=== PATIENT | female | born 1970 | race Caucasian/White ===

== ENCOUNTER → 2016-12-19 | Outpatient (REF) | payer OTHER ==
[~2016-12-19] MED LIST: /ACETCOD2T PO; /LAMO10TA OR; /LAMO10TA PO; /LOR25TA PO; BUSP10TA2 OR; BUSP30TA OR; CELE40TA OR; CLIN300C OR; EFFE150C OR; FLEXERIL PO; FOLI1TAB OR; FURO20TA2 OR; HYDR7.5T38 PO; HYDROCODONE PO; HYDROCODONE/APAP; HYDROCODONE/APAP PO; IMIT100T OR; IMIT5SPR SQ; L-THPOW PO; LASI20TA OR; LASI20TA PO; LEVA500T OR; LEVO150T OR; LEVO200T OR; LITH300T2 OR; LYRI75CA OR; LYRI75CA PO; MINI2CAP PO; MIRALEX OR; MULTIVIT PO; NABU500T OR; NEUR300C OR; NICORETTE GUM OR; NORCOBULK PO; PRED10TA2 OR; PRED50TA OR; RELP40TA PO; REME15TA PO; SAPH1SUB10 SL; SAPH5SUB3 PO; SAPHRIS SL; SENN8.6T5 OR; SERO200T OR; SERO200T PO; SERO200T2 PO; SERO400T OR; SERO400T PO; SOMA350T OR; SOMA350T PO; Saphris SL; TOPA100T8 PO; TOPA50TA7 PO; TRAZ300T2 PO; TRAZ50TA OR; TRAZ50TA2 PO; VENL100T OR; VENL150C43 PO; VENTAER INH; VITA-113 PO; VITAMIN B1 PO; VOLT1GEL EX; XANA1TAB2 OR; XANA1TAB2 PO; ZOMI5TAB PO; ZONI50CA3 PO; ZONISAMIDE OR; ZONISAMIDE PO; [UNRECOGNIZED DRUG - CODE] PO; [UNRECOGNIZED DRUG - OTHER] SL; liothyronine PO; lortab PO; norco OR; vitamin b12 IM; zonisamide OR
[2016-12-20 13:38] LABS: CALCIUM OXALATE CRYSTALS LARGE
== END ==
LOC: M LAB REF 12:21
PROVIDERS: ATTEND Family Medicine Addiction Medicine
DX: R31.0 Gross hematuria (principal)

== ENCOUNTER → 2017-03-17 | Outpatient (CLI) | payer OTHER ==
[2017-03-17 13:06] LABS: ALBUMIN 3.6 GM/DL (3.2-5.2); ALBUMIN/GLOBULIN RATIO 0.92 (1.00-1.93); ALKALINE PHOSPHATASE 84 U/L (45-117); ALT/SGPT 19 U/L (12-78); ANION GAP 6 MEQ/L (8-16); AST/SGOT 8 U/L (15-37); BILIRUBIN,TOTAL 0.2 MG/DL (0.2-1.0); BLOOD UREA NITROGEN 10 MG/DL (7-18); CALCIUM LEVEL 8.7 MG/DL (8.5-10.1); CARBON DIOXIDE LEVEL 25 MEQ/L (21-32); CHLORIDE LEVEL 109 MEQ/L (98-107); CHOLESTEROL LEVEL 252 MG/DL (<200); CREATININE FOR GFR 0.76 MG/DL (0.55-1.02); GLOMERULAR FILTRATION RATE > 60.0 (>58); GLUCOSE, FASTING 88 MG/DL (70-105); SODIUM LEVEL 140 MEQ/L (136-145); TOTAL PROTEIN 7.5 GM/DL (6.4-8.2); TRIGLYCERIDES LEVEL 74 MG/DL (<150)
== END ==
LOC: M LAB 11:52
PROVIDERS: ATTEND Family Medicine Addiction Medicine
DX: E03.8 Other specified hypothyroidism (principal); E55.9 Vitamin D deficiency, unspecified

== ENCOUNTER → 2017-03-17 | Outpatient (CLI) | payer OTHER ==
[2017-03-17 12:29] LABS: BASO # 0.1 K/mm3 (0.0-0.2); BASO % 0.8 % (0.0-1.0); EOS # 0.1 K/mm3 (0.0-0.50); EOS % 1.8 % (0.0-3.0); LYMPH # 1.7 K/mm3 (1.5-4.5); MEAN CORPUSCULAR HEMOGLOBIN 32.7 pg (27.0-33.0); MEAN CORPUSCULAR HGB CONC 32.9 g/dl (32.0-36.5); MEAN CORPUSCULAR VOLUME 99.4 fl (80.0-96.0); MONO # 0.4 K/mm3 (0.0-0.8); MONO % 4.8 % (0.0-5.0); NEUTROPHILS % 67.9 % (36.0-66.0); RED CELL DISTRIBUTION WIDTH 12.7 % (11.5-14.5); WHITE BLOOD COUNT 7.3 K/mm3 (4.0-10.0)
[2017-03-17 12:59] LABS: ALBUMIN 3.6 GM/DL (3.2-5.2); ALBUMIN/GLOBULIN RATIO 0.95 (1.00-1.93); ALKALINE PHOSPHATASE 80 U/L (45-117); ALT/SGPT 15 U/L (12-78); ANION GAP 6 MEQ/L (8-16); AST/SGOT 7 U/L (15-37); BILIRUBIN,TOTAL 0.2 MG/DL (0.2-1.0); BLOOD UREA NITROGEN 11 MG/DL (7-18); CALCIUM LEVEL 8.6 MG/DL (8.5-10.1); CARBON DIOXIDE LEVEL 25 MEQ/L (21-32); CHLORIDE LEVEL 109 MEQ/L (98-107); CREATININE FOR GFR 0.77 MG/DL (0.55-1.02); GLOMERULAR FILTRATION RATE > 60.0 (>58); GLUCOSE, FASTING 92 MG/DL (70-105); POTASSIUM SERUM 4.1 MEQ/L (3.5-5.1); SODIUM LEVEL 140 MEQ/L (136-145); TOTAL PROTEIN 7.4 GM/DL (6.4-8.2)
[2017-03-21 14:15] LABS: TOPIRAMATE LEVEL 4.8 ug/mL (2.0-25.0)
== END ==
LOC: M LAB 11:57
PROVIDERS: ATTEND Psychiatry & Neurology Neurology
DX: G40.89 Other seizures (principal)

== ENCOUNTER → 2017-03-29 | Outpatient (REF) | payer OTHER | LOC: M LAB REF 17:02 | PROVIDERS: ATTEND Family Medicine Addiction Medicine | DX: E55.9 Vitamin D deficiency, unspecified (principal) ==

== ENCOUNTER 2017-05-30 12:32 | Emergency (ER) | payer OTHER ==
[~2017-05-30] VITALS: Ht 160 cm; Wt 73.0 kg
[~2017-05-30 12:32] MED LIST changes: +TOPA100T12 PO; -TOPA100T8 PO; -TOPA50TA7 PO; +TOPA50TA8 PO
[2017-05-30 12:36] VITALS: BP 109/72
[2017-05-30] MEDS ORDERED: NS 1,000 ML IV SCH (12:51)
[2017-05-30 13:25] LABS: VENOUS BASE EXCESS -5.1 (-2.0-2.0); VENOUS O2 SATURATION 92.9 % (60.0-80.0); VENOUS PARTIAL PRESSURE O2 66.7 mmHg (30.0-50.0); VENOUS STANDARD HCO3 20.2 MEQ/L; VENOUS TOTAL CO2 21.5 MEQ/L (24.0-28.0)
[2017-05-30 13:48] LABS: BASO % 0.4 % (0.0-1.0); EOS # 0.1 K/mm3 (0.0-0.50); EOS % 0.9 % (0.0-3.0); LARGE UNSTAINED CELL # 0.2 K/mm3 (0.0-0.4); LARGE UNSTAINED CELL % 1.6 % (0.0-4.0); LYMPH # 2.4 K/mm3 (1.5-4.5); LYMPH % 23.7 % (24.0-44.0); MEAN CORPUSCULAR HEMOGLOBIN 32.9 pg (27.0-33.0); MEAN CORPUSCULAR HGB CONC 33.9 g/dl (32.0-36.5); MEAN CORPUSCULAR VOLUME 96.9 fl (80.0-96.0); MONO # 0.4 K/mm3 (0.0-0.8); MONO % 3.6 % (0.0-5.0); NEUTROPHILS # 7.2 K/mm3 (1.8-7.7); NEUTROPHILS % 69.8 % (36.0-66.0); PLATELET COUNT, AUTOMATED 246 k/mm3 (150-450); RED CELL DISTRIBUTION WIDTH 12.6 % (11.5-14.5); WHITE BLOOD COUNT 10.3 K/mm3 (4.0-10.0)
[2017-05-30 13:54] LABS: CONTROL LINE HCG INT CTR LINE PRESENT
[2017-05-30] MEDS ORDERED: XANA0.25 PO (14:11)
[2017-05-30 14:29] LABS: ALBUMIN 3.5 GM/DL (3.2-5.2); ALKALINE PHOSPHATASE 78 U/L (45-117); ALT/SGPT 19 U/L (12-78); ANION GAP 10 MEQ/L (8-16); AST/SGOT 10 U/L (15-37); BILIRUBIN,DIRECT < 0.1 MG/DL (0.0-0.2); BILIRUBIN,TOTAL 0.2 MG/DL (0.2-1.0); BLOOD UREA NITROGEN 10 MG/DL (7-18); CALCIUM LEVEL 8.2 MG/DL (8.5-10.1); CARBON DIOXIDE LEVEL 20 MEQ/L (21-32); CHLORIDE LEVEL 110 MEQ/L (98-107); CREATININE FOR GFR 0.71 MG/DL (0.55-1.02); GLOMERULAR FILTRATION RATE > 60.0 (>58); GLUCOSE, FASTING 69 MG/DL (70-105); POTASSIUM SERUM 4.3 MEQ/L (3.5-5.1); SODIUM LEVEL 140 MEQ/L (136-145)
--- NOTE | 2017-06-01 08:25 | ECGEPIP ---
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
== END 2017-05-30 15:53 | disposition left against medical advice (07) ==
LOC: M ED 12:32
DX: R55 Syncope and collapse (principal); J45.909 Unspecified asthma, uncomplicated; Z72.0 Tobacco use; E03.9 Hypothyroidism, unspecified
CPT/HCPCS: 36415; 80048; 80076; 82550; 82803; 83930; 84443; 84703; 85025; 93005; 93041; 94760; 99285; G0480

== ENCOUNTER 2017-06-02 19:11 | Emergency (ER) | payer OTHER ==
[~2017-06-02] VITALS: Ht 160 cm; Wt 80.0 kg
[~2017-06-02 19:11] MED LIST changes: +XANA0.25 PO
[2017-06-02] MEDS ORDERED: NS 1,000 ML IV ONE (19:15)
[2017-06-02 19:42] LABS: VENOUS BASE EXCESS -6.9 (-2.0-2.0); VENOUS O2 SATURATION 99.1 % (60.0-80.0); VENOUS PARTIAL PRESSURE CO2 33.8 mmHg (38.0-50.0); VENOUS PARTIAL PRESSURE O2 158.7 mmHg (30.0-50.0); VENOUS TOTAL CO2 18.9 MEQ/L (24.0-28.0)
[2017-06-02 19:44] LABS: BASO % 0.7 % (0.0-1.0); EOS # 0.1 K/mm3 (0.0-0.50); EOS % 1.5 % (0.0-3.0); LARGE UNSTAINED CELL # 0.2 K/mm3 (0.0-0.4); LARGE UNSTAINED CELL % 2.5 % (0.0-4.0); LYMPH # 2.5 K/mm3 (1.5-4.5); LYMPH % 33.7 % (24.0-44.0); MEAN CORPUSCULAR HEMOGLOBIN 31.6 pg (27.0-33.0); MEAN CORPUSCULAR HGB CONC 33.1 g/dl (32.0-36.5); MEAN CORPUSCULAR VOLUME 95.7 fl (80.0-96.0); MONO # 0.4 K/mm3 (0.0-0.8); MONO % 6.2 % (0.0-5.0); NEUTROPHILS # 3.9 K/mm3 (1.8-7.7); NEUTROPHILS % 55.4 % (36.0-66.0); PLATELET COUNT, AUTOMATED 258 k/mm3 (150-450); RED CELL DISTRIBUTION WIDTH 12.6 % (11.5-14.5)
[2017-06-02 20:26] LABS: ALBUMIN 3.7 GM/DL (3.2-5.2); ALBUMIN/GLOBULIN RATIO 1.03 (1.00-1.93); ALKALINE PHOSPHATASE 81 U/L (45-117); ALT/SGPT 14 U/L (12-78); ANION GAP 13 MEQ/L (8-16); AST/SGOT 7 U/L (15-37); BILIRUBIN,DIRECT < 0.1 MG/DL (0.0-0.2); BILIRUBIN,TOTAL 0.2 MG/DL (0.2-1.0); BLOOD UREA NITROGEN 6 MG/DL (7-18); CALCIUM LEVEL 8.6 MG/DL (8.5-10.1); CARBON DIOXIDE LEVEL 17 MEQ/L (21-32); CHLORIDE LEVEL 111 MEQ/L (98-107); CREATININE FOR GFR 0.84 MG/DL (0.55-1.02); GLOMERULAR FILTRATION RATE > 60.0 (>58); GLUCOSE, FASTING 97 MG/DL (70-105); POTASSIUM SERUM 3.5 MEQ/L (3.5-5.1); SODIUM LEVEL 141 MEQ/L (136-145); TOTAL PROTEIN 7.3 GM/DL (6.4-8.2)
[2017-06-02 22:08] LABS: METHADONE URINE NEGATIVE (NEGATIVE)
[2017-06-03 00:45] VITALS: BP 130/73
[2017-06-03] MEDS ORDERED: LAMI1TAB7 PO (07:57)
[2017-06-03] MEDS ORDERED: ALBU17IN INH (07:57)
[2017-06-03] MEDS ORDERED: SERO400T PO (07:57)
[2017-06-03] MEDS ORDERED: ALPR1TAB3 PO (07:57)
[2017-06-03] MEDS ORDERED: SERO1TAB PO (07:57)
[2017-06-03] MEDS ORDERED: LEVO88TA24 PO (07:57)
[2017-06-03] MEDS ORDERED: PRAZ2CAP PO (07:57)
[2017-06-03] MEDS ORDERED: ASEN5TA SL (07:57)
[2017-06-03] MEDS ORDERED: CARI350T PO (07:57)
[2017-06-03] MEDS ORDERED: TOPA50TA8 PO ×2 (08:01)
[2017-06-03] MEDS ORDERED: ZONI100C2 PO (08:01)
[2017-06-03] MEDS ORDERED: IMIT6INJ SC (08:01)
[2017-06-03] MEDS ORDERED: VITA100066 PO (08:01)
[2017-06-03] MEDS ORDERED: VENL150C43 PO (08:01)
--- NOTE | 2017-06-03 21:32 | ECGEPIP ---
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
== END 2017-06-03 01:40 | disposition home or self-care (01) ==
LOC: M ED 19:11
DX: T42.4X1A Poisoning by benzodiazepines, accidental (unintentional), initial encounter (principal); T42.8X1A Poisoning by antiparkinsonism drugs and other central muscle-tone depressants, accidental (unintentional), initial encounter

== ENCOUNTER 2017-06-03 04:23 | Inpatient (IN) | payer OTHER ==
[~2017-06-03] VITALS: Ht 160 cm; Wt 78.9 kg
[2017-06-03 06:18] LABS: MEAN CORPUSCULAR HEMOGLOBIN 32.3 pg (27.0-33.0); MEAN CORPUSCULAR HGB CONC 33.3 g/dl (32.0-36.5); MEAN CORPUSCULAR VOLUME 96.8 fl (80.0-96.0); RED CELL DISTRIBUTION WIDTH 12.7 % (11.5-14.5); WHITE BLOOD COUNT 9.3 K/mm3 (4.0-10.0)
[2017-06-03 06:36] LABS: METHADONE URINE NEGATIVE (NEGATIVE)
[2017-06-03] MEDS ORDERED: LEVO88TA24 PO (07:57)
[2017-06-03] MEDS ORDERED: SERO1TAB PO (07:57)
[2017-06-03] MEDS ORDERED: CARI350T PO (07:57)
[2017-06-03] MEDS ORDERED: PRAZ2CAP PO (07:57)
[2017-06-03] MEDS ORDERED: SERO400T PO (07:57)
[2017-06-03] MEDS ORDERED: ALBU17IN INH (07:57)
[2017-06-03] MEDS ORDERED: LAMI1TAB7 PO (07:57)
[2017-06-03] MEDS ORDERED: ASEN5TA SL (07:57)
[2017-06-03] MEDS ORDERED: ALPR1TAB3 PO (07:57)
[2017-06-03] MEDS ORDERED: VENL150C43 PO (08:01)
[2017-06-03] MEDS ORDERED: TOPA50TA8 PO ×2 (08:01)
[2017-06-03] MEDS ORDERED: IMIT6INJ SC (08:01)
[2017-06-03] MEDS ORDERED: ZONI100C2 PO (08:01)
[2017-06-03] MEDS ORDERED: VITA100066 PO (08:01)
[2017-06-03 09:10] LABS: ALBUMIN 3.4 GM/DL (3.2-5.2); ALKALINE PHOSPHATASE 79 U/L (45-117); ALT/SGPT 13 U/L (12-78); ANION GAP 10 MEQ/L (8-16); AST/SGOT 8 U/L (15-37); BILIRUBIN,DIRECT < 0.1 MG/DL (0.0-0.2); BILIRUBIN,TOTAL 0.3 MG/DL (0.2-1.0); BLOOD UREA NITROGEN 4 MG/DL (7-18); CALCIUM LEVEL 8.5 MG/DL (8.5-10.1); CARBON DIOXIDE LEVEL 22 MEQ/L (21-32); CHLORIDE LEVEL 114 MEQ/L (98-107); CREATININE FOR GFR 0.64 MG/DL (0.55-1.02); GLOMERULAR FILTRATION RATE > 60.0 (>58); GLUCOSE, FASTING 74 MG/DL (70-105); POTASSIUM SERUM 3.9 MEQ/L (3.5-5.1); SODIUM LEVEL 146 MEQ/L (136-145); TOTAL PROTEIN 6.8 GM/DL (6.4-8.2)
[2017-06-03] MEDS ORDERED: LEVOTHYROXINE 88MCG TABLET (0.088 MG) PO SCH (09:30)
[2017-06-03] MEDS ORDERED: VITAMIN D 1,000 INTERNATIONAL UNITS TABLET PO SCH (09:30)
[2017-06-03] MEDS ORDERED: VENLAFAXINE **XR** 75MG CAPSULE PO ONE ×2 (09:30→21:00)
[2017-06-03] MEDS ORDERED: lamoTRIgine 100MG TAB PO ONE (09:30)
[2017-06-03] MEDS ORDERED: ASENAPINE 5 MG SUBLINGUAL TAB (SAPHRIS) SL SCH (09:30)
[2017-06-03] MEDS ORDERED: TOPIRAMATE (TopAMAX) 25 MG TAB PO ONE (09:30)
[2017-06-03 12:57] VITALS: BP 133/88
[2017-06-03] MEDS ORDERED: MOM 30ML SUSPENSION UDC PO PRN (15:30)
[2017-06-03] MEDS ORDERED: ALBUTEROL 90 MCG/ACT 8GM HFA INHALER INH PRN (15:30)
[2017-06-03] MEDS ORDERED: MAALOX 30 ML SUSP *UDC PO PRN (15:30)
[2017-06-03] MEDS ORDERED: SUMAtriptan SUCCINATE 6 MG/0.5 ML VIAL SC PRN (15:30)
[2017-06-03 18:00] VITALS: BP 132/85
[2017-06-03] MEDS: ASENAPINE 5 MG SUBLINGUAL TAB (SAPHRIS) SL SCH (21:40)
[2017-06-03] MEDS: VITAMIN D 1,000 INTERNATIONAL UNITS TABLET PO SCH (21:40)
[2017-06-03] MEDS: ZONISAMIDE 100 MG CAP (ZONEGRAN) PO SCH (21:41)
[2017-06-03] MEDS: QUEtiapine FUMARATE 200 MG TAB PO SCH (21:41)
[2017-06-03] MEDS: TOPIRAMATE (TopAMAX) 100 MG TAB PO SCH (21:41)
[2017-06-03] MEDS: lamoTRIgine 100MG TAB PO SCH (21:41)
[2017-06-03] MEDS: traZODone 50 MG TAB PO PRN (21:43)
[2017-06-03] MEDS: VENLAFAXINE **XR** 75MG CAPSULE PO SCH (21:43)
[2017-06-03] MEDS: QUEtiapine FUMARATE 100 MG TAB PO SCH (21:43)
[2017-06-03] MEDS: PRAZOSIN 1 MG CAP PO SCH (21:43)
[2017-06-04] MEDS ORDERED: LEVOTHYROXINE 88MCG TABLET (0.088 MG) PO SCH (06:00)
[2017-06-04 06:26] VITALS: BP 139/95
[2017-06-04 07:44] LABS: ALBUMIN 3.1 GM/DL (3.2-5.2); ALBUMIN/GLOBULIN RATIO 0.89 (1.00-1.93); ALKALINE PHOSPHATASE 73 U/L (45-117); ALT/SGPT 13 U/L (12-78); ANION GAP 13 MEQ/L (8-16); AST/SGOT 13 U/L (15-37); BILIRUBIN,TOTAL 0.3 MG/DL (0.2-1.0); BLOOD UREA NITROGEN 8 MG/DL (7-18); CALCIUM LEVEL 8.2 MG/DL (8.5-10.1); CARBON DIOXIDE LEVEL 17 MEQ/L (21-32); CHLORIDE LEVEL 116 MEQ/L (98-107); CREATININE FOR GFR 0.56 MG/DL (0.55-1.02); GLOMERULAR FILTRATION RATE > 60.0 (>58); GLUCOSE, FASTING 82 MG/DL (70-105); POTASSIUM SERUM 3.9 MEQ/L (3.5-5.1); SODIUM LEVEL 146 MEQ/L (136-145); T UPTAKE 36 % (30-39); THYROXINE (T4) 5.9 UG/DL (4.5-12.0); TOTAL PROTEIN 6.6 GM/DL (6.4-8.2)
[2017-06-04] MEDS: TOPIRAMATE (TopAMAX) 25 MG TAB PO SCH (10:00)
[2017-06-04] MEDS: ASENAPINE 5 MG SUBLINGUAL TAB (SAPHRIS) SL SCH ×2 (10:00→20:41)
[2017-06-04] MEDS: VITAMIN D 1,000 INTERNATIONAL UNITS TABLET PO SCH ×2 (10:00→20:40)
[2017-06-04] MEDS: VENLAFAXINE **XR** 75MG CAPSULE PO SCH ×2 (10:01→20:40)
[2017-06-04] MEDS: lamoTRIgine 100MG TAB PO SCH ×2 (10:01→20:40)
--- NOTE | 2017-06-04 11:30 | MHHPE ---
DATE OF ADMISSION: 06/03/2017 CHIEF COMPLAINT: Feels stressed. HISTORY OF PRESENT ILLNESS: She is a 46-year-old female. She lives with her boyfriend. She lost her a couple of years ago. She came in after there were concerns that she had taken an overdose. History is obtained from the chart and from the patient. She had apparently been arrested for shoplifting yesterday, says was going towards the door to call her boyfriend, and she was arrested. She then at some point had talked to her psychiatrist's nurse on the phone, said had questions regarding her medications, and then she fainted. Apparently, the nurse called the ambulance. I am not sure of the details. She was brought to the emergency room, seen, and then discharged as apparently the thought was that she had taken an overdose of some of her medicines accidentally. There was some concern she had taken an extra Xanax and soma. When she went home, apparently the boyfriend was concerned, and she acknowledged that she had wanted to kill herself. It was thought this was an overdose which was intentional. She was brought back to the hospital. She disputes this, says had not taken any extra pills, but that she had been stressed, says she and her boyfriend had an argument, and that she may have indicated she would be better off or words to that effect. Denies that she had any thoughts of hurting herself or that she took an overdose. She is being seen at the mental health clinic, [facility], sees Dr. Beltran there. She is on various psychotropics, has been treated for bipolar disorder apparently, and is on Asenapine 5 mg twice a day, Lamictal 100 mg twice daily and prazosin at bedtime. She is also on 500 mg of quetiapine, 150 mg of Topamax, 400 mg of zonisamide, and Effexor 300 mg a day. PAST PSYCHIATRIC HISTORY: She had admissions here in the past, the last one was apparently two years ago, and is being seen at the [facility]. MEDICAL HISTORY: Says has migraines, aches and pains, and that she takes Carisoprodol for that. MENTAL STATUS EXAMINATION: She is neat. Somewhat superficially cooperative. She is coherent. There is no agitation. No psychomotor retardation. Affect is restricted, but reactive. Denies suicidal thoughts or intents. No homicidal ideas or intents. Currently no evidence of any psychosis. Cognition is grossly intact. Judgment and insight are quite questionable. ASSESSMENT: Bipolar disorder, current episode depressed. Rule out major depressive disorder, recurrent. Status post overdose. Difficulties with relationship with boyfriend. PLAN: She is admitted to the inpatient psychiatry unit and placed on relevant precautions, we will look at obtaining collateral information to help clarify some of the story. She will be resumed on her current medications, but we will make adjustments; for example, no soma or alprazolam for the next couple of days and to streamline other medications as well. She will be involved individual, group and milieu therapy. She will receive a medicine consult if indicated. She will be discharged with followup once she is stable. I would anticipate a 5-7 day stay. She will be seen by the psychiatrist assigned to her, as well as, the treatment team, tomorrow. The assessment took 30 minutes.
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
[2017-06-04 18:00] VITALS: BP 121/73
[2017-06-04] MEDS: PRAZOSIN 1 MG CAP PO SCH (20:40)
[2017-06-04] MEDS: TOPIRAMATE (TopAMAX) 100 MG TAB PO SCH (20:40)
[2017-06-04] MEDS: ZONISAMIDE 100 MG CAP (ZONEGRAN) PO SCH (20:40)
[2017-06-04] MEDS: QUEtiapine FUMARATE 100 MG TAB PO SCH (20:40)
[2017-06-04] MEDS: QUEtiapine FUMARATE 200 MG TAB PO SCH (20:41)
--- NOTE | 2017-06-04 22:12 | HPE ---
DATE OF ADMISSION: 06/03/2017 HISTORY OF PRESENT ILLNESS: Please refer to psychiatric history and evaluation for further details on this admission. This examination and history is intended for medical issues, which may need treatment, followup or consultation on this 46-year-old female. ALLERGIES: ACETAMINOPHEN, ASPIRIN, IBUPROFEN, PENICILLIN, QUINOLONES. SOCIAL HISTORY: She is . She has a boyfriend. She smokes 1/2 pack of cigarettes per day. Does not drink alcohol. Does not use recreational drugs. She has two grown children. PAST MEDICAL HISTORY: She is edentulous. She states that she has dentures at home. Hypothyroidism, on levothyroxine. Depression. History of four suicidal attempts via overdose. Chronic back pain. Seizure disorder. She states that she has not had a seizure for over 6 months. She follows with Dr. Tena in [place]. History of migraines. Chronic obstructive pulmonary disease (COPD). History of pulmonary nodules. Gastroesophageal reflux disease (GERD). Bipolar disorder. PAST SURGICAL HISTORY: Cholecystectomy, Linh fundoplication, section times two, tubal ligation, endometrial ablation in 2004. LABORATORY STUDIES: WBC 9.3, hemoglobin 13.4, hematocrit 40.2, platelets 257. Sodium 146, potassium 3.9, chloride 114, BUN 4, creatinine 0.64. TSH slightly elevated at 4.67. We will get a thyroid profile, may need dose adjustment. Urine was positive for benzodiazepine. Positive for cannabinoids despite patient stating that she did not use recreational drugs. CURRENT MEDICATIONS: - albuterol two puffs by mouth every four hours as needed for shortness of breath or wheeze - alprazolam 1 mg by mouth three times a day as needed for anxiety - Saphris 5 mg sublingually twice a day - Soma 350 mg by mouth three times a day as needed for spasms - vitamin D 1000 units by mouth twice a day - Lamictal 100 mg by mouth twice a day - levothyroxine 88 mcg by mouth daily - Prazosin 6 mg by mouth at night - Seroquel 100 mg by mouth at night - Seroquel 400 mg by mouth at night - Imitrex injections 6 mg subcutaneously as needed for migraines - Topamax 50 mg by mouth daily in the morning and 100 mg by mouth at night - zonisamide 400 mg by mouth at night - Effexor 150 mg by mouth twice a day REVIEW OF SYSTEMS: Ten systems review was done and was unremarkable. PHYSICAL EXAMINATION: GENERAL: 46-year-old cooperative female in no acute distress. Height 62 inches, weight 78.9 kg, Body Mass Index (BMI) 30.8. Blood pressure 132/85, pulse 89, respirations 16, temperature 97.9. The patient is alert and oriented. HEENT: Pupils are equal and reactive to light. Extraocular muscles intact. Sclerae clear. Conjunctivae normal. No facial asymmetry. Pharynx, gums and tongue pink and moist. Tongue is midline. NECK: Supple without lymphadenopathy, thyromegaly or goiter. CHEST: Clear to auscultation without wheeze or retraction. HEART: Regular. ABDOMEN: Benign. Bowel sounds positive. GENITOURINARY/RECTAL: Not done. EXTREMITIES: Equal strength, full range of motion. No clubbing, cyanosis, and edema. Peripheral pulses equal and palpable bilaterally. SKIN: Warm and dry. IMPRESSION/PLAN: 1. Psychiatric plan per psychiatry. 2. Nicotine dependence, patch available. 3. Continue medical followup with Dr. Mcdonough, her primary care provider. 4. Hypothyroidism. TSH slightly elevated. Get thyroid profile, may need dose adjustment. 5. Chronic back pain, stable. Continue Soma. 6. Seizure disorder. Continue followup with Dr. Tena in [place]. 7. History of migraines stable. Continue Topamax and Imitrex as needed. 8. Pulmonary history of chronic obstructive pulmonary disease (COPD) and nodule. She states that she missed her appointment at [facility]. Nodules were stable at that time and she needs her primary care provider to refer her to another pulmonology to follow with, as she states that she can no longer reschedule there. 9. Vitamin D deficiency. Continue replacement.
[2017-06-05] MEDS: LEVOTHYROXINE 100MCG TABLET (0.1MG) PO SCH (06:04)
[2017-06-05 07:36] VITALS: BP 116/69
[2017-06-05] MEDS: lamoTRIgine 100MG TAB PO SCH ×2 (08:12→20:39)
[2017-06-05] MEDS: TOPIRAMATE (TopAMAX) 25 MG TAB PO SCH (08:12)
[2017-06-05] MEDS: VENLAFAXINE **XR** 75MG CAPSULE PO SCH ×2 (08:12→20:38)
[2017-06-05] MEDS: ASENAPINE 5 MG SUBLINGUAL TAB (SAPHRIS) SL SCH ×2 (08:12→20:39)
[2017-06-05] MEDS: VITAMIN D 1,000 INTERNATIONAL UNITS TABLET PO SCH ×2 (08:12→20:39)
[2017-06-05 08:30] LABS: ANION GAP 14 MEQ/L (8-16); BLOOD UREA NITROGEN 9 MG/DL (7-18); CALCIUM LEVEL 8.3 MG/DL (8.5-10.1); CARBON DIOXIDE LEVEL 18 MEQ/L (21-32); CHLORIDE LEVEL 112 MEQ/L (98-107); CREATININE FOR GFR 0.97 MG/DL (0.55-1.02); GLUCOSE, FASTING 180 MG/DL (70-105); POTASSIUM SERUM 3.2 MEQ/L (3.5-5.1); SODIUM LEVEL 144 MEQ/L (136-145)
[2017-06-05 08:53] LABS: GLOMERULAR FILTRATION RATE > 60.0 (>58)
--- NOTE | 2017-06-05 17:33 | MHIPNPDOC ---
[facility] Progress Note Progress Note DATE OF SERVICE: 06/05/17 HISTORY: Patient reported having a good visit from her boyfriend yesterday. She stated that he seemed to be very caring regarding her admission to the hospital and felt he was genuinely concerned. She feels that her medications have been working well for her and helping her maintain stability; the primary stressor she can identify is a lack of purpose in her life. She misses having a dog like she used to. Patient states she plans on becoming involved in volunteering upon discharge as this had been enjoyable to her in the past, she is most interested in working with animals or the homeless population. She also feels that previously she had not taken advantage of group programs during her previous admissions and has found them helpful during this stay. VITAL SIGNS: See below. NEW TEST RESULTS: see below. CURRENT MEDICATIONS: See below. MENTAL STATUS EXAMINATION: Patient is a 46-year old female, who appears older than the stated age; she is dressed in [facility] and has good hygiene; she is calm and cooperative with the interview and makes appropriate eye contact Speech: Is fluent, normal volume and tone Thought processes including: linear, logical, coherent, goal-oriented Thought content: Denies SI or HI, focused on keeping herself busy. Description of associations: intact Description of abnormal or psychotic thoughts: denies auditory/visual hallucinations, does not appear to respond to internal stimuli; no paranoid or delusional thoughts elicited Judgment: fair Insight: fair Orientation: x3 Recent and remote memory: intact Attention span and concentration: intact Mood: "much better". Affect: euthymic, full range, congruent to stated mood and thought content DIAGNOSES: Bipolar Disorder Unspecified Personality Disorder with Cluster B traits ASSESSMENT: Patient appears to have passed her crisis point; she has limited coping skills, which she recognizes in herself. She has been engaging well in group activities while on the unit and indicates she has found much benefit from them. She is formulating plans to maintain her coping abilities while in the outpatient setting. Patient has demonstrated poor coping skills in the past and this appears to have been the primary bulk driver behind her current admission. She feels that she would benefit from discharge at this time with follow-up at her regular outpatient provider. MANAGEMENT PLAN: Will continue current medications and continue encouraging patient to attend and interact with group activities. Will discuss with discharge planners to prepare for discharge process, patient appears stable at this time and there are no current safety concerns. TIME SPENT: 15 minutes. Vital Signs Vital Signs Date Time Temp Pulse Resp B/P (MAP) Pulse Ox O2 Delivery O2 Flow Rate FiO2 06/05/17 07:36 97.6 102 16 116/69 (85) 06/04/17 06:26 Room Air 06/03/17 08:45 96 Laboratory Data 24H Labs Laboratory Tests 2 06/05/17 07:39: Anion Gap 14, Glomerular Filtration Rate > 60.0, Blood Urea Nitrogen 9, Creatinine 0.97#, Sodium Level 144, Potassium Level 3.2L, Chloride Level 112H, Carbon Dioxide Level 18L, Calcium Level 8.3L CBC/BMP Laboratory Tests 06/05/17 07:39 Calcium Level 8.3 L Current Medications Current Medications Al Hydrox/Mg Hydrox/Simethicone (Mylanta) 30 ml Q4HP PRN PO HEARTBURN/ INDIGESTION; Start 06/03/17 at 15:30; Stop 07/03/17 at 15:29 Albuterol Sulfate (Proventil, Ventolin Hfa) 2 puff Q4HP PRN INH SHORTNESS OF BREATH; Start 06/03/17 at 15:30; Stop 07/03/17 at 15:29 Asenapine (Saphris) 5 mg BID SL Last administered on 06/05/17 08:12; Start at 21:00; Stop 07/03/17 at 20:59 Asenapine (Saphris) 5 mg NOW SL Last administered on 06/03/17 10:06; Start at 09:30; Stop 06/03/17 at 15:45; Status DC Home Med (Med Rec Complete!) ASDIRECTED XX ; Start 06/03/17 at 08:15; Stop at 08:15; Status DC Lamotrigine (LaMICtal) 100 mg BID PO Last administered on 06/05/17 08:12; Start 06/03/17 at 21:00; Stop 07/03/17 at 20:59 Levothyroxine Sodium (Synthroid) 88 mcg DAILY@06 PO Last administered on 06:36; Start 06/04/17 at 06:00; Stop 06/04/17 at 21:40; Status DC Levothyroxine Sodium (Synthroid) 88 mcg NOW PO Last administered on 06/03/17 10:05; Start 06/03/17 at 09:30; Stop 06/03/17 at 15:45; Status DC Levothyroxine Sodium (Synthroid) 100 mcg DAILY@06 PO Last administered on 06:04; Start 06/05/17 at 06:00; Stop 07/05/17 at 05:59 Magnesium Hydroxide (Milk Of Magnesia) 30 ml DAILYPRN PRN PO CONSTIPATION; Start 06/03/17 at 15:30; Stop 07/03/17 at 15:29 Prazosin HCl (Minipress) 6 mg QHS PO Last administered on 06/04/17 20:40; Start 06/03/17 at 21:00; Stop 07/03/17 at 20:59 Quetiapine Fumarate (SEROquel) 100 mg QHS PO Last administered on 06/04/17 20: 40; Start 06/03/17 at 21:00; Stop 07/03/17 at 20:59 Quetiapine Fumarate (SEROquel) 400 mg QHS PO Last administered on 06/04/17 20: 41; Start 06/03/17 at 21:00; Stop 07/03/17 at 20:59 Sumatriptan Succinate (IMITREX INJection) 6 mg Q2HP PRN SC MIGRAINE; Start at 15:30; Stop 07/03/17 at 15:29 Topiramate (TopAMAX) 50 mg QAM PO Last administered on 06/05/17 08:12; Start 06/04/17 at 09:00; Stop 07/04/17 at 08:59 Topiramate (TopAMAX) 100 mg QHS PO Last administered on 06/04/17 20:40; Start 06/03/17 at 21:00; Stop 07/03/17 at 20:59 Trazodone HCl (Desyrel) 50 mg QHSP PRN PO INSOMNIA Last administered on 21:43; Start 06/03/17 at 15:30; Stop 07/03/17 at 15:29 Venlafaxine HCl (Effexor Xr) 150 mg BID PO Last administered on 8/22/17at 08:12; Start 06/03/17 at 21:00; Stop 07/03/17 at 20:59 Vitamin D (Vitamin D) 1,000 units BID PO Last administered on 06/05/17 08:12; Start 06/03/17 at 21:00; Stop 07/03/17 at 20:59 Vitamin D (Vitamin D) 1,000 units NOW PO Last administered on 06/03/17 10:06; Start 06/03/17 at 09:30; Stop 06/03/17 at 15:45; Status DC Zonisamide (Zonegran) 400 mg QHS PO Last administered on 06/04/17 20:40; Start 06/03/17 at 21:00; Stop 07/03/17 at 20:59 Allergies Coded Allergies: Penicillins (Verified Allergy, Severe, ANAPHYLACTIC SHOCK, 01/15/13) Acetaminophen (Verified Allergy, Intermediate, RASH, 01/15/13) Aspirin (Verified Allergy, Mild, RASH, 01/15/13) Ibuprofen (Verified Allergy, Mild, RASH, 01/15/13) Quinolones (Verified Allergy, Mild, CIPRO IV SITE REACTION: HIVES, ITCHING , 11/05/13) THEO CUMMINGS MD Jun 05, 2017 17:33
[2017-06-05 18:00] VITALS: BP 136/89
[2017-06-05] MEDS: QUEtiapine FUMARATE 100 MG TAB PO SCH (20:38)
[2017-06-05] MEDS: TOPIRAMATE (TopAMAX) 100 MG TAB PO SCH (20:38)
[2017-06-05] MEDS: ZONISAMIDE 100 MG CAP (ZONEGRAN) PO SCH (20:38)
[2017-06-05] MEDS: traZODone 50 MG TAB PO PRN (20:38)
[2017-06-05 20:39] VITALS: BP 142/83
[2017-06-05] MEDS: PRAZOSIN 1 MG CAP PO SCH (20:39)
[2017-06-05] MEDS: QUEtiapine FUMARATE 200 MG TAB PO SCH (20:39)
[2017-06-06] MEDS: LEVOTHYROXINE 100MCG TABLET (0.1MG) PO SCH (06:02)
[2017-06-06 06:52] VITALS: BP 112/69
[2017-06-06] MEDS: TOPIRAMATE (TopAMAX) 25 MG TAB PO SCH (08:18)
[2017-06-06] MEDS: lamoTRIgine 100MG TAB PO SCH (08:18)
[2017-06-06] MEDS: VENLAFAXINE **XR** 75MG CAPSULE PO SCH (08:18)
[2017-06-06] MEDS: ASENAPINE 5 MG SUBLINGUAL TAB (SAPHRIS) SL SCH (08:19)
[2017-06-06] MEDS: VITAMIN D 1,000 INTERNATIONAL UNITS TABLET PO SCH (08:19)
[2017-06-06] MEDS ORDERED: TRAZO50TA PO (11:23)
[2017-06-06] MEDS ORDERED: LEVO100T5 PO (11:23)
[2017-06-06] MEDS ORDERED: LAMO10TA PO (11:23)
--- NOTE | 2017-06-06 17:01 | MHDSPDOC ---
[facility] Discharge Summary Discharge Summary DATE OF ADMISSION: Jun 03, 2017 at 11:34 DATE OF DISCHARGE: Jun 06, 2017 at 13:20 DISCHARGE DIAGNOSES: 1. Bipolar Disorder 2. Borderline Personality Disorder REASON FOR ADMISSION: Patient threatened to commit suicide after an argument with her boyfriend. CONSULTANTS INVOLVED: None TREATMENT AND PROGRESS ON THE UNIT : Patient was given respite from her home situation; she was continued on her home medications. Patient rapidly recovered after engaging in group therapies on the unit. HOSPITAL COURSE: Patient was admitted for safety monitoring after she endorsed suicidal ideation with plans to overdose following an argument with her boyfriend. Once removed from her regular stressors she rapidly stabilized and cooperated readily with staff on the unit. She was maintained on her regular psychiatric medications without change; instead she was encouraged to engage in milieu activities with a focus on learning coping skills. Patient stated she was working on "taking what I've learned this time with me, I'm too old to be coming back". She acknowledged that she often felt bored/dissatisfied with her home life and stated she was planning on volunteering to keep herself busy upon discharge. A discussion was had with her boyfriend who felt that she was often unstable and did not like him attempting to help her with her medications. The patient was discharged to home with plan to follow-up with her regular outpatient providers. DISCHARGE ASSESSMENT: Patient experienced a temporary crisis related to her poor coping skills and diagnosis of Borderline Personality Disorder. Throughout her stay she did not appear to have active symptoms of an affective process. She was able to engage in milieu activities as well as develop future strategies to assist with similar situations if presented in the future. She did not require and adjustment to her medications as she felt these were helping her well. There were no acute safety concerns therefore patient was discharged to home with plan to follow-up with her regular providers. MENTAL STATUS EXAMINATION ON DISCHARGE: Patient is a 46-year old female, who appears older than stated age; she is dressed in [facility] with fair hygiene; she is calm and cooperative and makes appropriate eye contact Speech is fluent, with normal volume and rate Thought processes including: logical, linear, goal-oriented Thought content: abstraction intact; denies SI/HI Abstract reasoning, and computation: intact Description of associations: intact Description of abnormal or psychotic thoughts: denies AVH, does not appear internally stimulated; no evidence of delusions or paranoia Judgment: fair Insight: fair Orientation to x3 Recent and remote memory: intact Attention span and concentration: intact Mood: "really good" Affect: euthymic; congruent to stated mood and thought content MEDICATIONS ON DISCHARGE: no changes to home medications; see medication list below PLAN/FOLLOWUP ARRANGEMENTS: Will follow-up with her regular outpatient providers , next appointment scheduled for 06/11; patient given referral to [facility] Substance Abuse counseling The amount of time spent in the coordination of care for this patient was approximately 30 minutes. Vital Signs/I&Os Vital Signs Date Time Temp Pulse Resp B/P (MAP) Pulse Ox O2 Delivery O2 Flow Rate FiO2 06/06/17 06:52 97.0 78 16 112/69 (83) 06/05/17 18:00 Room Air 06/03/17 08:45 96 Medications Scheduled Asenapine (Saphris) 5 Mg Subl, 5 MG SL BID, (Reported) Cholecalciferol (Vitamin D) 1,000 Unit Tab, 1,000 UNIT PO BID, (Reported) Lamotrigine (Lamictal) 100 Mg Tab, 100 MG PO BID, (Reported) Lamotrigine (LaMICtal) 100 Mg Tab, 100 MG PO BID for MOOD, #14 Levothyroxine Sodium (Synthroid) 100 Mcg Tab, 100 MCG PO DAILY@06 for hypothyroidism, #7 Prazosin Hcl (Prazosin HCl) 2 Mg Cap, 6 MG PO QHS, (Reported) Quetiapine Fumerate (Seroquel) 100 Mg Tab, 100 MG PO QHS, (Reported) 500MG TOTAL QHS Quetiapine Fumerate (Seroquel) 400 Mg Tab, 400 MG PO QHS, (Reported) 500MG TOTAL QHS Venlafaxine Hydrochloride (Venlafaxine HCl ER) 150 Mg Cap, 150 MG PO BID, ( Reported) Zonisamide (Zonisamide) 100 Mg Cap, 400 MG PO QHS, (Reported) Scheduled PRN Albuterol Sulfate (Ventolin Hfa) 200 Puff/8 Gm Aers, 2 PUFF INH Q4H PRN for SHORTNESS OF BREATH, (Reported) Carisoprodol (Carisoprodol) 350 Mg Tab, 350 MG PO TID PRN for SPASMS, (Reported) Sumatriptan Succinate (Imitrex) 6 Mg/0.5 Ml Inj, 6 MG SC PRN PRN for MIGRAINE, ( Reported) Trazodone HCl (Trazodone HCl) 50 Mg Tab, 50 MG PO QHSP PRN for INSOMNIA, #7 Allergies Coded Allergies: Penicillins (Verified Allergy, Severe, ANAPHYLACTIC SHOCK, 01/15/13) Acetaminophen (Verified Allergy, Intermediate, RASH, 01/15/13) Aspirin (Verified Allergy, Mild, RASH, 01/15/13) Ibuprofen (Verified Allergy, Mild, RASH, 01/15/13) Quinolones (Verified Allergy, Mild, CIPRO IV SITE REACTION: HIVES, ITCHING , 11/05/13) THEO CUMMINGS MD Jun 06, 2017 17:01
== END 2017-06-06 13:20 | disposition home or self-care (01) | DRG 885 ==
LOC: M ED 04:23 → M ED INP 11:34 → M PSY 12:55
PROVIDERS: ADMIT Psychiatry & Neurology Psychiatry; ATTEND Psychiatry & Neurology Psychiatry
DX: F31.9 Bipolar disorder, unspecified (principal); F60.3 Borderline personality disorder; F17.210 Nicotine dependence, cigarettes, uncomplicated; E03.9 Hypothyroidism, unspecified; G40.909 Epilepsy, unspecified, not intractable, without status epilepticus; J44.9 Chronic obstructive pulmonary disease, unspecified; K21.9 Gastro-esophageal reflux disease without esophagitis; E55.9 Vitamin D deficiency, unspecified; M54.9 Dorsalgia, unspecified; R91.8 Other nonspecific abnormal finding of lung field; Z63.0 Problems in relationship with spouse or partner; Z88.0 Allergy status to penicillin; Z88.6 Allergy status to analgesic agent; Z88.1 Allergy status to other antibiotic agents; Z79.899 Other long term (current) drug therapy

== ENCOUNTER → 2017-09-21 | Outpatient (CLI) | payer MEDICARE ==
[~2017-09-21] MED LIST changes: +ALBU17IN INH; +ALPR1TAB3 PO; +ASEN5TA SL; +CARI350T PO; +IMIT6INJ SC; +LAMI1TAB7 PO; +LAMO10TA PO; +LEVO100T5 PO; +LEVO88TA24 PO; +PRAZ2CAP PO; +SERO1TAB PO; +TRAZO50TA PO; +VITA100066 PO; +ZONI100C2 PO
--- NOTE | 2017-09-21 11:25 | REPMRS ---
Patient History No known family history of cancer. Took unspecified hormones for 3 years. Digital Woman Screen Mammo: September 21, 2017 - Exam #: [id number] Bilateral CC and MLO view(s) were taken. Technologist: Opal Marx Technologist Prior study comparison: February 16, 2016, digital woman screen mammo performed at [facility]. November 13, 2014, digital woman screen mammo performed at [facility]. FINDINGS: There are scattered fibroglandular densities. There has been no change in the appearance of the mammogram from the prior studies. There is a mild amount of residual fibroglandular tissue which is fairly symmetric. There is no interval development of dominant mass, architectural distortion, or clustered microcalcification suggestive of malignancy. Scattered lymph nodes are seen in the axillae. No significant changes when compared with prior studies. ASSESSMENT: BI-RADS/ACR category 2 mammogram. Benign finding(s). Recommendation Routine screening mammogram in 1 year (for women over age 40). This mammogram was interpreted with the aid of an FDA-approved computer-aided dectection system. A. Negative x-ray reports should not delay biopsy if a dominant or clinically suspicious mass is present. B. Four to eight percent of cancers are not identified by mammography. C. Adenosis and dense breast may obscure an underlying neoplasm. Electronically Signed By: Asim Leach MD 09/21/17 1129
== END ==
LOC: M WHC 08:59
PROVIDERS: ATTEND Nurse Practitioner Family
DX: Z12.31 Encounter for screening mammogram for malignant neoplasm of breast (principal); Z92.29 Personal history of other drug therapy

== ENCOUNTER → 2017-11-02 | Outpatient (REF) | payer MEDICARE ==
[2017-11-02 17:22] LABS: APPEARANCE, URINE CLOUDY (CLEAR); BACTERIA, URINE AUTO 1+ (NEGATIVE); BILIRUBIN, URINE AUTO NEGATIVE (NEGATIVE); BLOOD, URINE BLOOD NEGATIVE (NEGATIVE); CALCIUM OXALATE CRYSTALS LARGE; COLOR, URINE YELLOW (YELLOW); GLUCOSE, URINE (UA) AUTO NEGATIVE (NEGATIVE); KETONE, URINE AUTO TRACE mg/dL (NEGATIVE); LEUKOCYTE ESTERASE, URINE AUTO NEGATIVE (NEGATIVE); MUCUS, URINE SMALL (NEGATIVE); NITRITE, URINE AUTO NEGATIVE (NEGATIVE); PROTEIN, URINE AUTO NEGATIVE (NEGATIVE); RBC, URINE AUTO 1 /HPF (0-3); SQUAMOUS EPITHELIAL CELL UR AU 2 /HPF (0-6); WBC, URINE AUTO 1 /HPF (0-3)
== END ==
LOC: M LAB REF 16:40
DX: N39.46 Mixed incontinence (principal); N39.42 Incontinence without sensory awareness; R39.11 Hesitancy of micturition
CPT/HCPCS: 81001

== ENCOUNTER → 2017-12-17 | Outpatient (REF) | payer OTHER ==
[2017-12-17 14:44] LABS: ALBUMIN 3.5 GM/DL (3.2-5.2); ALBUMIN/GLOBULIN RATIO 0.97 (1.00-1.93); ALKALINE PHOSPHATASE 82 U/L (45-117); ALT/SGPT 15 U/L (12-78); ANION GAP 8 MEQ/L (8-16); AST/SGOT 7 U/L (7-37); BILIRUBIN,TOTAL < 0.1 MG/DL (0.2-1.0); BLOOD UREA NITROGEN 9 MG/DL (7-18); CALCIUM LEVEL 8.4 MG/DL (8.5-10.1); CARBON DIOXIDE LEVEL 22 MEQ/L (21-32); CHLORIDE LEVEL 110 MEQ/L (98-107); CHOLESTEROL LEVEL 228 MG/DL (<200); CHOLESTEROL RISK RATIO 3.562 (<5); CREATININE FOR GFR 0.74 MG/DL (0.55-1.30); GLOMERULAR FILTRATION RATE > 60.0 (>58); GLUCOSE, FASTING 87 MG/DL (70-100); HDL CHOLESTEROL 64 MG/DL (>40); NON-HDL-C 164 MG/DL; POTASSIUM SERUM 4.1 MEQ/L (3.5-5.1); SODIUM LEVEL 140 MEQ/L (136-145); THYROID STIMULATING HORMONE 0.955 uIU/ML (0.358-3.740); TOTAL PROTEIN 7.1 GM/DL (6.4-8.2); TRIGLYCERIDES LEVEL 95 MG/DL (<150)
== END ==
LOC: M LAB REF 13:19
DX: E03.8 Other specified hypothyroidism (principal)
CPT/HCPCS: 84443

== ENCOUNTER 2018-02-14 19:02 | Emergency (ER) | payer OTHER, MEDICARE ==
[2018-02-14] MEDS: NS 1,000 ML IV (19:33)
[2018-02-14 19:49] LABS: BASO # 0.1 10^3/uL (0.0-0.2); BASO % 0.7 % (0.0-1.0); EOS # 0.1 10^3/uL (0.0-0.50); EOS % 1.8 % (0.0-3.0); HEMOGLOBIN 12.8 g/dl (12.0-15.5); IMMATURE GRANULOCYTE % 0.7 % (0-3.0); LYMPH # 2.6 10^3/uL (1.5-4.5); LYMPH % 34.5 % (24.0-44.0); MEAN CORPUSCULAR HEMOGLOBIN 31.9 pg (27.0-33.0); MEAN CORPUSCULAR HGB CONC 33.7 g/dl (32.0-36.5); MEAN CORPUSCULAR VOLUME 94.8 fl (80.0-96.0); MONO # 0.4 10^3/uL (0.0-0.8); MONO % 4.9 % (0.0-5.0); NEUTROPHILS # 4.4 10^3/uL (1.8-7.7); NEUTROPHILS % 57.4 % (36.0-66.0); PLATELET COUNT, AUTOMATED 253 10^3/uL (150-450); RED BLOOD COUNT 4.01 10^6/uL (4.00-5.40); RED CELL DISTRIBUTION WIDTH 13.2 % (11.5-14.5); WHITE BLOOD COUNT 7.6 10^3/uL (4.0-10.0)
[2018-02-14 20:09] LABS: ALBUMIN 3.6 GM/DL (3.2-5.2); ALKALINE PHOSPHATASE 87 U/L (45-117); ALT/SGPT 30 U/L (12-78); ANION GAP 9 MEQ/L (8-16); AST/SGOT 19 U/L (7-37); BILIRUBIN,DIRECT < 0.1 MG/DL (0.0-0.2); BILIRUBIN,TOTAL 0.2 MG/DL (0.2-1.0); BLOOD UREA NITROGEN 15 MG/DL (7-18); CALCIUM LEVEL 8.6 MG/DL (8.5-10.1); CARBON DIOXIDE LEVEL 23 MEQ/L (21-32); CHLORIDE LEVEL 107 MEQ/L (98-107); CPK CREATINE PHOSPHOKINASE 76 U/L (26-192); CREATININE FOR GFR 0.86 MG/DL (0.55-1.30); ETHYL ALCOHOL (ETHANOL) < 0.003 % (0.000-0.010); GLOMERULAR FILTRATION RATE > 60.0 (>58); GLUCOSE, FASTING 95 MG/DL (70-100); POTASSIUM SERUM 3.9 MEQ/L (3.5-5.1); SODIUM LEVEL 139 MEQ/L (136-145); TOTAL PROTEIN 7.2 GM/DL (6.4-8.2); TROPONIN I < 0.02 NG/ML (< 0.10)
[2018-02-14 20:10] LABS: ACETAMINOPHEN LEVEL < 2.0 UG/ML (10.0-30.0)
[2018-02-14 20:11] LABS: ESTIMATED AVERAGE GLUCOSE 103 MG/DL (60-110); HEMOGLOBIN A1c 5.2 %
[2018-02-14 20:14] LABS: CK-MB VALUE MASS < 1.0 NG/ML (<3.6); MB/CK RELATIVE INDEX 1.31 (< OR =4)
[2018-02-14 22:13] LABS: BEDSIDE GLUCOSE 151 MG/DL (70-105)
[2018-02-18 14:12] LABS: LAMOTRIGINE (LAMICTAL) 3.3 ug/mL (2.0-20.0)
== END 2018-02-14 22:34 | disposition home or self-care (01) ==
LOC: M ED 19:02
DX: R41.0 Disorientation, unspecified (principal); I45.19 Other right bundle-branch block; J44.9 Chronic obstructive pulmonary disease, unspecified; F17.200 Nicotine dependence, unspecified, uncomplicated; Z79.899 Other long term (current) drug therapy; Z88.6 Allergy status to analgesic agent; Z88.0 Allergy status to penicillin; Z88.8 Allergy status to other drugs, medicaments and biological substances
CPT/HCPCS: 70450

== ENCOUNTER 2018-06-11 19:22 | Emergency (ER) | payer MEDICARE ==
[2018-06-11 19:51] LABS: BEDSIDE GLUCOSE 75 MG/DL (70-105)
[2018-06-11] MEDS: NS 1,000 ML IV (19:54)
[2018-06-11 20:29] LABS: BASO # 0.1 10^3/uL (0.0-0.2); BASO % 0.7 % (0.0-1.0); EOS # 0.1 10^3/uL (0.0-0.50); EOS % 0.6 % (0.0-3.0); HEMATOCRIT 40.3 % (36.0-47.0); HEMOGLOBIN 13.3 g/dl (12.0-15.5); IMMATURE GRANULOCYTE % 0.6 % (0-3.0); LYMPH # 3.3 10^3/uL (1.5-4.5); LYMPH % 30.8 % (24.0-44.0); MEAN CORPUSCULAR HEMOGLOBIN 31.2 pg (27.0-33.0); MEAN CORPUSCULAR VOLUME 94.6 fl (80.0-96.0); MONO # 0.6 10^3/uL (0.0-0.8); MONO % 5.2 % (0.0-5.0); NEUTROPHILS # 6.7 10^3/uL (1.8-7.7); NEUTROPHILS % 62.1 % (36.0-66.0); PLATELET COUNT, AUTOMATED 222 10^3/uL (150-450); RED BLOOD COUNT 4.26 10^6/uL (4.00-5.40); RED CELL DISTRIBUTION WIDTH 13.5 % (11.5-14.5); WHITE BLOOD COUNT 10.8 10^3/uL (4.0-10.0)
[2018-06-11 20:36] LABS: ALBUMIN 3.5 GM/DL (3.2-5.2); ALBUMIN/GLOBULIN RATIO 0.83 (1.00-1.93); ALKALINE PHOSPHATASE 88 U/L (45-117); ALT/SGPT 36 U/L (12-78); AMPHETAMINES LEVEL URINE NEGATIVE (NEGATIVE); ANION GAP 11 MEQ/L (8-16); AST/SGOT 38 U/L (7-37); BARBITURATES URINE NEGATIVE (NEGATIVE); BENZODIAZEPINES URINE NEGATIVE (NEGATIVE); BILIRUBIN,DIRECT < 0.1 MG/DL (0.0-0.2); BILIRUBIN,TOTAL 0.2 MG/DL (0.2-1.0); BLOOD UREA NITROGEN 14 MG/DL (7-18); CALCIUM LEVEL 8.2 MG/DL (8.5-10.1); CANNABINOIDS URINE POSITIVE (NEGATIVE); CARBON DIOXIDE LEVEL 18 MEQ/L (21-32); CHLORIDE LEVEL 110 MEQ/L (98-107); COCAINE METABOLITE URINE NEGATIVE (NEGATIVE); CPK CREATINE PHOSPHOKINASE 62 U/L (26-192); CREATININE FOR GFR 1.03 MG/DL (0.55-1.30); ETHYL ALCOHOL (ETHANOL) < 0.003 % (0.000-0.010); GLOMERULAR FILTRATION RATE > 60.0 (>58); GLUCOSE, FASTING 77 MG/DL (70-100); METHADONE URINE NEGATIVE (NEGATIVE); OPIATES URINE NEGATIVE (NEGATIVE); PHENCYCLIDINE URINE NEGATIVE (NEGATIVE); SALICYLATE LEVEL 3.6 MG/DL (5.0-30.0); SODIUM LEVEL 139 MEQ/L (136-145); THYROID STIMULATING HORMONE 0.633 uIU/ML (0.358-3.740); TOTAL PROTEIN 7.7 GM/DL (6.4-8.2)
[2018-06-11 20:38] LABS: ACETAMINOPHEN LEVEL < 2.0 UG/ML (10.0-30.0)
== END 2018-06-11 23:30 | disposition home or self-care (01) ==
LOC: M ED 19:22
DX: F11.10 Opioid abuse, uncomplicated (principal); J45.909 Unspecified asthma, uncomplicated; R56.9 Unspecified convulsions; G43.909 Migraine, unspecified, not intractable, without status migrainosus; Z79.899 Other long term (current) drug therapy; Z79.890 Hormone replacement therapy; Z88.0 Allergy status to penicillin; Z88.1 Allergy status to other antibiotic agents; Z88.8 Allergy status to other drugs, medicaments and biological substances
CPT/HCPCS: 93005

== ENCOUNTER → 2018-08-20 | Outpatient (REF) | payer MEDICARE ==
[2018-08-21 16:48] LABS: ALBUMIN 3.5 GM/DL (3.2-5.2); ALBUMIN/GLOBULIN RATIO 0.95 (1.00-1.93); ALKALINE PHOSPHATASE 82 U/L (45-117); ALT/SGPT 14 U/L (12-78); ANION GAP 7 MEQ/L (8-16); AST/SGOT 11 U/L (7-37); BILIRUBIN,TOTAL 0.1 MG/DL (0.2-1.0); BLOOD UREA NITROGEN 7 MG/DL (7-18); CALCIUM LEVEL 8.9 MG/DL (8.5-10.1); CARBON DIOXIDE LEVEL 24 MEQ/L (21-32); CHLORIDE LEVEL 108 MEQ/L (98-107); CREATININE FOR GFR 0.73 MG/DL (0.55-1.30); GLOMERULAR FILTRATION RATE > 60.0 (>51); GLUCOSE, FASTING 82 MG/DL (70-100); POTASSIUM SERUM 4.1 MEQ/L (3.5-5.1); SODIUM LEVEL 139 MEQ/L (136-145); TOTAL PROTEIN 7.2 GM/DL (6.4-8.2)
== END ==
LOC: M LAB REF 15:48
DX: R39.11 Hesitancy of micturition (principal)
CPT/HCPCS: 80053

== ENCOUNTER → 2018-10-24 | Outpatient (REF) | payer MEDICARE ==
[~2018-10-24] MED LIST changes: +CARI1TAB7 PO; -CARI350T PO
[2018-10-24 17:41] LABS: BASO # 0.1 10^3/uL (0.0-0.2); BASO % 0.8 % (0.0-1.0); EOS % 0.3 % (0.0-3.0); HEMATOCRIT 41.6 % (36.0-47.0); LYMPH # 1.8 10^3/uL (1.5-4.5); LYMPH % 25.6 % (24.0-44.0); MEAN CORPUSCULAR HEMOGLOBIN 31.6 pg (27.0-33.0); MEAN CORPUSCULAR HGB CONC 33.7 g/dl (32.0-36.5); MEAN CORPUSCULAR VOLUME 93.9 fl (80.0-96.0); MONO # 0.5 10^3/uL (0.0-0.8); NEUTROPHILS # 4.7 10^3/uL (1.8-7.7); NEUTROPHILS % 65.9 % (36.0-66.0); PLATELET COUNT, AUTOMATED 220 10^3/uL (150-450); RED BLOOD COUNT 4.43 10^6/uL (4.00-5.40); WHITE BLOOD COUNT 7.2 10^3/uL (4.0-10.0)
== END ==
LOC: M LAB REF 16:41
PROVIDERS: ATTEND Family Medicine Addiction Medicine
DX: R23.3 Spontaneous ecchymoses (principal)

== ENCOUNTER 2018-11-24 21:12 | Emergency (ER) | payer MEDICARE ==
[~2018-11-24] VITALS: Ht 160 cm; Wt 66.8 kg
[2018-11-24] MEDS ORDERED: NS 1,000 ML IV ONE (22:45)
[2018-11-24] MEDS ORDERED: MORPHINE 2 MG/ML 1ML SYRINGE (J2270) IV ONE (22:45)
[2018-11-25] MEDS ORDERED: NORCO 5/325MG TABLET (BULK FOR ED) PO ONE (00:15)
[2018-11-25] MEDS ORDERED: NORC1TAB4 PO (00:18)
[2018-11-25] MEDS ORDERED: NS 1,000 ML IV ONE (00:30)
[2018-11-25 00:33] VITALS: BP 107/71
--- NOTE | 2018-11-25 07:48 | REP ---
Left ankle four views: I suspect there is soft tissue edema laterally. This should be confirmed clinically. I suspect there is a tibiotalar joint effusion. No fracture or dislocation are identified. Mineralization and joint spaces are normal. There are no calcifications or foreign bodies. Impression: Soft tissue edema and joint effusion. No fracture or dislocation. Electronically Signed by Glenn Maddox MD 11/25/2018 07:40 A
--- NOTE | 2018-11-25 07:50 | REP ---
Sacrum and coccyx three views: The coccyx is displaced anteriorly and overlaps with the next most superior sacral segment. Next most superior sacral segment is a angulated posteriorly. These may be post traumatic changes. Correlate with clinical findings. Sacroiliac articulations are unremarkable. There are numerous pelvic calcifications, likely phleboliths. Impression: Probable post-traumatic changes of the coccyx and next superior most sacral segment as described. Correlate with clinical findings. Electronically Signed by Glenn Maddox MD 11/25/2018 07:42 A
== END 2018-11-25 01:26 | disposition home or self-care (01) ==
LOC: M ED 21:12
DX: I95.1 Orthostatic hypotension (principal); S32.2XXA Fracture of coccyx, initial encounter for closed fracture; S93.402A Sprain of unspecified ligament of left ankle, initial encounter; W01.0XXA Fall on same level from slipping, tripping and stumbling without subsequent striking against object, initial encounter; Y92.89 Other specified places as the place of occurrence of the external cause; R91.8 Other nonspecific abnormal finding of lung field; J44.9 Chronic obstructive pulmonary disease, unspecified; F31.9 Bipolar disorder, unspecified; E03.9 Hypothyroidism, unspecified; F17.200 Nicotine dependence, unspecified, uncomplicated; Z88.8 Allergy status to other drugs, medicaments and biological substances; Z88.0 Allergy status to penicillin; Z88.1 Allergy status to other antibiotic agents
CPT/HCPCS: 72220; 73610; 96374; 99284; J2270

== ENCOUNTER 2019-01-03 12:08 | Observation (INO) | payer MEDICARE ==
[~2019-01-03] VITALS: Ht 160 cm; Wt 70.0 kg
[~2019-01-03 12:08] MED LIST changes: -AMIT25TA PO; -CELE1CAP4 PO; -GLUCAGON FOR INJ 1 MG VIAL (J1610) As Ordered ONE; -HYDR50TA70 PO; -ISOVUE-370 76% 125ML VIAL (Q9967 PER ML) As Ordered ONE; -LEVO100T54 PO; -LEVO75TA4 PO; -LINZ145C PO; -MOBI15TA PO; -MYRB25TA PO; -TOPI100T9 PO; -TOPI200T7 PO; -TRAZ1TAB14 PO; -VoLumen 0.1% SUSPENSION 450ML BOTTLE As Ordered ONE
[2019-01-03] MEDS ORDERED: AMIT25TA PO (12:47)
[2019-01-03] MEDS ORDERED: TOPI100T9 PO (12:47)
[2019-01-03] MEDS ORDERED: MYRB25TA PO (12:47)
[2019-01-03 15:23] LABS: BASO # 0.1 10^3/uL (0.0-0.2); BASO % 0.7 % (0.0-1.0); EOS % 0.4 % (0.0-3.0); HEMOGLOBIN 14.3 g/dl (12.0-15.5); LYMPH # 2.8 10^3/uL (1.5-4.5); MEAN CORPUSCULAR HEMOGLOBIN 31.5 pg (27.0-33.0); MEAN CORPUSCULAR HGB CONC 32.5 g/dl (32.0-36.5); MEAN CORPUSCULAR VOLUME 96.9 fl (80.0-96.0); MONO # 0.6 10^3/uL (0.0-0.8); MONO % 5.4 % (0.0-5.0); NEUTROPHILS # 6.7 10^3/uL (1.8-7.7); PLATELET COUNT, AUTOMATED 286 10^3/uL (150-450); RED BLOOD COUNT 4.54 10^6/uL (4.00-5.40); WHITE BLOOD COUNT 10.2 10^3/uL (4.0-10.0)
[2019-01-03] MEDS ORDERED: NS 1,000 ML IV ONE ×2 (15:30→18:00)
[2019-01-03 15:41] LABS: ALBUMIN 3.5 GM/DL (3.2-5.2); ALT/SGPT 15 U/L (12-78); BILIRUBIN,DIRECT < 0.1 MG/DL (0.0-0.2); BILIRUBIN,TOTAL 0.2 MG/DL (0.2-1.0); BLOOD UREA NITROGEN 9 MG/DL (7-18); CALCIUM LEVEL 9.1 MG/DL (8.5-10.1); CARBON DIOXIDE LEVEL 22 MEQ/L (21-32); CHLORIDE LEVEL 106 MEQ/L (98-107); CK-MB VALUE MASS < 1.0 NG/ML (<3.6); CPK CREATINE PHOSPHOKINASE 50 U/L (26-192); CREATININE FOR GFR 0.64 MG/DL (0.55-1.30); GLOMERULAR FILTRATION RATE > 60.0 (>51); GLUCOSE, FASTING 45 MG/DL (70-100); POTASSIUM SERUM 3.7 MEQ/L (3.5-5.1); SODIUM LEVEL 138 MEQ/L (136-145); THYROID STIMULATING HORMONE 0.047 uIU/ML (0.358-3.740); TOTAL PROTEIN 7.1 GM/DL (6.4-8.2); TROPONIN I < 0.02 NG/ML (< 0.10)
--- NOTE | 2019-01-03 15:41 | REP ---
CT Head without contrast HISTORY: Altered mental status COMPARISON: 02/14/2018 There is no intraparenchymal hemorrhage, acute infarct, mass or midline shift. The ventricular system is normal in appearance. There is no extra cerebral collection. There is no fracture. The visualized sinuses are clear. IMPRESSION: There is no intracranial lesion. Electronically Signed by Sanchez Ashraf MD 01/03/2019 03:33 P
[2019-01-03 15:43] LABS: ETHYL ALCOHOL (ETHANOL) < 0.003 % (0.000-0.010)
[2019-01-03] MEDS ORDERED: DEXTROSE 50% 50 ML SYRINGE IV STA (16:08)
[2019-01-03 16:25] LABS: AMPHETAMINES LEVEL URINE NEGATIVE (NEGATIVE); BARBITURATES URINE NEGATIVE (NEGATIVE); BENZODIAZEPINES URINE NEGATIVE (NEGATIVE); CANNABINOIDS URINE POSITIVE (NEGATIVE); COCAINE METABOLITE URINE NEGATIVE (NEGATIVE); METHADONE URINE NEGATIVE (NEGATIVE); OPIATES URINE NEGATIVE (NEGATIVE); PHENCYCLIDINE URINE NEGATIVE (NEGATIVE)
[2019-01-03] MEDS ORDERED: TRAZ300T2 PO (18:22)
[2019-01-03] MEDS ORDERED: XANA1TAB2 PO (18:22)
[2019-01-03] MEDS ORDERED: LEVO100T54 PO (18:22)
[2019-01-03] MEDS ORDERED: HYDR50TA70 PO (18:22)
[2019-01-03] MEDS ORDERED: TOPI200T7 PO (18:22)
[2019-01-03] MEDS ORDERED: MOBI15TA PO (18:22)
[2019-01-03] MEDS ORDERED: CELE1CAP4 PO (18:22)
[2019-01-03] MEDS ORDERED: VENTAER INH (18:22)
[2019-01-03] MEDS ORDERED: LINZ145C PO (18:22)
--- NOTE | 2019-01-03 19:16 | REP ---
CHEST, TWO VIEWS: COMPARISON: 08/25/2015 There is no evidence of acute infiltrate. No pleural effusion is seen. The heart is normal in size. The mediastinal silhouette is unremarkable. The visualized osseous structures are intact. IMPRESSION: No acute pulmonary disease. Electronically Signed by Glenn Nevarez MD 01/03/2019 08:05 P
[2019-01-03] MEDS: QUEtiapine FUMARATE 100 MG TAB PO SCH (21:00)
[2019-01-03] MEDS: QUEtiapine FUMARATE 200 MG TAB PO SCH (21:00)
[2019-01-03] MEDS ORDERED: ALPRAZolam 0.5 MG TAB PO PRN (21:00)
[2019-01-03] MEDS: traZODone 100 MG TAB PO SCH (21:00)
[2019-01-03] MEDS ORDERED: hydrOXYzine 50 MG TAB PO ONE (21:00)
[2019-01-03] MEDS: ASENAPINE 5 MG SUBLINGUAL TAB (SAPHRIS) SL SCH (21:00)
[2019-01-03] MEDS ORDERED: lamoTRIgine 100MG TAB PO ONE (21:00)
[2019-01-03] MEDS ORDERED: ENTER DRUG NAME HERE (PATIENT'S OWN MED) PO SCH ×2 (21:15)
[2019-01-03 21:41] LABS: FREE T4 1.31 NG/DL (0.76-1.46)
[2019-01-03 21:45] LABS: TOTAL T3 72.8 NG/DL (60.0-181.0)
[2019-01-03] MEDS ORDERED: IPRATROPIUM 0.5MG/ALBUTEROL 2.5MG INH SOL UD 3ML (DUONEB)(J7620) NEB PRN (21:45)
--- NOTE | 2019-01-03 22:53 | HPE ---
DATE OF ADMISSION: 01/03/2019 CHIEF COMPLAINT: Dizziness, near fall, possible syncope. HISTORY OF THE PRESENT ILLNESS: This is a 48-year-old female with past medical history of multiple psychiatric diagnoses, including anxiety, depression, bipolar disorder, post-traumatic stress disorder (PTSD), requiring multiple prior mental health hospitalizations with a history of prior overdose, history of seizures, followed by Dr. Hinkle, history of esophageal strictures requiring previous dilatations by esophagogastroduodenoscopy (EGD), history of chronic obstructive pulmonary disease (COPD) with prior smoking, who presents with chief complaint of several day history of dizziness and near falls. She does note that in her last several doctor's visits she has had low blood pressures to the 120s, which she thought was low. She says she has had ongoing issues with dizziness, but in the last several days, she has felt quite dizzy and has had several episodes of near fall. She is unsure if she actually syncopized. She was not a very good historian. She denies any chest pain. She does report that she has chronic diarrhea that is unchanged over the last year. She does not really report any change in her oral intake. She is on quite a bit of psychiatric medications; however, she reports that none of them have really been recently changed. She denies any cough or fevers. She was noted in the emergency room to be hypotensive to the 80s over 50s and given her symptoms of dizziness and near falls, she was admitted for further evaluation of this and evaluation of her low blood pressures. PAST MEDICAL HISTORY: As noted above in history of the present illness. PAST SURGICAL HISTORY: Patient has had a history of section, fundoplication, cholecystectomy, and a dilation and curettage (D and C). HOME MEDICATIONS: - albuterol two puffs four times a day as needed for shortness of breath - amitriptyline 25 mg by mouth nightly - prazosin 4 mg by mouth daily - sumatriptan injection as needed for migraine - Xanax 1 mg by mouth three times a day as needed for anxiety - Saphris 5 mg sublingual twice a day - carisoprodol 350 mg three times a day as needed for spasm - celecoxib 200 mg by mouth daily - vitamin D 1000 units by mouth twice a day - hydroxyzine 50 mg by mouth daily - Lamictal 100 mg by mouth twice a day - Synthroid 100 mcg by mouth daily - Linzess 145 mcg by mouth daily - Mobic 15 mg by mouth daily - Myrbetriq 25 mg by mouth daily - Seroquel 100 mg by mouth nightly - Seroquel 400 mg by mouth nightly - Topamax 200 mg by mouth twice a day - trazodone 300 mg by mouth nightly - venlafaxine 150 mg by mouth twice a day ALLERGIES: She is allergic to ACETAMINOPHEN, ASPIRIN, IBUPROFEN, PENICILLINS, and QUINOLONES. SOCIAL HISTORY: She is , her has . She currently has a boyfriend. She smokes half a pack a day since she has been 12 years old. She is thinking about quitting. No alcohol or drugs. FAMILY HISTORY: She is adopted, and she does not know her family history. PHYSICAL EXAM: On exam, her blood pressure currently is 82/57, pulse of 80, respirations 20, saturating 96% on room air. She is afebrile to 97.8. In general, she is in no acute distress, a pleasant female. HEENT: Oropharynx clear. Cardiovascular: Regular rate and rhythm. No murmurs, rubs, or gallops. Lungs: Clear to auscultation bilaterally. Abdomen: Soft, mildly tender throughout, nondistended. Extremities: No clubbing, cyanosis, edema. Neurologic: She is alert and oriented times three, follows simple commands. No focal neurologic deficits. Psychiatric: Mood is stable. LABS: Reveal CBC with a white count of 10.2, hemoglobin of 14, platelets of 286. Chemistry shows a creatinine of 0.64. TSH is low at 0.047. Troponin is negative. IMAGING: Chest x-ray shows no acute disease. CT head shows no intracranial lesion, and a CT enterography that was done by her GI doctor today shows post-cholecystectomy, benign adrenal adenoma left adrenal gland, air and fluid producing mild distention of the stomach, otherwise negative CT enterography. ASSESSMENT AND PLAN: This is a 48-year-old female with multiple psychiatric diagnoses, including bipolar disorder, depression, anxiety, PTSD with multiple prior psychiatric hospitalizations, seizure disorder, COPD, history of esophageal strictures and irritable bowel syndrome, who presents with chief complaint of dizziness and near falls, found to have hypotension. PROBLEMS: 1. Hypotension, likely causing her symptoms of dizziness and near falls. I believe her hypotension is likely medication induced. Patient is on a number of high dose psychiatric medications that can cause hypotension. I believe the cause of her hypotension is likely polypharmacy. For now, I have held her home prazosin which the patient reports she takes for PTSD and her amitriptyline which patient is not quite sure why she takes, as both of these can be common culprits for hypotension. Tomorrow, her psychiatrist should be called regarding all of her medications and to make modifications, which will hopefully improve her symptoms. Her psychiatrist is Dr. Beltran. I am also going to have orthostatics checked. Also, I think we need to further evaluate her thyroid given that she has got a significantly low TSH and whether she is currently hyperthyroid, which may be exacerbating her symptoms of dizziness. I have ordered a T4 and a T3 for the morning. 2. Possible syncope. Patient is not quite sure if she syncopized or loss of consciousness and neither is her partner who is at bedside. Therefore, I will go ahead and also complete a full syncope workup and place the patient on telemetry and check an echo. She already had a CT head done in the emergency room that was unremarkable. Her troponin was negative. We will place her on telemetry. 3. History of multiple psychiatric disorders. For now, I am continuing all her psychiatric medicines except for the amitriptyline and the prazosin as described above. Dr. Beltran should be called tomorrow. 4. History of seizures. The patient apparently follows with Dr. Hinkle in [place] and is on Topamax and Lamictal, which I am continuing. 5. History of hypothyroidism. I am holding her home Synthroid given her TSH is quite low. We will check a T3 and T4 and if she is hyperthyroid, perhaps this could be worsening her symptoms. 6. Smoking. Patient has a history of tobacco use and is interested in quitting. Smoking cessation counseling was provided and a nicotine patch is being given to the patient. Her home inhalers are being continued for a history of COPD. 7. History of migraines. Stable. 8. Likely irritable bowel syndrome. Patient reports she has chronic diarrhea, and she follows with a manufacturing support engineer name Mallory; she does not know the last name. She had a CT enterography today. She is on Linzess, which we can continue here. 9. Deep vein thrombosis (DVT) prophylaxis. We will put the patient on sequential compression device (SCDs).
[2019-01-03] MEDS: VITAMIN D 1,000 INTERNATIONAL UNITS TABLET PO SCH (23:36)
[2019-01-03] MEDS: VENLAFAXINE **XR** 75MG CAPSULE PO SCH (23:36)
[2019-01-03] MEDS: TOPIRAMATE (TopAMAX) 100 MG TAB PO SCH (23:37)
[2019-01-04 07:09] LABS: HEMATOCRIT 41.1 % (36.0-47.0); HEMOGLOBIN 13.3 g/dl (12.0-15.5); MEAN CORPUSCULAR HEMOGLOBIN 31.4 pg (27.0-33.0); MEAN CORPUSCULAR HGB CONC 32.4 g/dl (32.0-36.5); MEAN CORPUSCULAR VOLUME 97.2 fl (80.0-96.0); PLATELET COUNT, AUTOMATED 215 10^3/uL (150-450); RED BLOOD COUNT 4.23 10^6/uL (4.00-5.40); WHITE BLOOD COUNT 6.8 10^3/uL (4.0-10.0)
--- NOTE | 2019-01-04 07:16 | ECGEPIP ---
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
[2019-01-04 07:35] LABS: BLOOD UREA NITROGEN 7 MG/DL (7-18); CALCIUM LEVEL 8.2 MG/DL (8.5-10.1); CARBON DIOXIDE LEVEL 19 MEQ/L (21-32); CHLORIDE LEVEL 117 MEQ/L (98-107); CREATININE FOR GFR 0.54 MG/DL (0.55-1.30); GLOMERULAR FILTRATION RATE > 60.0 (>51); GLUCOSE, FASTING 76 MG/DL (70-100); SODIUM LEVEL 144 MEQ/L (136-145)
[2019-01-04 08:08] LABS: CK-MB VALUE MASS < 1.0 NG/ML (<3.6); CPK CREATINE PHOSPHOKINASE 67 U/L (26-192); MB/CK RELATIVE INDEX 1.49 (< OR =4); TROPONIN I < 0.02 NG/ML (< 0.10)
[2019-01-04] MEDS ORDERED: CelecoXIB (CeleBREX) 100 MG CAP PO SCH (09:00)
[2019-01-04] MEDS ORDERED: MELOXICAM (MOBIC) 7.5 MG TAB PO SCH (09:00)
[2019-01-04] MEDS ORDERED: LEVOTHYROXINE 100MCG TABLET (0.1MG) PO SCH (09:00)
[2019-01-04] MEDS: NICOTINE 21MG/24HR 1 EA TRANSDERMAL TD SCH (09:22)
[2019-01-04] MEDS: VENLAFAXINE **XR** 75MG CAPSULE PO SCH ×2 (09:22→20:24)
[2019-01-04] MEDS: TOPIRAMATE (TopAMAX) 100 MG TAB PO SCH ×2 (09:22→20:24)
[2019-01-04] MEDS: VITAMIN D 1,000 INTERNATIONAL UNITS TABLET PO SCH ×2 (09:23→20:24)
[2019-01-04] MEDS: HEPARIN SOD (PORCINE) 5000 UNITS/ML VIAL SQ SCH ×2 (09:24→20:24)
[2019-01-04] MEDS: ASENAPINE 5 MG SUBLINGUAL TAB (SAPHRIS) SL SCH ×2 (09:24→20:24)
[2019-01-04 16:05] VITALS: BP 129/82
[2019-01-04 18:00] VITALS: BP 155/98
[2019-01-04] MEDS: CARISOPRODOL 350 MG TAB PO PRN (19:28)
[2019-01-04] MEDS ORDERED: oxyCODONE 5MG TAB PO ONE (20:15)
[2019-01-04] MEDS: traZODone 100 MG TAB PO SCH (20:24)
[2019-01-04] MEDS: QUEtiapine FUMARATE 100 MG TAB PO SCH (20:24)
[2019-01-04] MEDS: QUEtiapine FUMARATE 200 MG TAB PO SCH (20:24)
--- NOTE | 2019-01-04 21:03 | IPN ---
DATE: 01/04/2019 The patient is seen and examined. No acute events overnight. Feeling comfortable. Denies any lightheadedness, chest pain, pressure or discomfort. Tolerating oral. VITAL SIGNS: Temperature 97.6, pulse 76, respirations 17, blood pressure 129/82, pulse oximetry 100% on room air. LABORATORY DATA: WBC 6.8, hemoglobin and hematocrit 13.3/41.1, platelets 215. Chemistry: Sodium 144, potassium 5.0, chloride 117, bicarbonate 19, BUN 7, creatinine 0.54. Cardiac enzymes negative times two. PHYSICAL EXAMINATION: GENERAL: The a is alert, comfortable, and in no acute distress. HEENT: Normocephalic, atraumatic. PULMONARY: Bilaterally clear. CARDIAC: Regular. S1, S2. ABDOMEN: Soft, nontender. Positive bowel sounds. EXTREMITIES: No clubbing, cyanosis or edema. NEUROLOGIC: No focal deficits. ASSESSMENT AND PLAN: This is a 48-year-old female patient with underlying medical history of anxiety, depression, bipolar disorder, posttraumatic stress disorder (PTSD) requiring mental health hospitalizations and prior history of overdose, history of seizure, esophageal stricture requiring dilatation, chronic obstructive pulmonary disease (COPD), smoking, presented with dizziness and near syncopal episode and found to have hypotension in the emergency department. 1. Hypotension, likely resulting in symptoms of near syncope and dizziness. Possible medication induced. IV fluids have been given. Serial cardiac enzymes have been negative. Echocardiogram has been ordered. Holding amitriptyline and Prozac. Psychiatric consulted for optimization of psychiatric medications. The patient sees Dr. Beltran. Psychiatrist, Dr. Onofre, has been consulted. 2. Near syncope. Echocardiogram has been ordered. Telemetry monitoring. Likely secondary to hypotension. Orthostatic vital signs. Adjust medications. 3. History of anxiety, depression, bipolar disorder, posttraumatic stress disorder (PTSD), prior history of overdose. Continue home medications with the exception of amitriptyline and Prozac. Further adjustments as per psychiatry. Denies any suicide attempts, overdose. The patient does not appear to be depressed at this time. 4. History of seizures. Continue current medications. We will monitor closely. 5. History of hypothyroidism. Repeat thyroid profile. Synthroid dose has been reduced. Will need to followup with outpatient provider for repeat thyroid profile. 6. Smoking. Counseling provided. Nicotine patch. 7. History of chronic obstructive pulmonary disease (COPD). Currently does not have any wheeze. We will monitor. Nebulizer treatment as needed. 8. History of migraines. Currently stable. 9. Likely history of irritable bowel syndrome. Has chronic diarrhea. Followup with head tennis coach as an outpatient. 10. Deep vein thrombosis (DVT) prophylaxis. Heparin subcutaneously. DISPOSITION: Telemetry monitoring, echocardiogram, psychiatric consultation. Likely discharge in the next 24 to 48 hours.
[2019-01-04 22:00] VITALS: BP 138/86
[2019-01-05 02:00] VITALS: BP 122/92
[2019-01-05] MEDS: LEVOTHYROXINE 75MCG TABLET (0.075MG) PO SCH (05:15)
[2019-01-05 06:00] VITALS: BP 147/92
[2019-01-05 06:33] LABS: HEMATOCRIT 40.6 % (36.0-47.0); HEMOGLOBIN 13.2 g/dl (12.0-15.5); MEAN CORPUSCULAR HEMOGLOBIN 31.8 pg (27.0-33.0); MEAN CORPUSCULAR HGB CONC 32.5 g/dl (32.0-36.5); MEAN CORPUSCULAR VOLUME 97.8 fl (80.0-96.0); PLATELET COUNT, AUTOMATED 228 10^3/uL (150-450); RED BLOOD COUNT 4.15 10^6/uL (4.00-5.40); WHITE BLOOD COUNT 5.9 10^3/uL (4.0-10.0)
[2019-01-05 07:12] LABS: BLOOD UREA NITROGEN 11 MG/DL (7-18); CALCIUM LEVEL 8.7 MG/DL (8.5-10.1); CARBON DIOXIDE LEVEL 21 MEQ/L (21-32); CHLORIDE LEVEL 114 MEQ/L (98-107); CREATININE FOR GFR 0.63 MG/DL (0.55-1.30); FREE THYROXINE INDEX 1.7 % (1.3-4.8); GLOMERULAR FILTRATION RATE > 60.0 (>51); GLUCOSE, FASTING 78 MG/DL (70-100); POTASSIUM SERUM 4.1 MEQ/L (3.5-5.1); SODIUM LEVEL 142 MEQ/L (136-145); T UPTAKE 30 % (30-39); THYROXINE (T4) 5.5 UG/DL (4.5-12.0)
[2019-01-05] MEDS: HEPARIN SOD (PORCINE) 5000 UNITS/ML VIAL SQ SCH ×2 (09:21→20:17)
[2019-01-05] MEDS: NICOTINE 21MG/24HR 1 EA TRANSDERMAL TD SCH (09:21)
[2019-01-05] MEDS: VENLAFAXINE **XR** 75MG CAPSULE PO SCH ×2 (09:28→20:14)
[2019-01-05] MEDS: VITAMIN D 1,000 INTERNATIONAL UNITS TABLET PO SCH ×2 (09:28→20:13)
[2019-01-05] MEDS: TOPIRAMATE (TopAMAX) 100 MG TAB PO SCH ×2 (09:28→20:13)
[2019-01-05] MEDS: ASENAPINE 5 MG SUBLINGUAL TAB (SAPHRIS) SL SCH ×2 (09:29→20:14)
[2019-01-05] MEDS: CARISOPRODOL 350 MG TAB PO PRN ×2 (09:41→20:13)
[2019-01-05 10:00] VITALS: BP 131/86
[2019-01-05 14:00] VITALS: BP 122/75
[2019-01-05] MEDS: oxyCODONE 5MG TAB PO PRN (14:46)
[2019-01-05] MEDS ORDERED: ONDANSETRON 4MG/2ML VIAL (J2405) IV PRN (15:00)
--- NOTE | 2019-01-05 15:23 | IPNPDOC ---
Text Note Date of Service The patient was seen on 01/05/19. NOTE The patient is seen and examined. No acute events overnight. Feeling comfortable. Denies any lightheadedness, chest pain, pressure or discomfort. Tolerating oral. report tail bone pain worsen that is chronic. PHYSICAL EXAMINATION: GENERAL: The a is alert, comfortable, and in no acute distress. HEENT: Normocephalic, atraumatic. PULMONARY: Bilaterally clear. CARDIAC: Regular. S1, S2. ABDOMEN: Soft, nontender. Positive bowel sounds. EXTREMITIES: No clubbing, cyanosis or edema. NEUROLOGIC: No focal deficits. ASSESSMENT AND PLAN: This is a 48-year-old female patient with underlying medical history of anxiety, depression, bipolar disorder, posttraumatic stress disorder (PTSD) requiring mental health hospitalizations and prior history of overdose, history of seizure, esophageal stricture requiring dilatation, chronic obstructive pulmonary disease (COPD), smoking, presented with dizziness and near syncopal episode and found to have hypotension in the emergency department. 1. Hypotension, likely resulting in symptoms of near syncope and dizziness. Possible medication induced. IV fluids have been given. Serial cardiac enzymes have been negative. Echocardiogram. Hold Prozac, hydroxyzine, decrease seroquel and trazodone per pschy. Psychiatric con sulted for optimization of psychiatric medications. The patient sees Dr. Beltran. Psychiatrist, Dr. Onofre, has been consulted. 2. Near syncope. Echocardiogram has been ordered. Telemetry monitoring. Likely secondary to hypotension. Orthostatic vital signs. medication adjusted. 3. History of anxiety, depression, bipolar disorder, posttraumatic stress disorder (PTSD), prior history of overdose. Continue current medications. Further adjustments as per psychiatry. adjusted as above. trazodone reduced to 150mg QHS, seroquel requced to 400mg QHS. hold prozac and hydroxyzine Denies any suicide attempts, overdose. The patient does not appear to be depressed at this time. 4. History of seizures. Continue current medications. We will monitor closely. 5. History of hypothyroidism. Repeat thyroid profile appreciated. Synthroid dose has been reduced. Will need to followup with outpatient provider for repeat thyroid profile. 6. Smoking. Counseling provided. Nicotine patch. 7. History of chronic obstructive pulmonary disease (COPD). Currently does not have any wheeze. We will monitor. Nebulizer treatment as needed. 8. History of migraines. Currently stable. 9. Likely history of irritable bowel syndrome. Has chronic diarrhea. Followup with [employer] as an outpatient. 10. sacral pain. as per patient chronic from previous fall. xr ordered. pain medication 11. Deep vein thrombosis (DVT) prophylaxis. Heparin subcutaneously. DISPOSITION: Telemetry monitoring, echocardiogram, psychiatric consultation. Likely discharge in the next 24 to 48 hours. VS,Fishbone, I+O VS, Fishbone, I+O Laboratory Tests 01/05/19 06:17 Red Blood Count 4.15, Mean Corpuscular Volume 97.8 H, Mean Corpuscular Hemo globin 31.8, Mean Corpuscular Hemoglobin Concent 32.5, Red Cell Distribution Width 14.5, Calcium Level 8.7 Vital Signs Date Time Temp Pulse Resp B/P (MAP) Pulse Ox O2 Delivery O2 Flow Rate FiO2 01/05/19 14:46 18 01/05/19 06:00 97.7 77 147/92 (110) 97 01/04/19 13:55 Room Air I&O- Last 24 Hours up to 6 AM 01/05/19 06:00 Intake Total 960 ml Output Total 1400 ml Balance -440 ml JONATHAN LAL MD Jan 05, 2019 15:23
[2019-01-05 18:00] VITALS: BP 138/82
[2019-01-05] MEDS: QUEtiapine FUMARATE 200 MG TAB PO SCH (20:14)
[2019-01-05] MEDS ORDERED: AMITRIPTYLINE 25 MG TAB PO SCH (21:00)
[2019-01-05] MEDS ORDERED: traZODone 50 MG TAB PO SCH (21:00)
[2019-01-05 22:00] VITALS: BP 116/71
[2019-01-06] MEDS: oxyCODONE 5MG TAB PO PRN ×2 (01:34→08:38)
[2019-01-06 02:00] VITALS: BP 121/77
[2019-01-06] MEDS: LEVOTHYROXINE 75MCG TABLET (0.075MG) PO SCH (05:33)
[2019-01-06 06:00] VITALS: BP 114/69
[2019-01-06 06:08] LABS: HEMATOCRIT 42.8 % (36.0-47.0); HEMOGLOBIN 14.4 g/dl (12.0-15.5); MEAN CORPUSCULAR HEMOGLOBIN 31.8 pg (27.0-33.0); MEAN CORPUSCULAR HGB CONC 33.6 g/dl (32.0-36.5); MEAN CORPUSCULAR VOLUME 94.5 fl (80.0-96.0); PLATELET COUNT, AUTOMATED 250 10^3/uL (150-450); RED BLOOD COUNT 4.53 10^6/uL (4.00-5.40); WHITE BLOOD COUNT 9.7 10^3/uL (4.0-10.0)
[2019-01-06 06:37] LABS: BLOOD UREA NITROGEN 13 MG/DL (7-18); CALCIUM LEVEL 8.9 MG/DL (8.5-10.1); CARBON DIOXIDE LEVEL 19 MEQ/L (21-32); CHLORIDE LEVEL 112 MEQ/L (98-107); CREATININE FOR GFR 0.58 MG/DL (0.55-1.30); GLOMERULAR FILTRATION RATE > 60.0 (>51); GLUCOSE, FASTING 88 MG/DL (70-100); MAGNESIUM LEVEL 1.9 MG/DL (1.8-2.4); SODIUM LEVEL 139 MEQ/L (136-145)
--- NOTE | 2019-01-06 06:59 | REP ---
SACRUM AND COCCYX: Three views of the sacrum and coccyx are performed. On the lateral view, there is posterior angulation of one of the most inferior coccygeal segments with anterior displacement of the most inferior coccygeal segment. The appearance is unchanged when compared with the prior study of 11/24/2018. No new findings are seen when compared to that prior study. Electronically Signed by Glenn Nevarez MD 01/06/2019 09:17 A
--- NOTE | 2019-01-06 07:03 | ECHO ---
DATE OF STUDY: 01/05/2019 REFERRING PHYSICIAN: Dr. Akanksha Campbell INDICATION: Syncope. HEIGHT: 5 feet 3 inches WEIGHT: 154 pounds 5 ounces 2-D MEASUREMENTS: Aortic root: 3.3 cm Proximal ascending aorta: 3.0 cm Left atrium: 3.3 cm LV diastole: 4.0 cm LV systole: 2.35 cm Ventricular septum: 1.09 cm LV posterior wall: 1.08 cm Inferior vena cava: 1.5 cm DOPPLER MEASUREMENTS: Aortic valve velocity: 125 cm/sec LVOT velocity: 102 cm/sec LVOT VTI: 23.1 cm Mitral E velocity: 66.9 cm/sec Mitral V velocity: 92.6 cm/sec Mitral deceleration time: 275 ms Very mild tricuspid regurgitation Estimated right ventricular systolic pressure 23-28 mmHg assuming a right atrial pressure of 5-10 mmHg Pulmonary artery systolic pressure 28 mmHg MITRAL ANNULAR TISSUE DOPPLER: E prime lateral: 7.4 cm/sec E prime septal: 7.0 cm/sec DESCRIPTION: The rhythm was sinus. Image quality was good. No pericardial effusion. This was a 2-D, M-mode, color flow Doppler and pulse wave Doppler examination and included mitral annular tissue Doppler. CONCLUSIONS: 1. Normal left ventricle internal dimensions and wall thickness. Normal regional LV wall motion and wall thickening. Normal LV systolic function. LVEF 65% by visual estimate. Grade 1 LV diastolic function. 2. Mild aortic valve sclerosis of a 3-cuspid aortic valve. No aortic regurgitation. 3. Otherwise normal echocardiogram-Doppler findings. MTDD
[2019-01-06] MEDS: VENLAFAXINE **XR** 75MG CAPSULE PO SCH (08:37)
[2019-01-06] MEDS: CARISOPRODOL 350 MG TAB PO PRN (08:37)
[2019-01-06] MEDS: VITAMIN D 1,000 INTERNATIONAL UNITS TABLET PO SCH (08:37)
[2019-01-06] MEDS: TOPIRAMATE (TopAMAX) 100 MG TAB PO SCH (08:37)
[2019-01-06] MEDS: ASENAPINE 5 MG SUBLINGUAL TAB (SAPHRIS) SL SCH (08:37)
[2019-01-06] MEDS: HEPARIN SOD (PORCINE) 5000 UNITS/ML VIAL SQ SCH (08:38)
[2019-01-06] MEDS: NICOTINE 21MG/24HR 1 EA TRANSDERMAL TD SCH (08:38)
--- NOTE | 2019-01-06 09:58 | MHCR ---
DATE OF CONSULTATION: 01/05/2019 CHIEF COMPLAINT: She has been dizzy. SUBJECTIVE: She is [id number]. She has several medical difficulties, and has a history of seizures, esophageal strictures, chronic obstructive pulmonary disease (COPD). Also has several psychiatric difficulties, has been diagnosed with bipolar disorder, posttraumatic distress disorder, has required multiple hospitalizations in the past, was last seen at inpatient in May 2017. I had seen her at that time on consultation service. I have been asked to see her by the hospitalist, Dr. Campbell, as patient was admitted as she felt dizzy, nearly feel, there are concerns regarding possible syncope. She is on various medications, and I was asked to make an assessment regarding the medicines she uses for her psychiatric conditions, and to see if any of them could contribute to her symptoms of dizziness, and if changes could be made. Patient says she noticed that she gets dizzy several times a week, including on changes of posture, for example when lying down and she sits up, or standing up from a standing position, and that this does lead to sense of dizziness quite often. She was due for imaging regarding gastrointestinal issues and she come to the hospital, and had felt dizzy just prior to that, and they went ahead with it. It was after that, that she was evaluated for the dizziness, and therefore admitted here for further observation. Medications at the moment include albuterol, amitriptyline 25 mg at night, prazosin 4 mg daily. Says has been on the prazosin for a while, has found it useful, and says has noted that she tends to get dizzy after taking it on occasions. She is also on Xanax at 1 mg three times a day as needed for anxiety, Saphris 5 mg sublingual twice a day, carisoprodol 350 mg three times a day as needed for spasms. She also indicates was prescribed hydroxyzine but has not started it yet, at 50 mg daily. She is also on Lamictal at 100 mg twice a day, Synthroid 100 mcg daily, Linzess 145 mcg daily, Mobic 15 mg daily, Myrbetriq 25 mg daily, Seroquel 500 mg at night, Topamax 200 mg twice a day, trazodone 300 mg at night, venlafaxine 150 mg twice a day, and apparently at some point, was going to be started on Prozac for some reason, but apparently that has been held back. She says she has been doing okay emotionally lately, though had been grieving for her grandfather, who in [place] a couple of weeks ago, says she was unable to go, and was not able to get a hold of her mother for a little while either. Says stayed in bed for a few days after that. Says had vague suicidal thoughts, but no plans at the time. Denies any such thoughts or plans at present. Says has had spoken with her counselor Fernandez, who she sees weekly, and that had tended to help. She denies any suicidal thoughts or intents at present. Says moods are improved. No homicidal ideas or intents. PAST PSYCHIATRIC HISTORY: As indicated above, has had previous inpatient hospitalizations. Is seen as an outpatient by Dr. Beltran, sees him once a month, and her counselor Fernandez every week. MENTAL STATUS EXAMINATION: She is neat, she is cooperative, she is sitting up in bed, she displays no agitation. No psychomotor retardation. She is coherent. Speech normal in amount and rate. No abnormal movements noted. Affect is fairly broad. She denies any suicidal thoughts or intents. No homicidal ideas or intents, does not appear to be internally preoccupied. No evidence of psychosis. No fluctuation of consciousness. She is alert and oriented. Intellect is average. Judgment good. Insight is fair to good. ASSESSMENT: Bipolar disorder by history. Posttraumatic stress disorder. There is no evidence of any hypomania nor natividad, she denies any suicidal or homicidal ideas or intents, no evidence for any psychosis. The dizziness may be secondary to the various medications she is on, including the psychotropics. Among them, trazodone, Saphris, and Seroquel may well be culprits. Reducing some of them, without necessarily compromising her clinical condition, may be beneficial. I would suggest the indications for the other medications are reassessed, and stream lined. RECOMMENDATIONS: Decrease the trazodone to 150 mg at night (she is currently on 300 mg at night). Decrease Seroquel to 400 mg at night (currently on 500 mg at night). Do not start hydroxyzine, was just prescribed it recently by Dr. Beltran, she has not started it yet. I am not sure of the indication for the amitriptyline, that has been discontinued, I am not sure if there is any indication for that on psychiatric standpoint, in this patient. PLAN: Decrease the medicines in a stepwise fashion, rather than abruptly. Further changes can be made when she sees her psychiatrist Dr. Beltran, and I would suggest that she is seen sooner than previously scheduled. She is made aware of my recommendations. Thank you for the consult. If you have any questions, please call. I discussed the above with Dr. Campbell, the hospitalist. The assessment took 35 minutes. Vital signs: Blood pressure 127/92, pulse 77, temperature 97.7.
[2019-01-06 10:00] VITALS: BP 111/72
[2019-01-06] MEDS ORDERED: TRAZ1TAB14 PO (11:33)
[2019-01-06] MEDS ORDERED: LEVO75TA4 PO (11:33)
--- NOTE | 2019-01-06 17:41 | DSES ---
DATE OF ADMISSION: 01/03/2019 DATE OF DISCHARGE: 01/06/2019 PRIMARY CARE PROVIDER: Pa Mcdonough [employer] PRINCIPAL: Dr. Onofre OUTPATIENT PSYCHOLOGIST: Dr. Beltran FINAL DIAGNOSES: Hypotension with near syncope History of anxiety, depression, bipolar disorder, post-traumatic stress disorder. History of overdose. History of seizure. History of hypothyroidism. Smoking. History of chronic obstructive pulmonary disease (COPD). History of migraine. Norovirus. Recent fall with sacral pain. HISTORY OF PRESENT ILLNESS: This is a 48-year-old female patient with underlying medical history of multiple psychiatric disorders including anxiety, depression, bipolar disorder, post-traumatic stress disorder, requiring prior mental health hospitalization for overdose, history of seizure, follows with Dr. Hinkle, history of esophageal stricture requiring dilatation, history of COPD, and prior smoking history, presented with several days of dizziness, near fall, near syncope, noted by her previous doctor that her blood pressure was on the low side, ongoing issue with dizziness for the past several days with several episodes of nearly falling. Unsure if she actually syncopized or not. Patient is a poor historian. Denies any chest pain, pressure, discomfort. Denies any shortness of breath. Denies any fevers or chills. She was hypotensive in the emergency department (ED). HOSPITAL COURSE: Given IV fluids. Patient's amitriptyline and Prozac was initially held. Echocardiogram was done. Serial cardiac enzymes were done. Thyroid profile appreciated. Patient's Synthroid dose has been reduced. Psychiatrist, Dr. Onofre, has been consulted for adjustment of underlying medication. The patient's trazodone was decreased to 150 mg by mouth nightly. Seroquel was decreased to 400 mg by mouth nightly. Hydroxyzine was on hold. Patient was also found to have Norovirus. Patient tolerated oral. Denies any nausea or vomiting. Reported resolved recurring diarrhea. Denies any chest pain, pressure, or discomfort. Denies any suicidality or homicidality. Does not appear to be depressed. She is ready to be discharged for further care as an outpatient. VITAL SIGNS: Temperature 98.7, pulse 92, respirations 20, blood pressure 111/72, pulse oximetry 99% on room air. LABORATORY: WBC 9.7, hemoglobin and hematocrit 14.4 over 42.8, platelets 250. Chemistry: Sodium 139, potassium 4, chloride 112, bicarbonate 19, BUN 13, creatinine 0.58. GENERAL: Patient alert, comfortable, in no acute distress. HEENT: Normocephalic, atraumatic. PULMONARY: Bilaterally clear. CARDIAC: Regular, S1, S2. ABDOMEN: Soft, nontender. Positive bowel sounds. EXTREMITIES: No clubbing, cyanosis, or edema. DISCHARGE MEDICATIONS: - Synthroid decreased to 75 mcg by mouth daily - trazodone decreased to 150 mg by mouth nightly - Ventolin inhalers four times a day as needed - Xanax 1 mg by mouth three times a day as needed - amitriptyline 25 mg by mouth nightly - Saphris 5 mg sublingual twice a day - carisoprodol 350 mg by mouth three times a day as needed - vitamin D 1000 units by mouth twice a day - Lamictal 100 mg by mouth twice a day - Linzess 145 mcg by mouth daily - Mobic 15 mg by mouth daily - Myrbetriq 25 mg by mouth daily - Seroquel 400 mg by mouth nightly - Imitrex 6 mg subcu as needed - topiramate 200 mg by mouth twice a day - Effexor 150 mg by mouth twice a day DISCHARGE INSTRUCTIONS: Please see primary care provider in 7 days. Please see psychiatry in 7-10 days. Please check orthostatic vital signs with primary care provider. Oral hydration. Seroquel dose has been reduced, as mentioned above. Trazodone K[place] has been reduced, as mentioned above. Holding Prozac. Holding hydroxyzine. Decrease Synthroid to 75 mcg by mouth daily. Check thyroid profile with primary care provider. Return if symptoms worsen. Fall precaution. edited: 01/07/2019 1351 tkmadina SOLANO
== END 2019-01-06 12:50 | disposition home or self-care (01) ==
LOC: M ED 12:08 → M ED INP 21:08 → M MSPAV 01-04 16:00
PROVIDERS: ADMIT Internal Medicine; ATTEND Hospitalist
DX: I95.9 Hypotension, unspecified (principal); R55 Syncope and collapse; F43.10 Post-traumatic stress disorder, unspecified; F31.9 Bipolar disorder, unspecified; E03.9 Hypothyroidism, unspecified; F17.210 Nicotine dependence, cigarettes, uncomplicated; A08.11 Acute gastroenteropathy due to Norwalk agent; J44.9 Chronic obstructive pulmonary disease, unspecified; Z91.81 History of falling; Z79.51 Long term (current) use of inhaled steroids; G43.909 Migraine, unspecified, not intractable, without status migrainosus; R14.0 Abdominal distension (gaseous); Z79.899 Other long term (current) drug therapy; R63.4 Abnormal weight loss; R10.84 Generalized abdominal pain; R68.81 Early satiety; Z90.49 Acquired absence of other specified parts of digestive tract
CPT/HCPCS: 36415; 70450; 71046; 72220; 74177; 80048; 80076; 80307; 81001; 82550; 82553; 83735; 84436; 84439; 84443; 84479; 84481; 84484; 85025; 85027; 87040; 87507; 93005; 93041; 93306; 94760; 96361; 96372; 96374; 97161; 99221; 99285; G0378; G0480; J1610; Q9967

== ENCOUNTER → 2019-01-03 | Outpatient (CLI) | payer MEDICAID, MEDICARE ==
[~2019-01-03] MED LIST changes: +AMIT25TA PO; +CELE1CAP4 PO; +GLUCAGON FOR INJ 1 MG VIAL (J1610) As Ordered ONE; +HYDR50TA70 PO; +ISOVUE-370 76% 125ML VIAL (Q9967 PER ML) As Ordered ONE; +LEVO100T54 PO; +LEVO75TA4 PO; +LINZ145C PO; +MOBI15TA PO; +MYRB25TA PO; +NORC1TAB4 PO; +TOPI100T9 PO; +TOPI200T7 PO; +TRAZ1TAB14 PO; +VoLumen 0.1% SUSPENSION 450ML BOTTLE As Ordered ONE
--- NOTE | 2019-01-03 16:29 | REP ---
CT enterography: With IV and oral contrast. History: Abnormal weight loss. Abdomen pain. Comparison study: No comparison CT study. CT enterography Technique: The patient ingested oral Volumen for PO contrast per protocol. 0.6 mg of intravenous glucagon is administered. 100 ml of Isovue 370 is given intravenously for intravenous contrast. Helical scanning is acquired. Arterial phase and delayed phase imaging was acquired. Thick slab coronal and sagittal MIP images are generated. In addition coronal and sagittal multiplanar re-formation images are generated and reviewed along with axial images. CT enterography findings: Preliminary digital application support consultant radiograph shows a normal bowel gas pattern. Moderate left colonic stool. Clips in the right upper quadrant. The patient gives a history of gastric bypass surgery but I do not see evidence of this. There are one or two clips at the gastroesophageal junction. There is air and fluid in the mildly distended stomach. Air and fluid is seen in the first and second portion of the duodenum. There is a small descending duodenal diverticulum. There is an accessory splenule in the left upper quadrant. There is a low-density nodule in the left adrenal gland measuring 3.3 x 2.3 x 3.4 cm. This has mean Hounsfield unit density of 3.3 and minimum Hounsfield unit density of -48. This is visualized on CT study of the chest from December 08, 2014 and is felt to be a benign adrenal adenoma. No pancreatic lesion is seen. Small and large bowel loops show no evidence of mural thickening, hyper enhancement, obstruction, or mass. A normal appendix is seen in the right lower quadrant. There is formed stool in the rectum. Uterus is deviated to the right but appears intact. No ovarian or urinary bladder abnormality is seen. No abdominal wall defect is noted. No bony destructive lesion. Impression: 1. Post cholecystectomy. Clips at the GE junction. 2. Benign adrenal adenoma left adrenal gland. 3. Air and fluid producing mild distension of the stomach. 4. Otherwise negative CT enterography. Electronically Signed by Marty Kramer MD 01/03/2019 04:52 P
== END ==
LOC: M RAD 09:58
PROVIDERS: ATTEND Physician Assistant Medical
DX: R14.0 Abdominal distension (gaseous) (principal); R63.4 Abnormal weight loss; R10.84 Generalized abdominal pain; R68.81 Early satiety; Z90.49 Acquired absence of other specified parts of digestive tract

== ENCOUNTER 2019-01-30 09:54 | Day surgery (SDC) | payer OTHER ==
[~2019-01-30] VITALS: Ht 160 cm; Wt 65.8 kg
[~2019-01-30 09:54] MED LIST changes: -/ACETCOD2T PO; -/LAMO10TA OR; -/LAMO10TA PO; +ACET1TAB15 PO; +AMIT25TA PO; +CELE1CAP4 PO; +HYDR50TA70 PO; +LAMI1TAB7 OR; +LAMO100T80 PO; -LAMO10TA PO; +LEVO100T54 PO; +LEVO75TA4 PO; +LINZ145C PO; +MOBI15TA PO; +MYRB25TA PO; -NORC1TAB4 PO; +NORC1TAB7 PO; +TOPI100T9 PO; +TOPI200T7 PO; +TRAZ1TAB14 PO; +medical marijuana IH
[2019-01-30] MEDS ORDERED: NS 1,000 ML IV ONE (11:00)
[2019-01-30] MEDS ORDERED: LIDOCAINE 2% INJ 100 MG/5 ML SDV (FOR ANES.) As Ordered ONE (12:28)
[2019-01-30] MEDS ORDERED: PROPOFOL 200 MG/20 ML VIAL As Ordered ONE (12:28)
--- NOTE | 2019-01-30 12:45 | ROOR ---
Patient Name: Sara Chavarria Procedure Date: 01/30/2019 12:23 PM Date of : 1970 Age: 48 Room: [facility] Gender: Female Note Status: Finalized Procedure: Upper GI endoscopy Indications: Generalized abdominal pain, Functional Dyspepsia, Dysphagia Providers: Chente ARGUELLO MD Referring MD: Pa TORRES MD Requesting Provider: Medicines: Monitored Anesthesia Care Complications: No immediate complications. Procedure: Pre-Anesthesia Assessment: - The heart rate, respiratory rate, oxygen saturations, blood pressure, adequacy of pulmonary ventilation, and response to care were monitored throughout the procedure. The Endoscope was introduced through the mouth, and advanced to the second part of duodenum. The upper GI endoscopy was accomplished without difficulty. The patient tolerated the procedure well. Findings: The Z-line was variable and was found 40 cm from the incisors. This was biopsied with a cold forceps for histology. The esophagus was normal. The stomach was normal. The examined duodenum was normal. Evidence of a fundoplication was found in the cardia. The wrap appeared intact. Impression: - Z-line variable, 40 cm from the incisors. Biopsied. - Normal esophagus. - Normal stomach. A fundoplication was found. The wrap appears intact. - Normal examined duodenum. Recommendation: - Observe patient's clinical course. - Telephone endoscopist for pathology results in 2 weeks. - Return to referring physician as previously scheduled. Chente Arguello MD Chente ARGUELLO MD 01/30/2019 12:44:38 PM Electronically signed by Chente ARGUELLO MD Number of Addenda: 0 Note Initiated On: 01/30/2019 12:23 PM Estimated Blood Loss: Estimated blood loss: none.
--- NOTE | 2019-01-30 13:05 | ROOR ---
Patient Name: Sara Chavarria Procedure Date: 01/30/2019 12:24 PM Date of : 1970 Age: 48 Room: [facility] Gender: Female Note Status: Finalized Procedure: Colonoscopy Indications: Generalized abdominal pain, Irritable bowel syndrome with constipation, Change in bowel habits Providers: Chente ARGUELLO MD Referring MD: Pa TORRES MD Requesting Provider: Medicines: Monitored Anesthesia Care Complications: No immediate complications. Procedure: Pre-Anesthesia Assessment: - The heart rate, respiratory rate, oxygen saturations, blood pressure, adequacy of pulmonary ventilation, and response to care were monitored throughout the procedure. The Colonoscope was introduced through the anus and advanced to 10 cm into the ileum. The colonoscopy was performed without difficulty. The patient tolerated the procedure well. The quality of the bowel preparation was good. Findings: The perianal and digital rectal examinations were normal. Four flat polyps were found in the sigmoid colon and hepatic flexure. The polyps were 3 to 6 mm in size. These polyps were removed with a cold snare. Resection and retrieval were complete. A few small-mouthed diverticula were found in the sigmoid colon. Small Internal Hemorrhoids. The terminal ileum appeared normal. Impression: - Four 3 to 6 mm polyps in the sigmoid colon and at the hepatic flexure, removed with a cold snare. Resected and retrieved. - Minimal diverticulosis in the sigmoid colon. - Small Internal Hemorrhoids. - The colon is otherwise normal. - The examined portion of the ileum was normal. Recommendation: - Continue present medications. - Await pathology results. - Telephone endoscopist for pathology results in 2 weeks. - If the pathology report reveals adenomatous tissue, then repeat the colonoscopy for surveillance in 3 - 5 years. - Return to referring physician as previously scheduled. Chente Arguello MD Chente ARUGELLO MD 01/30/2019 1:05:38 PM Electronically signed by Chente ARGUELLO MD Number of Addenda: 0 Note Initiated On: 01/30/2019 12:24 PM Estimated Blood Loss: Estimated blood loss: none.
[2019-01-30 13:34] VITALS: BP 137/96
== END 2019-01-30 13:36 | disposition home or self-care (01) ==
LOC: M OPP 09:54
PROVIDERS: ATTEND Internal Medicine Gastroenterology
DX: D12.5 Benign neoplasm of sigmoid colon (principal); D12.3 Benign neoplasm of transverse colon; K57.30 Diverticulosis of large intestine without perforation or abscess without bleeding; K64.8 Other hemorrhoids; R10.84 Generalized abdominal pain; K58.1 Irritable bowel syndrome with constipation; K22.8 Other specified diseases of esophagus; R19.4 Change in bowel habit; R13.10 Dysphagia, unspecified; K30 Functional dyspepsia; Z98.890 Other specified postprocedural states

== ENCOUNTER → 2019-02-12 | Outpatient (CLI) | payer OTHER ==
--- NOTE | 2019-02-12 13:38 | NUR ---
Pt presents without oral or pharyngeal phase dysphagia. Swallow is adequate. Recommend: Regular solids with extra sauces/gravies/condiments and thin liquids. Meds whole with liquid wash. Since Pt does c/o occasional heartburn, it is possible that globus sensation is residual from acid reflux. Recommend: 1-2 therapy sessions to address GERD diet and behavioral considerations. MD consider GERD medication if diet and behavioral changes are not successful. Addendum: 02/12/19 at [address] [facility] Amended: Links added.
--- NOTE | 2019-02-12 16:43 | REP ---
COOKIE SWALLOW The procedure was performed under the direct supervision of Dr. Nevarez. The procedure was performed with Mee Rios from speech pathology present. 5 ml aliquots of thin, pudding, fruit, soft food and solid consistency barium was administered. The barium pill was administered as well. There is no evidence of penetration or aspiration. The detailed report of this examination will be provided by speech pathology. 0.8 minutes of fluoroscopy time was utilized for this procedure. Reviewed by CHUCHO Pickett 02/12/2019 04:30 P Electronically Signed by Glenn Nevarez MD 02/12/2019 04:33 P
== END ==
LOC: M ST 12:32
PROVIDERS: ATTEND Physician Assistant Medical
DX: R13.10 Dysphagia, unspecified (principal)

== ENCOUNTER → 2019-03-14 | Outpatient (CLI) | payer MEDICARE ==
[~2019-03-14] MED LIST changes: +TRAZ1TAB10 PO; -TRAZO50TA PO
--- NOTE | 2019-03-14 15:35 | NUR ---
Pt presents to outpatient speech therapy office w/ c/o difficulty getting food in to her esophagus and decreased appetite. Pt completed MBSS cookie swallow 02/12/19 which showed oropharyngeal phases of swallow function wnl, no evidence of dysphagia. During clinical exam this date, pt tolerated thin liquids, soft solids, and regular solids adequately. Pt educated on behavioral GERD management strategies, use of extra condiments/sauces/gravies for slick esophageal diet, and liquid wash to help relieve globus sensation. Recommend that if these strategies are not successful, that MD consider Rx for GERD management as appropriate. Dysphagia tx f/u x1 for education regarding compensatory strategies. Addendum: 03/14/[address] [facility] SP Amended: Links added.
== END ==
LOC: M ST 14:25
PROVIDERS: ATTEND Physician Assistant Medical
DX: R13.10 Dysphagia, unspecified (principal)

== ENCOUNTER 2019-03-29 13:07 | Observation (INO) | payer MEDICARE ==
[~2019-03-29] VITALS: Ht 160 cm; Wt 68.2 kg
[2019-03-29] MEDS ORDERED: NS 1,000 ML IV ONE (13:30)
[2019-03-29] MEDS ORDERED: CHARCOAL ACTIVATED LIQUID 25 GM/120 ML BTL PO ONE (13:30)
[2019-03-29 13:36] LABS: BASO # 0.1 10^3/uL (0.0-0.2); BASO % 0.5 % (0.0-1.0); EOS % 0.2 % (0.0-3.0); HEMATOCRIT 41.4 % (36.0-47.0); HEMOGLOBIN 14.2 g/dl (12.0-15.5); LYMPH # 2.1 10^3/uL (1.5-4.5); MEAN CORPUSCULAR HEMOGLOBIN 33.1 pg (27.0-33.0); MEAN CORPUSCULAR HGB CONC 34.3 g/dl (32.0-36.5); MEAN CORPUSCULAR VOLUME 96.5 fl (80.0-96.0); MONO # 0.5 10^3/uL (0.0-0.8); NEUTROPHILS # 8.1 10^3/uL (1.8-7.7); NEUTROPHILS % 74.9 % (36.0-66.0); PLATELET COUNT, AUTOMATED 227 10^3/uL (150-450); RED BLOOD COUNT 4.29 10^6/uL (4.00-5.40); WHITE BLOOD COUNT 10.8 10^3/uL (4.0-10.0)
[2019-03-29 14:26] LABS: ACETAMINOPHEN LEVEL < 2.0 UG/ML (10.0-30.0); ALBUMIN 3.6 GM/DL (3.2-5.2); ALT/SGPT 20 U/L (12-78); BILIRUBIN,DIRECT 0.1 MG/DL (0.0-0.2); BILIRUBIN,TOTAL 0.3 MG/DL (0.2-1.0); BLOOD UREA NITROGEN 13 MG/DL (7-18); CALCIUM LEVEL 8.7 MG/DL (8.5-10.1); CARBON DIOXIDE LEVEL 19 MEQ/L (21-32); CHLORIDE LEVEL 111 MEQ/L (98-107); CPK CREATINE PHOSPHOKINASE 61 U/L (26-192); CREATININE FOR GFR 0.64 MG/DL (0.55-1.30); ETHYL ALCOHOL (ETHANOL) < 0.003 % (0.000-0.010); GLOMERULAR FILTRATION RATE > 60.0 (>51); GLUCOSE, FASTING 140 MG/DL (70-100); POTASSIUM SERUM 3.5 MEQ/L (3.5-5.1); SALICYLATE LEVEL 4.8 MG/DL (5.0-30.0); SODIUM LEVEL 141 MEQ/L (136-145); TOTAL PROTEIN 7.1 GM/DL (6.4-8.2)
[2019-03-29 14:54] LABS: AMPHETAMINES LEVEL URINE NEGATIVE (NEGATIVE); BARBITURATES URINE NEGATIVE (NEGATIVE); BENZODIAZEPINES URINE NEGATIVE (NEGATIVE); CANNABINOIDS URINE POSITIVE (NEGATIVE); COCAINE METABOLITE URINE NEGATIVE (NEGATIVE); METHADONE URINE NEGATIVE (NEGATIVE); OPIATES URINE NEGATIVE (NEGATIVE); PHENCYCLIDINE URINE NEGATIVE (NEGATIVE)
[2019-03-29] MEDS ORDERED: D5W/0.45% SODIUM CHLORIDE 1,000 ML IV SCH (15:30)
[2019-03-29] MEDS ORDERED: HYDRO50TAB PO (16:07)
[2019-03-29] MEDS ORDERED: CELE1CAP9 PO (16:07)
[2019-03-29] MEDS ORDERED: LINZ290C PO (16:07)
[2019-03-29] MEDS ORDERED: SOMA350T PO (16:07)
[2019-03-29] MEDS ORDERED: SYNT75TA PO (16:07)
[2019-03-29] MEDS ORDERED: QUET1TAB8 PO (16:07)
[2019-03-29] MEDS ORDERED: TRAZ300T2 PO (16:07)
--- NOTE | 2019-03-29 16:50 | HPE ---
DATE OF ADMISSION: 03/29/2019 CHIEF COMPLAINT: Intentional drug overdose. HISTORY OF PRESENT ILLNESS: This is a 48-year-old female with a past medical history significant for bipolar disorder, anxiety, depression, posttraumatic stress disorder (PTSD) requiring multiple mental health admissions due to drug ingestion, presented to the emergency room after ingestion of quetiapine, amitriptyline and loperamide. The patient lives alone in her apartment and called her boyfriend at 11:00 a.m. this morning asking him to knot picker cloth prescription medications due to bad anxiety. At noontime she called emergency medical services (EMS) and then called her boyfriend stating that she had taken too much medication. She then proceeded to come to the emergency room for further evaluation. According to the boyfriend, who lives at home, the patient had been complaining of severe anxiety and depression for the past week and was concerned about drinking alcohol again. She has been drinking a few times and has spoken to her counselor about it. The patient has had no recent stressors at home, has not had any fights with her boyfriend. In the emergency room, she was found to be lethargic and obtunded, unable to be given oral charcoal. Electrocardiogram (EKG) on admission at 1323 hours showed a QT interval of 386, QTC of 463. Repeat EKG at 1443 hours showed QT 377 and QTC of 432. Per poison control, the patient should be monitored for the next 12 hours. If no significant events, she is medically stable for medical discharge. Psychiatrist has not been consulted, as the patient is still not medically cleared. No information has been obtained from the patient as she is currently obtunded. Vital signs appear to be stable however. PAST MEDICAL HISTORY: 1. History of suicidal ideation and suicidal attempts. 2. Intentional drug overdose in the past. 3. Anxiety, depression, bipolar disorder, and posttraumatic stress disorder (PTSD) requiring multiple mental health hospitalizations for prior overdose. 4. Seizures, followed by Dr. Tena. 5. Esophageal stricture requiring dilation and esophagogastroduodenoscopy (EGD). 6. Chronic obstructive pulmonary disease (COPD) with prior history of smoking. PAST SURGICAL HISTORY: 1. section. 2. Fundoplication. 3. Cholecystectomy. 4. Dilation and curettage. ALLERGIES: ACETAMINOPHEN, ASPIRIN, IBUPROFEN, PENICILLIN, QUINOLONES. SOCIAL HISTORY: She is , . Currently has a boyfriend. She does not live with anyone in her apartment. She smokes a half of a pack a day since she was 12. She has quit alcohol use, but has recently drinking in the past week. HOME MEDICATIONS: - albuterol two puffs four times a day as needed - amitriptyline 25 mg at night - Soma 350 mg three times a day as needed - hydroxyzine 50 mg daily as needed - levothyroxine 75 mcg daily - quetiapine 400 mg at night - topiramate 200 mg twice a day - trazodone 300 mg at night - venlafaxine 150 mg twice a day - lamotrigine 100 mg twice a day - Linzess 290 mcg daily - Myrbetriq 25 mg daily - medical marijuana one inhaled three times a day as needed for pain REVIEW OF SYSTEMS: Could not be obtained as the patient is currently obtunded. FAMILY HISTORY: Could not be obtained as the patient is obtunded and lethargic. PHYSICAL EXAMINATION: VITAL SIGNS: Temperature 97.4, pulse 129, sinus tachycardia, respiratory rate 16, blood pressure 127/79, 97% on room air. GENERAL: The patient is obtunded and lethargic. Pupils are equal, round and reactive. Extraocular muscles could not be assessed. Normocephalic, atraumatic. NECK: Supple. Full range of motion. Anicteric sclerae. No jaundice. No cyanosis. No use of respiratory muscles. The patient is mumbling. She is edentulous. No cervical lymphadenopathy or thyromegaly. LUNGS: Clear to auscultation. No wheezing, rales or rhonchi. HEART: S1, S2. Sinus tachycardia. ABDOMEN: Soft, nontender, nondistended. Positive bowel sounds times four quadrants. No rebound or guarding. EXTREMITIES: No cyanosis, clubbing or pitting edema. NEUROLOGIC: Does not follow commands. She has purposeful movements. Obtunded, unable to assess fully. EKG at 1323 hours showed sinus rhythm, ventricular rate of 131, IA interval 122, inferior myocardial infarction (potentially old), QRS 104, QT 386, QTC 463. EKG at 1443 hours showed ventricular rate of 98, sinus rhythm, left atrial enlargement, IA interval 148, incomplete right bundle branch block, QRS of 100, QT 377, QTC 432. White count 10.8, hemoglobin 14, hematocrit 41, platelet count 227. Sodium 141, potassium 3.5, chloride 111, bicarbonate 19, BUN 13, creatinine 0.64, glucose 140, calcium 8.7, total bilirubin 0.3, direct bilirubin 0.18, AST 16, ALT 20, alkaline phosphatase 76, total CK 61, total protein 7.1, albumin 3.6, TSH is 3.12. ASSESSMENT AND PLAN: 48-year-old female admitted as an inpatient for two midnights for intentional drug overdose, possible suicide attempt, admitted for two midnights as an inpatient under telemetry. 1. Intentional drug overdose, positive suicide attempt with quetiapine, amitriptyline, topiramate. Per poison control, the patient needs to be monitored for the next 12 to 24 hours as the quetiapine may be extended release, monitor for central nervous system (SWITCHBOX ASSEMBLER) depression, QTC prolongation and anticholinergic effects. For amitriptyline, check QRS and wide complex seizure activity. THe patient is currently nothing by mouth due to obtundation, lethargy. 2. Severe depression and anxiety. Psychiatric consultation and inpatient mental health unit admission after the patient is medically cleared. We will continue to hold all medications at this time, as she is an aspiration risk. 3. Hypothyroidism. We will resume the patient's Synthroid orally once she is much more awake and alert. We will change to IV levothyroxine at 37.5 mcg IV daily. Check a TSH level. 4. Deep vein thrombosis (DVT) prophylaxis with subcutaneous heparin. 5. Diet. Nothing by mouth, IV fluids. Hyperglycemic protocol, fingersticks every 6 hours. MTDD
[2019-03-29 20:39] VITALS: BP 148/78
[2019-03-29] MEDS: HEPARIN SOD (PORCINE) 5000 UNITS/ML VIAL SC SCH (21:13)
[2019-03-30 04:00] VITALS: BP 128/68
[2019-03-30 05:40] LABS: HEMATOCRIT 38.1 % (36.0-47.0); HEMOGLOBIN 12.9 g/dl (12.0-15.5); MEAN CORPUSCULAR HEMOGLOBIN 32.1 pg (27.0-33.0); MEAN CORPUSCULAR HGB CONC 33.9 g/dl (32.0-36.5); MEAN CORPUSCULAR VOLUME 94.8 fl (80.0-96.0); PLATELET COUNT, AUTOMATED 231 10^3/uL (150-450); RED BLOOD COUNT 4.02 10^6/uL (4.00-5.40); WHITE BLOOD COUNT 7.3 10^3/uL (4.0-10.0)
[2019-03-30 06:00] LABS: BLOOD UREA NITROGEN 6 MG/DL (7-18); CALCIUM LEVEL 8.9 MG/DL (8.5-10.1); CARBON DIOXIDE LEVEL 23 MEQ/L (21-32); CHLORIDE LEVEL 114 MEQ/L (98-107); CREATININE FOR GFR 0.64 MG/DL (0.55-1.30); GLOMERULAR FILTRATION RATE > 60.0 (>51); GLUCOSE, FASTING 88 MG/DL (70-100); POTASSIUM SERUM 3.3 MEQ/L (3.5-5.1); SODIUM LEVEL 144 MEQ/L (136-145)
[2019-03-30] MEDS: HEPARIN SOD (PORCINE) 5000 UNITS/ML VIAL SC SCH ×3 (06:00→21:31)
[2019-03-30 08:00] VITALS: BP 125/73
--- NOTE | 2019-03-30 09:50 | DS.PDOC ---
Discharge Summary General Date of Admission Mar 29, 2019 at 15:21 Date of Discharge Mar 30, 2019 Discharge Summary Psychiatrist: Dr. Chappell Discharge Diagnoses Intentional Drug Overdose History of Suicidal ideation PTSD Anxiety, depression, bipolar disorder Seizures, followed by Dr. Tena. Esophageal stricture requiring dilation and esophagogastroduodenoscopy (EGD). Chronic obstructive pulmonary disease (COPD) with prior history of smoking. Discharge medications: pls see below History of presenting illness: This is a 48-year-old female with a past medical history significant for bipolar disorder, anxiety, depression, posttraumatic stress disorder (PTSD) requiring multiple mental health admissions due to drug ingestion, presented to the emergency room after ingestion of quetiapine, amitriptyline and loperamide. The patient lives alone in her apartment and called her boyfriend at 11:00 a.m. this morning asking him to fruit or nut picker prescription medications due to bad anxiety. At noontime she called emergency medical services (EMS) and then called her boyfriend stating that she had taken too much medication. She then proceeded to come to the emergency room for further evaluation. According to the boyfriend, who lives at home, the patient had been complaining of severe anxiety and depression for the past week and was concerned about drinking alcohol again. She has been drinking a few times and has spoken to her counselor about it. The patient has had no recent stressors at home, has not had any fights with her boyfriend. In the emergency room, she was found to be lethargic and obtunded, unable to be given oral charcoal. Electrocardiogram (EKG) on admission at 1323 hours showed a QT interval of 386, QTC of 463. Repeat EKG at 1443 hours showed QT 377 and QTC of 432. Per poison control, the patient should be monitored for the next 12 hours. If no significant events, she is medically stable for medical discharge. Psychiatrist has not been consulted, as the patient is still not medically cleared. No information has been obtained from the patient as she is currently obtunded. Vital signs appear to be stable however. Hospital Course: Intentional drug overdose, positive suicide attempt with quetiapine, amitriptyline, topiramate. 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 For amitriptyline, check QRS and wide complex seizure activity. s/p Nothing by mouth, IV fluids. Hypoglycemic protocol, fingersticks every 6 hours while npo. tolerating regular diet this morning. Severe depression and anxiety. Psychiatric consultation Dr. Chappell. Psychiatrist to decide which meds to resume. Hypothyroidism. We will resume the patient's Synthroid orally once she is much more awake and alert. We will change to IV levothyroxine at 37.5 mcg IV daily. Check a TSH level. Deep vein thrombosis (DVT) prophylaxis with subcutaneous heparin. Diet. s/p Nothing by mouth, IV fluids. Hypoglycemic protocol, fingersticks every 6 hours while npo. tolerating regular diet this morning. DISCHARGE PHYSICAL EXAMINATION: VITAL SIGNS: pls see below GENERAL: pressured speech, restless, anxious. AAOx3. Pupils are equal, round and reactive. Normocephalic, atraumatic. NECK: Supple. Anicteric sclerae. No jaundice. No cyanosis. No use of respiratory muscles. The patient is mumbling. No cervical lymphadenopathy or thyromegaly. LUNGS: Clear to auscultation. No wheezing, rales or rhonchi. HEART: S1, S2. Sinus tachycardia. ABDOMEN: Soft, nontender, nondistended. Positive bowel sounds times four quadrants. No rebound or guarding. EXTREMITIES: No cyanosis, clubbing or pitting edema. NEUROLOGIC:AAOx3. Pupils are equal, round and reactive. 5/5 motor strength x 4 extremities. no sensory disturbance. no pronator drifts dtrs intact neg babinski pacing in the room. normal gait. EKG at 1323 hours 03/29/19 showed sinus rhythm, ventricular rate of 131, ND inter cristopher 122, inferior myocardial infarction (potentially old), QRS 104, QT 386, QTC 463. EKG at 1443 hours 03/29/19 showed ventricular rate of 98, sinus rhythm, left atrial enlargement, ND interval 148, incomplete right bundle branch block, QRS of 100, QT 377, QTC 432. White count 10.8, hemoglobin 14, hematocrit 41, platelet count 227. Sodium 141, potassium 3.5, chloride 111, bicarbonate 19, BUN 13, creatinine 0.64, glucose 140, calcium 8.7, total bilirubin 0.3, direct bilirubin 0.18, AST 16, A LT 20, alkaline phosphatase 76, total CK 61, total protein 7.1, albumin 3.6, TSH is 3.12. Discharge laboratory data,imaging studies, microbiology : pls see below Time spent on hospital discharge: 35 minutes. Vital Signs/I&Os Vital Signs Date Time Temp Pulse Resp B/P (MAP) Pulse Ox O2 Delivery O2 Flow Rate FiO2 03/30/19 08:00 97.6 91 18 125/73 (90) 100 03/29/19 19:30 Room Air I&O- Last 24 Hours up to 6 AM 03/30/19 06:00 Intake Total 1000 ml Output Total 350 ml Balance 650 ml Laboratory Data Labs 24H Laboratory Tests 2 03/29/19 13:10: Immature Granulocyte % (Auto) 0.4, White Blood Count 10.8H, Red Blood Count 4.29, Hemoglobin 14.2, Hematocrit 41.4, Mean Corpuscular Volume 96.5H, Mean Corpuscular Hemoglobin 33.1H, Mean Corpuscular Hemoglobin Concent 34.3, Red Cell Distribution Width 13.6, Platelet Count 227, Neutrophils (%) (Auto) 74.9H, Lymphocytes (%) (Auto) 19.0L, Monocytes (%) (Auto) 5.0, Eosinophils (%) (Auto) 0.2, Basophils (%) (Auto) 0.5, Neutrophils # (Auto) 8.1H, Lymphocytes # (Auto) 2.1, Monocytes # (Auto) 0.5, Eosinophils # (Auto) 0.0, Basophils # (Auto) 0.1, Nucleated Red Blood Cells % (auto) 0.0, Anion Gap 11, Glomerular Filtration Rate > 60.0, Calcium Level 8.7, Aspartate Amino Transf (AST/SGOT) 16, Alanine Am inotransferase (ALT/SGPT) 20, Alkaline Phosphatase 76, Total Bilirubin 0.3, Direct Bilirubin 0.1, Total Creatine Kinase 61, Total Protein 7.1, Albumin 3.6, Albumin/Globulin Ratio 1.03, Thyroid Stimulating Hormone (TSH) 3.120, Salicylates Level 4.8L, Acetaminophen Level < 2.0L, Ethyl Alcohol Level < 0.003 03/29/19 13:19: Urine pH 5.0, Urine Amphetamines Screen NEGATIVE, Urine Benzodiazepines Screen NEGATIVE, Urine Opiates Screen NEGATIVE, Urine Methadone Screen NEGATIVE, Urine Barbiturates Screen NEGATIVE, Urine Phencyclidine Screen NEGATIVE, Urine Cocaine Metabolite Screen NEGATIVE, Urine Cannabinoids Screen POSITIVEH 03/29/19 13:51: Bedside Glucose (Misc Panel) 131H 03/30/19 01:27: Bedside Glucose (Misc Panel) 93 03/30/19 05:23: Nucleated Red Blood Cells % (auto) 0.0, Anion Gap 7L, Glomerular Filtration Rate > 60.0, Blood Urea Nitrogen 6#L, Creatinine 0.64, Sodium Level 144, Potassium Level 3.3L, Chloride Level 114H, Carbon Dioxide Level 23, Calcium Level 8.9 CBC/BMP Laboratory Tests 03/29/19 13:10 Red Blood Count 4.29, Mean Corpuscular Volume 96.5 H, Mean Corpuscular Hemoglobin 33.1 H, Mean Corpuscular Hemoglobin Concent 34.3, Red Cell Distribution Width 13.6, Neutrophils (%) (Auto) 74.9 H, Lymphocytes (%) (Auto) 19.0 L, Monocytes (%) (Auto) 5.0, Eosinophils (%) (Auto) 0.2, Basophils (%) (Auto) 0.5, Neutrophils # (Auto) 8.1 H, Lymphocytes # (Auto) 2.1, Monocytes # (Auto) 0.5, Eosinophils # (Auto) 0.0, Basophils # (Auto) 0.1 03/30/19 05:23 Red Blood Count 4.02, Mean Corpuscular Volume 94.8, Mean Corpuscular Hemoglobin 32.1, Mean Corpuscular Hemoglobin Concent 33.9, Red Cell Distribution Width 13.4, Calcium Level 8.9 FSBS Laboratory Tests Test 03/29/19 13:51 03/30/19 01:27 Range/Units Bedside Glucose (Misc Panel) 131 93 70-105 MG/DL Discharge Medications Scheduled Celecoxib (Celecoxib) 200 Mg Capsule, 200 MG PO DAILY, (Reported) Levothyroxine Sodium (Synthroid) 75 Mcg Tablet, 75 MCG PO DAILY, (Reported) Scheduled PRN Albuterol Sulfate (Ventolin Hfa) 108 Mcg/Act Aer, 2 PUFFS INH QID PRN for SHORTNESS OF BREATH, (Reported) Hydroxyzine HCl (Hydroxyzine HCl) 50 Mg Tablet, 50 MG PO DAILY PRN for ANXIETY/AGITATION, (Reported) [medical marijuana] , 1 IN IH TID PRN for pain, (Reported) Allergies Coded Allergies: Penicillins (Verified Allergy, Severe, anaphylactic shock, 01/16/19) Quinolones (Verified Allergy, Intermediate, cipro infusion site-> hives, and itching, 01/16/19) acetaminophen (Verified Allergy, Mild, rash, 01/16/19) aspirin (Verified Allergy, Mild, rash, 01/16/19) ibuprofen (Verified Allergy, Mild, rash, 01/16/19) EILEEN ARORA MD Mar 30, 2019 09:50
[2019-03-30] MEDS ORDERED: SLF 3 ML SYR IV PRN (10:45)
[2019-03-30 12:00] VITALS: BP 147/87
[2019-03-30] MEDS: SLF 3 ML SYR IV SCH ×2 (15:12→22:47)
[2019-03-30 16:00] VITALS: BP 118/65
[2019-03-30] MEDS ORDERED: ALBUTEROL 90 MCG/ACT 8GM HFA INHALER INH PRN (17:00)
--- NOTE | 2019-03-30 18:48 | ECGEPIP ---
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
--- NOTE | 2019-03-30 18:48 | ECGEPIP ---
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
[2019-03-30] MEDS ORDERED: POTASSIUM CHLORIDE 10 MEQ SR TABLET PO ONE (19:00)
[2019-03-30 20:00] VITALS: BP 107/75
[2019-03-31] VITALS: BP 176/90
[2019-03-31] MEDS: hydrOXYzine 50 MG TAB PO PRN ×2 (00:14→08:55)
[2019-03-31 06:00] VITALS: BP 148/76
[2019-03-31] MEDS: HEPARIN SOD (PORCINE) 5000 UNITS/ML VIAL SC SCH (06:06)
[2019-03-31] MEDS: SLF 3 ML SYR IV SCH (06:07)
--- NOTE | 2019-03-31 11:02 | IPNPDOC ---
Date Seen The patient was seen on 03/31/19. Progress Note Subjective: still awaiitng psych clearance and psych to decide on discharge meds. pt has been cooperative, and denies suicide attempt. She is tolerating her diet, and back to baseline mentation. PHYSICAL EXAMINATION: VITAL SIGNS: pls see below GENERAL: AAO x 3 NECK: Supple. Full range of motion. Anicteric sclerae. No jaundice. No cyanosis. No use of respiratory muscles. The patient is mumbling. She is edentulous. No cervical lymphadenopathy or thyromegaly. LUNGS: Clear to auscultation. No wheezing, rales or rhonchi. HEART: S1, S2. Sinus tachycardia. ABDOMEN: Soft, nontender, nondistended. Positive bowel sounds times four quadrants. No rebound or guarding. EXTREMITIES: No cyanosis, clubbing or pitting edema. NEUROLOGIC: AAOx3, 5/5 motor function x 4 extremities, no sensory disturbance no gait ataxia EKG at 1323 hours showed sinus rhythm, ventricular rate of 131, ND interval 122, inferior myocardial infarction (potentially old), QRS 104, QT 386, QTC 463. EKG at 1443 hours showed ventricular rate of 98, sinus rhythm, left atrial enlargement, ND interval 148, incomplete right bundle branch block, QRS of 100, QT 377, QTC 432. ADMISSION LABS: White count 10.8, hemoglobin 14, hematocrit 41, platelet count 227. Sodium 141, potassium 3.5, chloride 111, bicarbonate 19, BUN 13, creatinine 0.64, glucose 140, calcium 8.7, total bilirubin 0.3, direct bilirubin 0.18, AST 16, ALT 20, alkaline phosphatase 76, total CK 61, total protein 7.1, albumin 3.6, TSH is 3.12. LABORATORY DATA, IMAGING STUDIES, MICROBIOLOGY: REVIEWED. ASSESSMENT AND PLAN: This is a 48-year-old female with a past medical history significant for bipolar disorder, anxiety, depression, posttraumatic stress disorder (PTSD) requiring multiple mental health admissions due to drug ingestion, presented to the emergency room after ingestion of quetiapine, amitriptyline and loperamide. The patient lives alone in her apartment and called her boyfriend at 11:00 a.m. this morning asking him to picker operator prescription medications due to bad anxiety. At noontime she called emergency medical services (EMS) and then called her boyfriend stating that she had taken too much medication. She then proceeded to come to the emergency room for further evaluation. According to the boyfriend, who lives at home, the patient had been complaining of severe anxiety and depression for the past week and was concerned about drinking alcohol again. She has been drinking a few times and has spoken to her counselor about it. The patient has had no recent stressors at home, has not had any fights with her boyfriend. In the emergency room, she was found to be lethargic and obtunded, unable to be given oral charcoal. Electrocardiogram (EKG) on admission at 1323 hours showed a QT interval of 386, QTC of 463. Repeat EKG at 1443 hours showed QT 377 and QTC of 432. Per poison control, the patient should be monitored for the next 12 hours. If no significant events, she is medically stable for medical discharge. Psychiatrist has not been consulted, as the patient is still not medically cleared. No information has been obtained from the patient as she is currently obtunded. Vital signs appear to be stable however. Intentional drug overdose, positive suicide attempt with quetiapine, amitriptyline, topiramate. Per poison control, the patient needed to be monitored for the next 12 to 24 hours as the quetiapine may be extended release, monitor for central nervous system (SUPERVISOR LIQUEFACTION) depression, QTC prolongation and anticholinergic effects. For amitriptyline, check QRS and wide complex seizure activity. s/p nothing by mouth due to obtundation, lethargy. Tele was unremarkable. Severe depression and anxiety. Psychiatric consultation to determine which meds need to be resumed, and if pt can be discharged home Hypothyroidism. on po synthroid Deep vein thrombosis (DVT) prophylaxis with subcutaneous heparin. Diet : regular disposition: awaiting psych eval. VS, I&O, 24H, Fishbone Vital Signs/I&O Vital Signs Date Time Temp Pulse Resp B/P (MAP) Pulse Ox O2 Delivery O2 Flow Rate FiO2 03/31/19 06:00 96.8 67 18 148/76 (100) 99 03/29/19 19:30 Room Air I&O- Last 24 Hours up to 6 AM 03/31/19 06:00 Intake Total 2320 ml Output Total 150 ml Balance 2170 ml Laboratory Data 24H LABS Laboratory Tests 2 03/30/19 11:59: Bedside Glucose (Misc Panel) 98 03/30/19 17:15: Bedside Glucose (Misc Panel) 86 03/31/19 05:35: Bedside Glucose (Misc Panel) 98 EILEEN ARORA MD Mar 31, 2019 08:53
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
[2019-03-31] MEDS ORDERED: LAMO100T PO (13:18)
[2019-03-31] MEDS ORDERED: AMIT25TA PO (13:18)
[2019-03-31] MEDS ORDERED: SOMA350T PO (13:18)
[2019-03-31] MEDS ORDERED: TRAZ300T16 PO (13:18)
[2019-03-31] MEDS ORDERED: VENL150C43 PO (13:18)
[2019-03-31] MEDS ORDERED: MYRB25TA PO (13:18)
[2019-03-31] MEDS ORDERED: SERO400T PO (13:18)
[2019-03-31] MEDS ORDERED: TOPA200T7 PO (13:18)
[2019-03-31] MEDS ORDERED: LINZ290C PO (13:18)
== END 2019-03-31 13:45 | disposition home or self-care (01) ==
LOC: M ED 13:07 → EDBD 13:07 → M ED INP 15:21 → M PCU 19:57 → M MSPAV 03-30 22:25
PROVIDERS: ADMIT General Practice; ATTEND General Practice
DX: T43.012A Poisoning by tricyclic antidepressants, intentional self-harm, initial encounter (principal); T47.6X2A Poisoning by antidiarrheal drugs, intentional self-harm, initial encounter; T43.502A Poisoning by unspecified antipsychotics and neuroleptics, intentional self-harm, initial encounter; X58.XXXA Exposure to other specified factors, initial encounter; Y92.098 Other place in other non-institutional residence as the place of occurrence of the external cause; F31.9 Bipolar disorder, unspecified; F60.3 Borderline personality disorder; F41.9 Anxiety disorder, unspecified; F43.10 Post-traumatic stress disorder, unspecified; R56.9 Unspecified convulsions; Z91.5 Personal history of self-harm; J44.9 Chronic obstructive pulmonary disease, unspecified; E03.9 Hypothyroidism, unspecified; F17.210 Nicotine dependence, cigarettes, uncomplicated; Z79.899 Other long term (current) drug therapy; Z88.0 Allergy status to penicillin; Z88.6 Allergy status to analgesic agent; Z88.8 Allergy status to other drugs, medicaments and biological substances
CPT/HCPCS: 36415; 80048; 80076; 80307; 82550; 84443; 85025; 85027; 93005; 93041; 94760; 96360; 96361; 96372; 99223; 99285; G0378; G0480

== ENCOUNTER → 2019-04-03 | Outpatient (CLI) | payer MEDICAID, MEDICARE ==
[~2019-04-03] MED LIST changes: +ALPR0.5T3 PO; +ATOR1TAB19 PO; +CELE1CAP9 PO; +CHOL100029 PO; +CLON1TAB8 PO; +COMMENTS; +EFFE150C2 PO; +HYDR1TAB33 PO; +LAMO100T3 PO; +LINZ290C PO; +PROP10TA56 PO; +QUET1TAB8 PO; +SYNT75TA PO; +SYNT88TA2 PO; +TOPA200T7 PO; +TRAZ300T16 PO; +VIST50CA PO; +VITA50005 PO; +ZONI100C17 PO; -ZONI100C2 PO; +marajuana
--- NOTE | 2019-04-03 15:53 | REPMRS ---
Patient History The patient states she had a clinical breast exam in 03/2019. Took unspecified hormones for 3 years. 3D TOMOSYNTHESIS WAS PERFORMED. [facility] lifetime risk for breast cancer is 7.6%. Digital Woman Screen Mammo: April 03, 2019 - Exam #: [id number] Bilateral CC and MLO view(s) were taken. Technologist: Ioana Johnson, Technologist Prior study comparison: September 21, 2017, digital woman screen mammo performed at [facility]. February 16, 2016, digital woman screen mammo performed at [facility]. FINDINGS: There are scattered fibroglandular densities. There has been no change in the appearance of the mammogram from the prior studies. There is a mild amount of residual fibroglandular tissue which is fairly symmetric. There is no interval development of dominant mass, architectural distortion, or clustered microcalcification suggestive of malignancy. Assessment: BI-RADS/ACR category 1 mammogram. Negative Mammogram. Recommendation Routine screening mammogram in 1 year (for women over age 40). This mammogram was interpreted with the aid of an FDA-approved computer-aided dectection system. Electronically Signed By: Glenn Nevarez MD 04/03/19 [id number]
== END ==
LOC: M WHC 14:02
PROVIDERS: ATTEND Nurse Practitioner Family
DX: Z12.31 Encounter for screening mammogram for malignant neoplasm of breast (principal); Z92.29 Personal history of other drug therapy
CPT/HCPCS: 77063; 77067; G0463

== ENCOUNTER → 2019-06-10 | Outpatient (REF) | payer MEDICARE, OTHER ==
[2019-06-10 13:23] LABS: BASO # 0.1 10^3/uL (0.0-0.2); BASO % 0.6 % (0.0-1.0); EOS % 0.2 % (0.0-3.0); HEMATOCRIT 46.8 % (36.0-47.0); HEMOGLOBIN 15.4 g/dl (12.0-15.5); LYMPH # 1.5 10^3/uL (1.5-4.5); MEAN CORPUSCULAR HEMOGLOBIN 32.5 pg (27.0-33.0); MEAN CORPUSCULAR HGB CONC 32.9 g/dl (32.0-36.5); MEAN CORPUSCULAR VOLUME 98.7 fl (80.0-96.0); MONO # 0.6 10^3/uL (0.0-0.8); MONO % 4.2 % (0.0-5.0); NEUTROPHILS # 11.1 10^3/uL (1.8-7.7); NEUTROPHILS % 83.6 % (36.0-66.0); PLATELET COUNT, AUTOMATED 236 10^3/uL (150-450); RED BLOOD COUNT 4.74 10^6/uL (4.00-5.40); WHITE BLOOD COUNT 13.3 10^3/uL (4.0-10.0)
[2019-06-10 13:54] LABS: ALBUMIN 3.9 GM/DL (3.2-5.2); ALT/SGPT 16 U/L (12-78); BILIRUBIN,TOTAL 0.2 MG/DL (0.2-1.0); BLOOD UREA NITROGEN 7 MG/DL (7-18); CALCIUM LEVEL 9.5 MG/DL (8.5-10.1); CARBON DIOXIDE LEVEL 24 MEQ/L (21-32); CHLORIDE LEVEL 109 MEQ/L (98-107); CHOLESTEROL LEVEL 246 MG/DL (<200); CREATININE FOR GFR 0.76 MG/DL (0.55-1.30); FREE T4 0.98 NG/DL (0.76-1.46); GLOMERULAR FILTRATION RATE > 60.0 (>51); GLUCOSE, FASTING 97 MG/DL (70-100); HDL CHOLESTEROL 86 MG/DL (>40); LDL CHOLESTEROL 133 MG/DL (<100); NON-HDL-C 160 MG/DL; POTASSIUM SERUM 3.5 MEQ/L (3.5-5.1); SODIUM LEVEL 141 MEQ/L (136-145); TOTAL 25(OH) VITAMIN D 54.8 NG/ML (30.0-100.0); TOTAL PROTEIN 7.8 GM/DL (6.4-8.2); TRIGLYCERIDES LEVEL 136 MG/DL (<150)
[2019-06-10 13:57] LABS: HEMOGLOBIN A1c 4.9 %
== END ==
LOC: M LAB REF 12:31
PROVIDERS: ATTEND Nurse Practitioner Family
DX: Z00.00 Encounter for general adult medical examination without abnormal findings (principal); E07.9 Disorder of thyroid, unspecified; E78.00 Pure hypercholesterolemia, unspecified

== ENCOUNTER 2019-09-09 15:42 | Inpatient (IN) | payer OTHER ==
[~2019-09-09] VITALS: Ht 160 cm; Wt 57.0 kg
[~2019-09-09 15:42] MED LIST changes: -ALPR0.5T3 PO; -ATOR1TAB19 PO; -CHOL100029 PO; -CLON1TAB8 PO; -COMMENTS; -EFFE150C2 PO; -PROP10TA56 PO; -SYNT88TA2 PO; -VIST50CA PO; -VITA50005 PO; -ZONI100C17 PO; +ZONI100C2 PO; -marajuana
[2019-09-09] MEDS ORDERED: CLON1TAB8 PO (16:08)
[2019-09-09] MEDS ORDERED: LEVO100T5 PO (16:08)
[2019-09-09] MEDS ORDERED: ATOR1TAB19 PO (16:08)
[2019-09-09] MEDS ORDERED: ALPR0.5T3 PO (16:08)
[2019-09-09] MEDS ORDERED: marajuana (16:16)
[2019-09-09 17:23] LABS: HEMATOCRIT 50.4 % (36.0-47.0); HEMOGLOBIN 16.4 g/dl (12.0-15.5); MEAN CORPUSCULAR HEMOGLOBIN 31.8 pg (27.0-33.0); MEAN CORPUSCULAR HGB CONC 32.5 g/dl (32.0-36.5); MEAN CORPUSCULAR VOLUME 97.9 fl (80.0-96.0); PLATELET COUNT, AUTOMATED 364 10^3/uL (150-450); RED BLOOD COUNT 5.15 10^6/uL (4.00-5.40); WHITE BLOOD COUNT 13.5 10^3/uL (4.0-10.0)
[2019-09-09 17:42] LABS: AMPHETAMINES LEVEL URINE NEGATIVE (NEGATIVE); BARBITURATES URINE NEGATIVE (NEGATIVE); BENZODIAZEPINES URINE NEGATIVE (NEGATIVE); CANNABINOIDS URINE POSITIVE (NEGATIVE); COCAINE METABOLITE URINE NEGATIVE (NEGATIVE); METHADONE URINE NEGATIVE (NEGATIVE); OPIATES URINE NEGATIVE (NEGATIVE); PHENCYCLIDINE URINE NEGATIVE (NEGATIVE)
[2019-09-09 18:06] LABS: ACETAMINOPHEN LEVEL < 2.0 UG/ML (10.0-30.0); ALBUMIN 3.6 GM/DL (3.2-5.2); ALT/SGPT 22 U/L (12-78); BILIRUBIN,DIRECT 0.1 MG/DL (0.0-0.2); BILIRUBIN,TOTAL 0.4 MG/DL (0.2-1.0); BLOOD UREA NITROGEN 22 MG/DL (7-18); CALCIUM LEVEL 9.6 MG/DL (8.5-10.1); CARBON DIOXIDE LEVEL 24 MEQ/L (21-32); CHLORIDE LEVEL 102 MEQ/L (98-107); CREATININE FOR GFR 0.95 MG/DL (0.55-1.30); ETHYL ALCOHOL (ETHANOL) < 0.003 % (0.000-0.010); GLOMERULAR FILTRATION RATE > 60.0 (>51); GLUCOSE, FASTING 101 MG/DL (70-100); POTASSIUM SERUM 3.2 MEQ/L (3.5-5.1); SODIUM LEVEL 136 MEQ/L (136-145); THYROID STIMULATING HORMONE 0.207 uIU/ML (0.358-3.740); TOTAL PROTEIN 8.6 GM/DL (6.4-8.2)
[2019-09-09] MEDS ORDERED: traMADol 50 MG TAB PO ONE (18:45)
[2019-09-09] MEDS ORDERED: METOCLOPRAMIDE 10 MG TAB PO ONE (18:45)
[2019-09-09] MEDS ORDERED: diphenhydrAMINE 50 MG CAP PO ONE (19:00)
[2019-09-09 19:17] LABS: APPEARANCE, URINE CLOUDY (CLEAR); BACTERIA, URINE AUTO NEGATIVE (NEGATIVE); BILIRUBIN, URINE AUTO NEGATIVE (NEGATIVE); BLOOD, URINE BLOOD 1+ (NEGATIVE); COLOR, URINE YELLOW (YELLOW); GLUCOSE, URINE (UA) AUTO NEGATIVE (NEGATIVE); KETONE, URINE AUTO TRACE mg/dL (NEGATIVE); LEUKOCYTE ESTERASE, URINE AUTO TRACE (NEGATIVE); MUCUS, URINE LARGE (NEGATIVE); NITRITE, URINE AUTO NEGATIVE (NEGATIVE); PROTEIN, URINE AUTO 1+ mg/dL (NEGATIVE); RBC, URINE AUTO 3 /HPF (0-3); SPECIFIC GRAVITY URINE AUTO 1.021 (1.002-1.035); SQUAMOUS EPITHELIAL CELL UR AU 2 /HPF (0-6); UROBILINOGEN, URINE AUTO 0.2 mg/dL (0.0-2.0); WBC, URINE AUTO 9 /HPF (0-3)
[2019-09-09] MEDS ORDERED: SOMA350T PO ×2 (19:36)
[2019-09-09] MEDS ORDERED: TRAZ300T2 PO (19:36)
[2019-09-09] MEDS ORDERED: VENL150C43 PO (19:36)
[2019-09-09] MEDS ORDERED: VITA50005 PO (19:36)
[2019-09-09] MEDS ORDERED: SERO400T PO (19:36)
[2019-09-09] MEDS ORDERED: CHOL100029 PO (19:36)
[2019-09-09] MEDS ORDERED: TOPI200T7 PO (19:36)
[2019-09-09] MEDS ORDERED: LAMO100T80 PO (19:36)
[2019-09-09] MEDS ORDERED: LINZ290C PO (19:36)
[2019-09-09] MEDS ORDERED: ALPRAZolam 0.5 MG TAB PO PRN (23:00)
[2019-09-09] MEDS ORDERED: traZODone 50 MG TAB PO PRN (23:00)
[2019-09-09] MEDS ORDERED: MOM 30ML SUSPENSION UDC PO PRN (23:00)
[2019-09-09] MEDS ORDERED: ALBUTEROL 90 MCG/ACT 8GM HFA INHALER INH PRN (23:00)
[2019-09-09] MEDS ORDERED: MAALOX 30 ML SUSP *UDC PO PRN (23:00)
[2019-09-10 00:15] VITALS: BP 142/79
[2019-09-10] MEDS: QUEtiapine FUMARATE 200 MG TAB PO SCH ×2 (01:14→20:44)
[2019-09-10] MEDS: lamoTRIgine 100MG TAB PO SCH ×2 (01:15→09:22)
[2019-09-10] MEDS: AMITRIPTYLINE 25 MG TAB PO SCH ×2 (01:15→20:44)
[2019-09-10] MEDS: VENLAFAXINE **XR** 75MG CAPSULE PO SCH ×2 (01:15→09:22)
[2019-09-10] MEDS: TOPIRAMATE (TopAMAX) 100 MG TAB PO SCH ×3 (01:15→20:44)
[2019-09-10] MEDS: LEVOTHYROXINE 100MCG TABLET (0.1MG) PO SCH (06:39)
[2019-09-10] MEDS ORDERED: VENLAFAXINE 37.5 MG TAB PO SCH (09:00)
[2019-09-10] MEDS: VITAMIN D 1,000 INTERNATIONAL UNITS TABLET PO SCH (09:22)
[2019-09-10] MEDS: ATORVASTATIN 10 MG TAB PO SCH (09:22)
[2019-09-10] MEDS ORDERED: VENLAFAXINE **XR** 75MG CAPSULE PO ONE (11:30)
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
[2019-09-10] MEDS ORDERED: diphenhydrAMINE 25 MG CAP PO PRN (13:45)
[2019-09-10] MEDS: PROPRANOLOL 10 MG TAB PO SCH ×2 (16:00→20:44)
[2019-09-10 17:16] VITALS: BP 101/69
--- NOTE | 2019-09-10 23:21 | HPEPDOC ---
General Date of Admission Sep 09, 2019 at 22:59 Date of Service: Sep 10, 2019 Chief Complaint The patient is a 49-year-old female admitted with a reason for visit of Unspecfied Depressive Disorder. Source: Patient, Old records History of Present Illness 49 year old female admitted to [facility] for depression with suicidal ideas. I am seeing he patient here for medical history and physical. Today she complained of a rash all over her arms and chest and neck with itching which she says sarted after she took 5 days of antibiotics last weeks for an URi prescribed by her PMD. Her rash were hives and now has scratch velazquez and open sores on her arms and neck. She also complained of a pea sized nodule at urvashi back of her left ear which was painful to palpation. She denied any fever or chills, denied any cough or phlegm or chest pain or SOB. Home Medications Scheduled Atorvastatin Calcium (Atorvastatin Calcium) 10 Mg Tablet, 10 MG PO DAILY, (Reported) Carisoprodol (Soma) 350 Mg Tablet, 350 MG PO QHS, (Reported) Clonazepam (Clonazepam) 1 Mg Tablet, 1 MG PO BID, (Reported) Ergocalciferol (Vitamin D2) (Vitamin D2) 50,000 Unit Capsule, 50,000 UNIT PO QWEEK, (Reported) SUNDAYS Lamotrigine (Lamotrigine) 100 Mg Tablet, 100 MG PO BID, (Reported) Levothyroxine Sodium (Levothyroxine Sodium) 100 Mcg Tablet, 100 MG PO DAILY, (Reported) Linaclotide (Linzess) 290 Mcg Capsule, 290 MCG PO DAILY, (Reported) Quetiapine Fumarate (Seroquel) 400 Mg Tablet, 400 MG PO QHS, (Reported) Topiramate (Topiramate) 200 Mg Tablet, 200 MG PO BID, (Reported) Trazodone HCl (Trazodone HCl) 300 Mg Tablet, 300 MG PO QHS, (Reported) Venlafaxine HCl (Venlafaxine HCl ER) 150 Mg Cap.er.24h, 150 MG PO BID, (Reported) Vitamin D (Vitamin D3) 1,000 Unit Tablet, 1,000 UNITS PO DAILY, (Reported) Scheduled PRN Albuterol Sulfate (Ventolin Hfa) 108 Mcg/Act Aer, 2 PUFFS INH QID PRN for SHORTNESS OF BREATH, (Reported) Carisoprodol (Soma) 350 Mg Tablet, 350 MG PO BID PRN for SPASMS, (Reported) Allergies Coded Allergies: Penicillins (Verified Allergy, Severe, anaphylactic shock, 01/16/19) Quinolones (Verified Allergy, Intermediate, cipro infusion site-> hives, and itching, 01/16/19) acetaminophen (Verified Allergy, Mild, rash, 01/16/19) aspirin (Verified Allergy, Mild, rash, 01/16/19) ibuprofen (Verified Allergy, Mild, rash, 01/16/19) doxycycline (Verified Allergy, Unknown, RASH/ITCHING, 09/09/19) Past Medical History Medical History History of suicidal ideation and suicidal attempts by Intentional drug overdose in the past. Anxiety, depression, bipolar disorder, and posttraumatic stress disorder (PTSD) requiring multiple mental health hospitalizations for prior overdose. Seizures, followed by Dr. Tena. Hyperlipidemia hypothyroid hypertension. Migraine Esophageal stricture requiring dilation and esophagogastroduodenoscopy (EGD). Chronic obstructive pulmonary disease (COPD) with history of smoking. Hypothyroid Surgical History section. Fundoplication. Cholecystectomy. Dilation and curettage. Family History Adopted so does not know any family history. Social History * Smoker: current smoker Alcohol: Denies Drugs: marijuana A-FIB/CHADSVASC A-FIB History Current/History of A-Fib/PAF?: No Review of Systems Constitutional: Denies: Chills, Fever, Night Sweats Eyes: Denies: Pain, Vision change ENT: Denies: Head Aches, Ear Pain, Dysphagia Skin: Reports: Rash, Itching Pulmonary: Denies: Dyspnea, Cough Cardiovascular: Denies: Chest Pain, Palpitations, Orthopnea, Paroxysmal Noc. Dyspnea, Lt Headedness Gastrointestinal: Denies: Nausea, Vomiting, Abdominal Pain, Diarrhea Genitourinary: Denies: Dysuria, Frequency, Incontinence, Retention Hematologic: Denies: Bruising, Bleeding Excessively Musculoskeletal: Denies: Neck Pain, Back Pain, Joint Pain, Muscle Pain, Spasms Neurological: Denies: Weakness, Numbness, Change in speech, Confusion Physical Examination General Exam: Positive: Alert, Cooperative, No Acute Distress Eye Exam: Positive: PERRLA, Conjunctiva & lids normal, EOMI; Negative: Sclera icteric ENT Exam: Positive: Atraumatic, Mucous membr. moist/pink, Pharynx Normal Neck Exam: Positive: Supple, Lymphadenopathy (less than 1cm size lymph node in the posterir triangle of th neck on the left) Chest Exam: Positive: Clear to auscultation, Normal air movement Heart Exam: Positive: Rate Normal, Regular Rhythm, Normal S1, Normal S2; Negative: Murmurs, Rubs Abdomen Exam: Positive: Normal bowel sounds, Soft; Negative: Tenderness, Hepatospenomegaly Extremity Exam: Positive: Normal pulses; Negative: Clubbing, Cyanosis, Edema Skin Exam: Positive: Rash Neuro Exam: Positive: Normal Gait, Normal Speech, Cranial Nerves 3-12 NL, Reflexes 2+ Vital Signs Vital Signs Date Time Temp Pulse Resp B/P (MAP) Pulse Ox O2 Delivery O2 Flow Rate FiO2 09/10/19 10:23 Room Air 09/10/19 00:15 97.4 80 16 142/79 (100) 09/09/19 18:44 97 Laboratory Data Labs 24H Laboratory Tests 2 09/09/19 17:05: Urine Color YELLOW, Urine Appearance CLOUDYH, Urine pH 5.0, Urine Specific Graham 1.021, Urine Protein 1+H, Urine Glucose (Auto)(UA) NEGATIVE, Urine Ketones (Auto) TRACEH, Urine Blood 1+H, Urine Nitrite NEGATIVE, Urine Bilirubin NEGATIVE, Urine Urobilinogen 0.2, Urine Leukocyte Esterase (Auto) TRACEH, Urine WBC (Auto) 9H, Urine RBC (Auto) 3, Urine Hyaline Casts (Auto) 9, Urine Bacteria (Auto) NEGATIVE, Urine Squamous Epithelial Cells 2, Urine Mucus (Auto) LARGE, Urine Sperm (Auto) 09/09/19 17:08: Anion Gap 10, Glomerular Filtration Rate > 60.0, Calcium Level 9.6, Total Bilirubin 0.4, Direct Bilirubin 0.1, Aspartate Amino Transf (AST/SGOT) 14, Alanine Aminotransferase (ALT/SGPT) 22, Alkaline Phosphatase 133H, Total Protein 8.6H, Albumin 3.6, Albumin/Globulin Ratio 0.72L, Thyroid Stimulating Hormone (TSH) 0.207L, Salicylates Level 5.0, Urine Opiates Screen NEGATIVE, Urine Meth adone Screen NEGATIVE, Acetaminophen Level < 2.0L, Urine Barbiturates Screen NEGATIVE, Urine Phencyclidine Screen NEGATIVE, Urine Amphetamines Screen NEGATIVE, Urine Benzodiazepines Screen NEGATIVE, Urine Cocaine Metabolite Screen NEGATIVE, Urine Cannabinoids Screen POSITIVEH, Ethyl Alcohol Level < 0.003 09/09/19 17:09: Nucleated Red Blood Cells % (auto) 0.0 CBC/BMP Laboratory Tests 09/09/19 17:08 09/09/19 17:09 Microbiology Microbiology 09/09/19 Urine Culture, Received Pending Assessment/Plan 49 year old female admitted to [facility] for depression with suicidal ideas. I am seeing he patient here for medical history and physical. Rash: maculopapular erythematous and itchy possibly drug reaction. benadryl prn. cervical lymphnode nonspecific will need follow up as outpatient COPD continue albuterol prn. Hypothyrid synthroid hypertendion propranolol Hyperlipidemia continue statin Seizures continue lamotirgine and topamax. migraine continue topamax Psychiatry as per [facility] Plan / VTE VTE Prophylaxis Ordered?: No (freely ambulatory.) NATHAN EVANS MD Sep 10, 2019 12:17
[2019-09-11] MEDS ORDERED: diphenhydrAMINE INJ 50MG/ML VIAL (J1200) IM STA (01:34)
[2019-09-11] MEDS: LEVOTHYROXINE 100MCG TABLET (0.1MG) PO SCH (05:51)
[2019-09-11 05:56] VITALS: BP 100/60
[2019-09-11] MEDS: PROPRANOLOL 10 MG TAB PO SCH ×3 (08:05→20:43)
[2019-09-11] MEDS: TOPIRAMATE (TopAMAX) 100 MG TAB PO SCH ×2 (08:07→20:52)
[2019-09-11] MEDS: ATORVASTATIN 10 MG TAB PO SCH (08:08)
[2019-09-11] MEDS: VENLAFAXINE **XR** 75MG CAPSULE PO SCH (08:08)
[2019-09-11] MEDS: VITAMIN D 1,000 INTERNATIONAL UNITS TABLET PO SCH (08:08)
[2019-09-11] MEDS: diphenhydrAMINE 50 MG CAP PO PRN (08:11)
--- NOTE | 2019-09-11 09:50 | MHIPNPDOC ---
[facility] Progress Note Progress Note Inpatient Progress Note Miguelina Chavarria MRN: N/A Date of : N/A Date of Service: 09/11/2019 History of Present Illness 49-year-old woman who presented with a history of depression and suicide attempt via overdose, reportedly has multiple psychosocial stressors at home. Interval History The patient is met with today, where she is notably irritable. She describes that she is upset that she was not restarted on her home medications. She reports that she still has the rash, but it's resolving. She states that her anxiety has been made worse. She was given a tiny dose of Ativan with no effect. Discussed with patient that only one-time doses may be given as her primary provider would be returning tomorrow. She otherwise reports that she still feels highly anxious and down at times. No major behavioral problems overnight, per nursing. Review Of Systems General: Denies fever or appetite changes Cardiovascular: Denies Chest pain or palpitations GI: Denies Nausea, vomiting, or bowel changes Respiratory: Denies shortness of breath or cough Neuro: Denies dizziness, tremors : Denies any dysuria or urinary problems MSK: Denies any muscle tightness or stiffness HEENT: Denies any vision changes or headaches Heme/Lymph: denies any bruising or bleeding Endo: denies any cold/heat intolerance or water intake changes Psychotherapy None on this visit. Vital Signs Reviewed. Mental Status Examination General: Well dressed with good hygiene Speech: Spontaneous and fluid Thought processes: Linear and logical MSK: Smooth and coordinated gait, no signs of tremors or involuntary orofacial movements Thought content: Preservative, on medications Abstract reasoning, and computation: Intact Description of associations: Intact Description of abnormal or psychotic thoughts: Denies any suicidal or homicidal ideation. Denies any auditory or visual hallucinations. Does not appear to be responding to internal stimuli. Does not appear to be endorsing any bizarre or paranoid ideation. Judgment: poor Insight: poor Orientation: Alert and orientated 3 Cognition: Grossly normal Recent and remote memory: Intact Attention span and concentration: Intact Fund of knowledge: Adequate Mood: "fine" Affect: Mildly irritable Diagnoses Major depressive disorder, recurrent, without psychosis, severe. Situational anxiety. Assessment and Plan MDD: Continue current management. Situational anxiety: 1 dose of oxazepam 10 mg. Discussed with patient the limited nature of this intervention. Disposition Patient will need a further admission in order to stabilize her depression and safety concerns. Time Spent 15 minutes. Vital Signs Vital Signs Date Time Temp Pulse Resp B/P (MAP) Pulse Ox O2 Delivery O2 Flow Rate FiO2 09/11/19 08:05 88 99/64 09/11/19 05:56 98.3 18 09/10/19 17:16 Room Air 09/09/19 18:44 97 Current Medications Current Medications Medications (Trade) Dose Ordered Sig/Cruz Route PRN Reason Start Time Stop Time Status Last Admin Dose Admin Al Hydrox/Mg Hydrox/Simethicone (Mylanta) 30 ml Q4HP PRN PO HEARTBURN/INDIGESTION 09/09/19 23:00 Albuterol Sulfate (Proventil, Ventolin Hfa) 2 puff QID PRN INH shortness of breath 09/09/19 23:00 Alprazolam (Xanax) 0.5 mg DAILY PRN PO anxiety 09/09/19 23:00 Cancel Amitriptyline HCl (Elavil) 25 mg QPM PO 09/09/19 21:00 09/10/19 20:44 Atorvastatin Calcium (Lipitor) 10 mg DAILY PO 09/10/19 09:00 09/11/19 08:08 Diphenhydramine HCl (Benadryl) 25 mg Q4HP PRN PO ITCHING 09/10/19 13:45 09/11/19 01:38 DC 09/10/19 17:02 Diphenhydramine HCl (Benadryl) 50 mg Q4HP PRN PO ITCHING 09/11/19 01:45 09/11/19 08:11 Diphenhydramine HCl (Benadryl) 50 mg STAT STAT IM 09/11/19 01:34 09/11/19 01:45 DC 09/11/19 01:51 Home Med (Med Rec Complete!) ASDIRECTED XX 09/09/19 19:45 09/09/19 19:51 DC Lamotrigine (LaMICtal) 100 mg BID PO 09/09/19 21:00 09/10/19 12:06 DC 09/10/19 09:22 Levothyroxine Sodium (Synthroid) 100 mcg DAILY@06 PO 09/10/19 06:00 09/11/19 05:51 Magnesium Hydroxide (Milk Of Magnesia) 30 ml DAILYPRN PRN PO CONSTIPATION 09/09/19 23:00 Propranolol HCl (Inderal) 10 mg TID PO 09/10/19 16:00 09/10/19 20:44 Quetiapine Fumarate (SEROquel) 400 mg QHS PO 09/09/19 21:00 09/10/19 20:44 Topiramate (TopAMAX) 200 mg BID PO 09/09/19 21:00 09/11/19 08:07 Trazodone HCl (Desyrel) 50 mg QHSP PRN PO INSOMNIA 09/09/19 23:00 Venlafaxine HCl (Effexor Xr) 150 mg BID PO 09/09/19 21:00 09/10/19 12:06 DC 09/10/19 09:22 Venlafaxine HCl (Effexor Xr) 300 mg DAILY PO 09/11/19 09:00 09/11/19 08:08 Venlafaxine HCl (Effexor) 150 mg BID PO 09/10/19 09:00 09/09/19 23:55 DC Vitamin D (Drisdol) 50,000 units Jackson@09 PO 09/14/19 09:00 09/09/19 23:55 DC Vitamin D (Vitamin D) 1,000 units DAILY PO 09/10/19 09:00 09/11/19 08:08 Allergies Coded Allergies: Penicillins (Verified Allergy, Severe, anaphylactic shock, 01/16/19) Quinolones (Verified Allergy, Intermediate, cipro infusion site-> hives, and itching, 01/16/19) acetaminophen (Verified Allergy, Mild, rash, 01/16/19) aspirin (Verified Allergy, Mild, rash, 01/16/19) ibuprofen (Verified Allergy, Mild, rash, 01/16/19) doxycycline (Verified Allergy, Unknown, RASH/ITCHING, 09/09/19) HOWARD SADLER DO Sep 11, 2019 09:50
[2019-09-11] MEDS ORDERED: LORazepam 0.5 MG TAB PO ONE (11:00)
[2019-09-11] MEDS ORDERED: OXAZEPAM 10 MG CAP PO ONE (16:00)
[2019-09-11 16:14] VITALS: BP 102/60
[2019-09-11] MEDS: AMITRIPTYLINE 25 MG TAB PO SCH (20:48)
[2019-09-11] MEDS: QUEtiapine FUMARATE 200 MG TAB PO SCH (20:48)
[2019-09-12] MEDS: diphenhydrAMINE 50 MG CAP PO PRN (03:24)
[2019-09-12 06:27] VITALS: BP 115/69
[2019-09-12] MEDS: LEVOTHYROXINE 100MCG TABLET (0.1MG) PO SCH (06:38)
[2019-09-12 09:00] VITALS: BP 93/58
[2019-09-12] MEDS: PROPRANOLOL 10 MG TAB PO SCH (09:00)
[2019-09-12] MEDS ORDERED: AMIT25TA PO (09:04)
[2019-09-12] MEDS ORDERED: TOPI200T7 PO (09:04)
[2019-09-12] MEDS ORDERED: SERO400T PO (09:04)
[2019-09-12] MEDS ORDERED: TRAZ300T2 PO (09:04)
[2019-09-12] MEDS ORDERED: PROP10TA56 PO (09:04)
[2019-09-12] MEDS ORDERED: EFFE150C2 PO (09:04)
--- NOTE | 2019-09-12 09:05 | MHDSPDOC ---
[facility] Discharge Summary Discharge Summary DATE OF ADMISSION: Sep 09, 2019 at 10:59 pm DATE OF DISCHARGE: Sep 12, 2019 DISCHARGE DIAGNOSES: Major Depressive D/O recurrent severe w/o psychosis Situational anxiety REASON FOR ADMISSION: Patient is a 49 -year-old , female, with a history of depression and SA via OD 04/03/19 who self presented to the ED with her boyfriend states "it's getting harder lately" and her thoughts of harming herself are getting worse and she fears she may act on them. Per ED pt was tearful when seen in ED and reported increasing thoughts of SI for the past few months due to multiple psychosocial stressors including recent eviction (first time ever happened to her), living with a friend that doesn't like her causing her to feel as if she has no purpose. Pt endorsed poor sleep/appetite/concentration, helplessness/hopelessness, anhedonia, and anger in ED. She reported being compliant with her outpatient treatment and medications. Pt seen and states that she has been depressed with increasing suicidal thoughts that she trying not to act on but outpatient therapy isn't enough so came here for safety and help. Believes her symptoms are worse due to recent eviction from apt as she states she's never been evicted from home before and it causes her feelings of worthlessness. Agreeable to med adjustments to aid mood that were discussed regarding changing effexor sr to daily rather bid for improvement of insomnia, d/c klonopin and starting inderal 10mg tid with bp parameters, d/c lamictal as not helpful/on topomax/assoc high risk of SJS if not taken daily as directed. Is attending groups and finding helpful. Denies current HI, hallucinations, delusions. Feels safe here. Very pleasant and cooperative with seen. Appears depressed and constricted in affect. CONSULTANTS INVOLVED: none TREATMENT AND PROGRESS ON THE UNIT : Pt was admitted to [facility], seen for psychiatric assessment and restarted on her outpatient effexor xr changed to 300mg daily, amitriptyline 25mg qhs for seizures, topomax 200mg bid for seizures, and seroquel 400mg qhs. She was started on inderal 10mg tid for anxiety after her xanax was discontinued. She did not experience benzo withdrawal during her stay. She was provided trazodone 50mg qhs prn insomnia. Pt found her medications beneficial and tolerated them well. She attended groups daily during her stay. Her symptoms improved with treatment. On day of discharge she denied depression, anxiety, insomnia, SI/HI, hallucinations, delusions. She was discharged home with follow-up at [facility]. She felt safe for discharge. DISCHARGE ASSESSMENT: Pt seen and states that her mood is good and is looking forward to going home today and spending some time with her boyfriend who is supportive. States she slept well last night. Feels she is tolerating his medications and they're beneficial. She is attending groups and finding them helpful. She denies depression, anxiety, insomnia, SI/HI, hallucinations, delusions. Pt feels safe to be discharged home today. MENTAL STATUS EXAMINATION ON DISCHARGE: General Appearance: unkempt, appears stated age, own clothing Build: average Demeanor: average Eye Contact: average Activity: average Behavior: cooperative, other (pleasant) Speech: clear, spontaneous, normal volume, reg/rate,rhythm,volume Mood: euthymic, full Mood "good" Affect: euthymic, full, congruent Thought Process: logical/linear, intact Thought Content (Delusions): none reported, denies SI, HI, AVH Thought Content (Other): none reported, appropriate Thought Content (Aggressive): none reported Perception (Hallucinations): none reported Perception (Other): none reported Cognition (Impairment of): none reported Cognition(Intelligence Est.): average Oriented: Awake, Alert, Oriented times three Insight: good Judgment: good Psychosis: Denies MEDICATIONS ON DISCHARGE: effexor xr 300mg daily inderal 10mg tid topomax 200mg bid amitriptyline 25mg qhs seroquel 400mg qhs trazodone 50mg qhs prn insomnia PLAN/FOLLOWUP ARRANGEMENTS: D/c home with follow-up at [facility]. The amount of time spent in the coordination of care for this patient was approximately 30 minutes. Vital Signs/I&Os Vital Signs Date Time Temp Pulse Resp B/P (MAP) Pulse Ox O2 Delivery O2 Flow Rate FiO2 09/12/19 06:27 97.9 77 18 115/69 (84) Room Air 09/09/19 18:44 97 Laboratory Data Microbiology Microbiology 09/09/19 Urine Culture - Final, Complete Medications Scheduled Atorvastatin Calcium (Atorvastatin Calcium) 10 Mg Tablet, 10 MG PO DAILY, (Reported) Carisoprodol (Soma) 350 Mg Tablet, 350 MG PO QHS, (Reported) Clonazepam (Clonazepam) 1 Mg Tablet, 1 MG PO BID, (Reported) Ergocalciferol (Vitamin D2) (Vitamin D2) 50,000 Unit Capsule, 50,000 UNIT PO QWEEK, (Reported) SUNDAYS Lamotrigine (Lamotrigine) 100 Mg Tablet, 100 MG PO BID, (Reported) Levothyroxine Sodium (Levothyroxine Sodium) 100 Mcg Tablet, 100 MG PO DAILY, (Reported) Linaclotide (Linzess) 290 Mcg Capsule, 290 MCG PO DAILY, (Reported) Quetiapine Fumarate (Seroquel) 400 Mg Tablet, 400 MG PO QHS, (Reported) Topiramate (Topiramate) 200 Mg Tablet, 200 MG PO BID, (Reported) Trazodone HCl (Trazodone HCl) 300 Mg Tablet, 300 MG PO QHS, (Reported) Venlafaxine HCl (Venlafaxine HCl ER) 150 Mg Cap.er.24h, 150 MG PO BID, (Reported) Vitamin D (Vitamin D3) 1,000 Unit Tablet, 1,000 UNITS PO DAILY, (Reported) Scheduled PRN Albuterol Sulfate (Ventolin Hfa) 108 Mcg/Act Aer, 2 PUFFS INH QID PRN for SHORTNESS OF BREATH, (Reported) Carisoprodol (Soma) 350 Mg Tablet, 350 MG PO BID PRN for SPASMS, (Reported) Allergies Coded Allergies: Penicillins (Verified Allergy, Severe, anaphylactic shock, 01/16/19) Quinolones (Verified Allergy, Intermediate, cipro infusion site-> hives, and itching, 01/16/19) acetaminophen (Verified Allergy, Mild, rash, 01/16/19) aspirin (Verified Allergy, Mild, rash, 01/16/19) ibuprofen (Verified Allergy, Mild, rash, 01/16/19) doxycycline (Verified Allergy, Unknown, RASH/ITCHING, 09/09/19) ELMER MCKEON DO Sep 12, 2019 9:04 am
[2019-09-12] MEDS: TOPIRAMATE (TopAMAX) 100 MG TAB PO SCH (09:06)
[2019-09-12] MEDS: ATORVASTATIN 10 MG TAB PO SCH (09:06)
[2019-09-12] MEDS: VITAMIN D 1,000 INTERNATIONAL UNITS TABLET PO SCH (09:07)
[2019-09-12] MEDS: VENLAFAXINE **XR** 75MG CAPSULE PO SCH (09:07)
[2019-09-12] MEDS ORDERED: VIST50CA PO (09:22)
[2019-09-14] MEDS ORDERED: VITAMIN D 50,000 UNITS CAPSULE (ERGOCALCIFEROL 1.25MG) PO SCH (09:00)
== END 2019-09-12 11:20 | disposition home or self-care (01) | DRG 885 ==
LOC: M ED 15:42 → M ED INP 22:59 → M PSY 09-10 00:07
PROVIDERS: ADMIT Psychiatry & Neurology Psychiatry; ATTEND Psychiatry & Neurology Psychiatry
DX: F33.2 Major depressive disorder, recurrent severe without psychotic features (principal); G40.89 Other seizures; L03.222 Acute lymphangitis of neck; F40.248 Other situational type phobia; Z60.9 Problem related to social environment, unspecified; Z59.1 Inadequate housing; Z59.2 Discord with neighbors, lodgers and landlord; J44.9 Chronic obstructive pulmonary disease, unspecified; Z90.49 Acquired absence of other specified parts of digestive tract; F10.21 Alcohol dependence, in remission; F17.210 Nicotine dependence, cigarettes, uncomplicated; Z62.810 Personal history of physical and sexual abuse in childhood; Z62.811 Personal history of psychological abuse in childhood; Z79.899 Other long term (current) drug therapy; Z88.0 Allergy status to penicillin; Z88.1 Allergy status to other antibiotic agents; Z88.6 Allergy status to analgesic agent; Z88.8 Allergy status to other drugs, medicaments and biological substances; T36.95XA Adverse effect of unspecified systemic antibiotic, initial encounter; L27.0 Generalized skin eruption due to drugs and medicaments taken internally; Z91.5 Personal history of self-harm; F41.9 Anxiety disorder, unspecified; F43.10 Post-traumatic stress disorder, unspecified; E78.5 Hyperlipidemia, unspecified; E03.9 Hypothyroidism, unspecified; I10 Essential (primary) hypertension; G43.909 Migraine, unspecified, not intractable, without status migrainosus; K22.2 Esophageal obstruction; Z79.51 Long term (current) use of inhaled steroids

== ENCOUNTER → 2019-09-19 | Outpatient (CLI) | payer OTHER ==
[~2019-09-19] MED LIST changes: +ALPR0.5T3 PO; +ATOR1TAB19 PO; +CHOL100029 PO; +CLON1TAB8 PO; +EFFE150C2 PO; +PROP10TA56 PO; +VIST50CA PO; +VITA50005 PO; +marajuana
[2019-09-19 09:44] LABS: CHOLESTEROL RISK RATIO 2.032 (<5); FREE T4 1.27 NG/DL (0.76-1.46); THYROID STIMULATING HORMONE 0.093 uIU/ML (0.358-3.740)
== END ==
LOC: M LAB 08:23
PROVIDERS: ATTEND Nurse Practitioner Family
DX: E03.9 Hypothyroidism, unspecified (principal); E78.5 Hyperlipidemia, unspecified; R63.4 Abnormal weight loss; K30 Functional dyspepsia

== ENCOUNTER → 2019-09-19 | Outpatient (CLI) | payer OTHER ==
[2019-09-24 00:06] LABS: CHROMOGRANIN A 4 nmol/L (0-5); GASTRIN 148 pg/mL (0-115)
== END ==
LOC: M LAB 08:20
PROVIDERS: ATTEND Physician Assistant Medical
DX: R63.4 Abnormal weight loss (principal); K30 Functional dyspepsia

== ENCOUNTER → 2019-10-09 | Outpatient (CLI) | payer OTHER ==
[~2019-10-09] MED LIST changes: +COMMENTS; +SYNT88TA2 PO
[2019-10-12 00:06] LABS: ANTI-PARIETAL CELL ANTIBODY 1.5 Units (0.0-20.0)
== END ==
LOC: M LAB 10:32
PROVIDERS: ATTEND Physician Assistant Medical
DX: R63.4 Abnormal weight loss (principal); K30 Functional dyspepsia

== ENCOUNTER 2019-10-12 16:00 | Observation (INO) | payer OTHER ==
[~2019-10-12] VITALS: Ht 160 cm; Wt 57.6 kg
[~2019-10-12 16:00] MED LIST changes: -COMMENTS; -SYNT88TA2 PO
[2019-10-12] MEDS ORDERED: NS 1,000 ML IV ONE ×2 (16:15→23:15)
[2019-10-12 16:26] LABS: HEMATOCRIT 39.8 % (36.0-47.0); MEAN CORPUSCULAR HEMOGLOBIN 31.3 pg (27.0-33.0); MEAN CORPUSCULAR HGB CONC 32.7 g/dl (32.0-36.5); MEAN CORPUSCULAR VOLUME 95.7 fl (80.0-96.0); PLATELET COUNT, AUTOMATED 239 10^3/uL (150-450); RED BLOOD COUNT 4.16 10^6/uL (4.00-5.40); WHITE BLOOD COUNT 7.5 10^3/uL (4.0-10.0)
[2019-10-12 16:50] LABS: HCG, SERUM QUALITATIVE NEGATIVE (NEGATIVE)
[2019-10-12 16:59] LABS: ACETAMINOPHEN LEVEL < 2.0 UG/ML (10.0-30.0); ALBUMIN 2.9 GM/DL (3.2-5.2); ALT/SGPT 48 U/L (12-78); BILIRUBIN,DIRECT 0.1 MG/DL (0.0-0.2); BILIRUBIN,TOTAL 0.4 MG/DL (0.2-1.0); BLOOD UREA NITROGEN 16 MG/DL (7-18); CALCIUM LEVEL 9.4 MG/DL (8.5-10.1); CARBON DIOXIDE LEVEL 24 MEQ/L (21-32); CHLORIDE LEVEL 102 MEQ/L (98-107); ETHYL ALCOHOL (ETHANOL) < 0.003 % (0.000-0.010); GLOMERULAR FILTRATION RATE > 60.0 (>51); GLUCOSE, FASTING 111 MG/DL (70-100); SALICYLATE LEVEL 4.2 MG/DL (5.0-30.0); SODIUM LEVEL 137 MEQ/L (136-145); THYROID STIMULATING HORMONE 0.955 uIU/ML (0.358-3.740); TOTAL PROTEIN 7.3 GM/DL (6.4-8.2)
[2019-10-12] MEDS ORDERED: POTASSIUM CHLORIDE 10 MEQ SR TABLET PO ONE (17:30)
[2019-10-12] MEDS ORDERED: LIDOCAINE 2% 5ML JELLY UROJET TOP ONE (17:30)
[2019-10-12] MEDS ORDERED: VENL150C43 PO (18:42)
[2019-10-12] MEDS ORDERED: SYNT88TA2 PO (18:42)
[2019-10-12] MEDS ORDERED: VITA100066 PO (18:42)
[2019-10-12] MEDS ORDERED: TOPI200T7 PO (18:42)
[2019-10-12] MEDS ORDERED: SERO400T PO (18:42)
[2019-10-12] MEDS ORDERED: TRAZ300T2 PO (18:42)
[2019-10-12] MEDS ORDERED: AMIT25TA PO (18:43)
[2019-10-12] MEDS ORDERED: COMMENTS (18:45)
[2019-10-12] MEDS ORDERED: CLON1TAB8 PO (18:45)
[2019-10-12] MEDS ORDERED: LAMO100T80 PO (18:45)
[2019-10-12 21:53] LABS: AMPHETAMINES LEVEL URINE NEGATIVE (NEGATIVE); BARBITURATES URINE NEGATIVE (NEGATIVE); BENZODIAZEPINES URINE POSITIVE (NEGATIVE); CANNABINOIDS URINE POSITIVE (NEGATIVE); COCAINE METABOLITE URINE NEGATIVE (NEGATIVE); METHADONE URINE NEGATIVE (NEGATIVE); OPIATES URINE NEGATIVE (NEGATIVE); PHENCYCLIDINE URINE NEGATIVE (NEGATIVE)
[2019-10-13] MEDS ORDERED: POTASSIUM CHLORIDE 10 MEQ SR TABLET PO ONE (01:15)
--- NOTE | 2019-10-13 02:40 | HPEPDOC ---
[facility] Medical History & Physical Date of Admission Oct 13, 2019 Date of Service: Oct 13, 2019 Attending Physician: VALE GREEN MD History and Physical CHIEF COMPLAINT: Drug overdose HISTORY OF PRESENT ILLNESS: 49-year-old female with past medical history of bipolar depression, seizure disorder, hypothyroidism and hyperlipidemia presents after overdosing on benzodiazepines. Patient seen in bed, sleepy but easily arousable, denies overdosing on any medication. She reports taking her normal d aily medication. She does report worsening social situation, she was evicted and lives with 5 other people at this time and reports that she's had enough. She has no other complaints at this time, denies any shortness of breath, chest pain, nausea, vomiting, abdominal pain or diarrhea. 10 point review of system is negative except for above PAST MEDICAL HISTORY: 1. Bipolar depression. 2. Hypothyroidism. 3. Hyperlipidemia. 4. Seizure disorder PAST SURGICAL HISTORY: 1. 2. 2. Cholecystectomy.. SOCIAL HISTORY: Smokes half pack per day, has been smoking for over 30 years Denies alcohol use. Denies drug use FAMILY HISTORY: Unknown, patient adopted ALLERGIES: Please see below. HOME MEDICATIONS: Please see below. PHYSICAL EXAMINATION: VITAL SIGNS: Please see below. GENERAL: No distress HEENT: Normocephalic, atraumatic, moist mucous membranes NECK: Supple CARDIOVASCULAR EXAMINATION: S1, S2, no murmurs RESPIRATORY EXAMINATION: Clear to auscultation, no wheezing ABDOMINAL EXAMINATION: Soft, nontender, nondistended, positive bowel sounds EXTREMITIES: Range of motion intact SKIN: No rash NEUROLOGICAL EXAMINATION: Alert and oriented 3, no focal deficits PSYCHIATRIC EXAMINATION: Calm and cooperative LABORATORY DATA: See below. MICROBIOLOGY: Please see below. ASSESSMENT: 49-year-old female with past medical history of bipolar depression, hyperlipidemia and hypothyroidism is being admitted for overdosing on benzodiazepines. PLAN: 1. Medication overdose. Overdose on benzodiazepines, patient denying, clinically, patient does not appear to have overdosed on a significant amount as she does not have any respiratory depression and is easily arousable, will monitor, consult psychiatry in the morning for possible transfer to inpatient mental health unit. One-to-one monitoring 2. Bipolar depression. Continue home meds 3. Hyperlipidemia. Continue statin 4. Hypothyroidism. Continue levothyroxine 5. Seizure disorder. Continue Lamictal DVT prophylaxis: TEDs GI prophylaxis: Not needed Vital Signs Vital Signs Date Time Temp Pulse Resp B/P (MAP) Pulse Ox O2 Delivery O2 Flow Rate FiO2 10/13/19 01:10 97.5 10/13/19 01:01 60 115/80 (92) 96 10/12/19 23:46 18 Room Air Laboratory Data Labs 24H Laboratory Tests 2 10/12/19 16:16: Nucleated Red Blood Cells % (auto) 0.0, Anion Gap 11, Glomerular Filtration Rate > 60.0, Calcium Level 9.4, Total Bilirubin 0.4, Direct Bilirubin 0.1, Aspartate Amino Transf (AST/SGOT) 54H, Alanine Aminotransferase (ALT/SGPT) 48, Alkaline Phosphatase 130H, Total Protein 7.3, Albumin 2.9L, Albumin/Globulin Ratio 0.66L, Thyroid Stimulating Hormone (TSH) 0.955, Human Chorionic Gonadotropin, Qual N EGATIVE, Salicylates Level 4.2L, Acetaminophen Level < 2.0L, Ethyl Alcohol Level < 0.003 10/12/19 20:59: Urine Opiates Screen NEGATIVE, Urine Methadone Screen NEGATIVE, Urine Bar biturates Screen NEGATIVE, Urine Phencyclidine Screen NEGATIVE, Urine Amphetamines Screen NEGATIVE, Urine Benzodiazepines Screen POSITIVEH, Urine Cocaine Metabolite Screen NEGATIVE, Urine Cannabinoids Screen POSITIVEH CBC/BMP Laboratory Tests 10/12/19 16:16 Home Medications Scheduled Amitriptyline HCl (Amitriptyline HCl) 25 Mg Tablet, 25 MG PO QHS Atorvastatin Calcium (Atorvastatin Calcium) 10 Mg Tablet, 10 MG PO DAILY Cholecalciferol (Vitamin D3) (Vitamin D3) 1,000 Unit Tablet, 1,000 UNIT PO DAILY Lamotrigine (Lamotrigine) 100 Mg Tablet, 100 MG PO BID Levothyroxine Sodium (Synthroid) 88 Mcg Tablet, 88 MCG PO DAILY Linaclotide (Linzess) 290 Mcg Capsule, 290 MCG PO DAILY Quetiapine Fumarate (Seroquel) 400 Mg Tablet, 400 MG PO QHS Topiramate (Topiramate) 200 Mg Tablet, 200 MG PO BID Trazodone HCl (Trazodone HCl) 300 Mg Tablet, 300 MG PO QHS Venlafaxine HCl (Venlafaxine HCl ER) 150 Mg Cap.er.24h, 150 MG PO BID Scheduled PRN Albuterol Sulfate (Ventolin Hfa) 108 Mcg/Act Aer, 2 PUFFS INH QID PRN for SHORTNESS OF BREATH Carisoprodol (Soma) 350 Mg Tablet, 350 MG PO TID PRN for SPASMS Clonazepam (Clonazepam) 1 Mg Tablet, 1 MG PO TID PRN for ANXIETY Miscellaneous Medications [Comments] MED REC COMPILED WITH EXTERNAL MED HISTORY AND PREPACKED [facility] MEDICATIONS Allergies Coded Allergies: Penicillins (Verified Allergy, Severe, anaphylactic shock, 01/16/19) Quinolones (Verified Allergy, Intermediate, cipro infusion site-> hives, and itching, 01/16/19) acetaminophen (Verified Allergy, Mild, rash, 01/16/19) aspirin (Verified Allergy, Mild, rash, 01/16/19) ibuprofen (Verified Allergy, Mild, rash, 01/16/19) doxycycline (Verified Allergy, Unknown, RASH/ITCHING, 09/09/19) A-FIB/CHADSVASC A-FIB History Current/History of A-Fib/PAF?: No VALE GREEN MD Oct 13, 2019 02:40
[2019-10-13] MEDS ORDERED: LEVOTHYROXINE 88MCG TABLET (0.088 MG) PO SCH (06:00)
[2019-10-13 08:15] LABS: HEMATOCRIT 36.3 % (36.0-47.0); HEMOGLOBIN 11.8 g/dl (12.0-15.5); MEAN CORPUSCULAR HEMOGLOBIN 31.2 pg (27.0-33.0); MEAN CORPUSCULAR HGB CONC 32.5 g/dl (32.0-36.5); PLATELET COUNT, AUTOMATED 232 10^3/uL (150-450); RED BLOOD COUNT 3.78 10^6/uL (4.00-5.40); WHITE BLOOD COUNT 6.6 10^3/uL (4.0-10.0)
[2019-10-13 08:47] LABS: BLOOD UREA NITROGEN 11 MG/DL (7-18); CALCIUM LEVEL 8.5 MG/DL (8.5-10.1); CARBON DIOXIDE LEVEL 22 MEQ/L (21-32); CHLORIDE LEVEL 112 MEQ/L (98-107); CREATININE FOR GFR 0.61 MG/DL (0.55-1.30); GLOMERULAR FILTRATION RATE > 60.0 (>51); GLUCOSE, FASTING 65 MG/DL (70-100); POTASSIUM SERUM 3.1 MEQ/L (3.5-5.1); SODIUM LEVEL 144 MEQ/L (136-145)
[2019-10-13 08:48] LABS: ALBUMIN 2.3 GM/DL (3.2-5.2); ALT/SGPT 35 U/L (12-78); BILIRUBIN,TOTAL 0.3 MG/DL (0.2-1.0); MAGNESIUM LEVEL 2.1 MG/DL (1.8-2.4); PHOSPHORUS LEVEL 2.6 MG/DL (2.5-4.9); TOTAL PROTEIN 6.9 GM/DL (6.4-8.2)
[2019-10-13] MEDS ORDERED: VITAMIN D 1,000 INTERNATIONAL UNITS TABLET PO SCH (09:00)
[2019-10-13] MEDS ORDERED: ATORVASTATIN 10 MG TAB PO SCH (09:00)
[2019-10-13] MEDS ORDERED: lamoTRIgine 100MG TAB PO SCH (09:00)
[2019-10-13] MEDS ORDERED: VENLAFAXINE **XR** 75MG CAPSULE PO SCH (09:00)
[2019-10-13] MEDS ORDERED: TOPIRAMATE (TopAMAX) 100 MG TAB PO SCH (09:00)
[2019-10-13 09:15] VITALS: BP 117/58
--- NOTE | 2019-10-13 10:06 | IPN ---
DATE OF SERVICE: 10/13/2019 Sara was seen with what sounds like an intentional overdose of benzodiazepine. She says she accidentally took more than she expected to and was sedated. She has not been seen by psychiatry yet. She has some hyponatremia which has been addressed already today. She has history of hypothyroidism, hyperlipidemia and psychiatric illness. PHYSICAL EXAMINATION: Afebrile. Vital signs stable. General Appearance: Alert, conversant, in no distress. Answers appropriate and goal directed. HEENT: Unremarkable. Lungs: Clear. Heart: Regular without murmur. Abdomen: Soft. No masses. No peripheral edema. IMPRESSION: 1. Overdose of benzodiazepine, sounds unintentional. Plan was for psychiatry to see her and then depending on their determination of intent, either discharge home or IM. Will defer to their expertise on this. Dr. Izaguirre is tensioning machine operator today and consultation has been placed.
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
--- NOTE | 2019-10-13 11:33 | DSES ---
DATE OF ADMISSION: 10/12/2019 DATE OF DISCHARGE: 10/13/2019 PRINCIPAL DIAGNOSIS: Unintentional overdose of Klonopin. HISTORY: Sara Chavarria was admitted after she had taken an excess number of her Klonopin. She said she did this by mistake and was not suicidal gesture or attempt at self harm. She said she "mixed up her medicine dose." HOSPITAL COURSE: She was admitted to a floor bed. By the time I saw her on morning rounds she was alert, conversant and had no lethargy or sedation whatsoever. She was seen by psychiatry in consultation who did not feel that she did this intentionally or was at increased risk of self harm. He provided her with information on outpatient followup at [facility] for benzodiazepine overuse disorder. The patient is discharged in stable condition. No changes in her outpatient medicines. She will continue at her previous doses. She was cautioned about excessive dosing of her Klonopin. She will followup with her primary care provider and is given information and followup with Behavioral Health. Diet and activity as tolerated.
[2019-10-13] MEDS ORDERED: AMITRIPTYLINE 25 MG TAB PO SCH (21:00)
[2019-10-13] MEDS ORDERED: QUEtiapine FUMARATE 200 MG TAB PO SCH (21:00)
[2019-10-13] MEDS ORDERED: traZODone 100 MG TAB PO SCH (21:00)
== END 2019-10-13 13:41 | disposition home or self-care (01) ==
LOC: EDBD 16:00 → M ED 23:21 → M ED INP 23:22 → M MSPAV 10-13 09:16
PROVIDERS: ADMIT Internal Medicine; ATTEND Internal Medicine
DX: T42.4X1A Poisoning by benzodiazepines, accidental (unintentional), initial encounter (principal); R53.83 Other fatigue; E87.1 Hypo-osmolality and hyponatremia; F13.10 Sedative, hypnotic or anxiolytic abuse, uncomplicated; Z62.810 Personal history of physical and sexual abuse in childhood; F31.9 Bipolar disorder, unspecified; E03.9 Hypothyroidism, unspecified; E78.5 Hyperlipidemia, unspecified; G40.909 Epilepsy, unspecified, not intractable, without status epilepticus; F10.11 Alcohol abuse, in remission; F17.201 Nicotine dependence, unspecified, in remission; F12.90 Cannabis use, unspecified, uncomplicated; Z79.899 Other long term (current) drug therapy; Z88.6 Allergy status to analgesic agent; Z88.0 Allergy status to penicillin; Z88.1 Allergy status to other antibiotic agents
CPT/HCPCS: 36415; 80048; 80053; 80076; 80307; 83735; 84100; 84443; 84703; 85027; 96360; 96361; 99285; G0378; G0480; P9612

== ENCOUNTER → 2019-12-03 | Outpatient (CLI) | payer MEDICARE ==
[~2019-12-03] MED LIST changes: +COMMENTS; +QUET100T2 PO; -QUET1TAB8 PO; +SYNT88TA2 PO; +ZONI100C17 PO; -ZONI100C2 PO
[2019-12-03 13:41] LABS: CHOLESTEROL RISK RATIO 2.404 (<5); FREE T4 1.43 NG/DL (0.76-1.46); THYROID STIMULATING HORMONE 0.395 uIU/ML (0.358-3.740)
== END ==
LOC: M LAB 11:42
PROVIDERS: ATTEND Nurse Practitioner Family
DX: E03.9 Hypothyroidism, unspecified (principal); E78.5 Hyperlipidemia, unspecified

== ENCOUNTER 2020-01-08 10:33 | Inpatient (IN) | payer MEDICARE ==
[~2020-01-08] VITALS: Ht 160 cm; Wt 58.5 kg
[2020-01-08] MEDS ORDERED: PRAZ1CAP PO (10:55)
[2020-01-08] MEDS ORDERED: SUMA6KIT SC (10:55)
[2020-01-08] MEDS ORDERED: TRAZ150T90 PO (10:55)
[2020-01-08] MEDS ORDERED: QUET100T2 PO (10:55)
[2020-01-08] MEDS ORDERED: QUET400T PO (10:55)
[2020-01-08 11:07] LABS: VENOUS BASE EXCESS -5.7 (-2.0-2.0); VENOUS HCO3 21.6 MEQ/L (23.0-27.0); VENOUS O2 SATURATION 53.4 % (60.0-80.0); VENOUS PARTIAL PRESSURE CO2 48.8 mmHg (38.0-50.0); VENOUS PARTIAL PRESSURE O2 29.9 mmHg (30.0-50.0); VENOUS PH 7.264 UNITS (7.330-7.430); VENOUS STANDARD HCO3 18.8 MEQ/L; VENOUS TOTAL CO2 23.1 MEQ/L (24.0-28.0)
[2020-01-08 11:09] LABS: BASO # 0.1 10^3/uL (0.0-0.2); BASO % 1.3 % (0.0-1.0); EOS # 0.1 10^3/uL (0.0-0.5); EOS % 0.8 % (0.0-3.0); HEMATOCRIT 46.7 % (36.0-47.0); LYMPH # 3.3 10^3/uL (1.5-5.0); LYMPH % 35.6 % (24.0-44.0); MEAN CORPUSCULAR HEMOGLOBIN 31.1 pg (27.0-33.0); MEAN CORPUSCULAR HGB CONC 32.1 g/dl (32.0-36.5); MEAN CORPUSCULAR VOLUME 96.9 fl (80.0-96.0); MONO # 0.5 10^3/uL (0.0-0.8); MONO % 5.6 % (0.0-5.0); NEUTROPHILS # 5.2 10^3/uL (1.5-8.5); NEUTROPHILS % 56.5 % (36.0-66.0); PLATELET COUNT, AUTOMATED 264 10^3/uL (150-450); RED BLOOD COUNT 4.82 10^6/uL (4.00-5.40); WHITE BLOOD COUNT 9.2 10^3/uL (4.0-10.0)
[2020-01-08] MEDS ORDERED: NS 1,000 ML IV ONE (11:15)
[2020-01-08 11:42] LABS: AMPHETAMINES LEVEL URINE NEGATIVE (NEGATIVE); BARBITURATES URINE NEGATIVE (NEGATIVE); BENZODIAZEPINES URINE POSITIVE (NEGATIVE); CANNABINOIDS URINE POSITIVE (NEGATIVE); COCAINE METABOLITE URINE POSITIVE (NEGATIVE); METHADONE URINE NEGATIVE (NEGATIVE); OPIATES URINE NEGATIVE (NEGATIVE); PHENCYCLIDINE URINE NEGATIVE (NEGATIVE)
[2020-01-08 11:42] LABS: OSMOLALITY SERUM 294 MOSM/KG (275-295)
[2020-01-08 11:50] LABS: HCG, SERUM QUALITATIVE NEGATIVE (NEGATIVE)
[2020-01-08 12:02] LABS: ACETAMINOPHEN LEVEL < 2.0 UG/ML (10.0-30.0); ALT/SGPT 19 U/L (12-78); BILIRUBIN,DIRECT < 0.1 MG/DL (0.0-0.2); BILIRUBIN,TOTAL 0.4 MG/DL (0.2-1.0); BLOOD UREA NITROGEN 13 MG/DL (7-18); CALCIUM LEVEL 9.8 MG/DL (8.5-10.1); CARBON DIOXIDE LEVEL 25 MEQ/L (21-32); CHLORIDE LEVEL 106 MEQ/L (98-107); CK-MB VALUE MASS < 1.0 NG/ML (<3.6); CPK CREATINE PHOSPHOKINASE 165 U/L (26-192); CREATININE FOR GFR 0.82 MG/DL (0.55-1.30); ETHYL ALCOHOL (ETHANOL) < 0.003 % (0.000-0.010); GLOMERULAR FILTRATION RATE > 60.0 (>51); GLUCOSE, FASTING 66 MG/DL (70-100); MB/CK RELATIVE INDEX 0.61 (< OR =4); POTASSIUM SERUM 5.1 MEQ/L (3.5-5.1); SALICYLATE LEVEL 3.7 MG/DL (5.0-30.0); SODIUM LEVEL 139 MEQ/L (136-145); TOTAL PROTEIN 8.3 GM/DL (6.4-8.2); TROPONIN I < 0.02 NG/ML (< 0.10)
--- NOTE | 2020-01-08 12:43 | REP ---
CT STUDY OF THE BRAIN WITHOUT CONTRAST: HISTORY: Altered mental status. Comparison head CT study January 03, 2019. CT FINDINGS: Preliminary digital inventory specialist manager radiograph is unremarkable. On bone window settings, the bony calvarium is intact. There is moderate vascular calcification in the distal internal carotid arteries bilaterally. The visualized paranasal sinuses are clear. No intraorbital abnormality is seen. On soft tissue window settings, lateral, third, fourth ventricles are normal in size and position. Nevarez/white differentiation pattern is normal above below the tentorium. There is no evidence of intracranial hemorrhage or infarction. No mass or extra-axial fluid collection is seen. IMPRESSION: No acute intracranial abnormality. Vascular calcification is again noted. Otherwise negative. Electronically Signed by Marty Kramer MD 01/08/2020 12:56 P
[2020-01-08] MEDS ORDERED: VITA50005 PO (15:03)
[2020-01-08] MEDS ORDERED: medical marijuana INH (15:10)
[2020-01-08] MEDS ORDERED: VITAD1000T PO (15:18)
[2020-01-08] MEDS ORDERED: TOPI200T7 PO (15:18)
[2020-01-08 16:00] VITALS: BP 99/67
[2020-01-08] MEDS ORDERED: clonazePAM 1 MG TAB PO PRN (16:00)
--- NOTE | 2020-01-08 16:03 | HPEPDOC ---
General Date of Admission Jan 08, 2020 at 14:24 Date of Service: Jan 08, 2020 Chief Complaint The patient is a 49-year-old female Who presented to the emergency room after reporting thoughts of self-harm to her counselor History of Present Illness Patient is a 49-year-old female with a PMHx of Hypothyroidism, DLP, Seizure disorder, Migraine headaches, Bipolar disorder, GERD who was brought into the emergency room by EMS after she had made a statement of self-harm during her healthcare psychiatric appointment. While at the appointment patient was dozing off and almost falling out of chair. It was reported the patient was very confused and groggy. Upper arrival to ER, patient was sleeping. . There is a suspicion that patient have consumed 4 additional tablets of her Carisoprodol. Poison control was contacted and recommended observation for the next 24 hours. . Hospitalist se jerome was contacted for further evaluation and management. Currently, patient is awake and alert. She adamantly denies any suicidal or homicidal ideation at this time. Is unsure why she is missing tablets. When asking the patient about how she had arrived to the hospital she is unclear of her recent history. Patient has denied any active headache, nausea, vomiting, chest pain, and shortness of breath, palpitations, vomiting, constipation, diarrhea, urinary discomfort or any recent fever/chills. Patient has reported low appetite and has reported weight loss that is reportedly being worked up by her primary care provider. Home Medications Scheduled Amitriptyline HCl (Amitriptyline HCl) 25 Mg Tablet, 25 MG PO QHS, (Reported) Atorvastatin Calcium (Atorvastatin Calcium) 10 Mg Tablet, 10 MG PO DAILY, (Rep orted) Cholecalciferol (Vitamin D3) (Vitamin D3) 1,000 Unit Tablet, 1,000 UNITS PO DAILY, (Reported) Ergocalciferol (Vitamin D2) (Vitamin D2) 50,000 Units Cap, 50,000 UNITS PO QWEEK, (Reported) sunday Lamotrigine (Lamotrigine) 100 Mg Tablet, 100 MG PO BID, (Reported) Levothyroxine Sodium (Synthroid) 88 Mcg Tablet, 88 MCG PO DAILY, (Reported) Linaclotide (Linzess) 290 Mcg Capsule, 290 MCG PO DAILY, (Reported) Quetiapine Fumarate (Quetiapine Fumarate) 100 Mg Tablet, 100 MG PO QHS, (Reported) total 500mgs Quetiapine Fumarate (Quetiapine Fumarate) 400 Mg Tablet, 400 MG PO QHS, (Reported) total 500mgs Topiramate (Topiramate) 200 Mg Tablet, 200 MG PO BID, (Reported) Venlafaxine HCl (Venlafaxine HCl ER) 150 Mg Cap.er.24h, 300 MG PO QAM, (Reported) Scheduled PRN Albuterol Sulfate (Ventolin Hfa) 108 Mcg/Act Aer, 2 PUFFS INH QID PRN for SHORTNESS OF BREATH, (Reported) Carisoprodol (Soma) 350 Mg Tablet, 350 MG PO TID PRN for SPASMS, (Reported) Clonazepam (Clonazepam) 1 Mg Tablet, 1 MG PO TID PRN for ANXIETY, (Reported) Sumatriptan Succinate (Sumatriptan Succinate) 6 Mg/0.5 Ml Cartridge, 0.5 ML SC ASDIRECTED PRN for MIGRAINE, (Reported) [medical marijuana] , 1 DOSE INH for MIGRAINE, (Reported) Allergies Coded Allergies: Penicillins (Verified Allergy, Severe, anaphylactic shock, 01/16/19) Quinolones (Verified Allergy, Intermediate, cipro infusion site-> hives, and itching, 01/16/19) acetaminophen (Verified Allergy, Intermediate, rash, 01/08/20) aspirin (Verified Allergy, Intermediate, rash, 01/08/20) doxycycline (Verified Allergy, Intermediate, RASH/ITCHING, 01/08/20) ibuprofen (Verified Allergy, Intermediate, rash, 01/08/20) prazosin (Verified Adverse Reaction, Mild, lowers bp, 01/08/20) Past Medical History Medical History Hypothyroidism, DLP, Seizure disorder, Migraine headaches, Bipolar disorder, GERD Surgical History x2 Cholecystectomy Dilation and Curettage Family History - Patient is adopted and is on sure of her family history Social History - Patient reports she is an active smoker for greater than 30 years at 0.5 PPD. She denies any alcohol use. She only attest to using marijuana. However, her urine drug screen has been positive for benzos, cocaine, cannabinoids - Denies recent travel or sick contacts Review of Systems Other systems 10 point review of systems complete, all negative otherwise stated in HPI Vital Signs - Vitals: BP 110/67, HR 68, RR 16, Sat 100%RA, Temp 97.8F - General: Lying in bed, Speaking in full sentences, AAOx3 - HEENT: NC, AT, PERRLA, EOMI - CVS: RRR, +S1S2 - Lungs: Fair air entry bilaterally, No appreciable wheezing / rales / rhonchi - Abdomen: Soft, Non-distended, Non-tender - Extremities: No lower extremity edema, No calf tenderness - Neuro: No focal motor or sensory deficit - Skin: No visible rashes Laboratory Data Labs 24H Laboratory Tests 2 01/08/20 10:56: Immature Granulocyte % (Auto) 0.2, Neutrophils (%) (Auto) 56.5, Lymphocytes (%) (Auto) 35.6, Monocytes (%) (Auto) 5.6H, Eosinophils (%) (Auto) 0.8, Basophils (%) (Auto) 1.3H, Neutrophils # (Auto) 5.2, Lymphocytes # (Auto) 3.3, Monocytes # (Auto) 0.5, Eosinophils # (Auto) 0.1, Basophils # (Auto) 0.1, Nucleated Red Blood Cells % (auto) 0.0, Blood Gas Bicarbonate Standard 18.8, Venous Blood pH 7.264L, Venous Blood Partial Pressure CO2 48.8, Venous Blood Partial Pressure O2 29.9L, Venous Blood Total Carbon Dioxide 23.1L, Venous Blood HCO3 21.6L, Venous Blood Oxygen Saturation 53.4L, Venous Blood Base Excess -5.7L, Anion Gap 8, Glomerular Filtration Rate > 60.0, Osmolality 294, Calcium Level 9.8, Total Bilirubin 0.4, Direct Bilirubin < 0.1, Aspartate Amino Transf (AST/SGOT) 23, Alanine Aminotransferase (ALT/SGPT) 19, Alkaline Phosphatase 87, Ammonia 26, Total Creatine Kinase 165, Creatine Kinase MB < 1.0, Creatine Kinase MB Relative Index 0.61, Troponin I < 0.02, Total Protein 8.3H, Albumin 4.0, Albumin/Globulin Ratio 0.93L, Thyroid Stimulating Hormone (TSH) 4.920H, Human Chorionic Go nadotropin, Qual NEGATIVE, Salicylates Level 3.7L, Acetaminophen Level < 2.0L, Ethyl Alcohol Level < 0.003 01/08/20 11:10: Urine Opiates Screen NEGATIVE, Urine Methadone Screen NEGATIVE, Urine Barbiturates Screen NEGATIVE, Urine Phencyclidine Screen NEGATIVE, Urine Amphetamines Screen NEGATIVE, Urine Benzodiazepines Screen POSITIVEH, Urine Cocaine Metabolite Screen POSITIVEH, Urine Cannabinoids Screen POSITIVEH CBC/BMP Laboratory Tests 01/08/20 10:56 Plan / VTE VTE Prophylaxis Ordered?: Yes Plan Plan Suicidal ideation / Accidental overdose - s/p Acute toxic encephalopathy - Currently is oriented to person / place / time - No focal motor deficits - CT head 01/05: No acute intracranial abnormality. Vascular calcification is again noted. Otherwise negative. - Poison control contacted - Will continue with observation / telemetry monitoring / continuous pulse oximetry - Will contact psychiatry once medially cleared; possibly transition [facility] Hypothyroidism - c/w Levothyroxine DLP - c/w Atorvastatin Migraine headaches / Seizure disorder - c/w Topiramate - c/w Tylenol PRN Bipolar disorder / Depression / Anxiety - c/w Venlafaxine, Quetiapine, Amitriptyline and Alprazolam PRN GERD - Currently not on any medications DVT prophylaxis - Will start Heparin AZAM COOK MD Jan 08, 2020 16:03
[2020-01-08] MEDS ORDERED: SLF 3 ML SYR IV PRN (17:00)
[2020-01-08] MEDS: HEPARIN SOD (PORCINE) 5000 UNITS/ML VIAL (J1644 PER 1000UNITS) SC SCH ×2 (18:02→20:37)
[2020-01-08 20:00] VITALS: BP 116/72
[2020-01-08] MEDS: lamoTRIgine 100MG TAB PO SCH (20:41)
[2020-01-08] MEDS: TOPIRAMATE (TopAMAX) 100 MG TAB PO SCH (20:41)
[2020-01-08] MEDS: SLF 3 ML SYR IV SCH (20:42)
[2020-01-08] MEDS ORDERED: AMITRIPTYLINE 25 MG TAB PO SCH (21:00)
[2020-01-08] MEDS ORDERED: QUEtiapine FUMARATE 200 MG TAB PO SCH (21:00)
[2020-01-08] MEDS ORDERED: QUEtiapine FUMARATE 100 MG TAB PO SCH (21:00)
[2020-01-09] VITALS: BP 96/72
[2020-01-09 04:00] VITALS: BP 105/61
[2020-01-09] MEDS: HEPARIN SOD (PORCINE) 5000 UNITS/ML VIAL (J1644 PER 1000UNITS) SC SCH (05:57)
[2020-01-09] MEDS: SLF 3 ML SYR IV SCH (05:58)
[2020-01-09] MEDS ORDERED: LEVOTHYROXINE 88MCG TABLET (0.088 MG) PO SCH (06:00)
[2020-01-09 06:07] LABS: BASO # 0.1 10^3/uL (0.0-0.2); BASO % 0.8 % (0.0-1.0); EOS % 0.3 % (0.0-3.0); HEMATOCRIT 39.5 % (36.0-47.0); LYMPH # 1.8 10^3/uL (1.5-5.0); LYMPH % 23.6 % (24.0-44.0); MEAN CORPUSCULAR HGB CONC 32.7 g/dl (32.0-36.5); MONO # 0.4 10^3/uL (0.0-0.8); MONO % 4.8 % (0.0-5.0); NEUTROPHILS # 5.3 10^3/uL (1.5-8.5); NEUTROPHILS % 70.2 % (36.0-66.0); PLATELET COUNT, AUTOMATED 208 10^3/uL (150-450); RED BLOOD COUNT 4.16 10^6/uL (4.00-5.40); WHITE BLOOD COUNT 7.5 10^3/uL (4.0-10.0)
[2020-01-09 06:10] LABS: HEMOGLOBIN 12.9 g/dl (12.0-15.5)
[2020-01-09 06:33] LABS: BLOOD UREA NITROGEN 12 MG/DL (7-18); CALCIUM LEVEL 8.8 MG/DL (8.5-10.1); CARBON DIOXIDE LEVEL 23 MEQ/L (21-32); CHLORIDE LEVEL 114 MEQ/L (98-107); CREATININE FOR GFR 0.78 MG/DL (0.55-1.30); GLOMERULAR FILTRATION RATE > 60.0 (>51); GLUCOSE, FASTING 73 MG/DL (70-100); MAGNESIUM LEVEL 2.2 MG/DL (1.8-2.4); SODIUM LEVEL 144 MEQ/L (136-145)
[2020-01-09 08:00] VITALS: BP 82/60
[2020-01-09] MEDS ORDERED: ATORVASTATIN 10 MG TAB PO SCH (09:00)
[2020-01-09] MEDS ORDERED: VITAMIN D 1,000 INTERNATIONAL UNITS TABLET PO SCH (09:00)
[2020-01-09] MEDS ORDERED: VENLAFAXINE **XR** 75MG CAPSULE PO SCH (09:00)
[2020-01-09] MEDS: TOPIRAMATE (TopAMAX) 100 MG TAB PO SCH (09:03)
[2020-01-09] MEDS: lamoTRIgine 100MG TAB PO SCH (09:03)
[2020-01-09 09:09] VITALS: BP 92/62
--- NOTE | 2020-01-09 09:48 | MHCRPDOC ---
[facility] Consultation Consultation DATE OF CONSULTATION: 01/09/20 CONSULTATION REQUESTED BY: Dr. Cota REASON FOR CONSULTATION: R/O suicidality RELEVANT HISTORY: The patient is a 49 year old female with h/o bipolar disorder ( per history) and she reports a h/o anxiety and depression. She says she was very scared about coronavirys, got really anxious and then depressed, she is very vague as of why she came to the Hospital. She says that she needed to have her blood drawn and then she got depressed. According to Dr. Cota's note: "Patient is a 49-year-old female with a PMHx of Hypothyroidism, DLP, Seizure disorder, Migraine headaches, Bipolar disorder, GERD who was brought into the emergency room by EMS after she had made a statement of self-harm during her healthcare psychiatric appointment. While at the appointment patient was dozing off and almost falling out of chair. It was reported the patient was very confused and groggy. Upper arrival to ER, patient was sleeping. . There is a suspicion that patient have consumed 4 additional tablets of her Carisoprodol. Poison control was contacted and recommended observation for the next 24 hours. . Hospitalist service was contacted for further evaluation and management. Currently, patient is awake and alert. She adamantly denies any suicidal or homicidal ideation at this time. Is unsure why she is missing tablets. When asking the patient about how she had arrived to the hospital she is unclear of her recent history. Patient has denied any active headache, nausea, vomiting, chest pain, and shortness of breath, palpitations, vomiting, constipation, diarrhea, urinary discomfort or any recent fever/chills. Patient has reported low appetite and has reported weight loss that is reportedly being worked up by her primary care provider." PAST PSYCHIATRIC HISTORY: According to history, she has bipolar disorder but she didn't mention that today during the interview. She said she had anxiety and depression. She said she had been taking Klonopin for several years, she says she has taken Seroquel for several years, she was not specific about the dose, she mentioned she had a list of medications in her purse, but she didn't bring it out. She says she was hospitalized several years a go at [facility], she says it was back in 2014 shortly after her . According to previous documents, she takes Amitryptiline 25 mgs PO QHS, Lamictal 100 ms PO BID, Seroquel a total of 500 mgs Po daily, Topamax 200 mgs PO BID and Venlafafaxine 300 mgs PO daily. The last time she was hospitalized was in August 2019 when she was diagnosed with MDD and anxiety but she had been adm itted to [facility] in may 2017 and at that time she received the diagnosis of bipolar disorder and borderline personality disorder. PAST MEDICAL HISTORY: Medical History Hypothyroidism, DLP, Seizure disorder, Migraine headaches, Bipolar disorder, GERD Surgical History x2 Cholecystectomy Dilation and Curettage FAMILY HISTORY: Mother: Patient is adopted, she doesn't know her biological family Father: As above Siblings: Adopted Children: No children, she was but her in 2014 PERSONAL AND SOCIAL HISTORY: The patient was born and raised in [place]. Resides in: [place] Marital Status: W / Children: None Employment: Unemployed SUBSTANCE ABUSE HISTORY: Smoking: She has smoked for 30 years ETOH: Denies Illicit Drugs: benzos, cocaine and mariuana on recent urine toxicology MENTAL STATUS EXAMINATION: Patient is a 49-year old female, who is alert, cooperative, dressed in hospital gown, laying on her bed at U. Disheveled, edentulous. Speech : normal rhythm, tone and volume. Spontaneous and fluent Language skills intact Thought processes including: linear and coherent. Thought content: negative for suicidal ideation, negative for homicidal ideation, negative for thought delusions. She is future orientated, she wants to go home and play with her roommate children ( 3 children), she would like to have fun, all the fun she has not had for ages. She would like to go hiking, camping, river [place]. Description of associations: Fair Description of abnormal or psychotic thoughts: Denies tav hallucinations, denies thought delusions, denies SI/HI at this time Judgment: fair Insight: fair. Orientation to : x 3 Recent and remote memory: Fair Attention span and concentration: good. Language: adequate. Fund of knowledge: adequate. Mood: anxious Affect: Congruent with mood DIAGNOSIS: 1. Bipolar Disorder, most recent episode depressed 2, Borderline Personality disorder PLAN: 1. The patient can go home. She says her roommate Louisa is willing to provide support and monitor her. She says Louisa is the mother of the children she enjoys playing with. Louisa's phone number is [phone] and this fiction and nonfiction writer prose asked Dr. Cota to contact Louisa to verify this information. Dr. Cota called Louisa and she said she would be supportive and would be monitoring the patient. 2. The patient doesn't meet criteria for [facility]. She has borderline personality disorder and most likely decompensated because she has been very anxious due to coronavirus pandemic. She probably ingested more pills that she should have in an attempt to lower her anxiety. [facility] get an appointment with her therapist and psychiatrist. Thanks for the consult Vital Signs Vital Signs Date Time Temp Pulse Resp B/P (MAP) Pulse Ox O2 Delivery O2 Flow Rate FiO2 01/09/20 08:00 98.0 78 18 82/60 (67) 98 Room Air Laboratory Data 24H Labs Laboratory Tests 2 01/08/20 10:56: Immature Granulocyte % (Auto) 0.2, Neutrophils (%) (Auto) 56.5, Lymphocytes (%) (Auto) 35.6, Monocytes (%) (Auto) 5.6H, Eosinophils (%) (Auto) 0.8, Basophils (%) (Auto) 1.3H, Neutrophils # (Auto) 5.2, Lymphocytes # (Auto) 3.3, Monocytes # (Auto) 0.5, Eosinophils # (Auto) 0.1, Basophils # (Auto) 0.1, Nucleated Red Blood Cells % (auto) 0.0, Blood Gas Bicarbonate Standard 18.8, Venous Blood pH 7.264L, Venous Blood Partial Pressure CO2 48.8, Venous Blood Partial Pressure O2 29.9L, Venous Blood Total Carbon Dioxide 23.1L, Venous Blood HCO3 21.6L, Venous Blood Oxygen Saturation 53.4L, Venous Blood Base Excess -5.7L, Anion Gap 8, Glomerular Filtration Rate > 60.0, Osmolality 294, Calcium Level 9.8, Total Bilirubin 0.4, Direct Bilirubin < 0.1, Aspartate Amino Transf (AST/SGOT) 23, Alanine Aminotransferase (ALT/SGPT) 19, Alkaline Phosphatase 87, Ammonia 26, Total Creatine Kinase 165, Creatine Kinase MB < 1.0, Creatine Kinase MB Relative Index 0.61, Troponin I < 0.02, Total Protein 8.3H, Albumin 4.0, Albumin/Globulin Ratio 0.93L, Thyroid Stimulating Hormone (TSH) 4.920H, Human Chorionic Gonadotropin, Qual NEGATIVE, Salicylates Level 3.7L, Acetaminophen Level < 2.0L, Ethyl Alcohol Level < 0.003 01/08/20 11:10: Urine Opiates Screen NEGATIVE, Urine Methadone Screen NEGATIVE, Urine Barbiturates Screen NEGATIVE, Urine Phencyclidine Screen NEGATIVE, Urine Amph etamines Screen NEGATIVE, Urine Benzodiazepines Screen POSITIVEH, Urine Cocaine Metabolite Screen POSITIVEH, Urine Cannabinoids Screen POSITIVEH 01/09/20 00:08: Bedside Glucose (Misc Panel) 82 01/09/20 05:28: Immature Granulocyte % (Auto) 0.3, Neutrophils (%) (Auto) 70.2H, Lymphocytes (%) (Auto) 23.6L, Monocytes (%) (Auto) 4.8, Eosinophils (%) (Auto) 0.3, Basophils (%) (Auto) 0.8, Neutrophils # (Auto) 5.3, Lymphocytes # (Auto) 1.8, Monocytes # (Auto) 0.4, Eosinophils # (Auto) 0.0, Basophils # (Auto) 0.1, Nucleated Red Blood Cells % (auto) 0.0, Anion Gap 7L, Glomerular Filtration Rate > 60.0, Calcium Level 8.8, Magnesium Level 2.2 Home Medications Current Medications Current Medications Medications (Trade) Dose Ordered Sig/Cruz Route PRN Reason Start Time Stop Time Status Last Admin Dose Admin Amitriptyline HCl (Elavil) 25 mg QHS PO 01/08/20 21:00 01/08/20 20:41 Atorvastatin Calcium (Lipitor) 10 mg DAILY PO 01/09/20 09:00 Clonazepam (KlonoPIN) 1 mg TID PRN PO ANXIETY 01/08/20 16:00 Heparin Sodium (Porcine) (Heparin) 5,000 units Q8H SC 01/08/20 14:30 01/09/20 05:57 Home Med (Med Rec Complete!) ASDIRECTED XX 01/08/20 15:30 01/08/20 15:23 DC Lamotrigine (LaMICtal) 100 mg BID PO 01/08/20 21:00 01/08/20 20:41 Levothyroxine Sodium (Synthroid) 88 mcg DAILY@0600 PO 01/09/20 06:00 01/09/20 05:56 Quetiapine Fumarate (SEROquel) 100 mg QHS PO 01/08/20 21:00 01/08/20 20:40 Quetiapine Fumarate (SEROquel) 400 mg QHS PO 01/08/20 21:00 01/08/20 20:40 Sodium Chloride (Saline Lock Flush) 2 ml ASDIRECTED PRN IV SEE LABEL COMMENTS 01/08/20 17:00 Sodium Chloride (Saline Lock Flush) 2 ml SLF IV 01/08/20 22:00 01/09/20 05:58 Topiramate (TopAMAX) 200 mg BID PO 01/08/20 21:00 01/08/20 20:41 Venlafaxine HCl (Effexor Xr) 300 mg QAM PO 01/09/20 09:00 Vitamin D (Vitamin D) 1,000 units DAILY PO 01/09/20 09:00 Scheduled Amitriptyline HCl (Amitriptyline HCl) 25 Mg Tablet, 25 MG PO QHS, (Reported) Atorvastatin Calcium (Atorvastatin Calcium) 10 Mg Tablet, 10 MG PO DAILY, (Reported) Cholecalciferol (Vitamin D3) (Vitamin D3) 1,000 Unit Tablet, 1,000 UNITS PO DAILY, (Reported) Ergocalciferol (Vitamin D2) (Vitamin D2) 50,000 Units Cap, 50,000 UNITS PO QWEEK, (Reported) sunday Lamotrigine (Lamotrigine) 100 Mg Tablet, 100 MG PO BID, (Reported) Levothyroxine Sodium (Synthroid) 88 Mcg Tablet, 88 MCG PO DAILY, (Reported) Linaclotide (Linzess) 290 Mcg Capsule, 290 MCG PO DAILY, (Reported) Quetiapine Fumarate (Quetiapine Fumarate) 100 Mg Tablet, 100 MG PO QHS, (Reported) total 500mgs Quetiapine Fumarate (Quetiapine Fumarate) 400 Mg Tablet, 400 MG PO QHS, (Repor reema) total 500mgs Topiramate (Topiramate) 200 Mg Tablet, 200 MG PO BID, (Reported) Venlafaxine HCl (Venlafaxine HCl ER) 150 Mg Cap.er.24h, 300 MG PO QAM, (Reported) Scheduled PRN Albuterol Sulfate (Ventolin Hfa) 108 Mcg/Act Aer, 2 PUFFS INH QID PRN for SHORTNESS OF BREATH, (Reported) Carisoprodol (Soma) 350 Mg Tablet, 350 MG PO TID PRN for SPASMS, (Reported) Clonazepam (Clonazepam) 1 Mg Tablet, 1 MG PO TID PRN for ANXIETY, (Reported) Sumatriptan Succinate (Sumatriptan Succinate) 6 Mg/0.5 Ml Cartridge, 0.5 ML SC ASDIRECTED PRN for MIGRAINE, (Reported) [medical marijuana] , 1 DOSE INH for MIGRAINE, (Reported) Allergies Coded Allergies: Penicillins (Verified Allergy, Severe, anaphylactic shock, 01/16/19) Quinolones (Verified Allergy, Intermediate, cipro infusion site-> hives, and itching, 01/16/19) acetaminophen (Verified Allergy, Intermediate, rash, 01/08/20) aspirin (Verified Allergy, Intermediate, rash, 01/08/20) doxycycline (Verified Allergy, Intermediate, RASH/ITCHING, 01/08/20) ibuprofen (Verified Allergy, Intermediate, rash, 01/08/20) prazosin (Verified Adverse Reaction, Mild, lowers bp, 01/08/20) JODY PATIÑO MD Jan 09, 2020 09:09
--- NOTE | 2020-01-09 11:27 | DS.PDOC ---
Discharge Summary General Date of Admission Jan 08, 2020 at 14:24 Date of Discharge 01/09/2020 Discharge Summary PROCEDURES PERFORMED DURING STAY: [None]. ADMITTING DIAGNOSES / DISCHARGE DIAGNOSES: s/p Suicidal ideation s/p Accidental overdose s/p Acute toxic encephalopathy Hypothyroidism DLP Migraine headaches / Seizure disorder Bipolar disorder / Depression / Anxiety GERD DVT prophylaxis COMPLICATIONS/CHIEF COMPLAINT: Altered mental status HISTORY OF PRESENT ILLNESS / HOSPITAL COURSE: Patient is a 49-year-old female with a PMHx of Hypothyroidism, DLP, Seizure disorder, Migraine headaches, Bipolar disorder, GERD who was brought into the emergency room by EMS after she had made a statement of self-harm during her healthcare psychiatric appointment. While at the appointment patient was dozing off and almost falling out of chair. It was reported the patient was very confused and groggy. Upper arrival to ER, patient was sleeping. . There is a suspicion that patient have consumed 4 additional tablets of her Carisoprodol. Poison control was contacted and recommended observation for the next 24 hours. . Hospitalist service was contacted for further evaluation and management. Currently, patient is awake and alert. She adamantly denies any suicidal or homicidal ideation at this time. Is unsure why she is missing tablets. When asking the patient about how she had arrived to the hospital she is unclear of her recent history. Upon evaluation of patient his morning she was awake and alert, was very cooperative. Patient was evaluated by psychiatry who has cleared the patient for discharge home. Have indicated that she is not candidate for inpatient mental health unit and will be continued and a follow-up with her outpatient providers. Patient does have outpatient support via her roommate Stephy. I have called Stephy and discussed with her, and she has reported that she will continue to provide Ms. palma with support. DISCHARGE MEDICATIONS: Please see below. ALLERGIES: Please see below. PHYSICAL EXAMINATION ON DISCHARGE: Vitals (See below) General: Lying in bed, appears comfortable, AAOx3, cooperative HEENT: NC, AT CVS: +S1S2 Lungs: Fair air entry b/l, -w/r/r Abdomen: Soft, ND, NT Extremities: - Edema, - Calf tenderness LABORATORY DATA: Please see below. ACTIVITY: [As tolerated]. DISCHARGE PLAN: Follow up with Angella Gutierrez and Psychiatry within 7 days Remain compliant with treatment plan and medications Return to the ER if you experience any problems DISPOSITION: Home DISCHARGE CONDITION: [Stable]. TIME SPENT ON DISCHARGE: 35 minutes Vital Signs/I&Os Vital Signs Date Time Temp Pulse Resp B/P (MAP) Pulse Ox O2 Delivery O2 Flow Rate FiO2 01/09/20 09:09 92/62 (72) 01/09/20 08:00 98.0 78 18 98 Room Air I&O- Last 24 Hours up to 6 AM 01/09/20 06:00 Intake Total 1360 ml Output Total 0 ml Balance 1360 ml Laboratory Data Labs 24H Laboratory Tests 2 01/09/20 00:08: Bedside Glucose (Misc Panel) 82 01/09/20 05:28: Immature Granulocyte % (Auto) 0.3, Neutrophils (%) (Auto) 70.2H, Lymphocytes (%) (Auto) 23.6L, Monocytes (%) (Auto) 4.8, Eosinophils (%) (Auto) 0.3, Basophils (%) (Auto) 0.8, Neutrophils # (Auto) 5.3, Lymphocytes # (Auto) 1.8, Monocytes # (Auto) 0.4, Eosinophils # (Auto) 0.0, Basophils # (Auto) 0.1, Nucleated Red Blood Cells % (auto) 0.0, Anion Gap 7L, Glomerular Filtration Rate > 60.0, Calcium Level 8.8, Magnesium Level 2.2 CBC/BMP Laboratory Tests 01/09/20 05:28 FSBS Laboratory Tests Test 01/09/20 00:08 Range/Units Bedside Glucose (Misc Panel) 82 70-105 MG/DL Discharge Medications Scheduled Amitriptyline HCl (Amitriptyline HCl) 25 Mg Tablet, 25 MG PO QHS, (Reported) Atorvastatin Calcium (Atorvastatin Calcium) 10 Mg Tablet, 10 MG PO DAILY, (Reported) Cholecalciferol (Vitamin D3) (Vitamin D3) 1,000 Unit Tablet, 1,000 UNITS PO DAILY, (Reported) Ergocalciferol (Vitamin D2) (Vitamin D2) 50,000 Units Cap, 50,000 UNITS PO QWEEK, (Reported) sunday Lamotrigine (Lamotrigine) 100 Mg Tablet, 100 MG PO BID, (Reported) Levothyroxine Sodium (Synthroid) 88 Mcg Tablet, 88 MCG PO DAILY, (Reported) Linaclotide (Linzess) 290 Mcg Capsule, 290 MCG PO DAILY, (Reported) Quetiapine Fumarate (Quetiapine Fumarate) 100 Mg Tablet, 100 MG PO QHS, (Reported) total 500mgs Quetiapine Fumarate (Quetiapine Fumarate) 400 Mg Tablet, 400 MG PO QHS, (Reported) total 500mgs Topiramate (Topiramate) 200 Mg Tablet, 200 MG PO BID, (Reported) Venlafaxine HCl (Venlafaxine HCl ER) 150 Mg Cap.er.24h, 300 MG PO QAM, (Reported) Scheduled PRN Albuterol Sulfate (Ventolin Hfa) 108 Mcg/Act Aer, 2 PUFFS INH QID PRN for SHORTNESS OF BREATH, (Reported) Carisoprodol (Soma) 350 Mg Tablet, 350 MG PO TID PRN for SPASMS, (Reported) Clonazepam (Clonazepam) 1 Mg Tablet, 1 MG PO TID PRN for ANXIETY, (Reported) Sumatriptan Succinate (Sumatriptan Succinate) 6 Mg/0.5 Ml Cartridge, 0.5 ML SC ASDIRECTED PRN for MIGRAINE, (Reported) [medical marijuana] , 1 DOSE INH for MIGRAINE, (Reported) Allergies Coded Allergies: Penicillins (Verified Allergy, Severe, anaphylactic shock, 01/16/19) Quinolones (Verified Allergy, Intermediate, cipro infusion site-> hives, and itching, 01/16/19) acetaminophen (Verified Allergy, Intermediate, rash, 01/08/20) aspirin (Verified Allergy, Intermediate, rash, 01/08/20) doxycycline (Verified Allergy, Intermediate, RASH/ITCHING, 01/08/20) ibuprofen (Verified Allergy, Intermediate, rash, 01/08/20) prazosin (Verified Adverse Reaction, Mild, lowers bp, 01/08/20) AZAM COOK MD Jan 09, 2020 11:27
--- NOTE | 2020-01-10 08:28 | ECGEPIP ---
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
== END 2020-01-09 12:25 | disposition home or self-care (01) | DRG 917 ==
LOC: M ED 10:33 → EDBD 10:33 → M ED INP 14:24 → ENRESERVDT 14:46 → ENRESERVTM 14:46 → M PCU 15:31
PROVIDERS: ADMIT Internal Medicine; ATTEND Internal Medicine
DX: T42.8X1A Poisoning by antiparkinsonism drugs and other central muscle-tone depressants, accidental (unintentional), initial encounter (principal); G92 Toxic encephalopathy; E03.9 Hypothyroidism, unspecified; E78.5 Hyperlipidemia, unspecified; G43.909 Migraine, unspecified, not intractable, without status migrainosus; F31.9 Bipolar disorder, unspecified; K21.9 Gastro-esophageal reflux disease without esophagitis; G40.909 Epilepsy, unspecified, not intractable, without status epilepticus; F17.200 Nicotine dependence, unspecified, uncomplicated; F41.9 Anxiety disorder, unspecified; F60.3 Borderline personality disorder; Z90.49 Acquired absence of other specified parts of digestive tract; Z79.899 Other long term (current) drug therapy; Z88.0 Allergy status to penicillin; Z88.6 Allergy status to analgesic agent; Z88.8 Allergy status to other drugs, medicaments and biological substances; Z88.1 Allergy status to other antibiotic agents

== ENCOUNTER → 2020-01-14 | Outpatient (CLI) | payer MEDICARE ==
[~2020-01-14] MED LIST changes: +GLUCAGON FOR INJ 1 MG VIAL (J1610) As Ordered ONE; +ISOVUE-370 76% 100ML VIAL (Q9967) As Ordered ONE; +PRAZ1CAP PO; +QUET400T PO; +SUMA6KIT SC; +TRAZ150T90 PO; +VITAD1000T PO; +VoLumen 0.1% SUSPENSION 450ML BOTTLE As Ordered ONE; +medical marijuana INH
--- NOTE | 2020-01-14 11:42 | REP ---
CT ENTEROGRAPHY WITH IV AND ORAL CONTRAST: TECHNIQUE: CT abdomen and pelvis is performed. Oral contrast was ingested as per hospital protocol utilizing VoLumen. 100 mL of Isovue 370 was administered intravenously. Sagittal and coronal reconstruction images are performed. Comparison is made with a prior study of 01/03/2019. In the visualized lung bases a small peripheral ill-defined parenchymal opacity is seen in the right lower lobe on the most superior axial images. At that same level there is a subpleural subcentimeter nodular density in the lateral segment of the right middle lobe. In the left lower lobe centrally there is focal ill-defined consolidative opacity. Findings are nonspecific and could represent acute infiltrates or chronic fibroatelectatic change. Liver demonstrates no mass. The patient has had a prior cholecystectomy. There is not significant biliary dilatation. The spleen is normal in size with no intrinsic abnormality. There are metallic clips in the gastroesophageal region. Left adrenal adenoma is stable. Right adrenal gland demonstrates no mass. Pancreas demonstrates no mass. Kidneys are unremarkable. There is no hydronephrosis. There is no abdominal aortic aneurysm. There is no adenopathy. There is no free air or free fluid. No bowel wall thickening is seen. There is again distension of the stomach with air and fluid as on the prior study, and there is moderate fluid throughout the small and large bowel, due to the large amount of ingested contrast material. The appendix is normal. No pelvic mass is seen. Urinary bladder is mildly distended and grossly unremarkable. IMPRESSION: Metallic clips in the upper abdomen. The patient has had a prior cholecystectomy. Stable benign left adrenal adenoma. No bowel abnormalities are seen, with no change since prior study of 01/03/2019. However, new small ill-defined parenchymal opacities are seen in both lung bases as discussed above. Findings could represent acute infiltrate or fibroatelectatic change. Recommend followup CT of the chest. Electronically Signed by Glenn Nevarez MD 01/14/2020 12:14 P
== END ==
LOC: M RAD 09:00
PROVIDERS: ATTEND Physician Assistant Medical
DX: R91.8 Other nonspecific abnormal finding of lung field (principal); D35.02 Benign neoplasm of left adrenal gland; R63.4 Abnormal weight loss; R10.33 Periumbilical pain
CPT/HCPCS: 74177; J1610; Q9967

== ENCOUNTER → 2020-01-28 | Outpatient (CLI) | payer MEDICARE ==
[~2020-01-28] MED LIST changes: -GLUCAGON FOR INJ 1 MG VIAL (J1610) As Ordered ONE; -ISOVUE-370 76% 100ML VIAL (Q9967) As Ordered ONE; -VoLumen 0.1% SUSPENSION 450ML BOTTLE As Ordered ONE
--- NOTE | 2020-01-28 15:35 | REP ---
CT CHEST WITHOUT IV CONTRAST: CT chest performed without IV contrast. Sagittal and coronal reconstruction images are performed. Correlation made with recent CT enterography 01/14/2020 and comparison made with CT of the chest 12/08/2014. In the right lower lobe posterolaterally there is a 1 cm ill-defined parenchymal opacity. This has a somewhat ground glass ill-defined appearance. Maximum diameter is 1 cm. This appears to most likely represent focal infiltrate or fibroatelectasis. In the left lower lobe medially, there is a band of parenchymal opacity which appears improved since the recent CT enterography. There were air bronchograms in the opacity on the enterography exam. This appears to represent improved infiltrate or atelectasis. There is mild residual. No other significant parenchymal opacities are seen bilaterally. There is mild scattered interstitial fibrotic scarring bilaterally. Heart is not enlarged. There is no pleural or pericardial effusion. Thoracic aorta is normal in caliber. I see no axillary or mediastinal adenopathy. There are mild degenerative changes of the spine. The visualized portion of the upper abdomen demonstrates evidence of prior cholecystectomy and a stable left adrenal adenoma. IMPRESSION: Ill-defined 1 cm parenchymal opacity in the right lower lobe has an appearance most consistent with focal infiltrate or fibroatelectasis. It appears somewhat similar to the prior CT enterography 01/14/2020 and is new since 12/08/2014. There is improved small consolidative opacity in the medial left lower lobe with a small band of residual atelectasis or infiltrate at that location. Recommend followup CT in three months to ensure resolution or stability. Electronically Signed by Glenn Nevarez MD 01/28/2020 07:27 P
== END ==
LOC: M RAD 14:00
PROVIDERS: ATTEND Physician Assistant Medical
DX: R91.8 Other nonspecific abnormal finding of lung field (principal)

== ENCOUNTER → 2020-02-12 | Outpatient (REF) | payer MEDICARE ==
[2020-02-12 12:06] LABS: BASO # 0.1 10^3/uL (0.0-0.2); BASO % 0.6 % (0.0-1.0); EOS # 0.1 10^3/uL (0.0-0.5); EOS % 0.9 % (0.0-3.0); HEMATOCRIT 45.8 % (36.0-47.0); HEMOGLOBIN 14.4 g/dl (12.0-15.5); LYMPH # 2.5 10^3/uL (1.5-5.0); LYMPH % 25.7 % (24.0-44.0); MEAN CORPUSCULAR HEMOGLOBIN 31.1 pg (27.0-33.0); MEAN CORPUSCULAR HGB CONC 31.4 g/dl (32.0-36.5); MEAN CORPUSCULAR VOLUME 98.9 fl (80.0-96.0); MONO # 0.5 10^3/uL (0.0-0.8); MONO % 4.6 % (0.0-5.0); NEUTROPHILS # 6.7 10^3/uL (1.5-8.5); NEUTROPHILS % 67.7 % (36.0-66.0); PLATELET COUNT, AUTOMATED 331 10^3/uL (150-450); RED BLOOD COUNT 4.63 10^6/uL (4.00-5.40); WHITE BLOOD COUNT 9.9 10^3/uL (4.0-10.0)
[2020-02-12 12:47] LABS: ALBUMIN 3.9 GM/DL (3.2-5.2); ALT/SGPT 24 U/L (12-78); BILIRUBIN,TOTAL 0.2 MG/DL (0.2-1.0); BLOOD UREA NITROGEN 12 MG/DL (7-18); CARBON DIOXIDE LEVEL 22 MEQ/L (21-32); CHLORIDE LEVEL 111 MEQ/L (98-107); CREATININE FOR GFR 0.77 MG/DL (0.55-1.30); GLOMERULAR FILTRATION RATE > 60.0 (>51); GLUCOSE, FASTING 82 MG/DL (70-100); POTASSIUM SERUM 4.2 MEQ/L (3.5-5.1); SODIUM LEVEL 139 MEQ/L (136-145); TOTAL PROTEIN 7.9 GM/DL (6.4-8.2)
== END ==
LOC: M LAB REF 11:52
PROVIDERS: ATTEND Physician Assistant
DX: G44.229 Chronic tension-type headache, not intractable (principal); R20.0 Anesthesia of skin; R07.9 Chest pain, unspecified; F31.81 Bipolar II disorder; R91.8 Other nonspecific abnormal finding of lung field; F41.9 Anxiety disorder, unspecified

== ENCOUNTER → 2020-03-23 | Outpatient (CLI) | payer MEDICARE ==
[~2020-03-23] MED LIST changes: +BACT800T5 PO; +KETO10TAB PO; +MAGN400T2 PO; +RISP0.253 PO
[2020-03-23 14:33] LABS: FREE T4 1.1 NG/DL (0.76-1.46); THYROID STIMULATING HORMONE 1.91 uIU/ML (0.358-3.740)
== END ==
LOC: M LAB 12:40
PROVIDERS: ATTEND Physician Assistant Medical
DX: K59.04 Chronic idiopathic constipation (principal)

== ENCOUNTER 2020-03-26 10:18 | Emergency (ER) | payer MEDICARE ==
[~2020-03-26] VITALS: Ht 160 cm; Wt 55.3 kg
[~2020-03-26 10:18] MED LIST changes: -BACT800T5 PO; -KETO10TAB PO; -MAGN400T2 PO; -RISP0.253 PO
[2020-03-26] MEDS ORDERED: NS 1,000 ML IV ONE (11:00)
[2020-03-26 11:18] LABS: BASO # 0.1 10^3/uL (0.0-0.2); BASO % 0.7 % (0.0-1.0); EOS % 0.1 % (0.0-3.0); HEMATOCRIT 49.3 % (36.0-47.0); HEMOGLOBIN 16.2 g/dl (12.0-15.5); LYMPH # 1.6 10^3/uL (1.5-5.0); LYMPH % 17.6 % (24.0-44.0); MEAN CORPUSCULAR HEMOGLOBIN 31.9 pg (27.0-33.0); MEAN CORPUSCULAR HGB CONC 32.9 g/dl (32.0-36.5); MONO # 0.8 10^3/uL (0.0-0.8); MONO % 8.5 % (0.0-5.0); NEUTROPHILS # 6.5 10^3/uL (1.5-8.5); NEUTROPHILS % 72.8 % (36.0-66.0); PLATELET COUNT, AUTOMATED 241 10^3/uL (150-450); RED BLOOD COUNT 5.08 10^6/uL (4.00-5.40); WHITE BLOOD COUNT 8.9 10^3/uL (4.0-10.0)
[2020-03-26] MEDS ORDERED: RISP0.253 PO (11:29)
[2020-03-26] MEDS ORDERED: MAGN400T2 PO (11:29)
[2020-03-26] MEDS ORDERED: KETOROLAC 30 MG/ML 1ML VIAL IV ONE (11:30)
[2020-03-26 11:52] LABS: ALBUMIN 4.1 GM/DL (3.2-5.2); ALT/SGPT 47 U/L (12-78); BILIRUBIN,DIRECT < 0.1 MG/DL (0.0-0.2); BILIRUBIN,TOTAL 0.1 MG/DL (0.2-1.0); LIPASE 141 U/L (73-393); TOTAL PROTEIN 8.5 GM/DL (6.4-8.2)
[2020-03-26] MEDS ORDERED: MORPHINE 4 MG/ML 1ML VIAL/SYRINGE (J2270) IV ONE (12:00)
[2020-03-26] MEDS ORDERED: ONDANSETRON 4MG/2ML VIAL IV ONE (12:00)
[2020-03-26] MEDS ORDERED: ISOVUE-370 76% 100ML VIAL As Ordered ONE (12:39)
[2020-03-26] MEDS ORDERED: MORPHINE 2 MG/ML 1ML VIAL (J2270) IV ONE (13:45)
[2020-03-26] MEDS ORDERED: KETO10TAB PO (13:47)
[2020-03-26 14:03] VITALS: BP 112/84
--- NOTE | 2020-03-26 14:17 | REP ---
REASON FOR EXAM: Abdominal pain. COMPARISON: 01/14/2020 CONTRAST: 100 mL Isovue 370. There is no change in the lung bases. There are no pleural or pericardial effusions. Mild intrahepatic ductal dilatation has developed since the last exam, however, the patient is status post cholecystectomy. There are no enhancing hepatic masses. The spleen, pancreas, adrenal glands, and kidneys are unchanged. There is no free fluid or free air in the abdomen or pelvis. Seen in the abdomen and pelvis fluid and gas-filled nondilated small bowel loops are present. There is fluid and gas in the colon. There is no intestinal obstruction. The abdominal aorta and para-aortic regions are within normal limits. There is no evidence of an intra-abdominal or intrapelvic mass or adenopathy. Bone window technique throughout the examination shows no significant changes in the appearance of the osseous structures. IMPRESSION: 1. There is mild intrahepatic ductal dilatation which has developed since the last exam, however, the patient is status post cholecystectomy. 2. Mild small bowel ileus is suspected. There is no evidence of intestinal obstruction. 3. Unchanged bilateral adrenal gland thickening with an unchanged left adrenal gland nodule. 4. Other findings as described above. Electronically Signed by Eyal Flores DO 03/26/2020 03:06 P
--- NOTE | 2020-03-27 07:01 | ED PDOC ---
Post-Departure Follow-Up estephanie lawrence faxed formal report of ct abd/p for Marcos Pope MD Mar 27, 2020 07:00
[2020-03-28] MEDS ORDERED: BACT800T5 PO (08:39)
[2020-04-09] MEDS ORDERED: LEVO100T5 PO (10:20)
== END 2020-03-26 14:05 | disposition home or self-care (01) ==
LOC: M ED 10:18
DX: A08.4 Viral intestinal infection, unspecified (principal); I10 Essential (primary) hypertension; J44.9 Chronic obstructive pulmonary disease, unspecified; J45.909 Unspecified asthma, uncomplicated; F33.9 Major depressive disorder, recurrent, unspecified; F41.9 Anxiety disorder, unspecified; E78.5 Hyperlipidemia, unspecified; K21.9 Gastro-esophageal reflux disease without esophagitis; Z79.899 Other long term (current) drug therapy; Z79.890 Hormone replacement therapy; Z88.0 Allergy status to penicillin; Z88.1 Allergy status to other antibiotic agents; Z88.8 Allergy status to other drugs, medicaments and biological substances; F17.210 Nicotine dependence, cigarettes, uncomplicated
CPT/HCPCS: 74177; 80047; 80076; 81001; 83605; 83690; 85025; 87088; 87186; 87507; 96361; 96374; 96375; 96376; 99284; J1885; J2270; J2405; Q9967

== ENCOUNTER → 2020-04-02 | Outpatient (REF) | payer MEDICARE ==
[~2020-04-02] MED LIST changes: +BACT800T5 PO; +CARI1TAB7; +COLA100C5 PO; +D31000TA2 PO; +ESTR1CRE PV; +KETO10TAB PO; +MAGN400T2 PO; +PEPC1TAB5 PO; +RISP0.253 PO; +SUCR1SS PO; -VITAD1000T PO
[2020-04-02 13:16] LABS: ALBUMIN 3.9 GM/DL (3.2-5.2); ALT/SGPT 27 U/L (12-78); BILIRUBIN,TOTAL 0.3 MG/DL (0.2-1.0); BLOOD UREA NITROGEN 14 MG/DL (7-18); CALCIUM LEVEL 9.7 MG/DL (8.5-10.1); CARBON DIOXIDE LEVEL 24 MEQ/L (21-32); CHLORIDE LEVEL 106 MEQ/L (98-107); CHOLESTEROL LEVEL 213 MG/DL (<200); CHOLESTEROL RISK RATIO 2.505 (<5); CREATININE FOR GFR 0.78 MG/DL (0.55-1.30); GLOMERULAR FILTRATION RATE > 60.0 (>51); GLUCOSE, FASTING 86 MG/DL (70-100); HDL CHOLESTEROL 85 MG/DL (>40); LDL CHOLESTEROL 111 MG/DL (<100); NON-HDL-C 128 MG/DL; POTASSIUM SERUM 4.6 MEQ/L (3.5-5.1); SODIUM LEVEL 136 MEQ/L (136-145); TRIGLYCERIDES LEVEL 85 MG/DL (<150)
== END ==
LOC: M LAB REF 12:17
PROVIDERS: ATTEND Family Medicine Addiction Medicine
DX: E78.5 Hyperlipidemia, unspecified (principal); E03.9 Hypothyroidism, unspecified; R91.1 Solitary pulmonary nodule

== ENCOUNTER 2020-04-06 15:31 | Emergency (ER) | payer MEDICARE ==
[~2020-04-06] VITALS: Ht 160 cm; Wt 54.8 kg
[~2020-04-06 15:31] MED LIST changes: -CARI1TAB7; -COLA100C5 PO; -D31000TA2 PO; -ESTR1CRE PV; -PEPC1TAB5 PO; -SUCR1SS PO; +VITAD1000T PO
[2020-04-06] MEDS ORDERED: CARI1TAB7 (15:39)
[2020-04-06 16:39] LABS: BASO # 0.1 10^3/uL (0.0-0.2); EOS % 0.3 % (0.0-3.0); HEMATOCRIT 38.9 % (36.0-47.0); HEMOGLOBIN 12.8 g/dl (12.0-15.5); LYMPH # 2.7 10^3/uL (1.5-5.0); MEAN CORPUSCULAR HEMOGLOBIN 31.4 pg (27.0-33.0); MEAN CORPUSCULAR HGB CONC 32.9 g/dl (32.0-36.5); MEAN CORPUSCULAR VOLUME 95.6 fl (80.0-96.0); MONO # 0.7 10^3/uL (0.0-0.8); MONO % 9.5 % (0.0-5.0); NEUTROPHILS # 3.4 10^3/uL (1.5-8.5); NEUTROPHILS % 49.8 % (36.0-66.0); PLATELET COUNT, AUTOMATED 269 10^3/uL (150-450); RED BLOOD COUNT 4.07 10^6/uL (4.00-5.40); WHITE BLOOD COUNT 6.8 10^3/uL (4.0-10.0)
[2020-04-06 17:07] LABS: ALBUMIN 3.6 GM/DL (3.2-5.2); ALT/SGPT 19 U/L (12-78); BILIRUBIN,DIRECT 0.1 MG/DL (0.0-0.2); BILIRUBIN,TOTAL 0.2 MG/DL (0.2-1.0); BLOOD UREA NITROGEN 15 MG/DL (7-18); CALCIUM LEVEL 9.2 MG/DL (8.5-10.1); CARBON DIOXIDE LEVEL 23 MEQ/L (21-32); CHLORIDE LEVEL 108 MEQ/L (98-107); CREATININE FOR GFR 0.83 MG/DL (0.55-1.30); GLOMERULAR FILTRATION RATE > 60.0 (>51); GLUCOSE, FASTING 70 MG/DL (70-100); LIPASE 103 U/L (73-393); POTASSIUM SERUM 3.9 MEQ/L (3.5-5.1); SODIUM LEVEL 137 MEQ/L (136-145); TOTAL PROTEIN 7.1 GM/DL (6.4-8.2)
[2020-04-06] MEDS ORDERED: PEPC1TAB5 PO (17:40)
[2020-04-06] MEDS ORDERED: SUCR1SS PO (17:40)
[2020-04-06] MEDS ORDERED: GI COCKTAIL 50ML BTL(HYOSCYAMINE/MAALOX/LIDOCAINE VISCOUS)(1:3:1) PO ONE (17:45)
[2020-04-06 17:58] VITALS: BP 131/75
--- NOTE | 2020-04-07 03:06 | REP ---
ABDOMINAL SERIES: Supine and erect views of the abdomen demonstrate no free intraperitoneal air. Air is scattered throughout the GI tract in a nonspecific pattern. No air-fluid levels are seen on the upright view, with no compelling evidence for small bowel obstruction. Metallic clips are seen in the right upper quadrant. Phleboliths are seen in the pelvis. An accompanying view of the chest demonstrates no acute infiltrate. Heart and mediastinum are unremarkable. IMPRESSION: No free air. No definite evidence for small bowel obstruction, with nonspecific bowel gas pattern. Electronically Signed by Glenn Nevarez MD 04/07/2020 05:01 P
[2020-04-09] MEDS ORDERED: LEVO100T5 PO (10:20)
== END 2020-04-06 18:04 | disposition home or self-care (01) ==
LOC: M ED 15:31
DX: R13.10 Dysphagia, unspecified (principal)

== ENCOUNTER → 2020-04-09 | Outpatient (CLI) | payer MEDICARE ==
[~2020-04-09] MED LIST changes: +CARI1TAB7; +PEPC1TAB5 PO; +SUCR1SS PO
== END ==
LOC: M LABSMTC 11:14
PROVIDERS: ATTEND Anesthesiology
DX: Z01.818 Encounter for other preprocedural examination (principal); Z11.59 Encounter for screening for other viral diseases
CPT/HCPCS: C9803; U0003

== ENCOUNTER 2020-04-12 14:24 | Day surgery (SDC) | payer MEDICARE ==
[~2020-04-12] VITALS: Ht 160 cm; Wt 54.6 kg
[~2020-04-12 14:24] MED LIST changes: +D31000TA2 PO; +NS 1,000 ML IV ONE; -VITAD1000T PO
[2020-04-12 15:06] VITALS: BP 137/69
[2020-04-12] MEDS ORDERED: propofoL 200 MG/20 ML VIAL As Ordered ONE (15:42)
[2020-04-12] MEDS ORDERED: LIDOCAINE 2% 100MG/5ML SDV (FOR ANES.) As Ordered ONE (15:42)
--- NOTE | 2020-04-12 15:54 | ROOR ---
Patient Name: Sara Chavarria Procedure Date: 04/12/2020 3:29 PM Date of : 1970 Age: 49 Room: [facility] Gender: Female Note Status: Finalized Procedure: Upper GI endoscopy Indications: Epigastric abdominal pain, Dysphagia Providers: Chente ARGUELLO MD Referring MD: Family Practice/Adult section [facility] Requesting Provider: Medicines: Monitored Anesthesia Care Complications: No immediate complications. Procedure: Pre-Anesthesia Assessment: - The heart rate, respiratory rate, oxygen saturations, blood pressure, adequacy of pulmonary ventilation, and response to care were monitored throughout the procedure. The Endoscope was introduced through the mouth, and advanced to the second part of duodenum. The upper GI endoscopy was accomplished without difficulty. The patient tolerated the procedure well. Findings: The Z-line was variable and was found 40 cm from the incisors. This was biopsied with a cold forceps for histology. Evidence of a fundoplication was found in the cardia. The wrap appeared intact. The entire examined stomach was normal. The examined duodenum was normal. No endoscopic abnormality was evident in the esophagus to explain the patient's complaint of dysphagia. It was decided, however, to proceed with dilation of the entire esophagus. The scope was withdrawn. Dilation was performed with a Mackey dilator with no resistance at 54 Fr. The scope was withdrawn. Dilation was performed with a Mackey dilator with mild resistance at 56 Fr. The dilation site was examined following endoscope reinsertion and showed no change. Impression: - Normal esophagus. Z-line variable, 40 cm from the incisors. Biopsied. - No endoscopic esophageal abnormality to explain patient's dysphagia. Esophagus dilated with 54/56 F mackey dialtors. - Normal stomach with a fundoplication was found. The wrap appears intact. - Normal examined duodenum. Recommendation: - Observe patient's clinical course. - Telephone endoscopist for pathology results in 2 weeks. - Continue present medications. Chente Arguello MD Chente ARGUELLO MD 04/12/2020 3:53:36 PM Electronically signed by Chente ARGUELLO MD Number of Addenda: 0 Note Initiated On: 04/12/2020 3:29 PM Estimated Blood Loss: Estimated blood loss: none. Estimated blood loss: none.
[2020-08-02] MEDS ORDERED: ESTR1CRE PV (08:28)
[2020-08-02] MEDS ORDERED: COLA100C5 PO (08:28)
[2020-08-02] MEDS ORDERED: LEVO88TA24 PO (08:28)
== END 2020-04-12 16:22 | disposition home or self-care (01) ==
LOC: M OPP 14:24
PROVIDERS: ATTEND Internal Medicine Gastroenterology
DX: R13.10 Dysphagia, unspecified (principal); R10.13 Epigastric pain; K22.8 Other specified diseases of esophagus

== ENCOUNTER → 2020-05-26 | Outpatient (REF) | payer MEDICARE ==
[~2020-05-26] MED LIST changes: +COLA100C5 PO; +ESTR1CRE PV; -NS 1,000 ML IV ONE
[2020-07-10 10:28] LABS: ALBUMIN 3.9 GM/DL (3.2-5.2); ALT/SGPT 28 U/L (12-78); BILIRUBIN,TOTAL 0.3 MG/DL (0.2-1.0); BLOOD UREA NITROGEN 16 MG/DL (7-18); CALCIUM LEVEL 8.7 MG/DL (8.5-10.1); CARBON DIOXIDE LEVEL 21 MEQ/L (21-32); CHLORIDE LEVEL 110 MEQ/L (98-107); CHOLESTEROL LEVEL 210 MG/DL (<200); CHOLESTEROL RISK RATIO 1.926 (<5); CREATININE FOR GFR 0.86 MG/DL (0.55-1.30); GLOMERULAR FILTRATION RATE > 60.0 (>51); GLUCOSE, FASTING 84 MG/DL (70-100); HDL CHOLESTEROL 109 MG/DL (>40); HEMOGLOBIN A1c 5.2 %; LDL CHOLESTEROL 87 MG/DL (<100); NON-HDL-C 101 MG/DL; SODIUM LEVEL 138 MEQ/L (136-145); TOTAL PROTEIN 7.5 GM/DL (6.4-8.2); TRIGLYCERIDES LEVEL 69 MG/DL (<150)
== END ==
LOC: M LAB REF 06:31
PROVIDERS: ATTEND Family Medicine Addiction Medicine
DX: E78.5 Hyperlipidemia, unspecified (principal); E55.9 Vitamin D deficiency, unspecified; E03.8 Other specified hypothyroidism

== ENCOUNTER → 2020-06-09 | Outpatient (CLI) | payer MEDICARE ==
--- NOTE | 2020-06-09 14:41 | REPVR ---
PROCEDURE INFORMATION: Exam: MR Abdomen Without Contrast; Liver Exam date and time: 06/09/2020 12:09 PM Age: 49 years old Clinical indication: Abnormal findings; Abnormal radiologic finding of the abdomen; Radiologic exam and body structure: CT scan; Patient HX: Ductal dilatation; Additional info: Abnormal finding on dx imaging TECHNIQUE: Imaging protocol: MR Abdomen without contrast. Exam focused on the liver. 3D rendering (Not supervised by radiologist): MIP and/or 3D reconstructed images were created by the technologist. COMPARISON: 1. CT ABD/PEL W/IV CONTRAST ONLY 03/26/2020 12:40 PM 2. PT - CT Chest without contrast 12/08/2014 4:17:15 PM FINDINGS: Limitations: Lack of intravenous contrast material limits evaluation of the vascular and visceral structures. Liver: Unremarkable liver. No lesions. Gallbladder and bile ducts: Status post cholecystectomy. The common bile duct measures up to 6 mm in diameter, within normal limits. No intrahepatic ductal dilatation. No evidence of choledocholithiasis. Pancreas: Normal. No abnormal pancreatic ductal dilatation. Adrenals: 3.0 cm left adrenal nodule, unchanged. This has been present since 2014, and is compatible with a benign adenoma. Kidneys and ureters: 5 mm hyperintense T2 upper pole left renal cortical lesion, most likely representing a tiny cyst. There appears to be a small parapelvic right renal cyst. No follow-up imaging is recommended. No hydronephrosis. Stomach and bowel: Duodenal diverticulum. No adjacent inflammation. No bowel obstruction. Intraperitoneal space: No free fluid. IMPRESSION: No abnormal biliary ductal dilatation. Electronically signed by: Iraida Nolan On 06/09/2020 14:41:18 PM
== END ==
LOC: M RAD 10:53
PROVIDERS: ATTEND Physician Assistant Medical
DX: R93.3 Abnormal findings on diagnostic imaging of other parts of digestive tract (principal)

== ENCOUNTER → 2020-06-17 | Outpatient (CLI) | payer MEDICARE ==
--- NOTE | 2020-07-14 11:19 | REP ---
NONCONTRAST CHEST CT CLINICAL: Follow-up solitary nodule. TECHNIQUE: Axial noncontrast images from the thoracic inlet to the upper abdomen with coronal and sagittal reformations. COMPARISON: 01/28/2020. FINDINGS: The previously identified 1 cm nonsolid opacity in the posterior right lower lobe now includes a 7.5 mm solid nodular component (Image 57), and is concerning for active disease including malignancy. The remainder of the bilateral lung palma are relatively well aerated and clear. The previously noted subtle infiltrate/atelectasis in the medial left lower lobe has completely resolved. No new consolidation or effusion. The tracheobronchial tree is patent. Evaluation of the mediastinum is limited by the lack of contrast, but no obvious significant adenopathy is identifiable. Thoracic aorta and pulmonary vasculature appear normal. Atherosclerotic changes to the coronary arteries noted without aortic aneurysm or cardiomegaly. No pericardial effusion. Surrounding musculoskeletal structures are intact and without acute osseous abnormality. Limited upper abdomen demonstrates stable left adrenal adenoma, measuring roughly 2.9 cm. IMPRESSION: * Right lower lobe opacity now includes a 7.5 mm solid component and findings are concerning for active disease including neoplasm. Consider PET CT and/or biopsy. * The remainder of the examination appears normal. * Stable left adrenal adenoma. MTDD
== END ==
LOC: M RAD 10:51
PROVIDERS: ATTEND Family Medicine Addiction Medicine
DX: R91.1 Solitary pulmonary nodule (principal); D35.02 Benign neoplasm of left adrenal gland

== ENCOUNTER → 2020-07-09 | Outpatient (REF) | payer MEDICARE ==
[2020-07-14 16:58] LABS: CHLAMYDIA DNA AMPLIFICATION NEGATIVE (NEGATIVE); GC DNA AMPLIFICATION NEGATIVE (NEGATIVE)
== END ==
LOC: M SFHCPLAZ 13:18
PROVIDERS: ATTEND Nurse Practitioner Family
DX: R10.2 Pelvic and perineal pain (principal); N91.4 Secondary oligomenorrhea; N89.3 Dysplasia of vagina, unspecified; Z11.3 Encounter for screening for infections with a predominantly sexual mode of transmission

== ENCOUNTER → 2020-07-12 | Outpatient (CLI) | payer MEDICARE ==
--- NOTE | 2020-07-16 11:01 | REP ---
PELVIC ULTRASOUND DATE: 07/12/2020 HISTORY: Pelvic pain for a few months; history of endometrial ablation. PROCEDURE/FINDINGS: Real-time sonographic evaluation of the pelvis was performed in transabdominal and endovaginal technique. Urinary bladder measures 2.9 x 0.5 x 6.3 cm. Uterus measures 5.7 x 2.4 x 3.5 cm. Myometrium is diffusely heterogeneous with no focal abnormality. Endometrium is not well defined, approximate thickness is 2 mm in AP dimension. There is no endometrial fluid collection. The ovaries appear normal in size and echotexture, right ovary measuring 1.9 x 1.5 x 1.4 cm and the left ovary 1.9 x 0.9 x 17 cm. There is no evidence of ovarian torsion with duplex Doppler evaluation. There is no adnexal mass. There is no free fluid. IMPRESSION: Heterogeneous myometrium with normal size uterus. Endometrium not well defined status post ablation, with approximate AP thickness 2 mm. No evidence of adnexal mass or torsion. No free fluid. MTDD
== END ==
LOC: M WHC 10:06
PROVIDERS: ATTEND Nurse Practitioner Family
DX: R10.2 Pelvic and perineal pain (principal)

== ENCOUNTER → 2020-07-20 | Outpatient (CLI) | payer MEDICARE ==
--- NOTE | 2020-07-26 11:45 | REP ---
PET CT HISTORY: Lung nodule. COMPARISON: CT study chest 06/17/2020. This shows two adjacent somewhat spiculated nodules in the right lower lobe. TECHNIQUE: 48 minutes following the intravenous injection of an 8.61 mCi dose of F18 fluorodeoxyglucose (FDG), three-dimensional PET CT imaging is acquired in the usual fashion. PET CT FINDINGS: The parotid glands are bilaterally enlarged and show mildly hypermetabolic uptake, this is diffuse and symmetric consistent with sialadenitis. Maximum standard uptake value in the right gland is 3.92 and that in the left 4.11. Head and neck soft tissues are otherwise unremarkable. No abnormal hypermetabolic uptake is seen in the hilar or mediastinal lymph nodes. No evidence of adenopathy. In the lung parenchyma, the bilobed or two adjacent pulmonary nodules in the posterior aspect of the right lower lobe show visible, but non- hypermetabolic uptake. Maximum standard uptake value 2.23. Malignancy is not excluded. There is a new small subcentimeter nodular opacity more superiorly in the right lower lobe with no discernable FDG accumulation. No other abnormal pulmonary parenchymal hypermetabolic uptake or radiographic opacity is seen. In the abdomen and pelvis, there is normal hepatic, splenic, gastrointestinal, and genitourinary FDG distribution. No abnormal abdominal or pelvic hypermetabolic uptake is appreciated. No abnormal skeletal uptake. Normal adrenal glands. IMPRESSION: There is discernable, although not hypermetabolic, uptake in the spiculated nodular opacities adjacent to one another in the right lower lobe. Malignancy is not excluded. No other abnormal hypermetabolic uptake in the chest. There is mildly hypermetabolic uptake in symmetrically enlarged parotid glands in the neck bilaterally. Question chronic sialadenitis. MTDD
== END ==
LOC: M PLARAD 09:32
PROVIDERS: ATTEND Family Medicine Addiction Medicine
DX: R91.1 Solitary pulmonary nodule (principal)
CPT/HCPCS: 78815; A9552

== ENCOUNTER → 2020-07-23 | Outpatient (REF) | payer MEDICARE ==
[2020-07-23 17:25] LABS: PLATELET COUNT, AUTOMATED 258 10^3/uL (150-450)
[2020-07-23 17:28] LABS: INR 0.89; PROTHROMBIN TIME 12.2 SECONDS (12.5-14.3)
== END ==
LOC: M LAB REF 16:58
PROVIDERS: ATTEND Internal Medicine Pulmonary Disease
DX: R91.1 Solitary pulmonary nodule (principal); Z79.01 Long term (current) use of anticoagulants

== ENCOUNTER → 2020-08-02 | Outpatient (CLI) | payer MEDICARE ==
[~2020-08-02] MED LIST changes: +LIDOCAINE 1% MDV 20ML VIAL As Ordered ONE; +SODIUM BICARBONATE 8.4% INJ 50MEQ 50 ML VIAL As Ordered ONE
--- NOTE | 2020-08-02 11:50 | REP ---
INDICATION: POST RIGHT LUNG BIOPSY, 1 VIEW, PA EXPIRATION. COMPARISON: AUGUST 02, 2020 9:56 A.M.. TECHNIQUE: A SINGLE PA EXPIRATORY VIEW OF THE CHEST IS PERFORMED. FINDINGS: THERE IS AGAIN NOTED A SMALL RIGHT APICAL PNEUMOTHORAX, UNCHANGED. THERE ARE AGAIN MILD BIBASILAR ATELECTATIC CHANGES. HEART MEDIASTINUM ARE UNCHANGED. IMPRESSION: STABLE SMALL RIGHT APICAL PNEUMOTHORAX. <Electronically signed by Glenn Nevarez > 08/02/20 [id number]
[2020-08-02 12:25] VITALS: BP 117/79
--- NOTE | 2020-08-02 16:24 | REP ---
INDICATION: RLL NODULE COMPARISON: CT chest without contrast dated 06/17/2020 as well as a PET-CT dated 04/03/2020.. TECHNIQUE: The procedure is performed by Radha Lee [facility], under the direct supervision of Dr. Nevarez. The risks and benefits of the procedure were explained to the patient and informed consent was obtained both orally and written. Directly prior to the start of the procedure, a formal timeout was done in the exam room. The right lower lobe lung mass was localized using CT guidance. Skin was prepped and draped in the usual sterile fashion. Three ml of buffered lidocaine was used as a local anesthetic. FINDINGS: Using CT guidance a 19/20 gauge coaxial needle biopsy system was inserted and advanced into the nodule. Unfortunately the initial insertion was not on target. The coaxial needle was removed. Before being able to get to the mass a pneumothorax had started to develop. The procedure was halted, and the patient was taken for a chest x-ray. The patient was followed with serial chest x-rays. After 2 hours the patient was resting quietly, felt no pain, and the pneumothorax had not gotten any worse. The patient was discharged from the department with the instructions that if anything should change she should report to the ER immediately. Dr. Choe's office was also made aware of the situation and the patient will be following up with him on Sunday. IMPRESSION: Unsuccessful right lung mass biopsy <Electronically signed by Glenn Nevarez > 08/02/20 [id number]
--- NOTE | 2020-08-05 16:35 | REP ---
INDICATION: RIGHT LUNG BIOPSY (PNEUMO), 1 VIEW, PA EXPIRATION Status post biopsy COMPARISON: None. TECHNIQUE: PA expiratory view chest, right lung biopsy. FINDINGS: A PA expiratory view of the chest is performed following attempted right lung biopsy. There is a small right apical pneumothorax. Bibasilar atelectatic change is present. The heart and mediastinum are unremarkable and there is no mediastinal shift. IMPRESSION: Followup chest radiograph will be performed in 2 hours. <Electronically signed by Glenn Nevarez > 08/05/20 [id number]
== END ==
LOC: M IRPRO 07:57
PROVIDERS: ATTEND Internal Medicine Pulmonary Disease
DX: J93.9 Pneumothorax, unspecified (principal); R91.1 Solitary pulmonary nodule

== ENCOUNTER → 2020-08-03 | Outpatient (CLI) | payer MEDICARE ==
[~2020-08-03] MED LIST changes: -LIDOCAINE 1% MDV 20ML VIAL As Ordered ONE; -SODIUM BICARBONATE 8.4% INJ 50MEQ 50 ML VIAL As Ordered ONE
--- NOTE | 2020-08-03 11:34 | REP ---
INDICATION: POSTPROCEDURAL PNEUMOTHORAX COMPARISON: 08/02/2020 TECHNIQUE: PA/Lateral FINDINGS: There is a small right apical pneumothorax. This has decreased in size compared to the prior study. The lungs are otherwise well aerated with no acute infiltrate. Heart and mediastinum are unremarkable. There are mild degenerative changes of the spine. IMPRESSION: The previously noted small right apical pneumothorax is decreased in size compared to the prior exam. <Electronically signed by Glenn Nevarez > 08/03/20 [id number]
== END ==
LOC: M RAD 11:10
PROVIDERS: ATTEND Internal Medicine Pulmonary Disease
DX: J95.811 Postprocedural pneumothorax (principal)

== ENCOUNTER → 2020-08-18 | Outpatient (REF) | payer MEDICARE ==
[2020-08-18 18:51] LABS: APPEARANCE, URINE CLEAR (CLEAR); BACTERIA, URINE AUTO NEGATIVE (NEGATIVE); BILIRUBIN, URINE AUTO NEGATIVE (NEGATIVE); BLOOD, URINE BLOOD 1+ (NEGATIVE); COLOR, URINE YELLOW (YELLOW); GLUCOSE, URINE (UA) AUTO NEGATIVE (NEGATIVE); KETONE, URINE AUTO NEGATIVE (NEGATIVE); LEUKOCYTE ESTERASE, URINE AUTO 1+ (NEGATIVE); MUCUS, URINE SMALL (NEGATIVE); NITRITE, URINE AUTO NEGATIVE (NEGATIVE); PROTEIN, URINE AUTO NEGATIVE (NEGATIVE); RBC, URINE AUTO 2 /HPF (0-3); SPECIFIC GRAVITY URINE AUTO 1.015 (1.002-1.035); SQUAMOUS EPITHELIAL CELL UR AU 0 /HPF (0-6); UROBILINOGEN, URINE AUTO 0.2 mg/dL (0.0-2.0); WBC, URINE AUTO 10 /HPF (0-3)
== END ==
LOC: M LAB REF 18:11
PROVIDERS: ATTEND Family Medicine Addiction Medicine
DX: R35.0 Frequency of micturition (principal)

== ENCOUNTER → 2020-08-24 | Outpatient (CLI) | payer MEDICARE ==
[~2020-08-24] MED LIST changes: +ISOVUE-370 76% 100ML VIAL As Ordered ONE
--- NOTE | 2020-08-25 05:21 | REP ---
INDICATION: SOLITARY PULMONARY NODULE; COMPARE TO PRIORS COMPARISON: 06/17/2020, 01/28/2020 TECHNIQUE: Axial contrast enhanced images from the thoracic inlet to the upper abdomen with coronal and sagittal reformations using 75 ml Isovue 370 intravenous contrast material. [address] CT examination was performed using the following dose reduction techniques: Automated exposure control, adjustment of mA and/or kv according to the patient's size, and use of iterative reconstruction technique. FINDINGS: The bilobed opacity within the posterior right lower lobe measures approximately 12 mm maximal diameter and appears essentially unchanged as compared to 06/17/2020, but obviously increased compared with 01/28/2020. Correlation with suspected recent biopsy results is recommended. No further suspicious nodule or mass lesion identified. The remainder of the lung palma are relatively well aerated with very subtle small patchy bilateral ground-glass opacities raising the possibility of mild multifocal atelectasis without consolidation. No effusion or pneumothorax. No obvious significant axillary, hilar, or mediastinal adenopathy noted. Tracheobronchial tree is patent. Mediastinum demonstrates normal thoracic aorta and pulmonary vasculature. Atherosclerotic changes to the coronary arteries noted without cardiomegaly or pericardial effusion. Surrounding musculoskeletal structures without acute osseous abnormality. Limited upper abdomen includes 3.2 cm left adrenal mass which has been previously classified as adrenal adenoma, but increased in size when compared through oldest available examinations dating 2009 when measuring approximately 1.7 cm. IMPRESSION: 1. The right lower lobe bilobed opacity/nodule is obviously enlarged as compared through 01/28/2020. Correlation with biopsy results recommended. No further suspicious pulmonary parenchymal process noted. 2. Suspected mild scattered atelectasis. 3. The left adrenal lesion which has previously been classified as adenoma shows enlargement when compared through 2010. <Electronically signed by Paramjit Barrios > 08/25/20 0517
== END ==
LOC: M RAD 16:34
PROVIDERS: ATTEND Thoracic Surgery (Cardiothoracic Vascular Surgery)
DX: R91.1 Solitary pulmonary nodule (principal)
CPT/HCPCS: 71260; Q9967

== ENCOUNTER → 2020-09-11 | Outpatient (CLI) | payer MEDICARE ==
[~2020-09-11] MED LIST changes: +AMIT10TA PO; -ISOVUE-370 76% 100ML VIAL As Ordered ONE
== END ==
LOC: M LABSMTC 10:10
PROVIDERS: ATTEND Anesthesiology
DX: Z01.812 Encounter for preprocedural laboratory examination (principal); Z20.828 Contact with and (suspected) exposure to other viral communicable diseases

== ENCOUNTER → 2020-09-13 | Outpatient (CLI) | payer MEDICARE ==
[2020-09-13 13:38] LABS: HEMATOCRIT 38.9 % (36.0-47.0); HEMOGLOBIN 12.5 g/dl (12.0-15.5); MEAN CORPUSCULAR HEMOGLOBIN 31.8 pg (27.0-33.0); MEAN CORPUSCULAR HGB CONC 32.1 g/dl (32.0-36.5); PLATELET COUNT, AUTOMATED 258 10^3/uL (150-450); RED BLOOD COUNT 3.93 10^6/uL (4.00-5.40); WHITE BLOOD COUNT 6.2 10^3/uL (4.0-10.0)
[2020-09-13 13:50] LABS: PARTIAL THROMBOPLASTIN TIME 27.5 SECONDS (24.2-38.5)
[2020-09-13 13:59] LABS: BLOOD UREA NITROGEN 23 MG/DL (7-18); CALCIUM LEVEL 8.7 MG/DL (8.5-10.1); CARBON DIOXIDE LEVEL 25 MEQ/L (21-32); CHLORIDE LEVEL 112 MEQ/L (98-107); CREATININE FOR GFR 0.78 MG/DL (0.55-1.30); GLOMERULAR FILTRATION RATE > 60.0 (>51); GLUCOSE, FASTING 86 MG/DL (70-100); POTASSIUM SERUM 4.7 MEQ/L (3.5-5.1); SODIUM LEVEL 141 MEQ/L (136-145)
[2020-09-13 14:52] LABS: APPEARANCE, URINE CLEAR (CLEAR); BACTERIA, URINE AUTO NEGATIVE (NEGATIVE); BILIRUBIN, URINE AUTO NEGATIVE (NEGATIVE); BLOOD, URINE BLOOD NEGATIVE (NEGATIVE); COLOR, URINE YELLOW (YELLOW); GLUCOSE, URINE (UA) AUTO NEGATIVE (NEGATIVE); KETONE, URINE AUTO NEGATIVE (NEGATIVE); LEUKOCYTE ESTERASE, URINE AUTO NEGATIVE (NEGATIVE); MUCUS, URINE SMALL (NEGATIVE); NITRITE, URINE AUTO NEGATIVE (NEGATIVE); PROTEIN, URINE AUTO NEGATIVE (NEGATIVE); RBC, URINE AUTO 5 /HPF (0-3); SPECIFIC GRAVITY URINE AUTO 1.019 (1.002-1.035); SQUAMOUS EPITHELIAL CELL UR AU 1 /HPF (0-6); UROBILINOGEN, URINE AUTO 0.2 mg/dL (0.0-2.0); WBC, URINE AUTO 1 /HPF (0-3)
--- NOTE | 2020-09-13 14:58 | ECGEPIP ---
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
--- NOTE | 2020-09-13 15:00 | REP ---
INDICATION: PREOP TESTING. COMPARISON: Comparison chest x-ray August 03, 2020. TECHNIQUE: Two views.. FINDINGS: The lungs are well inflated and free of infiltrate. The pleural angles are sharp. The heart size is normal. Pulmonary vasculature is not increased. No significant bony abnormality is seen. There are surgical clips in the upper abdomen unchanged. IMPRESSION: No active disease.. <Electronically signed by Ignacio Kramer > 09/13/20 [id number]
[2020-09-13 15:22] LABS: ABG BASE EXCESS -5.9 (-2.0-2.0); ABG HCO3 18.3 MEQ/L (22.0-26.0); ABG O2 SATURATION 97.2 % (95.0-99.0); ABG PARTIAL PRESSURE O2 88.2 mmHg (75.0-100.0); ABG STANDARD HCO3 19.6 MEQ/L (22.0-26.0); ABG TOTAL CO2 19.3 MEQ/L (22.0-29.0); ABG pH (ARTERIAL) 7.375 UNITS (7.350-7.450)
[2020-09-14 10:01] LABS: INR 0.96
== END ==
LOC: M ADMPAT 12:57
PROVIDERS: ATTEND Thoracic Surgery (Cardiothoracic Vascular Surgery)
DX: R91.1 Solitary pulmonary nodule (principal); R91.8 Other nonspecific abnormal finding of lung field

== ENCOUNTER 2020-09-15 06:14 | Inpatient (IN) | payer MEDICARE ==
[~2020-09-15] VITALS: Ht 160 cm; Wt 76.1 kg
[2020-09-15] VITALS (12 sets, daily range): BP systolic 87–130; BP diastolic 61–107
[~2020-09-15 06:14] MED LIST changes: +LIDOCAINE 1% MDV 20ML VIAL SQ PRN
[2020-09-15] MEDS ORDERED: fentaNYL 100 MCG/2 ML INJECTION (J3010) As Ordered ONE ×2 (06:45→12:18)
[2020-09-15] MEDS ORDERED: MIDAZOLAM INJ 2MG/2ML VIAL (J2250 PER 1MG) As Ordered ONE ×2 (06:45→08:22)
[2020-09-15] MEDS ORDERED: VANCOMYCIN HCL 1,000 MG, VIAL MATE ADAPTER 1 EACH in D5W 250 ML IV ONE (07:00)
[2020-09-15] MEDS ORDERED: MUPIROCIN 2% OINT 22 GM TUBE TOP ONE (07:00)
[2020-09-15] MEDS ORDERED: LR 1,000 ML IV ONE (07:00)
[2020-09-15] MEDS ORDERED: CETACAINE SPRAY 5GM As Ordered ONE (07:14)
[2020-09-15] MEDS ORDERED: BUPIVACAINE HCL 0.5% 10ML VIAL As Ordered ONE (07:14)
[2020-09-15] MEDS ORDERED: BUPIVACAINE LIPOSOME/PF 1.3% 20ML VIAL (13.3MG/ML)(EXPAREL)(C9290 PER1MG) As Ordered ONE (07:15)
[2020-09-15] MEDS ORDERED: fentaNYL 100 MCG/2 ML INJECTION (J3010) IV ONE (08:00)
[2020-09-15] MEDS ORDERED: MIDAZOLAM INJ 2MG/2ML VIAL (J2250 PER 1MG) IV ONE (08:00)
[2020-09-15] MEDS ORDERED: NALOXONE INJ 0.4MG/1ML VIAL (J2310 PER 1MG) IV PRN (08:15)
[2020-09-15] MEDS ORDERED: ONDANSETRON 4MG/2ML VIAL IV PRN ×3 (08:15→12:30)
[2020-09-15] MEDS ORDERED: EPIDURAL/PCA KEYS XX PRN (08:15)
[2020-09-15] MEDS ORDERED: WALLBOXKEY XX PRN (08:15)
[2020-09-15] MEDS ORDERED: METOCLOPRAMIDE INJ 10MG/2ML VIAL (J2765 PER 1) IV PRN ×2 (08:15→12:30)
[2020-09-15] MEDS ORDERED: dexameTHASONE 4 MG/ML 1ML VIAL (J1100 PER 1MG) As Ordered ONE (08:22)
[2020-09-15] MEDS ORDERED: fentaNYL 250 MCG/5 ML INJECTION (J3010) As Ordered ONE (08:22)
[2020-09-15] MEDS ORDERED: propofoL 200 MG/20 ML VIAL As Ordered ONE (08:22)
[2020-09-15] MEDS ORDERED: ONDANSETRON 4MG/2ML VIAL As Ordered ONE ×2 (08:22→11:20)
[2020-09-15] MEDS ORDERED: ROCURONIUM BROMIDE 50 MG/5 ML VIAL As Ordered ONE ×4 (08:22→10:48)
[2020-09-15] MEDS ORDERED: LIDOCAINE 2% 100MG/5ML SDV (FOR ANES.) As Ordered ONE (08:22)
[2020-09-15] MEDS ORDERED: PHENYLephrine HCL 500 MCG/5 ML (100MCG/ML) SYRINGE (J2370) As Ordered ONE ×3 (08:38→11:37)
[2020-09-15] MEDS ORDERED: ePHEDrine SULFATE 25 MG/5 ML(5MG/ML) SYRINGE As Ordered ONE ×2 (08:44→11:44)
[2020-09-15] MEDS ORDERED: BUPIVACAINE HCL 0.25% 30ML VIAL As Ordered ONE (09:03)
[2020-09-15] MEDS ORDERED: SUGAMMADEX SODIUM 500 MG/5 ML VIAL (BRIDION) As Ordered ONE (09:36)
[2020-09-15] MEDS ORDERED: HYDROmorphone HCL 2 MG/ML 1ML VIAL (J1170) As Ordered ONE (10:38)
[2020-09-15] MEDS ORDERED: KCL 20MEQ IN D5/NS 1000ML 1,000 ML IV SCH (11:50)
[2020-09-15] MEDS ORDERED: carisoprodoL 350 MG TAB PO PRN (12:00)
[2020-09-15] MEDS ORDERED: oxyCODONE 5MG TAB PO PRN (12:00)
[2020-09-15] MEDS ORDERED: BISACODYL 10 MG SUPP PR PRN (12:00)
[2020-09-15] MEDS ORDERED: LEVALBUTEROL 1.25 MG/0.5 ML CONCENTRATE NEB NEB PRN (12:00)
[2020-09-15] MEDS ORDERED: KETOROLAC 60MG 2ML VIAL As Ordered ONE (12:02)
[2020-09-15] MEDS: fentaNYL 100 MCG/2 ML INJECTION (J3010) IV PRN ×4 (12:20→12:39)
[2020-09-15] MEDS: FENTANYL/BUPIVACAINE/NACL BAG 250 ML EPIDURAL SCH (12:20)
[2020-09-15] MEDS ORDERED: LR 1,000 ML IV SCH (12:30)
[2020-09-15] MEDS ORDERED: HYDROMORPHONE HCL 0.5 MG/ 0.5 ML SYRINGE (J1170 PER 1) IV PRN (12:30)
--- NOTE | 2020-09-15 12:58 | REP ---
INDICATION: s/p RLL lobecomty COMPARISON: 09/13/2020 TECHNIQUE: Portable AP view of the chest FINDINGS: Two right-sided chest tubes are identified along with mild postsurgical changes involving the right hemithorax including subcutaneous emphysema, elevation to the right hemidiaphragm, and trace pleural fluid. Mediastinum and cardiac silhouette are normal. Left hemithorax is clear. IMPRESSION: Relatively normal postsurgical changes involving the right hemithorax. <Electronically signed by Paramjit Barrios > 09/15/20 [id number]
[2020-09-15 13:08] LABS: ABG HCO3 20.9 MEQ/L (22.0-26.0); ABG O2 SATURATION 93.8 % (95.0-99.0); ABG PARTIAL PRESSURE CO2 47.1 mmHg (35.0-45.0); ABG PARTIAL PRESSURE O2 76.3 mmHg (75.0-100.0); ABG STANDARD HCO3 19.5 MEQ/L (22.0-26.0); ABG TOTAL CO2 22.4 MEQ/L (22.0-29.0); ABG pH (ARTERIAL) 7.266 UNITS (7.350-7.450); BASO # 0.1 10^3/uL (0.0-0.2); BASO % 0.5 % (0.0-1.0); EOS % 0.1 % (0.0-3.0); HEMATOCRIT 36.9 % (36.0-47.0); HEMOGLOBIN 12.2 g/dl (12.0-15.5); LYMPH # 0.6 10^3/uL (1.5-5.0); LYMPH % 4.2 % (24.0-44.0); MEAN CORPUSCULAR HEMOGLOBIN 32.2 pg (27.0-33.0); MEAN CORPUSCULAR HGB CONC 33.1 g/dl (32.0-36.5); MEAN CORPUSCULAR VOLUME 97.4 fl (80.0-96.0); MONO # 0.2 10^3/uL (0.0-0.8); MONO % 1.6 % (0.0-5.0); NEUTROPHILS # 13.7 10^3/uL (1.5-8.5); NEUTROPHILS % 93.1 % (36.0-66.0); PLATELET COUNT, AUTOMATED 239 10^3/uL (150-450); RED BLOOD COUNT 3.79 10^6/uL (4.00-5.40); WHITE BLOOD COUNT 14.6 10^3/uL (4.0-10.0)
[2020-09-15 13:34] LABS: BLOOD UREA NITROGEN 15 MG/DL (7-18); CALCIUM LEVEL 8.3 MG/DL (8.5-10.1); CARBON DIOXIDE LEVEL 23 MEQ/L (21-32); CHLORIDE LEVEL 110 MEQ/L (98-107); GLOMERULAR FILTRATION RATE > 60.0 (>51); GLUCOSE, FASTING 146 MG/DL (70-100); POTASSIUM SERUM 4.1 MEQ/L (3.5-5.1); SODIUM LEVEL 137 MEQ/L (136-145)
[2020-09-15] MEDS: LEVALBUTEROL 1.25 MG/0.5 ML CONCENTRATE NEB NEB SCH ×2 (15:27→19:38)
[2020-09-15] MEDS: VANCOMYCIN HCL 1,000 MG, VIAL MATE ADAPTER 1 EACH in D5W 250 ML IV SCH ×2 (15:30→22:31)
[2020-09-15] MEDS: KETOROLAC 30 MG/ML 1ML VIAL IV SCH (17:40)
--- NOTE | 2020-09-15 18:33 | RO ---
OPERATIVE NOTE DATE OF PROCEDURE: 09/15/2020 PREOPERATIVE DIAGNOSIS: Right lower lobe lung lesion. POSTOPERATIVE DIAGNOSIS: Adenocarcinoma, right lower lobe. PROCEDURE: Wedge resection followed by right lower lobectomy, mediastinal lymphadenectomy, bronchoscopy and five-level rib block. SURGEON: Kaushik Cobb M.D. FINDINGS: Bronchoscopy revealed a normal branching tracheobronchial tree. There were only very scant secretions. There were no endobronchial lesions. Her lungs appeared almost uniformly black particularly in the lower lobe. I could not see dimpling on the pleural surface. I therefore undertook a thoracotomy for a diagnostic wedge resection which showed adenocarcinoma. We then proceeded to a right lower lobectomy and mediastinal lymphadenectomy. The fissure was complete. However, she had very fragile tissue which had a lot of parenchymal bleeding which was a nuisance. There was one large lower lobe pulmonary artery which was divided. PROCEDURE: Under satisfactory general anesthesia and a single-tube endotracheal intubation, the bronchoscope was passed under direct vision to the tracheobronchial tree and the above results. Each segment and subsegment were thoroughly inspected and there were no endobronchial lesions. There were only scant secretions. The patient was then turned into the left lateral decubitus position and sterilely prepped and draped in the usual fashion. A thoracoscopy incision was made for a 5 mm port in line with a possible thoracotomy incision. Inspection of the chest revealed almost completely blackened lungs. I could not see any dimpling as to tell me where the lesion was. Therefore, an open thoracotomy was undertaken with division of the latissimus dorsi muscle but sparing the serratus anterior muscle. The lesion was found by palpation and a wedge resection was undertaken. Frozen section was sent and came back as adenocarcinoma. She had a complete fissure and in fact a pulmonary artery could be seen in the depths of the fissure. This was dissected. Once the adventitial layer was entered, the dissection could proceed up proximally until the major trunk could be identified. There was one small vessel which tore which needed clipping. The major fissure anteriorly was extended by use of the harmonic scalpel was the fissure posteriorly. This could allow a ski-tip vascular stapler to be positioned and the lower lobe artery divided. The inferior pulmonary ligament was then taken down and the lateral portion of the inferior vein was identified. The inferior vein was dissected free by incising the posterior mediastinal pleura. The vein was then taken with avascular stapler up. This then left the bronchus and the posterior portion of the fissure. Again, the mediastinal pleura was dissected and the takeoff of the right lower lobe bronchus could be ascertained. This was a rather difficult dissection secondary to a lot of bridging veins and most were of the fissure was taken with a harmonic scalpel. When the dissection proceeded in a satisfactory manner, the remainder of the fissure was then divided base of Buford stapler. This then left the bronchus which was then divided with an Buford 4.8 stapler. Prior to dividing the bronchus, the lung was reinflated and the middle lobe was able to inflate without difficulty. The middle lobe bronchus had been priorly identified and avoided. The esophageal musculature was minimally disrupted and NG tube was placed and air insufflated and under water, there was no leak. The lung was then insufflated and there was no air leak of the bronchus. Attention was then turned to the mediastinal nodes where the mediastinal pleura was again incised posterior to the superior vena cava. The azygous vein was taken so that the entire anita packet could be removed under direct vision. This was accomplished using electrocautery. After achieving adequate hemostasis and sealing the mediastinal space with Tisseel glue along with staple lines and suture lines, a five-level rib block consisting of Marcaine and Exparel was then instilled up. Two chest tubes were placed, both #24 tubes, curved and straight, posteriorly and anteriorly. The ribs were reapproximated the use of pericostal sutures of oesope-on-brors. The extrathoracic muscles were reapproximated by use of running 0 Vicryl suture, the subcutaneous tissue by use of 3-0 Vicryl suture and the skin by use of 4-0 Monocryl subcuticular suture. The chest incisions that were made for placement of thelma were used for chest tubes. The patient tolerated the procedure well and left the operating room in satisfactory condition to the recovery room.
[2020-09-15] MEDS: AMITRIPTYLINE 10 MG TAB PO SCH (22:31)
[2020-09-15] MEDS: DOCUSATE SODIUM 100MG CAPSULE PO SCH (22:31)
[2020-09-15] MEDS: TOPIRAMATE (TopAMAX) 100 MG TAB PO SCH (22:32)
[2020-09-15] MEDS: HEPARIN SOD (PORCINE) 5000UNITS/ML 1ML VIAL/SYRINGE SC SCH (22:32)
[2020-09-15] MEDS ORDERED: FLUBLOK(EGG FREE)(QUAD)INFLUENZA VACC 0.5ML SYRINGE 18YRS & OLDER IM PRN (23:15)
[2020-09-16] VITALS (18 sets, daily range): BP systolic 70–118; BP diastolic 52–83
[2020-09-16] MEDS: KETOROLAC 30 MG/ML 1ML VIAL IV SCH ×5 (00:15→23:46)
[2020-09-16] MEDS: LEVALBUTEROL 1.25 MG/0.5 ML CONCENTRATE NEB NEB SCH ×4 (01:38→19:37)
[2020-09-16] MEDS: LEVOTHYROXINE 88MCG TABLET (0.088 MG) PO SCH (05:11)
[2020-09-16 05:26] LABS: ABG BASE EXCESS -2.6 (-2.0-2.0); ABG HCO3 22.3 MEQ/L (22.0-26.0); ABG O2 SATURATION 99.1 % (95.0-99.0); ABG PARTIAL PRESSURE O2 149.4 mmHg (75.0-100.0); ABG STANDARD HCO3 22.3 MEQ/L (22.0-26.0); ABG TOTAL CO2 23.5 MEQ/L (22.0-29.0); ABG pH (ARTERIAL) 7.375 UNITS (7.350-7.450)
[2020-09-16 05:34] LABS: BASO % 0.3 % (0.0-1.0); HEMATOCRIT 31.2 % (36.0-47.0); LYMPH # 1.6 10^3/uL (1.5-5.0); LYMPH % 16.2 % (24.0-44.0); MEAN CORPUSCULAR HEMOGLOBIN 30.9 pg (27.0-33.0); MEAN CORPUSCULAR HGB CONC 31.7 g/dl (32.0-36.5); MEAN CORPUSCULAR VOLUME 97.5 fl (80.0-96.0); MONO # 0.9 10^3/uL (0.0-0.8); MONO % 9.1 % (0.0-5.0); NEUTROPHILS # 7.3 10^3/uL (1.5-8.5); PLATELET COUNT, AUTOMATED 238 10^3/uL (150-450); WHITE BLOOD COUNT 9.9 10^3/uL (4.0-10.0)
[2020-09-16 05:37] LABS: HEMOGLOBIN 9.9 g/dl (12.0-15.5)
[2020-09-16 05:47] LABS: BLOOD UREA NITROGEN 11 MG/DL (7-18); CARBON DIOXIDE LEVEL 23 MEQ/L (21-32); CHLORIDE LEVEL 111 MEQ/L (98-107); CREATININE FOR GFR 0.58 MG/DL (0.55-1.30); GLOMERULAR FILTRATION RATE > 60.0 (>51); GLUCOSE, FASTING 101 MG/DL (70-100); POTASSIUM SERUM 4.1 MEQ/L (3.5-5.1); SODIUM LEVEL 141 MEQ/L (136-145)
[2020-09-16 05:48] LABS: CALCIUM LEVEL 7.9 MG/DL (8.5-10.1)
[2020-09-16] MEDS: VANCOMYCIN HCL 1,000 MG, VIAL MATE ADAPTER 1 EACH in D5W 250 ML IV SCH ×3 (06:07→23:46)
--- NOTE | 2020-09-16 09:20 | REP ---
INDICATION: s/p RLL lobecomty COMPARISON: 09/15/2020 TECHNIQUE: PA and lateral. FINDINGS: Postsurgical changes involving the right hemithorax include elevation to the right hemidiaphragm and possible underlying pleural fluid. Small amount of residual subcutaneous emphysema identified. Two right-sided chest tubes are again noted. The left hemithorax is clear. Cardiac silhouette is normal. Skeletal structures are intact. IMPRESSION: Postsurgical changes involving the right hemithorax. <Electronically signed by Paramjit Barrios > 09/16/20 0917
[2020-09-16] MEDS: MOM 30ML SUSPENSION UDC PO SCH (10:07)
[2020-09-16] MEDS: HEPARIN SOD (PORCINE) 5000UNITS/ML 1ML VIAL/SYRINGE SC SCH ×2 (10:07→19:28)
[2020-09-16] MEDS: DOCUSATE SODIUM 100MG CAPSULE PO SCH ×2 (10:08→19:28)
[2020-09-16] MEDS: TOPIRAMATE (TopAMAX) 100 MG TAB PO SCH ×2 (10:08→19:28)
[2020-09-16] MEDS: MAGNESIUM OXIDE 400 MG TAB (MAG-OX) PO SCH (10:08)
[2020-09-16] MEDS: VITAMIN D 1,000 INTERNATIONAL UNITS TABLET PO SCH (10:08)
[2020-09-16] MEDS: PANTOPRAZOLE 40MG TAB (PROTONIX) PO SCH (10:08)
[2020-09-16] MEDS: ATORVASTATIN 10 MG TAB PO SCH (10:10)
[2020-09-16] MEDS: diphenhydrAMINE 50MG/ML VIAL (J1200) IV PRN ×2 (10:11→19:26)
[2020-09-16] MEDS: FENTANYL/BUPIVACAINE/NACL BAG 250 ML EPIDURAL SCH (10:14)
--- NOTE | 2020-09-16 15:43 | IPN ---
PROGRESS NOTE DATE: 09/16/2020 SUBJECTIVE: This is another first postoperative day for Mrs. Chavarria after her right lower lobectomy. Her pain is being well controlled with the epidural, although we did bolus her earlier this morning. She has some shoulder pain, which is also abating. PHYSICAL EXAMINATION: VITAL SIGNS: T-max 99.6 with heart rate ranging between 79 and 88 and in sinus rhythm, respiratory rate ranges between 16 and 18 without the use of accessory muscles, and she is 98% saturated now on room air. Blood pressure recorded now at 115/70 to 102/57; it has been recorded as low in the low 70's to high 70's range off a damp and dark line with a mean arterial pressure of 63 to 67. INTAKE AND OUTPUT: For the past 24 hours has been recorded as 2270 in and 1066 out for a positivity of 1200 cc. She has put 260 cc out the chest tube and there is no air leak. Her weight today is 76.4 kilos compared to 70.7 kilos on admission. LUNGS: She has some scattered rales and rhonchi in both lungs more on the right than left, which clear with coughing. Percussion notes are full to the diaphragm. CARDIAC: Without murmurs, clicks, gallops, or rubs. I cannot feel her PMI. S1, S2 are normal. ABDOMEN: Soft, nontender. Bowel sounds are positive, but quite hypoactive. She has not passed flatus yet. There is no hepatomegaly. No CVA tenderness. EXTREMITIES: Show no pretibial edema. No calf tenderness. No differential swelling of the upper extremities. SKIN: Warm, dry, and perfused without cyanosis or mottling including that of the nail beds and knees. NECK: Supple. There is no jugular venous distention. No subcutaneous emphysema. Trachea is midline. Mouth shows her mucous membranes to be pink and moist. Lips and gums without lesions or thrush. EYES: Show her pupils to be equal and reactive. Extraocular movements are intact. Sclerae nonicteric. NEUROLOGIC: Shows II-XII intact. Normal gross motor, gross sensation intact. Gait is not tested. PSYCHIATRIC: Shows her to be awake, alert, and oriented x3 with appropriate mood and affect and conversational. LABORATORY DATA: White count today 9.9 with hemoglobin and hematocrit 9.9 and 31.2 down from 12.2 and 36.9 yesterday in the Recovery Room. Platelet count 238,000. Differential shows 74% neutrophils, 16% lymphocytes, 9% monocytes. Her hemoglobin and hematocrit drop is secondary to hemodilution. Her electrolytes are essentially normal with BUN and creatinine 11 and 0.58, glucose 101and calcium 7.9. Blood gas this morning showed pH 7.37 with pCO2 39 and pO2 149 on 2 liters nasal cannula. Base access -2.6. She has corrected her base access in surgery yesterday of -6. IMAGING STUDIES: Her chest x-ray today shows her lungs fully expanded to the chest wall. There is obligate volume loss from her lobectomy. Costophrenic angles are sharp. No infiltrates. FINAL PATHOLOGY: Now reported as adenocarcinoma moderately differentiated with clear margins. Lymph nodes are negative for malignancy. Therefore, she stages out as a T1B, N0, M0 or stage 1A. IMPRESSION: 1. Stage 1A adenocarcinoma. 2. Postoperative day #1 status post right lower lobectomy. 3. Bipolar disorder. 4. COPD. 5. Hypothyroidism. PLAN/DISCUSSION: I will continue her chest tubes on suction today. I will not diurese her today. I will transfer her to the PCU.
[2020-09-16] MEDS: AMITRIPTYLINE 10 MG TAB PO SCH (19:28)
[2020-09-17] VITALS: BP 140/74
[2020-09-17] MEDS: LEVALBUTEROL 1.25 MG/0.5 ML CONCENTRATE NEB NEB SCH ×4 (02:33→20:15)
[2020-09-17] MEDS: FENTANYL/BUPIVACAINE/NACL BAG 250 ML EPIDURAL SCH (03:28)
[2020-09-17 04:00] VITALS: BP 110/55
[2020-09-17] MEDS: LEVOTHYROXINE 88MCG TABLET (0.088 MG) PO SCH (06:00)
[2020-09-17] MEDS: VANCOMYCIN HCL 1,000 MG, VIAL MATE ADAPTER 1 EACH in D5W 250 ML IV SCH (06:00)
[2020-09-17] MEDS: KETOROLAC 30 MG/ML 1ML VIAL IV SCH ×3 (06:01→17:08)
[2020-09-17] MEDS ORDERED: FUROSEMIDE 40MG/4ML VIAL (J1940) IV ONE (07:00)
[2020-09-17 07:45] VITALS: BP 93/58
[2020-09-17] MEDS: HEPARIN SOD (PORCINE) 5000UNITS/ML 1ML VIAL/SYRINGE SC SCH ×2 (08:51→21:55)
[2020-09-17] MEDS: MAGNESIUM OXIDE 400 MG TAB (MAG-OX) PO SCH (08:51)
[2020-09-17] MEDS: MOM 30ML SUSPENSION UDC PO SCH (08:51)
[2020-09-17] MEDS: VITAMIN D 1,000 INTERNATIONAL UNITS TABLET PO SCH (08:51)
[2020-09-17] MEDS: PANTOPRAZOLE 40MG TAB (PROTONIX) PO SCH (08:51)
[2020-09-17] MEDS: ATORVASTATIN 10 MG TAB PO SCH (08:51)
[2020-09-17] MEDS: diphenhydrAMINE 50MG/ML VIAL (J1200) IV PRN ×2 (08:51→20:11)
[2020-09-17] MEDS: TOPIRAMATE (TopAMAX) 100 MG TAB PO SCH ×2 (08:51→21:55)
[2020-09-17] MEDS: DOCUSATE SODIUM 100MG CAPSULE PO SCH ×2 (08:51→21:55)
--- NOTE | 2020-09-17 09:16 | REP ---
INDICATION: s/p RLL lobecomty. COMPARISON: Comparison chest x-ray September 16, 2020. TECHNIQUE: Two views.. FINDINGS: The patient is status post right thoracotomy and partial pneumonectomy. There are 2 right-sided chest tubes. There is post thoracotomy volume loss in the right hemithorax with elevation of the right hemidiaphragm as before. There is minimal platelike atelectasis in the right base. The lungs are otherwise well inflated. Some subcutaneous emphysema persists in the supraclavicular soft tissues on the right. Monitoring electrodes and epidural catheter are seen. There are clips in right upper quadrant of the abdomen. IMPRESSION: Expected postoperative changes. Two right chest tubes in place anteriorly.. <Electronically signed by Ignacio Kramer > 09/17/20 [id number]
[2020-09-17 09:36] LABS: BASO % 0.5 % (0.0-1.0); EOS # 0.2 10^3/uL (0.0-0.5); HEMATOCRIT 32.2 % (36.0-47.0); HEMOGLOBIN 9.9 g/dl (12.0-15.5); LYMPH % 11.2 % (24.0-44.0); MEAN CORPUSCULAR HGB CONC 30.7 g/dl (32.0-36.5); MEAN CORPUSCULAR VOLUME 100.9 fl (80.0-96.0); MONO # 0.6 10^3/uL (0.0-0.8); MONO % 7.1 % (0.0-5.0); NEUTROPHILS # 6.8 10^3/uL (1.5-8.5); NEUTROPHILS % 78.5 % (36.0-66.0); PLATELET COUNT, AUTOMATED 201 10^3/uL (150-450); RED BLOOD COUNT 3.19 10^6/uL (4.00-5.40); WHITE BLOOD COUNT 8.7 10^3/uL (4.0-10.0)
[2020-09-17 09:55] LABS: BLOOD UREA NITROGEN 12 MG/DL (7-18); CARBON DIOXIDE LEVEL 23 MEQ/L (21-32); CHLORIDE LEVEL 108 MEQ/L (98-107); CREATININE FOR GFR 0.86 MG/DL (0.55-1.30); GLOMERULAR FILTRATION RATE > 60.0 (>51); GLUCOSE, FASTING 84 MG/DL (70-100); POTASSIUM SERUM 3.6 MEQ/L (3.5-5.1); SODIUM LEVEL 137 MEQ/L (136-145)
[2020-09-17 11:39] VITALS: BP 101/60
[2020-09-17 16:00] VITALS: BP 125/70
[2020-09-17 20:00] VITALS: BP 98/63
[2020-09-17] MEDS: AMITRIPTYLINE 10 MG TAB PO SCH (21:55)
[2020-09-18] VITALS (8 sets, daily range): BP systolic 110–126; BP diastolic 62–84
[2020-09-18] MEDS: KETOROLAC 30 MG/ML 1ML VIAL IV SCH ×5 (00:15→23:57)
[2020-09-18] MEDS: diphenhydrAMINE 50MG/ML VIAL (J1200) IV PRN ×2 (00:15→21:02)
[2020-09-18] MEDS: FENTANYL/BUPIVACAINE/NACL BAG 250 ML EPIDURAL SCH ×2 (00:34→22:34)
[2020-09-18] MEDS: LEVALBUTEROL 1.25 MG/0.5 ML CONCENTRATE NEB NEB SCH ×4 (01:35→19:45)
[2020-09-18 05:24] LABS: BASO % 0.4 % (0.0-1.0); EOS # 0.5 10^3/uL (0.0-0.5); EOS % 5.5 % (0.0-3.0); HEMATOCRIT 30.2 % (36.0-47.0); HEMOGLOBIN 9.7 g/dl (12.0-15.5); LYMPH # 1.4 10^3/uL (1.5-5.0); LYMPH % 16.5 % (24.0-44.0); MEAN CORPUSCULAR HEMOGLOBIN 31.6 pg (27.0-33.0); MEAN CORPUSCULAR HGB CONC 32.1 g/dl (32.0-36.5); MEAN CORPUSCULAR VOLUME 98.4 fl (80.0-96.0); MONO # 0.9 10^3/uL (0.0-0.8); MONO % 11.3 % (0.0-5.0); NEUTROPHILS # 5.5 10^3/uL (1.5-8.5); NEUTROPHILS % 65.9 % (36.0-66.0); PLATELET COUNT, AUTOMATED 208 10^3/uL (150-450); RED BLOOD COUNT 3.07 10^6/uL (4.00-5.40); WHITE BLOOD COUNT 8.3 10^3/uL (4.0-10.0)
[2020-09-18 05:45] LABS: BLOOD UREA NITROGEN 17 MG/DL (7-18); CALCIUM LEVEL 8.3 MG/DL (8.5-10.1); CARBON DIOXIDE LEVEL 28 MEQ/L (21-32); CHLORIDE LEVEL 109 MEQ/L (98-107); CREATININE FOR GFR 0.76 MG/DL (0.55-1.30); GLOMERULAR FILTRATION RATE > 60.0 (>51); GLUCOSE, FASTING 89 MG/DL (70-100); POTASSIUM SERUM 4.7 MEQ/L (3.5-5.1); SODIUM LEVEL 140 MEQ/L (136-145)
[2020-09-18] MEDS: LEVOTHYROXINE 88MCG TABLET (0.088 MG) PO SCH (07:01)
--- NOTE | 2020-09-18 08:06 | REP ---
INDICATION: s/p RLL lobecomty. COMPARISON: 09/17/2020. TECHNIQUE: Two views.. FINDINGS: Two right-sided chest tubes are again seen anteriorly. There is an increased amount of extra thoracic soft tissue air along the right chest wall and in the right supraclavicular fossa. Epidural catheter is again seen. There is a small air-fluid level in the right base consistent with a small loculated pleural air collection. Right hemidiaphragm remains somewhat elevated. No acute infiltrate is seen. IMPRESSION: Small loculated pleural air and fluid collection right base subpulmonic region. Two right chest tubes in place. Extra thoracic soft tissue emphysema.. <Electronically signed by Ignacio Kramer > 09/18/20 0803
[2020-09-18] MEDS: PANTOPRAZOLE 40MG TAB (PROTONIX) PO SCH (08:19)
[2020-09-18] MEDS: DOCUSATE SODIUM 100MG CAPSULE PO SCH ×2 (08:19→21:02)
[2020-09-18] MEDS: ATORVASTATIN 10 MG TAB PO SCH (08:19)
[2020-09-18] MEDS: HEPARIN SOD (PORCINE) 5000UNITS/ML 1ML VIAL/SYRINGE SC SCH ×2 (08:22→21:02)
[2020-09-18] MEDS: TOPIRAMATE (TopAMAX) 100 MG TAB PO SCH ×2 (08:22→21:02)
[2020-09-18] MEDS: VITAMIN D 1,000 INTERNATIONAL UNITS TABLET PO SCH (08:22)
[2020-09-18] MEDS: MOM 30ML SUSPENSION UDC PO SCH (08:22)
[2020-09-18] MEDS: MAGNESIUM OXIDE 400 MG TAB (MAG-OX) PO SCH (08:22)
[2020-09-18] MEDS: LINACLOTIDE 290 MCG PO SCH (08:23)
[2020-09-18] MEDS ORDERED: FUROSEMIDE 40MG/4ML VIAL (J1940) IV ONE (09:30)
[2020-09-18] MEDS: AMITRIPTYLINE 10 MG TAB PO SCH (21:02)
[2020-09-19] VITALS: BP 105/68
[2020-09-19] MEDS: LEVALBUTEROL 1.25 MG/0.5 ML CONCENTRATE NEB NEB SCH ×4 (01:41→20:11)
[2020-09-19 04:00] VITALS: BP 119/61
[2020-09-19 05:29] LABS: BASO % 0.4 % (0.0-1.0); EOS # 0.5 10^3/uL (0.0-0.5); EOS % 6.5 % (0.0-3.0); HEMATOCRIT 30.2 % (36.0-47.0); HEMOGLOBIN 9.5 g/dl (12.0-15.5); LYMPH # 1.3 10^3/uL (1.5-5.0); LYMPH % 17.8 % (24.0-44.0); MEAN CORPUSCULAR HEMOGLOBIN 31.5 pg (27.0-33.0); MEAN CORPUSCULAR HGB CONC 31.5 g/dl (32.0-36.5); MONO # 0.8 10^3/uL (0.0-0.8); MONO % 11.7 % (0.0-5.0); NEUTROPHILS # 4.5 10^3/uL (1.5-8.5); NEUTROPHILS % 62.8 % (36.0-66.0); PLATELET COUNT, AUTOMATED 220 10^3/uL (150-450); RED BLOOD COUNT 3.02 10^6/uL (4.00-5.40); WHITE BLOOD COUNT 7.1 10^3/uL (4.0-10.0)
[2020-09-19 05:56] LABS: BLOOD UREA NITROGEN 16 MG/DL (7-18); CALCIUM LEVEL 8.3 MG/DL (8.5-10.1); CARBON DIOXIDE LEVEL 24 MEQ/L (21-32); CHLORIDE LEVEL 109 MEQ/L (98-107); CREATININE FOR GFR 0.75 MG/DL (0.55-1.30); GLOMERULAR FILTRATION RATE > 60.0 (>51); GLUCOSE, FASTING 87 MG/DL (70-100); POTASSIUM SERUM 4.5 MEQ/L (3.5-5.1); SODIUM LEVEL 139 MEQ/L (136-145)
[2020-09-19] MEDS: LEVOTHYROXINE 88MCG TABLET (0.088 MG) PO SCH (06:09)
[2020-09-19] MEDS: KETOROLAC 30 MG/ML 1ML VIAL IV SCH ×4 (06:10→23:32)
[2020-09-19 07:32] VITALS: BP 124/73
[2020-09-19] MEDS: ATORVASTATIN 10 MG TAB PO SCH (08:19)
[2020-09-19] MEDS: MOM 30ML SUSPENSION UDC PO SCH (08:19)
[2020-09-19] MEDS: MAGNESIUM OXIDE 400 MG TAB (MAG-OX) PO SCH (08:19)
[2020-09-19] MEDS: VITAMIN D 1,000 INTERNATIONAL UNITS TABLET PO SCH (08:19)
[2020-09-19] MEDS: TOPIRAMATE (TopAMAX) 100 MG TAB PO SCH ×2 (08:19→20:55)
[2020-09-19] MEDS: PANTOPRAZOLE 40MG TAB (PROTONIX) PO SCH (08:19)
[2020-09-19] MEDS: HEPARIN SOD (PORCINE) 5000UNITS/ML 1ML VIAL/SYRINGE SC SCH ×2 (08:19→20:55)
[2020-09-19] MEDS: DOCUSATE SODIUM 100MG CAPSULE PO SCH ×2 (08:19→20:54)
[2020-09-19] MEDS: LINACLOTIDE 290 MCG PO SCH (08:20)
--- NOTE | 2020-09-19 08:32 | REP ---
INDICATION: s/p RLL lobecomty. COMPARISON: Comparison chest x-ray September 18, 2020 and September 17, 2020. TECHNIQUE: Two views.. FINDINGS: Two right-sided chest tubes and an epidural catheter again noted unchanged. Monitoring electrodes are seen. Post thoracotomy changes on the right include a small subpulmonic loculated air and fluid collection unchanged. There is extra thoracic gas in the soft tissues along the right chest wall and in the right supraclavicular soft tissues. The left lung is clear with slight blunting of the posterior pleural angles visible on lateral radiograph bilaterally. No new infiltrate. IMPRESSION: No new infiltrates seen. Findings unchanged from the previous day's radiograph.. <Electronically signed by Ignacio Kramer > 09/19/20 0849
[2020-09-19 12:27] VITALS: BP 135/74
[2020-09-19] MEDS: oxyCODONE 5MG TAB PO PRN ×3 (15:09→23:31)
[2020-09-19 15:31] VITALS: BP 124/75
[2020-09-19 20:00] VITALS: BP 110/58
[2020-09-19] MEDS: AMITRIPTYLINE 10 MG TAB PO SCH (20:54)
[2020-09-20] VITALS: BP 131/81
[2020-09-20] MEDS: oxyCODONE 5MG TAB PO PRN ×2 (03:37→07:54)
[2020-09-20 04:00] VITALS: BP 152/92
[2020-09-20] MEDS: LEVALBUTEROL 1.25 MG/0.5 ML CONCENTRATE NEB NEB SCH ×2 (04:33→07:27)
[2020-09-20 05:02] LABS: BASO # 0.1 10^3/uL (0.0-0.2); BASO % 0.6 % (0.0-1.0); EOS # 0.5 10^3/uL (0.0-0.5); EOS % 5.6 % (0.0-3.0); HEMATOCRIT 31.7 % (36.0-47.0); HEMOGLOBIN 10.2 g/dl (12.0-15.5); LYMPH # 0.7 10^3/uL (1.5-5.0); LYMPH % 8.7 % (24.0-44.0); MEAN CORPUSCULAR HEMOGLOBIN 31.7 pg (27.0-33.0); MEAN CORPUSCULAR HGB CONC 32.2 g/dl (32.0-36.5); MEAN CORPUSCULAR VOLUME 98.4 fl (80.0-96.0); MONO # 0.9 10^3/uL (0.0-0.8); MONO % 10.8 % (0.0-5.0); NEUTROPHILS % 73.6 % (36.0-66.0); PLATELET COUNT, AUTOMATED 253 10^3/uL (150-450); RED BLOOD COUNT 3.22 10^6/uL (4.00-5.40); WHITE BLOOD COUNT 8.2 10^3/uL (4.0-10.0)
[2020-09-20 05:18] LABS: BLOOD UREA NITROGEN 11 MG/DL (7-18); CALCIUM LEVEL 8.6 MG/DL (8.5-10.1); CARBON DIOXIDE LEVEL 24 MEQ/L (21-32); CHLORIDE LEVEL 109 MEQ/L (98-107); CREATININE FOR GFR 0.69 MG/DL (0.55-1.30); GLOMERULAR FILTRATION RATE > 60.0 (>51); GLUCOSE, FASTING 103 MG/DL (70-100); POTASSIUM SERUM 4.4 MEQ/L (3.5-5.1); SODIUM LEVEL 138 MEQ/L (136-145)
[2020-09-20] MEDS: LEVOTHYROXINE 88MCG TABLET (0.088 MG) PO SCH (05:33)
[2020-09-20] MEDS: KETOROLAC 30 MG/ML 1ML VIAL IV SCH ×2 (05:33→11:26)
--- NOTE | 2020-09-20 07:42 | IPN ---
PROGRESS NOTE DATE: 09/17/2020 SUBJECTIVE: This is now the second postoperative day for Mrs. Chavarria. Her pain is being well-controlled with the epidural; however, it is at 14 mL/hour. Her shoulder pain is much better. OBJECTIVE: VITAL SIGNS: Her vital signs show a T-max of 99.5 with a heart rate that ranges between 88 and 96 in a sinus rhythm. Respiratory rate of a constant 18 who is 95% to 100% saturated on room air and has blood pressures ranging between 140/74 to 93/58. INTAKE/OUTPUT: Over the past 24 hours recorded as 3421 in and 2385 out for a positivity of 1036 mL. She has put out 225 mL in the chest tube. There is no air leak. She has put out 1960 mL in urine. Her weight today is 79 kg compared to 76.4 kg yesterday. LUNGS: She has some scattered rhonchi and rales particularly on the right side. Most of which clear with coughing. Percussion note is full to the diaphragm. CARDIAC: Without murmurs, clicks, gallops, or rubs. I cannot feel her PMI. S1, S2 are normal. ABDOMEN: Soft and nontender. Bowel sounds are positive. There is no hepatomegaly and no CVA tenderness. EXTREMITIES: Show no pretibial edema. No calf tenderness. No differential swelling of the upper extremities. SKIN: Warm, dry, and perfuse without cyanosis or mottling including that of the nail beds and knees. NECK: Supple. There is no jugular venous distention. No subcutaneous emphysema. Trachea is midline. HEENT: Mouth shows mucous membranes to pink and moist. Lips and gums are without lesions. There is no thrush. Eyes show her pupils to be equal and reactive. Extraocular movements intact. Sclerae nonicteric. NEUROLOGIC: II-XII intact. Gross motor intact. Gross sensation intact. Gait is not tested. PSYCHIATRIC: Shows her to be awake, alert, and oriented x3 with appropriate mood and affect and conversational. INVESTIGATIONS: Her chemistries today show essentially normal electrolytes with a BUN and creatinine of 12 and 0.86, a glucose of 84, and a calcium of 8.0. CBC today shows a white count of 8.7 with a hemoglobin and hematocrit of 9.9 and 32.2 unchanged from yesterday with a platelet count of 201,000 and stable. Differential shows 78% neutrophils, 11% lymphocytes, and 7% monocytes. There are no immature forms and no toxic granulations. Her chest x-ray today shows her lungs fully expand to the chest wall. Costophrenic angles are sharp. Chest tubes are in good place. I see no infiltrates. There is obligate volume loss on the right side from the lobectomy. Final pathology has been reported back. ACRA has been reported back as moderately differentiated adenocarcinoma with a maximum tumor size of 1.2 cm with all nodes negative making her a T1b N0 M0 or stage IA2. IMPRESSION: 1. Stage IA2 adenocarcinoma right lower lobe. 2. Postoperative day #2 status post right lower lobectomy. 3. Bipolar disorder. 4. Chronic obstructive pulmonary disease (COPD). 5. Hypothyroidism. PLAN AND DISCUSSION: I will take her chest tubes off suction today. There is no air leak. I will again diurese her. I will also decrease her epidural to 10 mL/hour to see how she does. If necessary, we will go back to the epidural. She does have a lot of pruritus from the epidural and hopefully, the decreasing rate will help her pruritus. She is being given Benadryl for the pruritus.
[2020-09-20 08:00] VITALS: BP 178/97
--- NOTE | 2020-09-20 08:10 | REP ---
INDICATION: s/p RLL lobecomty. COMPARISON: Comparison radiograph is from September 19, 2020. TECHNIQUE: Two views.. FINDINGS: Monitoring electrodes and epidural catheter are again seen. The 2 right chest tubes have been removed. There is some blunting of the right lateral pleural angle and a tiny air-fluid level is seen here decreased from the prior study. There is less extra thoracic soft tissue emphysema. The left lung remains clear. There is very slight blunting of the posterior pleural angles again noted. IMPRESSION: The 2 right chest tubes have been withdrawn.. <Electronically signed by Ignacio Kramer > 09/20/20 0839
--- NOTE | 2020-09-20 08:15 | IPN ---
PROGRESS NOTE DATE: 09/18/2020 SUBJECTIVE: It is now the third postoperative day for Mrs. Chavarria. She is still putting a little too much out of the chest tube to remove it. Her pain is being well controlled with the epidural. She is up and about and walked into x-ray today. PHYSICAL EXAMINATION: Her vital signs show a maximum temperature (T-max) of 98.9 with a heart rate that ranges between 80-93 in a sinus rhythm, respiratory rate of 18-20 without the use of accessory muscles. She is 94-99% saturated on room air, and has blood pressures ranging between 126/70 to 110/62. Her intake and output the past 24 hours has been recorded as 1520 in and 2090 out for a negativity of 538 mL. She has put 265 mL out of the chest tube and there is no air leak. Her weight today is 77.8 kg compared to 79 kg yesterday. On physical examination she has some coarse rhonchi on the right side which clear with coughing. Percussion notes are full through the diaphragm. Cardiac exam is without murmurs, clicks, gallops, or rubs. I cannot feel her PMI. S1, S2 are normal. Abdomen is soft, nontender. Bowel sounds are positive. There is no hepatomegaly. No CVA tenderness. Extremities show no pretibial edema, no calf tenderness, no differential swelling of the upper extremities. Skin is warm and dry and perfused without cyanosis or mottling including that of nailbeds and knees. Neck is supple. There is no jugular venous distention, no subcutaneous emphysema. Trachea is midline. Mouth shows the mucous membranes to be pink and moist. Lips and gums show no lesions, no thrush. Eyes show her pupils to be equal, round, and reactive. Extraocular movements are intact. Sclerae are nonicteric. Neuro shows II-XII intact with normal gross motor, gross sensation intact. Gait is not tested. Psychiatric shows her to be awake and alert and oriented times three with appropriate mood and affect and conversational. Her white count today is 8.3 with a hemoglobin and hematocrit of 9.7 and 30.2, slightly down from 9.9 and 32 yesterday. Platelet count is 208 and stable and differential shows 65% neutrophils, 16% lymphocytes, 11% monocytes. There were no immature forms or toxic granulations. Her chemistries today show essentially normal electrolytes with a BUN and creatinine of 17 and 0.76, glucose 89 with a calcium of 8.3. Her chest x-ray today shows her lungs fully expanded to the chest wall. Costophrenic angles are sharp. I see no infiltrates. IMPRESSION: 1. Postoperative day number three status post right lower lobectomy. 2. Stage IA2 adenocarcinoma. 3. Bipolar disorder. 4. Chronic obstructive pulmonary disease. 5. Hypothyroidism. PLAN AND DISCUSSION: I will continue her chest tube but keep them off suction. Hopefully tomorrow I will be able to remove them and plan for discharge no Sunday.
--- NOTE | 2020-09-20 08:15 | IPN ---
PROGRESS NOTE DATE: 09/19/2020 SUBJECTIVE: This is now the fourth postoperative day for Mrs. Chavarria. She is doing well although we had to increase her epidural yesterday. She has put out minimally from the chest tube, that will be removed today. PHYSICAL EXAMINATION: VITAL SIGNS: Her vital signs show a T-max of 98.9 with a heart range that ranges between 93 and 80, sinus rhythm, respiratory rate of 18 to 20 without using accessory muscles. She is 96 to 100% saturated on room air and blood pressure ranges between 124/73 to 105/68. INTAKE AND OUTPUT: Her intake and output over the past 24 hours was recorded as: 2035 in and 3215 out for a negativity of 1180 mL. She is putting out 165 mL out the chest tube. She weighs 77.6 kilos today. She has put out 3050 mL of urine. LUNGS: Normal vesicular sounds with equal breath sounds on either side. Percussion notes are full to the diaphragm. CARDIAC: Without murmurs, clicks, gallops, or rubs. I cannot feel her PMI. S1, S2 are normal. ABDOMEN: Soft, nontender. Bowel sounds are positive. There is no hepatomegaly. No CVA tenderness. EXTREMITIES: Show no pretibial edema. No calf tenderness. No differential swelling of the upper extremities. SKIN: Warm, dry, and perfused without cyanosis or mottling including that of the nail beds and knees. NECK: Supple. There is no jugular venous distention. No subcutaneous emphysema. Trachea is midline. Mouth shows her mucous membranes to be pink and moist. Lips and gums without lesions or thrush. EYES: Show her pupils to be equal and reactive. Extraocular movements are intact. Sclerae nonicteric. NEUROLOGIC: Shows II-XII intact. Normal gross motor, gross sensation intact. Gait is not tested. PSYCHIATRIC: Shows her to be awake, alert, and oriented x3 with appropriate mood and affect and conversational. LABORATORY DATA: Her white count today is 7.1 with a hemoglobin and hematocrit of 9.5 and 30.2, essentially unchanged from yesterday with a platelet count of 220,000, unchanged from yesterday. Differential shows 62% neutrophils, 17% lymphocytes and 11% monocytes. There are no immature forms and no toxic granulations. Electrolytes were essentially normal with a BUN and creatinine of 16 and 0.75, glucose of 87 and a calcium of 8.3. Her chest x-ray today shows her lung fully expanded to chest wall. Costophrenic angles are sharp. There is minimal subcutaneous emphysema. There is obligate volume loss of the right lung from the lobectomy. IMPRESSION: 1. Postoperative day #4, status post right lower lobectomy. 2. Stage IA2 adenocarcinoma right lower lobe. 3. Bipolar disorder. 4. COPD. 5. Hypothyroidism. PLAN/DISCUSSION: I will remove her chest tube today, wean her epidural and discontinue the [place]. Will plan for discharge in the morning.
[2020-09-20] MEDS: HEPARIN SOD (PORCINE) 5000UNITS/ML 1ML VIAL/SYRINGE SC SCH (08:18)
[2020-09-20] MEDS: MOM 30ML SUSPENSION UDC PO SCH (08:28)
[2020-09-20] MEDS: TOPIRAMATE (TopAMAX) 100 MG TAB PO SCH (08:28)
[2020-09-20] MEDS: ATORVASTATIN 10 MG TAB PO SCH (08:28)
[2020-09-20] MEDS: VITAMIN D 1,000 INTERNATIONAL UNITS TABLET PO SCH (08:29)
[2020-09-20] MEDS: PANTOPRAZOLE 40MG TAB (PROTONIX) PO SCH (08:29)
[2020-09-20] MEDS: LINACLOTIDE 290 MCG PO SCH (08:29)
[2020-09-20] MEDS: MAGNESIUM OXIDE 400 MG TAB (MAG-OX) PO SCH (08:29)
[2020-09-20] MEDS: DOCUSATE SODIUM 100MG CAPSULE PO SCH (08:29)
[2020-09-20 09:14] VITALS: BP 142/80
[2020-09-20] MEDS ORDERED: DURA25DI3 TD (11:53)
[2020-09-20] MEDS ORDERED: OXYC1TAB23 PO (11:53)
[2020-09-20 12:00] VITALS: BP 170/92
[2020-09-20] MEDS ORDERED: fentaNYL 25 MCG/HR PATCH TOP SCH (12:30)
[2020-09-20 13:06] VITALS: BP 166/88
--- NOTE | 2020-09-20 17:40 | DSES ---
DISCHARGE SUMMARY DATE OF ADMISSION: 09/15/2020 DATE OF DISCHARGE: 09/20/2020 DISCHARGE DIAGNOSES: 1. Stage 1A2 adenocarcinoma T1B, N0, M0 postoperative day #5; status post right lower lobectomy. 2. Bipolar disorder. 3. COPD. 4. Hypothyroidism. HOSPITAL COURSE: Patient is a 50-year-old white female who was noticed to have a ground-glass appearing lesion on the abdominal scan done in January, which was occasioned by a nearly 40 pound weight loss for unknown reasons. The lower portion of the abdominal CT showed the solitary pulmonary nodule and this was followed up by proper CT scan of her chest and has been followed since then with two other CT scans, which show a change in the ground-glass lesion to a more solid lesion. She was essentially asymptomatic. She had no pain or chest discomfort. There have been no fevers, chills or sweats. No cough. No sputum production. She states that she does get short of breath with moderate exertion. She stopped smoking two months ago, but before that had green sputum with cough, which markedly improved after smoking cessation. She was taken to the Operating Room where she underwent initial wedge resection, which showed adenocarcinoma, followed by right lower lobectomy with a mediastinal lymphadenectomy. All lymph nodes were negative. She had a benign postoperative course with her air leak stopping on postoperative day #2. The epidural infusion controlled her pain fairly well, but on weaning the epidural, she had increased amounts of pain which was not completely handled with Oxycodone. DISCHARGE MEDICATIONS: She is being discharged today on her home medications, which include: 1. Ventolin two puffs q.i.d. p.r.n. shortness of breath. 2. Amitriptyline 10 mg every day. 3. Atorvastatin 10 mg every day. 4. Soma 350 mg t.i.d. p.r.n. spasms. 5. Vitamin D3 1,000 units every day. 6. Colace 100 mg every day. 7. Lamotrigine 100 mg b.i.d. 8. Synthroid 88 mcg every day. 9. Linzess 290 mg every day. 10.Magnesium Oxide 400 mg every day. 11.Risperidone 0.25 mg b.i.d. 12.Topiramate 200 mg p.o. b.i.d. Additionally, she is being placed on Percocet 5/325 every 4-6 hours p.r.n. pain along with a Duragesic 25 mcg patch every 72 hours. FOLLOW-UP: She will return to see me in one week with a chest x-ray. LABORATORY DATA: Discharge white count 8.2 with hemoglobin and hematocrit 10.2 and 31.7, platelet count 253,000. Electrolytes are essentially normal with BUN and creatinine 11 and 0.69. IMAGING STUDIES: Her chest x-ray shows her lung fully expanded to the chest wall. There is volume loss from the right lobectomy. There are no infiltrates.
[2020-09-23] MEDS ORDERED: FENTANYL REMOVAL DOCUMENTATION MISC XX SCH (12:30)
== END 2020-09-20 13:05 | disposition home or self-care (01) | DRG 165 ==
LOC: M OR 06:14 → M ICU 14:35 → M PCU 09-16 20:19
PROVIDERS: ADMIT Thoracic Surgery (Cardiothoracic Vascular Surgery); ATTEND Thoracic Surgery (Cardiothoracic Vascular Surgery)
PROC: 07T70ZZ Resection of Thorax Lymphatic, Open Approach (ICD-10-PCS; 2020-09-15)
PROC: 0BTF0ZZ Resection of Right Lower Lung Lobe, Open Approach (ICD-10-PCS; principal; 2020-09-15 07:30)
DX: C34.31 Malignant neoplasm of lower lobe, right bronchus or lung (principal); F31.9 Bipolar disorder, unspecified; J44.9 Chronic obstructive pulmonary disease, unspecified; E03.9 Hypothyroidism, unspecified; G40.909 Epilepsy, unspecified, not intractable, without status epilepticus; Z87.891 Personal history of nicotine dependence; Z79.899 Other long term (current) drug therapy; Z88.8 Allergy status to other drugs, medicaments and biological substances; Z88.0 Allergy status to penicillin; Z88.1 Allergy status to other antibiotic agents; Z88.6 Allergy status to analgesic agent

== ENCOUNTER → 2020-10-11 | Outpatient (CLI) | payer MEDICARE ==
[~2020-10-11] MED LIST changes: +DURA25DI3 TD; -LIDOCAINE 1% MDV 20ML VIAL SQ PRN; +OXYC1TAB23 PO
--- NOTE | 2020-10-11 08:38 | REPPI ---
INDICATION: POST OP COMPARISON: 09/27/2020 TECHNIQUE: PA and lateral. FINDINGS: Stable postoperative pleuroparenchymal changes at the right base. Aerated lung palma are clear. No acute consolidation, effusion, or pneumothorax. Mediastinum and cardiac silhouette normal. Skeletal structures intact. IMPRESSION: Stable chronic postoperative changes at the right lung base. No new acute process appreciated. <Electronically signed by Paramjit Barrios > 10/11/20 0812
== END ==
LOC: M PLALAB 08:17
PROVIDERS: ATTEND Thoracic Surgery (Cardiothoracic Vascular Surgery)
DX: Z48.89 Encounter for other specified surgical aftercare (principal)

== ENCOUNTER → 2020-10-25 | Outpatient (CLI) | payer MEDICARE ==
[~2020-10-25] MED LIST changes: -AMIT25TA PO; +AMIT25TA17 PO
--- NOTE | 2020-10-25 08:54 | REPPI ---
INDICATION: C34.31 J45.40 MALIGNANT NEOPLASM OF LOWER LOBE, RIGHT BRONCH COMPARISON: 10/11/2020 TECHNIQUE: PA and lateral. FINDINGS: The mediastinum and cardiac silhouette are stable. No cardiomegaly. Chronic stable pleuroparenchymal changes at the right base again noted. No new acute consolidation, effusion, or pneumothorax. Subtle rib fractures along the lateral aspect of the right 5th and 6th ribs are new as compared to prior examinations and warrant correlation. No associated pulmonary contusion or pneumothorax identified. IMPRESSION: 1. Relatively new rib fractures along the lateral aspect of the right 5th and 6th ribs without associated pulmonary contusion, pleural thickening or pneumothorax. 2. Stable pleuroparenchymal changes at the right base. No new acute process. <Electronically signed by Paramjit Barrios > 10/25/20 0816
== END ==
LOC: M PLAIMG 08:27
PROVIDERS: ATTEND Thoracic Surgery (Cardiothoracic Vascular Surgery)
DX: S22.41XA Multiple fractures of ribs, right side, initial encounter for closed fracture (principal); C34.31 Malignant neoplasm of lower lobe, right bronchus or lung; J45.40 Moderate persistent asthma, uncomplicated

== ENCOUNTER 2020-11-12 18:52 | Emergency (ER) | payer MEDICARE ==
[~2020-11-12] VITALS: Ht 160 cm; Wt 68.6 kg
--- OUTSIDE RECORDS SUMMARY | 2020-11-12 18:58 | CCD ---
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 Name Role Phone DRE BRUCE 129 [phone] DEVI BOWIE 114 [phone] [facility] 107 [phone] Allergies Code Code System Name Reaction Severity Status Onset 20240522 RxNorm Motrin Active 05/18/2016 Penicillin Active 05/18/2016 3640 RxNorm Doxycycline Active 09/16/2019 Notes: ASPRIN - Reaction: addictive Medications Name Status Start Date Stop Date albuterol sulfate 2.5 mg/3 mL (0.083 %) solution for nebulizatio n Active Not available amitriptyline 10 mg tablet one daily Active Not available atorvastatin 10 mg tablet TAKE ONE TABLET BY MOUTH @8AM Active Not avail able carisoprodol 350 mg tablet Active Not a vailable celecoxib 200 mg capsule Completed 020 Chantix Continuing Month Box 1 mg tablet Completed 09/21/2020 Chantix Starting Month Box 0.5 mg (11)-1 mg (42) tablets in dose pack Completed 09/21/2020 cholecalciferol (vitamin D3) 25 mcg (1,0 00 unit) capsule One po qd. Active Not available clonazepam 1 mg tablet Completed 0 Colace 100 mg capsule Take 1 capsule every day by oral route. Active Not available Comp-Air Nebulizer Compressor Active No t available estradiol 0.01% (0.1 mg/gram) vaginal cream Active Not available fentanyl 25 mcg/hr transdermal patch Active Not available furosemide 40 mg tablet Active Not avai lable ketorolac 10 mg tablet Completed 0 lamotrigine 100 mg tablet Active Not av ailable levothyroxine 88 mcg tablet One tablet daily Active Not available Linzess 290 mcg capsule one tablet daily Active Not available nebulizer accessories misc Active Not a vailable oxycodone-acetaminophen 5 mg-325 mg tablet Active Not available prazosin 1 mg capsule Completed 08/19/2020 quetiapine 100 mg tablet Completed quetiapine 400 mg tablet Completed risperidone 0.25 mg tablet Take 1 tablet(s) twice a day by oral route. Active Not available sucralfate 100 mg/mL oral suspension Completed 08/19/2020 sulfamethoxazole 800 mg-trimethoprim 160 mg tablet Completed 08/19/2020 Symbicort 160 mcg-4.5 mcg/actuation HFA aerosol inhaler Active Not available topiramate 200 mg tablet Active Not sherin ilable Trulance 3 mg tablet Completed 08/19/2020 Problems Name Status Onset Date Source Depressive Disorder Active 10/29/2015 History Migraine Active 10/29/2015 History Asthma Active 10/29/2015 History Fitting Procedure Active 10/29/2015 History Influenza Vaccine Needed Active 10/29/2015 History Tobacco Use and Exposure - Finding Active 10/29/[address] Concept Active 10/29/2015 History Clinical Finding Active 10/29/2015 History Finding of Upper Limb Active 10/29/2015 History Muscle Finding Active 10/29/[address] Concept Active 10/29/2015 History Procedure by Method Active 10/29/2015 History Breast Neoplasm Screening Status Active 11/04/2015 History Vitamin D Deficiency Active 12/09/2015 History Screening for Malignant Neoplasm of Cervix Active 12/09 History Backache Active 01/20/2016 History Onychomycosis Active 03/10/2016 History Screening Procedure Active 04/07/2016 History Disorder of Skin Active 05/18/2016 History Hypothyroidism Active 12/19/2016 History [place] Hematuria Active 12/19/2016 History Liver Enzyme Levels - Finding Active 03/07/2017 Hi story Syncope and Collapse Active 06/13/2017 History Exposure to Second Hand Tobacco Smoke Active 06/13/2017 History Diarrhea Active 08/29/2017 History Right Upper Quadrant Pain Active 11/29/2017 Histor y Influenza Vaccination Status Active 11/29/2017 His tory Finding of Head Region Active 05/16/2018 History Micturition Finding Active 08/20/2018 History Spontaneous Ecchymosis Active 10/24/2018 History Pain in the Coccyx Active 11/27/2018 History Finding of Ankle or Foot Active 11/27/2018 History Dizziness and Giddiness Active 01/07/2019 History Tooth Presence - Finding Active 03/27/2019 History Disorder of Skin And/or Subcutaneous Tissue Active 12/2018 History 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 Histo ry Hyperlipidemia Active 07/01/2019 History Posttraumatic Stress Disorder Active 08/18/2019 Hi story Bipolar II Disorder Active 12/08/2019 History Anesthesia of Skin Active 01/13/2020 History Chest Pain Active 01/13/2020 History Chronic Tension-type Headache Active 02/06/2020 Hi story [place] of Lung Active 03/15/2020 History Acute Cystitis Active 04/02/2020 History 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 Procedures Date Name Performed by Gallbladder Surgery Information not avai lable Delivery Notes: x2 Information not available Notes: section x2, Gallbladder, GERD, D&C, Colonoscopy , Endoscopy , "cancer removed from uterus" Results Lab Results Date Name Specimen Result Interpretation Description Value Range Status Address 09/20/2020 CBC W/ Auto Diff Normal White Blood Count 8.2 10 4.0-10.0 10 [facility]: [address] [place] [address] Low Red Blood Count 3.22 10 4.00-5.40 10 [facility]: [address] [place] [address] Low Hemoglobin 10.2 g/dL 12.0-15.5 g/dL [facility]: [address] [place] [address] Low Hematocrit 31.7 % 36.0-47.0 % [facility]: [address] [place] [address] High Mean Corpuscular Volume 98.4 fL 80.0 -96.0 fL [facility]: [address] [place] [address] Normal Mean Corpuscular Hemoglobin 31.7 pg 27.0-33.0 pg [facility]: [address] [place] [address] Normal Mean Corpuscular HGB Conc 32.2 g/dL 32.0-36.5 g/dL [facility]: [address] [place] [address] Normal Red Cell Distribution Width 12.8 % 1 1.5-14.5 % [facility]: [address] [place] [address] Normal Platelet Count, Automated 253 10 150 -450 10 [facility]: [address] [place] [address] High Neutrophils % 73.6 % 36.0-66.0 % [facility]: [address] [facility] Low Lymph % 8.7 % 24.0-44.0 % Final [facility]: [address] [facility] High [place] % 10.8 % 0.0-5.0 % [facility]: [address] [facility] High Eos % 5.6 % 0.0-3.0 % [facility]: [address] [facility] Normal Baso % 0.6 % 0.0-1.0 % [facility]: [address] [facility] Normal Immature Granulocyte % 0.7 % 0-3.0 % [facility]: [address] [place] [address] Normal Nucleated Red Blood Cell % 0.0 % 0- 0 % [facility]: [address] [facility] Normal Neutrophils # 6.0 10 1.5-8.5 10 [facility]: [address] [facility] Low Lymph # 0.7 10 1.5-5.0 10 [facility]: 0 [facility] High Swain # 0.9 10 0.0-0.8 10 [facility]: 0 [facility] Normal Eos # 0.5 10 0.0-0.5 10 [facility]: 0 [facility] Normal Baso # 0.1 10 0.0-0.2 10 [facility]: 0 [facility] 09/20/2020 BMP, Serum or Plasma High Glucose, Fastin g 103 mg/dL 70-100 mg/dL [facility]: [address] 0 [facility] Normal Blood Urea Nitrogen 11 mg/dL 7-18 mg /dL [facility]: 0 [facility] Normal Creatinine for GFR 0.69 mg/dL 0.55-1 .30 mg/dL [facility]: 0 [facility] Normal Glomerular Filtration Rate > 60.0 >5 1 [facility]: [address] [place] [address] Normal Sodium Level 138 mEq/L 136-145 mEq/L [facility]: [address] [place] [address] Normal Potassium Serum 4.4 mEq/L 3.5-5.1 mE q/L [facility]: [address] [place] [address] High Chloride Level 109 mEq/L 98-107 mEq/ L [facility]: [address] [place] [address] Normal Carbon Dioxide Level 24 mEq/L 21-32 mEq/L [facility]: [address] [place] [address] Low Anion Gap 5 mEq/L 8-16 mEq/L [facility]: [address] [place] [address] Normal Calcium Level 8.6 mg/dL 8.5-10.1 mg/ dL [facility]: [address] [place] [address] 09/19/2020 CBC W/ Auto Diff Normal White Blood Count 7.1 10 4.0-10.0 10 [facility]: [address] [place] [address] Low Red Blood Count 3.02 10 4.00-5.40 10 [facility]: [address] [place] [address] Low Hemoglobin 9.5 g/dL 12.0-15.5 g/dL F inal [facility]: [address] [place] [address] Low Hematocrit 30.2 % 36.0-47.0 % [facility]: [address] [place] [address] High Mean Corpuscular Volume 100.0 fL 80. 0-96.0 fL [facility]: [address] [place] [address] Normal Mean Corpuscular Hemoglobin 31.5 pg 27.0-33.0 pg [facility]: [address] [place] [address] Low Mean Corpuscular HGB Conc 31.5 g/dL 32.0-36.5 g/dL [facility]: [address] [place] [address] Normal Red Cell Distribution Width 13.2 % 1 1.5-14.5 % [facility]: [address] [place] [address] Normal Platelet Count, Automated 220 10 150 -450 10 [facility]: [address] [facility] Normal Neutrophils % 62.8 % 36.0-66.0 % [facility]: [address] [facility] Low Lymph % 17.8 % 24.0-44.0 % [facility]: [address] [facility] High [place] % 11.7 % 0.0-5.0 % Final [facility]: [address] [facility] High Eos % 6.5 % 0.0-3.0 % [facility]: [address] [facility] Normal Baso % 0.4 % 0.0-1.0 % [facility]: [address] [facility] Normal Immature Granulocyte % 0.8 % 0-3.0 % [facility]: [address] [facility] Normal Nucleated Red Blood Cell % 0.0 % 0- 0 % [facility]: [address] [facility] Normal Neutrophils # 4.5 10 1.5-8.5 10 [facility]: [address] [facility] Low Lymph # 1.3 10 1.5-5.0 10 [facility]: 0 [facility] Normal Swain # 0.8 10 0.0-0.8 10 [facility]: 0 [facility] Normal Eos # 0.5 10 0.0-0.5 10 [facility]: [address] [facility] Normal Baso # 0.0 10 0.0-0.2 10 [facility]: [address] [facility] 09/19/2020 BMP, Serum or Plasma Normal Glucose, Fastin g 87 mg/dL 70-100 mg/dL [facility]: [address] 0 [facility] Normal Blood Urea Nitrogen 16 mg/dL 7-18 mg /dL [facility]: 0 [facility] Normal Creatinine for GFR 0.75 mg/dL 0.55-1 .30 mg/dL [facility]: 0 [facility] Normal Glomerular Filtration Rate > 60.0 >5 1 [facility]: [address] [place] [address] Normal Sodium Level 139 mEq/L 136-145 mEq/L [facility]: [address] [place] [address] Normal Potassium Serum 4.5 mEq/L 3.5-5.1 mE q/L [facility]: [address] [place] [address] High Chloride Level 109 mEq/L 98-107 mEq/ L [facility]: [address] [place] [address] Normal Carbon Dioxide Level 24 mEq/L 21-32 mEq/L [facility]: [address] [place] [address] Low Anion Gap 6 mEq/L 8-16 mEq/L [facility]: [address] [place] [address] Low Calcium Level 8.3 mg/dL 8.5-10.1 mg/ dL [facility]: [address] [place] [address] 09/18/2020 CBC W/ Auto Diff Normal White Blood Count 8.3 10 4.0-10.0 10 [facility]: [address] [place] [address] Low Red Blood Count 3.07 10 4.00-5.40 10 [facility]: [address] [place] [address] Low Hemoglobin 9.7 g/dL 12.0-15.5 g/dL F inal [facility]: [address] [place] [address] Low Hematocrit 30.2 % 36.0-47.0 % [facility]: [address] [place] [address] High Mean Corpuscular Volume 98.4 fL 80.0 -96.0 fL [facility]: [address] [place] [address] Normal Mean Corpuscular Hemoglobin 31.6 pg 27.0-33.0 pg [facility]: [address] [place] [address] Normal Mean Corpuscular HGB Conc 32.1 g/dL 32.0-36.5 g/dL [facility]: [address] [place] [address] Normal Red Cell Distribution Width 13.2 % 1 1.5-14.5 % [facility]: [address] [place] [address] Normal Platelet Count, Automated 208 10 150 -450 10 [facility]: [address] [facility] Normal Neutrophils % 65.9 % 36.0-66.0 % [facility]: [address] [facility] Low Lymph % 16.5 % 24.0-44.0 % [facility]: [address] [facility] Swain % 11.3 % 0.0-5.0 % Final [facility]: [address] [facility] High Eos % 5.5 % 0.0-3.0 % [facility]: [address] [facility] Normal Baso % 0.4 % 0.0-1.0 % [facility]: [address] [facility] Normal Immature Granulocyte % 0.4 % 0-3.0 % [facility]: [address] [facility] Normal Nucleated Red Blood Cell % 0.0 % 0- 0 % [facility]: [address] [facility] Normal Neutrophils # 5.5 10 1.5-8.5 10 [facility]: [address] [facility] Low Lymph # 1.4 10 1.5-5.0 10 [facility]: [address] [facility] High Swain # 0.9 10 0.0-0.8 10 [facility]: [address] [facility] Normal Eos # 0.5 10 0.0-0.5 10 [facility]: [address] [facility] Normal Baso # 0.0 10 0.0-0.2 10 [facility]: [address] [facility] 09/18/2020 BMP, Serum or Plasma Normal Glucose, Fastin g 89 mg/dL 70-100 mg/dL [facility]: 83 0 [facility] Normal Blood Urea Nitrogen 17 mg/dL 7-18 mg /dL [facility]: [address] [facility] Normal Creatinine for GFR 0.76 mg/dL 0.55-1 .30 mg/dL [facility]: [address] [place] [address] Normal Glomerular Filtration Rate > 60.0 >5 1 [facility]: [address] [place] [address] Normal Sodium Level 140 mEq/L 136-145 mEq/L [facility]: 0 [facility] D Potassium Serum 4.7 mEq/L 3.5-5.1 mE q/L [facility]: [address] [place] [address] High Chloride Level 109 mEq/L 98-107 mEq/ L [facility]: [address] [place] [address] Normal Carbon Dioxide Level 28 mEq/L 21-32 mEq/L [facility]: [address] [place] [address] Low Anion Gap 3 mEq/L 8-16 mEq/L [facility]: [address] [place] [address] Low Calcium Level 8.3 mg/dL 8.5-10.1 mg/ dL [facility]: [address] [place] [address] 09/17/2020 CBC W/ Auto Diff Normal White Blood Count 8.7 10 4.0-10.0 10 [facility]: [address] [place] [address] Low Red Blood Count 3.19 10 4.00-5.40 10 [facility]: [address] [place] [address] Low Hemoglobin 9.9 g/dL 12.0-15.5 g/dL F inal [facility]: [address] [place] [address] Low Hematocrit 32.2 % 36.0-47.0 % [facility]: [address] [place] [address] High Mean Corpuscular Volume 100.9 fL 80. 0-96.0 fL [facility]: [address] [place] [address] Normal Mean Corpuscular Hemoglobin 31.0 pg 27.0-33.0 pg [facility]: [address] [place] [address] Low Mean Corpuscular HGB Conc 30.7 g/dL 32.0-36.5 g/dL [facility]: [address] [place] [address] Normal Red Cell Distribution Width 13.7 % 1 1.5-14.5 % [facility]: [address] [facility] Normal Platelet Count, Automated 201 10 150 -450 10 [facility]: [address] [facility] High Neutrophils % 78.5 % 36.0-66.0 % [facility]: [address] [facility] Low Lymph % 11.2 % 24.0-44.0 % [facility]: [address] [facility] High [place] % 7.1 % 0.0-5.0 % Final [facility]: [address] [facility] Normal Eos % 2.0 % 0.0-3.0 % [facility]: [address] [facility] Normal Baso % 0.5 % 0.0-1.0 % [facility]: [address] [facility] Normal Immature Granulocyte % 0.7 % 0-3.0 % [facility]: [address] [facility] Normal Nucleated Red Blood Cell % 0.0 % 0- 0 % [facility]: [address] [facility] Normal Neutrophils # 6.8 10 1.5-8.5 10 [facility]: [address] [facility] Low Lymph # 1.0 10 1.5-5.0 10 [facility]: [address] [facility] Normal Swain # 0.6 10 0.0-0.8 10 [facility]: [address] [facility] Normal Eos # 0.2 10 0.0-0.5 10 [facility]: [address] [facility] Normal Baso # 0.0 10 0.0-0.2 10 [facility]: 0 [facility] 09/17/2020 BMP, Serum or Plasma Normal Glucose, Fastin g 84 mg/dL 70-100 mg/dL [facility]: 83 0 [facility] Normal Blood Urea Nitrogen 12 mg/dL 7-18 mg /dL [facility]: 0 [facility] Normal Creatinine for GFR 0.86 mg/dL 0.55-1 .30 mg/dL [facility]: [address] [facility] Normal Glomerular Filtration Rate > 60.0 >5 1 [facility]: [address] [facility] Normal Sodium Level 137 mEq/L 136-145 mEq/L [facility]: [address] [facility] Normal Potassium Serum 3.6 mEq/L 3.5-5.1 mE q/L [facility]: [address] [facility] High Chloride Level 108 mEq/L 98-107 mEq/ L [facility]: [address] [facility] Normal Carbon Dioxide Level 23 mEq/L 21-32 mEq/L [facility]: 0 [facility] Low Anion Gap 6 mEq/L 8-16 mEq/L [facility]: 0 [facility] Low Calcium Level 8.0 mg/dL 8.5-10.1 mg/ dL [facility]: 0 [facility] 09/16/2020 Gas Panel, Arterial Blood Normal ABG pH (Ar terial) 7.375 units 7.350-7.450 units [facility]: 83 0 [facility] Normal ABG Partial Pressure CO2 39.0 mmHg 3 5.0-45.0 mmHg [facility]: [address] [place] [address] High ABG Partial Pressure O2 149.4 mmHg 7 5.0-100.0 mmHg [facility]: [address] [facility] Normal ABG Total CO2 23.5 mEq/L 22.0-29.0 m Eq/L [facility]: [address] [facility] Normal Abg Hco3 22.3 mEq/L 22.0-26.0 mEq/L [facility]: 0 [facility] Low ABG Base Excess -2.6 -2.0-2.0 [facility]: 0 [facility] Normal ABG Standard HCO3 22.3 mEq/L 22.0-26 .0 mEq/L [facility]: [address] [facility] High ABG O2 Saturation 99.1 % 95.0-99.0 % [facility]: [address] [place] [address] 09/16/2020 CBC W/ Auto Diff Normal White Blood Count 9.9 10 4.0-10.0 10 [facility]: [address] [place] [address] Low Red Blood Count 3.20 10 4.00-5.40 10 [facility]: [address] [facility] Panic Low Hemoglobin 9.9 g/dL 12.0-15.5 g/d L [facility]: [address] [place] [address] Low Hematocrit 31.2 % 36.0-47.0 % [facility]: [address] [place] [address] High Mean Corpuscular Volume 97.5 fL 80.0 -96.0 fL [facility]: [address] [place] [address] Normal Mean Corpuscular Hemoglobin 30.9 pg 27.0-33.0 pg [facility]: [address] [place] [address] Low Mean Corpuscular HGB Conc 31.7 g/dL 32.0-36.5 g/dL [facility]: 0 [facility] Normal Red Cell Distribution Width 13.2 % 1 1.5-14.5 % [facility]: [address] [place] [address] Normal Platelet Count, Automated 238 10 150 -450 10 [facility]: 0 [facility] High Neutrophils % 74.0 % 36.0-66.0 % [facility]: [address] [facility] Low Lymph % 16.2 % 24.0-44.0 % [facility]: [address] [facility] High Sw[place] % 9.1 % 0.0-5.0 % [facility]: 0 [facility] Normal Eos % 0.0 % 0.0-3.0 % [facility]: [address] [facility] Normal Baso % 0.3 % 0.0-1.0 % [facility]: [address] [facility] Normal Immature Granulocyte % 0.4 % 0-3.0 % [facility]: [address] [facility] Normal Nucleated Red Blood Cell % 0.0 % 0- 0 % [facility]: [address] [facility] Normal Neutrophils # 7.3 10 1.5-8.5 10 [facility]: [address] [facility] Normal Lymph # 1.6 10 1.5-5.0 10 [facility]: [address] [facility] High Swain # 0.9 10 0.0-0.8 10 [facility]: [address] [facility] Normal Eos # 0.0 10 0.0-0.5 10 [facility]: [address] [facility] Normal Baso # 0.0 10 0.0-0.2 10 [facility]: [address] [facility] 09/16/2020 BMP, Serum or Plasma High Glucose, Fastin g 101 mg/dL 70-100 mg/dL [facility]: 83 0 [facility] Normal Blood Urea Nitrogen 11 mg/dL 7-18 mg /dL [facility]: 0 [facility] Normal Creatinine for GFR 0.58 mg/dL 0.55-1 .30 mg/dL [facility]: 0 [facility] Normal Glomerular Filtration Rate > 60.0 >5 1 [facility]: [address] [facility] Normal Sodium Level 141 mEq/L 136-145 mEq/L [facility]: [address] [facility] Normal Potassium Serum 4.1 mEq/L 3.5-5.1 mE q/L [facility]: 0 [facility] High Chloride Level 111 mEq/L 98-107 mEq/ L [facility]: [address] [facility] Normal Carbon Dioxide Level 23 mEq/L 21-32 mEq/L [facility]: 0 [facility] Low Anion Gap 7 mEq/L 8-16 mEq/L [facility]: [address] [place] [address] Low Calcium Level 7.9 mg/dL 8.5-10.1 mg/ dL [facility]: [address] [place] [address] 09/16/2020 Vancomycin, Trough, Serum Normal Va ncomycin Level Trough 17.2 ug/mL 10.0-20.0 ug/mL [facility] nter: [address] [place] [address] 09/15/2020 CBC W/ Auto Diff High White Blood Count 14.6 10 4.0-10.0 10 [facility]: [address] [place] [address] Low Red Blood Count 3.79 10 4.00-5.40 10 [facility]: [address] [place] [address] Normal Hemoglobin 12.2 g/dL 12.0-15.5 g/dL [facility]: [address] [place] [address] Normal Hematocrit 36.9 % 36.0-47.0 % [facility]: [address] [place] [address] High Mean Corpuscular Volume 97.4 fL 80.0 -96.0 fL [facility]: [address] [place] [address] Normal Mean Corpuscular Hemoglobin 32.2 pg 27.0-33.0 pg [facility]: [address] [place] [address] Normal Mean Corpuscular HGB Conc 33.1 g/dL 32.0-36.5 g/dL [facility]: [address] [place] [address] Normal Red Cell Distribution Width 13.2 % 1 1.5-14.5 % [facility]: [address] [place] [address] Normal Platelet Count, Automated 239 10 150 -450 10 [facility]: 0 [facility] High Neutrophils % 93.1 % 36.0-66.0 % [facility]: 0 [facility] Low Lymph % 4.2 % 24.0-44.0 % [facility]: 0 [facility] Normal Swain % 1.6 % 0.0-5.0 % [facility]: [address] [facility] Normal Eos % 0.1 % 0.0-3.0 % [facility]: [address] [facility] Normal Baso % 0.5 % 0.0-1.0 % [facility]: [address] [facility] Normal Immature Granulocyte % 0.5 % 0-3.0 % [facility]: [address] [facility] Normal Nucleated Red Blood Cell % 0.0 % 0- 0 % [facility]: [address] [facility] [facility] High Neutrophils # 13.7 10 1.5-8.5 10 [facility]: 830 [facility] Low Lymph # 0.6 10 1.5-5.0 10 [facility]: 830 [facility] Normal Swain # 0.2 10 0.0-0.8 10 [facility]: 830 [facility] Normal Eos # 0.0 10 0.0-0.5 10 [facility]: 830 [facility] Normal Baso # 0.1 10 0.0-0.2 10 [facility]: 830 [facility] 09/15/2020 Gas Panel, Arterial Blood Low ABG pH (Ar terial) 7.266 units 7.350-7.450 units [facility]: 83 0 [facility] High ABG Partial Pressure CO2 47.1 mmHg 3 5.0-45.0 mmHg [facility]: 830 [facility] Normal ABG Partial Pressure O2 76.3 mmHg 75 .0-100.0 mmHg [facility]: 830 [facility] Normal ABG Total CO2 22.4 mEq/L 22.0-29.0 m Eq/L [facility]: 830 [facility] Low Abg Hco3 20.9 mEq/L 22.0-26.0 mEq/L [facility]: 830 [facility] Low ABG Base Excess -6.0 -2.0-2.0 [facility] l [facility]: 830 [facility] Low ABG Standard HCO3 19.5 mEq/L 22.0-26 .0 mEq/L [facility]: 830 [facility] Low ABG O2 Saturation 93.8 % 95.0-99.0 % [facility]: 830 [facility] 09/15/2020 BMP, Serum or Plasma High Glucose, Fastin g 146 mg/dL 70-100 mg/dL [facility]: 83 0 [facility] Normal Blood Urea Nitrogen 15 mg/dL 7-18 mg /dL [facility]: [address] [place] [address] Normal Creatinine for GFR 0.60 mg/dL 0.55-1 .30 mg/dL [facility]: [address] [place] [address] Normal Glomerular Filtration Rate > 60.0 >5 1 [facility]: 830 [facility] Normal Sodium Level 137 mEq/L 136-145 mEq/L [facility]: 0 [facility] Normal Potassium Serum 4.1 mEq/L 3.5-5.1 mE q/L [facility]: 0 [facility] High Chloride Level 110 mEq/L 98-107 mEq/ L [facility]: 0 [facility] Normal Carbon Dioxide Level 23 mEq/L 21-32 mEq/L [facility]: 0 [facility] Low Anion Gap 4 mEq/L 8-16 mEq/L [facility]: 0 [facility] Low Calcium Level 8.3 mg/dL 8.5-10.1 mg/ dL [facility]: 830 [facility] 09/15/2020 Type + Screen, Serum Normal Blood Type A posit fatuma [facility]: 0 [facility] Normal Ab Screen (Indirect Ronal)vis negat fatuma [facility]: 830 [facility] 09/13/2020 Carboxyhemoglobin High Carboxyhemoglobin 1.8 % 0.0-1.5 % [facility]: 830 [facility] 09/13/2020 Cbc Normal White Blood Count 6.2 10 4.0-10. 0 10 [facility]: 0 [facility] Low Red Blood Count 3.93 10 4.00-5.40 10 [facility]: 830 [facility] Normal Hemoglobin 12.5 g/dL 12.0-15.5 g/dL [facility]: 830 [facility] Normal Hematocrit 38.9 % 36.0-47.0 % [facility]: [address] [place] [address] High Mean Corpuscular Volume 99.0 fL 80.0 -96.0 fL [facility]: [address] [place] [address] Normal Mean Corpuscular Hemoglobin 31.8 pg 27.0-33.0 pg [facility]: [address] [place] [address] Normal Mean Corpuscular HGB Conc 32.1 g/dL 32.0-36.5 g/dL [facility]: [address] [place] [address] Normal Red Cell Distribution Width 13.3 % 1 1.5-14.5 % [facility]: [address] [place] [address] Normal Platelet Count, Automated 258 10 150 -450 10 [facility]: [address] [place] [address] Normal Nucleated Red Blood Cell % 0.0 % 0- 0 % [facility]: 0 [facility] 09/13/2020 Partial Thromboplastin Time Normal Partial Thromboplastin Time 27.5 seconds 24.2-38.5 seconds [facility] nter: 830 [facility] 09/13/2020 BMP, Serum or Plasma Normal Glucose, Fastin g 86 mg/dL 70-100 mg/dL [facility]: 83 0 [facility] High Blood Urea Nitrogen 23 mg/dL 7-18 mg /dL [facility]: [address] [place] [address] Normal Creatinine for GFR 0.78 mg/dL 0.55-1 .30 mg/dL [facility]: [address] [place] [address] Normal Glomerular Filtration Rate > 60.0 >5 1 [facility]: 830 [facility] Normal Sodium Level 141 mEq/L 136-145 mEq/L [facility]: 0 [facility] Normal Potassium Serum 4.7 mEq/L 3.5-5.1 mE q/L [facility]: [address] [place] [address] High Chloride Level 112 mEq/L 98-107 mEq/ L [facility]: 0 [facility] Normal Carbon Dioxide Level 25 mEq/L 21-32 mEq/L [facility]: [address] [place] [address] Low Anion Gap 4 mEq/L 8-16 mEq/L [facility]: [address] [place] [address] Normal Calcium Level 8.7 mg/dL 8.5-10.1 mg/ dL [facility]: 0 [facility] 09/13/2020 Urinalysis, Dipstick Normal Appearance, Uri ne clear clear [facility]: 830 [facility] Normal Color, Urine yellow yellow [facility]: 830 [facility] Normal pH,urine 6.0 units 5.0-9.0 units [facility]: 0 [facility] Normal Specific [place] Urine Auto 1.019 1 .002-1.035 [facility]: 0 [facility] Normal Protein, Urine Auto negative mg/dL n egative mg/dL [facility]: 0 [facility] Normal Glucose, Urine (UA) Auto negative mg /dL negative mg/dL [facility]: 0 [facility] Normal Ketone, Urine Auto negative mg/dL ne gative mg/dL [facility]: 0 [facility] Normal Urobilinogen, Urine Auto 0.2 mg/dL 0 .0-2.0 mg/dL [facility]: 0 [facility] Normal Bilirubin, Urine Auto negative negat fatuma [facility]: 0 [facility] Normal Nitrite, Urine Auto negative negativ e [facility]: 830 [facility] Normal Leukocyte Esterase, Urine Auto negat fatuma negative [facility]: 830 [facility] Normal Blood, Urine Blood negative negative [facility]: 830 [facility] Normal WBC, Urine Auto 1 /hpf 0-3 /hpf [facility]: 830 [facility] High RBC, Urine Auto 5 /hpf 0-3 /hpf [facility]: 830 [facility] Normal Bacteria, Urine Auto negative negati ve [facility]: 830 [facility] Normal Squamous Epithelial Cell Ur AU 1 /hp f 0-6 /hpf [facility]: 830 [facility] Normal Mucus, Urine small negative [facility]: 830 [facility] Normal Hyaline Cast, Urine Auto 0 /lpf 0-1 /lpf [facility]: 830 [facility] 09/13/2020 Gas Panel, Arterial Blood Normal ABG pH (Ar terial) 7.375 units 7.350-7.450 units [facility]: 83 0 [facility] Low ABG Partial Pressure CO2 32.0 mmHg 3 5.0-45.0 mmHg [facility]: 830 [facility] Normal ABG Partial Pressure O2 88.2 mmHg 75 .0-100.0 mmHg [facility]: 830 [facility] Low ABG Total CO2 19.3 mEq/L 22.0-29.0 m Eq/L [facility]: 830 [facility] Low Abg Hco3 18.3 mEq/L 22.0-26.0 mEq/L [facility]: 830 [facility] Low ABG Base Excess -5.9 -2.0-2.0 [facility]: 830 [facility] Low ABG Standard HCO3 19.6 mEq/L 22.0-26 .0 mEq/L [facility]: 830 [facility] Normal ABG O2 Saturation 97.2 % 95.0-99.0 % [facility]: 830 [facility] 09/13/2020 PT/INR Normal Prothrombin Time 13.0 secon ds 12.5-14.3 seconds [facility]: 830 [facility] Normal Inr 0.96 [facility]: 830 [facility] 08/18/2020 Urinalysis, Dipstick Normal Appearance, Uri ne clear clear [facility]: 830 [facility] Normal Color, Urine yellow yellow [facility]: 830 [facility] Normal pH,urine 5.0 units 5.0-9.0 units [facility]: 830 [facility] Normal Specific [place] Urine Auto 1.015 1 .002-1.035 [facility]: 830 [facility] Normal Protein, Urine Auto negative mg/dL n egative mg/dL [facility]: 830 [facility] Normal Glucose, Urine (UA) Auto negative mg /dL negative mg/dL [facility]: 830 [facility] Normal Ketone, Urine Auto negative mg/dL ne gative mg/dL [facility]: 830 [facility] Normal Urobilinogen, Urine Auto 0.2 mg/dL 0 .0-2.0 mg/dL [facility]: 830 [facility] Normal Bilirubin, Urine Auto negative negat fatuma [facility]: 830 [facility] Normal Nitrite, Urine Auto negative negativ e [facility]: 830 [facility] High Leukocyte Esterase, Urine Auto 1+ negative [facility]: 830 [facility] High Blood, Urine Blood 1+ negative F inal [facility]: 830 [facility] High WBC, Urine Auto 10 /hpf 0-3 /hpf [facility]: 830 [facility] Normal RBC, Urine Auto 2 /hpf 0-3 /hpf Ava l [facility]: 830 [facility] Normal Bacteria, Urine Auto negative negati ve [facility]: 830 [facility] Normal Squamous Epithelial Cell Ur AU 0 /hp f 0-6 /hpf [facility]: 830 [facility] Normal Mucus, Urine small negative [facility]: 830 [facility] Normal Hyaline Cast, Urine Auto 0 /lpf 0-1 /lpf [facility]: 830 [facility] Past Encounters 10/26/2020 Posttraumatic Stress Disorder; Bipolar II Disorder [facility] [address] [place] [phone], Ph. 09/30/2020 Posttraumatic Stress Disorder; Bipolar II Disorder [facility]: [address] [place] [phone], Ph. 09/23/2020 Adenocarcinoma of Lung; Administration of Influenza Vaccine Pa Mcdonough MD: [address] [place] [phone], Ph. 09/14/2020 Posttraumatic Stress Disorder; Bipolar II Disorder [facility] [address] [place] [phone], Ph. 09/01/2020 Posttraumatic Stress Disorder; Bipolar II Disorder Abbi [facility]: [address] [place] [phone], Ph. 08/26/2020 Posttraumatic Stress Disorder; Bipolar II Disorder Abbi [facility]: [address] [place] [phone], Ph. 08/18/2020 Bipolar II [facility] [address] [place] [phone], Ph. 08/18/2020 Increased Frequency of Urination Pa Mcdonough MD: [address] [place] [phone], Ph. 08/06/2020 Bipolar II Disorder Abbi Snyder, [facility] [place]: [address] [place] [phone], Ph. 08/04/2020 Bipolar II Disorder Abbi Snyder [facility] [place]: [address] [place] [phone], Ph. Social History Tobacco Smoking Status Former Smoker Vaccine List Vaccine Type influenza, injectable, quadrivalent, pre servative free 09/23/20200.5 mL influenza, seasonal, injectable 10/29/20150.5 mL 11/29/20170.5 mL Plan of Care Reminders Provider Appointments None recorded. Lab None recorded. Referral None recorded. Procedures None recorded. Surgeries None recorded. Imaging None recorded. Vitals 09/23/2020 01:40PM TCM Height Weight BMI Blood Pressure 63 in 148 lbs 2 oz 26.2 kg/m2 117/74 mm[Hg] 08/18/2020 11:20AM ESTABLISHED [id number] Height Weight BMI Blood Pressure 63 in 141 lbs 1 oz 25 kg/m2 114/80 mm[Hg] 05/31/2020 Height Weight 63 in 131 lbs 8 oz 04/19/2020 Height Weight 63 in 122 lbs 8 oz 04/02/2020 Height Weight Blood Pressure 63 in 120 lbs 99/68 mm[Hg] 04/01/2020 Height Weight 63 in 120 lbs 6.08 oz 03/15/2020 Height Weight Blood Pressure 63 in 123 lbs 134/83 mm[Hg] 03/04/2020 Height Weight 63 in 124 lbs 2.08 oz 02/19/2020 Height Weight 63 in 124 lbs 2.08 oz 02/12/2020 Height Weight 63 in 125 lbs 2.08 oz 02/06/2020 Height Weight Blood Pressure 63 in 119 lbs 6.08 oz 120/79 mm[Hg] 01/29/2020 Height Weight 63 in 118 lbs 8.96 oz 01/22/2020 Height Weight 63 in 121 lbs 01/15/2020 Height Weight 63 in 118 lbs 6.08 oz 01/13/2020 Height Weight Blood Pressure 63 in 118 lbs 9.6 oz 131/88 mm[Hg] 12/09/2019 Height Weight Blood Pressure 66 in 122 lbs 100/71 mm[Hg] 12/08/2019 Height Weight 66 in 119 lbs 10/30/2019 Height Weight 66 in 128 lbs 10/16/2019 Height Weight Blood Pressure 66 in 126 lbs 4 oz 98/72 mm[Hg] 09/25/2019 Height Weight 66 in 128 lbs 8 oz 09/18/2019 Height Weight Blood Pressure 66 in 131 lbs 2.08 oz 112/85 mm[Hg] 09/16/2019 Height Weight Blood Pressure 66 in 132 lbs 105/83 mm[Hg] 09/09/2019 Height Weight Blood Pressure 66 in 125 lbs 4 oz 127/96 mm[Hg] 09/02/2019 Height Weight Blood Pressure 66 in 124 lbs 8 oz 136/85 mm[Hg] 08/18/2019 Height Weight 66 in 138 lbs 8 oz 07/01/2019 Height Weight Blood Pressure 66 in 136 lbs 118/92 mm[Hg] 05/07/2019 Height Weight Blood Pressure 66 in 143 lbs 121/89 mm[Hg] 04/16/2019 Height Weight Blood Pressure 66 in 143 lbs 109/82 mm[Hg] 04/04/2019 Height Weight Blood Pressure 66 in 144 lbs 127/88 mm[Hg] 02/11/2019 Height Weight Blood Pressure 66 in 147 lbs 2.08 oz 106/80 mm[Hg] 01/07/2019 Height Weight Blood Pressure 66 in 148 lbs 2.08 oz 113/ 12/25/2018 Height Weight Blood Pressure 66 in 148 lbs 120/92 mm[Hg] 11/27/2018 Height Weight Blood Pressure 66 in 131 lbs 2.08 oz 131/94 mm[Hg] 10/24/2018 Height Weight Blood Pressure 66 in 157 lbs 6.08 oz 97/75 mm[Hg]
--- OUTSIDE RECORDS SUMMARY | 2020-11-12 18:58 | CCD ---
Author Organization Unknown Address [address] [place] [address] Phone [phone] Care Team Providers Care Bag Patcher Name Role Phone DRE BRUCE 129 [phone] DEVI BOWIE 114 [phone] [facility] 107 [phone] Allergies Code Code System Name Reaction Severity Status Onset 20240522 RxNorm Motrin Active 05/18/2016 Penicillin Active 05/18/2016 3640 RxNorm Doxycycline Active 09/16/2019 Notes: ASPRIN - Reaction: addictive Medications Name Status Start Date Stop Date albuterol sulfate 2.5 mg/3 mL (0.083 %) solution for nebulizatio n Active Not available amitriptyline 10 mg tablet Active Not a vailable atorvastatin 10 mg tablet Active Not av ailable carisoprodol 350 mg tablet Active Not a [...] Active Not available furosemide 40 mg tablet Completed 11/08/19 21 hydrocodone 5 mg-acetaminophen 325 mg tablet Active Not available ketorolac 10 mg tablet Completed 0 lamotrigine 100 mg tablet Active Not av ailable levothyroxine 88 mcg tablet Active Not available Linzess 290 mcg capsule one tablet daily Active Not available nebulizer accessories misc Active Not a vailable oxycodone-acetaminophen 5 mg-325 mg tablet Active Not available prazosin 1 mg capsule Completed 08/19/2020 quetiapine 100 mg tablet Completed quetiapine 400 mg tablet Completed risperidone 0.25 mg tablet Active Not a vailable sucralfate 100 mg/mL oral suspension Completed 08/19/2020 [...] Chronic Tension-type Headache Active 02/06/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 History Acute [...] White Blood Count 8.2 10 4.0-10.0 10 [facility]: [address] [place] [address] Low Red Blood Count 3.22 10 4.00-5.40 10 [facility]: [address] [place] [address] Low Hemoglobin 10.2 g/dL 12.0-15.5 g/dL [facility]: [address] [place] [address] Low Hematocrit 31.7 % 36.0-47.0 % [facility]: [address] [place] [address] High Mean Corpuscular Volume 98.4 fL 80.0 -96.0 fL [facility]: [address] [place] [address] Normal Mean Corpuscular Hemoglobin 31.7 pg 27.0-33.0 pg [facility]: [address] [place] [address] Normal Mean Corpuscular HGB Conc 32.2 g/dL 32.0-36.5 g/dL [facility]: [address] [place] [address] Normal Red Cell Distribution Width 12.8 % 1 1.5-14.5 % [facility]: [address] [place] [address] Normal Platelet Count, Automated 253 10 150 -450 10 [facility]: [address] [place] [address] High Neutrophils % 73.6 % 36.0-66.0 % [facility]: [address] [facility] Low Lymph % 8.7 % 24.0-44.0 % Final [facility]: [address] [facility] High [place] % 10.8 % 0.0-5.0 % Final [facility]: [address] [facility] High Eos % 5.6 % 0.0-3.0 % [facility]: [address] [facility] Normal Baso % 0.6 % 0.0-1.0 % [facility]: [address] [facility] Normal Immature Granulocyte % 0.7 % 0-3.0 % [facility]: 0 [facility] Normal Nucleated Red Blood Cell % 0.0 % 0- 0 % [facility]: [address] [facility] Normal Neutrophils # 6.0 10 1.5-8.5 10 [facility]: [address] [facility] Low Lymph # 0.7 10 1.5-5.0 10 [facility]: [address] [facility] High [place] # 0.9 10 0.0-0.8 10 [facility]: 0 [facility] Normal Eos # 0.5 10 0.0-0.5 10 [facility]: [address] [facility] Normal Baso # 0.1 10 0.0-0.2 10 [facility]: [address] [facility] 09/20/2020 BMP, Serum or Plasma High Glucose, Fastin g 103 mg/dL 70-100 mg/dL [facility]: 83 0 [facility] Normal Blood Urea Nitrogen 11 mg/dL 7-18 mg /dL [facility]: 0 [facility] Normal Creatinine for GFR 0.69 mg/dL 0.55-1 .30 mg/dL [facility]: 0 [facility] Normal Glomerular Filtration Rate > 60.0 >5 1 [facility]: [address] [place] [address] Normal Sodium Level 138 mEq/L 136-145 mEq/L [facility]: [address] [place] [address] Normal Potassium Serum 4.4 mEq/L 3.5-5.1 mE q/L [facility]: [address] [place] [address] High Chloride Level 109 mEq/L 98-107 mEq/ L [facility]: [address] [place] [address] Normal Carbon Dioxide Level 24 mEq/L 21-32 mEq/L [facility]: [address] [place] [address] Low Anion Gap 5 mEq/L 8-16 mEq/L [facility]: [address] [place] [address] Normal Calcium Level 8.6 mg/dL 8.5-10.1 mg/ dL [facility]: [address] [place] [address] 09/19/2020 CBC W/ Auto Diff Normal White Blood Count 7.1 10 4.0-10.0 10 [facility]: [address] [place] [address] Low Red Blood Count 3.02 10 4.00-5.40 10 [facility]: [address] [place] [address] Low Hemoglobin 9.5 g/dL 12.0-15.5 g/dL F [facility]al [facility]: [address] [place] [address] Low Hematocrit 30.2 % 36.0-47.0 % [facility]: [address] [place] [address] High Mean Corpuscular Volume 100.0 fL 80. 0-96.0 fL [facility]: [address] [place] [address] Normal Mean Corpuscular Hemoglobin 31.5 pg 27.0-33.0 pg [facility]: [address] [place] [address] Low Mean Corpuscular HGB Conc 31.5 g/dL 32.0-36.5 g/dL [facility]: [address] [place] [address] Normal Red Cell Distribution Width 13.2 % 1 1.5-14.5 % [facility]: [address] [place] [address] Normal Platelet Count, Automated 220 10 150 -450 10 [facility]: [address] [place], [place] [address] Normal Neutrophils % 62.8 % 36.0-66.0 % [facility]: [address] [facility] Low Lymph % 17.8 % 24.0-44.0 % [facility]: [address] [facility] High [place] % 11.7 % 0.0-5.0 % [facility]: [address] [facility] High Eos % 6.5 % 0.0-3.0 % [facility]: [address] [facility] Normal Baso % 0.4 % 0.0-1.0 % [facility]: [address] [place] [address] Normal Immature Granulocyte % 0.8 % 0-3.0 % [facility]: [address] [place] [address] Normal Nucleated Red Blood Cell % 0.0 % 0- 0 % [facility]: 0 [facility] Normal Neutrophils # 4.5 10 1.5-8.5 10 [facility]: 0 [facility] Low Lymph # 1.3 10 1.5-5.0 10 [facility]: 0 [facility] Normal [place] # 0.8 10 0.0-0.8 10 [facility]: 0 [facility] Normal Eos # 0.5 10 0.0-0.5 10 [facility]: 0 [facility] Normal Baso # 0.0 10 0.0-0.2 10 [facility]: [address] [place] [address] 09/19/2020 BMP, Serum or Plasma Normal Glucose, Fastin g 87 mg/dL 70-100 mg/dL [facility]: 83 0 [facility] Normal Blood Urea Nitrogen 16 mg/dL 7-18 mg /dL [facility]: 0 [facility] Normal Creatinine for GFR 0.75 mg/dL 0.55-1 .30 mg/dL [facility]: 0 [facility] Normal Glomerular Filtration Rate > 60.0 >5 1 [facility]: [address] [place] [address] Normal Sodium Level 139 mEq/L 136-145 mEq/L [facility]: [address] [place] [address] Normal Potassium Serum 4.5 mEq/L 3.5-5.1 mE q/L [facility]: [address] [place] [address] High Chloride Level 109 mEq/L 98-107 mEq/ L [facility]: [address] [place] [address] Normal Carbon Dioxide Level 24 mEq/L 21-32 mEq/L [facility]: [address] [place] [address] Low Anion Gap 6 mEq/L 8-16 mEq/L [facility]: [address] [place] [address] Low Calcium Level 8.3 mg/dL 8.5-10.1 mg/ dL [facility]: [address] [place] [address] 09/18/2020 CBC W/ Auto Diff Normal White Blood Count 8.3 10 4.0-10.0 10 [facility]: [address] [place] [address] Low Red Blood Count 3.07 10 4.00-5.40 10 [facility]: [address] [place] [address] Low Hemoglobin 9.7 g/dL 12.0-15.5 g/dL F inal [facility]: [address] [place] [address] Low Hematocrit 30.2 % 36.0-47.0 % [facility]: [address] [place] [address] High Mean Corpuscular Volume 98.4 fL 80.0 -96.0 fL [facility]: [address] [place] [address] Normal Mean Corpuscular Hemoglobin 31.6 pg 27.0-33.0 pg [facility]: [address] [place] [address] Normal Mean Corpuscular HGB Conc 32.1 g/dL 32.0-36.5 g/dL [facility]: [address] [place] [address] Normal Red Cell Distribution Width 13.2 % 1 1.5-14.5 % [facility]: [address] [place] [address] Normal Platelet Count, Automated 208 10 150 -450 10 [facility]: [address] [facility] Normal Neutrophils % 65.9 % 36.0-66.0 % [facility]: [address] [facility] Low Lymph % 16.5 % 24.0-44.0 % [facility]: 8[address] [facility] [place] % 11.3 % 0.0-5.0 % [facility]: [address] [facility] High Eos % 5.5 % 0.0-3.0 % [facility]: [address] [facility] Normal Baso % 0.4 % 0.0-1.0 % [facility]: [address] [facility] Normal Immature Granulocyte % 0.4 % 0-3.0 % [facility]: [address] [facility] Normal Nucleated Red Blood Cell % 0.0 % 0- 0 % [facility]: [address] [facility] Normal Neutrophils # 5.5 10 1.5-8.5 10 [facility]: [address] [facility] Low Lymph # 1.4 10 1.5-5.0 10 [facility]: 8[address] [facility] [place] # 0.9 10 0.0-0.8 10 [facility]: [address] [facility] Normal Eos # 0.5 10 0.0-0.5 10 [facility]: [address] [facility] Normal Baso # 0.0 10 0.0-0.2 10 [facility]: [address] [facility] 09/18/2020 BMP, Serum or Plasma Normal Glucose, Fastin g 89 mg/dL 70-100 mg/dL [facility]: 83 0 [facility] Normal Blood Urea Nitrogen 17 mg/dL 7-18 mg /dL [facility]: 0 [facility] Normal Creatinine for GFR 0.76 mg/dL 0.55-1 .30 mg/dL [facility]: [address] [place] [address] Normal Glomerular Filtration Rate > 60.0 >5 1 [facility]: [address] [place] [address] Normal Sodium Level 140 mEq/L 136-145 mEq/L [facility]: [address] [place] [address] D Potassium Serum 4.7 mEq/L 3.5-5.1 mE q/L [facility]: [address] [place] [address] High Chloride Level 109 mEq/L 98-107 mEq/ L [facility]: [address] [place] [address] Normal Carbon Dioxide Level 28 mEq/L 21-32 mEq/L [facility]: [address] [place] [address] Low Anion Gap 3 mEq/L 8-16 mEq/L [facility]: [address] [place] [address] Low Calcium Level 8.3 mg/dL 8.5-10.1 mg/ dL [facility]: [address] [place] [address] 09/17/2020 CBC W/ Auto Diff Normal White Blood Count 8.7 10 4.0-10.0 10 [facility]: [address] [place] [address] Low Red Blood Count 3.19 10 4.00-5.40 10 [facility]: [address] [place] [address] Low Hemoglobin 9.9 g/dL 12.0-15.5 g/dL [facility]: [address] [place] [address] Low Hematocrit 32.2 % 36.0-47.0 % [facility]: [address] [place] [address] High Mean Corpuscular Volume 100.9 fL 80. 0-96.0 fL [facility]: [address] [place] [address] Normal Mean Corpuscular Hemoglobin 31.0 pg 27.0-33.0 pg [facility]: [address] [place] [address] Low Mean Corpuscular HGB Conc 30.7 g/dL 32.0-36.5 g/dL [facility]: [address] [place] [address] Normal Red Cell Distribution Width 13.7 % 1 1.5-14.5 % [facility]: [address] [facility] Normal Platelet Count, Automated 201 10 150 -450 10 [facility]: [address] [facility] High Neutrophils % 78.5 % 36.0-66.0 % [facility]: [address] [facility] Low Lymph % 11.2 % 24.0-44.0 % [facility]: [address] [facility] High [place] % 7.1 % 0.0-5.0 % Final [facility]: [address] [facility] Normal Eos % 2.0 % 0.0-3.0 % [facility]: [address] [facility] Normal Baso % 0.5 % 0.0-1.0 % [facility]: [address] [facility] Normal Immature Granulocyte % 0.7 % 0-3.0 % [facility]: [address] [facility] Normal Nucleated Red Blood Cell % 0.0 % 0- 0 % [facility]: [address] [facility] Normal Neutrophils # 6.8 10 1.5-8.5 10 [facility]: [address] [facility] Low Lymph # 1.0 10 1.5-5.0 10 [facility]: [address] [facility] Normal [place] # 0.6 10 0.0-0.8 10 [facility]: [address] [facility] Normal Eos # 0.2 10 0.0-0.5 10 [facility]: [address] [facility] Normal Baso # 0.0 10 0.0-0.2 10 [facility]: [address] [facility] 09/17/2020 BMP, Serum or Plasma Normal Glucose, Fastin g 84 mg/dL 70-100 mg/dL [facility]: 83 0 [facility] Normal Blood Urea Nitrogen 12 mg/dL 7-18 mg /dL [facility]: [address] [facility] Normal Creatinine for GFR 0.86 mg/dL 0.55-1 .30 mg/dL [facility]: [address] [facility] Normal Glomerular Filtration Rate > 60.0 >5 1 [facility]: [address] [facility] Normal Sodium Level 137 mEq/L 136-145 mEq/L [facility]: [address] [facility] Normal Potassium Serum 3.6 mEq/L 3.5-5.1 mE q/L [facility]: [address] [facility] High Chloride Level 108 mEq/L 98-107 mEq/ L [facility]: [address] [facility] Normal Carbon Dioxide Level 23 mEq/L 21-32 mEq/L [facility]: [address] [facility] Low Anion Gap 6 mEq/L 8-16 mEq/L [facility]: 0 [facility] Low Calcium Level 8.0 mg/dL 8.5-10.1 mg/ dL [facility]: [address] [facility] 09/16/2020 Gas Panel, Arterial Blood Normal ABG pH (Ar terial) 7.375 units 7.350-7.450 units [facility]: 83 0 [facility] Normal ABG Partial Pressure CO2 39.0 mmHg 3 5.0-45.0 mmHg [facility]: 0 [facility] High ABG Partial Pressure O2 149.4 mmHg 7 5.0-100.0 mmHg [facility]: [address] [facility] Normal ABG Total CO2 23.5 mEq/L 22.0-29.0 m Eq/L [facility]: [address] [facility] Normal Abg Hco3 22.3 mEq/L 22.0-26.0 mEq/L [facility]: [address] [facility] Low ABG Base Excess -2.6 -2.0-2.0 [facility]: [address] [facility] Normal ABG Standard HCO3 22.3 mEq/L 22.0-26 .0 mEq/L [facility]: [address] [facility] High ABG O2 Saturation 99.1 % 95.0-99.0 % [facility]: [address] [place] [address] 09/16/2020 CBC W/ Auto Diff Normal White Blood Count 9.9 10 4.0-10.0 10 [facility]: [address] [place] [address] Low Red Blood Count 3.20 10 4.00-5.40 10 [facility]: [address] [place] [address] Panic Low Hemoglobin 9.9 g/dL 12.0-15.5 g/d L [facility]: [address] [place] [address] Low Hematocrit 31.2 % 36.0-47.0 % [facility]: [address] [place] [address] High Mean Corpuscular Volume 97.5 fL 80.0 -96.0 fL [facility]: [address] [place] [address] Normal Mean Corpuscular Hemoglobin 30.9 pg 27.0-33.0 pg [facility]: [address] [place] [address] Low Mean Corpuscular HGB Conc 31.7 g/dL 32.0-36.5 g/dL [facility]: [address] [place] [address] Normal Red Cell Distribution Width 13.2 % 1 1.5-14.5 % [facility]: [address] [place] [address] Normal Platelet Count, Automated 238 10 150 -450 10 [facility]: 0 [facility] High Neutrophils % 74.0 % 36.0-66.0 % [facility]: 0 [facility] Low Lymph % 16.2 % 24.0-44.0 % [facility]: [address] [place] [address] High [place] % 9.1 % 0.0-5.0 % [facility]: 0 [facility] Normal Eos % 0.0 % 0.0-3.0 % [facility]: [address] [place] [address] Normal Baso % 0.3 % 0.0-1.0 % [facility]: [address] [place], [place] [address] Normal Immature Granulocyte % 0.4 % 0-3.0 % [facility]: [address] [facility] Normal Nucleated Red Blood Cell % 0.0 % 0- 0 % [facility]: [address] [facility] Normal Neutrophils # 7.3 10 1.5-8.5 10 [facility]: [address] [facility] Normal Lymph # 1.6 10 1.5-5.0 10 [facility]: [address] [facility] High [place] # 0.9 10 0.0-0.8 10 [facility]: [address] [facility] Normal Eos # 0.0 10 0.0-0.5 10 [facility]: [address] [facility] Normal Baso # 0.0 10 0.0-0.2 10 [facility]: 0 [facility] 09/16/2020 BMP, Serum or Plasma High Glucose, Fastin g 101 mg/dL 70-100 mg/dL [facility]: 83 0 [facility] Normal Blood Urea Nitrogen 11 mg/dL 7-18 mg /dL [facility]: [address] [place] [address] Normal Creatinine for GFR 0.58 mg/dL 0.55-1 .30 mg/dL [facility]: [address] [place] [address] Normal Glomerular Filtration Rate > 60.0 >5 1 [facility]: [address] [facility] Normal Sodium Level 141 mEq/L 136-145 mEq/L [facility]: 0 [facility] Normal Potassium Serum 4.1 mEq/L 3.5-5.1 mE q/L [facility]: 0 [facility] High Chloride Level 111 mEq/L 98-107 mEq/ L [facility]: 0 [facility] Normal Carbon Dioxide Level 23 mEq/L 21-32 mEq/L [facility]: 0 [facility] Low Anion Gap 7 mEq/L 8-16 mEq/L [facility]: [address] [place] [address] Low Calcium Level 7.9 mg/dL 8.5-10.1 mg/ dL [facility]: [address] [place] [address] 09/16/2020 Vancomycin, Trough, Serum Normal Va ncomycin Level Trough 17.2 ug/mL 10.0-20.0 ug/mL [facility] nter: [address] [place] [address] 09/15/2020 CBC W/ Auto Diff High White Blood Count 14.6 10 4.0-10.0 10 [facility]: [address] [place] [address] Low Red Blood Count 3.79 10 4.00-5.40 10 [facility]: [address] [place] [address] Normal Hemoglobin 12.2 g/dL 12.0-15.5 g/dL [facility]: [address] [place] [address] Normal Hematocrit 36.9 % 36.0-47.0 % [facility]: [address] [place] [address] High Mean Corpuscular Volume 97.4 fL 80.0 -96.0 fL [facility]: [address] [place] [address] Normal Mean Corpuscular Hemoglobin 32.2 pg 27.0-33.0 pg [facility]: [address] [place] [address] Normal Mean Corpuscular HGB Conc 33.1 g/dL 32.0-36.5 g/dL [facility]: [address] [place] [address] Normal Red Cell Distribution Width 13.2 % 1 1.5-14.5 % [facility]: [address] [place] [address] Normal Platelet Count, Automated 239 10 150 -450 10 [facility]: 0 [facility] High Neutrophils % 93.1 % 36.0-66.0 % [facility]: [address] [place] [address] Low Lymph % 4.2 % 24.0-44.0 % [facility]: 0 [facility] Normal [place] % 1.6 % 0.0-5.0 % [facility]: [address] [place], [place] [address] Normal Eos % 0.1 % 0.0-3.0 % [facility]: [address] [facility] Normal Baso % 0.5 % 0.0-1.0 % [facility]: [address] [facility] Normal Immature Granulocyte % 0.5 % 0-3.0 % [facility]: [address] [facility] Normal Nucleated Red Blood Cell % 0.0 % 0- 0 % [facility]: [address] [facility] High Neutrophils # 13.7 10 1.5-8.5 10 [facility]: [address] [facility] Low Lymph # 0.6 10 1.5-5.0 10 [facility]: [address] [facility] Normal [place] # 0.2 10 0.0-0.8 10 [facility]: [address] [facility] Normal Eos # 0.0 10 0.0-0.5 10 [facility]: [address] [facility] Normal Baso # 0.1 10 0.0-0.2 10 [facility]: [address] [facility] 09/15/2020 Gas Panel, Arterial Blood Low ABG pH (Ar terial) 7.266 units 7.350-7.450 units [facility]: 83 0 [facility] High ABG Partial Pressure CO2 47.1 mmHg 3 5.0-45.0 mmHg [facility]: [address] [facility] Normal ABG Partial Pressure O2 76.3 mmHg 75 .0-100.0 mmHg [facility]: [address] [facility] Normal ABG Total CO2 22.4 mEq/L 22.0-29.0 m Eq/L [facility]: [address] [facility] Low Abg Hco3 20.9 mEq/L 22.0-26.0 mEq/L [facility]: [address] [facility] Low ABG Base Excess -6.0 -2.0-2.0 [facility]: [address] [facility] Low ABG Standard HCO3 19.5 mEq/L 22.0-26 .0 mEq/L [facility]: 0 [facility] Low ABG O2 Saturation 93.8 % 95.0-99.0 % [facility]: 0 [facility] 09/15/2020 BMP, Serum or Plasma High Glucose, Fastin g 146 mg/dL 70-100 mg/dL [facility]: 83 0 [facility] Normal Blood Urea Nitrogen 15 mg/dL 7-18 mg /dL [facility]: [address] [place] [address] Normal Creatinine for GFR 0.60 mg/dL 0.55-1 .30 mg/dL [facility]: [address] [place] [address] Normal Glomerular Filtration Rate > 60.0 >5 1 [facility]: [address] [place] [address] Normal Sodium Level 137 mEq/L 136-145 mEq/L [facility]: 0 [facility] Normal Potassium Serum 4.1 mEq/L 3.5-5.1 mE q/L [facility]: 0 [facility] High Chloride Level 110 mEq/L 98-107 mEq/ L [facility]: 0 [facility] Normal Carbon Dioxide Level 23 mEq/L 21-32 mEq/L [facility]: [address] [place] [address] Low Anion Gap 4 mEq/L 8-16 mEq/L [facility]: 0 [facility] Low Calcium Level 8.3 mg/dL 8.5-10.1 mg/ dL [facility]: 0 [facility] 09/15/2020 Type + Screen, Serum Normal Blood Type A posit fatuma [facility]: 0 [facility] Normal Ab Screen (Indirect Ronal)vis negat fatuma [facility]: 0 [facility] 09/13/2020 Carboxyhemoglobin High Carboxyhemoglobin 1.8 % 0.0-1.5 % [facility]: [address] [facility] 09/13/2020 Cbc Normal White Blood Count 6.2 10 4.0-10. 0 10 [facility]: 0 [facility] Low Red Blood Count 3.93 10 4.00-5.40 10 [facility]: 0 [facility] Normal Hemoglobin 12.5 g/dL 12.0-15.5 g/dL [facility]: 0 [facility] Normal Hematocrit 38.9 % 36.0-47.0 % [facility]: [address] [place] [address] High Mean Corpuscular Volume 99.0 fL 80.0 -96.0 fL [facility]: [address] [place] [address] Normal Mean Corpuscular Hemoglobin 31.8 pg 27.0-33.0 pg [facility]: [address] [place] [address] Normal Mean Corpuscular HGB Conc 32.1 g/dL 32.0-36.5 g/dL [facility]: 0 [facility] Normal Red Cell Distribution Width 13.3 % 1 1.5-14.5 % [facility]: [address] [place] [address] Normal Platelet Count, Automated 258 10 150 -450 10 [facility]: [address] [place] [address] Normal Nucleated Red Blood Cell % 0.0 % 0- 0 % [facility]: 0 [facility] 09/13/2020 Partial Thromboplastin Time Normal Partial Thromboplastin Time 27.5 seconds 24.2-38.5 seconds [facility] nter: 0 [facility] 09/13/2020 BMP, Serum or Plasma Normal Glucose, Fastin g 86 mg/dL 70-100 mg/dL [facility]: 83 0 [facility] High Blood Urea Nitrogen 23 mg/dL 7-18 mg /dL [facility]: [address] [place] [address] Normal Creatinine for GFR 0.78 mg/dL 0.55-1 .30 mg/dL [facility]: [address] [place] [address] Normal Glomerular Filtration Rate > 60.0 >5 1 [facility]: 830 [facility] Normal Sodium Level 141 mEq/L 136-145 mEq/L [facility]: 830 [facility] Normal Potassium Serum 4.7 mEq/L 3.5-5.1 mE q/L [facility]: 830 [facility] High Chloride Level 112 mEq/L 98-107 mEq/ L [facility]: 830 [facility] Normal Carbon Dioxide Level 25 mEq/L 21-32 mEq/L [facility]: 830 [facility] Low Anion Gap 4 mEq/L 8-16 mEq/L [facility]: 0 [facility] Normal Calcium Level 8.7 mg/dL 8.5-10.1 mg/ dL [facility]: 830 [facility] 09/13/2020 Urinalysis, Dipstick Normal Appearance, Uri ne clear clear [facility]: 830 [facility] Normal Color, Urine yellow yellow [facility]: 830 [facility] Normal pH,urine 6.0 units 5.0-9.0 units Fin [facility]: 830 [facility] Normal Specific Oneco Urine Auto 1.019 1 .002-1.035 [facility]: 830 [facility] Normal Protein, Urine Auto negative mg/dL n egative mg/dL [facility]: 830 [facility] Normal Glucose, Urine (UA) Auto negative mg /dL negative mg/dL [facility]: 830 [facility] Normal Ketone, Urine Auto negative mg/dL ne gative mg/dL [facility]: 0 [facility] Normal Urobilinogen, Urine Auto 0.2 mg/dL 0 .0-2.0 mg/dL [facility]: 830 [facility] Normal Bilirubin, Urine Auto negative negat fatuma [facility]: 830 [facility] Normal Nitrite, Urine Auto negative negativ e [facility]: 830 [facility] Normal Leukocyte Esterase, Urine Auto negat fatuma negative [facility]: 830 [facility] Normal Blood, Urine Blood negative negative [facility]: 830 [facility] Normal WBC, Urine Auto 1 /hpf 0-3 /hpf [facility]: 830 [facility] High RBC, Urine Auto 5 /hpf 0-3 /hpf [facility]: 830 [facility] Normal Bacteria, Urine Auto negative negati ve [facility]: 830 [facility] Normal Squamous Epithelial Cell Ur AU 1 /hp f 0-6 /hpf [facility]: 830 [facility] Normal Mucus, Urine small negative [facility]: 830 [facility] Normal Hyaline Cast, Urine Auto 0 /lpf 0-1 /lpf [facility]: 830 [facility] 09/13/2020 Gas Panel, Arterial Blood Normal ABG pH (Ar terial) 7.375 units 7.350-7.450 units [facility]: 83 0 [facility] Low ABG Partial Pressure CO2 32.0 mmHg 3 5.0-45.0 mmHg [facility]: 830 [facility] Normal ABG Partial Pressure O2 88.2 mmHg 75 .0-100.0 mmHg [facility]: 830 [facility] Low ABG Total CO2 19.3 mEq/L 22.0-29.0 m Eq/L [facility]: 830 [facility] Low Abg Hco3 18.3 mEq/L 22.0-26.0 mEq/L [facility]: 830 [facility] Low ABG Base Excess -5.9 -2.0-2.0 [facility]: 830 [facility] Low ABG Standard HCO3 19.6 mEq/L 22.0-26 .0 mEq/L [facility]: 830 [facility] Normal ABG O2 Saturation 97.2 % 95.0-99.0 % [facility]: 830 [facility] 09/13/2020 PT/INR Normal Prothrombin Time 13.0 secon ds 12.5-14.3 seconds [facility]: 830 [facility] Normal Inr 0.96 [facility]: 830 [facility] 08/18/2020 Urinalysis, Dipstick Normal Appearance, Uri ne clear clear [facility]: 830 [facility] Normal Color, Urine yellow yellow [facility]: 830 [facility] Normal pH,urine 5.0 units 5.0-9.0 units Fin [facility]: 830 [facility] Normal Specific Oneco Urine Auto 1.015 1 .002-1.035 [facility]: 830 [facility] Normal Protein, Urine Auto negative mg/dL n egative mg/dL [facility]: 830 [facility] Normal Glucose, Urine (UA) Auto negative mg /dL negative mg/dL [facility]: 830 [facility] Normal Ketone, Urine Auto negative mg/dL ne gative mg/dL [facility]: 830 [facility] Normal Urobilinogen, Urine Auto 0.2 mg/dL 0 .0-2.0 mg/dL [facility]: 830 [facility] Normal Bilirubin, Urine Auto negative negat fatuma [facility]: 830 [facility] Normal Nitrite, Urine Auto negative negativ e [facility]: 830 [facility] High Leukocyte Esterase, Urine Auto 1+ negative [facility]: 830 [facility] High Blood, Urine Blood 1+ negative F inal [facility]: 830 [facility] High WBC, Urine Auto 10 /hpf 0-3 /hpf Fin [facility]: 830 [facility] Normal RBC, Urine Auto 2 /hpf 0-3 /hpf Ava l [facility]: 830 [facility] Normal Bacteria, Urine Auto negative negati ve Final [facility]: 830 [facility] Normal Squamous Epithelial Cell Ur AU 0 /hp f 0-6 /hpf [facility]: 830 [facility] Normal Mucus, Urine small negative Final [facility]: 830 [facility] Normal Hyaline Cast, Urine Auto 0 /lpf 0-1 /lpf Final [facility]: 830 [facility] Past Encounters 11/08/2020 Bipolar II Disorder; Mixed Anxiety and Depressive Disorder Constantin Izaguirre MD: [address] [place] [phone], Ph. 10/26/2020 Posttraumatic Stress Disorder; Bipolar II Disorder [facility]: [address] [place] [phone], Ph. 09/30/2020 Posttraumatic Stress Disorder; Bipolar II Disorder [facility]: [address] [place] [phone], Ph. 09/23/2020 Adenocarcinoma of Lung; Administration of Influenza Vaccine Pa Mcdonough MD: [address] [place] [phone], Ph. 09/14/2020 Posttraumatic Stress Disorder; Bipolar II Disorder [facility]: [address] [place] [phone], Ph. 09/01/2020 Posttraumatic Stress Disorder; Bipolar II Disorder [facility]: [address] [place] [phone], Ph. 08/26/2020 Posttraumatic Stress Disorder; Bipolar II Disorder [facility]: [address] [place] [phone], Ph. 08/18/2020 Bipolar II Disorder [facility]: [address] [place] [phone], Ph. 08/18/2020 Increased Frequency of Urination Pa Mcdonough MD: [address] [place] [phone], Ph. 08/06/2020 Bipolar II Disorder Abbi Snyder, [facility] [place]: [address] [place] [phone], Ph. 08/04/2020 Bipolar II Disorder Abbi Snyder [facility] [place]: [address] [place] [phone], Ph. Social History Tobacco Smoking Status Former Smoker Vaccine List Vaccine Type influenza, injectable, quadrivalent, pre servative free 09/23/20200.5 mL influenza, seasonal, injectable 10/29/20150.5 mL 11/29/20170.5 mL Plan of Care Reminders Provider Appointments None recorded. Lab None recorded. Referral None recorded. Procedures None recorded. Surgeries None recorded. Imaging None recorded. Vitals 11/08/2020 01:30PM TELEPSYCH 30 Height Weight BMI 63 in 152 lbs 3.2 oz 27 kg/m2 09/23/2020 01:40PM TCM Height Weight BMI Blood Pressure 63 in 148 lbs 2 oz 26.2 kg/m2 117/74 mm[Hg] 08/18/2020 11:20AM ESTABLISHED [id number] Height Weight BMI Blood Pressure 63 in [...]
--- OUTSIDE RECORDS SUMMARY | 2020-11-12 18:59 | CCD ---
Author Organization Unknown Address [address] [place] [address] Phone [phone] Care Team Providers Care Direct Service Provider Name Role Phone DRE BRUCE 129 [phone] DEVI BOWIE 114 [phone] [facility] 107 [phone] Allergies Code Code System Name Reaction Severity Status Onset [id number] RxNorm Motrin Active 05/18/2016 Penicillin Active 05/18/2016 3640 RxNorm Doxycycline Active 09/16/2019 Notes: ASPRIN - Reaction: addictive Medications Name Status Start Date Stop Date albuterol sulfate 2.5 mg/3 mL (0.083 %) solution for nebulizatio n Active Not available amitriptyline 10 mg tablet one daily Active Not available atorvastatin 10 mg tablet Active Not av ailable carisoprodol 350 mg tablet Active Not a vailable celecoxib 200 mg capsule Completed 020 Chantix Continuing Month Box 1 mg tablet Completed 09/21/2020 Chantix Starting Month Box 0.5 mg (11)-1 mg (42) tablets in dose pack Completed 09/21/2020 cholecalciferol (vitamin D3) 25 mcg (1,0 00 unit) capsule Take 1 capsule twice a day by oral route. Active Not available clonazepam 1 mg tablet [...] Chronic Tension-type Headache Active 02/06/2020 Hi story [place] [facility] Lung Active 03/15/2020 History Acute [...] White Blood Count 8.2 10 4.0-10.0 10 [facility]: [address] [place] [address] Low Red Blood Count 3.22 10 4.00-5.40 10 [facility]: [address] [place] [address] Low Hemoglobin 10.2 g/dL 12.0-15.5 g/dL [facility]: [address] [place] [address] Low Hematocrit 31.7 % 36.0-47.0 % [facility]: [address] [place] [address] High Mean Corpuscular Volume 98.4 fL 80.0 -96.0 fL [facility]: [address] [place] [address] Normal Mean Corpuscular Hemoglobin 31.7 pg 27.0-33.0 pg [facility]: [address] [place] [address] Normal Mean Corpuscular HGB Conc 32.2 g/dL 32.0-36.5 g/dL [facility]: [address] [place] [address] Normal Red Cell Distribution Width 12.8 % 1 1.5-14.5 % [facility]: [address] [place] [address] Normal Platelet Count, Automated 253 10 150 -450 10 [facility]: [address] [place] [address] High Neutrophils % 73.6 % 36.0-66.0 % [facility]: 830 [facility] Low Lymph % 8.7 % 24.0-44.0 % Final [facility]: 830 [facility] High [place] % 10.8 % 0.0-5.0 % Final [facility]: 830 [facility] High Eos % 5.6 % 0.0-3.0 % [facility]: 830 [facility] Normal Baso % 0.6 % 0.0-1.0 % [facility]: 830 [facility] Normal Immature Granulocyte % 0.7 % 0-3.0 % [facility]: [address] [place] [address] Normal Nucleated Red Blood Cell % 0.0 % 0- 0 % [facility]: 0 [facility] Normal Neutrophils # 6.0 10 1.5-8.5 10 [facility]: 830 [facility] Low Lymph # 0.7 10 1.5-5.0 10 [facility]: 0 [facility] High [place] # 0.9 10 0.0-0.8 10 [facility]: 0 [facility] Normal Eos # 0.5 10 0.0-0.5 10 [facility]: 0 [facility] Normal Baso # 0.1 10 0.0-0.2 10 [facility]: 0 [facility] 09/20/2020 BMP, Serum or Plasma High Glucose, Fastin g 103 mg/dL 70-100 mg/dL [facility]: 83 0 [facility] Normal Blood Urea Nitrogen 11 mg/dL 7-18 mg /dL [facility]: 0 [facility] Normal Creatinine for GFR 0.69 mg/dL 0.55-1 .30 mg/dL [facility]: 0 [facility] Normal Glomerular Filtration Rate > 60.0 >5 1 [facility]: [address] [place] [address] Normal Sodium Level 138 mEq/L 136-145 mEq/L [facility]: [address] [place] [address] Normal Potassium Serum 4.4 mEq/L 3.5-5.1 mE q/L [facility]: [address] [place] [address] High Chloride Level 109 mEq/L 98-107 mEq/ L [facility]: [address] [place] [address] Normal Carbon Dioxide Level 24 mEq/L 21-32 mEq/L [facility]: [address] [place] [address] Low Anion Gap 5 mEq/L 8-16 mEq/L [facility]: [address] [place] [address] Normal Calcium Level 8.6 mg/dL 8.5-10.1 mg/ dL [facility]: [address] [place] [address] 09/19/2020 CBC W/ Auto Diff Normal White Blood Count 7.1 10 4.0-10.0 10 [facility]: [address] [place] [address] Low Red Blood Count 3.02 10 4.00-5.40 10 [facility]: [address] [place] [address] Low Hemoglobin 9.5 g/dL 12.0-15.5 g/dL F inal [facility]: [address] [place] [address] Low Hematocrit 30.2 % 36.0-47.0 % [facility]: [address] [place] [address] High Mean Corpuscular Volume 100.0 fL 80. 0-96.0 fL [facility]: [address] [place] [address] Normal Mean Corpuscular Hemoglobin 31.5 pg 27.0-33.0 pg [facility]: [address] [place] [address] Low Mean Corpuscular HGB Conc 31.5 g/dL 32.0-36.5 g/dL [facility]: [address] [place] [address] Normal Red Cell Distribution Width 13.2 % 1 1.5-14.5 % [facility]: [address] [place] [address] Normal Platelet Count, Automated 220 10 150 -450 10 [facility]: 8[address] [facility] Normal Neutrophils % 62.8 % 36.0-66.0 % [facility]: 8[address] [facility] Low Lymph % 17.8 % 24.0-44.0 % Final [facility]: 830 [facility] High [place] % 11.7 % 0.0-5.0 % Final [facility]: 830 [facility] High Eos % 6.5 % 0.0-3.0 % [facility]: 8[address] [facility] Normal Baso % 0.4 % 0.0-1.0 % Final [facility]: 0 [facility] Normal Immature Granulocyte % 0.8 % 0-3.0 % [facility]: [address] [place] [address] Normal Nucleated Red Blood Cell % 0.0 % 0- 0 % [facility]: 0 [facility] Normal Neutrophils # 4.5 10 1.5-8.5 10 [facility]: 830 [facility] Low Lymph # 1.3 10 1.5-5.0 10 [facility]: 0 [facility] Normal [place] # 0.8 10 0.0-0.8 10 [facility]: 0 [facility] Normal Eos # 0.5 10 0.0-0.5 10 [facility]: 830 [facility] Normal Baso # 0.0 10 0.0-0.2 10 [facility]: 0 [facility] 09/19/2020 BMP, Serum or Plasma Normal Glucose, Fastin g 87 mg/dL 70-100 mg/dL [facility]: 83 0 [facility] Normal Blood Urea Nitrogen 16 mg/dL 7-18 mg /dL [facility]: 0 [facility] Normal Creatinine for GFR 0.75 mg/dL 0.55-1 .30 mg/dL [facility]: 0 [facility] Normal Glomerular Filtration Rate > 60.0 >5 1 [facility]: [address] [place] [address] Normal Sodium Level 139 mEq/L 136-145 mEq/L [facility]: [address] [place] [address] Normal Potassium Serum 4.5 mEq/L 3.5-5.1 mE q/L [facility]: [address] [place] [address] High Chloride Level 109 mEq/L 98-107 mEq/ L [facility]: [address] [place] [address] Normal Carbon Dioxide Level 24 mEq/L 21-32 mEq/L [facility]: [address] [place] [address] Low Anion Gap 6 mEq/L 8-16 mEq/L [facility]: [address] [place] [address] Low Calcium Level 8.3 mg/dL 8.5-10.1 mg/ dL [facility]: [address] [place] [address] 09/18/2020 CBC W/ Auto Diff Normal White Blood Count 8.3 10 4.0-10.0 10 [facility]: [address] [place] [address] Low Red Blood Count 3.07 10 4.00-5.40 10 [facility]: [address] [place] [address] Low Hemoglobin 9.7 g/dL 12.0-15.5 g/dL F inal [facility]: [address] [place] [address] Low Hematocrit 30.2 % 36.0-47.0 % [facility]: [address] [place] [address] High Mean Corpuscular Volume 98.4 fL 80.0 -96.0 fL [facility]: [address] [place] [address] Normal Mean Corpuscular Hemoglobin 31.6 pg 27.0-33.0 pg [facility]: [address] [place] [address] Normal Mean Corpuscular HGB Conc 32.1 g/dL 32.0-36.5 g/dL [facility]: [address] [place] [address] Normal Red Cell Distribution Width 13.2 % 1 1.5-14.5 % [facility]: [address] [place] [address] Normal Platelet Count, Automated 208 10 150 -450 10 [facility]: 8[address] [facility] Normal Neutrophils % 65.9 % 36.0-66.0 % [facility]: 830 [facility] Low Lymph % 16.5 % 24.0-44.0 % [facility]: 830 [facility] [place] % 11.3 % 0.0-5.0 % Final [facility]: 830 [facility] High Eos % 5.5 % 0.0-3.0 % [facility]: 8[address] [facility] Normal Baso % 0.4 % 0.0-1.0 % [facility]: 830 [facility] Normal Immature Granulocyte % 0.4 % 0-3.0 % [facility]: 8[address] [facility] Normal Nucleated Red Blood Cell % 0.0 % 0- 0 % [facility]: 830 [facility] Normal Neutrophils # 5.5 10 1.5-8.5 10 [facility]: 830 [facility] Low Lymph # 1.4 10 1.5-5.0 10 [facility]: 830 [facility] High [place] # 0.9 10 0.0-0.8 10 [facility]: 830 [facility] Normal Eos # 0.5 10 0.0-0.5 10 [facility]: 830 [facility] Normal Baso # 0.0 10 0.0-0.2 10 [facility]: 830 [facility] 09/18/2020 BMP, Serum or Plasma Normal Glucose, Fastin g 89 mg/dL 70-100 mg/dL [facility]: 83 0 [facility] Normal Blood Urea Nitrogen 17 mg/dL 7-18 mg /dL [facility]: 830 [facility] Normal Creatinine for GFR 0.76 mg/dL 0.55-1 .30 mg/dL [facility]: [address] [place] [address] Normal Glomerular Filtration Rate > 60.0 >5 1 [facility]: [address] [place] [address] Normal Sodium Level 140 mEq/L 136-145 mEq/L [facility]: 0 [facility] D Potassium Serum 4.7 mEq/L 3.5-5.1 mE q/L [facility]: [address] [place] [address] High Chloride Level 109 mEq/L 98-107 mEq/ L [facility]: [address] [place] [address] Normal Carbon Dioxide Level 28 mEq/L 21-32 mEq/L [facility]: [address] [place] [address] Low Anion Gap 3 mEq/L 8-16 mEq/L [facility]: [address] [place] [address] Low Calcium Level 8.3 mg/dL 8.5-10.1 mg/ dL [facility]: [address] [place] [address] 09/17/2020 CBC W/ Auto Diff Normal White Blood Count 8.7 10 4.0-10.0 10 [facility]: [address] [place] [address] Low Red Blood Count 3.19 10 4.00-5.40 10 [facility]: [address] [place] [address] Low Hemoglobin 9.9 g/dL 12.0-15.5 g/dL F inal [facility]: [address] [place] [address] Low Hematocrit 32.2 % 36.0-47.0 % [facility]: [address] [place] [address] High Mean Corpuscular Volume 100.9 fL 80. 0-96.0 fL [facility]: [address] [place] [address] Normal Mean Corpuscular Hemoglobin 31.0 pg 27.0-33.0 pg [facility]: [address] [place] [address] Low Mean Corpuscular HGB Conc 30.7 g/dL 32.0-36.5 g/dL [facility]: [address] [place] [address] Normal Red Cell Distribution Width 13.7 % 1 1.5-14.5 % [facility]: 8[address] [facility] Normal Platelet Count, Automated 201 10 150 -450 10 [facility]: 8[address] [facility] High Neutrophils % 78.5 % 36.0-66.0 % [facility]: 830 [facility] Low Lymph % 11.2 % 24.0-44.0 % [facility]: 830 [facility] High [place] % 7.1 % 0.0-5.0 % Final [facility]: 8[address] [facility] Normal Eos % 2.0 % 0.0-3.0 % [facility]: 8[address] [facility] Normal Baso % 0.5 % 0.0-1.0 % [facility]: 830 [facility] Normal Immature Granulocyte % 0.7 % 0-3.0 % [facility]: 8[address] [facility] Normal Nucleated Red Blood Cell % 0.0 % 0- 0 % [facility]: 8[address] [facility] Normal Neutrophils # 6.8 10 1.5-8.5 10 [facility]: 830 [facility] Low Lymph # 1.0 10 1.5-5.0 10 [facility]: 8[address] [facility] Normal [place] # 0.6 10 0.0-0.8 10 [facility]: 830 [facility] Normal Eos # 0.2 10 0.0-0.5 10 [facility]: 8[address] [facility] Normal Baso # 0.0 10 0.0-0.2 10 [facility]: 8[address] [facility] 09/17/2020 BMP, Serum or Plasma Normal Glucose, Fastin g 84 mg/dL 70-100 mg/dL [facility]: 83 0 [facility] Normal Blood Urea Nitrogen 12 mg/dL 7-18 mg /dL [facility]: 8[address] [facility] Normal Creatinine for GFR 0.86 mg/dL 0.55-1 .30 mg/dL [facility]: 8[address] [facility] Normal Glomerular Filtration Rate > 60.0 >5 1 [facility]: 8[address] [facility] Normal Sodium Level 137 mEq/L 136-145 mEq/L [facility]: 8[address] [facility] Normal Potassium Serum 3.6 mEq/L 3.5-5.1 mE q/L [facility]: 8[address] [facility] High Chloride Level 108 mEq/L 98-107 mEq/ L [facility]: 8[address] [facility] Normal Carbon Dioxide Level 23 mEq/L 21-32 mEq/L [facility]: 0 [facility] Low Anion Gap 6 mEq/L 8-16 mEq/L [facility]: 0 [facility] Low Calcium Level 8.0 mg/dL 8.5-10.1 mg/ dL [facility]: 0 [facility] 09/16/2020 Gas Panel, Arterial Blood Normal ABG pH (Ar terial) 7.375 units 7.350-7.450 units [facility]: 83 0 [facility] Normal ABG Partial Pressure CO2 39.0 mmHg 3 5.0-45.0 mmHg [facility]: 0 [facility] High ABG Partial Pressure O2 149.4 mmHg 7 5.0-100.0 mmHg [facility]: 830 [facility] Normal ABG Total CO2 23.5 mEq/L 22.0-29.0 m Eq/L [facility]: 830 [facility] Normal Abg Hco3 22.3 mEq/L 22.0-26.0 mEq/L [facility]: 0 [facility] Low ABG Base Excess -2.6 -2.0-2.0 Ava l [facility]: 830 [facility] Normal ABG Standard HCO3 22.3 mEq/L 22.0-26 .0 mEq/L [facility]: [address] [place] [address] High ABG O2 Saturation 99.1 % 95.0-99.0 % [facility]: [address] [place] [address] 09/16/2020 CBC W/ Auto Diff Normal White Blood Count 9.9 10 4.0-10.0 10 [facility]: [address] [place] [address] Low Red Blood Count 3.20 10 4.00-5.40 10 [facility]: [address] [place] [address] Panic Low Hemoglobin 9.9 g/dL 12.0-15.5 g/d L [facility]: [address] [place] [address] Low Hematocrit 31.2 % 36.0-47.0 % [facility]: [address] [place] [address] Mean Corpuscular Volume 97.5 fL 80.0 -96.0 fL [facility]: [address] [place] [address] Normal Mean Corpuscular Hemoglobin 30.9 pg 27.0-33.0 pg [facility]: [address] [place] [address] Low Mean Corpuscular HGB Conc 31.7 g/dL 32.0-36.5 g/dL [facility]: [address] [place] [address] Normal Red Cell Distribution Width 13.2 % 1 1.5-14.5 % [facility]: [address] [place] [address] Normal Platelet Count, Automated 238 10 150 -450 10 [facility]: [address] [place] [address] High Neutrophils % 74.0 % 36.0-66.0 % Fin [facility]: 0 [facility] Low Lymph % 16.2 % 24.0-44.0 % [facility]: 0 [facility] High [place] % 9.1 % 0.0-5.0 % [facility]: 0 [facility] Normal Eos % 0.0 % 0.0-3.0 % [facility]: 0 [facility] Normal Baso % 0.3 % 0.0-1.0 % [facility]: 830 [facility] Normal Immature Granulocyte % 0.4 % 0-3.0 % [facility]: 830 [facility] Normal Nucleated Red Blood Cell % 0.0 % 0- 0 % [facility]: 830 [facility] Normal Neutrophils # 7.3 10 1.5-8.5 10 [facility]: 830 [facility] Normal Lymph # 1.6 10 1.5-5.0 10 [facility]: 830 [facility] High [place] # 0.9 10 0.0-0.8 10 [facility]: 830 [facility] Normal Eos # 0.0 10 0.0-0.5 10 [facility]: 830 [facility] Normal Baso # 0.0 10 0.0-0.2 10 [facility]: 830 [facility] 09/16/2020 BMP, Serum or Plasma High Glucose, Fastin g 101 mg/dL 70-100 mg/dL [facility]: 83 0 [facility] Normal Blood Urea Nitrogen 11 mg/dL 7-18 mg /dL [facility]: 0 [facility] Normal Creatinine for GFR 0.58 mg/dL 0.55-1 .30 mg/dL [facility]: 0 [facility] Normal Glomerular Filtration Rate > 60.0 >5 1 [facility]: 830 [facility] Normal Sodium Level 141 mEq/L 136-145 mEq/L [facility]: 0 [facility] Normal Potassium Serum 4.1 mEq/L 3.5-5.1 mE q/L [facility]: 0 [facility] High Chloride Level 111 mEq/L 98-107 mEq/ L [facility]: 830 [facility] Normal Carbon Dioxide Level 23 mEq/L 21-32 mEq/L [facility]: 0 [facility] Low Anion Gap 7 mEq/L 8-16 mEq/L [facility]: [address] [place] [address] Low Calcium Level 7.9 mg/dL 8.5-10.1 mg/ dL [facility]: [address] [place] [address] 09/16/2020 Vancomycin, Trough, Serum Normal Va ncomycin Level Trough 17.2 ug/mL 10.0-20.0 ug/mL [facility] nter: [address] [place] [address] 09/15/2020 CBC W/ Auto Diff High White Blood Count 14.6 10 4.0-10.0 10 [facility]: [address] [place] [address] Low Red Blood Count 3.79 10 4.00-5.40 10 [facility]: [address] [place] [address] Normal Hemoglobin 12.2 g/dL 12.0-15.5 g/dL [facility]: [address] [place] [address] Normal Hematocrit 36.9 % 36.0-47.0 % [facility]: [address] [place] [address] High Mean Corpuscular Volume 97.4 fL 80.0 -96.0 fL [facility]: [address] [place] [address] Normal Mean Corpuscular Hemoglobin 32.2 pg 27.0-33.0 pg [facility]: [address] [place] [address] Normal Mean Corpuscular HGB Conc 33.1 g/dL 32.0-36.5 g/dL [facility]: [address] [place] [address] Normal Red Cell Distribution Width 13.2 % 1 1.5-14.5 % [facility]: [address] [place] [address] Normal Platelet Count, Automated 239 10 150 -450 10 [facility]: 0 [facility] High Neutrophils % 93.1 % 36.0-66.0 % [facility]: 0 [facility] Low Lymph % 4.2 % 24.0-44.0 % [facility]: 0 [facility] Normal [place] % 1.6 % 0.0-5.0 % [facility]: 830 [facility] Normal Eos % 0.1 % 0.0-3.0 % [facility]: 830 [facility] Normal Baso % 0.5 % 0.0-1.0 % [facility]: 830 [facility] Normal Immature Granulocyte % 0.5 % 0-3.0 % [facility]: 830 [facility] Normal Nucleated Red Blood Cell % 0.0 % 0- 0 % [facility]: 830 [facility] High Neutrophils # 13.7 10 1.5-8.[address] [facility]: 830 [facility] Low Lymph # 0.6 10 1.5-5.0 10 [facility]: 830 [facility] Normal [place] # 0.2 10 0.0-0.8 10 [facility]: 830 [facility] Normal Eos # 0.0 10 0.0-0.5 10 [facility]: 830 [facility] Normal Baso # 0.1 10 0.0-0.2 10 [facility]: 830 [facility] 09/15/2020 Gas Panel, Arterial Blood Low ABG pH (Ar terial) 7.266 units 7.350-7.450 units [facility]: 83 0 [facility] High ABG Partial Pressure CO2 47.1 mmHg 3 5.0-45.0 mmHg [facility]: 830 [facility] Normal ABG Partial Pressure O2 76.3 mmHg 75 .0-100.0 mmHg [facility]: 830 [facility] Normal ABG Total CO2 22.4 mEq/L 22.0-29.0 m Eq/L [facility]: 830 [facility] Low Abg Hco3 20.9 mEq/L 22.0-26.0 mEq/L [facility]: 8[address] [facility] Low ABG Base Excess -6.0 -2.0-2.0 Ava l [facility]: [address] [facility] Low ABG Standard HCO3 19.5 mEq/L 22.0-26 .0 mEq/L [facility]: 0 [facility] Low ABG O2 Saturation 93.8 % 95.0-99.0 % [facility]: 0 [facility] 09/15/2020 BMP, Serum or Plasma High Glucose, Fastin g 146 mg/dL 70-100 mg/dL [facility]: 83 0 [facility] Normal Blood Urea Nitrogen 15 mg/dL 7-18 mg /dL [facility]: [address] [place] [address] Normal Creatinine for GFR 0.60 mg/dL 0.55-1 .30 mg/dL [facility]: [address] [place] [address] Normal Glomerular Filtration Rate > 60.0 >5 1 [facility]: [address] [facility] Normal Sodium Level 137 mEq/L 136-145 mEq/L [facility]: 0 [facility] Normal Potassium Serum 4.1 mEq/L 3.5-5.1 mE q/L [facility]: 0 [facility] High Chloride Level 110 mEq/L 98-107 mEq/ L [facility]: 0 [facility] Normal Carbon Dioxide Level 23 mEq/L 21-32 mEq/L [facility]: 0 [facility] Low Anion Gap 4 mEq/L 8-16 mEq/L [facility]: [address] [place] [address] Low Calcium Level 8.3 mg/dL 8.5-10.1 mg/ dL [facility]: 0 [facility] 09/15/2020 Type + Screen, Serum Normal Blood Type A posit fatuma [facility]: 0 [facility] Normal Ab Screen (Indirect Ronal)vis negat fatuma [facility]: 0 [facility] 09/13/2020 Carboxyhemoglobin High Carboxyhemoglobin 1.8 % 0.0-1.5 % [facility]: [address] [facility] 09/13/2020 Cbc Normal White Blood Count 6.2 10 4.0-10. 0 10 [facility]: 0 [facility] Low Red Blood Count 3.93 10 4.00-5.40 10 [facility]: [address] [facility] Normal Hemoglobin 12.5 g/dL 12.0-15.5 g/dL [facility]: 0 [facility] Normal Hematocrit 38.9 % 36.0-47.0 % [facility]: [address] [place] [address] High Mean Corpuscular Volume 99.0 fL 80.0 -96.0 fL [facility]: [address] [place] [address] Normal Mean Corpuscular Hemoglobin 31.8 pg 27.0-33.0 pg [facility]: [address] [place] [address] Normal Mean Corpuscular HGB Conc 32.1 g/dL 32.0-36.5 g/dL [facility]: 0 [facility] Normal Red Cell Distribution Width 13.3 % 1 1.5-14.5 % [facility]: 0 [facility] Normal Platelet Count, Automated 258 10 150 -450 10 [facility]: [address] [place] [address] Normal Nucleated Red Blood Cell % 0.0 % 0- 0 % [facility]: [address] [facility] 09/13/2020 Partial Thromboplastin Time Normal Partial Thromboplastin Time 27.5 seconds 24.2-38.5 seconds [facility] nter: 0 [facility] 09/13/2020 BMP, Serum or Plasma Normal Glucose, Fastin g 86 mg/dL 70-100 mg/dL [facility]: 83 0 [facility] High Blood Urea Nitrogen 23 mg/dL 7-18 mg /dL [facility]: [address] [place] [address] Normal Creatinine for GFR 0.78 mg/dL 0.55-1 .30 mg/dL [facility]: [address] [facility] Normal Glomerular Filtration Rate > 60.0 >5 1 [facility]: [address] [facility] Normal Sodium Level 141 mEq/L 136-145 mEq/L [facility]: [address] [facility] Normal Potassium Serum 4.7 mEq/L 3.5-5.1 mE q/L [facility]: [address] [facility] High Chloride Level 112 mEq/L 98-107 mEq/ L [facility]: [address] [facility] Normal Carbon Dioxide Level 25 mEq/L 21-32 mEq/L [facility]: [address] [facility] Low Anion Gap 4 mEq/L 8-16 mEq/L [facility]: 0 [facility] Normal Calcium Level 8.7 mg/dL 8.5-10.1 mg/ dL [facility]: [address] [facility] 09/13/2020 Urinalysis, Dipstick Normal Appearance, Uri ne clear clear [facility]: [address] [facility] Normal Color, Urine yellow yellow [facility]: [address] [facility] Normal pH,urine 6.0 units 5.0-9.[address] [facility]: [address] [facility] Normal Specific [place] Urine Auto 1.019 1 .002-1.035 [facility]: [address] [facility] Normal Protein, Urine Auto negative mg/dL n egative mg/dL [facility]: [address] [facility] Normal Glucose, Urine (UA) Auto negative mg /dL negative mg/dL [facility]: [address] [facility] Normal Ketone, Urine Auto negative mg/dL ne gative mg/dL [facility]: [address] [facility] Normal Urobilinogen, Urine Auto 0.2 mg/dL 0 .0-2.0 mg/dL [facility]: [address] [facility] Normal Bilirubin, Urine Auto negative negat fatuma [facility]: [address] [facility] Normal Nitrite, Urine Auto negative negativ e [facility]: [address] [facility] Normal Leukocyte Esterase, Urine Auto negat fatuma negative [facility]: [address] [facility] Normal Blood, Urine Blood negative negative [facility]: [address] [facility] Normal WBC, Urine Auto 1 /hpf 0-3 /hpf [facility]: [address] [facility] High RBC, Urine Auto 5 /hpf 0-3 /hpf [facility]: [address] [facility] Normal Bacteria, Urine Auto negative negati ve [facility]: [address] [facility] Normal Squamous Epithelial Cell Ur AU 1 /hp f 0-6 /hpf [facility]: [address] [facility] Normal Mucus, Urine small negative [facility]: [address] [facility] Normal Hyaline Cast, Urine Auto 0 /lpf 0-1 /lpf [facility]: [address] [facility] 09/13/2020 Gas Panel, Arterial Blood Normal ABG pH (Ar terial) 7.375 units 7.350-7.450 units [facility]: 83 0 [facility] Low ABG Partial Pressure CO2 32.0 mmHg 3 5.0-45.0 mmHg [facility]: [address] [facility] Normal ABG Partial Pressure O2 88.2 mmHg 75 .0-100.0 mmHg [facility]: [address] [facility] Low ABG Total CO2 19.3 mEq/L 22.0-29.0 m Eq/L [facility]: [address] [facility] Low Abg Hco3 18.3 mEq/L 22.0-26.0 mEq/L [facility]: [address] [facility] Low ABG Base Excess -5.9 -2.0-2.0 [facility]: [address] [facility] Low ABG Standard HCO3 19.6 mEq/L 22.0-26 .0 mEq/L [facility]: [address] [facility] Normal ABG O2 Saturation 97.2 % 95.0-99.0 % [facility]: [address] [facility] 09/13/2020 PT/INR Normal Prothrombin Time 13.0 secon ds 12.5-14.3 seconds [facility]: [address] [facility] Normal Inr 0.96 [facility]: [address] [facility] 08/18/2020 Urinalysis, Dipstick Normal Appearance, Uri ne clear clear [facility]: [address] [facility] Normal Color, Urine yellow yellow [facility]: [address] [facility] Normal pH,urine 5.0 units 5.0-9.0 units [facility]: [address] [facility] Normal Specific [place] Urine Auto 1.015 1 .002-1.035 [facility]: [address] [facility] Normal Protein, Urine Auto negative mg/dL n egative mg/dL [facility]: [address] [facility] Normal Glucose, Urine (UA) Auto negative mg /dL negative mg/dL [facility]: [address] [facility] Normal Ketone, Urine Auto negative mg/dL ne gative mg/dL [facility]: [address] [facility] Normal Urobilinogen, Urine Auto 0.2 mg/dL 0 .0-2.0 mg/dL [facility]: [address] [facility] Normal Bilirubin, Urine Auto negative negat fatuma [facility]: [address] [facility] Normal Nitrite, Urine Auto negative negativ e [facility]: [address] [facility] High Leukocyte Esterase, Urine Auto 1+ negative [facility]: [address] [facility] High Blood, Urine Blood 1+ negative F inal [facility]: [address] [facility] High WBC, Urine Auto 10 /hpf 0-3 /hpf Fin [facility]: [address] [facility] Normal RBC, Urine Auto 2 /hpf 0-3 /hpf Ava l [facility]: [address] [facility] Normal Bacteria, Urine Auto negative negati ve Final [facility]: [address] [facility] Normal Squamous Epithelial Cell Ur AU 0 /hp f 0-6 /hpf Final [facility]: [address] [facility] Normal Mucus, Urine small negative Final [facility]: [address] [facility] Normal Hyaline Cast, Urine Auto 0 /lpf 0-1 /lpf Final [facility]: [address] [facility] Past Encounters 09/30/2020 Posttraumatic Stress Disorder; Bipolar II Disorder [facility] [address] [place] [phone], Ph. 09/23/2020 Adenocarcinoma of Lung; Administration of Influenza Vaccine Pa Mcdonough MD: [address] [place] [phone], Ph. 09/14/2020 Posttraumatic Stress Disorder; Bipolar II Disorder [facility] [address] [place] [phone], Ph. 09/01/2020 Posttraumatic Stress Disorder; Bipolar II Disorder [facility] [address] [place] [phone], Ph. 08/26/2020 Posttraumatic Stress Disorder; Bipolar II Disorder [facility] [address] [place] [phone], Ph. 08/18/2020 Bipolar II Disorder [facility]: [address] [place] [phone], Ph. 08/18/2020 Increased Frequency of Urination Pa Mcdonough MD: [address] [place] [phone], Ph. 08/06/2020 Bipolar II Disorder [facility]: [address] [place] [phone], Ph. 08/04/2020 Bipolar II Disorder Abbi Snyder, [facility] [address] [place] [phone], Ph. Social History Tobacco Smoking Status Former [...] 26.2 kg/m2 117/74 mm[Hg] 08/18/2020 11:20AM ESTABLISHED [id number] Height Weight BMI Blood Pressure 63 in [...]
--- OUTSIDE RECORDS SUMMARY | 2020-11-12 18:59 | CCD | Continuity of Care Document ---
Author Author Sara DIALLO M.D. Organization Unknown Address [address] [place] [address] Phone [phone] Care Team Providers Care [employer] Name Role Phone rTaci Wheeler M.D. AUTM [phone] Pa Mcdonough M.D. AUTM [phone] Kaushik Diallo M.D. AUTM [phone] Problems Active Problems Provider Date Emphysematous bronchitis Joseph Choe MD Onset: 12/10/19 15 Noncompliance with treatment Joseph Choe MD Onset: 07/15 Extrinsic asthma with asthma attack Myrna Alcala, A.N. P. Onset: 03/06/2013 Obesity Joseph Choe MD Onset: 01/02/2013 Asthma without status asthmaticus Joseph Choe MD Onset: 10/01/2012 Cough Myrna Alcala, A.N.P. Onset: 2011 Dyspnea Myrna Alcala, A.N.P. Onset: 2011 Tachycardia Myrna Alcala, A.N.P. Onset: 2011 Sleep apnea Myrna Alcala, A.N.P. Onset: 2010 Disturbance of consciousness Myrna Alcala A.N.P. Onse t: 07/18/2011 Tobacco user Myrna Alcala, A.N.P. Onset: 2010 Social History Type Date Description Comments Sex Unknown ETOH Use Rarely Wine Recreational Drug Use Smokes marijuana daily Tobacco Use Start: 10/15/80 End: 10/15/19 Patient is a forme r smoker 1ppd x38 years Smoking Status Reviewed: 10/11/20 Patient is a former smoker 1p pd x38 years Allergies, Adverse Reactions, Alerts Active Allergies Reaction Severity Comments Date Penicillin 05/02/2016 Aspirin 05/02/2016 Ibuprofen Nausea and Vomiting, Urticaria 05/14/2012 Ibuprofen Urticaria 07/18/2011 Doxycycline 08/26/2020 Medications Active Medications SIG Qnty Indications Ordering Provide r Date Nebulizer Kit/Tubing/Mouthpiece K it use with nebulizer as directed 2units J45.40 Joseph Choe MD 1 11/23/2019 Nebulizer Misc compressor, use as directed 1unrj J45.40 Joseph Choe MD 09/22/2020 Albuterol Sulfate (2 .5mg/3ML) 0.083% Nebulizer 1 vial by nebulizer every four hours as needed 225ml J 45.40 Joseph Choe MD 09/22/2020 Duragesic-25 25mcg/HR Patches 72HR 1 patch apply to skin every 3 days for post op pain from recent surgery Reference #: [id number] 5units Kaushik Diallo M.D. 09/20/2020 Percocet 5-325mg Tablets 1 tab by mouth every 4-6 hours as needed for post op pain from recent surgery Reference #: [id number] 45tabs Kaushik Diallo M.D. 09/20/2020 Linzess 290mcg Capsules take 1 capsule by mouth daily every am. 30mamta Arguello MD 0 Colace 100mg Capsules take one capsule by mouth daily. 30mamta Arguello MD 03/17/2020 Advair Diskus 250-50mcg/Dose Aeros ol inhale one puff by mouth twice a day 60units Joseph duncan MD 12/14/2014 Symbicort 2 puffs twice daily Unknown Carisoprodol 350mg Tablets Take up to 1 tablet three times daily. K59.04 Unknown Synthroid 88mcg Tablets Take 1 tablet by mouth daily. Unknown Risperidone 0.25mg Tablets Take 1 tablet twice daily. Unknown Atorvastatin Calcium 10mg Tablets 1 by mouth every day Unknown Vitamin D 25mcg (1000 Ut) Tablets 1 tab by mouth twice a day Unknown Venlafaxine HCL 100mg Tablets 2 tabs by mouth twice a day Unknown Imitrex 20mg/Act Solution injection as needed Unknown Lamictal 100mg Tablets 1 tablet by mouth twice a day Unknown Prazosin HCL 2mg Capsules 2 tabs in the Am Unknown Ventolin HFA 108(90Base) mcg/Act A erosol 2 puffs qid/prn Unknown History Medications Lasix 40mg Tablets 1 tab by mouth every day 14tabs Kaushik Diallo M.D. 09/27/2020 - 10/15/2020 Immunizations CPT Code Status Date Vaccine Lot # [id number] Given 07/29/2013 Influenza Vaccine 3 Years Of Age Or Older (Flulaval) [id number] Given 08/21/2012 Influenza Vaccine 3 Years Of Age Or Older (Flulaval) [id number] Given 07/18/2010 Influenza Virus Split 3 Yrs And Above For Intramuscular Use Vital Signs Date Vital Result Comment 10/25/2020 9:13am BP Systolic 130 mmHg BP Diastolic 76 mmHg Heart Rate 82 /min O2 % BldC Oximetry 98 % Room Air Height 63 inches 5'3" Weight 148.00 lb BMI (Body Mass Index) 26.2 kg/m2 [place] Body Weight 115 lb Weight 67.133 kg BSA (Body Surface Area) 1.70 m2 10/11/2020 8:42am BP Systolic 120 mmHg BP Diastolic 70 mmHg Heart Rate 109 /min O2 % BldC Oximetry 98 % Room Air Height 63 inches 5'3" Weight 144.00 lb BMI (Body Mass Index) 25.5 kg/m2 [place] Body Weight 115 lb Weight 65.318 kg BSA (Body Surface Area) 1.68 m2 Results Test Acquired Date Facility Test Result H/L Range Note Arterial Blood Gas 09/13/2020 [facility] nter Main Lab [address] [place] [address] [phone] ABG pH (Arterial) 7.375 units Normal 7.350-7.450 ABG Partial Pressure Co2 32.0 mmHg Low 35.0-45.0 ABG Partial Pressure O2 88.2 mmHg Normal 75.0-100.0 ABG Total Co2 19.3 mEq/L Low 22.0-29.0 ABG Hco3 18.3 mEq/L Low 22.0-26.0 ABG Base Excess -5.9 Low -2.0-2.0 ABG Standard Hco3 19.6 mEq/L Low 22.0-26.0 ABG O2 Saturation 97.2 % Normal 95.0-99.0 Ua Routine 09/13/2020 [facility] nter Main Lab [address] [place], [place] [address] [phone] Appearance, Urine CLEAR Normal Clear Color, Urine YELLOW Normal Yellow PH,Urine 6.0 units Normal 5.0-9.0 Specific [place] Urine Auto 1.019 Normal 1.002-1.035 Protein, Urine Auto NEGATIVE mg/dL Normal Negative Glucose, Urine (Ua) Auto NEGATIVE mg/dL Normal Negative Ketone, Urine Auto NEGATIVE mg/dL Normal Negative Urobilinogen, Urine Auto 0.2 mg/dL Normal 0.0-2.0 Bilirubin, Urine Auto NEGATIVE Normal Negative Nitrite, Urine Auto NEGATIVE Normal Negative Leukocyte Esterase, Urine Auto NEGATIVE Normal Negative Blood, Urine Blood NEGATIVE Normal Negative WBC, Urine Auto 1 /HPF Normal 0-3 RBC, Urine Auto 5 /HPF High 0-3 Bacteria, Urine Auto NEGATIVE Normal Negative Squamous Epithelial Cell Ur AU 1 /HPF Normal 0-6 Mucus, Urine SMALL Normal Negative Hyaline Cast, Urine Auto 0 /LPF Normal 0-1 Laboratory test finding 09/13/2020 [facility] Main Lab [address] [place] [address] [phone] Carboxyhemoglobin 1.8 % High 0.0-1.5 1 Complete Blood Count 09/13/2020 [facility] enter Main Lab [address] [place] [address] [phone] White Blood Count 6.2 10 Normal 4.0-10.0 Red Blood Count 3.93 10 Low 4.00-5.40 Hemoglobin 12.5 g/dL Normal 12.0-15.5 Hematocrit 38.9 % Normal 36.0-47.0 Mean Corpuscular Volume 99.0 fl High 80.0-96.0 Mean Corpuscular Hemoglobin 31.8 pg Normal 27.0-33.0 Mean Corpuscular HGB Conc 32.1 g/dL Normal 32.0-36.5 Red Cell Distribution Width 13.3 % Normal 11.5-14.5 Platelet Count, Automated 258 10 Normal 150-450 Nucleated Red Blood Cell % 0.0 % Normal 0-0 Laboratory test finding 09/13/2020 [facility] Main Lab [address] [place] [address] [phone] Partial Thromboplastin Time 27.5 seconds Normal 24 .2-38.5 2 Basic Metabolic Profile 09/13/2020 [facility] Main Lab [address] [place] [address] [phone] Glucose, Fasting 86 mg/dL Normal 70-100 Blood Urea Nitrogen 23 mg/dL High 7-18 Creatinine For GFR 0.78 mg/dL Normal 0.55-1.30 Glomerular Filtration Rate > 60.0 Normal >51 3 Sodium Level 141 mEq/L Normal 136-145 Potassium Serum 4.7 mEq/L Normal 3.5-5.1 Chloride Level 112 mEq/L High 98-107 Carbon Dioxide Level 25 mEq/L Normal 21-32 Anion Gap 4 mEq/L Low 8-16 Calcium Level 8.7 mg/dL Normal 8.5-10.1 Prothrombin Time/Inr 09/13/2020 [facility] enter Main Lab [address] [place] [address] [phone] Prothrombin Time 13.0 seconds Normal 12.5-14.3 Inr 0.96 Normal 4 Coag Panel For Procedures 07/23/2020 [facility] Main Lab [address] [place] [address] [phone] Platelet Count, Automated 258 10 Normal 150-45 0 Partial Thromboplastin Time <pending> Prothrombin Time/Inr 07/23/2020 [facility] enter Main Lab [address] [place] [address] [phone] Prothrombin Time 12.2 seconds Normal 12.5-14.3 Inr 0.89 Normal 5 Partial Thromboplastin Time 29.0 seconds Normal 24.2-38.5 1 CARBOXYHEMOGLOBIN EXPECTED V [place] NON-SMOKERS LESS THAN 1.5% SMOKERS 1.5-5.0% HEAVY SMOKERS 5.0-9.0% 2 *Is patient on Anticoagulant s? N Comments: PREOP TESTING By: JOHROB Time: 1301 3 Units are mL/min/1.73 m2 Chronic Kidney Disease Staging per NKF: Stage I & II GFR >=60 Normal to Mildly Decreased Stage III GFR 30-59 Moderately Decreased Stage IV GFR 15-29 Severely Decreased Stage V GFR <15 Very Little GFR Left ESRD GFR <15 on TUBULAR SPLITTING MACHINE TENDER 4 THERAPUTIC HUMAN INR VALUES INDICATIONS NORMAL RANGES PROPHYLAXIS/TREATMENT OF: VENOUS THROMBOSIS 2.0-3.0 PULMONARY EMBOLISM 2.0-3.0 PREVENTION OF SYSTEMIC EMBOLISM FROM: TISSUE HEART VALVES 2.0-3.0 ACUTE MYOCARDIAL INFARCTION 2.0-3.0 VALVULAR HEART DISEASE 2.0-3.0 ATRIAL FIBRILLATION 2.0-3.0 MECHANICAL VALVES(HIGH RISK) 2.5-3.5 RECURRENT MYOCARDIAL INFARCTION 2.5-3.5 5 THERAPUTIC HUMAN INR VALUES INDICATIONS NORMAL RANGES PROPHYLAXIS/TREATMENT OF: VENOUS THROMBOSIS 2.0-3.0 PULMONARY EMBOLISM 2.0-3.0 PREVENTION OF SYSTEMIC EMBOLISM FROM: TISSUE HEART VALVES 2.0-3.0 ACUTE MYOCARDIAL INFARCTION 2.0-3.0 VALVULAR HEART DISEASE 2.0-3.0 ATRIAL FIBRILLATION 2.0-3.0 MECHANICAL VALVES(HIGH RISK) 2.5-3.5 RECURRENT MYOCARDIAL INFARCTION 2.5-3.5 Procedures Date Code Description Status 09/15/2020 65338 Lymphadenectomy Thoracic Regiona l Completed 09/15/2020 37034 Lobectomy Completed 07/23/2020 24996 Diffusing Capacity Completed 07/23/2020 37776 Plethysmography Determination Zohreh ng Volumes & Per Airway Resist Completed 07/23/2020 86793 Maximum Breathing Capacity, Maxi mal Voluntary Ventilation Completed 07/23/2020 05295 Bronchospasm Evaluation Complete d 07/23/2020 28593 Spirometry Completed Medical Devices Description No Information Available Encounters Type Date Location Provider Dx Diagnosis Office Visit 10/11/2020 8:45a [facility] Eamon Diallo M.D. C34.31 Malignant neoplasm of lower lobe, right bronchus or lung J45.40 Moderate persistent asthma, uncomplicated Z87.891 Personal history of nicotine dependence Office Visit 09/27/2020 9:15a [facility] Eamon Diallo M.D. C34.31 Malignant neoplasm of lower lobe, right bronchus or lung J45.40 Moderate persistent asthma, uncomplicated Z87.891 Personal history of nicotine dependence Office Visit 08/26/2020 9:30a [facility] Viviane Stroud, KRZYSZTOF-C K59.04 Chronic idiopathic constipat ion R10.84 Generalized abdominal pain R13.10 Dysphagia, unspecified Office Visit 08/19/2020 10:45a [facility] Eamon Diallo M.D. R91.1 Solitary pulmonary nodule J45.40 Moderate persistent asthma, uncomplicated Z87.891 Personal history of nicotine dependence R13.10 Dysphagia, unspecified K59.04 Chronic idiopathic constipat ion R63.4 Abnormal weight loss R68.81 Early satiety F31.9 Bipolar disorder, unspecifie d R91.8 Other nonspecific abnormal f inding of lung field Office Visit 08/06/2020 10:00a [facility] Joanna Choe MD R91.1 Solitary pulmonary nodule J45.40 Moderate persistent asthma, uncomplicated Z87.891 Personal history of nicotine dependence Office Visit 07/23/2020 10:00a [facility] Joanna Choe MD R91.1 Solitary pulmonary nodule J45.40 Moderate persistent asthma, uncomplicated Z87.891 Personal history of nicotine dependence Office Visit 05/26/2020 9:00a [facility] Vivianerod Stroud RPA-C R13.10 Dysphagia, unspecified K59.04 Chronic idiopathic constipat ion R63.4 Abnormal weight loss R10.84 Generalized abdominal pain R93.3 Abnormal findings on dx imag ing of prt digestive tract Assessments Date Code Description Provider 10/25/2020 C34.31 Malignant neoplasm of lower lobe , right bronchus or lung Kaushik Diallo M.D. 10/25/2020 J45.40 Moderate persistent asthma, unco mplicated Kaushik Diallo M.D. 10/25/2020 Z87.891 Personal history of nicotine dep elana Diallo M.D. 10/25/2020 F31.9 Bipolar disorder, unspecified Ro dottie Diallo M.D. 10/11/2020 C34.31 Malignant neoplasm of lower lobe , right bronchus or lung Kaushik Diallo M.D. 10/11/2020 J45.40 Moderate persistent asthma, unco mplicated Kaushik Diallo M.D. 10/11/2020 Z87.891 Personal history of nicotine dep elana Diallo M.D. 09/27/2020 C34.31 Malignant neoplasm of lower lobe , right bronchus or lung Kaushik Diallo M.D. 09/27/2020 J45.40 Moderate persistent asthma, unco mplicated Kaushik Diallo M.D. 09/27/2020 Z87.891 Personal history of nicotine dep elana Diallo M.D. 09/15/2020 C34.31 Malignant neoplasm of lower lobe , right bronchus or lung Kaushik Diallo M.D. 08/26/2020 K59.04 Chronic idiopathic constipation Mallory A Carolineluis manuelarsh, [facility] 08/26/2020 R10.84 Generalized abdominal pain Meg sa A Luanne, [facility] 08/26/2020 R13.10 Dysphagia, unspecified Mallory A Luanne, [facility] 08/19/2020 R91.1 Solitary pulmonary nodule Kaushik Diallo M.D. 08/19/2020 J45.40 Moderate persistent asthma, unco mplicated Kaushik Diallo M.D. 08/19/2020 Z87.891 Personal history of nicotine dep elana Diallo M.D. 08/19/2020 R13.10 Dysphagia, unspecified Kaushik leon M.D. 08/19/2020 K59.04 Chronic idiopathic constipation Kaushik Diallo M.D. 08/19/2020 R63.4 Abnormal weight loss Kaushik lantigua M.D. 08/19/2020 R68.81 Early satiety Kaushik Diallo M.D. 08/19/2020 F31.9 Bipolar disorder, unspecified Yenny Diallo M.D. 08/19/2020 R91.8 Other nonspecific abnormal findi ng of lung field Kaushik Diallo M.D. 08/06/2020 R91.1 Solitary pulmonary nodule Shannon Choe MD 08/06/2020 J45.40 Moderate persistent asthma, unco mplicated Joseph Choe MD 08/06/2020 Z87.891 Personal history of nicotine dep endence Joseph Choe MD 07/23/2020 J45.40 Moderate persistent asthma, unco mplicated Pulmonary Lab 07/23/2020 R91.1 Solitary pulmonary nodule Shannon Choe MD 07/23/2020 J45.40 Moderate persistent asthma, unco mplicated Joseph Choe MD 07/23/2020 Z87.891 Personal history of nicotine dep endence Joseph Choe MD 05/26/2020 R13.10 Dysphagia, unspecified Mallory A Carolinelebois, [facility] 05/26/2020 K59.04 Chronic idiopathic constipation Mallory Stroud, [facility] 05/26/2020 R63.4 Abnormal weight loss Mallory david, [facility] 05/26/2020 R10.84 Generalized abdominal pain Meg Stroud, [facility] 05/26/2020 R93.3 Abnormal findings on diagnostic imaging of other parts of digestive tract Mallory Stroud, [facility] Plan of Treatment Future Appointment(s):* 11/25/2020 8:45 am - Kaushik Diallo M.D. at [facility] 10/25/2020 - Kaushik Diallo M.D.* C34.31 Malignant neoplasm of lower lobe, right bronchus or lung* Follow up:* return one month with CXR * J45.40 Moderate persistent asthma, uncomplicated * Z87.891 Personal history of nicotine dependence * F31.9 Bipolar disorder, unspecified Functional Status Description No Information Available Mental Status Description No Information Available Referrals Refer to Reason for Referral Status Appt Date Radiology/Procedure [id number] no auth requir ed Created Radiology/Procedure [facility] auth [id number] Closed Kaushik Diallo M.D. RLL nodule...see my note...??? lobectomy Closed [facility] [address] [place] [address] [phone] Radiology/[place] [id number] Closed 0
--- OUTSIDE RECORDS SUMMARY | 2020-11-12 18:59 | CCD | Continuity of Care Document ---
Author Author Sara COBB M.D. Organization Unknown Address [address] [place] [address] Phone [phone] Care Team Providers Care Desulphurizer Operator Name Role Phone Traci Wheeler M.D. AUTM [phone] Pa Mcdonough M.D. AUTM [phone] Kaushik Cobb M.D. AUTM [phone] Problems Active Problems Provider Date Emphysematous bronchitis [...] SIG Qnty Indications Ordering Provide r Date Lasix 40mg Tablets 1 tab by mouth every day 14tatata Cobb M.D. 09/27/2020 Nebulizer Kit/Tubing/Mouthpiece K it use with nebulizer [...] for post op pain from recent surgery reference #:[id number] 5jackie Cobb M.D. 09/20/2020 Percocet 5-325mg Tablets 1 tab by mouth every 4-6 hours as needed for post op pain from recent surgery Reference #: [id number] 35laverne Cobb M.D. 09/20/2020 Linzess 290mcg Capsules take 1 [...] mcg/Act A erosol 2 puffs qid/prn Unknown Immunizations CPT Code Status Date Vaccine Lot # [id number] Given 07/29/2013 Influenza Vaccine 3 Years Of Age Or Older (Flulaval) Q2036 Given 08/21/2012 Influenza Vaccine 3 Years Of Age Or Older (Flulaval) 12843 Given 07/18/2010 Influenza Virus Split 3 Yrs And Above For Intramuscular Use Vital Signs Date Vital Result Comment 10/11/2020 8:42am BP Systolic 120 mmHg BP Diastolic 70 mmHg Heart Rate 109 /min O2 % BldC Oximetry 98 % Room Air Height 63 inches 5'3" Weight 144.00 lb BMI (Body Mass Index) 25.5 kg/m2 [place] Body Weight 115 lb Weight 65.318 kg BSA (Body Surface Area) 1.68 m2 09/27/2020 9:44am BP Systolic 140 mmHg BP Diastolic 80 mmHg Heart Rate 100 /min O2 % BldC Oximetry 98 % Room Air Height 63 inches 5'3" Weight 146.00 lb BMI (Body Mass Index) 25.9 kg/m2 [place] Body Weight 115 lb Weight 66.226 kg BSA (Body Surface Area) 1.69 m2 Results Test Acquired Date Facility Test Result H/L Range Note Arterial Blood Gas 09/13/2020 [facility] Main Lab [address] [place], [place] [id number] [phone] ABG pH (Arterial) 7.375 units Normal 7.350-7.450 ABG Partial Pressure Co2 32.0 mmHg Low 35.0-45.0 ABG Partial Pressure O2 88.2 mmHg Normal 75.0-100.0 ABG Total Co2 19.3 mEq/L Low 22.0-29.0 ABG Hco3 18.3 mEq/L Low 22.0-26.0 ABG Base Excess -5.9 Low -2.0-2.0 ABG Standard Hco3 19.6 mEq/L Low 22.0-26.0 ABG O2 Saturation 97.2 % Normal 95.0-99.0 Ua Routine 09/13/2020 [facility] nter Main Lab [address] [place], [place] [id number] [phone] Appearance, Urine CLEAR Normal Clear Color, Urine YELLOW Normal Yellow PH,Urine 6.0 units Normal 5.0-9.0 Specific [place] Urine Auto 1.019 Normal 1.002-1.035 Protein, Urine [...] /LPF Normal 0-1 Laboratory test finding 09/13/2020 [facility] Main Lab [address] [place] [address] [phone] Carboxyhemoglobin 1.8 % High 0.0-1.5 1 Complete Blood Count 09/13/2020 [facility] enter Main Lab [address] [place], [place] [id number] [phone] White Blood Count 6.2 10 Normal 4.0-10.0 [...] % Normal 0-0 Laboratory test finding 09/13/2020 [facility] Main Lab [address] [place] [address] [phone] Partial Thromboplastin Time 27.5 seconds Normal 24 .2-38.5 2 Basic Metabolic Profile 09/13/2020 [facility] Main Lab [address] [place] [address] [phone] Glucose, Fasting 86 mg/dL Normal 70-100 Blood [...] 8.7 mg/dL Normal 8.5-10.1 Prothrombin Time/Inr 09/13/2020 [facility] Main Lab [address] [place] [address] [phone] Prothrombin Time 13.0 seconds Normal 12.5-14.3 Inr 0.96 Normal 4 Coag Panel For Procedures 07/23/2020 [facility] Main Lab [address] [place] [address] [phone] Platelet Count, Automated 258 10 Normal 150-45 0 Partial Thromboplastin Time <pending> Prothrombin Time/Inr 07/23/2020 [facility] Lab [address] [place] [address] [phone] Prothrombin Time 12.2 seconds Normal 12.5-14.3 Inr 0.89 Normal 5 Partial Thromboplastin Time 29.0 seconds Normal 24.2-38.5 Laboratory test finding 04/12/2020 [facility] Main Lab [address] [place] [address] [phone] Pathology Request For Service (SEE NOTE) 6 1 CARBOXYHEMOGLOBIN EXPECTED V ALUES SUBURBAN NON-SMOKERS LESS THAN 1.5% SMOKERS 1.5-5.0% HEAVY SMOKERS 5.0-9.0% 2 *Is patient on Anticoagulant s? N Comments: PREOP TESTING By: RAHAT Time: 1301 3 Units are mL/min/1.73 m2 Chronic Kidney Disease Staging per NKF: Stage I & II GFR >=60 Normal to Mildly Decreased Stage III GFR 30-59 Moderately Decreased Stage IV GFR 15-29 Severely Decreased Stage V GFR <15 Very Little GFR Left ESRD GFR <15 on AS400 PROGRAMMER 4 THERAPUTIC HUMAN INR VALUES INDICATIONS NORMAL [...] VALVES(HIGH RISK) 2.5-3.5 RECURRENT MYOCARDIAL INFARCTION 2.5-3.5 6 FINAL DIAGNOSIS Esophagus, below Z line, biopsies: Fragments of gastroesophageal junctional mucosa with scattered chronic inflammation and regenerative change, no intestinal metaplasia or dysplasia is identified. 04/14/2020 - 1314 CLINICAL DIAGNOSIS Dysphagia, upper abdominal pain 04/13/2020 - 1404 GROSS DIAGNOSIS Received in formalin labeled "biopsy Z line" are five fragments of thacker soft tissue ranging from 0.2 to 0.4 cm in largest dimension. All in one. -YZ 04/13/2020 - 1404 Signed Tania Holland M.D. 04/14/2020 1322 Procedures Date Code Description Status 09/15/2020 87205 Lymphadenectomy Thoracic Regiona l Completed 09/15/2020 74469 Lobectomy Completed 07/23/2020 08628 Diffusing Capacity Completed 07/23/2020 93417 Plethysmography Determination Zohreh ng Volumes & Per Airway Resist Completed 07/23/2020 46968 Maximum Breathing Capacity, Maxi mal Voluntary Ventilation Completed 07/23/2020 46493 Bronchospasm Evaluation Complete d 07/23/2020 11054 Spirometry Completed 04/12/2020 42582 Dilate Esophagus Unguided Sound Or Bougie Completed 04/12/2020 51047 Endoscopy Upper GI Biopsy Comple [employer] Devices Description No Information Available Encounters Type Date Location Provider Dx Diagnosis Office Visit 09/27/2020 9:15a [facility] Eamon Cobb M.D. C34.31 Malignant neoplasm of lower lobe, right bronchus or lung J45.40 Moderate persistent asthma, uncomplicated Z87.891 Personal history of nicotine dependence Office Visit 08/26/2020 9:30a [facility] ORQUIDEA Schwartz K59.04 Chronic idiopathic constipat ion R10.84 Generalized abdominal pain R13.10 Dysphagia, unspecified Office Visit 08/19/2020 10:45a [facility] Eamon Cobb M.D. R91.1 Solitary pulmonary nodule J45.40 Moderate persistent asthma, uncomplicated Z87.891 Personal history of nicotine dependence R13.10 Dysphagia, unspecified K59.04 Chronic idiopathic constipat ion R63.4 Abnormal weight loss R68.81 Early satiety F31.9 Bipolar disorder, unspecifie d R91.8 Other nonspecific abnormal f inding of lung field Office Visit 08/06/2020 10:00a [facility] Joanna Choe MD R91.1 Solitary pulmonary nodule J45.40 Moderate persistent asthma, uncomplicated Z87.891 Personal history of nicotine dependence Office Visit 07/23/2020 10:00a [facility] Joanna Choe MD R91.1 Solitary pulmonary nodule J45.40 Moderate persistent asthma, uncomplicated Z87.891 Personal history of nicotine dependence Office Visit 05/26/2020 9:00a [facility] ORQUIDEA Grier R13.10 Dysphagia, unspecified K59.04 Chronic idiopathic constipat ion R63.4 Abnormal weight loss R10.84 Generalized abdominal pain R93.3 Abnormal findings on dx imag ing of prt digestive tract Assessments Date Code Description Provider 09/27/2020 C34.31 Malignant neoplasm of lower lobe , right bronchus or lung Kaushik Cobb M.D. 09/27/2020 J45.40 Moderate persistent asthma, unco mplicated Kaushik Cobb M.D. 09/27/2020 Z87.891 Personal history of nicotine dep endence Kaushik Cobb M.D. 09/15/2020 C34.31 Malignant neoplasm of lower lobe , right bronchus or lung Kaushik Cobb M.D. 08/26/2020 K59.04 Chronic idiopathic constipation Mallory A Bharatbopatricio, RPA-C 08/26/2020 R10.84 Generalized abdominal pain Meg sa Salvador Nicholsonbois, [facility] 08/26/2020 R13.10 Dysphagia, unspecified Mallory A Charlebois, [facility] 08/19/2020 R91.1 Solitary pulmonary nodule Kaushik Cobb M.D. 08/19/2020 J45.40 Moderate persistent asthma, unco mplicated Kaushik Cobb M.D. 08/19/2020 Z87.891 Personal history of nicotine dep endence Kaushik Cobb M.D. 08/19/2020 R13.10 Dysphagia, unspecified Kaushik leon M.D. 08/19/2020 K59.04 Chronic idiopathic constipation Kaushik Cobb M.D. 08/19/2020 R63.4 Abnormal weight loss Kaushik lantigua M.D. 08/19/2020 R68.81 Early satiety Kaushik Cobb M.D. 08/19/2020 F31.9 Bipolar disorder, unspecified Ro dottie Cobb M.D. 08/19/2020 R91.8 Other nonspecific abnormal findi ng of lung field Kaushik Cobb M.D. 08/06/2020 R91.1 Solitary pulmonary nodule Shannon [...] MD 05/26/2020 R13.10 Dysphagia, unspecified Mallory A Charlebois, [facility] 05/26/2020 K59.04 Chronic idiopathic constipation Mallory A Charluis manuelbois, [facility] 05/26/2020 R63.4 Abnormal weight loss Mallory Winston ishbritta, [facility] 05/26/2020 R10.84 Generalized abdominal pain Meg Stroud, [facility] 05/26/2020 R93.3 Abnormal findings on diagnostic imaging of other parts of digestive tract Mallory Stroud, [facility] 04/12/2020 K20.8 Other esophagitis Chente Arguello MD 04/12/2020 R13.10 Dysphagia, unspecified Chente dunbar MD Plan of Treatment No Information Available Functional Status Description No Information Available Mental Status Description No Information Available Referrals Refer to Reason for Referral Status Appt Date Radiology/Procedure [id number] no auth requir ed Created Radiology/Procedure [facility] auth [id number] Closed Kaushik Cobb M.D. RLL nodule...see my note...??? lobectomy Closed [facility] Thoracic Surg [address] [place] [address] [phone] Radiology/Procedure no auth req [id number] Closed 0
--- OUTSIDE RECORDS SUMMARY | 2020-11-12 19:00 | CCD | Continuity of Care Document ---
Author Author Sara DIALLO M.D. Organization Unknown Address [address] [place] [address] Phone [phone] Care Team Providers Care Marking Clerk Name Role Phone Traci Wheeler M.D. AUTM [phone] Pa Mcdonough M.D. AUTM [phone] Kaushik Diallo M.D. AUTM [phone] Problems Active Problems Provider Date Emphysematous bronchitis [...] smoker 1ppd x38 years Smoking Status Reviewed: 08/19/20 Patient is a former smoker 1p pd x38 years Allergies, Adverse Reactions, Alerts Active Allergies Reaction Severity Comments Date Penicillin 05/02/2016 Aspirin 05/02/2016 Ibuprofen Nausea and Vomiting, Urticaria 05/14/2012 Ibuprofen Urticaria 07/18/2011 Doxycycline 08/26/2020 Medications Active Medications SIG Qnty Indications Ordering Provide r Date Lasix 40mg Tablets 1 tab by mouth every day 14tatata Dilalo M.D. 09/27/2020 Nebulizer Kit/Tubing/Mouthpiece K it use [...] post op pain from recent surgery reference #:[id number] 5jackie Diallo M.D. 09/20/2020 Percocet 5-325mg Tablets 1 tab by mouth every 4-6 hours as needed for post op pain from recent surgery reference #:[id number] 60laverne Diallo M.D. 09/20/2020 Linzess 290mcg Capsules take 1 capsule by mouth daily every am. 30mamta Arguello MD 0 Colace 100mg Capsules take one capsule by mouth daily. 30mamta Arguello MD 03/17/2020 Advair Diskus 250-50mcg/Dose Aeros ol inhale one puff by mouth twice a day 60unrj duncan MD 12/14/2014 Symbicort 2 puffs twice [...] 3 Years Of Age Or Older (Flulaval) 36767 Given 07/18/2010 Influenza Virus Split 3 Yrs And Above For Intramuscular Use Vital Signs Date Vital Result Comment 09/27/2020 9:44am BP Systolic 140 mmHg BP Diastolic 80 mmHg Heart Rate 100 /min O2 % BldC Oximetry 98 % Room Air Height 63 inches 5'3" Weight 146.00 lb BMI (Body Mass Index) 25.9 kg/m2 [place] Body Weight 115 lb Weight 66.226 kg BSA (Body Surface Area) 1.69 m2 08/26/2020 9:44am BP Systolic 110 mmHg BP Diastolic 78 mmHg Height 63 inches 5'3" Weight 148.00 lb BMI (Body Mass Index) 26.2 kg/m2 [place] Body Weight 115 lb Weight 67.133 kg BSA (Body Surface Area) 1.70 m2 Results Test Acquired Date Facility Test Result H/L Range Note Arterial Blood Gas 09/13/2020 [facility] nter Main Lab [address] [place], [place] [address] [phone] ABG pH (Arterial) 7.375 units Normal 7.350-7.450 ABG Partial Pressure Co2 32.0 mmHg Low 35.0-45.0 ABG Partial Pressure O2 88.2 mmHg Normal 75.0-100.0 ABG Total Co2 19.3 mEq/L Low 22.0-29.0 ABG Hco3 18.3 mEq/L Low 22.0-26.0 ABG Base Excess -5.9 Low -2.0-2.0 ABG Standard Hco3 19.6 mEq/L Low 22.0-26.0 ABG O2 Saturation 97.2 % Normal 95.0-99.0 Ua Routine 09/13/2020 [facility] nter Main Lab [address] [place], [place] [address] [phone] Appearance, Urine CLEAR Normal Clear Color, Urine YELLOW Normal Yellow PH,Urine 6.0 units Normal 5.0-9.0 Specific [place] Urine Auto 1.019 Normal 1.002-1.035 Protein, Urine [...] /LPF Normal 0-1 Laboratory test finding 09/13/2020 [facility] Main Lab [address] [place] [address] [phone] Carboxyhemoglobin 1.8 % High 0.0-1.5 1 Complete Blood Count 09/13/2020 [facility] enter Main Lab [address] [place] [address] [phone] White Blood Count 6.2 10 Normal 4.0-10.0 [...] % Normal 0-0 Laboratory test finding 09/13/2020 [facility] Main Lab [address] [place] [address] [phone] Partial Thromboplastin Time 27.5 seconds Normal 24 .2-38.5 2 Basic Metabolic Profile 09/13/2020 [facility] Main Lab [address] [place] [address] [phone] Glucose, Fasting 86 mg/dL Normal 70-100 Blood [...] 8.7 mg/dL Normal 8.5-10.1 Prothrombin Time/Inr 09/13/2020 [facility] enter Main Lab [address] [place] [address] [phone] Prothrombin Time 13.0 seconds Normal 12.5-14.3 Inr 0.96 Normal 4 Coag Panel For Procedures 07/23/2020 [facility] Main Lab [address] [place] [address] [phone] Platelet Count, Automated 258 10 Normal 150-45 0 Partial Thromboplastin Time <pending> Prothrombin Time/Inr 07/23/2020 [facility] enter Main Lab [address] [place] [address] [phone] Prothrombin Time 12.2 seconds Normal 12.5-14.3 Inr 0.89 Normal 5 Partial Thromboplastin Time 29.0 seconds Normal 24.2-38.5 Laboratory test finding 04/12/2020 [facility] Main Lab [address] [place] [address] [phone] Pathology Request For Service (SEE NOTE) 6 [...] Little GFR Left ESRD GFR <15 on PUBLICATION MANAGER 4 THERAPUTIC HUMAN INR VALUES INDICATIONS NORMAL [...] 04/14/2020 1322 Procedures Date Code Description Status 07/23/2020 26533 Diffusing Capacity Completed 07/23/2020 79202 Plethysmography Determination Zohreh ng Volumes & Per Airway Resist Completed 07/23/2020 60365 Maximum Breathing Capacity, Maxi mal Voluntary Ventilation Completed 07/23/2020 14473 Bronchospasm Evaluation Complete d 07/23/2020 74537 Spirometry Completed 04/12/2020 92972 Dilate Esophagus Unguided Sound Or Bougie Completed 04/12/2020 23173 Endoscopy Upper GI Biopsy Comple [employer] Devices Description No Information Available Encounters Type Date Location Provider Dx Diagnosis Office Visit 08/26/2020 9:30a [facility] ORQUIDEA Hurd K59.04 Chronic idiopathic constipat ion R10.84 Generalized abdominal pain R13.10 Dysphagia, unspecified Office Visit 08/19/2020 10:45a [facility] R murray Diallo M.D. R91.1 Solitary pulmonary nodule J45.40 Moderate persistent asthma, uncomplicated Z87.891 Personal history of nicotine dependence R13.10 Dysphagia, unspecified K59.04 Chronic idiopathic constipat ion R63.4 Abnormal weight loss R68.81 Early satiety F31.9 Bipolar disorder, unspecifie d R91.8 Other nonspecific abnormal f inding of lung field Office Visit 08/06/2020 10:00a [facility] Joanna Choe MD R91.1 Solitary pulmonary nodule J45.40 Moderate persistent asthma, uncomplicated Z87.891 Personal history of nicotine dependence Office Visit 07/23/2020 10:00a [facility] Joanna Choe MD R91.1 Solitary pulmonary nodule J45.40 Moderate persistent asthma, uncomplicated Z87.891 Personal history of nicotine dependence Office Visit 05/26/2020 9:00a [facility] ORQUIDEA Hurd R13.10 Dysphagia, unspecified K59.04 Chronic idiopathic constipat ion R63.4 Abnormal weight loss R10.84 Generalized abdominal pain R93.3 Abnormal findings on dx imag ing of prt digestive tract Office Visit 04/08/2020 1:00p [facility] ORQUIDEA Hurd R13.10 Dysphagia, unspecified R10.10 Upper abdominal pain, unspec ified K59.04 Chronic idiopathic constipat ion Assessments Date Code Description Provider 09/27/2020 C34.31 Malignant neoplasm of lower lobe , right bronchus or lung Kaushik Diallo M.D. 09/27/2020 J45.40 Moderate persistent asthma, unco mplicated Kaushik Diallo M.D. 09/27/2020 Z87.891 Personal history of nicotine dep endence Kaushik Diallo M.D. 08/26/2020 K59.04 Chronic idiopathic constipation ORQUIDEA Thomas 08/26/2020 R10.84 Generalized abdominal pain Meg sa A Charlebois, RPA-C 08/26/2020 R13.10 Dysphagia, unspecified Mallory A Charlebois, RPA-C 08/19/2020 R91.1 Solitary pulmonary nodule Kaushik Diallo M.D. 08/19/2020 J45.40 Moderate persistent asthma, unco mplicated Kaushik Diallo M.D. 08/19/2020 Z87.891 Personal history of nicotine dep endence Kaushik Diallo M.D. 08/19/2020 R13.10 Dysphagia, unspecified Kaushik [...] 05/26/2020 R13.10 Dysphagia, unspecified Mallory A Charlebois, RPA-C 05/26/2020 K59.04 Chronic idiopathic constipation Mallory A Charlebois, RPA-C 05/26/2020 R63.4 Abnormal weight loss Mallory A C harlebois, RPA-C 05/26/2020 R10.84 Generalized abdominal pain Meg sa A Charlebois, RPA-C 05/26/2020 R93.3 Abnormal findings on diagnostic imaging of other parts of digestive tract Mallory A Charlebois, RPA-C 04/12/2020 K20.8 Other esophagitis Chente Arguello MD 04/12/2020 R13.10 Dysphagia, unspecified Chente dunbar MD 04/08/2020 R13.10 Dysphagia, unspecified Mallory A KRZYSZTOF Stroud 04/08/2020 R10.10 Upper abdominal pain, unspecifie d Mallory Salvador Luanne [facility] 04/08/2020 K59.04 Chronic idiopathic constipation Mallory Stroud [facility] Plan of Treatment 09/27/2020 - Kaushik Diallo M.D.* C34.31 Malignant neoplasm of lower lobe, right bronchus or lung* Follow up:* return 2 wks with CXR Lasix 40 mg qd #14 * J45.40 Moderate persistent asthma, uncomplicated * Z87.891 Personal history of nicotine dependence Functional Status Description No Information Available Mental Status Description No Information Available Referrals Refer to Dr Reason for Referral Status Appt Date Radiology/Procedure [id number] no auth requir ed Created Radiology/Procedure [facility] auth [id number] Closed Kaushik Diallo M.D. RLL nodule...see my note...??? lobectomy Closed [facility] Thoracic Surg [address] [place] [id number] [phone] Radiology/[place] [id number] Closed 0
--- OUTSIDE RECORDS SUMMARY | 2020-11-12 19:00 | CCD | Continuity of Care Document ---
Author Author Sara DIALLO M.D. Organization Unknown Address [address] [place] [address] Phone [phone] Care Team Providers Care Roads And Parking Lots Sweeper Operator Name Role Phone Traci Wheeler M.D. AUTM [phone] Pa Mcdonough M.D. AUTM [phone] Kaushik Diallo M.D. AUTM [phone] Problems Active Problems Provider Date Emphysematous bronchitis [...] 1 tab by mouth every day 14tatata Diallo M.D. 09/27/2020 Nebulizer Kit/Tubing/Mouthpiece K it use [...] post op pain from recent surgery reference #:[id number] 5jackie Diallo M.D. 09/20/2020 Percocet 5-325mg Tablets 1 tab by mouth every 4-6 hours as needed for post op pain from recent surgery reference #:[id number] 60laverne Diallo M.D. 09/20/2020 Linzess 290mcg Capsules [...] 3 Years Of Age Or Older (Flulaval) 15861 Given 07/18/2010 Influenza Virus Split 3 Yrs And Above For Intramuscular Use Vital Signs Date Vital Result Comment 09/27/2020 9:44am BP Systolic 140 mmHg BP Diastolic 80 mmHg Heart Rate 100 /min O2 % BldC Oximetry 98 % Room Air Height 63 inches 5'3" Weight 146.00 lb BMI (Body Mass Index) 25.9 kg/m2 [place] Body Weight 115 lb Weight 66.226 kg BSA (Body Surface Area) 1.69 m2 08/26/2020 9:44am BP Systolic 110 mmHg BP Diastolic 78 mmHg Height 63 inches 5'3" Weight 148.00 lb BMI (Body Mass Index) 26.2 kg/m2 [place] Body Weight 115 lb Weight 67.133 kg BSA (Body Surface Area) 1.70 m2 Results Test Acquired Date Facility Test Result H/L Range Note Arterial Blood Gas 09/13/2020 [facility] nter Main Lab 0 [place], [place] [id number] [phone] ABG pH (Arterial) 7.375 units Normal 7.350-7.450 ABG Partial Pressure Co2 32.0 mmHg Low 35.0-45.0 ABG Partial Pressure O2 88.2 mmHg Normal 75.0-100.0 ABG Total Co2 19.3 mEq/L Low 22.0-29.0 ABG Hco3 18.3 mEq/L Low 22.0-26.0 ABG Base Excess -5.9 Low -2.0-2.0 ABG Standard Hco3 19.6 mEq/L Low 22.0-26.0 ABG O2 Saturation 97.2 % Normal 95.0-99.0 Ua Routine 09/13/2020 [facility] nter Main Lab 0 [place], [place] [address] [phone] Appearance, Urine CLEAR Normal Clear Color, Urine YELLOW Normal Yellow PH,Urine 6.0 units Normal 5.0-9.0 Specific [place] Urine Auto 1.019 Normal 1.002-1.035 Protein, Urine [...] /LPF Normal 0-1 Laboratory test finding 09/13/2020 [facility] Main Lab 0 [place] [address] [phone] Carboxyhemoglobin 1.8 % High 0.0-1.5 1 Complete Blood Count 09/13/2020 [facility] enter Main Lab 0 [place] [address] [phone] White Blood Count 6.2 10 Normal 4.0-10.0 [...] % Normal 0-0 Laboratory test finding 09/13/2020 [facility] Main Lab [address] [place] [address] [phone] Partial Thromboplastin Time 27.5 seconds Normal 24 .2-38.5 2 Basic Metabolic Profile 09/13/2020 [facility] Main Lab 0 [place] [address] [phone] Glucose, Fasting 86 mg/dL Normal 70-100 Blood [...] 8.7 mg/dL Normal 8.5-10.1 Prothrombin Time/Inr 09/13/2020 [facility] enter Main Lab [address] [place] [address] [phone] Prothrombin Time 13.0 seconds Normal 12.5-14.3 Inr 0.96 Normal 4 Coag Panel For Procedures 07/23/2020 [facility] Main Lab [address] [place] [address] [phone] Platelet Count, Automated 258 10 Normal 150-45 0 Partial Thromboplastin Time <pending> Prothrombin Time/Inr 07/23/2020 [facility] enter Main Lab [address] [place] [address] [phone] Prothrombin Time 12.2 seconds Normal 12.5-14.3 Inr 0.89 Normal 5 Partial Thromboplastin Time 29.0 seconds Normal 24.2-38.5 Laboratory test finding 04/12/2020 [facility] Main Lab [address] [place] [address] [phone] Pathology Request For Service (SEE NOTE) 6 [...] Little GFR Left ESRD GFR <15 on WALL TAPER HELPER 4 THERAPUTIC HUMAN INR VALUES INDICATIONS NORMAL [...] 1322 Procedures Date Code Description Status 07/23/2020 83178 Diffusing Capacity Completed 07/23/2020 59165 Plethysmography Determination Zohreh ng Volumes & Per Airway Resist Completed 07/23/2020 60857 Maximum Breathing Capacity, Maxi mal Voluntary Ventilation Completed 07/23/2020 89468 Bronchospasm Evaluation Complete d 07/23/2020 67449 Spirometry Completed 04/12/2020 92952 Dilate Esophagus Unguided Sound Or Bougie Completed 04/12/2020 11611 Endoscopy Upper GI Biopsy Comple reema Medical Devices Description No Information Available Encounters Type Date Location Provider Dx Diagnosis Office Visit 08/26/2020 9:30a [facility] ENT[facility]GI Practice ORQUIDEA Hurd K59.04 Chronic idiopathic constipat ion R10.84 Generalized abdominal pain R13.10 Dysphagia, unspecified Office Visit 08/19/2020 10:45a [facility] Pulmonary/Thoracic R murray Diallo M.D. R91.1 Solitary pulmonary nodule J45.40 Moderate persistent asthma, uncomplicated Z87.891 Personal history of nicotine dependence R13.10 Dysphagia, unspecified K59.04 Chronic idiopathic constipat ion R63.4 Abnormal weight loss R68.81 Early satiety F31.9 Bipolar disorder, unspecifie d R91.8 Other nonspecific abnormal f inding of lung field Office Visit 08/06/2020 10:00a [facility] Pulmonary/Thoracic Joanna Choe MD R91.1 Solitary pulmonary nodule J45.40 Moderate persistent asthma, uncomplicated Z87.891 Personal history of nicotine dependence Office Visit 07/23/2020 10:00a [facility] Pulmonary/Thoracic Joanna Choe MD R91.1 Solitary pulmonary nodule J45.40 Moderate persistent asthma, uncomplicated Z87.891 Personal history of nicotine dependence Office Visit 05/26/2020 9:00a [facility] ENT/GI Practice ORQUIDEA Hurd R13.10 Dysphagia, unspecified K59.04 Chronic idiopathic constipat ion R63.4 Abnormal weight loss R10.84 Generalized abdominal pain R93.3 Abnormal findings on dx imag ing of prt digestive tract Office Visit 04/08/2020 1:00p [facility] ENT/GI Practice ORQUIDEA Hurd R13.10 Dysphagia, unspecified [...] abdominal pain, unspecifie d Mallory Salvador Luanne [facility] 04/08/2020 K59.04 Chronic idiopathic constipation Mallory Stroud [facility] Plan of Treatment 09/27/2020 - Kaushik [...] Reason for Referral Status Appt Date Radiology/Procedure [id number] no auth requir ed Created Radiology/Procedure [facility] auth [id number] Closed Kaushik Diallo M.D. RLL nodule...see my note...??? lobectomy Closed [facility] Thoracic Surg [address] [place] [id number] [phone] Radiology/[place] [id number] Closed 0
--- OUTSIDE RECORDS SUMMARY | 2020-11-12 19:00 | CCD | Continuity of Care Document ---
Author Author Sara COBB M.D. Organization Unknown Address [address] [place] [address] Phone [phone] Care Team Providers Care Mirror Painter Name Role Phone Traci Wheeler M.D. AUTM [phone] Pa Mcdonough M.D. AUTM [phone] Kaushik Cobb M.D. AUTM [phone] Problems Active Problems Provider Date Emphysematous bronchitis [...] post op pain from recent surgery reference #:[id number] 5jackie Cobb M.D. 09/20/2020 Percocet 5-325mg Tablets 1 tab by mouth every 4-6 hours as needed for post op pain from recent surgery reference #:[id number] 60laverne Cobb M.D. 09/20/2020 Linzess 290mcg Capsules take [...] 3 Years Of Age Or Older (Flulaval) 24517 Given 07/18/2010 Influenza Virus Split 3 Yrs And Above For Intramuscular Use Vital Signs Date Vital Result Comment 09/27/2020 9:44am BP Systolic 140 mmHg BP Diastolic 80 mmHg Heart Rate 100 /min O2 % BldC Oximetry 98 % Room Air Height 63 inches 5'3" Weight 146.00 lb BMI (Body Mass Index) 25.9 kg/m2 [place] Body Weight 115 lb Weight 66.226 kg BSA (Body Surface Area) 1.69 m2 08/26/2020 9:44am BP Systolic 110 mmHg BP Diastolic 78 mmHg Height 63 inches 5'3" Weight 148.00 lb BMI (Body Mass Index) 26.2 kg/m2 [place] Body Weight 115 lb Weight 67.133 kg BSA (Body Surface Area) 1.70 m2 Results Test Acquired Date Facility Test Result H/L Range Note Arterial Blood Gas 09/13/2020 [facility] nter Main Lab 0 [place], [place] [address] [phone] ABG pH (Arterial) 7.375 units Normal 7.350-7.450 ABG Partial Pressure Co2 32.0 mmHg Low 35.0-45.0 ABG Partial Pressure O2 88.2 mmHg Normal 75.0-100.0 ABG Total Co2 19.3 mEq/L Low 22.0-29.0 ABG Hco3 18.3 mEq/L Low 22.0-26.0 ABG Base Excess -5.9 Low -2.0-2.0 ABG Standard Hco3 19.6 mEq/L Low 22.0-26.0 ABG O2 Saturation 97.2 % Normal 95.0-99.0 Ua Routine 09/13/2020 [facility] nter Main Lab 0 [place], [place] [id number] [phone] Appearance, Urine CLEAR Normal Clear Color, Urine YELLOW Normal Yellow PH,Urine 6.0 units Normal 5.0-9.0 Specific [place] Urine Auto 1.019 Normal 1.002-1.035 Protein, Urine [...] /LPF Normal 0-1 Laboratory test finding 09/13/2020 [facility] Main Lab [address] [place] [address] [phone] Carboxyhemoglobin 1.8 % High 0.0-1.5 1 Complete Blood Count 09/13/2020 [facility] enter Main Lab 0 [place] [address] [phone] White Blood Count 6.2 10 Normal 4.0-10.0 [...] % Normal 0-0 Laboratory test finding 09/13/2020 [facility] Main Lab [address] [place] [address] [phone] Partial Thromboplastin Time 27.5 seconds Normal 24 .2-38.5 2 Basic Metabolic Profile 09/13/2020 [facility] Main Lab [address] [place] [address] [phone] Glucose, Fasting 86 mg/dL Normal 70-100 Blood [...] 8.7 mg/dL Normal 8.5-10.1 Prothrombin Time/Inr 09/13/2020 [facility] enter Main Lab [address] [place] [address] [phone] Prothrombin Time 13.0 seconds Normal 12.5-14.3 Inr 0.96 Normal 4 Coag Panel For Procedures 07/23/2020 [facility] Main Lab [address] [place] [address] [phone] Platelet Count, Automated 258 10 Normal 150-45 0 Partial Thromboplastin Time <pending> Prothrombin Time/Inr 07/23/2020 [facility] enter Main Lab [address] [place] [address] [phone] Prothrombin Time 12.2 seconds Normal 12.5-14.3 Inr 0.89 Normal 5 Partial Thromboplastin Time 29.0 seconds Normal 24.2-38.5 Laboratory test finding 04/12/2020 [facility] Main Lab [address] [place] [address] [phone] Pathology Request For Service (SEE NOTE) 6 [...] Little GFR Left ESRD GFR <15 on VALVE SETTER 4 THERAPUTIC HUMAN INR VALUES INDICATIONS NORMAL [...] 1322 Procedures Date Code Description Status 07/23/2020 59475 Diffusing Capacity Completed 07/23/2020 81124 Plethysmography Determination Zohreh ng Volumes & Per Airway Resist Completed 07/23/2020 29231 Maximum Breathing Capacity, Maxi mal Voluntary Ventilation Completed 07/23/2020 31310 Bronchospasm Evaluation Complete d 07/23/2020 99193 Spirometry Completed 04/12/2020 09143 Dilate Esophagus Unguided Sound Or Bougie Completed 04/12/2020 85447 Endoscopy Upper GI Biopsy Comple reema Medical Devices Description No Information Available Encounters Type Date Location Provider Dx Diagnosis Office Visit 08/26/2020 9:30a [facility] ENT/GI Practice Viviane sharmila Salvador ORQUIDEA Stroud K59.04 Chronic idiopathic constipat ion R10.84 Generalized abdominal pain R13.10 Dysphagia, unspecified Office Visit 08/19/2020 10:45a [facility] Pulmonary/Thoracic R murray Cobb M.D. R91.1 Solitary pulmonary nodule J45.40 Moderate persistent asthma, uncomplicated Z87.891 Personal history of nicotine dependence R13.10 Dysphagia, unspecified K59.04 Chronic idiopathic constipat ion R63.4 Abnormal weight loss R68.81 Early satiety F31.9 Bipolar disorder, unspecifie d R91.8 Other nonspecific abnormal f inding of lung field Office Visit 08/06/2020 10:00a [facility] Pulmonary/Thoracic Joanna Choe MD R91.1 Solitary pulmonary nodule J45.40 Moderate persistent asthma, uncomplicated Z87.891 Personal history of nicotine dependence Office Visit 07/23/2020 10:00a [facility] Pulmonary/Thoracic Joanna Choe MD R91.1 Solitary pulmonary nodule J45.40 Moderate persistent asthma, uncomplicated Z87.891 Personal history of nicotine dependence Office Visit 05/26/2020 9:00a [facility] ENT/GI Practice Viviane doll Salvador ORQUIDEA Stroud R13.10 Dysphagia, unspecified K59.04 Chronic idiopathic constipat ion R63.4 Abnormal weight loss R10.84 Generalized abdominal pain R93.3 Abnormal findings on dx imag ing of prt digestive tract Office Visit 04/08/2020 1:00p [facility] ENT/GI Practice ORQUIDEA Hurd R13.10 Dysphagia, unspecified R10.10 Upper abdominal pain, unspec ified K59.04 Chronic idiopathic constipat ion Assessments Date Code Description Provider 08/26/2020 K59.04 Chronic idiopathic constipation Mallory ORQUIDEA Schwartz 08/26/2020 R10.84 Generalized abdominal pain Meg sa ORQUIDEA Schwartz 08/26/2020 R13.10 Dysphagia, unspecified ORQUIDEA Thomas 08/19/2020 R91.1 Solitary pulmonary nodule Kaushik Cobb [...] 07/23/2020 Z87.891 Personal history of nicotine dep elana Choe MD 05/26/2020 R13.10 Dysphagia, unspecified Mallory A Charlebois, RPA-C 05/26/2020 K59.04 Chronic idiopathic constipation Mallory A Charlebois, RPA-C 05/26/2020 R63.4 Abnormal weight loss Mallory A C harlebois, RPA-C 05/26/2020 R10.84 Generalized abdominal pain Meg sa A Charlebois, RPA-C 05/26/2020 R93.3 Abnormal findings on diagnostic imaging of other parts of digestive tract Mallory A Bharatbopatricio, RPA-C 04/12/2020 K20.8 Other esophagitis Chente Arguello MD 04/12/2020 R13.10 Dysphagia, unspecified Chente dunbar MD 04/08/2020 R13.10 Dysphagia, unspecified Mallory A Charlebois, RPA-C 04/08/2020 R10.10 Upper abdominal pain, unspecifie d ORQUIDEA Thomas 04/08/2020 K59.04 Chronic idiopathic constipation ORQUIDEA Thomas Plan of Treatment No Information Available Functional Status Description No Information Available Mental Status Description No Information Available Referrals Refer to Dr Reason for Referral Status Appt Date Radiology/Procedure [id number] no auth requir ed Created Radiology/Procedure [facility] auth [id number] Closed Kaushik Cobb M.D. RLL nodule...see my note...??? lobectomy Closed [facility] Thoracic Surg [address] [place] [address] [phone] Radiology/[place] [id number] Closed 0
--- OUTSIDE RECORDS SUMMARY | 2020-11-12 19:00 | CCD | Continuity of Care Document ---
Author Author Sara DIALLO M.D. Organization Unknown Address [address] [place] [address] Phone [phone] Care Team Providers Care Tanbark Laborer Name Role Phone Traci Wheeler M.D. AUTM [phone] Pa Mcdonough M.D. AUTM [phone] Kaushik Diallo M.D. AUTM [phone] Problems Active Problems Provider Date Emphysematous bronchitis [...] post op pain from recent surgery reference #:[id number] 5jackie Diallo M.D. 09/20/2020 Percocet 5-325mg Tablets 1 tab by mouth every 4-6 hours as needed for post op pain from recent surgery reference #:[id number] 60laverne Diallo M.D. 09/20/2020 Linzess 290mcg Capsules [...] 3 Years Of Age Or Older (Flulaval) 03584 Given 07/18/2010 Influenza Virus Split 3 Yrs And Above For Intramuscular Use Vital Signs Date Vital Result Comment 09/27/2020 9:44am BP Systolic 140 mmHg BP Diastolic 80 mmHg Heart Rate 100 /min O2 % BldC Oximetry 98 % Room Air Height 63 inches 5'3" Weight 146.00 lb BMI (Body Mass Index) 25.9 kg/m2 [place] Body Weight 115 lb Weight 66.226 kg BSA (Body Surface Area) 1.69 m2 08/26/2020 9:44am BP Systolic 110 mmHg BP Diastolic 78 mmHg Height 63 inches 5'3" Weight 148.00 lb BMI (Body Mass Index) 26.2 kg/m2 [place] Body Weight 115 lb Weight 67.133 kg BSA (Body Surface Area) 1.70 m2 Results Test Acquired Date Facility Test Result H/L Range Note Arterial Blood Gas 09/13/2020 [facility] nter Main Lab 0 [place], [place] [address] [phone] ABG pH (Arterial) 7.375 units Normal 7.350-7.450 ABG Partial Pressure Co2 32.0 mmHg Low 35.0-45.0 ABG Partial Pressure O2 88.2 mmHg Normal 75.0-100.0 ABG Total Co2 19.3 mEq/L Low 22.0-29.0 ABG Hco3 18.3 mEq/L Low 22.0-26.0 ABG Base Excess -5.9 Low -2.0-2.0 ABG Standard Hco3 19.6 mEq/L Low 22.0-26.0 ABG O2 Saturation 97.2 % Normal 95.0-99.0 Ua Routine 09/13/2020 [facility] nter Main Lab 0 [place], [place] [address] [phone] Appearance, Urine CLEAR Normal Clear Color, Urine YELLOW Normal Yellow PH,Urine 6.0 units Normal 5.0-9.0 Specific [place] Urine Auto 1.019 Normal 1.002-1.035 Protein, Urine [...] /LPF Normal 0-1 Laboratory test finding 09/13/2020 [facility] Main Lab [address] [place] [address] [phone] Carboxyhemoglobin 1.8 % High 0.0-1.5 1 Complete Blood Count 09/13/2020 [facility] enter Main Lab 0 [place] [address] [phone] White Blood Count 6.2 10 Normal 4.0-10.0 [...] % Normal 0-0 Laboratory test finding 09/13/2020 [facility] Main Lab [address] [place] [address] [phone] Partial Thromboplastin Time 27.5 seconds Normal 24 .2-38.5 2 Basic Metabolic Profile 09/13/2020 [facility] Main Lab [address] [place] [address] [phone] Glucose, Fasting 86 mg/dL Normal 70-100 Blood [...] 8.7 mg/dL Normal 8.5-10.1 Prothrombin Time/Inr 09/13/2020 [facility] enter Main Lab [address] [place] [address] [phone] Prothrombin Time 13.0 seconds Normal 12.5-14.3 Inr 0.96 Normal 4 Coag Panel For Procedures 07/23/2020 [facility] Main Lab [address] [place] [address] [phone] Platelet Count, Automated 258 10 Normal 150-45 0 Partial Thromboplastin Time <pending> Prothrombin Time/Inr 07/23/2020 [facility] enter Main Lab [address] [place] [address] [phone] Prothrombin Time 12.2 seconds Normal 12.5-14.3 Inr 0.89 Normal 5 Partial Thromboplastin Time 29.0 seconds Normal 24.2-38.5 Laboratory test finding 04/12/2020 [facility] Main Lab [address] [place] [address] [phone] Pathology Request For Service (SEE NOTE) 6 [...] Little GFR Left ESRD GFR <15 on FLOUR DISTRIBUTOR 4 THERAPUTIC HUMAN INR VALUES INDICATIONS NORMAL [...] 1322 Procedures Date Code Description Status 07/23/2020 00494 Diffusing Capacity Completed 07/23/2020 27306 Plethysmography Determination Zohreh ng Volumes & Per Airway Resist Completed 07/23/2020 07899 Maximum Breathing Capacity, Maxi mal Voluntary Ventilation Completed 07/23/2020 69171 Bronchospasm Evaluation Complete d 07/23/2020 82603 Spirometry Completed 04/12/2020 40802 Dilate Esophagus Unguided Sound Or Bougie Completed 04/12/2020 38545 Endoscopy Upper GI Biopsy Comple reema Medical Devices Description No Information Available Encounters Type Date Location Provider Dx Diagnosis Office Visit 08/26/2020 9:30a [facility] ENT/GI Practice ORQUIDEA Hurd K59.04 Chronic idiopathic constipat ion R10.84 Generalized abdominal pain R13.10 Dysphagia, unspecified Office Visit 08/19/2020 10:45a [facility] Pulmonary/Thoracic R murray Diallo M.D. R91.1 Solitary pulmonary nodule J45.40 Moderate persistent asthma, uncomplicated Z87.891 Personal history of nicotine dependence R13.10 Dysphagia, unspecified K59.04 Chronic idiopathic constipat ion R63.4 Abnormal weight loss R68.81 Early satiety F31.9 Bipolar disorder, unspecifie d R91.8 Other nonspecific abnormal f inding of lung field Office Visit 08/06/2020 10:00a [facility] Pulmonary/Thoracic Joanna Choe MD R91.1 Solitary pulmonary nodule J45.40 Moderate persistent asthma, uncomplicated Z87.891 Personal history of nicotine dependence Office Visit 07/23/2020 10:00a [facility] Pulmonary/Thoracic Joanna Choe MD R91.1 Solitary pulmonary nodule J45.40 Moderate persistent asthma, uncomplicated Z87.891 Personal history of nicotine dependence Office Visit 05/26/2020 9:00a [facility] ENT/GI Practice ORQUIDEA Hurd R13.10 Dysphagia, unspecified K59.04 Chronic idiopathic constipat ion R63.4 Abnormal weight loss R10.84 Generalized abdominal pain R93.3 Abnormal findings on dx imag ing of prt digestive tract Office Visit 04/08/2020 1:00p [facility] ENT/GI Practice ORQUIDEA Hurd R13.10 Dysphagia, [...] abdominal pain, unspecifie d Mallory Salvador Luanne [facility] 04/08/2020 K59.04 Chronic idiopathic constipation Mallory Stroud [facility] Plan of Treatment 09/27/2020 - Kaushik [...] Reason for Referral Status Appt Date Radiology/Procedure [id number] no auth requir ed Created Radiology/Procedure [facility] auth [id number] Closed Kaushik Diallo M.D. RLL nodule...see my note...??? lobectomy Closed [facility] Thoracic Surg [address] [place] [id number] [phone] Radiology/[place] [id number] Closed 0
--- OUTSIDE RECORDS SUMMARY | 2020-11-12 19:01 | CCD ---
Author Organization Unknown Address [address] [place] [address] Phone [phone] Care Team Providers Care Diamond Driller Helper Name Role Phone DRE BRUCE 129 [phone] DEVI BOWIE 114 [phone] [facility] 107 [phone] Allergies Code Code System Name Reaction Severity Status Onset 20240522 RxNorm Motrin Active 05/18/2016 Penicillin Active 3640 RxNorm Doxycycline Active 09/16/20 Notes: ASPRIN - Reaction: addictive Medications Name Status Start Date Stop Date amitriptyline 10 mg tablet Active Not a vailable atorvastatin 10 mg tablet Active Not av ailable carisoprodol 350 mg tablet Active Not a vailable celecoxib 200 mg capsule Completed Chantix Continuing Month Box 1 mg tablet Active Not available Chantix Starting Month Box 0.5 mg (11)-1 mg (42) tablets in dose pack Active Not available clonazepam 1 mg tablet Completed 0 estradiol 0.01% (0.1 mg/gram) vaginal cream Active Not available ketorolac 10 mg tablet Completed 0 lamotrigine 100 mg tablet Active Not av ailable levothyroxine 88 mcg tablet Active Not available Linzess 290 mcg capsule Active Not avai lable prazosin 1 mg capsule Completed 08/19/2020 quetiapine [...] Chronic Tension-type Headache Active 02/06/2020 Hi story [place] Lesion of Lung Active 03/15/2020 History Acute Cystitis Active 04/02/2020 History Procedures Notes: section x2, Gallbladder, GERD, D&C, Colonoscopy , Endoscopy , "cancer removed from uterus" Results Lab Results Date Name Specimen Result Interpretation Description Value Range Status Address 08/18/2020 Urinalysis, Dipstick Normal Appearance, Uri ne clear clear [facility]: [address] [facility] Normal Color, Urine yellow yellow [facility]: [address] [facility] Normal pH,urine 5.0 units 5.0-9.0 units [facility]: [address] [facility] Normal Specific [place] Urine Auto 1.015 1 .002-1.035 [facility]: [address] [facility] Normal Protein, Urine Auto negative mg/dL n egative mg/dL [facility]: [address] [facility] Normal Glucose, Urine (UA) Auto negative mg /dL negative mg/dL [facility]: [address] [facility] Normal Ketone, Urine Auto negative mg/dL ne gative mg/dL [facility]: [address] [facility] Normal Urobilinogen, Urine Auto 0.2 mg/dL 0 .0-2.0 mg/dL [facility]: [address] [facility] Normal Bilirubin, Urine Auto negative negat fatuma [facility]: [address] [facility] Normal Nitrite, Urine Auto negative negativ e [facility]: [address] [facility] High Leukocyte Esterase, Urine Auto 1+ negative [facility]: [address] [facility] High Blood, Urine Blood 1+ negative F inal [facility]: [address] [facility] High WBC, Urine Auto 10 /hpf 0-3 /hpf [facility]: [address] [facility] Normal RBC, Urine Auto 2 /hpf 0-3 /hpf [facility]: [address] [facility] Normal Bacteria, Urine Auto negative negati ve [facility]: [address] [facility] Normal Squamous Epithelial Cell Ur AU 0 /hp f 0-6 /hpf [facility]: [address] [facility] Normal Mucus, Urine small negative [facility]: [address] [facility] Normal Hyaline Cast, Urine Auto 0 /lpf 0-1 /lpf Final [facility]: [address] [facility] Past Encounters 08/26/2020 Posttraumatic Stress Disorder; Bipolar II Disorder Abbi Snyder [facility]: [address] [place] [address], Ph. 08/18/2020 Bipolar II Disorder Abbi Snyder [facility]: [address] [place] [phone], Ph. 08/18/2020 Increased Frequency of Urination Pa Mcdonough MD: [address] [place] [phone], Ph. 08/06/2020 Bipolar II Disorder Abbi Snyder [facility]: [address] [place] [phone], Ph. 08/04/2020 Bipolar II Disorder Abbi Snyder [facility]: [address] [place] [phone], Ph. Social History Tobacco Smoking Status Former Smoker Vaccine List Vaccine Type influenza, seasonal, injectable 10/29/20150.5 mL 11/29/20170.5 mL Plan of Care Reminders Provider Appointments None recorded. Lab None recorded. Referral None recorded. Procedures None recorded. Surgeries None recorded. Imaging None recorded. Vitals 08/18/2020 11:20AM ESTABLISHED [id number] Height Weight BMI Blood Pressure 63 in [...]
--- OUTSIDE RECORDS SUMMARY | 2020-11-12 19:01 | CCD ---
Author Organization Unknown Address [address] [place] [address] Phone [phone] Care Team Providers Care Loan Assistant Name Role Phone DRE BRUCE 129 [phone] DEVI BOWIE 114 [phone] [facility] 107 [phone] Allergies Code Code System Name Reaction Severity Status Onset 20240522 RxNorm Motrin Active 05/18/2016 Penicillin Active 05/18/2016 364 RxNorm Doxycycline Active 09/16/2019 Notes: ASPRIN - Reaction: addictive Medications Name Status Start Date Stop Date amitriptyline 10 mg tablet Active Not a vailable atorvastatin 10 mg tablet Active Not av ailable carisoprodol 350 mg tablet Active Not a vailable celecoxib 200 mg capsule Active Not sherin ilable Chantix Continuing Month Box 1 mg tablet Active Not available Chantix Starting Month Box 0.5 mg (11)-1 mg (42) tablets in dose pack Active Not available clonazepam 1 mg tablet Active Not avail able estradiol 0.01% (0.1 mg/gram) vaginal cream Active Not available ketorolac 10 mg tablet Active Not avail able lamotrigine 100 mg tablet Active Not av ailable levothyroxine 88 mcg tablet Active Not available Linzess 290 mcg capsule Active Not avai lable prazosin 1 mg capsule Active Not availa ble quetiapine 100 mg tablet Active Not sherin ilable quetiapine 400 mg tablet Active Not sherin ilable risperidone 0.25 mg tablet Active Not a vailable sucralfate 100 mg/mL oral suspension Active Not available sulfamethoxazole 800 mg-trimethoprim 160 mg tablet Active Not available Symbicort 160 mcg-4.5 mcg/actuation HFA aerosol inhaler Active Not available topiramate 200 mg tablet Active Not sherin ilable Trulance 3 mg tablet Active Not availab le Problems Name Status Onset Date Source Depressive [...] Chronic Tension-type Headache Active 02/06/2020 Hi story [place] Lesion of Lung Active 03/15/2020 History Acute Cystitis Active 04/02/2020 History Procedures Notes: section x2, Gallbladder, GERD, D&C, Colonoscopy , Endoscopy , "cancer removed from uterus" Results Lab Results None recorded. Past Encounters 08/18/2020 Bipolar II Disorder Abbi Snyder, [employer]: [address] [place] [address], Ph. 08/18/2020 Increased Frequency of Urination Pa Mcdonough MD: [address] [place] [address], Ph. 08/06/2020 Bipolar II Disorder Abbi Snyder, [facility]: [address] [place] [address], Ph. 08/04/2020 Bipolar II Disorder Abbi Snyder, [facility]: [address] [place] [address], Ph. Social History Tobacco Smoking Status Former Smoker Vaccine List Vaccine Type influenza, seasonal, injectable 10/29/20150.5 mL 11/29/20170.5 mL Plan of Care Reminders Provider Appointments None recorded. Lab None recorded. Referral None recorded. Procedures None recorded. Surgeries None recorded. Imaging None recorded. Vitals 08/18/2020 11:20AM ESTABLISHED [id number] Height Weight BMI Blood Pressure 63 in [...]
--- OUTSIDE RECORDS SUMMARY | 2020-11-12 19:01 | CCD ---
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 Histo ry Hyperlipidemia Active 07/01/2019 History Posttraumatic Stress Disorder Active 08/18/2019 Hi story Bipolar II Disorder Active 12/08/2019 History Anesthesia of Skin Active 01/13/2020 History Chest Pain Active 01/13/2020 History Chronic Tension-type Headache Active 02/06/2020 Hi story [place] Lesion of Lung Active 03/15/2020 History Acute Cystitis Active 04/02/2020 History Procedures Notes: section x2, Gallbladder, GERD, D&C, Colonoscopy , Endoscopy , "cancer removed from uterus" Results Lab Results Date Name Specimen Result Interpretation Description Value Range Status Address 08/18/2020 Urinalysis, Dipstick Normal Appearance, Uri ne clear clear [facility]: [address] [facility] Normal Color, Urine yellow yellow [facility]: [address] [facility] Normal pH,urine 5.0 units 5.0-9.0 units [facility]: [address] [facility] Normal Specific [place] Urine Auto 1.015 1 .002-1.035 [facility]: [address] [facility] Normal Protein, Urine Auto negative mg/dL n egative mg/dL [facility]: [address] [facility] Normal Glucose, Urine (UA) Auto negative mg /dL negative mg/dL [facility]: [address] [facility] Normal Ketone, Urine Auto negative mg/dL ne gative mg/dL [facility]: [address] [facility] Normal Urobilinogen, Urine Auto 0.2 mg/dL 0 .0-2.0 mg/dL [facility]: [address] [facility] Normal Bilirubin, Urine Auto negative negat fatuma [facility]: [address] [facility] Normal Nitrite, Urine Auto negative negativ e [facility]: [address] [facility] High Leukocyte Esterase, Urine Auto 1+ negative [facility]: [address] [facility] High Blood, Urine Blood 1+ negative F inal [facility]: [address] [facility] High WBC, Urine Auto 10 /hpf 0-3 /hpf [facility]: [address] [facility] Normal RBC, Urine Auto 2 /hpf 0-3 /hpf [facility]: [address] [facility] Normal Bacteria, Urine Auto negative negati ve [facility]: [address] [facility] Normal Squamous Epithelial Cell Ur AU 0 /hp f 0-6 /hpf [facility]: [address] [facility] Normal Mucus, Urine small negative [facility]: [address] [facility] Normal Hyaline Cast, Urine Auto 0 /lpf 0-1 /lpf Final [facility]: [address] [facility] Past Encounters 09/01/2020 Posttraumatic Stress Disorder; Bipolar II Disorder Abbi Snyder [facility]: [address] [place] [address], Ph. 08/26/2020 Posttraumatic Stress Disorder; Bipolar II Disorder Abbi Snyder [facility]: [address] [place] [address], Ph. 08/18/2020 [facility] [address] [place] [address], Ph. 08/18/2020 Increased Frequency of Urination Pa Mcdonough MD: [address] [place] [phone], Ph. 08/06/2020 Bipolar II Disorder Abbi Snyder [facility]: [address] [place] [address], Ph. 08/04/2020 Bipolar II Disorder Abbi Snyder [facility]: [address] [place] [phone], Ph. Social History Tobacco Smoking Status Former Smoker Vaccine List Vaccine Type influenza, seasonal, injectable 10/29/20150.5 mL 11/29/20170.5 mL Plan of Care Reminders Provider Appointments None recorded. Lab None recorded. Referral None recorded. Procedures None recorded. Surgeries None recorded. Imaging None recorded. Vitals 08/18/2020 11:20AM ESTABLISHED [id number] Height Weight BMI Blood Pressure 63 in [...]
--- OUTSIDE RECORDS SUMMARY | 2020-11-12 19:01 | CCD ---
Author Organization Unknown Address [address] [place] [address] Phone [phone] Care Team Providers Care Neuropsychology Director Name Role Phone DRE BRUCE 129 [phone] DEVI BOWIE 114 [phone] [facility] 107 [phone] Allergies Code Code System Name Reaction Severity [...] Not av ailable carisoprodol 350 mg tablet TID prn Spasms Active Not available celecoxib 200 mg capsule Completed 020 Chantix [...] 25 mcg/hr transdermal patch Active Not available ketorolac 10 mg tablet Completed 0 lamotrigine 100 mg tablet Active Not av ailable levothyroxine 88 mcg tablet One tablet daily Active Not available Linzess 290 mcg capsule one tablet daily Active Not available nebulizer accessories misc Active Not a vailable oxycodone-acetaminophen 5 mg-325 mg tablet Active Not available prazosin 1 mg capsule Completed 08/19/2020 quetiapine 100 mg tablet Completed 020 quetiapine 400 mg tablet Completed risperidone 0.25 [...] Chronic Tension-type Headache Active 02/06/2020 Hi story [place] [facility] Active 03/15/2020 History Acute [...] White Blood Count 8.2 10 4.0-10.0 10 [facility]: [address] [place] [address] Low Red Blood Count 3.22 10 4.00-5.40 10 [facility]: [address] [place] [address] Low Hemoglobin 10.2 g/dL 12.0-15.5 g/dL [facility]: [address] [place] [address] Low Hematocrit 31.7 % 36.0-47.0 % [facility]: [address] [place] [address] High Mean Corpuscular Volume 98.4 fL 80.0 -96.0 fL [facility]: [address] [place] [address] Normal Mean Corpuscular Hemoglobin 31.7 pg 27.0-33.0 pg [facility]: [address] [place] [address] Normal Mean Corpuscular HGB Conc 32.2 g/dL 32.0-36.5 g/dL [facility]: [address] [place] [address] Normal Red Cell Distribution Width 12.8 % 1 1.5-14.5 % [facility]: [address] [place] [address] Normal Platelet Count, Automated 253 10 150 -450 10 [facility]: [address] [place] [address] High Neutrophils % 73.6 % 36.0-66.0 % [facility]: [address] [facility] Low Lymph % 8.7 % 24.0-44.0 % Final [facility]: [address] [facility] High Pine % 10.8 % 0.0-5.0 % Final [facility]: [address] [facility] High Eos % 5.6 % 0.0-3.0 % [facility]: [address] [facility] Normal Baso % 0.6 % 0.0-1.0 % [facility]: [address] [facility] Normal Immature Granulocyte % 0.7 % 0-3.0 % [facility]: [address] [facility] Normal Nucleated Red Blood Cell % 0.0 % 0- 0 % [facility]: [address] [facility] Normal Neutrophils # 6.0 10 1.5-8.5 10 [facility]: [address] [facility] Low Lymph # 0.7 10 1.5-5.0 10 [facility]: [address] [facility] High Pine # 0.9 10 0.0-0.8 10 [facility]: 0 [facility] Normal Eos # 0.5 10 0.0-0.5 10 [facility]: [address] [facility] Normal Baso # 0.1 10 0.0-0.2 10 [facility]: [address] [facility] 09/20/2020 BMP, Serum or Plasma High Glucose, Fastin g 103 mg/dL 70-100 mg/dL [facility]: 83 0 [facility] Normal Blood Urea Nitrogen 11 mg/dL 7-18 mg /dL [facility]: 0 [facility] Normal Creatinine for GFR 0.69 mg/dL 0.55-1 .30 mg/dL [facility]: [address] [facility] Normal Glomerular Filtration Rate > 60.0 >5 1 [facility]: [address] [facility] Normal Sodium Level 138 mEq/L 136-145 mEq/L [facility]: [address] [place] [address] Normal Potassium Serum 4.4 mEq/L 3.5-5.1 mE q/L [facility]: [address] [place] [address] High Chloride Level 109 mEq/L 98-107 mEq/ L [facility]: [address] [place] [address] Normal Carbon Dioxide Level 24 mEq/L 21-32 mEq/L [facility]: [address] [place] [address] Low Anion Gap 5 mEq/L 8-16 mEq/L [facility]: [address] [place] [address] Normal Calcium Level 8.6 mg/dL 8.5-10.1 mg/ dL [facility]: [address] [place] [address] 09/19/2020 CBC W/ Auto Diff Normal White Blood Count 7.1 10 4.0-10.0 10 [facility]: [address] [place] [address] Low Red Blood Count 3.02 10 4.00-5.40 10 [facility]: [address] [place] [address] Low Hemoglobin 9.5 g/dL 12.0-15.5 g/dL [facility]: [address] [place] [address] Low Hematocrit 30.2 % 36.0-47.0 % [facility]: [address] [place] [address] High Mean Corpuscular Volume 100.0 fL 80. 0-96.0 fL [facility]: [address] [place] [address] Normal Mean Corpuscular Hemoglobin 31.5 pg 27.0-33.0 pg [facility]: [address] [place] [address] Low Mean Corpuscular HGB Conc 31.5 g/dL 32.0-36.5 g/dL [facility]: [address] [place] [address] Normal Red Cell Distribution Width 13.2 % 1 1.5-14.5 % [facility]: [address] [place] [address] Normal Platelet Count, Automated 220 10 150 -450 10 [facility]: [address] [place] [address] Normal Neutrophils % 62.8 % 36.0-66.0 % [facility]: [address] [facility] Low Lymph % 17.8 % 24.0-44.0 % Final [facility]: [address] [facility] High Pine % 11.7 % 0.0-5.0 % Final [facility]: [address] [facility] High Eos % 6.5 % 0.0-3.0 % [facility]: [address] [facility] Normal Baso % 0.4 % 0.0-1.0 % [facility]: [address] [facility] Normal Immature Granulocyte % 0.8 % 0-3.0 % [facility]: [address] [place] [address] Normal Nucleated Red Blood Cell % 0.0 % 0- 0 % [facility]: 0 [facility] Normal Neutrophils # 4.5 10 1.5-8.5 10 [facility]: [address] [facility] Low Lymph # 1.3 10 1.5-5.0 10 [facility]: [address] [facility] Normal Pine # 0.8 10 0.0-0.8 10 [facility]: 0 [facility] Normal Eos # 0.5 10 0.0-0.5 10 [facility]: 0 [facility] Normal Baso # 0.0 10 0.0-0.2 10 [facility]: 0 [facility] 09/19/2020 BMP, Serum or Plasma Normal Glucose, Fastin g 87 mg/dL 70-100 mg/dL [facility]: 83 0 [facility] Normal Blood Urea Nitrogen 16 mg/dL 7-18 mg /dL [facility]: 0 [facility] Normal Creatinine for GFR 0.75 mg/dL 0.55-1 .30 mg/dL [facility]: 0 [facility] Normal Glomerular Filtration Rate > 60.0 >5 1 [facility]: [address] [place] [address] Normal Sodium Level 139 mEq/L 136-145 mEq/L [facility]: [address] [place] [address] Normal Potassium Serum 4.5 mEq/L 3.5-5.1 mE q/L [facility]: [address] [place] [address] High Chloride Level 109 mEq/L 98-107 mEq/ L [facility]: [address] [place] [address] Normal Carbon Dioxide Level 24 mEq/L 21-32 mEq/L [facility]: [address] [place] [address] Low Anion Gap 6 mEq/L 8-16 mEq/L [facility]: [address] [place] [address] Low Calcium Level 8.3 mg/dL 8.5-10.1 mg/ dL [facility]: [address] [place] [address] 09/18/2020 CBC W/ Auto Diff Normal White Blood Count 8.3 10 4.0-10.0 10 [facility]: [address] [place] [address] Low Red Blood Count 3.07 10 4.00-5.40 10 [facility]: [address] [place] [address] Low Hemoglobin 9.7 g/dL 12.0-15.5 g/dL [facility]: [address] [place] [address] Low Hematocrit 30.2 % 36.0-47.0 % [facility]: [address] [place] [address] High Mean Corpuscular Volume 98.4 fL 80.0 -96.0 fL [facility]: [address] [place] [address] Normal Mean Corpuscular Hemoglobin 31.6 pg 27.0-33.0 pg [facility]: [address] [place] [address] Normal Mean Corpuscular HGB Conc 32.1 g/dL 32.0-36.5 g/dL [facility]: [address] [place] [address] Normal Red Cell Distribution Width 13.2 % 1 1.5-14.5 % [facility]: [address] [place] [address] Normal Platelet Count, Automated 208 10 150 -450 10 [facility]: [address] [facility] Normal Neutrophils % 65.9 % 36.0-66.0 % [facility]: [address] [facility] Low Lymph % 16.5 % 24.0-44.0 % Final [facility]: [address] [facility] Pine % 11.3 % 0.0-5.0 % Final [facility]: [address] [facility] High Eos % 5.5 % 0.0-3.0 % [facility]: [address] [facility] Normal Baso % 0.4 % 0.0-1.0 % Final [facility]: [address] [facility] Normal Immature Granulocyte % 0.4 % 0-3.0 % [facility]: 0 [facility] Normal Nucleated Red Blood Cell % 0.0 % 0- 0 % [facility]: [address] [facility] Normal Neutrophils # 5.5 10 1.5-8.5 10 [facility]: [address] [facility] Low Lymph # 1.4 10 1.5-5.0 10 [facility]: 0 [facility] High Pine # 0.9 10 0.0-0.8 10 [facility]: 0 [facility] Normal Eos # 0.5 10 0.0-0.5 10 [facility]: [address] [facility] Normal Baso # 0.0 10 0.0-0.2 10 [facility]: 0 [facility] 09/18/2020 BMP, Serum or Plasma Normal Glucose, Fastin g 89 mg/dL 70-100 mg/dL [facility]: 83 0 [facility] Normal Blood Urea Nitrogen 17 mg/dL 7-18 mg /dL [facility]: 0 [facility] Normal Creatinine for GFR 0.76 mg/dL 0.55-1 .30 mg/dL [facility]: 0 [facility] Normal Glomerular Filtration Rate > 60.0 >5 1 [facility]: [address] [place] [address] Normal Sodium Level 140 mEq/L 136-145 mEq/L [facility]: [address] [place] [address] D Potassium Serum 4.7 mEq/L 3.5-5.1 mE q/L [facility]: [address] [place] [address] High Chloride Level 109 mEq/L 98-107 mEq/ L [facility]: [address] [place] [address] Normal Carbon Dioxide Level 28 mEq/L 21-32 mEq/L [facility]: [address] [place] [address] Low Anion Gap 3 mEq/L 8-16 mEq/L [facility]: [address] [place] [address] Low Calcium Level 8.3 mg/dL 8.5-10.1 mg/ dL [facility]: [address] [place] [address] 09/17/2020 CBC W/ Auto Diff Normal White Blood Count 8.7 10 4.0-10.0 10 [facility]: [address] [place] [address] Low Red Blood Count 3.19 10 4.00-5.40 10 [facility]: [address] [place] [address] Low Hemoglobin 9.9 g/dL 12.0-15.5 g/dL [facility]: [address] [place] [address] Low Hematocrit 32.2 % 36.0-47.0 % [facility]: [address] [place] [address] High Mean Corpuscular Volume 100.9 fL 80. 0-96.0 fL [facility]: [address] [place] [address] Normal Mean Corpuscular Hemoglobin 31.0 pg 27.0-33.0 pg [facility]: [address] [place] [address] Low Mean Corpuscular HGB Conc 30.7 g/dL 32.0-36.5 g/dL [facility]: [address] [place] [address] Normal Red Cell Distribution Width 13.7 % 1 1.5-14.5 % [facility]: [address] [place] [address] Normal Platelet Count, Automated 201 10 150 -450 10 [facility]: [address] [facility] High Neutrophils % 78.5 % 36.0-66.0 % [facility]: [address] [facility] Low Lymph % 11.2 % 24.0-44.0 % [facility]: [address] [facility] High Pine % 7.1 % 0.0-5.0 % Final [facility]: [address] [facility] Normal Eos % 2.0 % 0.0-3.0 % [facility]: [address] [facility] Normal Baso % 0.5 % 0.0-1.0 % [facility]: [address] [facility] Normal Immature Granulocyte % 0.7 % 0-3.0 % [facility]: [address] [facility] Normal Nucleated Red Blood Cell % 0.0 % 0- 0 % [facility]: [address] [facility] Normal Neutrophils # 6.8 10 1.5-8.5 10 [facility]: [address] [facility] Low Lymph # 1.0 10 1.5-5.0 10 [facility]: [address] [facility] Normal Pine # 0.6 10 0.0-0.8 10 [facility]: [address] [facility] Normal Eos # 0.2 10 0.0-0.5 10 [facility]: [address] [facility] Normal Baso # 0.0 10 0.0-0.2 10 [facility]: [address] [facility] 09/17/2020 BMP, Serum or Plasma Normal Glucose, Fastin g 84 mg/dL 70-100 mg/dL [facility]: 83 0 [facility] Normal Blood Urea Nitrogen 12 mg/dL 7-18 mg /dL [facility]: [address] [facility] Normal Creatinine for GFR 0.86 mg/dL 0.55-1 .30 mg/dL [facility]: [address] [facility] Normal Glomerular Filtration Rate > 60.0 >5 1 [facility]: [address] [facility] Normal Sodium Level 137 mEq/L 136-145 mEq/L [facility]: [address] [facility] Normal Potassium Serum 3.6 mEq/L 3.5-5.1 mE q/L [facility]: [address] [facility] High Chloride Level 108 mEq/L 98-107 mEq/ L [facility]: [address] [facility] Normal Carbon Dioxide Level 23 mEq/L 21-32 mEq/L [facility]: [address] [facility] Low Anion Gap 6 mEq/L 8-16 mEq/L [facility]: 0 [facility] Low Calcium Level 8.0 mg/dL 8.5-10.1 mg/ dL [facility]: 0 [facility] 09/16/2020 Gas Panel, Arterial Blood Normal ABG pH (Ar terial) 7.375 units 7.350-7.450 units [facility]: 83 0 [facility] Normal ABG Partial Pressure CO2 39.0 mmHg 3 5.0-45.0 mmHg [facility]: 0 [facility] High ABG Partial Pressure O2 149.4 mmHg 7 5.0-100.0 mmHg [facility]: [address] [facility] Normal ABG Total CO2 23.5 mEq/L 22.0-29.0 m Eq/L [facility]: [address] [facility] Normal Abg Hco3 22.3 mEq/L 22.0-26.0 mEq/L [facility]: [address] [facility] Low ABG Base Excess -2.6 -2.0-2.0 [facility]: [address] [facility] Normal ABG Standard HCO3 22.3 mEq/L 22.0-26 .0 mEq/L [facility]: 0 [facility] High ABG O2 Saturation 99.1 % 95.0-99.0 % [facility]: [address] [place] [address] 09/16/2020 CBC W/ Auto Diff Normal White Blood Count 9.9 10 4.0-10.0 10 [facility]: [address] [place] [address] Low Red Blood Count 3.20 10 4.00-5.40 10 [facility]: [address] [place] [address] Panic Low Hemoglobin 9.9 g/dL 12.0-15.5 g/d L [facility]: [address] [place] [address] Low Hematocrit 31.2 % 36.0-47.0 % [facility]: [address] [place] [address] High Mean Corpuscular Volume 97.5 fL 80.0 -96.0 fL [facility]: [address] [place] [address] Normal Mean Corpuscular Hemoglobin 30.9 pg 27.0-33.0 pg [facility]: [address] [place] [address] Low Mean Corpuscular HGB Conc 31.7 g/dL 32.0-36.5 g/dL [facility]: [address] [place] [address] Normal Red Cell Distribution Width 13.2 % 1 1.5-14.5 % [facility]: [address] [place] [address] Normal Platelet Count, Automated 238 10 150 -450 10 [facility]: [address] [place] [address] High Neutrophils % 74.0 % 36.0-66.0 % [facility]: [address] [place] [address] Low Lymph % 16.2 % 24.0-44.0 % Final [facility]: [address] [place] [address] High Pine % 9.1 % 0.0-5.0 % [facility]: [address] [place] [address] Normal Eos % 0.0 % 0.0-3.0 % [facility]: [address] [place] [address] Normal Baso % 0.3 % 0.0-1.0 % [facility]: [address] [place] [address] Normal Immature Granulocyte % 0.4 % 0-3.0 % [facility]: [address] [facility] Normal Nucleated Red Blood Cell % 0.0 % 0- 0 % [facility]: [address] [facility] Normal Neutrophils # 7.3 10 1.5-8.5 10 [facility]: [address] [facility] Normal Lymph # 1.6 10 1.5-5.0 10 [facility]: [address] [facility] High Pine # 0.9 10 0.0-0.8 10 [facility]: [address] [facility] Normal Eos # 0.0 10 0.0-0.5 10 [facility]: [address] [facility] Normal Baso # 0.0 10 0.0-0.2 10 [facility]: [address] [facility] 09/16/2020 BMP, Serum or Plasma High Glucose, Fastin g 101 mg/dL 70-100 mg/dL [facility]: 83 0 [facility] Normal Blood Urea Nitrogen 11 mg/dL 7-18 mg /dL [facility]: 0 [facility] Normal Creatinine for GFR 0.58 mg/dL 0.55-1 .30 mg/dL [facility]: 0 [facility] Normal Glomerular Filtration Rate > 60.0 >5 1 [facility]: [address] [facility] Normal Sodium Level 141 mEq/L 136-145 mEq/L [facility]: 0 [facility] Normal Potassium Serum 4.1 mEq/L 3.5-5.1 mE q/L [facility]: [address] [facility] High Chloride Level 111 mEq/L 98-107 mEq/ L [facility]: 0 [facility] Normal Carbon Dioxide Level 23 mEq/L 21-32 mEq/L [facility]: 0 [facility] Low Anion Gap 7 mEq/L 8-16 mEq/L [facility]: 0 [facility] Low Calcium Level 7.9 mg/dL 8.5-10.1 mg/ dL [facility]: [address] [place] [address] 09/16/2020 Vancomycin, Trough, Serum Normal Va ncomycin Level Trough 17.2 ug/mL 10.0-20.0 ug/mL [facility] nter: [address] [place] [address] 09/15/2020 CBC W/ Auto Diff High White Blood Count 14.6 10 4.0-10.0 10 [facility]: [address] [place] [address] Low Red Blood Count 3.79 10 4.00-5.40 10 [facility]: [address] [place] [address] Normal Hemoglobin 12.2 g/dL 12.0-15.5 g/dL [facility]: [address] [place] [address] Normal Hematocrit 36.9 % 36.0-47.0 % [facility]: [address] [place] [address] High Mean Corpuscular Volume 97.4 fL 80.0 -96.0 fL [facility]: [address] [place] [address] Normal Mean Corpuscular Hemoglobin 32.2 pg 27.0-33.0 pg [facility]: [address] [place] [address] Normal Mean Corpuscular HGB Conc 33.1 g/dL 32.0-36.5 g/dL [facility]: [address] [place] [address] Normal Red Cell Distribution Width 13.2 % 1 1.5-14.5 % [facility]: [address] [place] [address] Normal Platelet Count, Automated 239 10 150 -450 10 [facility]: 0 [facility] High Neutrophils % 93.1 % 36.0-66.0 % [facility]: 0 [facility] Low Lymph % 4.2 % 24.0-44.0 % [facility]: [address] [facility] Normal Pine % 1.6 % 0.0-5.0 % [facility]: 0 [facility] Normal Eos % 0.1 % 0.0-3.0 % [facility]: [address] [facility] Normal Baso % 0.5 % 0.0-1.0 % [facility]: [address] [facility] Normal Immature Granulocyte % 0.5 % 0-3.0 % [facility]: [address] [facility] Normal Nucleated Red Blood Cell % 0.0 % 0- 0 % [facility]: [address] [facility] High Neutrophils # 13.7 10 1.5-8.[address] [facility]: [address] [facility] Low Lymph # 0.6 10 1.5-5.0 10 [facility]: [address] [facility] Normal Pine # 0.2 10 0.0-0.8 10 [facility]: [address] [facility] Normal Eos # 0.0 10 0.0-0.5 10 [facility]: [address] [facility] Normal Baso # 0.1 10 0.0-0.2 10 [facility]: [address] [facility] 09/15/2020 Gas Panel, Arterial Blood Low ABG pH (Ar terial) 7.266 units 7.350-7.450 units [facility]: 83 0 [facility] High ABG Partial Pressure CO2 47.1 mmHg 3 5.0-45.0 mmHg [facility]: [address] [facility] Normal ABG Partial Pressure O2 76.3 mmHg 75 .0-100.0 mmHg [facility]: [address] [facility] Normal ABG Total CO2 22.4 mEq/L 22.0-29.0 m Eq/L [facility]: [address] [facility] Low Abg Hco3 20.9 mEq/L 22.0-26.0 mEq/L [facility]: [address] [facility] Low ABG Base Excess -6.0 -2.0-2.0 [facility]: [address] [facility] Low ABG Standard HCO3 19.5 mEq/L 22.0-26 .0 mEq/L [facility]: [address] [facility] Low ABG O2 Saturation 93.8 % 95.0-99.0 % [facility]: [address] [facility] 09/15/2020 BMP, Serum or Plasma High Glucose, Fastin g 146 mg/dL 70-100 mg/dL [facility]: 83 0 [facility] Normal Blood Urea Nitrogen 15 mg/dL 7-18 mg /dL [facility] Hospital: 8[address] [facility] Normal Creatinine for GFR 0.60 mg/dL 0.55-1 .30 mg/dL [facility]: 0 [facility] Normal Glomerular Filtration Rate > 60.0 >5 1 [facility]: [address] [facility] Normal Sodium Level 137 mEq/L 136-145 mEq/L [facility]: [address] [facility] Normal Potassium Serum 4.1 mEq/L 3.5-5.1 mE q/L [facility]: [address] [facility] High Chloride Level 110 mEq/L 98-107 mEq/ L [facility]: [address] [facility] Normal Carbon Dioxide Level 23 mEq/L 21-32 mEq/L [facility]: [address] [facility] Low Anion Gap 4 mEq/L 8-16 mEq/L [facility]: [address] [facility] Low Calcium Level 8.3 mg/dL 8.5-10.1 mg/ dL [facility]: [address] [facility] 09/15/2020 Type + Screen, Serum Normal Blood Type A posit fatuma [facility]: [address] [facility] Normal Ab Screen (Indirect Ronal)vis negat fatuma [facility]: [address] [facility] 09/13/2020 Carboxyhemoglobin High Carboxyhemoglobin 1.8 % 0.0-1.5 % [facility]: [address] [facility] 09/13/2020 Cbc Normal White Blood Count 6.2 10 4.0-10. 0 10 [facility]: [address] [place] [address] Low Red Blood Count 3.93 10 4.00-5.40 10 [facility]: 0 [facility] Normal Hemoglobin 12.5 g/dL 12.0-15.5 g/dL [facility]: 0 [facility] Normal Hematocrit 38.9 % 36.0-47.0 % [facility]: [address] [place] [address] High Mean Corpuscular Volume 99.0 fL 80.0 -96.0 fL [facility]: [address] [place] [address] Normal Mean Corpuscular Hemoglobin 31.8 pg 27.0-33.0 pg [facility]: [address] [place] [address] Normal Mean Corpuscular HGB Conc 32.1 g/dL 32.0-36.5 g/dL [facility]: [address] [place] [address] Normal Red Cell Distribution Width 13.3 % 1 1.5-14.5 % [facility]: [address] [place] [address] Normal Platelet Count, Automated 258 10 150 -450 10 [facility]: [address] [place] [address] Normal Nucleated Red Blood Cell % 0.0 % 0- 0 % [facility]: 0 [facility] 09/13/2020 Partial Thromboplastin Time Normal Partial Thromboplastin Time 27.5 seconds 24.2-38.5 seconds [facility] nter: 0 [facility] 09/13/2020 BMP, Serum or Plasma Normal Glucose, Fastin g 86 mg/dL 70-100 mg/dL [facility]: 83 0 [facility] High Blood Urea Nitrogen 23 mg/dL 7-18 mg /dL [facility]: [address] [place] [address] Normal Creatinine for GFR 0.78 mg/dL 0.55-1 .30 mg/dL [facility]: [address] [place] [address] Normal Glomerular Filtration Rate > 60.0 >5 1 [facility]: [address] [facility] Normal Sodium Level 141 mEq/L 136-145 mEq/L [facility]: [address] [facility] Normal Potassium Serum 4.7 mEq/L 3.5-5.1 mE q/L [facility]: [address] [facility] High Chloride Level 112 mEq/L 98-107 mEq/ L [facility]: [address] [facility] Normal Carbon Dioxide Level 25 mEq/L 21-32 mEq/L [facility]: [address] [facility] Low Anion Gap 4 mEq/L 8-16 mEq/L [facility]: [address] [facility] Normal Calcium Level 8.7 mg/dL 8.5-10.1 mg/ dL [facility]: [address] [facility] 09/13/2020 Urinalysis, Dipstick Normal Appearance, Uri ne clear clear [facility]: [address] [facility] Normal Color, Urine yellow yellow [facility]: [address] [facility] Normal pH,urine 6.0 units 5.0-9.0 units [facility]: [address] [facility] Normal Specific [place] Urine Auto 1.019 1 .002-1.035 [facility]: [address] [facility] Normal Protein, Urine Auto negative mg/dL n egative mg/dL [facility]: [address] [facility] Normal Glucose, Urine (UA) Auto negative mg /dL negative mg/dL [facility]: [address] [facility] Normal Ketone, Urine Auto negative mg/dL ne gative mg/dL [facility]: [address] [facility] Normal Urobilinogen, Urine Auto 0.2 mg/dL 0 .0-2.0 mg/dL [facility]: [address] [facility] Normal Bilirubin, Urine Auto negative negat fatuma [facility]: [address] [facility] Normal Nitrite, Urine Auto negative negativ e [facility]: [address] [facility] Normal Leukocyte Esterase, Urine Auto negat fatuma negative [facility]: [address] [facility] Normal Blood, Urine Blood negative negative [facility]: [address] [facility] Normal WBC, Urine Auto 1 /hpf 0-3 /hpf [facility]: [address] [facility] High RBC, Urine Auto 5 /hpf 0-3 /hpf [facility]: [address] [facility] Normal Bacteria, Urine Auto negative negati ve [facility]: [address] [facility] Normal Squamous Epithelial Cell Ur AU 1 /hp f 0-6 /hpf [facility]: [address] [facility] Normal Mucus, Urine small negative [facility]: [address] [facility] Normal Hyaline Cast, Urine Auto 0 /lpf 0-1 /lpf [facility]: [address] [facility] 09/13/2020 Gas Panel, Arterial Blood Normal ABG pH (Ar terial) 7.375 units 7.350-7.450 units [facility]: 83 0 [facility] Low ABG Partial Pressure CO2 32.0 mmHg 3 5.0-45.0 mmHg [facility]: [address] [facility] Normal ABG Partial Pressure O2 88.2 mmHg 75 .0-100.0 mmHg [facility]: [address] [facility] Low ABG Total CO2 19.3 mEq/L 22.0-29.0 m Eq/L [facility]: [address] [facility] Low Abg Hco3 18.3 mEq/L 22.0-26.0 mEq/L [facility]: [address] [facility] Low ABG Base Excess -5.9 -2.0-2.0 [facility]: [address] [facility] Low ABG Standard HCO3 19.6 mEq/L 22.0-26 .0 mEq/L [facility]: [address] [facility] Normal ABG O2 Saturation 97.2 % 95.0-99.0 % [facility]: [address] [facility] 09/13/2020 PT/INR Normal Prothrombin Time 13.0 secon ds 12.5-14.3 seconds [facility]: [address] [facility] Normal Inr 0.96 [facility]: [address] [facility] 08/18/2020 Urinalysis, Dipstick Normal Appearance, Uri ne clear clear [facility]: [address] [facility] Normal Color, Urine yellow yellow [facility]: [address] [facility] Normal pH,urine 5.0 units 5.0-9.[address] [facility]: [address] [facility] Normal Specific [place] Urine Auto 1.015 1 .002-1.035 [facility]: [address] [facility] Normal Protein, Urine Auto negative mg/dL n egative mg/dL [facility]: [address] [facility] Normal Glucose, Urine (UA) Auto negative mg /dL negative mg/dL [facility]: [address] [facility] Normal Ketone, Urine Auto negative mg/dL ne gative mg/dL [facility]: [address] [facility] Normal Urobilinogen, Urine Auto 0.2 mg/dL 0 .0-2.0 mg/dL [facility]: [address] [facility] Normal Bilirubin, Urine Auto negative negat fatuma [facility]: [address] [facility] Normal Nitrite, Urine Auto negative negativ e [facility]: [address] [facility] High Leukocyte Esterase, Urine Auto 1+ negative [facility]: [address] [facility] High Blood, Urine Blood 1+ negative F inal [facility]: [address] [facility] High WBC, Urine Auto 10 /hpf 0-3 /hpf [facility]: [address] [facility] Normal RBC, Urine Auto 2 /hpf 0-3 /hpf Ava chamberlain [facility]: [address] [facility] Normal Bacteria, Urine Auto negative negati ve Final [facility]: [address] [facility] Normal Squamous Epithelial Cell Ur AU 0 /hp f 0-6 /hpf Final [facility]: [address] [facility] Normal Mucus, Urine small negative Final [facility]: [address] [facility] Normal Hyaline Cast, Urine Auto 0 /lpf 0-1 /lpf Final [facility]: [address] [facility] Past Encounters 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 09/14/2020 Posttraumatic Stress Disorder; [facility]ipolar II [facility] [address] [place] [phone], Ph. 09/01/2020 Posttraumatic Stress Disorder; Bipolar II Disorder [facility]: [address] [place] [phone], Ph. 08/26/2020 Posttraumatic Stress Disorder; Bipolar II Disorder [facility]: [address] [place] [phone], Ph. 08/18/2020 Bipolar II Disorder [facility]: [address] [place] [phone], Ph. 08/18/2020 Increased Frequency of Urination Pa Mcdonough MD: [address] [place] [phone], Ph. 08/06/2020 Bipolar II Disorder [facility]: [address] [place] [phone], Ph. 08/04/2020 Bipolar II Disorder [facility]: [address] [place] [phone], Ph. Social History Tobacco Smoking Status Former [...] 26.2 kg/m2 117/74 mm[Hg] 08/18/2020 11:20AM ESTABLISHED [id number] Height Weight BMI Blood Pressure 63 in [...]
--- OUTSIDE RECORDS SUMMARY | 2020-11-12 19:01 | CCD ---
Author Organization Unknown Address [address] [place] [address] Phone [phone] Care Team Providers Care Jigmaker Name Role Phone DRE BRUCE 129 [phone] DEVI BOWIE 114 [phone] [facility] 107 [phone] Allergies Code Code System Name Reaction Severity [...] Chronic Tension-type Headache Active 02/06/2020 Hi story [place] Lesion of Lung Active 03/15/2020 History Acute Cystitis Active 04/02/2020 History Procedures Notes: section x2, Gallbladder, GERD, D&C, Colonoscopy , Endoscopy , "cancer removed from uterus" Results Lab Results None recorded. Past Encounters 08/18/2020 Bipolar II Disorder Abbi Snyder, [employer]: [address] [place] [address], Ph. 08/18/2020 Increased Frequency of Urination Pa Mcdonough MD: [address] [place] [address], Ph. 08/06/2020 Bipolar II Disorder Abbi Snyder, [facility]: [address] [place] [address], Ph. 08/04/2020 Bipolar II Disorder Abbi Snyder, [facility]: [address] [place] [address], Ph. Social History Tobacco Smoking Status Former Smoker Vaccine List Vaccine Type influenza, seasonal, injectable 10/29/20150.5 mL 11/29/20170.5 mL Plan of Care Reminders Provider Appointments None recorded. Lab None recorded. Referral None recorded. Procedures None recorded. Surgeries None recorded. Imaging None recorded. Vitals 08/18/2020 11:20AM ESTABLISHED [id number] Height Weight BMI Blood Pressure 63 in [...]
--- OUTSIDE RECORDS SUMMARY | 2020-11-12 19:01 | CCD ---
Author Organization Unknown Address [address] [place] [address] Phone [phone] Care Team Providers Care Chief Risk Officer Name Role Phone DRE BRUCE 129 [phone] DEVI BOWIE 114 [phone] [facility] 107 [phone] Allergies Code Code System Name Reaction Severity [...] tablets in dose pack Active Not available cholecalciferol (vitamin D3) 25 mcg (1,0 00 [...] Chronic Tension-type Headache Active 02/06/2020 Hi story [place] Lesion of Lung Active 03/15/2020 History Acute Cystitis Active 04/02/2020 History Procedures Notes: section x2, Gallbladder, GERD, D&C, Colonoscopy , Endoscopy , "cancer removed from uterus" Results Lab Results Date Name Specimen Result Interpretation Description Value Range Status Address 09/13/2020 Carboxyhemoglobin High Carboxyhemoglobin 1.8 % 0.0-1.5 % [facility]: [address] [place] [address] 09/13/2020 Cbc Normal White Blood Count 6.2 10 4.0-10. 0 10 [facility]: [address] [place] [address] Low Red Blood Count 3.93 10 4.00-5.40 10 [facility]: [address] [place] [address] Normal Hemoglobin 12.5 g/dL 12.0-15.5 g/dL [facility]: [address] [place] [address] Normal Hematocrit 38.9 % 36.0-47.0 % [facility]: [address] [place] [address] High Mean Corpuscular Volume 99.0 fL 80.0 -96.0 fL [facility]: [address] [place] [address] Normal Mean Corpuscular Hemoglobin 31.8 pg 27.0-33.0 pg [facility]: [address] [place] [address] Normal Mean Corpuscular HGB Conc 32.1 g/dL 32.0-36.5 g/dL [facility]: [address] [place] [address] Normal Red Cell Distribution Width 13.3 % 1 1.5-14.5 % [facility]: [address] [place] [address] Normal Platelet Count, Automated 258 10 150 -450 10 [facility]: [address] [place] [address] Normal Nucleated Red Blood Cell % 0.0 % 0- 0 % [facility]: [address] [place] [address] 09/13/2020 Partial Thromboplastin Time Normal Partial Thromboplastin Time 27.5 seconds 24.2-38.5 seconds [facility] nter: [address] [place] [address] 09/13/2020 BMP, Serum or Plasma Normal Glucose, Fastin g 86 mg/dL 70-100 mg/dL [facility]: 83 0 [facility] High Blood Urea Nitrogen 23 mg/dL 7-18 mg /dL [facility]: 0 [facility] Normal Creatinine for GFR 0.78 mg/dL 0.55-1 .30 mg/dL [facility]: [address] [place] [address] Normal Glomerular Filtration Rate > 60.0 >5 1 [facility]: 830 [facility] Normal Sodium Level 141 mEq/L 136-145 mEq/L [facility]: 0 [facility] Normal Potassium Serum 4.7 mEq/L 3.5-5.1 mE q/L [facility]: 0 [facility] High Chloride Level 112 mEq/L 98-107 mEq/ L [facility]: [address] [place] [address] Normal Carbon Dioxide Level 25 mEq/L 21-32 mEq/L [facility]: [address] [place] [address] Low Anion Gap 4 mEq/L 8-16 mEq/L [facility]: 0 [facility] Normal Calcium Level 8.7 mg/dL 8.5-10.1 mg/ dL [facility]: 0 [facility] 09/13/2020 Urinalysis, Dipstick Normal Appearance, Uri ne clear clear [facility]: 0 [facility] Normal Color, Urine yellow yellow [facility]: [address]30 [facility] Normal pH,urine 6.0 units 5.0-9.0 units Fin [facility]: 830 [facility] Normal Specific [place] Urine Auto 1.019 1 .002-1.035 [facility]: 0 [facility] Normal Protein, Urine Auto negative mg/dL n egative mg/dL [facility]: 0 [facility] Normal Glucose, Urine (UA) Auto negative mg /dL negative mg/dL [facility]: 0 [facility] Normal Ketone, Urine Auto negative mg/dL ne gative mg/dL [facility]: 0 [facility] Normal Urobilinogen, Urine Auto 0.2 mg/dL 0 .0-2.0 mg/dL [facility]: 830 [facility] Normal Bilirubin, Urine Auto negative negat fatuma [facility]: 830 [facility] Normal Nitrite, Urine Auto negative negativ e [facility]: 830 [facility] Normal Leukocyte Esterase, Urine Auto negat fatuma negative [facility]: 830 [facility] Normal Blood, Urine Blood negative negative [facility]: 830 [facility] Normal WBC, Urine Auto 1 /hpf 0-3 /hpf [facility]: [address]30 [facility] High RBC, Urine Auto 5 /hpf 0-3 /hpf [facility]: 830 [facility] Normal Bacteria, Urine Auto negative negati ve [facility]: 830 [facility] Normal Squamous Epithelial Cell Ur AU 1 /hp f 0-6 /hpf [facility]: 830 [facility] Normal Mucus, Urine small negative [facility]: [address]30 [facility] Normal Hyaline Cast, Urine Auto 0 /lpf 0-1 /lpf [facility]: 830 [facility] 09/13/2020 Gas Panel, Arterial Blood Normal ABG pH (Ar terial) 7.375 units 7.350-7.450 units [facility]: 83 0 [facility] Low ABG Partial Pressure CO2 32.0 mmHg 3 5.0-45.0 mmHg [facility]: 830 [facility] Normal ABG Partial Pressure O2 88.2 mmHg 75 .0-100.0 mmHg [facility]: 830 [facility] Low ABG Total CO2 19.3 mEq/L 22.0-29.0 m Eq/L [facility]: 830 [facility] Low Abg Hco3 18.3 mEq/L 22.0-26.0 mEq/L [facility]: 830 [facility] Low ABG Base Excess -5.9 -2.0-2.0 Ava l [facility]: [address] [facility] Low ABG Standard HCO3 19.6 mEq/L 22.0-26 .0 mEq/L [facility]: 830 [facility] Normal ABG O2 Saturation 97.2 % 95.0-99.0 % [facility]: 830 [facility] 09/13/2020 PT/INR Normal Prothrombin Time 13.0 secon ds 12.5-14.3 seconds [facility]: [address]30 [facility] Normal Inr 0.96 [facility]: 830 [facility] 08/18/2020 Urinalysis, Dipstick Normal Appearance, Uri ne clear clear [facility]: [address] [facility] Normal Color, Urine yellow yellow [facility]: [address] [facility] Normal pH,urine 5.0 units 5.0-9.0 units [facility]: [address] [facility] Normal Specific [place] Urine Auto 1.015 1 .002-1.035 [facility]: 8[address] [facility] Normal Protein, Urine Auto negative mg/dL n egative mg/dL [facility]: [address]30 [facility] Normal Glucose, Urine (UA) Auto negative mg /dL negative mg/dL [facility]: [address]30 [facility] Normal Ketone, Urine Auto negative mg/dL ne gative mg/dL [facility]: [address] [facility] Normal Urobilinogen, Urine Auto 0.2 mg/dL 0 .0-2.0 mg/dL [facility]: [address] [facility] Normal Bilirubin, Urine Auto negative negat fatuma [facility]: [address] [facility] Normal Nitrite, Urine Auto negative negativ e [facility]: [address] [facility] High Leukocyte Esterase, Urine Auto 1+ negative [facility]: [address] [facility] High Blood, Urine Blood 1+ negative F inal [facility]: [address] [facility] High WBC, Urine Auto 10 /hpf 0-3 /hpf [facility]: [address] [facility] Normal RBC, Urine Auto 2 /hpf 0-3 /hpf Ava l [facility]: [address] [facility] Normal Bacteria, Urine Auto negative negati ve Final [facility]: [address] [facility] Normal Squamous Epithelial Cell Ur AU 0 /hp f 0-6 /hpf [facility]: [address] [facility] Normal Mucus, Urine small negative [facility]: [address] [facility] Normal Hyaline Cast, Urine Auto 0 /lpf 0-1 /lpf [facility]: [address] [facility] Past Encounters 09/14/2020 Posttraumatic Stress Disorder; Bipolar II Disorder [facility]: [address] [place] [phone], Ph. 09/01/2020 Posttraumatic Stress Disorder; Bipolar II Disorder [facility]: [address] [place] [phone], Ph. 08/26/2020 Posttraumatic Stress Disorder; Bipolar II Disorder [facility]: [address] [place] [phone], Ph. 08/18/2020 Bipolar II Disorder [facility]: [address] [place] [phone], Ph. 08/18/2020 Increased Frequency of Urination Pa Mcdonough MD: [address] [place] [phone], Ph. 08/06/2020 Bipolar II Disorder [facility]: [address] [place] [phone], Ph. 08/04/2020 Bipolar II Disorder [facility]: [address] [place] [phone], Ph. Social History Tobacco Smoking Status Former Smoker Vaccine List Vaccine Type influenza, seasonal, injectable 10/29/20150.5 mL 11/29/20170.5 mL Plan of Care Reminders Provider Appointments None recorded. Lab None recorded. Referral None recorded. Procedures None recorded. Surgeries None recorded. Imaging None recorded. Vitals 08/18/2020 11:20AM ESTABLISHED [id number] Height Weight BMI Blood Pressure 63 in [...]
--- OUTSIDE RECORDS SUMMARY | 2020-11-12 19:05 | CCD ---
Author Author [facility] Address Unknown Phone Unavailable Support Name Relationship Address Phone Jaqueline Galaviz Next Of Kin [address] [place] [address] Lencho Turk MD Next Of Kin [address] [place] [address] Bob SCHULZ, Juanita Next Of Kin [address] [place] [address] AYO HURST Next Of Kin [address] [facility] [address] [place] [address] Ceasar ORTIZ, Pa Next Of Kin [address] [place] [address] Anna Marie Stephenson Next Of Kin [address] [place] [address] AYO ORTEGA Next Of Kin [address] [facility] [address], [place] [address] PAYTON RAE Next Of Kin [address] [facility] [address] [facility], [address] MORRIS LÓPEZ Next Of Kin [address] [place] [address] DISABLED Next Of Kin Unknown Unavailable DEVI RAE Next Of Kin [address] [facility] [place] [address] JAZMIN ZEE Next Of Kin JOHNSON [address] [facility], [place] [id number] MORRIS CASTILLO Next Of Kin [address] [place] [address] UE Next Of Kin Unknown Unavailable JEFFREYBERNY Next Of Kin [address] [address] morris lópez ECON Unknown [phone] ortega, Musa [address], [place] [address] [phone] Care Team Providers Care Telecommunications Analyst Name Role Phone Urbano Cobb MD Unavailable Unavailable Reza, Urbano Kaushik Unavailable Unavailable Reza, Urbano Kaushik MD Unavailable Unavailable Reza, Urbano Kaushik MD Unavailable Unavailable Reza, Urbano Kaushik MD Unavailable Unavailable Reza, Urbano Kaushik MD Unavailable Unavailable Reza, Urbano Kaushik MD Unavailable Unavailable Reza, Urbano Kaushik MD Unavailable Unavailable Reza, Urbano Kaushik MD Unavailable Unavailable Reza, Urbano Kaushik MD Unavailable Unavailable Reza, Urbano Kaushik MD Unavailable Unavailable Reza, Urbano Kaushik MD Unavailable Unavailable Reza, Urbano Kaushik MD Unavailable Unavailable Reza, Urbano Kaushik MD Unavailable Unavailable Reza, Urbano Kaushik MD Unavailable Unavailable Reza, Urbano Kaushik MD Unavailable Unavailable Reza, Urbano Kaushik MD Unavailable Unavailable Reza, Urbano Kaushik MD Unavailable Unavailable Reza, Urbano Kaushik MD Unavailable Unavailable Reza, Urbano Kaushik MD Unavailable Unavailable Reza, Urbano Kaushik MD Unavailable Unavailable Reza, Urbano Kaushik MD Unavailable Unavailable Reza, Urbano Kaushik MD Unavailable Unavailable Reza, Urbano Kaushik MD Unavailable Unavailable Reza, Urbano Kaushik MD Unavailable Unavailable Reza, Urbano Kaushik MD Unavailable Unavailable Reza, Urbano Kaushik MD Unavailable Unavailable Reza, Urbano Kaushik MD Unavailable Unavailable Reza, Urbano Kaushik MD Unavailable Unavailable Reza, Urbano Kaushik MD Unavailable Unavailable Reza, Urbano Kaushik MD Unavailable Unavailable Reza, Urbano Kaushik MD Unavailable Unavailable Reza, Urbano Kaushik MD Unavailable Unavailable Reza, Urbano Kaushik MD Unavailable Unavailable Reza, Urbano Kaushik MD Unavailable Unavailable Reza, Urbano Kaushik MD Unavailable Unavailable Reza, Urbano Kaushik ORTIZ Unavailable Unavailable Reza, Urbano Kaushik ORTIZ Unavailable Unavailable Abbi Snyder Unavailable [phone] Chance Mcdonough MD Unavailable Unavailable Chance Mcdonough MD Unavailable Unavailable Chance Mcdonough MD Unavailable Unavailable Chance Mcdonough MD Unavailable Unavailable Chance Mcdonough MD Unavailable Unavailable Chance Mcdonough MD Unavailable Unavailable Chance Mcdonough MD Unavailable Unavailable Chance Mcdonough MD Unavailable Unavailable Chance Mcdonough MD Unavailable Unavailable Chance Mcdonough MD Unavailable Unavailable Chance Mcdonough MD Unavailable Unavailable Chance Mcdonough MD Unavailable Unavailable Chance Mcdonough MD Unavailable Unavailable Chance Mcdonough MD Unavailable Unavailable Chance Mcdonough MD Unavailable Unavailable Chance Mcdonough MD Unavailable Unavailable Chance Mcdonough MD Unavailable Unavailable Chance Mcdonough MD Unavailable Unavailable Chance Mcdonough MD Unavailable Unavailable Chance Mcdonough MD Unavailable Unavailable Chance Mcdonough MD Unavailable Unavailable Chance Mcdonough MD Unavailable Unavailable Chance Mcdonough MD Unavailable Unavailable Chance Mcdonough MD Unavailable Unavailable Chance Mcdonough MD Unavailable Unavailable Chance Mcdonough MD Unavailable Unavailable Chance Mcdonough MD Unavailable Unavailable Chance Mcdonough MD Unavailable Unavailable Chance Mcdonough MD Unavailable Unavailable Chance Mcdonough MD Unavailable Unavailable Chance Mcdonough MD Unavailable Unavailable Chance Mcdonough MD Unavailable Unavailable Chance Mcdonough MD Unavailable Unavailable Chance Mcdonough MD Unavailable Unavailable Chance Mcdonough MD Unavailable Unavailable Chance Mcdonough MD Unavailable Unavailable Chance Mcdonough MD Unavailable Unavailable Chance Mcdonough MD Unavailable Unavailable Chance Mcdonough MD Unavailable Unavailable Chance Mcdonough MD Unavailable Unavailable Chance Mcdonough MD Unavailable Unavailable Chance Mcdonough MD Unavailable Unavailable Chance Mcdonough MD Unavailable Unavailable Chance Mcdonough MD Unavailable Unavailable Chance Mcdonough MD Unavailable Unavailable Chance Mcdonouhg MD Unavailable Unavailable Chance Mcdonough MD Unavailable Unavailable Chance Mcdonough MD Unavailable Unavailable Chance Mcdonough MD Unavailable Unavailable Chance Mcdonough MD Unavailable Unavailable Chance Mcdonough MD Unavailable Unavailable Chance Mcdonough MD Unavailable Unavailable Chance Mcdonough MD Unavailable Unavailable Chance Mcdonough MD Unavailable Unavailable Chance Mcdonough MD Unavailable Unavailable Chance Mcdonough MD Unavailable Unavailable Chance Mcdonough MD Unavailable Unavailable Chance Mcdonough MD Unavailable Unavailable Chance Mcdonough MD Unavailable Unavailable Chance Mcdonough MD Unavailable Unavailable Chance Mcdonough MD Unavailable Unavailable Chance Mcdonough MD Unavailable Unavailable Chance Mcdonough MD Unavailable Unavailable Chance Mcdonough MD Unavailable Unavailable Chance Mcdonough MD Unavailable Unavailable Chance Mcdonough MD Unavailable Unavailable Chance Mcdonough MD Unavailable Unavailable Chance Mcdonough MD Unavailable Unavailable Chance Mcdonough MD Unavailable Unavailable Chance Mcdonough MD Unavailable Unavailable Chance Mcdonough MD Unavailable Unavailable Chance Mcdonough MD Unavailable Unavailable Chance Mcdonough MD Unavailable Unavailable Chance Mcdonough MD Unavailable Unavailable Chance Mcdonough MD Unavailable Unavailable Chance Mcdonough MD Unavailable Unavailable Chance Mcdonough MD Unavailable Unavailable Chance Mcdonough MD Unavailable Unavailable Chance Mcdonough MD Unavailable Unavailable Chance Mcdonough MD Unavailable Unavailable Chance Mcdonough MD Unavailable Unavailable Chance Mcdonough MD Unavailable Unavailable Chance Mcdonough MD Unavailable Unavailable Chance Mcdonough MD Unavailable Unavailable Chance Mcdonough MD Unavailable Unavailable Chance Mcdonough MD Unavailable Unavailable Chance Mcdonough MD Unavailable Unavailable Chance Mcdonough MD Unavailable Unavailable Chance Mcdonough MD Unavailable Unavailable Juanita Rojas SUPERVISORY FORESTER SUPERVISORY FORESTER Unavailable Unavailable KelfordRenard lainez Jr, MD Unavailable Unavailable Renard Joiner Jr, MD Unavailable Unavailable Kelford Demond Valadezlas Evens ORTIZ Unavailable Unavailable Kelford JrRenard MD Unavailable Unavailable Kelford JrDemondRenard Evens ORTIZ Unavailable Unavailable Kelford Renard Valadez MD Unavailable Unavailable Kelford JrRenard MD Unavailable Unavailable Kelford JrRenard MD Unavailable Unavailable Kelford JrRenard MD Unavailable Unavailable Marisel JrRenard MD Unavailable Unavailable Marisel JrRenard MD Unavailable Unavailable Marisel JrRenard MD Unavailable Unavailable Kelford JrRenard MD Unavailable Unavailable Kelford JrRenard MD Unavailable Unavailable Kelford JrRenard MD Unavailable Unavailable Marisel JrRenard MD Unavailable Unavailable Kelford JrRenard MD Unavailable Unavailable Marisel JrRenard MD Unavailable Unavailable Kelford JrRenard MD Unavailable Unavailable Marisel JrRenard MD Unavailable Unavailable Kelford JrRenard MD Unavailable Unavailable Marisel JrRenard MD Unavailable Unavailable Marisel JrRenard MD Unavailable Unavailable Kelford JrRenard MD Unavailable Unavailable Marisel JrRenard MD Unavailable Unavailable Marisel JrRenard MD Unavailable Unavailable Marisel JrRenard MD Unavailable Unavailable Kelford JrRenard MD Unavailable Unavailable Kelford JrRenard MD Unavailable Unavailable Kelford JrRenard MD Unavailable Unavailable Kelford JrRenard MD Unavailable Unavailable Kelford Renard Valadez MD Unavailable Unavailable Marisel Renard Valadez MD Unavailable Unavailable Marisel Renard Valadez MD Unavailable Unavailable Kelford JrRenard MD Unavailable Unavailable Marisel JrRenard MD Unavailable Unavailable Kelford JrRenard MD Unavailable Unavailable Kelford Renard Valadez MD Unavailable Unavailable Marisel Renard Valadez MD Unavailable Unavailable Marisel JrRenard MD Unavailable Unavailable Marisel JrRenard MD Unavailable Unavailable Marisel JrRenard MD Unavailable Unavailable Kelford JrRenard MD Unavailable Unavailable Marisel JrRenard MD Unavailable Unavailable Kelford Renard Valadez MD Unavailable Unavailable Kelford JrRenard MD Unavailable Unavailable Kelford JrRenard MD Unavailable Unavailable Kelford JrRenard MD Unavailable Unavailable Kelford JrRenard MD Unavailable Unavailable Kelford JrRenard MD Unavailable Unavailable Kelford JrRenard MD Unavailable Unavailable Kelford JrRenard MD Unavailable Unavailable Marisel JrRenard MD Unavailable Unavailable Kelford JrRenard MD Unavailable Unavailable Kelford JrRenard MD Unavailable Unavailable Marisel Jr, Renard Horner MD Unavailable Unavailable Kelford Jr, Renard Horner MD Unavailable Unavailable Kelford Jr, Renard Horner MD Unavailable Unavailable Marisel Jr, Renard Horner MD Unavailable Unavailable Marisel Jr, Renard Horner MD Unavailable Unavailable Kelford Jr, Renard Horner MD Unavailable Unavailable Marisel Jr, Renard Horner MD Unavailable Unavailable Kelford Jr, Renard Horner MD Unavailable Unavailable Marisel Jr, Renard Horner MD Unavailable Unavailable Marisel Jr, Renard Horner MD Unavailable Unavailable Marisel Jr, Renard Horner MD Unavailable Unavailable Kelford Jr, Renard Horner MD Unavailable Unavailable Kelford Jr, Renard Horner MD Unavailable Unavailable Kelford Jr, Renard Horner MD Unavailable Unavailable Marisel Jr, Renard Horner MD Unavailable Unavailable Marisel Jr, Renard Horner MD Unavailable Unavailable Kelford Jr, Renard Horner MD Unavailable Unavailable Marisel Jr, Renard Horner MD Unavailable Unavailable Marisel Jr, Renard Horner MD Unavailable Unavailable Kelford Jr, Renard Horner MD Unavailable Unavailable Kelford Jr, Renard Horner MD Unavailable Unavailable Kelford Jr, Renard Horner MD Unavailable Unavailable Kelford Jr, Renard Horner MD Unavailable Unavailable Kelford Jr, Renard Horner MD Unavailable Unavailable Marisel Jr, Renard Horner MD Unavailable Unavailable Kelford Jr, Renard Horner MD Unavailable Unavailable Rojas, F Juanita SUPERVISORY FORESTER-BC Unavailable Unavailable Rojas, F Juanita SUPERVISORY FORESTER-BC Unavailable Unavailable Rojas, F Juanita SUPERVISORY FORESTER-BC Unavailable Unavailable Rojas, F Juanita SUPERVISORY FORESTER-BC Unavailable Unavailable Rojas, F Juanita SUPERVISORY FORESTER-BC Unavailable Unavailable Rojas, F Juanita SUPERVISORY FORESTER-BC Unavailable Unavailable Rojas, F Juanita SUPERVISORY FORESTER-BC Unavailable Unavailable Rojas, F Juanita SUPERVISORY FORESTER-BC Unavailable Unavailable Rojas, F Juanita SUPERVISORY FORESTER-BC Unavailable Unavailable Rojas, F Juanita SUPERVISORY FORESTER-BC Unavailable Unavailable Rojas, F Juanita SUPERVISORY FORESTER-BC Unavailable Unavailable Rojas, F Juanita SUPERVISORY FORESTER-BC Unavailable Unavailable Rojas, F Juanita SUPERVISORY FORESTER-BC Unavailable Unavailable Rojas, F Juanita SUPERVISORY FORESTER-BC Unavailable Unavailable Rojas, F Juanita SUPERVISORY FORESTER-BC Unavailable Unavailable Rojas, F Juanita SUPERVISORY FORESTER-BC Unavailable Unavailable Rojas, F Juanita SUPERVISORY FORESTER-BC Unavailable Unavailable Rojas, F Juanita SUPERVISORY FORESTER-BC Unavailable Unavailable Rojas, F Juanita SUPERVISORY FORESTER-BC Unavailable Unavailable Rojas, F Juanita SUPERVISORY FORESTER-BC Unavailable Unavailable Rojas, F Juanita SUPERVISORY FORESTER-BC Unavailable Unavailable Rojas, F Juanita SUPERVISORY FORESTER-BC Unavailable Unavailable Sevilla, Sumendra MD Unavailable Unavailable Sevilla, Sumendra MD Unavailable Unavailable Sevilla, Sumendra MD Unavailable Unavailable Sevilla, Sumendra MD Unavailable Unavailable Sevilla, Sumendra MD Unavailable Unavailable Sevilla, Sumendra MD Unavailable Unavailable Sevilla, Sumendra MD Unavailable Unavailable Sevilla, Sumendra MD Unavailable Unavailable Sevilla, Sumendra MD Unavailable Unavailable Sevilla, Sumendra MD Unavailable Unavailable Sevilla, Sumendra MD Unavailable Unavailable Sevilla, Sumendra MD Unavailable Unavailable Sevilla, Sumendra MD Unavailable Unavailable Sevilla, Sumendra MD Unavailable Unavailable Sevilla, Sumendra MD Unavailable Unavailable Sevilla, Sumendra MD Unavailable Unavailable Sevilla, Sumendra MD Unavailable Unavailable Sevilla, Sumendra MD Unavailable Unavailable Sevilla, Sumendra MD Unavailable Unavailable Sevilla, Sumendra MD Unavailable Unavailable Sevilla, Sumendra MD Unavailable Unavailable Sevilla, Sumendra MD Unavailable Unavailable Sevilla, Sumendra MD Unavailable Unavailable Sevilla, Sumendra MD Unavailable Unavailable Sevilla, Sumendra MD Unavailable Unavailable Sevilla, Sumendra MD Unavailable Unavailable Sevilla, Sumendra MD Unavailable Unavailable Sevilla, Sumendra MD Unavailable Unavailable Sevilla, Sumendra MD Unavailable Unavailable Sevilla, Sumendra MD Unavailable Unavailable Sevilla, Sumendra MD Unavailable Unavailable Sevilla, Sumendra MD Unavailable Unavailable Sevilla, Sumendra MD Unavailable Unavailable Sevilla, Sumendra MD Unavailable Unavailable GIORDANO, DAISY JAQUELINE RPA-C Unavailable Unavailable GIORDANO, DAISY JAQUELINE RPA-C Unavailable Unavailable GIORDANO, DAISY JAQUELINE RPA-C Unavailable Unavailable GIORDANO, DAISY JAQUELINE RPA-C Unavailable Unavailable GIORDANO, DAISY JAQUELINE RPA-C Unavailable Unavailable GIORDANO, DAISY JAQUELINE RPA-C Unavailable Unavailable GIORDANO, DAISY JAQUELINE RPA-C Unavailable Unavailable GIORDANO, DAISY JAQUELINE RPA-C Unavailable Unavailable GIORDANO, DAISY JAQUELINE RPA-C Unavailable Unavailable GIORDANO, DAISY JAQUELINE RPA-C Unavailable Unavailable GIORDANO, DAISY JAQUELINE RPA-C Unavailable Unavailable GIORDANO, DAISY JAQUELINE RPA-C Unavailable Unavailable GIORDANO, DAISY JAQUELINE RPA-C Unavailable Unavailable GIORDANO, DAISY JAQUELINE RPA-C Unavailable Unavailable GIORDANO, DAISY JAQUELINE RPA-C Unavailable Unavailable GIORDANO, DAISY JAQUELINE RPA-C Unavailable Unavailable GIORDANO, DAISY JAQUELINE RPA-C Unavailable Unavailable GIORDANO, DAISY JAQUELINE RPA-C Unavailable Unavailable GIORDANO, DAISY JAQUELINE RPA-C Unavailable Unavailable GIORDANO, DAISY JAQUELINE RPA-C Unavailable Unavailable GIORDANO, DAISY JAQUELINE RPA-C Unavailable Unavailable GIORDANO, DAISY JAQUELINE RPA-C Unavailable Unavailable GIORDANO, DAISY JAQUELINE RPA-C Unavailable Unavailable GIORDANO, DAISY JAQUELINE RPA-C Unavailable Unavailable GIORDANO, DAISY JAQUELINE RPA-C Unavailable Unavailable GIORDANO, DAISY JAQUELINE RPA-C Unavailable Unavailable GIORDANO, DAISY JAQUELINE RPA-C Unavailable Unavailable GIORDANO, DAISY JAQUELINE RPA-C Unavailable Unavailable GIORDANO, DAISY JAQUELINE RPA-C Unavailable Unavailable GIORDANO, DAISY JAQUELINE RPA-C Unavailable Unavailable GIORDANO, DAISY JAQUELINE RPA-C Unavailable Unavailable GIORDANO, DAISY JAQUELINE RPA-C Unavailable Unavailable GIORDANO, DAISY JAQUELINE RPA-C Unavailable Unavailable GIORDANO, DAISY JAQUELINE RPA-C Unavailable Unavailable GIORDANO, DAISY JAQUELINE RPA-C Unavailable Unavailable GIORDANO, DAISY JAQUELINE RPA-C Unavailable Unavailable GIORDANO, DAISY JAQUELINE RPA-C Unavailable Unavailable GIORDANO, DAISY JAQUELINE RPA-C Unavailable Unavailable GIORDANO, DAISY JAQUELINE RPA-C Unavailable Unavailable Rah Izaguirre MD Unavailable Unavailable Rah Izaguirre MD Unavailable Unavailable Rah Izaguirre MD Unavailable Unavailable Rah Izaguirre MD Unavailable Unavailable Rah Izaguirre MD Unavailable Unavailable Rah Izaguirre MD Unavailable Unavailable Rah Izaguirre MD Unavailable Unavailable Rah Izaguirre MD Unavailable Unavailable Bean Adkins CATEGORY SPECIALIST Unavailable Unavailable Bean Adkins CATEGORY SPECIALIST Unavailable Unavailable Bean Adkins CATEGORY SPECIALIST Unavailable Unavailable Bean Adkins CATEGORY SPECIALIST Unavailable Unavailable Bean Adkins CATEGORY SPECIALIST Unavailable Unavailable Bean Adkins CATEGORY SPECIALIST Unavailable Unavailable Bean Adkins CATEGORY SPECIALIST Unavailable Unavailable Bean Adkins CATEGORY SPECIALIST Unavailable Unavailable VolBean martinez CATEGORY SPECIALIST Unavailable Unavailable Volcko, M Lila CATEGORY SPECIALIST Unavailable Unavailable Volcko, M Lila CATEGORY SPECIALIST Unavailable Unavailable Volcko, M Lila CATEGORY SPECIALIST Unavailable Unavailable Volcko, M Lila CATEGORY SPECIALIST Unavailable Unavailable Volcko, M Lila CATEGORY SPECIALIST Unavailable Unavailable Volcko, M Lila CATEGORY SPECIALIST Unavailable Unavailable Volcko, M Lila CATEGORY SPECIALIST Unavailable Unavailable Volcko, M Illa CATEGORY SPECIALIST Unavailable Unavailable Volcko, M Lila CATEGORY SPECIALIST Unavailable Unavailable Volcko, M Lila CATEGORY SPECIALIST Unavailable Unavailable Volcko, M Lila CATEGORY SPECIALIST Unavailable Unavailable Volcko, M Lila CATEGORY SPECIALIST Unavailable Unavailable Volcko, M Lila CATEGORY SPECIALIST Unavailable Unavailable Volcko, M Lila CATEGORY SPECIALIST Unavailable Unavailable Volcko, M Lila CATEGORY SPECIALIST Unavailable Unavailable Volcko, M Lila CATEGORY SPECIALIST Unavailable Unavailable Volcko, M Lila CATEGORY SPECIALIST Unavailable Unavailable Volcko, M Lila CATEGORY SPECIALIST Unavailable Unavailable Volcko, M Lila CATEGORY SPECIALIST Unavailable Unavailable Volcko, M Lila CATEGORY SPECIALIST Unavailable Unavailable Volcko, M Lila CATEGORY SPECIALIST Unavailable Unavailable Volcko, M Lila CATEGORY SPECIALIST Unavailable Unavailable Volcko, M Lila CATEGORY SPECIALIST Unavailable Unavailable Volcko, M Lila CATEGORY SPECIALIST Unavailable Unavailable Volcko, M Lila CATEGORY SPECIALIST Unavailable Unavailable Volcko, M Lila CATEGORY SPECIALIST Unavailable Unavailable Volcko, M Lila CATEGORY SPECIALIST Unavailable Unavailable Volcko, M Lila CATEGORY SPECIALIST Unavailable Unavailable Chance Mcdonough MD Unavailable Unavailable Chance Mcdonough MD Unavailable Unavailable Chance Mcdonough MD Unavailable Unavailable Chance Mcdonough MD Unavailable Unavailable Chance Mcdonough MD Unavailable Unavailable Chance Mcdonough MD Unavailable Unavailable Chance Mcdonough MD Unavailable Unavailable Chance Mcdonough MD Unavailable Unavailable Chance Mcdonough MD Unavailable Unavailable Chance Mcdonough MD Unavailable Unavailable Chance Mcdonough MD Unavailable Unavailable Chance Mcdonough MD Unavailable Unavailable Chance Mcdonough MD Unavailable Unavailable Chance Mcdonough MD Unavailable Unavailable Chance Mcdonough MD Unavailable Unavailable Chance Mcdonough MD Unavailable Unavailable Chance Mcdonough MD Unavailable Unavailable Chance Mcdonough MD Unavailable Unavailable Chance Mcdonough MD Unavailable Unavailable Chance Mcdonough MD Unavailable Unavailable Chance Mcdonough MD Unavailable Unavailable Chance Mcdonough MD Unavailable Unavailable Chance Mcdonough MD Unavailable Unavailable Chance Mcdonough MD Unavailable Unavailable Chance Mcdonough MD Unavailable Unavailable Chance Mcdonough MD Unavailable Unavailable Chance Mcdonough MD Unavailable Unavailable Chance Mcdonough MD Unavailable Unavailable Chance Mcdonough MD Unavailable Unavailable Chance Mcdonough MD Unavailable Unavailable Chance Mcdonough MD Unavailable Unavailable Chance Mcdonough MD Unavailable Unavailable Chance Mcdonough MD Unavailable Unavailable Chance Mcdonough MD Unavailable Unavailable Chance Mcdonough MD Unavailable Unavailable Chance Mcdonough MD Unavailable Unavailable Chance Mcdonough MD Unavailable Unavailable Chance Mcdonough MD Unavailable Unavailable Chance Mcdonough MD Unavailable Unavailable Chance Mcdonough MD Unavailable Unavailable Chance Mcdonough MD Unavailable Unavailable Chance Mcdonough MD Unavailable Unavailable McdonoughChance MD Unavailable Unavailable Chance Mcdonough MD Unavailable Unavailable McdonoughChance MD Unavailable Unavailable Chance Mcdonough MD Unavailable Unavailable Chance Mcdonough MD Unavailable Unavailable Chance Mcdonough MD Unavailable Unavailable Chance Mcdonough MD Unavailable Unavailable Chance Mcdonough MD Unavailable Unavailable Chance Mcdonough MD Unavailable Unavailable Chance Mcdonough MD Unavailable Unavailable Chance Mcdonough MD Unavailable Unavailable Chance Mcdonough MD Unavailable Unavailable Chance Mcdonough MD Unavailable Unavailable Chance Mcdonough MD Unavailable Unavailable Chance Mcdonough MD Unavailable Unavailable Chance Mcdonough MD Unavailable Unavailable Chance Mcdonough MD Unavailable Unavailable Chance Mcdonough MD Unavailable Unavailable Chance Mcdonough MD Unavailable Unavailable Chance Mcdonough MD Unavailable Unavailable Chance Mcdonough MD Unavailable Unavailable Chance Mcdonough MD Unavailable Unavailable Chance Mcdonough MD Unavailable Unavailable Chance Mcdonough MD Unavailable Unavailable Chance Mcdonough MD Unavailable Unavailable Chance Mcdonough MD Unavailable Unavailable Chance Mcdonough MD Unavailable Unavailable Chance Mcdonough MD Unavailable Unavailable Chance Mcdonough MD Unavailable Unavailable Chance Mcdonough MD Unavailable Unavailable Chance Mcdonough MD Unavailable Unavailable Chance Mcdonough MD Unavailable Unavailable Chance Mcdnoough MD Unavailable Unavailable Chance Mcdonough MD Unavailable Unavailable Chance Mcdonough MD Unavailable Unavailable Chance Mcdonough MD Unavailable Unavailable Chance Mcdonough MD Unavailable Unavailable Chance Mcdonough MD Unavailable Unavailable Chance Mcdonough MD Unavailable Unavailable Chance Mcdonough MD Unavailable Unavailable Chance Mcdonough MD Unavailable Unavailable Chance Mcdonough MD Unavailable Unavailable Chance Mcdonough MD Unavailable Unavailable Chance Mcdonough MD Unavailable Unavailable Chance Mcdonough MD Unavailable Unavailable Chance Mcdonough MD Unavailable Unavailable Chance Mcdonough MD Unavailable Unavailable Aureliano, K Lillian PMH-CATEGORY SPECIALIST Unavailable Unavailable Perkins, K Lillian PMH-CATEGORY SPECIALIST Unavailable Unavailable Aureliano, K Lillian PMH-CATEGORY SPECIALIST Unavailable Unavailable Aureliano, K Lillian PMH-CATEGORY SPECIALIST Unavailable Unavailable Perkins, K Lillian PMH-CATEGORY SPECIALIST Unavailable Unavailable Perkins, K Lillian PMH-CATEGORY SPECIALIST Unavailable Unavailable Franco TURK MD Unavailable Unavailable Franco TURK MD Unavailable Unavailable Franco TURK MD Unavailable Unavailable Franco TURK MD Unavailable Unavailable Franco TURK MD Unavailable Unavailable Franco TURK MD Unavailable Unavailable Franco TURK MD Unavailable Unavailable Franco TURK MD Unavailable Unavailable Franco TURK MD Unavailable Unavailable Franco TURK MD Unavailable Unavailable Franco TURK MD Unavailable Unavailable Franco TURK MD Unavailable Unavailable Franco TURK MD Unavailable Unavailable Franco TURK MD Unavailable Unavailable Franco TURK MD Unavailable Unavailable Franco TURK MD Unavailable Unavailable Franco TURK MD Unavailable Unavailable Franco TURK MD Unavailable Unavailable Franco TURK MD Unavailable Unavailable Franco TURK MD Unavailable Unavailable Franco TURK MD Unavailable Unavailable Franco TURK MD Unavailable Unavailable Franco TURK MD Unavailable Unavailable Franco TURK MD Unavailable Unavailable Franco TURK MD Unavailable Unavailable Franco TURK MD Unavailable Unavailable Franco TURK MD Unavailable Unavailable Franco TURK MD Unavailable Unavailable Franco TURK MD Unavailable Unavailable Franco TURK MD Unavailable Unavailable Franco TURK MD Unavailable Unavailable Franco TURK MD Unavailable Unavailable Franco TURK MD Unavailable Unavailable Franco TURK MD Unavailable Unavailable Franco TURK MD Unavailable Unavailable Franco TURK MD Unavailable Unavailable Franco TURK MD Unavailable Unavailable Franco TURK MD Unavailable Unavailable Franco TURK MD Unavailable Unavailable Franco TURK MD Unavailable Unavailable Franco TURK MD Unavailable Unavailable Franco TURK MD Unavailable Unavailable Franco TURK MD Unavailable Unavailable Franco TURK MD Unavailable Unavailable Franco TURK MD Unavailable Unavailable Franco TURK MD Unavailable Unavailable Franco TURK MD Unavailable Unavailable Franco TURK MD Unavailable Unavailable Franco TURK MD Unavailable Unavailable Franco TURK MD Unavailable Unavailable Franco TURK MD Unavailable Unavailable Franco TURK MD Unavailable Unavailable Franco TURK MD Unavailable Unavailable Franco TURK MD Unavailable Unavailable Franco TURK MD Unavailable Unavailable ENID, Franco MUSA MD Unavailable Unavailable ENID, Franco MUSA MD Unavailable Unavailable ENID, Franco MUSA MD Unavailable Unavailable ENID, Franco MUSA MD Unavailable Unavailable ENID, Franco MUSA MD Unavailable Unavailable ENID, Franco MUSA MD Unavailable Unavailable ENID, Franco MUSA MD Unavailable Unavailable ENID, Franco MUSA MD Unavailable Unavailable ENID, Franco MUSA MD Unavailable Unavailable ENID, Franco MUSA MD Unavailable Unavailable ENID, Franco MUSA MD Unavailable Unavailable ENID, Franco MUSA MD Unavailable Unavailable ENID, Franco MUSA MD Unavailable Unavailable ENID, Franco MUSA MD Unavailable Unavailable ENID, Franco MUSA MD Unavailable Unavailable ENID, Franco MUSA MD Unavailable Unavailable ENID, Franco MUSA MD Unavailable Unavailable ENID, Franco MUSA MD Unavailable Unavailable ENID, Franco MUSA MD Unavailable Unavailable ENID, Franco MUSA MD Unavailable Unavailable ENID, Franco MUSA MD Unavailable Unavailable ENID, Franco MUSA MD Unavailable Unavailable ENID, Franco MUSA MD Unavailable Unavailable ENID, Franco MUSA MD Unavailable Unavailable ENID, Franco MUSA MD Unavailable Unavailable ENID, Franco MUSA MD Unavailable Unavailable ENID, Franco MUSA MD Unavailable Unavailable ENID, Franco MUSA MD Unavailable Unavailable Charlebois, A Mallory RPA C Unavailable Unavailable Charlebois, A Mallory RPA C Unavailable Unavailable Charlebois, A Mallory RPA C Unavailable Unavailable Charlebois, A Mallory RPA C Unavailable Unavailable Charlebois, A Mallory RPA C Unavailable Unavailable Charlebois, A Mallory RPA C Unavailable Unavailable Charlebois, A Mallory RPA C Unavailable Unavailable Charlebois, A Mallory RPA C Unavailable Unavailable Charlebois, A Mallory RPA C Unavailable Unavailable Charlebois, A Mallory RPA C Unavailable Unavailable Charlebois, A Mallory RPA C Unavailable Unavailable Charlebois, A Mallory RPA C Unavailable Unavailable Charlebois, A Mallory RPA C Unavailable Unavailable Charlebois, A Mallory RPA C Unavailable Unavailable Charlebois, A Mallory RPA C Unavailable Unavailable Charlebois, A Mallory RPA C Unavailable Unavailable Charlebois, A Mallory RPA C Unavailable Unavailable Charlebois, A Mallory RPA C Unavailable Unavailable Charlebois, A Mallory RPA C Unavailable Unavailable Charlebois, A Mallory RPA C Unavailable Unavailable Charlebois, A Mallory RPA C Unavailable Unavailable Charlebois, A Mallory RPA C Unavailable Unavailable Charlebois, A Mallory RPA C Unavailable Unavailable Charlebois, A Mallory RPA C Unavailable Unavailable Charlebois, A Mallory RPA C Unavailable Unavailable Charlebois, A Mallory RPA C Unavailable Unavailable Charlebois, A Mallory RPA C Unavailable Unavailable Charlebois, A Mallory RPA C Unavailable Unavailable Charlebois, A Mallory RPA C Unavailable Unavailable Charlebois, A Mallory RPA C Unavailable Unavailable Charlebois, A Mallory RPA C Unavailable Unavailable Moses Choe MD Unavailable Unavailable Дмитрий, Moses Ruiz MD Unavailable Unavailable Choe, Moses Ruiz MD Unavailable Unavailable Choe, Moses Ruiz MD Unavailable Unavailable Choe, Moses Ruiz MD Unavailable Unavailable Choe, Moses Ruiz MD Unavailable Unavailable Choe, Moses Ruiz MD Unavailable Unavailable Choe, Moses Ruiz MD Unavailable Unavailable Moses Choe MD Unavailable Unavailable Moses Choe MD Unavailable Unavailable Moses Choe MD Unavailable Unavailable Moses Choe MD Unavailable Unavailable Moses Choe MD Unavailable Unavailable Moses Choe MD Unavailable Unavailable Moses Choe MD Unavailable Unavailable Moses Choe MD Unavailable Unavailable Choe, Moses Ruiz MD Unavailable Unavailable ChoeMoses MD Unavailable Unavailable Moses Choe MD Unavailable Unavailable Moses Choe MD Unavailable Unavailable Moses Choe MD Unavailable Unavailable Moses Choe MD Unavailable Unavailable Choe, Moses Ruiz MD Unavailable Unavailable ChoeMoses MD Unavailable Unavailable Moses Choe MD Unavailable Unavailable Moses Choe MD Unavailable Unavailable Moses Choe MD Unavailable Unavailable Moses Choe MD Unavailable Unavailable Moses Choe MD Unavailable Unavailable Moses Choe MD Unavailable Unavailable Moses Choe MD Unavailable Unavailable Moses Choe MD Unavailable Unavailable Moses Choe MD Unavailable Unavailable Moses Choe MD Unavailable Unavailable Moses Choe MD Unavailable Unavailable Moses Choe MD Unavailable Unavailable Moses Choe MD Unavailable Unavailable Moses Choe MD Unavailable Unavailable Moses Choe MD Unavailable Unavailable Moses Choe MD Unavailable Unavailable Moses Choe MD Unavailable Unavailable Moses Choe MD Unavailable Unavailable Moses Choe MD Unavailable Unavailable Moses Choe MD Unavailable Unavailable Moses Choe MD Unavailable Unavailable Moses Choe MD Unavailable Unavailable Moses Choe MD Unavailable Unavailable Moses Choe MD Unavailable Unavailable Moses Choe MD Unavailable Unavailable Moses Choe MD Unavailable Unavailable Moses Choe MD Unavailable Unavailable [facility], RFROST GIORDANO JAMIR PARSONS Unavailable Unavailable Urbano Larios Unavailable Re-disclosure Warning The records that you are about to access may contain information from federally-assisted alcohol or drug abuse programs. If such information is present, then the following federally mandated warning applies: This information has been disclosed to you from records protected by federal confidentiality rules (42 CFR part 2). The federal rules prohibit you from making any further disclosure of this information unless further disclosure is expressly permitted by the written consent of the person to whom it pertains or as otherwise permitted by 42 CFR part 2. A general authorization for the release of medical or other information is NOT sufficient for this purpose. The Federal rules restrict any use of the information to criminally investigate or prosecute any alcohol or drug abuse patient.The records that you are about to access may contain highly sensitive health information, the redisclosure of which is protected by Article 27-F of the [facility] Public Health law. If you continue you may have access to information: Regarding HIV / AIDS; Provided by facilities licensed or operated by the [facility] Office of Mental Health; or Provided by the [facility] Office for People With Developmental Disabilities. If such information is present, then the following [facility] mandated warning applies: This information has been disclosed to you from confidential records which are protected by state law. State law prohibits you from making any further disclosure of this information without the specific written consent of the person to whom it pertains, or as otherwise permitted by law. Any unauthorized further disclosure in violation of state law may result in a fine or mcc sentence or both. A general authorization for the release of medical or other information is NOT sufficient authorization for further disc losure. Allergies and Adverse Reactions Type Description Substance Reaction Status Data Source(s ) Propensity to adverse reactions to substance penicillin v po tassium Penicillin V Potassium 250 MG Oral Tablet anaphylaxis Active [facility] ( [facility]) Allergy to substance Allergy to substance Doxycycline [place] ([facility]) Allergy to substance Allergy to substance Doxycycline [place] ([facility]) Allergy to substance Allergy to substance Doxycycline [place] ([facility]) Allergy to substance Allergy to substance Doxycycline [place] ([facility]) Allergy to substance Allergy to substance Doxycycline [place] ([facility]) Allergy to substance Allergy to substance Doxycycline [place] ([facility]) Allergy to substance Allergy to substance Doxycycline [place] ([facility]) Allergy to substance Allergy to substance Doxycycline [place] ([facility]) Allergy to substance Allergy to substance Doxycycline [place] ([facility]) Allergy to substance Allergy to substance Doxycycline [place] ([facility]) Allergy to substance Allergy to substance Doxycycline [place] ([facility]) Drug allergy DOXYCYCLINE DOXYCYCLINE generalized rash [facility] Family History Family Member Name Family Member Gender Family Member Status Date o f Status Description Data Source(s) Unknown Unknown Problem [facility] ([facility]) Encounters Encounter Providers Location Date Indications Data Source(s ) Constantin Izaguirre MD: [address] [place] [address], Ph. Attender: Constantin Izaguirre MD [facility] Medical 11/08/2020 12:00:00 AM EST [place] ([facility]) Abbi Snyder LMSW: [address] [place] [address], Ph. Attender: Abbi Snyder [facility] Medical 10/26/2020 12:00:00 AM EST [place] ([facility]) Abbi Snyder LMSW: [address] [place] [address], Ph. Attender: Abbi Snyder [facility] Medical 10/26/2020 12:00:00 AM EST [place] ([facility]) Office Visit Attender: Kaushik Powell/Serena/Zohaib/Gris lew 10/11/2020 07:45:00 AM EST [place] ([facility]) Abbi Snyder LMSW: [address] [place] [address], Ph. Attender: Abbi Snyder [facility] Medical 09/30/2020 12:00:00 AM EST [place] ([facility]) Abbi Snyder LMSW: [address], [place] [address], Ph. Attender: Abbi Snyder [facility] Medical 09/30/2020 12:00:00 AM EST [place] ([facility]) Abbi Snyder, [facility]: [address], [place] [address], Ph. Attender: Abbi Snyder [facility] Medical 09/30/2020 12:00:00 AM EST [place] ([facility]) Office Visit Attender: Kaushik Powell/Serena/Zohaib/Gris indl 09/27/2020 08:15:00 AM EST [facility] ([facility]) Pa Mcdonough MD: [address] [place] [address], Ph. Attender: Pa Mcdonough MD [facility] Medical 09/23/2020 12:00:00 AM EST [place] ([facility]) Pa Mcdonough MD: [address] [place] [address], Ph. Attender: Pa Mcdonough MD [facility] Medical 09/23/2020 12:00:00 AM EST [place] ([facility]) Pa Mcdonough MD: [address] [place] [address], Ph. Attender: Pa Mcdonough MD [facility] Medical 09/23/2020 12:00:00 AM EST [place] ([facility]) Pa Mcdonough MD: [address] [place] [address], Ph. Attender: Pa Mcdonough MD [facility] Medical 09/23/2020 12:00:00 AM EST [place] ([facility]) Abbi Fariagerardo, [facility]: [address], [place] [address], Ph. Attender: Abbi Snyder [facility] Medical 09/14/2020 12:00:00 AM EST [place] ([facility]) Abbi Snyder, [facility]: [address], [place] [address], Ph. Attender: Abbi Snyder [facility] Medical 09/14/2020 12:00:00 AM EST [place] ([facility]) Abbi Snyder, [employer]: [address], [place] [address], Ph. Attender: Abbi Snyder [facility] Medical 09/14/2020 12:00:00 AM EST [place] ([facility]) Abbi Snyder, [employer]: [address], [place] [address], Ph. Attender: Abbi Snyder [facility] Medical 09/14/2020 12:00:00 AM EST [place] ([facility]) Abbi Snyder, [facility]: [address], [place] [address], Ph. Attender: Abbi Snyder [facility] Medical 09/14/2020 12:00:00 AM EST [place] ([facility]) Abbi Snyder, [facility]: [address], [place] [address], Ph. Attender: Abbi Snyder [facility] Medical 09/01/2020 12:00:00 AM EST [place] ([facility]) Abbi Snyder, [facility]: [address], [place] [address], Ph. Attender: Abbi Snyder [facility] Medical 09/01/2020 12:00:00 AM EST [place] ([facility]) Abbi Fariagerardo, [facility]: [address] [place] [address], Ph. Attender: Abbi Snyder [facility] Medical 09/01/2020 12:00:00 AM EST [place] ([facility]) Abbi Snyder, [facility]: [address] [place] [address], Ph. Attender: Abbi Snyder [facility] Medical 09/01/2020 12:00:00 AM EST [place] ([facility]) [facility] [address] [place] [address], Ph. Attender: Abbi Snyder [facility] Medical 09/01/2020 12:00:00 AM EST [place] ([facility]) [facility] [address] [place] [address], Ph. Attender: Abbi Snyder [facility] Medical 09/01/2020 12:00:00 AM EST [place] ([facility]) Outpatient Attender: Mallory Powell/Serena/Salvador wu/Saundra 08/26/2020 08:30:00 AM EST [facility] ([facility], ) [facility]: [address] [place] [address], Ph. Attender: Abbi Snyder [facility] Medical 08/26/2020 12:00:00 AM EST [place] ([facility]) Abbi Fariagerardo [facility]: [address] [place] [address], Ph. Attender: Abbi Snyder [facility] Medical 08/26/2020 12:00:00 AM EST [place] ([facility]) Abbi Gianagerardo [facility]: [address] [place] [address], Ph. Attender: Abbi Snyder [facility] Medical 08/26/2020 12:00:00 AM EST [place] ([facility]) Abbi Snyder, [facility]: [address] [place] [address], Ph. Attender: Abbi Snyder [facility] Medical 08/26/2020 12:00:00 AM EST [place] ([facility]) Abbi Snyder, [facility]: [address] [place] [address], Ph. Attender: Abbi Snyder [facility] Medical 08/26/2020 12:00:00 AM EST [place] ([facility]) [facility] [address] [place] [address], Ph. Attender: Abbi Snyder [facility] Medical 08/26/2020 12:00:00 AM EST [place] ([facility]) [facility] [address] [place] [address], Ph. Attender: Abbi Snyder [facility] Medical 08/26/2020 12:00:00 AM EST [place] ([facility]) Outpatient Attender: Kaushik Powell/Serena/Zohaib/Gris indl 08/19/2020 09:45:00 AM EST [facility] ([facility]) Pa Mcdonough MD: [address] [place] [address], Ph. Attender: Pa Mcdonough MD [facility] Medical 08/18/2020 12:00:00 AM EST [place] ([facility]) Abbi Snyder, [facility]: [address] [place] [address], Ph. Attender: Abbi Snyder [facility] Medical 08/18/2020 12:00:00 AM EST [place] ([facility]) Pa Mcdonough MD: [address] [place] [address], Ph. Attender: Pa Mcdonough MD [facility] Medical 08/18/2020 12:00:00 AM EST [place] ([facility]) Abbi Snyder [facility]: [address] [place] [address], Ph. Attender: Abbi Snyder [facility] Medical 08/18/2020 12:00:00 AM EST [place] ([facility]) Pa Mcdonough MD: [address] [place] [address], Ph. Attender: Pa Mcdonough MD [facility] Medical 08/18/2020 12:00:00 AM EST [place] ([facility]) Abbi Snyder [facility]: [address] [place] [address], Ph. Attender: Abbi Snyder [facility] Medical 08/18/2020 12:00:00 AM EST [place] ([facility]) Pa Mcdonough MD: [address] [place] [address], Ph. Attender: Pa Mcdonough MD [facility] Medical 08/18/2020 12:00:00 AM EST [place] ([facility]) Abbi Snyder [facility]: [address] [place] [address], Ph. Attender: Abbi Snyder [facility] Medical 08/18/2020 12:00:00 AM EST [place] ([facility]) Pa Mcdonough MD: [address] [place] [address], Ph. Attender: Pa Mcdonough MD [facility] Medical 08/18/2020 12:00:00 AM EST [place] ([facility]) Abbiиван Fariagerardo [facility]: [address] [place] [address], Ph. Attender: Abbi Snyder [facility] Medical 08/18/2020 12:00:00 AM EST [place] ([facility]) Pa Mcdonough MD: [address] [place] [address], Ph. Attender: Pa Mcdonough MD [facility] Medical 08/18/2020 12:00:00 AM EST [place] ([facility]) Abbi Snyder [facility]: [address] [place] [address], Ph. Attender: Abbi Snyder [facility] Medical 08/18/2020 12:00:00 AM EST [place] ([facility]) Pa Mcdonough MD: [address] [place] [address], Ph. Attender: Pa Mcdonough MD [facility] Medical 08/18/2020 12:00:00 AM EST [place] ([facility]) Abbi Snyder [facility]: [address] [place] [address], Ph. Attender: Abbi Snyder [facility] Medical 08/18/2020 12:00:00 AM EST [place] ([facility]) Pa Mcdonough MD: [address] [place] [address], Ph. Attender: Pa Mcdonough MD [facility] Medical 08/18/2020 12:00:00 AM EST [place] ([facility]) Abbi Snyder LMSW: [address] [place] [address], Ph. Attender: Abbi Synder [facility] Medical 08/18/2020 12:00:00 AM EST [place] ([facility]) Pa Mcdonough MD: [address] [place] [address], Ph. Attender: Pa Mcdonough MD [facility] Medical 08/18/2020 12:00:00 AM EST [place] ([facility]) Abbi Gianagerardo, [facility]: [address] [place] [address], Ph. Attender: Abbi Gianagerardo [facility] Medical 08/18/2020 12:00:00 AM EST [place] ([facility]) Outpatient Attender: Pa Mcdonough MD 08/06/2020 12:30:00 PM EDT [facility] Outpatient Attender: Joseph Powell/Serena/Zohaib/Eamon velasco 08/06/2020 10:00:00 AM EDT [facility] ([facility]) Abbi Gianagerardo [facility]: [address] [place] [address], Ph. Attender: Abbiиван Fariagerardo [facility] Medical 08/06/2020 12:00:00 AM EDT [place] ([facility]) Abbi GianaDEMETRA carrilloSW: [address] [place] [address], Ph. Attender: Abbi Gianagerardo [facility] Medical 08/06/2020 12:00:00 AM EDT [place] ([facility]) Abbi Snyder LMSW: [address] [place] [address], Ph. Attender: Abbi Gianagerardo [facility] Medical 08/06/2020 12:00:00 AM EDT [place] ([facility]) Abbi Snyder LMSW: [address], [place] [address], Ph. Attender: Abbi Snyder [facility] Medical 08/06/2020 12:00:00 AM EDT [place] ([facility]) Abbi Snyder, [employer]: [address], [place] [address], Ph. Attender: Abbi Snyder [facility] Medical 08/06/2020 12:00:00 AM EDT [place] ([facility]) Abbi Snyder, [facility]: [address], [place] [address], Ph. Attender: Abbi Snyder [facility] Medical 08/06/2020 12:00:00 AM EDT [facility]) Abbi Snyder, [facility]: [address] [place] [address], Ph. Attender: bAbi Snyder [facility] Medical 08/06/2020 12:00:00 AM EDT [facility]) Abbi Snyder, [facility]: [address], [place] [address], Ph. Attender: Abbi Snyder [facility] Medical 08/06/2020 12:00:00 AM EDT [place] ([facility]) Abbi Snyder, [facility]: [address], [place] [address], Ph. Attender: Abbi Snyder [facility] Medical 08/06/2020 12:00:00 AM EDT [place] ([facility]) Abbi Snyder, [facility]: [address], [place] [address], Ph. Attender: Abbi Snyder [facility] Medical 08/06/2020 12:00:00 AM EDT [place] ([facility]) Abbi Snyder, [facility]: [address], [place] [address], Ph. Attender: Abbi Snyder [facility] Medical 08/06/2020 12:00:00 AM EDT [facility]) Abbi Snyder, [facility]: [address], [place] [address], Ph. Attender: Abbi Snyder [facility] Medical 08/04/2020 12:00:00 AM EDT [facility]) Abbi Snyder, [facility]: [address], [place] [address], Ph. Attender: Abbi Snyder [facility] Medical 08/04/2020 12:00:00 AM EDT [facility]) Abbi Snyder, [facility]: [address], [place] [address], Ph. Attender: Abbi Snyder [facility] Medical 08/04/2020 12:00:00 AM EDT [place] ([facility]) Abbi Snyder, [facility]: [address], [place] [address], Ph. Attender: Abbi Snyder [facility] Medical 08/04/2020 12:00:00 AM EDT [place] ([facility]) Abbi Snyder, [facility]: [address], [place] [address], Ph. Attender: Abbi Snyder [facility] [facility] Medical 08/04/2020 12:00:00 AM EDT [facility]) Abbi Fariagerardo, [facility]: [address], [place] [address], Ph. Attender: Abbi Snyder [facility] Medical 08/04/2020 12:00:00 AM EDT [place] ([facility]) Abbi Snyder, [facility]: [address] [place] [address], Ph. Attender: Abbi Snyder [facility] Medical 08/04/2020 12:00:00 AM EDT [place] ([facility]) Abbi Snyder, [facility]: [address] [place] [address], Ph. Attender: Abbi Snyder [facility] Medical 08/04/2020 12:00:00 AM EDT [place] ([facility]) Abbi Snyder, [facility]: [address] [place] [address], Ph. Attender: Abbi Snyder [facility] Medical 08/04/2020 12:00:00 AM EDT [place] ([facility]) Abbi Snyder, [facility]: [address] [place] [address], Ph. Attender: Abbi Snyder [facility] Medical 08/04/2020 12:00:00 AM EDT [place] ([facility]) [facility] [address] [place] [address], Ph. Attender: Abbi Snyder [facility] Medical 08/04/2020 12:00:00 AM EDT [place] ([facility]) Outpatient Attender: Pa Mcdonough MD FP 07/26/2020 01:08:01 PM EDT [facility] Outpatient Attender: Pa Mcdonough MD FP 07/26/2020 08:47:01 AM EDT [facility] Outpatient Attender: Joseph Powell/Serena/Zohaib/Eamon velasco 07/23/2020 10:00:00 AM EDT [place] ([facility], ) Outpatient Attender: Pa Mcdonough MD FP 07/22/2020 03:40:03 PM EDT [facility] Outpatient Attender: Pa Mcdonough MD FP 07/22/2020 03:39:02 PM EDT [facility] Outpatient Attender: Pa Mcdonough MD FP 07/20/2020 12:05:08 PM EDT [facility] Outpatient Attender: Pa Mcdonough MD FP 07/12/2020 09:05:07 AM EDT [facility] Outpatient Attender: Pa Mcdonough MD FP 07/12/2020 09:05:05 AM EDT [facility] Outpatient Attender: Pa Mcdonough MD FP 07/12/2020 08:18:04 AM EDT [facility] Outpatient Attender: Pa Mcdonough MD FP 07/12/2020 08:18:02 AM EDT [facility] Outpatient Attender: Pa Mcdonough MD FP 07/07/2020 10:23:01 AM EDT [facility] Outpatient Attender: Pa Mcdonough MD FP 06/29/2020 09:48:02 AM EDT [facility] Outpatient Attender: Pa Mcdonough MD FP 06/25/2020 11:11:02 AM EDT [facility] Outpatient Attender: Pa Mcdonough MD FP 06/25/2020 08:21:01 AM EDT [facility] Outpatient Attender: Pa Mcdonough MD FP 06/23/2020 09:54:00 AM EDT [facility] Outpatient Attender: Pa Mcdonough MD FP 06/16/2020 08:01:00 AM EDT [facility] Outpatient Attender: Pa Mcdonough MD FP 06/11/2020 07:33:01 AM EDT [facility] Outpatient Attender: Pa Mcdonough MD FP 06/07/2020 10:03:00 AM EDT [facility] Outpatient Attender: Pa Mcdonough MD FP 06/03/2020 05:39:00 PM EDT [facility] Outpatient Attender: Pa Mcdonough MD FP 06/03/2020 12:03:01 PM EDT [facility] Outpatient Attender: Pa Mcdonough MD FP 06/03/2020 09:02:00 AM EDT [facility] Outpatient Attender: Pa Mcdonough MD FP 05/28/2020 12:23:00 PM EDT [facility] Outpatient Attender: Pa Mcdonough MD FP 05/27/2020 08:58:01 AM EDT [facility] Outpatient Attender: Pa Mcdonough MD FP 05/26/2020 11:15:01 AM EDT [facility] Outpatient Attender: Pa Mcdonough MD FP 05/26/2020 10:48:00 AM EDT [facility] Outpatient Attender: Mallory Nicholsonxocihtlpatricio KRZYSZTOF Powell/Serena/Salvador wu/Saundra 05/26/2020 09:00:00 AM EDT [facility] ([facility] ) Outpatient Attender: Pa Mcdonough MD FP 05/25/2020 10:05:01 AM EDT [facility] Outpatient Attender: Pa Mcdonough MD FP 05/19/2020 12:02:23 AM EDT [facility] Outpatient Attender: Pa Mcdonough MD FP 05/18/2020 10:33:01 AM EDT [facility] Outpatient Attender: Pa Mcdonough MD FP 05/14/2020 08:01:14 PM EDT [facility] Outpatient Attender: Pa Mcdonough MD FP 05/14/2020 12:02:19 AM EDT [facility] Outpatient Attender: Pa Mcdonough MD FP 05/13/2020 09:13:01 AM EDT [facility] Outpatient Attender: Pa Mcdonough MD FP 05/06/2020 10:28:01 AM EDT [facility] Outpatient Attender: Pa Mcdonough MD FP 05/04/2020 09:17:00 AM EDT [facility] Outpatient Attender: Pa Mcdonough MD FP 05/04/2020 09:08:01 AM EDT [facility] Outpatient Attender: Pa Mcdonough MD FP 04/27/2020 12:07:00 PM EDT [facility] Outpatient Attender: Pa Mcdonough MD FP 04/27/2020 12:06:03 PM EDT [facility] Outpatient Attender: Pa Mcdonough MD FP 04/22/2020 02:16:01 PM EDT [facility] Outpatient Attender: Pa Mcdonough MD FP 04/22/2020 12:02:15 AM EDT [facility] Outpatient Attender: Pa Mcdonough MD FP 04/21/2020 01:23:00 PM EDT [facility] Outpatient Attender: Pa Mcdonough MD FP 04/19/2020 02:00:02 PM EDT [facility] Outpatient Attender: Pa Mcdonough MD FP 04/15/2020 10:54:00 AM EDT [facility] Outpatient Attender: Pa Mcdonough MD FP 04/13/2020 01:30:08 PM EDT [facility] Outpatient 04/13/2020 05:47:00 AM EDT [facility] Outpatient Attender: Mallory Nicholsonxochitlpatricio KRZYSZTOF Powell/Serena/Salvador wu/Reindl 04/08/2020 01:00:00 PM EDT [facility] ([facility] ) Outpatient Attender: Pa Mcdonough MD FP 04/08/2020 09:56:01 AM EDT [facility] Outpatient Attender: Pa Mcdonough MD FP 04/07/2020 08:01:03 PM EDT [facility] Outpatient Attender: Pa Mcdonough MD FP 04/07/2020 02:30:13 PM EDT [facility] Outpatient Attender: Pa Mcdonough MD FP 04/07/2020 02:30:01 PM EDT [facility] Outpatient Attender: Pa Mcdonough MD FP 04/07/2020 10:01:01 AM EDT [facility] Outpatient Attender: Pa Mcdonough MD FP 04/05/2020 05:22:02 PM EDT [facility] Outpatient Attender: Pa Mcdonough MD FP 04/05/2020 05:22:01 PM EDT [facility] Outpatient Attender: Pa Mcdonough MD FP 04/05/2020 02:23:00 PM EDT [facility] [address] [place] [address] 04/05/2020 12:00:00 AM EDT [facility] ([facility]) Outpatient Attender: Pa Mcdonough MD FP 04/02/2020 10:03:01 AM EDT [facility] Outpatient Attender: Pa Mcdonough MD FP 04/02/2020 09:52:03 AM EDT [facility] Outpatient Attender: Pa Mcdonough MD FP 04/02/2020 09:52:01 AM EDT [facility] Outpatient Attender: Pa Mcdonough MD FP 04/01/2020 03:25:00 PM EDT [facility] Outpatient Attender: Pa Mcdonough MD FP 03/31/2020 12:29:01 PM EDT [facility] Outpatient Attender: Pa Mcdonough MD FP 03/30/2020 08:01:01 PM EDT [facility] Outpatient Attender: Pa Mcdonough MD FP 03/30/2020 10:00:00 AM EDT [facility] Outpatient Attender: Pa Mcdonough MD FP 03/29/2020 02:47:01 PM EDT [facility] Outpatient Attender: Pa Mcdonough MD FP 03/24/2020 11:32:01 AM EDT [facility] Outpatient Attender: Pa Mcdonough MD FP 03/23/2020 07:45:17 PM EDT [facility] Outpatient Attender: Pa Mcdonough MD FP 03/17/2020 02:24:01 PM EDT [facility] Outpatient Attender: Pa Mcdonough MD FP 03/15/2020 02:30:06 PM EDT [facility] Outpatient Attender: Pa Mcdonough MD FP 03/15/2020 02:30:04 PM EDT [facility] Outpatient Attender: Pa Mcdonough MD FP 03/13/2020 11:13:01 AM EDT [facility] Outpatient Attender: Pa Mcdonough MD FP 03/11/2020 04:14:00 PM EDT [facility] Outpatient Attender: Pa Mcdonough MD FP 03/10/2020 09:52:00 AM EDT [facility] Outpatient Attender: Pa Mcdonough MD FP 03/09/2020 12:07:01 PM EDT [facility] Outpatient Attender: Pa Mcdonough MD FP 03/05/2020 03:22:01 PM EDT [facility] Outpatient Attender: Pa Mcdonough MD FP 03/04/2020 08:01:01 PM EDT [facility] Outpatient Attender: Pa Mcdonough MD FP 03/04/2020 12:27:00 PM EDT [facility] Outpatient Attender: Pa Mcdonough MD FP 03/03/2020 04:19:00 PM EDT [facility] Outpatient Attender: Pa Mcdonough MD FP 03/02/2020 09:32:01 AM EDT [facility] Outpatient Attender: Mallory Powell/Serena/Salvador wu/Saundra 03/01/2020 01:00:00 PM [facility]T [facility] Outpatient Attender: Pa Mcdonough MD FP 02/26/2020 08:01:04 PM EDT [facility] Outpatient Attender: Pa Mcdonough MD FP 02/24/2020 09:01:00 AM EDT [facility] Outpatient Attender: Pa Mcdonough MD 02/19/2020 08:01:02 PM EDT [facility] Outpatient Attender: Pa Mcdonough MD 02/19/2020 03:43:00 PM EDT [facility] Outpatient Attender: BUSHRA GIORDANO JAMIR MALDONADO [facility] 02/2020 07:43:02 AM EDT [facility] Outpatient Attender: JAQUELINE GIORDANO RPA-C [facility] 02/17/2020 07:43:01 AM EDT [facility] Outpatient Attender: BUSHRA GIORDANO J[facility]IR [facility] 01/15 10:11:02 AM EDT [facility] Outpatient Attender: BUSHRA GIORDANO J[facility]IR [facility] 01/15 10:10:01 AM EDT [facility] Outpatient Attender: JAQUELINE GIORDANO RPA-C [facility] 02/06/2020 02:32:00 PM EDT [facility] Outpatient 02/05/2020 05:31:00 AM EDT [facility] Outpatient 01/28/2020 05:19:00 AM EDT [facility] Outpatient Attender: BUSHRA ZENGIN [facility] 03/2020 09:48:00 AM EDT [facility] Outpatient 01/19/2020 04:58:00 AM EDT [facility] Outpatient Attender: BUSHRA GIORDANO JAMIR JAQUELNIE [facility] 10/2019 08:45:00 AM EDT [facility] Outpatient Attender: JAQUELINE GIORDANO RPA-C [facility] 01/13/2020 01:44:01 PM EDT [facility] Outpatient Attender: BUSHRA GIORDANO JAMIR PARSONS [facility] 12/15 09:25:01 AM EDT [facility] Outpatient Attender: BUSHRA GIORDANO JAMIR [facility] 12/15 09:15:02 AM EDT [facility] Outpatient Attender: aP Mcdonough MD 01/08/2020 01:37:20 PM EDT [facility] Outpatient Attender: Pa Mcdonough MD 01/06/2020 12:25:00 PM EDT [facility] Outpatient Attender: LENCHO TURK MD 01/05/2020 02:43:01 P M EDT [facility] Outpatient Attender: LENCHO TURK MD 01/05/2020 11:27:01 A [facility] Outpatient Attender: Gabriela Sevilla MD 12/17/2019 12:00:00 AM [facility] Outpatient Attender: LENCHO TURK MD 12/12/2019 01:36:02 P [facility] Outpatient Attender: LENCHO TURK MD 12/12/2019 01:36:00 P [facility] Outpatient Attender: LENCHO TURK MD 12/10/2019 10:46:01 A [facility] Outpatient Attender: LENCHO TURK MD 12/10/2019 09:58:01 A [facility] Outpatient Attender: LENCHO TURK MD 12/09/2019 10:56:01 A [facility] Outpatient Attender: LENCHO TRUK MD 12/09/2019 10:56:01 A [facility] Outpatient Attender: LENCHO TURK MD 12/08/2019 04:31:00 P [facility] Outpatient Attender: LENCHO TURK MD 12/06/2019 10:10:00 A [facility] Outpatient Attender: LENCHO TURK MD 12/04/2019 10:09:00 A [facility] Outpatient Attender: LENCHO TURK MD 11/28/2019 09:17:17 A [facility] Outpatient Attender: Evens Joiner Jr 11/26/2019 12:00:00 AM [facility] Outpatient Attender: LENCHO TURK MD 11/19/2019 03:09:00 P [facility] Outpatient Attender: LENCHO TURK MD 11/18/2019 12:16:01 P [facility] Outpatient Attender: LENCHO TURK MD 11/13/2019 11:21:39 A [facility] Extended Individual Psychotherapy - 45 min Attender: Chao Larios [facility] 11/10/2019 03:00:00 AM EST - 11/10/2019 03:00:00 AM EST [facility] Attender: Urbano Larios 11/10/2019 12:00:0 0 AM EST [facility] ([facility]) Attender: Urbano Larios 10/29/2019 12:00:0 0 AM EST [facility] ([facility]) Outpatient Attender: LENCHO BATES 10/28/2019 12:53:00 P M [facility] Extended Individual Psychotherapy - 45 min Attender: Chao Larios [facility] 10/28/2019 01:00:00 AM EST - 10/28/2019 01:00:00 AM EST [facility] Out[facility] Attender: ZEUS BATES 10/24/2019 10:05:00 AM [facility] Outpatient Attender: Mallory Powell/Serena/Salvador wu/Saundra 10/23/2019 10:00:00 AM EST [facility] ([facility] SHERON Nolasco) Outpatient Attender: Juanita BATES 10/17/2019 11: 11:59 AM [facility] Outpatient Attender: Lillian Bedoya [facility] 10/17/2019 02:30:00 AM EST - 10/17/2019 02:30:00 AM EST [facility] ([facility]) Attender: Lillian Bedoya [facility] 10/17/2019 12: 00:00 AM EST [facility] ([facility]) Outpatient Attender: ZEUS BATES 10/16/2019 04:41:01 PM [facility] Outpatient Attender: ZEUS BATES 10/16/2019 04:40:00 PM [facility] Outpatient Attender: ZEUS BATES 10/16/2019 04:39:00 PM [facility] Outpatient Attender: ZEUS BATES 10/16/2019 03:50:01 PM [facility] Outpatient Attender: Juanita BATES 10/16/2019 09: 18:02 AM [facility] Outpatient Attender: ZEUS BATES 10/16/2019 08:21:39 AM [facility] Attender: Urbano Larios 10/16/2019 12:00:0 0 AM EST [facility] ([facility]) Extended Individual Psychotherapy - 45 min Attender: Chao joshua Ric [facility] 10/14/2019 04:00:00 AM EST - 10/14/2019 04:00:00 AM EST [facility] ([facility]) Outpatient Attender: ZEUS BATES 10/13/2019 11:56:01 AM [facility] Outpatient Attender: Juanita COOLEY FP 10/09/2019 03: 05:01 PM [facility] Outpatient Attender: ZEUS SCHULZ FP 10/09/2019 09:10:00 AM [facility] Outpatient Attender: ZEUS BATES 10/06/2019 02:16:01 PM [facility] Outpatient Attender: Gabriela Sevilla MD 10/02/2019 12:00:00 AM [facility] Outpatient Attender: Gabriela Sevilla MD 10/01/2019 12:00:00 AM [facility] Outpatient Attender: Juanita COOLEY 09/29/2019 04: 00:02 PM [facility] Outpatient Attender: ZEUS BATES 09/26/2019 12:48:01 PM [facility] Outpatient Attender: Juanita COOLEY FP 09/26/2019 07: 50:59 AM [facility] Outpatient Attender: ZEUS BATES 09/26/2019 07:49:01 AM [facility] Outpatient Attender: Juanita BATES 09/25/2019 02: 57:01 PM [facility] Outpatient Attender: ZEUS BATES 09/24/2019 04:14:01 PM [facility] Outpatient Attender: ZEUS BATES 09/23/2019 11:41:00 AM [facility] Extended Individual Psychotherapy - 45 min Attender: Chao joshua [facility] 09/23/2019 09:00:00 AM EST - 09/23/2019 09:00:00 AM EST [facility] ([facility]) Attender: Urbano Larios 09/23/2019 12:00:0 0 AM EST [facility] ([facility] Outpatient Attender: ZEUS SCHULZ FP 09/20/2019 12:00:12 AM EST [facility] Outpatient Attender: Juanita COOLEY FP 09/19/2019 08: 01:12 PM EST [facility] Outpatient Attender: ZESU SCHULZ FP 09/19/2019 08:01:10 PM EST [facility] Outpatient Attender: ZEUS SCHULZ FP 09/19/2019 11:52:01 AM EST [facility] Outpatient Attender: Juanita COOLEY FP 09/19/2019 11: 52:01 AM EST [facility] Outpatient Attender: Juanita COOLEY FP 09/19/2019 11: 45:01 AM EST [facility] Outpatient Attender: Juanita OCOLEY FP 09/19/2019 11: 41:01 AM [facility] Outpatient Attender: ZEUS SCHULZ FP 09/18/2019 09:02:00 AM [facility] Outpatient Attender: ZEUS SCHULZ FP 09/18/2019 09:01:01 AM [facility] Outpatient Attender: ZEUS SCHULZ FP 09/18/2019 09:00:00 AM [facility] Outpatient Attender: ZEUS SCHULZ FP 09/15/2019 03:24:01 PM [facility] Outpatient Attender: Lila Adkins NP [facility] 09/15/2019 11:00:00 AM EST [facility] ([facility]) Functional Status Immunizations Vaccine Date Status Description Data Source(s) New in 2011. IIV4 09/23/2020 02:08:00 PM EST completed 0.5 mL [facility] ([facility]) New in 2011. IIV4 09/23/2020 02:08:00 PM EST completed 0.5 mL [place] ([facility]) New in 2011. IIV4 09/23/2020 02:08:00 PM EST completed 0.5 mL [facility] ([facility]) Medications Medication Brand Name Start Date Product Form Dose Route Admi nistrative Instructions Pharmacy Instructions Status Indications Reaction Description Data Source(s) Furosemide 40 MG Oral Tablet [Lasix] Lasix 09/27/2020 12:00:00 AM EST ORAL completed [facility] ([facility], ) Nebulizer Kit/Tubing/Mouthpiece 09/22/2020 12:00:00 AM EST active [facility] ([facility], ) Albuterol 0.83 MG/ML Inhalant Solution Albuterol Sulfate 1 11/23/2019 12:00:00 AM EST active [facility] ([facility], ) Nebulizer 09/22/2020 12:00:00 AM EST active [facility] ([facility]) Acetaminophen 325 MG / Oxycodone Hydrochloride 5 MG Or al Tablet [Percocet] Percocet 09/20/2020 12:00:00 AM EST ORAL active [facility] ([facility]) 72 HR Fentanyl 0.025 MG/HR Transdermal Patch [Duragesic] Dur agesic-25 09/20/2020 12:00:00 AM EST TOPICAL active [facility] ([facility], ) linaclotide 0.29 MG Oral Capsule [Linzess] Linzess 03/17/2020 12:00:00 AM EDT ORAL active [facility] ([facility]) Docusate Sodium 100 MG Oral Capsule [Colace] Colace 12/2019 12:00:00 AM EDT ORAL active [facility] ( [facility]) Trulance Trulance 03/01/2020 12:00:00 AM EDT ORAL compl eted [facility] ([facility]) Magnesium Hydroxide 80 MG/ML Oral Suspension Milk Of Magnesi a 03/01/2020 12:00:00 AM EDT completed [facility] ([facility]) quetiapine 400 MG Oral Tablet [Seroquel] Seroquel 10/17/2019 12 :00:00 AM EST 400 mg by mouth completed [id number] Seroquel by mouth [id number] at bedtime 30 400 mg tablet 33806 [id number] Lillian [facility] [id number] [facility] ([facility]) 24 HR venlafaxine 150 MG Extended Release Oral Capsule [Effe xor] Effexor XR 10/17/2019 12:00:00 AM EST 150 mg completed [id number] Effexor XR 10/17/2019 01/15/2020 every morning 30 150 mg capsule,extended release 24h r 33787 [id number] Lillian Bedoya [id number] [facility] ([facility]) Prazosin 1 MG Oral Capsule prazosin 10/17/2019 12:00:00 AM EST 1 mg by mouth completed [id number] prazosin by mouth [id number] 10/17/201912/2019 at bedtime 30 1 mg capsule 68203 [id number] Lillian Bedoya [id number] [facility] ([facility]) quetiapine 400 MG Oral Tablet [Seroquel] Seroquel 10/17/2019 12 :00:00 AM EST 400 mg by mouth completed [id number] Seroquel by mouth F79025 at bedtime 30 400 mg tablet 85313 233161 [id number] Lillian gibson [id number] [facility] ([facility]) quetiapine 100 MG Oral Tablet [Seroquel] Seroquel 10/17/2019 12 :00:00 AM EST 100 mg by mouth completed [id number] Seroquel by mouth [id number] 8 10/17/2019 12/16/2019 at bedtime 30 100 mg tablet 49233 077031 [id number] Francis Bedoya [id number] [facility] ([facility]) quetiapine 100 MG Oral Tablet [Seroquel] Seroquel 10/17/2019 12 :00:00 AM EST 100 mg by mouth completed [id number] Seroquel by mouth [id number] 8 10/17/2019 12/16/2019 at bedtime 30 100 mg tablet 44315 449056 [id number] Francis Bedoya [id number] [facility] ([facility]) 24 HR venlafaxine 150 MG Extended Release Oral Capsule [Effe xor] Effexor XR 10/17/2019 12:00:00 AM EST 150 mg completed [id number] Effexor XR 10/17/2019 01/15/2020 every morning 30 150 mg capsule,extended release 24h r 22933 [id number] Lillian Bedoya [id number] [facility] ([facility]) Prazosin 1 MG Oral Capsule prazosin 10/17/2019 12:00:00 AM EST 1 mg by mouth completed [id number] prazosin by mouth [id number] 10/17/201912/2019 at bedtime 30 1 mg capsule 97920 [id number] Lillian Bedoya [id number] [facility] ([facility]) 24 HR venlafaxine 150 MG Extended Release Oral Capsule [Effe xor] Effexor XR 10/17/2019 12:00:00 AM EST 150 mg completed [id number] Effexor XR 10/17/2019 01/15/2020 every morning 30 150 mg capsule,extended release 24h r 61905 [id number] [id number] Lillian Bedoya [id number] [facility] ([facility]) lamotrigine 100 MG Oral Tablet lamotrigine 10/13/2019 12:00:00 AM EST 100 mg by mouth completed [id number] lamotrigine by mouth [id number] 04/10/2020 twice a day 30 100 mg tablet 29492 [id number] Rah Gaona [id number] Psychiatry [facility] ([facility]) lamotrigine 100 MG Oral Tablet lamotrigine 10/13/2019 12:00:00 AM EST 100 mg by mouth completed [id number] lamotrigine by mouth [id number] 04/10/2020 twice a day 30 100 mg tablet 23273 161030 [id number] Rah Gaona [id number] Psychiat[facility] ([facility]) lamotrigine 100 MG Oral Tablet lamotrigine 10/13/2019 12:00:00 AM EST 100 mg by mouth completed [id number] lamotrigine by mouth [id number] 04/10/2020 twice a day 30 100 mg tablet 30667 427835 [id number] Rah Gaona [id number] Psychiatry [facility] ([facility]) lamotrigine 100 MG Oral Tablet lamotrigine 10/13/2019 12:00:00 AM EST 100 mg by mouth completed [id number] lamotrigine by mouth [id number] 04/10/2020 twice a day 30 100 mg tablet 98894 060855 [id number] Rah Gaona [id number] Psychiatry [facility] ([facility]) Clonidine Hydrochloride 0.1 MG Oral Tablet clonidine HCl 08/07/2019 12:00:00 AM EDT 0.1 mg by mouth completed [id number] clonidine HCl by mouth [id number] 08/07/2019 10/17/2019 twice a day 30 0.1 mg tablet 15181 [id number] Lillian Bedoya [id number] [facility] ([facility]) Clonidine Hydrochloride 0.1 MG Oral Tablet clonidine HCl 08/07/2019 12:00:00 AM EDT 0.1 mg by mouth completed [id number] clonidine HCl by mouth [id number] 08/07/2019 11/05/2019 twice a day 30 0.1 mg tablet [id number] Lillian Bedoya [id number] [facility]) Clonidine Hydrochloride 0.1 MG Oral Tablet clonidine HCl 08/07/2019 12:00:00 AM EDT 0.1 mg by mouth completed [id number] clonidine HCl by mouth [id number] 08/07/2019 11/05/2019 twice a day 30 0.1 mg tablet [id number] Lillian Bedoya [id number] [facility] ([facility]) Trazodone Hydrochloride 300 MG Oral Tablet trazodone 03/27 12:00:00 AM EDT 300 mg by mouth completed [id number] trazodone by mout h [id number] 03/27/2019 09/30/2019 at bedtime 30 300 mg tablet [id number] Edward Beltran [id number] [facility] ([facility]) Trazodone Hydrochloride 300 MG Oral Tablet trazodone 03/27 12:00:00 AM EDT 300 mg by mouth completed [id number] trazodone by mout h [id number] 03/27/2019 09/30/2019 at bedtime 30 300 mg tablet [id number] Edward Ruby [id number] [facility] ([facility]) lamotrigine 100 MG Oral Tablet lamotrigine 02/27/2019 12:00:00 AM EDT 100 mg by mouth completed [id number] lamotrigine by mouth [id number] 09/30/2019 twice a day 30 100 mg tablet [id number] S rocío Ruby [id number] [facility] ([facility]) quetiapine 400 MG Oral Tablet [Seroquel] Seroquel 01/02/2019 12 :00:00 AM EDT 400 mg completed [id number] Seroquel 01/02/2019 0 10/17/2019 at bedtime 400 mg tablet [id number] Lillian Bedoya [id number] [facility] ([facility]) celecoxib 200 MG Oral Capsule celecoxib 200 mg capsule celec oxib 200 mg capsule completed celecoxib 200 MG Oral Capsule [place] ([facility]) quetiapine 400 MG Oral Tablet quetiapine 400 mg tablet queti apine 400 mg tablet completed quetiapine 400 MG Oral Tablet [place] ([facility]) Sucralfate 100 MG/ML Oral Suspension sucralfate 100 mg /mL oral suspension sucralfate 100 mg/mL oral suspension c ompleted sucralfate 100 MG/ML Oral Suspension [place] ([facility]) varenicline 1 MG Oral Tablet Chantix Continuing Month Box 1 mg tablet Chantix Continuing Month Box 1 mg tablet compl eted varenicline 1 MG Oral Tablet [place] ([facility]) Prazosin 1 MG Oral Capsule prazosin 1 mg capsule prazosin 1 mg capsule completed prazosin 1 MG Oral Capsul e [place] ([facility]) Sulfamethoxazole 800 MG / Trimethoprim 1 60 MG Oral Tablet sulfamethoxazole 800 mg-trimethoprim 160 mg tablet sulfamethoxazole 800 mg-trimethoprim 160 mg tablet completed sulfame thoxazole 800 MG / trimethoprim 160 MG Oral Tablet [place] ([facility]) Sulfamethoxazole 800 MG / Trimethoprim 1 60 MG Oral Tablet sulfamethoxazole 800 mg-trimethoprim 160 mg tablet sulfamethoxazole 800 mg-trimethoprim 160 mg tablet completed sulfame thoxazole 800 MG / trimethoprim 160 MG Oral Tablet [place] ([facility]) varenicline 1 MG Oral Tablet Chantix Continuing Month Box 1 mg tablet Chantix Continuing Month Box 1 mg tablet compl eted varenicline 1 MG Oral Tablet [place] ([facility]) Furosemide 40 MG Oral Tablet furosemide 40 mg tablet furosemide 40 mg tablet completed furosemide 40 MG Oral Tablet [place] ([facility]) Clonazepam 1 MG Oral Tablet clonazepam 1 mg tablet clonazepam 1 mg ta blet completed clonazepam 1 MG Oral Tablet [place] ([facility]) Sulfamethoxazole 800 MG / Trimethoprim 1 60 MG Oral Tablet sulfamethoxazole 800 mg-trimethoprim 160 mg tablet sulfamethoxazole 800 mg-trimethoprim 160 mg tablet completed sulfame thoxazole 800 MG / trimethoprim 160 MG Oral Tablet [place] ([facility]) quetiapine 100 MG Oral Tablet quetiapine 100 mg tablet queti apine 100 mg tablet completed quetiapine 100 MG Oral Tablet [place] ([facility]) Sulfamethoxazole 800 MG / Trimethoprim 1 60 MG Oral Tablet sulfamethoxazole 800 mg-trimethoprim 160 mg tablet sulfamethoxazole 800 mg-trimethoprim 160 mg tablet completed sulfame thoxazole 800 MG / trimethoprim 160 MG Oral Tablet [place] ([facility]) Sucralfate 100 MG/ML Oral Suspension sucralfate 100 mg /mL oral suspension sucralfate 100 mg/mL oral suspension c ompleted sucralfate 100 MG/ML Oral Suspension [place] ([facility]) Sucralfate 100 MG/ML Oral Suspension sucralfate 100 mg /mL oral suspension sucralfate 100 mg/mL oral suspension c ompleted sucralfate 100 MG/ML Oral Suspension [place] [facility]) Sucralfate 100 MG/ML Oral Suspension sucralfate 100 mg /mL oral suspension sucralfate 100 mg/mL oral suspension c ompleted sucralfate 100 MG/ML Oral Suspension [place] ([facility]) Sucralfate 100 MG/ML Oral Suspension sucralfate 100 mg /mL oral suspension sucralfate 100 mg/mL oral suspension c ompleted sucralfate 100 MG/ML Oral Suspension [place] ([facility]) celecoxib 200 MG Oral Capsule celecoxib 200 mg capsule celec oxib 200 mg capsule completed celecoxib 200 MG Oral Capsule [place] ([facility]) Prazosin 1 MG Oral Capsule prazosin 1 mg capsule prazosin 1 mg capsule completed prazosin 1 MG Oral Capsul e [place] ([facility]) Prazosin 1 MG Oral Capsule prazosin 1 mg capsule prazosin 1 mg capsule completed prazosin 1 MG Oral Capsul e [place] ([facility]) quetiapine 100 MG Oral Tablet quetiapine 100 mg tablet queti apine 100 mg tablet completed quetiapine 100 MG Oral Tablet [place] ([facility]) varenicline 1 MG Oral Tablet Chantix Continuing Month Box 1 mg tablet Chantix Continuing Month Box 1 mg tablet compl eted varenicline 1 MG Oral Tablet [place] ([facility]) Ketorolac Tromethamine 10 MG Oral Tablet ketorolac 10 mg tablet ketorolac 10 mg tablet completed ketorolac trome thamine 10 MG Oral Tablet [place] ([facility]) Trulance 3 mg tablet [id number] completed plecanatide 3 MG Oral Tablet [Trulance] [place] ([facility]) Trulance 3 mg tablet [id number] completed plecanatide 3 MG Oral Tablet [Trulance] [place] ([facility]) Ketorolac Tromethamine 10 MG Oral Tablet ketorolac 10 mg tablet ketorolac 10 mg tablet completed ketorolac trome thamine 10 MG Oral Tablet [place] ([facility]) Sulfamethoxazole 800 MG / Trimethoprim 1 60 MG Oral Tablet sulfamethoxazole 800 mg-trimethoprim 160 mg tablet sulfamethoxazole 800 mg-trimethoprim 160 mg tablet completed sulfame thoxazole 800 MG / trimethoprim 160 MG Oral Tablet [place] ([facility]) Clonazepam 1 MG Oral Tablet clonazepam 1 mg tablet clonazepam 1 mg ta blet completed clonazepam 1 MG Oral Tablet [place] ([facility]) Sucralfate 100 MG/ML Oral Suspension sucralfate 100 mg /mL oral suspension sucralfate 100 mg/mL oral suspension c ompleted sucralfate 100 MG/ML Oral Suspension [place] ([facility]) Ketorolac Tromethamine 10 MG Oral Tablet ketorolac 10 mg tablet ketorolac 10 mg tablet completed ketorolac trome thamine 10 MG Oral Tablet [place] ([facility]) quetiapine 400 MG Oral Tablet quetiapine 400 mg tablet queti apine 400 mg tablet completed quetiapine 400 MG Oral Tablet [place] ([facility]) Chantix Starting Month Box 0.5 mg (11)-1 mg (42) tablets in dose pack [id number] completed Chantix Starti ng Month Box 0.5 mg (11)-1 mg (42) tablets in dose pack [place] ([facility]) Clonazepam 1 MG Oral Tablet clonazepam 1 mg tablet clonazepam 1 mg ta blet completed clonazepam 1 MG Oral Tablet [place]) Trulance 3 mg tablet [id number] completed plecanatide 3 MG Oral Tablet [Trulance] [place] ([facility]) quetiapine 400 MG Oral Tablet quetiapine 400 mg tablet queti apine 400 mg tablet completed quetiapine 400 MG Oral Tablet [place] ([facility]) Prazosin 1 MG Oral Capsule prazosin 1 mg capsule prazosin 1 mg capsule completed prazosin 1 MG Oral Capsul e [place] ([facility]) quetiapine 100 MG Oral Tablet quetiapine 100 mg tablet queti apine 100 mg tablet completed quetiapine 100 MG Oral Tablet [place] ([facility]) Sucralfate 100 MG/ML Oral Suspension sucralfate 100 mg /mL oral suspension sucralfate 100 mg/mL oral suspension c ompleted sucralfate 100 MG/ML Oral Suspension [place] ([facility]) quetiapine 400 MG Oral Tablet quetiapine 400 mg tablet queti apine 400 mg tablet completed quetiapine 400 MG Oral Tablet [place] ([facility]) quetiapine 100 MG Oral Tablet quetiapine 100 mg tablet queti apine 100 mg tablet completed quetiapine 100 MG Oral Tablet [place] ([facility]) Trulance 3 mg tablet [id number] completed plecanatide 3 MG Oral Tablet [Trulance] [place] ([facility]) quetiapine 400 MG Oral Tablet quetiapine 400 mg tablet queti apine 400 mg tablet completed quetiapine 400 MG Oral Tablet [place] ([facility]) Ketorolac Tromethamine 10 MG Oral Tablet ketorolac 10 mg tablet ketorolac 10 mg tablet completed ketorolac trome thamine 10 MG Oral Tablet [place] ([facility]) Clonazepam 1 MG Oral Tablet clonazepam 1 mg tablet clonazepam 1 mg ta blet completed clonazepam 1 MG Oral Tablet [place] ([facility]) Prazosin 1 MG Oral Capsule prazosin 1 mg capsule prazosin 1 mg capsule completed prazosin 1 MG Oral Capsul e [facility]) Trulance 3 mg tablet [id number] completed plecanatide 3 MG Oral Tablet [Trulance] [place] ([facility]) Trulance 3 mg tablet [id number] completed plecanatide 3 MG Oral Tablet [Trulance] [place] ([facility]) Chantix Starting Month Box 0.5 mg (11)-1 mg (42) tablets in dose pack [id number] completed Chantix Starti ng Month Box 0.5 mg (11)-1 mg (42) tablets in dose pack [place] ([facility]) Trulance 3 mg tablet [id number] completed plecanatide 3 MG Oral Tablet [Trulance] [place] ([facility]) Chantix Starting Month Box 0.5 mg (11)-1 mg (42) tablets in dose pack [id number] completed Chantix Starti ng Month Box 0.5 mg (11)-1 mg (42) tablets in dose pack [place] ([facility]) celecoxib 200 MG Oral Capsule celecoxib 200 mg capsule celec oxib 200 mg capsule completed celecoxib 200 MG Oral Capsule [place] ([facility]) quetiapine 100 MG Oral Tablet quetiapine 100 mg tablet queti apine 100 mg tablet completed quetiapine 100 MG Oral Tablet [place] ([facility]) Clonazepam 1 MG Oral Tablet clonazepam 1 mg tablet clonazepam 1 mg ta blet completed clonazepam 1 MG Oral Tablet [place] ([facility]) Ketorolac Tromethamine 10 MG Oral Tablet ketorolac 10 mg tablet ketorolac 10 mg tablet completed ketorolac trome thamine 10 MG Oral Tablet [place] ([facility]) quetiapine 100 MG Oral Tablet quetiapine 100 mg tablet queti apine 100 mg tablet completed quetiapine 100 MG Oral Tablet [place] ([facility]) celecoxib 200 MG Oral Capsule celecoxib 200 mg capsule celec oxib 200 mg capsule completed celecoxib 200 MG Oral Capsule [place] ([facility]) quetiapine 100 MG Oral Tablet quetiapine 100 mg tablet queti apine 100 mg tablet completed quetiapine 100 MG Oral Tablet [place] ([facility]) Prazosin 1 MG Oral Capsule prazosin 1 mg capsule prazosin 1 mg capsule completed prazosin 1 MG Oral Capsul e [place] ([facility]) quetiapine 400 MG Oral Tablet quetiapine 400 mg tablet queti apine 400 mg tablet completed quetiapine 400 MG Oral Tablet [place] ([facility]) celecoxib 200 MG Oral Capsule celecoxib 200 mg capsule celec oxib 200 mg capsule completed celecoxib 200 MG Oral Capsule [place] ([facility]) celecoxib 200 MG Oral Capsule celecoxib 200 mg capsule celec oxib 200 mg capsule completed celecoxib 200 MG Oral Capsule [place] ([facility]) Sulfamethoxazole 800 MG / Trimethoprim 1 60 MG Oral Tablet sulfamethoxazole 800 mg-trimethoprim 160 mg tablet sulfamethoxazole 800 mg-trimethoprim 160 mg tablet completed sulfame thoxazole 800 MG / trimethoprim 160 MG Oral Tablet [facility]) Clonazepam 1 MG Oral Tablet clonazepam 1 mg tablet clonazepam 1 mg ta blet completed clonazepam 1 MG Oral Tablet [place] ([facility]) Clonazepam 1 MG Oral Tablet clonazepam 1 mg tablet clonazepam 1 mg ta blet [facility] MG Oral Capsule celecoxib 200 mg capsule celec oxib 200 mg capsule completed celecoxib 200 MG Oral Capsule [place] ([facility]) quetiapine 400 MG Oral Tablet quetiapine 400 mg tablet queti apine 400 mg tablet completed quetiapine 400 MG Oral Tablet [facility]) Prazosin 1 MG Oral Capsule prazosin 1 mg capsule prazosin 1 mg capsule completed prazosin 1 MG Oral Capsul e [place] ([facility]) Chantix Starting Month Box 0.5 mg (11)-1 mg (42) tablets in dose pack [id number] completed Chantix Starti ng Month Box 0.5 mg (11)-1 mg (42) tablets in dose pack [place] ([facility]) Sulfamethoxazole 800 MG / Trimethoprim 1 60 MG Oral Tablet sulfamethoxazole 800 mg-trimethoprim 160 mg tablet sulfamethoxazole 800 mg-trimethoprim 160 mg tablet completed sulfame thoxazole 800 MG / trimethoprim 160 MG Oral Tablet [place] ([facility]) Ketorolac Tromethamine 10 MG Oral Tablet ketorolac 10 mg tablet ketorolac 10 mg tablet completed ketorolac trome thamine 10 MG Oral Tablet [place] ([facility]) Ketorolac Tromethamine 10 MG Oral Tablet ketorolac 10 mg tablet ketorolac 10 mg tablet completed ketorolac trome thamine 10 MG Oral Tablet [place] ([facility]) varenicline 1 MG Oral Tablet Chantix Continuing Month Box 1 mg tablet Chantix Continuing Month Box 1 mg tablet compl eted varenicline 1 MG Oral Tablet [place] ([facility]) Insurance Providers Payer name Policy type / Coverage type Policy ID Covered democrat ID Covered democrat's relationship to gilbert Policy [place] Plan Information AETNA MEDICARE [id number] SP MEBTX [id number] AETNA MEDICARE O [id number] S MEBTX [id number] AETNA MEDICARE COMPLETE G [id number] Self [id number] MEDICARE [id number] SP [id number] HUMANA GOLD [id number] SP [id number] MEDICARE [id number] SP [id number] A Aetna P [id number] S [id number] MEDICARE C [id number] S [id number] MEDICARE [id number] SP [id number] Sliding Fee Scale S [id number] S [id number] Sliding Fee Scale S [id number] S [id number] MEDICAID [id number] HUMANA GOLD [id number] SP [id number] AETNA MEDICARE [id number] SP [id number] Humana Health Plans P [id number] S [id number] MEDICARE [id number] SP [id number] MEDICARE [id number] SP [id number] HUMANA GOLD [id number] SP [id number] HUMANA MEDICARE ADVANTAGE G [id number] Self [id number] Medicare S [id number] S [id number] HUMANA GOLD [id number] SP [id number] Sliding Fee Scale S [id number] S [id number] Medicare P [id number] S [id number] Medicare Part B Medicare Primary [id number] Self [id number] MEDICARE MCA [id number] S [id number] MEDICARE MCA [id number] S [id number] MEDICAID [id number] SP [id number] Medicare P [id number] S [id number] [place] [id number] S [id number] [place]ICARE - [place] [id number] S [id number] BCBS [facility] [id number] S [id number] Sliding Fee Scale O [id number] S [id number] Medicare Part B Medicare Primary [id number] Self [id number] ANSI-Medicare Part B [id number] ANSI-Medicare Part B [id number] MEDICARE A [id number] Self [id number] [place] Medicare Primary [id number] Self [id number] ANSI-Medicare Part B [id number] HUMANA GOLD [id number] SP [id number] MEDICARE [id number] SP [id number] A [place] Medicare Primary [id number] Self [id number] [place] Medicare Primary [id number] Self [id number] Medicare P [id number] S [id number] A ANSI-Medicare Part B [id number] Medicaid S UNAVAILABLE S UNA[place]IL[place] BLE Medicaid [place] Medicaid [id number] S elf [id number] Medicare [facility] Medicare Primary [id number] Self [id number] MEDICARE A [id number] Self [id number] MEDICARE A [id number] Self [id number] A HUMANA PPO O [id number] O [id number] MEDICARE C [id number] S [id number] A HUMANA PPO [id number] SP [id number] HUMANA GOLD [id number] SP [id number] HUMANA GOLD [id number] SP [id number] HUMANA GOLD [id number] SP [id number] HUMANA GOLD [id number] SP [id number] HUMANA GOLD [id number] SP [id number] [facility] [id number] SP [id number] BCBS [place] HMO [id number] SP [id number] HMO BLUE [id number] SP [id number] [place] INS NO FAULT [id number] SP [id number] MEDICAID [id number] SP [id number] MEDICAID [id number] SP [id number] MEDICARE [id number] SP [id number] A [employer] Plans P [id number] S [id number] [employer] Plans P [id number] S [id number] [employer] ([employer]) [id number] 18 [id number] [employer] Plans P [id number] S [id number] Medicare P [id number] S [id number] A Medicare S [id number] S [id number] A HUMANA GOLD O [id number] O [id number] Medicare Part B Medicare Primary Self Humana Gold Choice Commercial Self Humana Medicare F [id number] SELF [id number] HUMANA PPO [id number] SP [id number] MEDICARE [id number] SP [id number] A Medicare C [id number] SELF [id number] A Medicaid [place] Medigap Part B Self Humana Gold/Medicare Commercial Self [facility] O [id number] S [id number] Humana Medicare F [id number] SELF [id number] HUMANA PPO [id number] SP [id number] Medicare Medicare Primary Self MEDICAID [place] [id number] S [id number] MEDICARE [id number] SP [id number] MEDICARE [id number] SP [id number] Medicare [place] Gov't Servi Medicare Primary Self SELF PAY UNAVAILABLE SP UNAVAILA BLE MEDICARE OUTPATIENT M [id number] S [id number] MEDICARE - [place] MCR [id number] S [id number] BLUE CROSS STALEY PLAN [id number] SP [id number] BLUE CHOICE OPTN FHP O [id number] S [id number] [place] INS NO FAULT [id number] SP [id number] Problems, Conditions, and Diagnoses Code Display Name Description Problem Type Effective Dates Data Source(s) 028061048 Adenocarcinoma of lung Adenocarcinoma of Lung Problem 09/23/2020 12:00:00 AM EST [place] ([facility]) 994828649 Adenocarcinoma of lung Adenocarcinoma of Lung Problem 09/23/2020 12:00:00 AM EST [place] ([facility]) 830429667 Adenocarcinoma of lung Adenocarcinoma of Lung Problem 09/23/2020 12:00:00 AM EST [place] ([facility]) 487731051 Adenocarcinoma of lung Adenocarcinoma of Lung Problem 09/23/2020 12:00:00 AM EST [place] ([facility]) C44.82 Squamous cell carcinoma of overlapping s ites of skin Squamous cell carcinoma of other specified sites of skin 07/22/2020 03:38: 40 PM EDT [facility] 163795063 Acute cystitis without hematuria Acute cystitis withou t hematuria 04/02/2020 09:51:46 AM EDT [facility] 31447295 Acute cystitis Acute Cystitis Problem 04/02/2020 12:00: 00 AM EDT [place] ([facility]) 77816460 Acute cystitis Acute Cystitis Problem 04/02/2020 12:00: 00 AM EDT [place] ([facility]) 69375712 Acute cystitis Acute Cystitis Problem 04/02/2020 12:00: 00 AM EDT [place] ([facility]) 42866350 Acute cystitis Acute Cystitis Problem 04/02/2020 12:00: 00 AM EDT [place] ([facility]) 76117319 Acute cystitis Acute Cystitis Problem 04/02/2020 12:00: 00 AM EDT [place] ([facility]) 46573399 Acute cystitis Acute Cystitis Problem 04/02/2020 12:00: 00 AM EDT [place] ([facility]) 14127637 Acute cystitis Acute Cystitis Problem 04/02/2020 12:00: 00 AM EDT [place] ([facility]) 30029963 Acute cystitis Acute Cystitis Problem 04/02/2020 12:00: 00 AM EDT [place] ([facility]) 06523475 Acute cystitis Acute Cystitis Problem 04/02/2020 12:00: 00 AM EDT [place] ([facility]) 33006589 Acute cystitis Acute Cystitis Problem 04/02/2020 12:00: 00 AM EDT [place] ([facility]) 43860884 Acute cystitis Acute Cystitis Problem 04/02/2020 12:00: 00 AM EDT [place] ([facility]) 793.11 Solitary nodule of lung Solitary nodule of lung 03/15/2020 02:29:54 PM EDT [facility] [id number] [place] lesion of lung [place] Lesion of Lung Problem 0 03/15/2020 12:00:00 AM EDT [place] ([facility]) 800202172 [place] lesion of lung [place] Lesion of Lung Problem 0 03/15/2020 12:00:00 AM EDT [place] ([facility]) 449926877 [place] lesion of lung [place] Lesion of Lung Problem 0 03/15/2020 12:00:00 AM EDT [place] ([facility]) 659592794 [place] lesion of lung [place] Lesion of Lung Problem 0 03/15/2020 12:00:00 AM EDT [place] ([facility]) 784720680 [place] lesion of lung [place] Lesion of Lung Problem 0 03/15/2020 12:00:00 AM EDT [place] ([facility]) 738813993 [place] lesion of lung [place] Lesion of Lung Problem 0 03/15/2020 12:00:00 AM EDT [place] ([facility]) 519108562 [place] lesion of lung [place] Lesion of Lung Problem 0 03/15/2020 12:00:00 AM EDT [place] ([facility]) 805473165 [place] lesion of lung [place] Lesion of Lung Problem 0 03/15/2020 12:00:00 AM EDT [place] ([facility]) [id number] [place] lesion of lung [place] Lesion of Lung Problem 0 03/15/2020 12:00:00 AM EDT [place] ([facility]) 519603056 [place] lesion of lung [place] Lesion of Lung Problem 0 03/15/2020 12:00:00 AM EDT [place] ([facility]) 627411853 [place] lesion of lung [place] Lesion of Lung Problem 0 03/15/2020 12:00:00 AM EDT [place] ([facility]) G44.229 Chronic tension-type headache, not intra ctable Chronic tension-type headache 02/06/2020 02:30:13 PM EDT [facility] [id number] Chronic tension-type headache Chronic Tension-type Hea dache Problem 02/06/2020 12:00:00 AM EDT [place] ([facility]) 635901225 Chronic tension-type headache Chronic Tension-type Hea dache Problem 02/06/2020 12:00:00 AM EDT [place] ([facility]) 894977412 Chronic tension-type headache Chronic Tension-type Hea dache Problem 02/06/2020 12:00:00 AM EDT [place] ([facility]) 566183601 Chronic tension-type headache Chronic Tension-type Hea dache Problem 02/06/2020 12:00:00 AM EDT [place] ([facility]) 405429178 Chronic tension-type headache Chronic Tension-type Hea dache Problem 02/06/2020 12:00:00 AM EDT [place] ([facility]) 084274691 Chronic tension-type headache Chronic Tension-type Hea dache Problem 02/06/2020 12:00:00 AM EDT [place] ([facility]) 932163216 Chronic tension-type headache Chronic Tension-type Hea dache Problem 02/06/2020 12:00:00 AM EDT [place] ([facility]) 924354157 Chronic tension-type headache Chronic Tension-type Hea dache Problem 02/06/2020 12:00:00 AM EDT [place] ([facility]) 063277969 Chronic tension-type headache Chronic Tension-type Hea dache Problem 02/06/2020 12:00:00 AM EDT [place] ([facility]) [id number] Chronic tension-type headache Chronic Tension-type Hea dache Problem 02/06/2020 12:00:00 AM EDT [place] ([facility]) [id number] Chronic tension-type headache Chronic Tension-type Hea dache Problem 02/06/2020 12:00:00 AM EDT [place] ([facility]) 782.0 Numbness of lower limb Numbness of lower limb 01/13/2020 01:42:40 PM EDT [facility] [id number] Chest pain, unspecified Chest pain, unspecified 01/13/2020 01:42:40 PM EDT [facility] [id number] Chest pain Chest Pain Problem 01/13/2020 12:00:00 AM ED T [place] ([facility]) [id number] Anesthesia of skin Anesthesia of Skin Problem 12:00:00 AM EDT [place] ([facility]) 49958737 Chest pain Chest Pain Problem 01/13/2020 12:00:00 AM ED T [place] ([facility]) [id number] Anesthesia of skin Anesthesia of Skin Problem 12:00:00 AM EDT [place] ([facility]) 87045779 Chest pain Chest Pain Problem 01/13/2020 12:00:00 AM ED T [place] ([facility]) [id number] Anesthesia of skin Anesthesia of Skin Problem 12:00:00 AM EDT [place] ([facility]) 26920755 Chest pain Chest Pain Problem 01/13/2020 12:00:00 AM ED T [place] ([facility]) [id number] Anesthesia of skin Anesthesia of Skin Problem 12:00:00 AM EDT [place] ([facility]) 17402622 Chest pain Chest Pain Problem 01/13/2020 12:00:00 AM ED T [place] ([facility]) [id number] Anesthesia of skin Anesthesia of Skin Problem 12:00:00 AM EDT [place] ([facility]) [id number] Chest pain Chest Pain Problem 01/13/2020 12:00:00 AM ED T [place] ([facility]) [id number] Anesthesia of skin Anesthesia of Skin Problem 12:00:00 AM EDT [place] ([facility]) 08653363 Chest pain Chest Pain Problem 01/13/2020 12:00:00 AM ED T [place] ([facility]) 100534774 Anesthesia of skin Anesthesia of Skin Problem 12:00:00 AM EDT [place] ([facility]) 85212781 Chest pain Chest Pain Problem 01/13/2020 12:00:00 AM ED T [place] ([facility]) 991830162 Anesthesia of skin Anesthesia of Skin Problem 12:00:00 AM EDT [place] ([facility]) 32477642 Chest pain Chest Pain Problem 01/13/2020 12:00:00 AM ED T [place] ([facility]) [id number] Anesthesia of skin Anesthesia of Skin Problem 12:00:00 AM EDT [place] ([facility]) 67878333 Chest pain Chest Pain Problem 01/13/2020 12:00:00 AM ED T [place] ([facility]) 019368004 Anesthesia of skin Anesthesia of Skin Problem 12:00:00 AM EDT [place] ([facility]) 77524522 Chest pain Chest Pain Problem 01/13/2020 12:00:00 AM ED T [place] ([facility]) [id number] Anesthesia of skin Anesthesia of Skin Problem 12:00:00 AM EDT [place] ([facility]) F31.9 Bipolar disorder, unspecified Bipolar Disorder 12/12/2019 01:35:58 PM EST [facility] [id number] Bipolar II disorder Bipolar II Disorder Problem 0 12/08/2019 12:00:00 AM EST [place] ([facility]) 19240585 Bipolar II disorder Bipolar II Disorder Problem 0 12/08/2019 12:00:00 AM EST [place] ([facility]) 92598881 Bipolar II disorder Bipolar II Disorder Problem 0 12/08/2019 12:00:00 AM EST [place] ([facility]) 67207606 Bipolar II disorder Bipolar II Disorder Problem 0 12/08/2019 12:00:00 AM EST [place] ([facility]) 38767859 Bipolar II disorder Bipolar II Disorder Problem 0 12/08/2019 12:00:00 AM EST [place] ([facility]) 35771095 Bipolar II disorder Bipolar II Disorder Problem 0 12/08/2019 12:00:00 AM EST [place] ([facility]) 46240154 Bipolar II disorder Bipolar II Disorder Problem 0 12/08/2019 12:00:00 AM EST [place] ([facility]) 83817416 Bipolar II disorder Bipolar II Disorder Problem 0 12/08/2019 12:00:00 AM EST [place] ([facility]) 73853730 Bipolar II disorder Bipolar II Disorder Problem 0 12/08/2019 12:00:00 AM EST [place] ([facility]) 04795298 Bipolar II disorder Bipolar II Disorder Problem 0 12/08/2019 12:00:00 AM EST [place] ([facility]) 49783182 Bipolar II disorder Bipolar II Disorder Problem 0 12/08/2019 12:00:00 AM EST [place] ([facility]) F17.200 Nicotine dependence, unspecified, uncomp licated Tobacco Use Disorder, Moderate Condition 11/10/2019 12:00:00 AM EST [facility] ( [facility]) F43.12 Post-traumatic stress disorder, chronic Post-traumatic stress disorder, chronic Condition 11/10/2019 12:00:00 AM EST [facility] ([facility]) F60.3 Borderline personality disorder Borderline Personality Disorder Condition 11/10/2019 12:00:00 AM EST [facility] ([facility]) F31.9 Bipolar disorder, unspecified Unspecified [place] r and Related Disorder Condition 11/10/2019 12:00:00 AM EST [facility] ([facility]) 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 [place], ) Lymphadenectomy Thoracic [facility] 09/15/2020 12:00:00 AM EST [facility] ([facility]) Spirometry 07/23/2020 12:00:00 AM EDT [facility] ([facility]) Bronchospasm Evaluation 07/23/2020 12:00:00 AM EDT [facility] ([facility] [place], ) Maximum Breathing Capacity, Maximal Voluntary Ventilation 07/23/2020 12:00:00 AM EDT [facility] ([facility]) Plethysmography Determination Lung Volumes & Per Airway Resi st 07/23/2020 12:00:00 AM EDT [facility] ([facility]) DIFFUSING CAPACITY 07/23/2020 12:00:00 AM EDT [facility] ([facility]) Endoscopy Upper GI Biopsy 04/12/2020 12:00:00 AM EDT [facility] ([facility] [place], ) Dilate Esophagus Unguided Sound Or Bougie 04/12/2020 1 2:00:00 AM EDT [facility] ([facility] [place], ) Extended Individual Psychotherapy - 45 min 11/10/2019 12:00:00 AM EST - 11/10/2019 12:00:00 AM EST [facility] ([facility]) Extended Individual Psychotherapy - 45 min 0 12:00:00 AM EST [facility] ([facility]) Extended Individual Psychotherapy - 45 min 10/29/2019 12:00:00 AM EST - 10/29/2019 12:00:00 AM EST [facility] ([facility]) Extended Individual Psychotherapy - 45 min 0 12:00:00 AM EST [facility] ([facility]) OFFICE OUTPATIENT VISIT 15 MINUTES 10/17 12:00:00 AM EST - 10/17/2019 12:00:00 AM EST [facility] ([facility]) Psychotherapy ADD ON - 30 Minutes 10/17/2019 12:00:00 AM EST [facility] ([facility]) OFFICE OUTPATIENT VISIT 15 MINUTES 10/17/2019 12:00:00 AM EST [facility] ([facility]) Extended Individual Psychotherapy - 45 min 10/16/2019 12:00:00 AM EST - 10/16/2019 12:00:00 AM EST [facility] ([facility]) Extended Individual Psychotherapy - 45 min 9 12:00:00 AM EST [facility] ([facility]) Extended Individual Psychotherapy - 45 min 09/23/2019 12:00:00 AM EST - 09/23/2019 12:00:00 AM EST [facility] ([facility]) Extended Individual Psychotherapy - 45 min 9 12:00:00 AM EST [facility] ([facility]) Results ID Date Data Source [id number] 09/20/2020 04:38:00 AM EST [place] ([facility]) Name Value Range Interpretation Code Description Data Ariane rce(s) Supporting Document(s) glucose, fasting 103 mg/dL 70-100 Above high normal Glucose, Fas ting [place] ([facility]) blood urea nitrogen 11 mg/dL 7-18 normal Blood Urea Nitro gen [place] ([facility]) creatinine for GFR 0.69 mg/dL 0.55-1.30 normal Creatinine for GF R [place] ([facility]) glomerular filtration rate > 60.0 >51 normal Glomerula r Filtration Rate [place] ([facility]) sodium level 138 mEq/L 136-145 normal Sodium Level [facility] potassium serum 4.4 mEq/L 3.5-5.1 normal Potassium Serum [facility] ([facility]) chloride level 109 mEq/L 98-107 Above high normal Chloride Level [place] ([facility]) carbon dioxide level 24 mEq/L 21-32 normal Carbon Dioxide Level [place] ([facility]) anion gap 5 mEq/L 8-16 Below low normal Anion Gap [place] ( [facility]) calcium level 8.6 mg/dL 8.5-10.1 normal Calcium Level [place] ( [facility]) ID Date Data Source [id number] 09/20/2020 04:38:00 AM EST [place] ([facility]) Name Value Range Interpretation Code Description Data Ariane rce(s) Supporting Document(s) white blood count 8.2 10 4.0-10.0 normal White Blood Count [place] ([facility]) red blood count 3.22 10 4.00-5.40 Below low normal Red Blood Coun t [place] ([facility]) hematocrit 31.7 % 36.0-47.0 Below low normal Hematocrit [place] ( [facility]) hemoglobin 10.2 g/dL 12.0-15.5 Below low normal Hemoglobin [place] ( [facility]) mean corpuscular volume 98.4 fL 80.0-96.0 Above high normal Mean Corpuscular Volume [place] ([facility]) mean corpuscular hemoglobin 31.7 pg 27.0-33.0 normal Mean Corpuscular Hemoglobin [place] ([facility]) mean corpuscular HGB conc 32.2 g/dL 32.0-36.5 normal Mean Corpu scular HGB Conc [place] ([facility]) red cell distribution width 12.8 % 11.5-14.5 normal Red Cell Distribution Width [place] ([facility]) platelet count, automated 253 10 150-450 normal Platelet C ount, Automated [place] ([facility]) neutrophils % 73.6 % 36.0-66.0 Above high normal Neutrophils % A [place] ([facility]) lymph % 8.7 % 24.0-44.0 Below low normal Lymph % [place] ( [facility]) eos % 5.6 % 0.0-3.0 Above high normal Eos % [place] ([facility]) mono % 10.8 % 0.0-5.0 Above high normal [place] % [place] ([facility]) baso % 0.6 % 0.0-1.0 normal Baso % [place] ([facility]) immature granulocyte % 0.7 % 0-3.0 normal Immature Gran ulocyte % [place] ([facility]) nucleated red blood cell % 0.0 % 0-0 normal Nucleated Red Blood Cell % [place] ([facility]) neutrophils # 6.0 10 1.5-8.5 normal Neutrophils # [place] ( [facility]) lymph # 0.7 10 1.5-5.0 Below low normal Lymph # [place] ( [facility]) mono # 0.9 10 0.0-0.8 Above high normal [place] # [place] ([facility]) eos # 0.5 10 0.0-0.5 normal Eos # [place] ([facility]) baso # 0.1 10 0.0-0.2 normal Baso # [place] ([facility]) ID Date Data Source [id number] 09/20/2020 04:38:00 AM EST [place] ([facility]) Name Value Range Interpretation Code Description Data Ariane rce(s) Supporting Document(s) glucose, fasting 103 mg/dL 70-100 Above high normal Glucose, Fas ting [place] ([facility]) blood urea nitrogen 11 mg/dL 7-18 normal Blood Urea Nitro gen [place] ([facility]) creatinine for GFR 0.69 mg/dL 0.55-1.30 normal Creatinine for GF R [place] ([facility]) glomerular filtration rate > 60.0 >51 normal Glomerula r Filtration Rate [place] ([facility]) sodium level 138 mEq/L 136-145 normal Sodium Level [place] ([facility]) potassium serum 4.4 mEq/L 3.5-5.1 normal Potassium Serum [facility] ([facility]) chloride level 109 mEq/L 98-107 Above high normal Chloride Level [place] ([facility]) carbon dioxide level 24 mEq/L 21-32 normal Carbon Dioxide Level [place] ([facility]) anion gap 5 mEq/L 8-16 Below low normal Anion Gap [place] ( [facility]) calcium level 8.6 mg/dL 8.5-10.1 normal Calcium Level [place] ( [facility]) ID Date Data Source [id number] 09/20/2020 04:38:00 AM EST [place] ([facility]) Name Value Range Interpretation Code Description Data Ariane rce(s) Supporting Document(s) white blood count 8.2 10 4.0-10.0 normal White Blood Count [place] ([facility]) red blood count 3.22 10 4.00-5.40 Below low normal Red Blood Coun t [place] ([facility]) hemoglobin 10.2 g/dL 12.0-15.5 Below low normal Hemoglobin [place] ( [facility]) hematocrit 31.7 % 36.0-47.0 Below low normal Hematocrit [place] ( [facility]) mean corpuscular volume 98.4 fL 80.0-96.0 Above high normal Mean Corpuscular Volume [place] ([facility]) mean corpuscular hemoglobin 31.7 pg 27.0-33.0 normal Mean Corpuscular Hemoglobin [place] ([facility]) mean corpuscular HGB conc 32.2 g/dL 32.0-36.5 normal Mean Corpu scular HGB Conc [place] ([facility]) red cell distribution width 12.8 % 11.5-14.5 normal Red Cell Distribution Width [place] ([facility]) platelet count, automated 253 10 150-450 normal Platelet C ount, Automated [place] ([facility]) neutrophils % 73.6 % 36.0-66.0 Above high normal Neutrophils % A [place] ([facility]) lymph % 8.7 % 24.0-44.0 Below low normal Lymph % [place] ( [facility]) eos % 5.6 % 0.0-3.0 Above high normal Eos % [place] ([facility]) mono % 10.8 % 0.0-5.0 Above high normal [place] % [place] ([facility]) baso % 0.6 % 0.0-1.0 normal Baso % [place] ([facility]) immature granulocyte % 0.7 % 0-3.0 normal Immature Gran ulocyte % [place] ([facility]) nucleated red blood cell % 0.0 % 0-0 normal Nucleated Red Blood Cell % [place] ([facility]) lymph # 0.7 10 1.5-5.0 Below low normal Lymph # [place] ( [facility]) neutrophils # 6.0 10 1.5-8.5 normal Neutrophils # [place] ( [facility]) mono # 0.9 10 0.0-0.8 Above high normal [place] # [place] ([facility]) baso # 0.1 10 0.0-0.2 normal Baso # [place] ([facility]) eos # 0.5 10 0.0-0.5 normal Eos # [place] ([facility]) ID Date Data Source [id number] 09/20/2020 04:38:00 AM EST [place] ([facility]) Name Value Range Interpretation Code Description Data Ariane rce(s) Supporting Document(s) glucose, fasting 103 mg/dL 70-100 Above high normal Glucose, Fas ting [place] ([facility]) blood urea nitrogen 11 mg/dL 7-18 normal Blood Urea Nitro gen [place] ([facility]) creatinine for GFR 0.69 mg/dL 0.55-1.30 normal Creatinine for GF R [place] ([facility]) glomerular filtration rate > 60.0 >51 normal Glomerula r Filtration Rate [place] ([facility]) sodium level 138 mEq/L 136-145 normal Sodium Level [place] ([facility]) potassium serum 4.4 mEq/L 3.5-5.1 normal Potassium Serum [facility] ([facility]) chloride level 109 mEq/L 98-107 Above high normal Chloride Level [place] ([facility]) carbon dioxide level 24 mEq/L 21-32 normal Carbon Dioxide Level [place] ([facility]) anion gap 5 mEq/L 8-16 Below low normal Anion Gap [place] ( [facility]) calcium level 8.6 mg/dL 8.5-10.1 normal Calcium Level [place] ( [facility]) ID Date Data Source [id number] 09/20/2020 04:38:00 AM EST [place] ([facility]) Name Value Range Interpretation Code Description Data Ariane rce(s) Supporting Document(s) white blood count 8.2 10 4.0-10.0 normal White Blood Count [place] ([facility]) red blood count 3.22 10 4.00-5.40 Below low normal Red Blood Coun t [place] ([facility]) hemoglobin 10.2 g/dL 12.0-15.5 Below low normal Hemoglobin [place] ( [facility]) hematocrit 31.7 % 36.0-47.0 Below low normal Hematocrit [place] ( [facility]) mean corpuscular volume 98.4 fL 80.0-96.0 Above high normal Mean Corpuscular Volume [place] ([facility]) mean corpuscular hemoglobin 31.7 pg 27.0-33.0 normal Mean Corpuscular Hemoglobin [place] ([facility]) mean corpuscular HGB conc 32.2 g/dL 32.0-36.5 normal Mean Corpu scular HGB Conc [place] ([facility]) red cell distribution width 12.8 % 11.5-14.5 normal Red Cell Distribution Width [place] ([facility]) platelet count, automated 253 10 150-450 normal Platelet C ount, Automated [place] ([facility]) neutrophils % 73.6 % 36.0-66.0 Above high normal Neutrophils % [facility] [place] ([facility]) lymph % 8.7 % 24.0-44.0 Below low normal Lymph % [place] ( [facility]) mono % 10.8 % 0.0-5.0 Above high normal [place] % [place] ([facility]) eos % 5.6 % 0.0-3.0 Above high normal Eos % [place] ([facility]) baso % 0.6 % 0.0-1.0 normal Baso % [place] ([facility]) immature granulocyte % 0.7 % 0-3.0 normal Immature Gran ulocyte % [place] ([facility]) nucleated red blood cell % 0.0 % 0-0 normal Nucleated Red Blood Cell % [place] ([facility]) neutrophils # 6.0 10 1.5-8.5 normal Neutrophils # [place] ( [facility]) lymph # 0.7 10 1.5-5.0 Below low normal Lymph # [place] ( [facility]) mono # 0.9 10 0.0-0.8 Above high normal [place] # [place] ([facility]) eos # 0.5 10 0.0-0.5 normal Eos # [place] ([facility]) baso # 0.1 10 0.0-0.2 normal Baso # [place] ([facility]) ID Date Data Source [id number] 09/20/2020 04:38:00 AM EST [place] ([facility]) Name Value Range Interpretation Code Description Data Ariane rce(s) Supporting Document(s) glucose, fasting 103 mg/dL 70-100 Above high normal Glucose, Fas ting [place] ([facility]) blood urea nitrogen 11 mg/dL 7-18 normal Blood Urea Nitro gen [place] ([facility]) creatinine for GFR 0.69 mg/dL 0.55-1.30 normal Creatinine for GF R [place] ([facility]) glomerular filtration rate > 60.0 >51 normal Glomerula r Filtration Rate [place] ([facility]) sodium level 138 mEq/L 136-145 normal Sodium Level [place] ([facility]) potassium serum 4.4 mEq/L 3.5-5.1 normal Potassium Serum [facility] ([facility]) chloride level 109 mEq/L 98-107 Above high normal Chloride Level [place] ([facility]) carbon dioxide level 24 mEq/L 21-32 normal Carbon Dioxide Level [place] ([facility]) anion gap 5 mEq/L 8-16 Below low normal Anion Gap [place] ( [facility]) calcium level 8.6 mg/dL 8.5-10.1 normal Calcium Level [place] ( [facility]) ID Date Data Source [id number] 09/20/2020 04:38:00 AM EST [facility]) Name Value Range Interpretation Code Description Data Ariane rce(s) Supporting Document(s) white blood count 8.2 10 4.0-10.0 normal White Blood Count [place] ([facility]) red blood count 3.22 10 4.00-5.40 Below low normal Red Blood Coun t [place] ([facility]) hemoglobin 10.2 g/dL 12.0-15.5 Below low normal Hemoglobin [place] ( [facility]) hematocrit 31.7 % 36.0-47.0 Below low normal Hematocrit [place] ( [facility]) mean corpuscular volume 98.4 fL 80.0-96.0 Above high normal Mean Corpuscular Volume [place] ([facility]) mean corpuscular hemoglobin 31.7 pg 27.0-33.0 normal Mean Corpuscular Hemoglobin [place] ([facility]) mean corpuscular HGB conc 32.2 g/dL 32.0-36.5 normal Mean Corpu scular HGB Conc [place] ([facility]) red cell distribution width 12.8 % 11.5-14.5 normal Red Cell Distribution Width [place] ([facility]) platelet count, automated 253 10 150-450 normal [facility], [facility] neutrophils % 73.6 % 36.0-66.0 Above high normal Neutrophils % [facility] [place] ([facility]) lymph % 8.7 % 24.0-44.0 Below low normal Lymph % [place] ( [facility]) mono % 10.8 % 0.0-5.0 Above high normal [place] % [place] ([facility]) eos % 5.6 % 0.0-3.0 Above high normal Eos % [place] ([facility]) baso % 0.6 % 0.0-1.0 normal Baso % [place] ([facility]) immature granulocyte % 0.7 % 0-3.0 normal Immature Gran ulocyte % [place] ([facility]) nucleated red blood cell % 0.0 % 0-0 normal Nucleated Red Blood Cell % [place] ([facility]) neutrophils # 6.0 10 1.5-8.5 normal Neutrophils # [place] ( [facility]) lymph # 0.7 10 1.5-5.0 Below low normal Lymph # [place] ( [facility]) mono # 0.9 10 0.0-0.8 Above high normal [place] # [place] ([facility]) eos # 0.5 10 0.0-0.5 normal Eos # [place] ([facility]) baso # 0.1 10 0.0-0.2 normal Baso # [place] ([facility]) ID Date Data Source [id number] 09/19/2020 05:07:00 AM EST [place] ([facility]) Name Value Range Interpretation Code Description Data Ariane rce(s) Supporting Document(s) glucose, fasting 87 mg/dL 70-100 normal Glucose, Fasting AT [facility] ([facility]) blood urea nitrogen 16 mg/dL 7-18 normal Blood Urea Nitro gen [place] ([facility]) creatinine for GFR 0.75 mg/dL 0.55-1.30 normal Creatinine for GF R [place] ([facility]) glomerular filtration rate > 60.0 >51 normal Glomerula r Filtration Rate [place] ([facility]) sodium level 139 mEq/L 136-145 normal Sodium Level [place] ([facility]) potassium serum 4.5 mEq/L 3.5-5.1 normal Potassium Serum [facility] ([facility]) chloride level 109 mEq/L 98-107 Above high normal Chloride Level [place] ([facility]) carbon dioxide level 24 mEq/L 21-32 normal Carbon Dioxide Level [place] ([facility]) anion gap 6 mEq/L 8-16 Below low normal Anion Gap [place] ( [facility]) calcium level 8.3 mg/dL 8.5-10.1 Below low normal Calcium Level AT [facility] ([facility]) ID Date Data Source [id number] 09/19/2020 05:07:00 AM EST [facility]) Name Value Range Interpretation Code Description Data Ariane rce(s) Supporting Document(s) white blood count 7.1 10 4.0-10.0 normal White Blood Count [place] ([facility]) red blood count 3.02 10 4.00-5.40 Below low normal Red Blood Coun t [place] ([facility]) hemoglobin 9.5 g/dL 12.0-15.5 Below low normal Hemoglobin [place] ( [facility]) hematocrit 30.2 % 36.0-47.0 Below low normal Hematocrit [facility] [facility] mean corpuscular volume 100.0 fL 80.0-96.0 Above high normal Mean Corpuscular Volume [place] ([facility]) mean corpuscular hemoglobin 31.5 pg 27.0-33.0 normal Mean Corpuscular Hemoglobin [place] ([facility]) mean corpuscular HGB conc 31.5 g/dL 32.0-36.5 Below low ryann l Mean Corpuscular HGB Conc [place] ([facility]) red cell distribution width 13.2 % 11.5-14.5 normal Red Cell Distribution Width [place] ([facility]) neutrophils % 62.8 % 36.0-66.0 normal Neutrophils % [place] ( [facility]) platelet count, automated 220 10 150-450 normal [facility], [facility] lymph % 17.8 % 24.0-44.0 Below low normal Lymph % [place] ( [facility]) eos % 6.5 % 0.0-3.0 Above high normal Eos % [place] ([facility]) mono % 11.7 % 0.0-5.0 Above high normal [place] % [place] ([facility]) baso % 0.4 % 0.0-1.0 normal Baso % [place] ([facility]) nucleated red blood cell % 0.0 % 0-0 normal Nucleated Red Blood Cell % [place] ([facility]) immature granulocyte % 0.8 % 0-3.0 normal Immature Gran ulocyte % [place] ([facility]) neutrophils # 4.5 10 1.5-8.5 normal Neutrophils # [place] ( [facility]) mono # 0.8 10 0.0-0.8 normal [place] # [place] ([facility]) lymph # 1.3 10 1.5-5.0 Below low normal Lymph # [place] ( [facility]) baso # 0.0 10 0.0-0.2 normal Baso # [place] ([facility]) eos # 0.5 10 0.0-0.5 normal Eos # [place] ([facility]) ID Date Data Source [id number] 09/19/2020 05:07:00 AM EST [place] ([facility]) Name Value Range Interpretation Code Description Data Ariane rce(s) Supporting Document(s) glucose, fasting 87 mg/dL 70-100 normal Glucose, Fasting AT [place] ([facility]) creatinine for GFR 0.75 mg/dL 0.55-1.30 normal Creatinine for GF R [place] ([facility]) blood urea nitrogen 16 mg/dL 7-18 normal Blood Urea Nitro gen [place] ([facility]) glomerular filtration rate > 60.0 >51 normal Glomerula r Filtration Rate [place] ([facility]) potassium serum 4.5 mEq/L 3.5-5.1 normal Potassium Serum ATH NA ([facility]) sodium level 139 mEq/L 136-145 normal Sodium Level [place] ([facility]) carbon dioxide level 24 mEq/L 21-32 normal Carbon Dioxide Level [place] ([facility]) chloride level 109 mEq/L 98-107 Above high normal Chloride Level [place] ([facility]) anion gap 6 mEq/L 8-16 Below low normal Anion Gap [place] ( [facility]) calcium level 8.3 mg/dL 8.5-10.1 Below low normal Calcium Level AT [facility]) ID Date Data Source [id number] 09/19/2020 05:07:00 AM EST [facility]) Name Value Range Interpretation Code Description Data Ariane rce(s) Supporting Document(s) white blood count 7.1 10 4.0-10.0 normal White Blood Count [place] ([facility]) hemoglobin 9.5 g/dL 12.0-15.5 Below low normal Hemoglobin [place] ( [facility]) red blood count 3.02 10 4.00-5.40 Below low normal Red Blood Coun t [place] ([facility]) hematocrit 30.2 % 36.0-47.0 Below low normal Hematocrit [place] ( [facility]) mean corpuscular volume 100.0 fL 80.0-96.0 Above high normal Mean Corpuscular Volume [place] ([facility]) mean corpuscular hemoglobin 31.5 pg 27.0-33.0 normal Mean Corpuscular Hemoglobin [place] ([facility]) mean corpuscular HGB conc 31.5 g/dL 32.0-36.5 Below low ryann l Mean Corpuscular HGB Conc [place] ([facility]) red cell distribution width 13.2 % 11.5-14.5 normal Red Cell Distribution Width [place] ([facility]) platelet count, automated 220 10 150-450 normal Platelet C ount, Automated [facility]) lymph % 17.8 % 24.0-44.0 Below low normal Lymph % [facility]) neutrophils % 62.8 % 36.0-66.0 normal Neutrophils % [facility]) mono % 11.7 % 0.0-5.0 Above high normal [place] % [place] ([facility]) eos % 6.5 % 0.0-3.0 Above high normal Eos % [place] ([facility]) baso % 0.4 % 0.0-1.0 normal Baso % [place] ([facility]) immature granulocyte % 0.8 % 0-3.0 normal Immature Gran ulocyte % [place] ([facility]) nucleated red blood cell % 0.0 % 0-0 normal Nucleated Red Blood Cell % [place] ([facility]) neutrophils # 4.5 10 1.5-8.5 normal Neutrophils # [place] ( [facility]) lymph # 1.3 10 1.5-5.0 Below low normal Lymph # [place] ( [facility]) mono # 0.8 10 0.0-0.8 normal [place] # [place] ([facility]) eos # 0.5 10 0.0-0.5 normal Eos # [place] ([facility]) baso # 0.0 10 0.0-0.2 normal Baso # [place] ([facility]) ID Date Data Source [id number] 09/19/2020 05:07:00 AM EST [place] ([facility]) Name Value Range Interpretation Code Description Data Ariane rce(s) Supporting Document(s) glucose, fasting 87 mg/dL 70-100 normal Glucose, Fasting AT [facility]) blood urea nitrogen 16 mg/dL 7-18 normal Blood Urea Nitro gen [place] ([facility]) creatinine for GFR 0.75 mg/dL 0.55-1.30 normal Creatinine for GF R [place] ([facility]) glomerular filtration rate > 60.0 >51 normal Glomerula r Filtration Rate [place] ([facility]) sodium level 139 mEq/L 136-145 normal Sodium Level [place] (No [facility]) potassium serum 4.5 mEq/L 3.5-5.1 normal Potassium Serum ATH NA ([facility]) chloride level 109 mEq/L 98-107 Above high normal Chloride Level [place] ([facility]) carbon dioxide level 24 mEq/L 21-32 normal Carbon Dioxide Level [place] ([facility]) anion gap 6 mEq/L 8-16 Below low normal Anion Gap [place] ( [facility]) calcium level 8.3 mg/dL 8.5-10.1 Below low normal Calcium Level AT [facility] ([facility]) ID Date Data Source [id number] 09/19/2020 05:07:00 AM EST [place] ([facility]) Name Value Range Interpretation Code Description Data Ariane rce(s) Supporting Document(s) white blood count 7.1 10 4.0-10.0 normal White Blood Count [place] ([facility]) red blood count 3.02 10 4.00-5.40 Below low normal Red Blood Coun t [place] ([facility]) hemoglobin 9.5 g/dL 12.0-15.5 Below low normal Hemoglobin [place] ( [facility]) hematocrit 30.2 % 36.0-47.0 Below low normal Hematocrit [place] ( [facility]) mean corpuscular volume 100.0 fL 80.0-96.0 Above high normal Mean Corpuscular Volume [place] ([facility]) mean corpuscular hemoglobin 31.5 pg 27.0-33.0 normal Mean Corpuscular Hemoglobin [place] ([facility]) mean corpuscular HGB conc 31.5 g/dL 32.0-36.5 Below low ryann l Mean Corpuscular HGB Conc [place] ([facility]) red cell distribution width 13.2 % 11.5-14.5 normal Red Cell Distribution Width [place] ([facility]) platelet count, automated 220 10 150-450 normal Platelet C ount, Automated [facility]) neutrophils % 62.8 % 36.0-66.0 normal Neutrophils % [place] ( [facility]) lymph % 17.8 % 24.0-44.0 Below low normal Lymph % [facility]) mono % 11.7 % 0.0-5.0 Above high normal [place] % [place] ([facility]) eos % 6.5 % 0.0-3.0 Above high normal Eos % [place] ([facility]) baso % 0.4 % 0.0-1.0 normal Baso % [place] ([facility]) immature granulocyte % 0.8 % 0-3.0 normal Immature Gran ulocyte % [place] ([facility]) nucleated red blood cell % 0.0 % 0-0 normal Nucleated Red Blood Cell % [place] ([facility]) neutrophils # 4.5 10 1.5-8.5 normal Neutrophils # [place] ( [facility]) lymph # 1.3 10 1.5-5.0 Below low normal Lymph # [place] ( [facility]) mono # 0.8 10 0.0-0.8 normal [place] # [place] ([facility]) eos # 0.5 10 0.0-0.5 normal Eos # [place] ([facility]) baso # 0.0 10 0.0-0.2 normal Baso # [place] ([facility]) ID Date Data Source [id number] 09/19/2020 05:07:00 AM EST [place] ([facility]) Name Value Range Interpretation Code Description Data Ariane rce(s) Supporting Document(s) glucose, fasting 87 mg/dL 70-100 normal Glucose, Fasting AT [facility]) blood urea nitrogen 16 mg/dL 7-18 normal Blood Urea Nitro gen [place] ([facility]) glomerular filtration rate > 60.0 >51 normal Glomerula r Filtration Rate [place] ([facility]) creatinine for GFR 0.75 mg/dL 0.55-1.30 normal Creatinine for GF R [place] ([facility]) sodium level 139 mEq/L 136-145 normal Sodium Level [place] (No [facility]) potassium serum 4.5 mEq/L 3.5-5.1 normal Potassium Serum ATH NA ([facility]) chloride level 109 mEq/L 98-107 Above high normal Chloride Level [place] ([facility]) anion gap 6 mEq/L 8-16 Below low normal Anion Gap [place] ( [facility]) carbon dioxide level 24 mEq/L 21-32 normal Carbon Dioxide Level [place] ([facility]) calcium level 8.3 mg/dL 8.5-10.1 Below low normal Calcium Level AT [facility] ([facility]) ID Date Data Source [id number] 09/19/2020 05:07:00 AM EST [place] ([facility]) Name Value Range Interpretation Code Description Data Ariane rce(s) Supporting Document(s) white blood count 7.1 10 4.0-10.0 normal White Blood Count [place] ([facility]) red blood count 3.02 10 4.00-5.40 Below low normal Red Blood Coun t [place] ([facility]) hemoglobin 9.5 g/dL 12.0-15.5 Below low normal Hemoglobin [place] ( [facility]) mean corpuscular volume 100.0 fL 80.0-96.0 Above high normal Mean Corpuscular Volume [place] ([facility]) hematocrit 30.2 % 36.0-47.0 Below low normal Hematocrit [place] ( [facility]) mean corpuscular hemoglobin 31.5 pg 27.0-33.0 normal Mean Corpuscular Hemoglobin [place] ([facility]) mean corpuscular HGB conc 31.5 g/dL 32.0-36.5 Below low ryann l Mean Corpuscular HGB Conc [place] ([facility]) red cell distribution width 13.2 % 11.5-14.5 normal Red Cell Distribution Width [place] ([facility]) neutrophils % 62.8 % 36.0-66.0 normal Neutrophils % [place] ( [facility]) platelet count, automated 220 10 150-450 normal Platelet C ount, Automated [facility]) lymph % 17.8 % 24.0-44.0 Below low normal Lymph % [facility]) eos % 6.5 % 0.0-3.0 Above high normal Eos % [facility]) mono % 11.7 % 0.0-5.0 Above high normal [place] % [place] ([facility]) baso % 0.4 % 0.0-1.0 normal Baso % [place] ([facility]) immature granulocyte % 0.8 % 0-3.0 normal Immature Gran ulocyte % [place] ([facility]) nucleated red blood cell % 0.0 % 0-0 normal Nucleated Red Blood Cell % [place] ([facility]) neutrophils # 4.5 10 1.5-8.5 normal Neutrophils # [place] ( [facility]) lymph # 1.3 10 1.5-5.0 Below low normal Lymph # [place] ( [facility]) mono # 0.8 10 0.0-0.8 normal [place] # [place] ([facility]) eos # 0.5 10 0.0-0.5 normal Eos # [place] ([facility]) baso # 0.0 10 0.0-0.2 normal Baso # [place] ([facility]) ID Date Data Source [id number] 09/18/2020 05:08:00 AM EST [place] ([facility]) Name Value Range Interpretation Code Description Data Ariane rce(s) Supporting Document(s) glucose, fasting 89 mg/dL 70-100 normal Glucose, Fasting AT [facility]) blood urea nitrogen 17 mg/dL 7-18 normal Blood Urea Nitro gen [place] ([facility]) glomerular filtration rate > 60.0 >51 normal Glomerula r Filtration Rate [place] ([facility]) creatinine for GFR 0.76 mg/dL 0.55-1.30 normal Creatinine for GF R [place] ([facility]) potassium serum 4.7 mEq/L 3.5-5.1 D Potassium Serum [place] ([facility]) sodium level 140 mEq/L 136-145 normal Sodium Level [place] ([facility]) chloride level 109 mEq/L 98-107 Above high normal Chloride Level [place] ([facility]) anion gap 3 mEq/L 8-16 Below low normal Anion Gap [place] ( [facility]) carbon dioxide level 28 mEq/L 21-32 normal Carbon Dioxide Level [place] ([facility]) calcium level 8.3 mg/dL 8.5-10.1 Below low normal Calcium Level AT [facility] ([facility]) ID Date Data Source [id number] 09/18/2020 05:08:00 AM EST [place] ([facility]) Name Value Range Interpretation Code Description Data Ariane rce(s) Supporting Document(s) white blood count 8.3 10 4.0-10.0 normal White Blood Count [place] ([facility]) red blood count 3.07 10 4.00-5.40 Below low normal Red Blood Coun t [place] ([facility]) hemoglobin 9.7 g/dL 12.0-15.5 Below low normal Hemoglobin [place] ( [facility]) hematocrit 30.2 % 36.0-47.0 Below low normal Hematocrit [place] ( [facility]) mean corpuscular volume 98.4 fL 80.0-96.0 Above high normal Mean Corpuscular Volume [place] ([facility]) mean corpuscular hemoglobin 31.6 pg 27.0-33.0 normal Mean Corpuscular Hemoglobin [place] ([facility]) mean corpuscular HGB conc 32.1 g/dL 32.0-36.5 normal Mean Corpu scular HGB Conc [place] ([facility]) red cell distribution width 13.2 % 11.5-14.5 normal Red Cell Distribution Width [place] ([facility]) platelet count, automated 208 10 150-450 normal Platelet C ount, Automated [place] ([facility]) lymph % 16.5 % 24.0-44.0 Below low normal Lymph % [place] ( [facility]) neutrophils % 65.9 % 36.0-66.0 normal Neutrophils % [place] ( [facility]) mono % 11.3 % 0.0-5.0 Above high normal [place] % [place] ([facility]) eos % 5.5 % 0.0-3.0 Above high normal Eos % [place] ([facility]) baso % 0.4 % 0.0-1.0 normal Baso % [place] ([facility]) nucleated red blood cell % 0.0 % 0-0 normal Nucleated Red Blood Cell % [place] ([facility]) immature granulocyte % 0.4 % 0-3.0 normal Immature Gran ulocyte % [place] ([facility]) neutrophils # 5.5 10 1.5-8.5 normal Neutrophils # [place] ( [facility]) lymph # 1.4 10 1.5-5.0 Below low normal Lymph # [place] ( [facility]) eos # 0.5 10 0.0-0.5 normal Eos # [place] ([facility]) mono # 0.9 10 0.0-0.8 Above high normal [place] # [place] ([facility]) baso # 0.0 10 0.0-0.2 normal Baso # [place] ([facility]) ID Date Data Source [id number] 09/18/2020 05:08:00 AM EST [place] ([facility]) Name Value Range Interpretation Code Description Data Ariane rce(s) Supporting Document(s) glucose, fasting 89 mg/dL 70-100 normal Glucose, Fasting AT [facility]) blood urea nitrogen 17 mg/dL 7-18 normal Blood Urea Nitro gen [place] ([facility]) creatinine for GFR 0.76 mg/dL 0.55-1.30 normal Creatinine for GF R [place] ([facility]) glomerular filtration rate > 60.0 >51 normal Glomerula r Filtration Rate [place] ([facility]) potassium serum 4.7 mEq/L 3.5-5.1 D Potassium Serum [place] ([facility]) sodium level 140 mEq/L 136-145 normal Sodium Level [place] (No [facility]) chloride level 109 mEq/L 98-107 Above high normal Chloride Level [place] ([facility]) carbon dioxide level 28 mEq/L 21-32 normal Carbon Dioxide Level [place] ([facility]) anion gap 3 mEq/L 8-16 Below low normal Anion Gap [place] ( [facility]) calcium level 8.3 mg/dL 8.5-10.1 Below low normal Calcium Level AT [facility] ([facility]) ID Date Data Source [id number] 09/18/2020 05:08:00 AM EST [place] ([facility]) Name Value Range Interpretation Code Description Data Ariane rce(s) Supporting Document(s) white blood count 8.3 10 4.0-10.0 normal White Blood Count [place] ([facility]) red blood count 3.07 10 4.00-5.40 Below low normal Red Blood Coun t [place] ([facility]) hemoglobin 9.7 g/dL 12.0-15.5 Below low normal Hemoglobin [place] ( [facility]) hematocrit 30.2 % 36.0-47.0 Below low normal Hematocrit [place] ( [facility]) mean corpuscular volume 98.4 fL 80.0-96.0 Above high normal Mean Corpuscular Volume [place] ([facility]) mean corpuscular hemoglobin 31.6 pg 27.0-33.0 normal Mean Corpuscular Hemoglobin [place] ([facility]) mean corpuscular HGB conc 32.1 g/dL 32.0-36.5 normal Mean Corpu scular HGB Conc [place] ([facility]) red cell distribution width 13.2 % 11.5-14.5 normal Red Cell Distribution Width [place] ([facility]) platelet count, automated 208 10 150-450 normal Platelet C ount, Automated [place] ([facility]) lymph % 16.5 % 24.0-44.0 Below low normal Lymph % [place] ( [facility]) neutrophils % 65.9 % 36.0-66.0 normal Neutrophils % [place] ( [facility]) eos % 5.5 % 0.0-3.0 Above high normal Eos % [place] ([facility]) mono % 11.3 % 0.0-5.0 Above high normal [place] % [place] ([facility]) baso % 0.4 % 0.0-1.0 normal Baso % [place] ([facility]) immature granulocyte % 0.4 % 0-3.0 normal Immature Gran ulocyte % [place] ([facility]) nucleated red blood cell % 0.0 % 0-0 normal Nucleated Red Blood Cell % [place] ([facility]) lymph # 1.4 10 1.5-5.0 Below low normal Lymph # [place] ( [facility]) neutrophils # 5.5 10 1.5-8.5 normal Neutrophils # [place] ( [facility]) mono # 0.9 10 0.0-0.8 Above high normal [place] # [place] ([facility]) eos # 0.5 10 0.0-0.5 normal Eos # [place] ([facility]) baso # 0.0 10 0.0-0.2 normal Baso # [place] ([facility]) ID Date Data Source [id number] 09/18/2020 05:08:00 AM EST [facility]) Name Value Range Interpretation Code Description Data Ariane rce(s) Supporting Document(s) glucose, fasting 89 mg/dL 70-100 normal Glucose, Fasting AT [facility]) blood urea nitrogen 17 mg/dL 7-18 normal Blood Urea Nitro gen [place] ([facility]) creatinine for GFR 0.76 mg/dL 0.55-1.30 normal Creatinine for GF R [place] ([facility]) glomerular filtration rate > 60.0 >51 normal Glomerula r Filtration Rate [place] ([facility]) sodium level 140 mEq/L 136-145 normal Sodium Level [place] ([facility]) potassium serum 4.7 mEq/L 3.5-5.1 D Potassium Serum ATH NA ([facility]) chloride level 109 mEq/L 98-107 Above high normal Chloride Level [place] ([facility]) carbon dioxide level 28 mEq/L 21-32 normal Carbon Dioxide Level [place] ([facility]) anion gap 3 mEq/L 8-16 Below low normal Anion Gap [place] ( [facility]) calcium level 8.3 mg/dL 8.5-10.1 Below low normal Calcium Level AT [facility]) ID Date Data Source [id number] 09/18/2020 05:08:00 AM EST [place] ([facility]) Name Value Range Interpretation Code Description Data Ariane e(s) Supporting Document(s) white blood count 8.3 10 4.0-10.0 normal White Blood Count [place] ([facility]) red blood count 3.07 10 4.00-5.40 Below low normal Red Blood Coun t [place] ([facility]) hemoglobin 9.7 g/dL 12.0-15.5 Below low normal Hemoglobin [place] ( [facility]) hematocrit 30.2 % 36.0-47.0 Below low normal Hematocrit [place] ( [facility]) mean corpuscular volume 98.4 fL 80.0-96.0 Above high normal Mean Corpuscular Volume [place] ([facility]) mean corpuscular hemoglobin 31.6 pg 27.0-33.0 normal Mean Corpuscular Hemoglobin [place] ([facility]) mean corpuscular HGB conc 32.1 g/dL 32.0-36.5 normal Mean Corpu scular HGB Conc [place] ([facility]) red cell distribution width 13.2 % 11.5-14.5 normal Red Cell Distribution Width [place] ([facility]) platelet count, automated 208 10 150-450 normal Platelet C ount, Automated [place] ([facility]) neutrophils % 65.9 % 36.0-66.0 normal Neutrophils % [place] ( [facility]) lymph % 16.5 % 24.0-44.0 Below low normal Lymph % [place] ( [facility]) mono % 11.3 % 0.0-5.0 Above high normal [place] % [place] ([facility]) eos % 5.5 % 0.0-3.0 Above high normal Eos % [place] ([facility]) baso % 0.4 % 0.0-1.0 normal Baso % [place] ([facility]) immature granulocyte % 0.4 % 0-3.0 normal Immature Gran ulocyte % [place] ([facility]) nucleated red blood cell % 0.0 % 0-0 normal Nucleated Red Blood Cell % [place] ([facility]) neutrophils # 5.5 10 1.5-8.5 normal Neutrophils # [place] ( [facility]) lymph # 1.4 10 1.5-5.0 Below low normal Lymph # [place] ( [facility]) mono # 0.9 10 0.0-0.8 Above high normal [place] # [place] ([facility]) eos # 0.5 10 0.0-0.5 normal Eos # [place] ([facility]) baso # 0.0 10 0.0-0.2 normal Baso # [place] ([facility]) ID Date Data Source [id number] 09/18/2020 05:08:00 AM EST [facility]) Name Value Range Interpretation Code Description Data Ariane rce(s) Supporting Document(s) glucose, fasting 89 mg/dL 70-100 normal Glucose, Fasting AT [facility]) blood urea nitrogen 17 mg/dL 7-18 normal Blood Urea Nitro gen [place] ([facility]) glomerular filtration rate > 60.0 >51 normal Glomerula r Filtration Rate [place] ([facility]) creatinine for GFR 0.76 mg/dL 0.55-1.30 normal Creatinine for GF R [place] ([facility]) sodium level 140 mEq/L 136-145 normal Sodium Level [place] [facility] [facility]) potassium serum 4.7 mEq/L 3.5-5.1 D Potassium Serum ATH NA ([facility]) chloride level 109 mEq/L 98-107 Above high normal Chloride Level [place] ([facility]) anion gap 3 mEq/L 8-16 Below low normal Anion Gap [place] ( [facility]) carbon dioxide level 28 mEq/L 21-32 normal Carbon Dioxide Level [place] ([facility]) calcium level 8.3 mg/dL 8.5-10.1 Below low normal Calcium Level AT [facility]) ID Date Data Source [id number] 09/18/2020 05:08:00 AM EST [place] ([facility]) Name Value Range Interpretation Code Description Data Ariane rce(s) Supporting Document(s) white blood count 8.3 10 4.0-10.0 normal White Blood Count [place] ([facility]) red blood count 3.07 10 4.00-5.40 Below low normal Red Blood Coun t [place] ([facility]) hematocrit 30.2 % 36.0-47.0 Below low normal Hematocrit [place] ( [facility]) hemoglobin 9.7 g/dL 12.0-15.5 Below low normal Hemoglobin [place] ( [facility]) mean corpuscular hemoglobin 31.6 pg 27.0-33.0 normal Mean Corpuscular Hemoglobin [place] ([facility]) mean corpuscular volume 98.4 fL 80.0-96.0 Above high normal Mean Corpuscular Volume [place] ([facility]) mean corpuscular HGB conc 32.1 g/dL 32.0-36.5 normal Mean Corpu scular HGB Conc [place] ([facility]) red cell distribution width 13.2 % 11.5-14.5 normal Red Cell Distribution Width [place] ([facility]) platelet count, automated 208 10 150-450 normal Platelet C ount, Automated [facility]) neutrophils % 65.9 % 36.0-66.0 normal Neutrophils % [facility]) lymph % 16.5 % 24.0-44.0 Below low normal Lymph % [facility]) eos % 5.5 % 0.0-3.0 Above high normal Eos % [place] ([facility]) mono % 11.3 % 0.0-5.0 Above high normal [place] % [facility]) immature granulocyte % 0.4 % 0-3.0 normal Immature Gran ulocyte % [facility]) baso % 0.4 % 0.0-1.0 normal Baso % [place] ([facility]) nucleated red blood cell % 0.0 % 0-0 normal Nucleated Red Blood Cell % [place] ([facility]) lymph # 1.4 10 1.5-5.0 Below low normal Lymph # [place] ( [facility]) neutrophils # 5.5 10 1.5-8.5 normal Neutrophils # [place] ( [facility]) eos # 0.5 10 0.0-0.5 normal Eos # [place] ([facility]) mono # 0.9 10 0.0-0.8 Above high normal [place] # [place] ([facility]) baso # 0.0 10 0.0-0.2 normal Baso # [place] ([facility]) ID Date Data Source [id number] 09/17/2020 09:25:00 AM EST [place] ([facility]) Name Value Range Interpretation Code Description Data Ariane rce(s) Supporting Document(s) blood urea nitrogen 12 mg/dL 7-18 normal Blood Urea Nitro gen [place] ([facility]) glucose, fasting 84 mg/dL 70-100 normal Glucose, Fasting AT [facility]) glomerular filtration rate > 60.0 >51 normal Glomerula r Filtration Rate [place] ([facility]) creatinine for GFR 0.86 mg/dL 0.55-1.30 normal Creatinine for GF R [place] ([facility]) potassium serum 3.6 mEq/L 3.5-5.1 normal Potassium Serum ATH NA ([facility]) sodium level 137 mEq/L 136-145 normal Sodium Level [place] ([facility]) chloride level 108 mEq/L 98-107 Above high normal Chloride Level [place] ([facility]) carbon dioxide level 23 mEq/L 21-32 normal Carbon Dioxide Level [place] ([facility]) calcium level 8.0 mg/dL 8.5-10.1 Below low normal Calcium Level AT [facility]) anion gap 6 mEq/L 8-16 Below low normal Anion Gap [place] ( [facility]) ID Date Data Source [id number] 09/17/2020 09:25:00 AM EST [place] ([facility]) Name Value Range Interpretation Code Description Data Ariane rce(s) Supporting Document(s) white blood count 8.7 10 4.0-10.0 normal White Blood Count [place] ([facility]) red blood count 3.19 10 4.00-5.40 Below low normal Red Blood Coun t [place] ([facility]) hemoglobin 9.9 g/dL 12.0-15.5 Below low normal Hemoglobin [place] ( [facility]) hematocrit 32.2 % 36.0-47.0 Below low normal Hematocrit [place] ( [facility]) mean corpuscular volume 100.9 fL 80.0-96.0 Above high normal Mean Corpuscular Volume [place] ([facility]) mean corpuscular hemoglobin 31.0 pg 27.0-33.0 normal Mean Corpuscular Hemoglobin [place] ([facility]) red cell distribution width 13.7 % 11.5-14.5 normal Red Cell Distribution Width [place] ([facility]) mean corpuscular HGB conc 30.7 g/dL 32.0-36.5 Below low ryann l Mean Corpuscular HGB Conc [place] ([facility]) neutrophils % 78.5 % 36.0-66.0 Above high normal Neutrophils % [place] ([facility]) platelet count, automated 201 10 150-450 normal Platelet C ount, Automated [place] ([facility]) lymph % 11.2 % 24.0-44.0 Below low normal Lymph % [place] ( [facility]) mono % 7.1 % 0.0-5.0 Above high normal [place] % [place] ([facility]) eos % 2.0 % 0.0-3.0 normal Eos % [place] ([facility]) baso % 0.5 % 0.0-1.0 normal Baso % [place] ([facility]) immature granulocyte % 0.7 % 0-3.0 normal Immature Gran ulocyte % [place] ([facility]) neutrophils # 6.8 10 1.5-8.5 normal Neutrophils # [place] ( [facility]) nucleated red blood cell % 0.0 % 0-0 normal Nucleated Red Blood Cell % [place] ([facility]) lymph # 1.0 10 1.5-5.0 Below low normal Lymph # [place] ( [facility]) mono # 0.6 10 0.0-0.8 normal [place] # [place] ([facility]) eos # 0.2 10 0.0-0.5 normal Eos # [place] ([facility]) baso # 0.0 10 0.0-0.2 normal Baso # [place] ([facility]) ID Date Data Source [id number] 09/17/2020 09:25:00 AM EST [place] ([facility]) Name Value Range Interpretation Code Description Data Ariane rce(s) Supporting Document(s) glucose, fasting 84 mg/dL 70-100 normal Glucose, Fasting AT [facility]) creatinine for GFR 0.86 mg/dL 0.55-1.30 normal Creatinine for GF R [place] ([facility]) blood urea nitrogen 12 mg/dL 7-18 normal Blood Urea Nitro gen [place] ([facility]) glomerular filtration rate > 60.0 >51 normal Glomerula r Filtration Rate [place] ([facility]) potassium serum 3.6 mEq/L 3.5-5.1 normal Potassium Serum ATH NA ([facility]) sodium level 137 mEq/L 136-145 normal Sodium Level [place] ([facility]) chloride level 108 mEq/L 98-107 Above high normal Chloride Level [place] ([facility]) carbon dioxide level 23 mEq/L 21-32 normal Carbon Dioxide Level [place] ([facility]) anion gap 6 mEq/L 8-16 Below low normal Anion Gap [place] ( [facility]) calcium level 8.0 mg/dL 8.5-10.1 Below low normal Calcium Level AT [facility]) ID Date Data Source [id number] 09/17/2020 09:25:00 AM EST [place] ([facility]) Name Value Range Interpretation Code Description Data Ariane rce(s) Supporting Document(s) white blood count 8.7 10 4.0-10.0 normal White Blood Count [place] ([facility]) red blood count 3.19 10 4.00-5.40 Below low normal Red Blood Coun t [place] ([facility]) hematocrit 32.2 % 36.0-47.0 Below low normal Hematocrit [place] ( [facility]) hemoglobin 9.9 g/dL 12.0-15.5 Below low normal Hemoglobin [place] ( [facility]) mean corpuscular hemoglobin 31.0 pg 27.0-33.0 normal Mean Corpuscular Hemoglobin [place] ([facility]) mean corpuscular volume 100.9 fL 80.0-96.0 Above high normal Mean Corpuscular Volume [place] ([facility]) mean corpuscular HGB conc 30.7 g/dL 32.0-36.5 Below low ryann l Mean Corpuscular HGB Conc [place] ([facility]) red cell distribution width 13.7 % 11.5-14.5 normal Red Cell Distribution Width [place] ([facility]) platelet count, automated 201 10 150-450 normal Platelet C ount, Automated [place] ([facility]) neutrophils % 78.5 % 36.0-66.0 Above high normal Neutrophils % [place] ([facility]) lymph % 11.2 % 24.0-44.0 Below low normal Lymph % [place] ( [facility]) eos % 2.0 % 0.0-3.0 normal Eos % [place] ([facility]) mono % 7.1 % 0.0-5.0 Above high normal [place] % [place] ([facility]) immature granulocyte % 0.7 % 0-3.0 normal Immature Gran ulocyte % [place] ([facility]) baso % 0.5 % 0.0-1.0 normal Baso % [place] ([facility]) neutrophils # 6.8 10 1.5-8.5 normal Neutrophils # [place] ( [facility]) nucleated red blood cell % 0.0 % 0-0 normal Nucleated Red Blood Cell % [place] ([facility]) lymph # 1.0 10 1.5-5.0 Below low normal Lymph # [place] ( [facility]) mono # 0.6 10 0.0-0.8 normal [place] # [place] ([facility]) eos # 0.2 10 0.0-0.5 normal Eos # [place] ([facility]) baso # 0.0 10 0.0-0.2 normal Baso # [place] ([facility]) ID Date Data Source [id number] 09/17/2020 09:25:00 AM EST [place] ([facility]) Name Value Range Interpretation Code Description Data Ariane rce(s) Supporting Document(s) glucose, fasting 84 mg/dL 70-100 normal Glucose, Fasting AT [facility]) blood urea nitrogen 12 mg/dL 7-18 normal Blood Urea Nitro gen [place] ([facility]) creatinine for GFR 0.86 mg/dL 0.55-1.30 normal Creatinine for GF R [place] ([facility]) glomerular filtration rate > 60.0 >51 normal Glomerula r Filtration Rate [place] ([facility]) sodium level 137 mEq/L 136-145 normal Sodium Level [place] ([facility]) potassium serum 3.6 mEq/L 3.5-5.1 normal Potassium Serum ATH NA ([facility]) chloride level 108 mEq/L 98-107 Above high normal Chloride Level [place] ([facility]) carbon dioxide level 23 mEq/L 21-32 normal Carbon Dioxide Level [place] ([facility]) anion gap 6 mEq/L 8-16 Below low normal Anion Gap [place] ( [facility]) calcium level 8.0 mg/dL 8.5-10.1 Below low normal Calcium Level AT [facility]) ID Date Data Source [id number] 09/17/2020 09:25:00 AM EST [place] ([facility]) Name Value Range Interpretation Code Description Data Ariane rce(s) Supporting Document(s) white blood count 8.7 10 4.0-10.0 normal White Blood Count [place] ([facility]) red blood count 3.19 10 4.00-5.40 Below low normal Red Blood Coun t [place] ([facility]) hemoglobin 9.9 g/dL 12.0-15.5 Below low normal Hemoglobin [place] ( [facility]) hematocrit 32.2 % 36.0-47.0 Below low normal Hematocrit [place] ( [facility]) mean corpuscular volume 100.9 fL 80.0-96.0 Above high normal Mean Corpuscular Volume [place] ([facility]) mean corpuscular HGB conc 30.7 g/dL 32.0-36.5 Below low ryann l Mean Corpuscular HGB Conc [place] ([facility]) mean corpuscular hemoglobin 31.0 pg 27.0-33.0 normal Mean Corpuscular Hemoglobin [place] ([facility]) red cell distribution width 13.7 % 11.5-14.5 normal Red Cell Distribution Width [place] ([facility]) platelet count, automated 201 10 150-450 normal Platelet C ount, Automated [place] ([facility]) neutrophils % 78.5 % 36.0-66.0 Above high normal Neutrophils % [place] ([facility]) lymph % 11.2 % 24.0-44.0 Below low normal Lymph % [place] ( [facility]) mono % 7.1 % 0.0-5.0 Above high normal [place] % [place] ([facility]) eos % 2.0 % 0.0-3.0 normal Eos % [place] ([facility]) baso % 0.5 % 0.0-1.0 normal Baso % [place] ([facility]) immature granulocyte % 0.7 % 0-3.0 normal Immature Gran ulocyte % [place] ([facility]) nucleated red blood cell % 0.0 % 0-0 normal Nucleated Red Blood Cell % [place] ([facility]) neutrophils # 6.8 10 1.5-8.5 normal Neutrophils # [place] ( [facility]) lymph # 1.0 10 1.5-5.0 Below low normal Lymph # [place] ( [facility]) mono # 0.6 10 0.0-0.8 normal [place] # [place] ([facility]) eos # 0.2 10 0.0-0.5 normal Eos # [place] ([facility]) baso # 0.0 10 0.0-0.2 normal Baso # [place] ([facility]) ID Date Data Source [id number] 09/17/2020 09:25:00 AM EST [place] ([facility]) Name Value Range Interpretation Code Description Data Ariane rce(s) Supporting Document(s) glucose, fasting 84 mg/dL 70-100 normal Glucose, Fasting AT [facility]) blood urea nitrogen 12 mg/dL 7-18 normal Blood Urea Nitro gen [place] ([facility]) creatinine for GFR 0.86 mg/dL 0.55-1.30 normal Creatinine for GF R [place] ([facility]) sodium level 137 mEq/L 136-145 normal Sodium Level [place] ([facility]) glomerular filtration rate > 60.0 >51 normal Glomerula r Filtration Rate [place] ([facility]) potassium serum 3.6 mEq/L 3.5-5.1 normal Potassium Serum [place] ([facility]) chloride level 108 mEq/L 98-107 Above high normal Chloride Level [place] ([facility]) anion gap 6 mEq/L 8-16 Below low normal Anion Gap [place] ( [facility]) carbon dioxide level 23 mEq/L 21-32 normal Carbon Dioxide Level [place] ([facility]) calcium level 8.0 mg/dL 8.5-10.1 Below low normal Calcium Level AT [facility] ([facility]) ID Date Data Source [id number] 09/17/2020 09:25:00 AM EST [place] ([facility]) Name Value Range Interpretation Code Description Data Ariane rce(s) Supporting Document(s) white blood count 8.7 10 4.0-10.0 normal White Blood Count [place] ([facility]) red blood count 3.19 10 4.00-5.40 Below low normal Red Blood Coun t [place] ([facility]) hemoglobin 9.9 g/dL 12.0-15.5 Below low normal Hemoglobin [place] ( [facility]) mean corpuscular volume 100.9 fL 80.0-96.0 Above high normal Mean Corpuscular Volume [place] ([facility]) hematocrit 32.2 % 36.0-47.0 Below low normal Hematocrit [place] ( [facility]) mean corpuscular hemoglobin 31.0 pg 27.0-33.0 normal Mean Corpuscular Hemoglobin [place] ([facility]) red cell distribution width 13.7 % 11.5-14.5 normal Red Cell Distribution Width [place] ([facility]) mean corpuscular HGB conc 30.7 g/dL 32.0-36.5 Below low ryann l Mean Corpuscular HGB Conc [place] ([facility]) platelet count, automated 201 10 150-450 normal Platelet C ount, Automated [place] ([facility]) neutrophils % 78.5 % 36.0-66.0 Above high normal Neutrophils % [place] ([facility]) mono % 7.1 % 0.0-5.0 Above high normal [place] % [place] ([facility]) lymph % 11.2 % 24.0-44.0 Below low normal Lymph % [place] ( [facility]) eos % 2.0 % 0.0-3.0 normal Eos % [place] ([facility]) immature granulocyte % 0.7 % 0-3.0 normal Immature Gran ulocyte % [place] ([facility]) baso % 0.5 % 0.0-1.0 normal Baso % [place] ([facility]) neutrophils # 6.8 10 1.5-8.5 normal Neutrophils # [place] ( [facility]) nucleated red blood cell % 0.0 % 0-0 normal Nucleated Red Blood Cell % [place] ([facility]) lymph # 1.0 10 1.5-5.0 Below low normal Lymph # [place] ( [facility]) mono # 0.6 10 0.0-0.8 normal [place] # [place] ([facility]) eos # 0.2 10 0.0-0.5 normal Eos # [place] ([facility]) baso # 0.0 10 0.0-0.2 normal Baso # [place] ([facility]) ID Date Data Source [id number] 09/16/2020 01:47:00 PM EST [place] ([facility]) Name Value Range Interpretation Code Description Data Ariane rce(s) Supporting Document(s) vancomycin level trough 17.2 ug/mL 10.0-20.0 normal Vancomycin L evel Trough [place] ([facility]) ID Date Data Source [id number] 09/16/2020 01:47:00 PM EST [place] ([facility]) Name Value Range Interpretation Code Description Data Ariane rce(s) Supporting Document(s) vancomycin level trough 17.2 ug/mL 10.0-20.0 normal Vancomycin L evel Trough [place] ([facility]) ID Date Data Source [id number] 09/16/2020 01:47:00 PM EST [place] ([facility]) Name Value Range Interpretation Code Description Data Ariane rce(s) Supporting Document(s) vancomycin level trough 17.2 ug/mL 10.0-20.0 normal Vancomycin L evel Trough [place] ([facility]) ID Date Data Source [id number] 09/16/2020 01:47:00 PM EST [place] ([facility]) Name Value Range Interpretation Code Description Data Ariane rce(s) Supporting Document(s) vancomycin level trough 17.2 ug/mL 10.0-20.0 normal Vancomycin L evel Trough [place] ([facility]) ID Date Data Source [id number] 09/16/2020 05:16:00 AM EST [place] ([facility]) Name Value Range Interpretation Code Description Data Ariane rce(s) Supporting Document(s) blood urea nitrogen 11 mg/dL 7-18 normal Blood Urea Nitro gen [place] ([facility]) glucose, fasting 101 mg/dL 70-100 Above high normal Glucose, Fas ting [place] ([facility]) glomerular filtration rate > 60.0 >51 normal Glomerula r Filtration Rate [place] ([facility]) creatinine for GFR 0.58 mg/dL 0.55-1.30 normal Creatinine for GF R [place] ([facility]) chloride level 111 mEq/L 98-107 Above high normal Chloride Level [place] ([facility]) sodium level 141 mEq/L 136-145 normal Sodium Level [place] (No [facility]) potassium serum 4.1 mEq/L 3.5-5.1 normal Potassium [facility] carbon dioxide level 23 mEq/L 21-32 normal Carbon Dioxide Level [place] ([facility]) anion gap 7 mEq/L 8-16 Below low normal Anion Gap [place] ( [facility]) calcium level 7.9 mg/dL 8.5-10.1 Below low normal Calcium Level AT [place] ([facility]) ID Date Data Source [id number] 09/16/2020 05:16:00 AM EST [place] ([facility]) Name Value Range Interpretation Code Description Data Ariane rce(s) Supporting Document(s) white blood count 9.9 10 4.0-10.0 normal White Blood Count [place] ([facility]) red blood count 3.20 10 4.00-5.40 Below low normal Red Blood Coun t [place] ([facility]) hematocrit 31.2 % 36.0-47.0 Below low normal Hematocrit [place] ( [facility]) hemoglobin 9.9 g/dL 12.0-15.5 Below low normal Hemoglobin [place] ( [facility]) mean corpuscular volume 97.5 fL 80.0-96.0 Above high normal Mean Corpuscular Volume [place] ([facility]) mean corpuscular hemoglobin 30.9 pg 27.0-33.0 normal Mean Corpuscular Hemoglobin [place] ([facility]) red cell distribution width 13.2 % 11.5-14.5 normal Red Cell Distribution Width [place] ([facility]) mean corpuscular HGB conc 31.7 g/dL 32.0-36.5 Below low ryann l Mean Corpuscular HGB Conc [place] ([facility]) platelet count, automated 238 10 150-450 normal Platelet C ount, Automated [place] ([facility]) neutrophils % 74.0 % 36.0-66.0 Above high normal Neutrophils % [place] ([facility]) mono % 9.1 % 0.0-5.0 Above high normal [place] % [place] ([facility]) lymph % 16.2 % 24.0-44.0 Below low normal Lymph % [place] ( [facility]) eos % 0.0 % 0.0-3.0 normal Eos % [place] ([facility]) baso % 0.3 % 0.0-1.0 normal Baso % [place] ([facility]) immature granulocyte % 0.4 % 0-3.0 normal Immature Gran ulocyte % [place] ([facility]) nucleated red blood cell % 0.0 % 0-0 normal Nucleated Red Blood Cell % [place] ([facility]) neutrophils # 7.3 10 1.5-8.5 normal Neutrophils # [place] ( [facility]) lymph # 1.6 10 1.5-5.0 normal Lymph # [place] ([facility]) mono # 0.9 10 0.0-0.8 Above high normal [place] # [place] ([facility]) eos # 0.0 10 0.0-0.5 normal Eos # [place] ([facility]) baso # 0.0 10 0.0-0.2 normal Baso # [place] ([facility]) ID Date Data Source [id number] 09/16/2020 05:16:00 AM EST [place] ([facility]) Name Value Range Interpretation Code Description Data Ariane rce(s) Supporting Document(s) ABG pH (arterial) 7.375 units 7.350-7.450 normal ABG pH (Arterial ) [place] ([facility]) ABG total CO2 23.5 mEq/L 22.0-29.0 normal ABG Total CO2 [place] ( [facility]) ABG partial pressure CO2 39.0 mmHg 35.0-45.0 normal ABG Partial Pressure CO2 [place] ([facility]) ABG partial pressure O2 149.4 mmHg 75.0-100.0 Above high normal ABG Partial Pressure O2 [place] ([facility]) ABG HCO3 22.3 mEq/L 22.0-26.0 normal Abg Hco3 [place] ([facility]) ABG base excess -2.0-2.0 Below low normal ABG Base Exces s [place] ([facility]) ABG O2 saturation 99.1 % 95.0-99.0 Above high normal ABG O2 Satu ration [place] ([facility]) ABG standard HCO3 22.3 mEq/L 22.0-26.0 normal ABG Standard HCO3 [place] ([facility]) ID Date Data Source [id number] 09/16/2020 05:16:00 AM EST [place] ([facility]) Name Value Range Interpretation Code Description Data Ariane rce(s) Supporting Document(s) glucose, fasting 101 mg/dL 70-100 Above high normal Glucose, Fas ting [place] ([facility]) creatinine for GFR 0.58 mg/dL 0.55-1.30 normal Creatinine for GF R [place] ([facility]) blood urea nitrogen 11 mg/dL 7-18 normal Blood Urea Nitro gen [place] ([facility]) glomerular filtration rate > 60.0 >51 normal Glomerula r Filtration Rate [place] ([facility]) sodium level 141 mEq/L 136-145 normal Sodium Level [place] (No [facility]) chloride level 111 mEq/L 98-107 Above high normal Chloride Level [place] ([facility]) potassium serum 4.1 mEq/L 3.5-5.1 normal Potassium Serum ATH NA ([facility]) carbon dioxide level 23 mEq/L 21-32 normal Carbon Dioxide Level [place] ([facility]) anion gap 7 mEq/L 8-16 Below low normal Anion Gap [place] ( [facility]) calcium level 7.9 mg/dL 8.5-10.1 Below low normal Calcium Level AT [facility] ([facility]) ID Date Data Source [id number] 09/16/2020 05:16:00 AM EST [place] ([facility]) Name Value Range Interpretation Code Description Data Ariane rce(s) Supporting Document(s) red blood count 3.20 10 4.00-5.40 Below low normal Red Blood Coun t [place] ([facility]) white blood count 9.9 10 4.0-10.0 normal White Blood Count [place] ([facility]) hematocrit 31.2 % 36.0-47.0 Below low normal Hematocrit [place] ( [facility]) hemoglobin 9.9 g/dL 12.0-15.5 Below low normal Hemoglobin [place] ( [facility]) mean corpuscular hemoglobin 30.9 pg 27.0-33.0 normal Mean Corpuscular Hemoglobin [place] ([facility]) mean corpuscular volume 97.5 fL 80.0-96.0 Above high normal Mean Corpuscular Volume [place] ([facility]) mean corpuscular HGB conc 31.7 g/dL 32.0-36.5 Below low ryann l Mean Corpuscular HGB Conc [place] ([facility]) red cell distribution width 13.2 % 11.5-14.5 normal Red Cell Distribution Width [place] ([facility]) platelet count, automated 238 10 150-450 normal Platelet C ount, Automated [place] ([facility]) neutrophils % 74.0 % 36.0-66.0 Above high normal Neutrophils % [place] ([facility]) lymph % 16.2 % 24.0-44.0 Below low normal Lymph % [place] ( [facility]) mono % 9.1 % 0.0-5.0 Above high normal [place] % [place] ([facility]) baso % 0.3 % 0.0-1.0 normal Baso % [place] ([facility]) eos % 0.0 % 0.0-3.0 normal Eos % [place] ([facility]) nucleated red blood cell % 0.0 % 0-0 normal Nucleated Red Blood Cell % [place] ([facility]) immature granulocyte % 0.4 % 0-3.0 normal Immature Gran ulocyte % [place] ([facility]) lymph # 1.6 10 1.5-5.0 normal Lymph # [place] ([facility]) mono # 0.9 10 0.0-0.8 Above high normal [place] # [place] ([facility]) neutrophils # 7.3 10 1.5-8.5 normal Neutrophils # [place] ( [facility]) eos # 0.0 10 0.0-0.5 normal Eos # [place] ([facility]) baso # 0.0 10 0.0-0.2 normal Baso # [place] ([facility]) ID Date Data Source [id number] 09/16/2020 05:16:00 AM EST [place] ([facility]) Name Value Range Interpretation Code Description Data Ariane rce(s) Supporting Document(s) ABG pH (arterial) 7.375 units 7.350-7.450 normal ABG pH (Arterial ) [place] ([facility]) ABG partial pressure CO2 39.0 mmHg 35.0-45.0 normal ABG Partial Pressure CO2 [place] ([facility]) ABG partial pressure O2 149.4 mmHg 75.0-100.0 Above high normal ABG Partial Pressure O2 [place] ([facility]) ABG total CO2 23.5 mEq/L 22.0-29.0 normal ABG Total CO2 [place] ( [facility]) ABG HCO3 22.3 mEq/L 22.0-26.0 normal Abg Hco3 [place] ([facility]) ABG base excess -2.0-2.0 Below low normal ABG Base Exces s [place] ([facility]) ABG standard HCO3 22.3 mEq/L 22.0-26.0 normal ABG Standard HCO3 [place] ([facility]) ABG O2 saturation 99.1 % 95.0-99.0 Above high normal ABG O2 Satu ration [place] ([facility]) ID Date Data Source [id number] 09/16/2020 05:16:00 AM EST [place] ([facility]) Name Value Range Interpretation Code Description Data Ariane rce(s) Supporting Document(s) glucose, fasting 101 mg/dL 70-100 Above high normal Glucose, Fas ting [place] ([facility]) blood urea nitrogen 11 mg/dL 7-18 normal Blood Urea Nitro gen [place] ([facility]) creatinine for GFR 0.58 mg/dL 0.55-1.30 normal Creatinine for GF R [place] ([facility]) glomerular filtration rate > 60.0 >51 normal Glomerula r Filtration Rate [place] ([facility]) sodium level 141 mEq/L 136-145 normal Sodium Level [place] (No [facility]) chloride level 111 mEq/L 98-107 Above high normal Chloride Level [place] ([facility]) potassium serum 4.1 mEq/L 3.5-5.1 normal Potassium Serum ATH NA ([facility]) anion gap 7 mEq/L 8-16 Below low normal Anion Gap [place] ( [facility]) carbon dioxide level 23 mEq/L 21-32 normal Carbon Dioxide Level [place] ([facility]) calcium level 7.9 mg/dL 8.5-10.1 Below low normal Calcium Level AT [facility] ([facility]) ID Date Data Source [id number] 09/16/2020 05:16:00 AM EST [place] ([facility]) Name Value Range Interpretation Code Description Data Ariane rce(s) Supporting Document(s) white blood count 9.9 10 4.0-10.0 normal White Blood Count [place] ([facility]) red blood count 3.20 10 4.00-5.40 Below low normal Red Blood Coun t [place] ([facility]) hematocrit 31.2 % 36.0-47.0 Below low normal Hematocrit [place] ( [facility]) hemoglobin 9.9 g/dL 12.0-15.5 Below low normal Hemoglobin [place] ( [facility]) mean corpuscular hemoglobin 30.9 pg 27.0-33.0 normal Mean Corpuscular Hemoglobin [place] ([facility]) mean corpuscular volume 97.5 fL 80.0-96.0 Above high normal Mean Corpuscular Volume [place] ([facility]) mean corpuscular HGB conc 31.7 g/dL 32.0-36.5 Below low ryann l Mean Corpuscular HGB Conc [place] ([facility]) red cell distribution width 13.2 % 11.5-14.5 normal Red Cell Distribution Width [place] ([facility]) neutrophils % 74.0 % 36.0-66.0 Above high normal Neutrophils % [place] ([facility]) platelet count, automated 238 10 150-450 normal Platelet C ount, Automated [place] ([facility]) lymph % 16.2 % 24.0-44.0 Below low normal Lymph % [place] ( [facility]) mono % 9.1 % 0.0-5.0 Above high normal [place] % [place] ([facility]) baso % 0.3 % 0.0-1.0 normal Baso % [place] ([facility]) eos % 0.0 % 0.0-3.0 normal Eos % [place] ([facility]) nucleated red blood cell % 0.0 % 0-0 normal Nucleated Red Blood Cell % [place] ([facility]) immature granulocyte % 0.4 % 0-3.0 normal Immature Gran ulocyte % [place] ([facility]) neutrophils # 7.3 10 1.5-8.5 normal Neutrophils # [place] ( [facility]) lymph # 1.6 10 1.5-5.0 normal Lymph # [place] ([facility]) mono # 0.9 10 0.0-0.8 Above high normal [place] # [place] ([facility]) eos # 0.0 10 0.0-0.5 normal Eos # [place] ([facility]) baso # 0.0 10 0.0-0.2 normal Baso # [place] ([facility]) ID Date Data Source [id number] 09/16/2020 05:16:00 AM EST [place] ([facility]) Name Value Range Interpretation Code Description Data Ariane rce(s) Supporting Document(s) ABG pH (arterial) 7.375 units 7.350-7.450 normal ABG pH (Arterial ) [place] ([facility]) ABG partial pressure CO2 39.0 mmHg 35.0-45.0 normal ABG Partial Pressure CO2 [place] ([facility]) ABG partial pressure O2 149.4 mmHg 75.0-100.0 Above high normal ABG Partial Pressure O2 [place] ([facility]) ABG total CO2 23.5 mEq/L 22.0-29.0 normal ABG Total CO2 [place] ( [facility]) ABG HCO3 22.3 mEq/L 22.0-26.0 normal Abg Hco3 [facility]) ABG base excess -2.0-2.0 Below low normal ABG Base Exces s [place] ([facility]) ABG O2 saturation 99.1 % 95.0-99.0 Above high normal ABG O2 Satu ration [place] ([facility]) ABG standard HCO3 22.3 mEq/L 22.0-26.0 normal ABG Standard HCO3 [place] ([facility]) ID Date Data Source [id number] 09/16/2020 05:16:00 AM EST [place] ([facility]) Name Value Range Interpretation Code Description Data Ariane rce(s) Supporting Document(s) glucose, fasting 101 mg/dL 70-100 Above high normal Glucose, Fas ting [place] ([facility]) blood urea nitrogen 11 mg/dL 7-18 normal Blood Urea Nitro gen [place] ([facility]) creatinine for GFR 0.58 mg/dL 0.55-1.30 normal Creatinine for GF R [place] ([facility]) potassium serum 4.1 mEq/L 3.5-5.1 normal Potassium Serum ATHE NA ([facility]) glomerular filtration rate > 60.0 >51 normal Glomerula r Filtration Rate [place] ([facility]) sodium level 141 mEq/L 136-145 normal Sodium Level [place] (No [facility]) carbon dioxide level 23 mEq/L 21-32 normal Carbon Dioxide Level [place] ([facility]) chloride level 111 mEq/L 98-107 Above high normal Chloride Level [place] ([facility]) anion gap 7 mEq/L 8-16 Below low normal Anion Gap [place] ( [facility]) calcium level 7.9 mg/dL 8.5-10.1 Below low normal Calcium Level AT [facility]) ID Date Data Source [id number] 09/16/2020 05:16:00 AM EST [facility]) Name Value Range Interpretation Code Description Data Ariane rce(s) Supporting Document(s) white blood count 9.9 10 4.0-10.0 normal White Blood Count [place] ([facility]) red blood count 3.20 10 4.00-5.40 Below low normal Red Blood Coun t [place] ([facility]) hematocrit 31.2 % 36.0-47.0 Below low normal Hematocrit [place] ( [facility]) hemoglobin 9.9 g/dL 12.0-15.5 Below low normal Hemoglobin [place] ( [facility]) mean corpuscular HGB conc 31.7 g/dL 32.0-36.5 Below low ryann l Mean Corpuscular HGB Conc [place] ([facility]) mean corpuscular volume 97.5 fL 80.0-96.0 Above high normal Mean Corpuscular Volume [place] ([facility]) mean corpuscular hemoglobin 30.9 pg 27.0-33.0 normal Mean Corpuscular Hemoglobin [place] ([facility]) platelet count, automated 238 10 150-450 normal [facility], [facility] red cell distribution width 13.2 % 11.5-14.5 normal Red Cell Distribution Width [facility]) neutrophils % 74.0 % 36.0-66.0 Above high normal Neutrophils % A [place] [facility]) mono % 9.1 % 0.0-5.0 Above high normal [place] % [place] ([facility]) lymph % 16.2 % 24.0-44.0 Below low normal Lymph % [place] ( [facility]) eos % 0.0 % 0.0-3.0 normal Eos % [place] ([facility]) baso % 0.3 % 0.0-1.0 normal Baso % [place] ([facility]) nucleated red blood cell % 0.0 % 0-0 normal Nucleated Red Blood Cell % [place] ([facility]) immature granulocyte % 0.4 % 0-3.0 normal Immature Gran ulocyte % [place] ([facility]) neutrophils # 7.3 10 1.5-8.5 normal Neutrophils # [place] ( [facility]) mono # 0.9 10 0.0-0.8 Above high normal [place] # [place] ([facility]) lymph # 1.6 10 1.5-5.0 normal Lymph # [place] ([facility]) baso # 0.0 10 0.0-0.2 normal Baso # [place] ([facility]) eos # 0.0 10 0.0-0.5 normal Eos # [place] ([facility]) ID Date Data Source [id number] 09/16/2020 05:16:00 AM EST [place] ([facility]) Name Value Range Interpretation Code Description Data Ariane rce(s) Supporting Document(s) ABG pH (arterial) 7.375 units 7.350-7.450 normal ABG pH (Arterial ) [place] ([facility]) ABG partial pressure O2 149.4 mmHg 75.0-100.0 Above high normal ABG Partial Pressure O2 [place] ([facility]) ABG partial pressure CO2 39.0 mmHg 35.0-45.0 normal ABG Partial Pressure CO2 [place] ([facility]) ABG HCO3 22.3 mEq/L 22.0-26.0 normal Abg Hco3 [place] ([facility]) ABG total CO2 23.5 mEq/L 22.0-29.0 normal ABG Total CO2 [place] ( [facility]) ABG standard HCO3 22.3 mEq/L 22.0-26.0 normal ABG Standard HCO3 [place] ([facility]) ABG base excess -2.0-2.0 Below low normal ABG Base Exces s [place] ([facility]) ABG O2 saturation 99.1 % 95.0-99.0 Above high normal ABG O2 Satu ration [place] ([facility]) ID Date Data Source [id number] 09/15/2020 11:50:00 AM EST [place] ([facility]) Name Value Range Interpretation Code Description Data Ariane rce(s) Supporting Document(s) blood urea nitrogen 15 mg/dL 7-18 normal Blood Urea Nitro gen [place] ([facility]) glucose, fasting 146 mg/dL 70-100 Above high normal Glucose, Fas ting [place] ([facility]) glomerular filtration rate > 60.0 >51 normal Glomerula r Filtration Rate [place] ([facility]) creatinine for GFR 0.60 mg/dL 0.55-1.30 normal Creatinine for GF R [place] ([facility]) sodium level 137 mEq/L 136-145 normal Sodium Level [place] (No [facility]) potassium serum 4.1 mEq/L 3.5-5.1 normal Potassium Serum ATH NA ([facility]) chloride level 110 mEq/L 98-107 Above high normal Chloride Level [place] ([facility]) carbon dioxide level 23 mEq/L 21-32 normal Carbon Dioxide Level [place] ([facility]) calcium level 8.3 mg/dL 8.5-10.1 Below low normal Calcium Level AT [place] [facility]) anion gap 4 mEq/L 8-16 Below low normal Anion Gap [place] ( [facility]) ID Date Data Source [id number] 09/15/2020 11:50:00 AM EST [place] ([facility]) Name Value Range Interpretation Code Description Data Ariane rce(s) Supporting Document(s) ABG pH (arterial) 7.266 units 7.350-7.450 Below low normal ABG pH (Ar terial) [place] ([facility]) ABG partial pressure CO2 47.1 mmHg 35.0-45.0 Above high ryann l ABG Partial Pressure CO2 [place] ([facility]) ABG partial pressure O2 76.3 mmHg 75.0-100.0 normal ABG Partial Pressure O2 [place] ([facility]) ABG HCO3 20.9 mEq/L 22.0-26.0 Below low normal Abg Hco3 [place] ( [facility]) ABG total CO2 22.4 mEq/L 22.0-29.0 normal ABG Total CO2 [place] ( [facility]) ABG base excess -2.0-2.0 Below low normal ABG Base Exces s [place] ([facility]) ABG standard HCO3 19.5 mEq/L 22.0-26.0 Below low normal ABG Standard HCO3 [place] ([facility]) ABG O2 saturation 93.8 % 95.0-99.0 Below low normal ABG O2 Satur ation [place] ([facility]) ID Date Data Source [id number] 09/15/2020 11:50:00 AM EST [place] ([facility]) Name Value Range Interpretation Code Description Data Ariane rce(s) Supporting Document(s) red blood count 3.79 10 4.00-5.40 Below low normal Red Blood Coun t [place] ([facility]) white blood count 14.6 10 4.0-10.0 Above high normal White Blood Count [place] ([facility]) hematocrit 36.9 % 36.0-47.0 normal Hematocrit [place] ([facility]) hemoglobin 12.2 g/dL 12.0-15.5 normal Hemoglobin [place] ([facility]) mean corpuscular volume 97.4 fL 80.0-96.0 Above high normal Mean Corpuscular Volume [place] ([facility]) mean corpuscular hemoglobin 32.2 pg 27.0-33.0 normal Mean Corpuscular Hemoglobin [place] ([facility]) mean corpuscular HGB conc 33.1 g/dL 32.0-36.5 normal Mean Corpu scular HGB Conc [place] ([facility]) red cell distribution width 13.2 % 11.5-14.5 normal Red Cell Distribution Width [place] ([facility]) platelet count, automated 239 10 150-450 normal Platelet C ount, Automated [place] ([facility]) lymph % 4.2 % 24.0-44.0 Below low normal Lymph % [place] ( [facility]) neutrophils % 93.1 % 36.0-66.0 Above high normal Neutrophils % [place] ([facility]) mono % 1.6 % 0.0-5.0 normal [place] % [place] ([facility]) eos % 0.1 % 0.0-3.0 normal Eos % [place] ([facility]) baso % 0.5 % 0.0-1.0 normal Baso % [place] ([facility]) nucleated red blood cell % 0.0 % 0-0 normal Nucleated Red Blood Cell % [place] ([facility]) immature granulocyte % 0.5 % 0-3.0 normal Immature Gran ulocyte % [place] ([facility]) mono # 0.2 10 0.0-0.8 normal [place] # [place] ([facility]) lymph # 0.6 10 1.5-5.0 Below low normal Lymph # [place] ( [facility]) neutrophils # 13.7 10 1.5-8.5 Above high normal Neutrophils # [place] ([facility]) baso # 0.1 10 0.0-0.2 normal Baso # [place] ([facility]) eos # 0.0 10 0.0-0.5 normal Eos # [place] ([facility]) ID Date Data Source [id number] 09/15/2020 11:50:00 AM EST [place] ([facility]) Name Value Range Interpretation Code Description Data Ariane rce(s) Supporting Document(s) creatinine for GFR 0.60 mg/dL 0.55-1.30 normal Creatinine for GF R [place] ([facility]) glucose, fasting 146 mg/dL 70-100 Above high normal Glucose, Fas ting [place] ([facility]) blood urea nitrogen 15 mg/dL 7-18 normal Blood Urea Nitro gen [place] ([facility]) sodium level 137 mEq/L 136-145 normal Sodium Level [place] (No [facility]) glomerular filtration rate > 60.0 >51 normal Glomerula r Filtration Rate [place] ([facility]) potassium serum 4.1 mEq/L 3.5-5.1 normal Potassium Serum ATHE [place] ([facility]) chloride level 110 mEq/L 98-107 Above high normal Chloride Level [place] ([facility]) anion gap 4 mEq/L 8-16 Below low normal Anion Gap [place] ( [facility]) carbon dioxide level 23 mEq/L 21-32 normal Carbon Dioxide Level [place] ([facility]) calcium level 8.3 mg/dL 8.5-10.1 Below low normal Calcium Level AT [facility]) ID Date Data Source [id number] 09/15/2020 11:50:00 AM EST [facility]) Name Value Range Interpretation Code Description Data Ariane rce(s) Supporting Document(s) ABG partial pressure O2 76.3 mmHg 75.0-100.0 normal ABG Partial Pressure O2 [place] ([facility]) ABG pH (arterial) 7.266 units 7.350-7.450 Below low normal ABG pH (Ar terial) [place] ([facility]) ABG partial pressure CO2 47.1 mmHg 35.0-45.0 Above high ryann l ABG Partial Pressure CO2 [place] ([facility]) ABG HCO3 20.9 mEq/L 22.0-26.0 Below low normal Abg Hco3 [place] ( [facility]) ABG total CO2 22.4 mEq/L 22.0-29.0 normal ABG Total CO2 [place] ( [facility]) ABG standard HCO3 19.5 mEq/L 22.0-26.0 Below low normal ABG Standard HCO3 [place] ([facility]) ABG base excess -2.0-2.0 Below low normal ABG Base Exces s [place] ([facility]) ABG O2 saturation 93.8 % 95.0-99.0 Below low normal ABG O2 Satur ation [place] ([facility]) ID Date Data Source [id number] 09/15/2020 11:50:00 AM EST [place] ([facility]) Name Value Range Interpretation Code Description Data Ariane rce(s) Supporting Document(s) white blood count 14.6 10 4.0-10.0 Above high normal White Blood Count [place] ([facility]) red blood count 3.79 10 4.00-5.40 Below low normal Red Blood Coun t [place] ([facility]) hemoglobin 12.2 g/dL 12.0-15.5 normal Hemoglobin [place] ([facility]) hematocrit 36.9 % 36.0-47.0 normal Hematocrit [place] ([facility]) mean corpuscular volume 97.4 fL 80.0-96.0 Above high normal Mean Corpuscular Volume [place] ([facility]) mean corpuscular HGB conc 33.1 g/dL 32.0-36.5 normal Mean Corpu scular HGB Conc [place] ([facility]) mean corpuscular hemoglobin 32.2 pg 27.0-33.0 normal Mean Corpuscular Hemoglobin [place] ([facility]) platelet count, automated 239 10 150-450 normal Platelet C ount, Automated [place] ([facility]) neutrophils % 93.1 % 36.0-66.0 Above high normal Neutrophils % [place] ([facility]) red cell distribution width 13.2 % 11.5-14.5 normal Red Cell Distribution Width [place] ([facility]) eos % 0.1 % 0.0-3.0 normal Eos % [place] ([facility]) lymph % 4.2 % 24.0-44.0 Below low normal Lymph % [place] ( [facility]) mono % 1.6 % 0.0-5.0 normal [place] % [place] ([facility]) immature granulocyte % 0.5 % 0-3.0 normal Immature Gran ulocyte % [place] ([facility]) nucleated red blood cell % 0.0 % 0-0 normal Nucleated Red Blood Cell % [place] ([facility]) baso % 0.5 % 0.0-1.0 normal Baso % [place] ([facility]) neutrophils # 13.7 10 1.5-8.5 Above high normal Neutrophils # A [place] ([facility]) lymph # 0.6 10 1.5-5.0 Below low normal Lymph # [place] ( [facility]) mono # 0.2 10 0.0-0.8 normal [place] # [place] ([facility]) baso # 0.1 10 0.0-0.2 normal Baso # [place] ([facility]) eos # 0.0 10 0.0-0.5 normal Eos # [place] ([facility]) ID Date Data Source [id number] 09/15/2020 11:50:00 AM EST [place] ([facility]) Name Value Range Interpretation Code Description Data Ariane rce(s) Supporting Document(s) glucose, fasting 146 mg/dL 70-100 Above high normal Glucose, Fas ting [place] ([facility]) blood urea nitrogen 15 mg/dL 7-18 normal Blood Urea Nitro gen [place] ([facility]) creatinine for GFR 0.60 mg/dL 0.55-1.30 normal Creatinine for GF R [place] ([facility]) glomerular filtration rate > 60.0 >51 normal Glomerula r Filtration Rate [place] ([facility]) sodium level 137 mEq/L 136-145 normal Sodium Level [place] (No [facility]) potassium serum 4.1 mEq/L 3.5-5.1 normal Potassium Serum ATH NA ([facility]) chloride level 110 mEq/L 98-107 Above high normal Chloride Level [place] ([facility]) carbon dioxide level 23 mEq/L 21-32 normal Carbon Dioxide Level [place] ([facility]) calcium level 8.3 mg/dL 8.5-10.1 Below low normal Calcium Level AT [place] ([facility]) anion gap 4 mEq/L 8-16 Below low normal Anion Gap [place] ( [facility]) ID Date Data Source [id number] 09/15/2020 11:50:00 AM EST [place] ([facility]) Name Value Range Interpretation Code Description Data Ariane rce(s) Supporting Document(s) ABG pH (arterial) 7.266 units 7.350-7.450 Below low normal ABG pH (Ar terial) [place] ([facility]) ABG partial pressure O2 76.3 mmHg 75.0-100.0 normal ABG Partial Pressure O2 [place] ([facility]) ABG partial pressure CO2 47.1 mmHg 35.0-45.0 Above high ryann l ABG Partial Pressure CO2 [place] ([facility]) ABG base excess -2.0-2.0 Below low normal ABG Base Exces s [place] ([facility]) ABG total CO2 22.4 mEq/L 22.0-29.0 normal ABG Total CO2 [place] ( [facility]) ABG HCO3 20.9 mEq/L 22.0-26.0 Below low normal Abg Hco3 [place] ( [facility]) ABG O2 saturation 93.8 % 95.0-99.0 Below low normal ABG O2 Satur ation [place] ([facility]) ABG standard HCO3 19.5 mEq/L 22.0-26.0 Below low normal ABG Standard HCO3 [place] ([facility]) ID Date Data Source [id number] 09/15/2020 11:50:00 AM EST [place] ([facility]) Name Value Range Interpretation Code Description Data Ariane rce(s) Supporting Document(s) red blood count 3.79 10 4.00-5.40 Below low normal Red Blood Coun t [place] ([facility]) white blood count 14.6 10 4.0-10.0 Above high normal White Blood Count [place] ([facility]) hemoglobin 12.2 g/dL 12.0-15.5 normal Hemoglobin [place] ([facility]) hematocrit 36.9 % 36.0-47.0 normal Hematocrit [place] ([facility]) mean corpuscular HGB conc 33.1 g/dL 32.0-36.5 normal Mean Corpu scular HGB Conc [place] ([facility]) mean corpuscular hemoglobin 32.2 pg 27.0-33.0 normal Mean Corpuscular Hemoglobin [place] ([facility]) mean corpuscular volume 97.4 fL 80.0-96.0 Above high normal Mean Corpuscular Volume [place] ([facility]) platelet count, automated 239 10 150-450 normal Platelet C ount, Automated [place] ([facility]) red cell distribution width 13.2 % 11.5-14.5 normal Red Cell Distribution Width [place] ([facility]) lymph % 4.2 % 24.0-44.0 Below low normal Lymph % [place] ( [facility]) neutrophils % 93.1 % 36.0-66.0 Above high normal Neutrophils % [facility] ([facility]) mono % 1.6 % 0.0-5.0 normal [place] % [place] ([facility]) eos % 0.1 % 0.0-3.0 normal Eos % [place] ([facility]) baso % 0.5 % 0.0-1.0 normal Baso % [place] ([facility]) immature granulocyte % 0.5 % 0-3.0 normal Immature Gran ulocyte % [place] ([facility]) neutrophils # 13.7 10 1.5-8.5 Above high normal Neutrophils # A [facility] ([facility]) nucleated red blood cell % 0.0 % 0-0 normal Nucleated Red Blood Cell % [place] ([facility]) eos # 0.0 10 0.0-0.5 normal Eos # [place] ([facility]) mono # 0.2 10 0.0-0.8 normal [place] # [place] ([facility]) lymph # 0.6 10 1.5-5.0 Below low normal Lymph # [place] ( [facility]) baso # 0.1 10 0.0-0.2 normal Baso # [place] ([facility]) ID Date Data Source [id number] 09/15/2020 11:50:00 AM [place] ([facility]) Name Value Range Interpretation Code Description Data Ariane rce(s) Supporting Document(s) glucose, fasting 146 mg/dL 70-100 Above high normal Glucose, Fas ting [place] ([facility]) blood urea nitrogen 15 mg/dL 7-18 normal Blood Urea Nitro gen [place] ([facility]) creatinine for GFR 0.60 mg/dL 0.55-1.30 normal Creatinine for GF R [place] ([facility]) glomerular filtration rate > 60.0 >51 normal Glomerula r Filtration Rate [place] ([facility]) sodium level 137 mEq/L 136-145 normal Sodium Level [place] (No [facility]) potassium serum 4.1 mEq/L 3.5-5.1 normal Potassium Serum [place] ([facility]) chloride level 110 mEq/L 98-107 Above high normal Chloride Level [place] ([facility]) carbon dioxide level 23 mEq/L 21-32 normal Carbon Dioxide Level [place] ([facility]) anion gap 4 mEq/L 8-16 Below low normal Anion Gap [place] ( [facility]) calcium level 8.3 mg/dL 8.5-10.1 Below low normal Calcium Level AT [facility]) ID Date Data Source [id number] 09/15/2020 11:50:00 AM EST [place] ([facility]) Name Value Range Interpretation Code Description Data Ariane rce(s) Supporting Document(s) ABG pH (arterial) 7.266 units 7.350-7.450 Below low normal ABG pH (Ar terial) [place] ([facility]) ABG partial pressure CO2 47.1 mmHg 35.0-45.0 Above high ryann l ABG Partial Pressure CO2 [place] ([facility]) ABG partial pressure O2 76.3 mmHg 75.0-100.0 normal ABG Partial Pressure O2 [place] ([facility]) ABG total CO2 22.4 mEq/L 22.0-29.0 normal ABG Total CO2 [place] ( [facility]) ABG HCO3 20.9 mEq/L 22.0-26.0 Below low normal Abg Hco3 [place] ( [facility]) ABG base excess -2.0-2.0 Below low normal ABG Base Exces s [place] ([facility]) ABG standard HCO3 19.5 mEq/L 22.0-26.0 Below low normal ABG Standard HCO3 [place] ([facility]) ABG O2 saturation 93.8 % 95.0-99.0 Below low normal ABG O2 Satur ation [place] ([facility]) ID Date Data Source [id number] 09/15/2020 11:50:00 AM EST [facility]) Name Value Range Interpretation Code Description Data Ariane rce(s) Supporting Document(s) white blood count 14.6 10 4.0-10.0 Above high normal White Blood Count [place] ([facility]) red blood count 3.79 10 4.00-5.40 Below low normal Red Blood Coun t [place] ([facility]) hemoglobin 12.2 g/dL 12.0-15.5 normal Hemoglobin [place] ([facility]) hematocrit 36.9 % 36.0-47.0 normal Hematocrit [facility]) mean corpuscular volume 97.4 fL 80.0-96.0 Above high normal Mean Corpuscular Volume [place] ([facility]) mean corpuscular hemoglobin 32.2 pg 27.0-33.0 normal Mean Corpuscular Hemoglobin [place] ([facility]) mean corpuscular HGB conc 33.1 g/dL 32.0-36.5 normal Mean Corpu scular HGB Conc [place] ([facility]) red cell distribution width 13.2 % 11.5-14.5 normal Red Cell Distribution Width [place] ([facility]) platelet count, automated 239 10 150-450 normal Platelet C ount, Automated [place] ([facility]) lymph % 4.2 % 24.0-44.0 Below low normal Lymph % [place] ( [facility]) neutrophils % 93.1 % 36.0-66.0 Above high normal Neutrophils % A [place] ([facility]) eos % 0.1 % 0.0-3.0 normal Eos % [place] ([facility]) mono % 1.6 % 0.0-5.0 normal [place] % [place] ([facility]) baso % 0.5 % 0.0-1.0 normal Baso % [place] ([facility]) nucleated red blood cell % 0.0 % 0-0 normal Nucleated Red Blood Cell % [place] ([facility]) immature granulocyte % 0.5 % 0-3.0 normal Immature Gran ulocyte % [place] ([facility]) lymph # 0.6 10 1.5-5.0 Below low normal Lymph # [place] ( [facility]) neutrophils # 13.7 10 1.5-8.5 Above high normal Neutrophils # A [place] ([facility]) mono # 0.2 10 0.0-0.8 normal [place] # [place] ([facility]) baso # 0.1 10 0.0-0.2 normal Baso # [place] ([facility]) eos # 0.0 10 0.0-0.5 normal Eos # [place] ([facility]) ID Date Data Source [id number] 09/15/2020 06:25:00 AM EST [place] ([facility]) Name Value Range Interpretation Code Description Data Ariane rce(s) Supporting Document(s) blood type A positive normal Blood Type [place] ([facility]) Ab screen (indirect ronal)vis negative normal Ab Sc reen (Indirect Ronal)vis [place] ([facility]) ID Date Data Source [id number] 09/15/2020 06:25:00 AM EST [place] ([facility]) Name Value Range Interpretation Code Description Data Ariane rce(s) Supporting Document(s) blood type A positive normal Blood Type [place] ([facility]) Ab screen (indirect ronal)vis negative normal Ab Sc reen (Indirect Ronal)vis [place] ([facility]) ID Date Data Source [id number] 09/15/2020 06:25:00 AM EST [place] ([facility]) Name Value Range Interpretation Code Description Data Ariane rce(s) Supporting Document(s) blood type A positive normal Blood Type [place] ([facility]) Ab screen (indirect ronal)vis negative normal Ab Sc reen (Indirect Ronal)vis [place] ([facility]) ID Date Data Source [id number] 09/15/2020 06:25:00 AM EST [facility]) Name Value Range Interpretation Code Description Data Ariane rce(s) Supporting Document(s) blood type A positive normal Blood Type [place] ([facility]) Ab screen (indirect ronal)vis negative normal Ab Sc reen (Indirect Ronal)vis [place] ([facility]) ID Date Data Source [id number] 09/13/2020 03:00:00 [facility] Name Value Range Interpretation Code Description Data Ariane rce(s) Supporting Document(s) ABG pH (arterial) 7.375 units 7.350-7.450 normal ABG pH (Arterial ) [place] ([facility]) ABG partial pressure CO2 32.0 mmHg 35.0-45.0 Below low normal ABG Partial Pressure CO2 [place] ([facility]) ABG partial pressure O2 88.2 mmHg 75.0-100.0 normal ABG Partial Pressure O2 [place] ([facility]) ABG standard HCO3 19.6 mEq/L 22.0-26.0 Below low normal ABG Standard HCO3 [facility]) ABG total CO2 19.3 mEq/L 22.0-29.0 Below low normal ABG Total CO2 AT [facility]) ABG HCO3 18.3 mEq/L 22.0-26.0 Below low normal Abg Hco3 [place] ( [facility]) ABG base excess -2.0-2.0 Below low normal ABG Base Exces s [place] ([facility]) ABG O2 saturation 97.2 % 95.0-99.0 normal ABG O2 Saturation [place] ([facility]) ID Date Data Source [id number] 09/13/2020 03:00:00 PM EST [place] ([facility]) Name Value Range Interpretation Code Description Data Ariane rce(s) Supporting Document(s) ABG pH (arterial) 7.375 units 7.350-7.450 normal ABG pH (Arterial ) [place] ([facility]) ABG partial pressure CO2 32.0 mmHg 35.0-45.0 Below low normal ABG Partial Pressure CO2 [place] ([facility]) ABG partial pressure O2 88.2 mmHg 75.0-100.0 normal ABG Partial Pressure O2 [place] ([facility]) ABG base excess -2.0-2.0 Below low normal ABG Base Exces s [place] ([facility]) ABG HCO3 18.3 mEq/L 22.0-26.0 Below low normal Abg Hco3 [place] ( [facility]) ABG standard HCO3 19.6 mEq/L 22.0-26.0 Below low normal ABG Standard HCO3 [place] ([facility]) ABG total CO2 19.3 mEq/L 22.0-29.0 Below low normal ABG Total CO2 AT [place] ([facility]) ABG O2 saturation 97.2 % 95.0-99.0 normal ABG O2 Saturation [place] ([facility]) ID Date Data Source [id number] 09/13/2020 03:00:00 PM EST [place] ([facility]) Name Value Range Interpretation Code Description Data Ariane rce(s) Supporting Document(s) ABG partial pressure CO2 32.0 mmHg 35.0-45.0 Below low normal ABG Partial Pressure CO2 [place] ([facility]) ABG pH (arterial) 7.375 units 7.350-7.450 normal ABG pH (Arterial ) [place] ([facility]) ABG standard HCO3 19.6 mEq/L 22.0-26.0 Below low normal ABG Standard HCO3 [place] ([facility]) ABG total CO2 19.3 mEq/L 22.0-29.0 Below low normal ABG Total CO2 AT [facility] ([facility]) ABG HCO3 18.3 mEq/L 22.0-26.0 Below low normal Abg Hco3 [place] ( [facility]) ABG base excess -2.0-2.0 Below low normal ABG Base Exces s [place] ([facility]) ABG partial pressure O2 88.2 mmHg 75.0-100.0 normal ABG Partial Pressure O2 [place] ([facility]) ABG O2 saturation 97.2 % 95.0-99.0 normal ABG O2 Saturation [place] ([facility]) ID Date Data Source [id number] 09/13/2020 03:00:00 PM EST [place] ([facility]) Name Value Range Interpretation Code Description Data Ariane rce(s) Supporting Document(s) ABG pH (arterial) 7.375 units 7.350-7.450 normal ABG pH (Arterial ) [place] ([facility]) ABG partial pressure O2 88.2 mmHg 75.0-100.0 normal ABG Partial Pressure O2 [place] ([facility]) ABG partial pressure CO2 32.0 mmHg 35.0-45.0 Below low normal ABG Partial Pressure CO2 [place] ([facility]) ABG total CO2 19.3 mEq/L 22.0-29.0 Below low normal ABG Total CO2 AT [facility] ([facility]) ABG HCO3 18.3 mEq/L 22.0-26.0 Below low normal Abg Hco3 [place] ( [facility]) ABG standard HCO3 19.6 mEq/L 22.0-26.0 Below low normal ABG Standard HCO3 [place] ([facility]) ABG O2 saturation 97.2 % 95.0-99.0 normal ABG O2 Saturation [place] ([facility]) ABG base excess -2.0-2.0 Below low normal ABG Base Exces s [place] ([facility]) ID Date Data Source [id number] 09/13/2020 03:00:00 PM EST [place] ([facility]) Name Value Range Interpretation Code Description Data Ariane rce(s) Supporting Document(s) ABG partial pressure CO2 32.0 mmHg 35.0-45.0 Below low normal ABG Partial Pressure CO2 [place] ([facility]) ABG pH (arterial) 7.375 units 7.350-7.450 normal ABG pH (Arterial ) [place] ([facility]) ABG partial pressure O2 88.2 mmHg 75.0-100.0 normal ABG Partial Pressure O2 [place] ([facility]) ABG total CO2 19.3 mEq/L 22.0-29.0 Below low normal ABG Total CO2 AT [facility] ([facility]) ABG HCO3 18.3 mEq/L 22.0-26.0 Below low normal Abg Hco3 [place] ( [facility]) ABG base excess -2.0-2.0 Below low normal ABG Base Exces s [place] ([facility]) ABG standard HCO3 19.6 mEq/L 22.0-26.0 Below low normal ABG Standard HCO3 [place] ([facility]) ABG O2 saturation 97.2 % 95.0-99.0 normal ABG O2 Saturation [place] ([facility]) ID Date Data Source [id number] 09/13/2020 03:00:00 PM EST [facility] ([facility] ) Name Value Range Interpretation Code Description Data Ariane rce(s) Supporting Document(s) ABG pH (Arterial) 7.375 units 7.350-7.450 Normal (applie s to non-numeric results) [facility] ([facility], ) ABG Partial Pressure Co2 32.0 mmHg 35.0-45.0 Below low normal [facility] ([facility], ) ABG Partial Pressure O2 88.2 mmHg 75.0-100.0 Normal ( applies to non-numeric results) [facility] ([facility]) ABG Total Co2 19.3 meq/L 22.0-29.0 Below low normal [facility] ([facility]) ABG Base Excess -5.9 Below low normal [facility] ([facility]) ABG Hco3 18.3 meq/L 22.0-26.0 Below low normal [facility] ( [facility]) ABG Standard Hco3 19.6 meq/L 22.0-26.0 Below low normal [facility] ([facility]) ABG O2 Saturation 97.2 % 95.0-99.0 Normal (applies to non-numeri c results) [facility] ([facility]) ID Date Data Source [id number] 09/13/2020 02:21:00 PM EST [place] ([facility]) Name Value Range Interpretation Code Description Data Ariane rce(s) Supporting Document(s) color, urine yellow yellow normal Color, Urine [place] ([facility]) pH,urine 6.0 units 5.0-9.0 normal pH,urine [place] ([facility]) appearance, urine clear clear normal Appearance, Urine [place] ([facility]) protein, urine auto negative negative normal Protein, Urine A uto [place] ([facility]) glucose, urine (UA) auto negative negative normal Glucose, Ur ine (UA) Auto [place] ([facility]) ketone, urine auto negative negative normal Ketone, Urine Aut o [place] ([facility]) specific gravity urine auto 1.002-1.035 normal Specifi c [place] Urine Auto [place] ([facility]) nitrite, urine auto negative negative normal Nitrite, Urine A uto [place] ([facility]) urobilinogen, urine auto 0.2 mg/dL 0.0-2.0 normal Urobilinoge n, Urine Auto [place] ([facility]) bilirubin, urine auto negative negative normal Bilirubin, Uri ne Auto [place] ([facility]) WBC, urine auto 1 /hpf 0-3 normal WBC, Urine Auto [place] ([facility]) leukocyte esterase, urine auto negative negative normal Leukocyte Esterase, Urine Auto [place] ([facility]) RBC, urine auto 5 /hpf 0-3 Above high normal RBC, Urine Au to [place] ([facility]) blood, urine blood negative negative normal Blood, Urine Bloo d [place] ([facility]) squamous epithelial cell ur AU 1 /hpf 0-6 normal Squam ous Epithelial Cell Ur AU [place] ([facility]) bacteria, urine auto negative negative normal Bacteria, Urine Auto [place] ([facility]) mucus, urine small negative normal Mucus, Urine [place] ([facility]) hyaline cast, urine auto 0 /lpf 0-1 normal Hyaline Chris t, Urine Auto [place] ([facility]) ID Date Data Source [id number] 09/13/2020 02:21:00 PM EST [place] ([facility]) Name Value Range Interpretation Code Description Data Ariane rce(s) Supporting Document(s) color, urine yellow yellow normal Color, Urine [place] ([facility]) pH,urine 6.0 units 5.0-9.0 normal pH,urine [place] ([facility]) appearance, urine clear clear normal Appearance, Urine [place] ([facility]) protein, urine auto negative negative normal Protein, Urine A uto [place] ([facility]) ketone, urine auto negative negative normal Ketone, Urine Aut o [place] ([facility]) specific gravity urine auto 1.002-1.035 normal Specifi c [place] Urine Auto [place] ([facility]) glucose, urine (UA) auto negative negative normal Glucose, Ur ine (UA) Auto [place] ([facility]) nitrite, urine auto negative negative normal Nitrite, Urine A uto [place] ([facility]) bilirubin, urine auto negative negative normal Bilirubin, Uri ne Auto [place] ([facility]) urobilinogen, urine auto 0.2 mg/dL 0.0-2.0 normal Urobilinoge n, Urine Auto [place] ([facility]) blood, urine blood negative negative normal Blood, Urine Bloo d [place] ([facility]) WBC, urine auto 1 /hpf 0-3 normal WBC, Urine Auto [place] ([facility]) leukocyte esterase, urine auto negative negative normal Leukocyte Esterase, Urine Auto [place] ([facility]) RBC, urine auto 5 /hpf 0-3 Above high normal RBC, Urine Au to [place] ([facility]) mucus, urine small negative normal Mucus, Urine [place] ([facility]) bacteria, urine auto negative negative normal Bacteria, Urine Auto [place] ([facility]) squamous epithelial cell ur AU 1 /hpf 0-6 normal Squam ous Epithelial Cell Ur AU [place] ([facility]) hyaline cast, urine auto 0 /lpf 0-1 normal Hyaline Chris t, Urine Auto [place] ([facility]) ID Date Data Source [id number] 09/13/2020 02:21:00 PM EST [place] ([facility]) Name Value Range Interpretation Code Description Data Ariane rce(s) Supporting Document(s) appearance, urine clear clear normal Appearance, Urine [place] ([facility]) pH,urine 6.0 units 5.0-9.0 normal pH,urine [place] ([facility]) color, urine yellow yellow normal Color, Urine [place] ([facility]) specific gravity urine auto 1.002-1.035 normal Specifi c [place] Urine Auto [place] ([facility]) protein, urine auto negative negative normal Protein, Urine A uto [place] ([facility]) glucose, urine (UA) auto negative negative normal Glucose, Ur ine (UA) Auto [place] ([facility]) ketone, urine auto negative negative normal Ketone, Urine Aut o [place] ([facility]) nitrite, urine auto negative negative normal Nitrite, Urine A uto [place] ([facility]) leukocyte esterase, urine auto negative negative normal Leukocyte Esterase, Urine Auto [place] ([facility]) urobilinogen, urine auto 0.2 mg/dL 0.0-2.0 normal Urobilinoge n, Urine Auto [place] ([facility]) bilirubin, urine auto negative negative normal Bilirubin, Uri ne Auto [place] ([facility]) WBC, urine auto 1 /hpf 0-3 normal WBC, Urine Auto [facility] ([facility]) bacteria, urine auto negative negative normal Bacteria, Urine Auto [place] ([facility]) blood, urine blood negative negative normal Blood, Urine Bloo d [place] ([facility]) squamous epithelial cell ur AU 1 /hpf 0-6 normal Squam ous Epithelial Cell Ur AU [place] ([facility]) RBC, urine auto 5 /hpf 0-3 Above high normal RBC, Urine Au to [place] ([facility]) hyaline cast, urine auto 0 /lpf 0-1 normal Hyaline Chris t, Urine Auto [place] ([facility]) mucus, urine small negative normal Mucus, Urine [place] ([facility]) ID Date Data Source [id number] 09/13/2020 02:21:00 PM EST [place] ([facility]) Name Value Range Interpretation Code Description Data Ariane rce(s) Supporting Document(s) pH,urine 6.0 units 5.0-9.0 normal pH,urine [place] ([facility]) appearance, urine clear clear normal Appearance, Urine [place] ([facility]) color, urine yellow yellow normal Color, Urine [place] ([facility]) protein, urine auto negative negative normal Protein, Urine A uto [place] ([facility]) glucose, urine (UA) auto negative negative normal Glucose, Ur ine (UA) Auto [place] ([facility]) specific gravity urine auto 1.002-1.035 normal Specifi c [place] Urine Auto [place] ([facility]) bilirubin, urine auto negative negative normal Bilirubin, Uri ne Auto [place] ([facility]) urobilinogen, urine auto 0.2 mg/dL 0.0-2.0 normal Urobilinoge n, Urine Auto [place] ([facility]) ketone, urine auto negative negative normal Ketone, Urine Aut o [place] ([facility]) leukocyte esterase, urine auto negative negative normal Leukocyte Esterase, Urine Auto [place] ([facility]) nitrite, urine auto negative negative normal Nitrite, Urine A uto [place] ([facility]) blood, urine blood negative negative normal Blood, Urine Bloo d [place] ([facility]) WBC, urine auto 1 /hpf 0-3 normal WBC, Urine Auto ATHE NA ([facility]) RBC, urine auto 5 /hpf 0-3 Above high normal RBC, Urine Au to [place] ([facility]) bacteria, urine auto negative negative normal Bacteria, Urine Auto [place] ([facility]) squamous epithelial cell ur AU 1 /hpf 0-6 normal Squam ous Epithelial Cell Ur AU [place] ([facility]) hyaline cast, urine auto 0 /lpf 0-1 normal Hyaline Chris t, Urine Auto [place] ([facility]) mucus, urine small negative normal Mucus, Urine [place] (No [facility]) ID Date Data Source [id number] 09/13/2020 02:21:00 PM EST [place] ([facility]) Name Value Range Interpretation Code Description Data Ariane rce(s) Supporting Document(s) pH,urine 6.0 units 5.0-9.0 normal pH,urine [place] ([facility]) appearance, urine clear clear normal Appearance, Urine [place] ([facility]) color, urine yellow yellow normal Color, Urine [place] ([facility]) specific gravity urine auto 1.002-1.035 normal Specifi c [place] Urine Auto [place] ([facility]) protein, urine auto negative negative normal Protein, Urine A uto [place] ([facility]) ketone, urine auto negative negative normal Ketone, Urine Aut o [place] ([facility]) glucose, urine (UA) auto negative negative normal Glucose, Ur ine (UA) Auto [place] ([facility]) urobilinogen, urine auto 0.2 mg/dL 0.0-2.0 normal Urobilinoge n, Urine Auto [place] ([facility]) bilirubin, urine auto negative negative normal Bilirubin, Uri ne Auto [place] ([facility]) nitrite, urine auto negative negative normal Nitrite, Urine A uto [place] ([facility]) leukocyte esterase, urine auto negative negative normal Leukocyte Esterase, Urine Auto [place] ([facility]) WBC, urine auto 1 /hpf 0-3 normal WBC, Urine Auto ATHE NA ([facility]) blood, urine blood negative negative normal Blood, Urine Bloo d [place] ([facility]) RBC, urine auto 5 /hpf 0-3 Above high normal RBC, Urine Au to [place] ([facility]) mucus, urine small negative normal Mucus, Urine [place] (No [facility]) hyaline cast, urine auto 0 /lpf 0-1 normal Hyaline Chris t, Urine Auto [place] ([facility]) bacteria, urine auto negative negative normal Bacteria, Urine Auto [place] ([facility]) squamous epithelial cell ur AU 1 /hpf 0-6 normal Squam ous Epithelial Cell Ur AU [place] ([facility]) ID Date Data Source [id number] 09/13/2020 02:21:00 PM EST [facility] ([facility], ) Name Value Range Interpretation Code Description Data Ariane rce(s) Supporting Document(s) Appearance, Urine Laboratory test result Normal (applies to non-numeric results) [facility] ([facility] [place], ) Color, Urine Laboratory test result Normal (applies to non -numeric results) [facility] ([facility] [place], ) PH,Urine 6.0 units 5.0-9.0 Normal (applies to non-numeric resul ts) [facility] ([facility] [place], ) Specific [place] Urine Auto 1.019 1.002-1.035 Norm al (applies to non-numeric results) [facility] ([facility] [place], ) Protein, Urine Auto Laboratory test result Ryann l (applies to non-numeric results) [facility] ([facility] [place], ) Glucose, Urine (Ua) Auto Laboratory test result Normal (applies to non-numeric results) [facility] ([facility] [place], ) Urobilinogen, Urine Auto 0.2 mg/dL 0.0-2.0 Normal (applies to non-numeric results) [facility] ([facility] [place], ) Ketone, Urine Auto Laboratory test result Normal (applies to non-numeric results) [facility] ([facility] [place], ) Bilirubin, Urine Auto Laboratory test result Nor mal (applies to non-numeric results) [facility] ([facility] [place], ) Nitrite, Urine Auto Laboratory test result Ryann l (applies to non-numeric results) [facility] ([facility]) Leukocyte Esterase, Urine Auto Laboratory test result Normal (applies to non- numeric results) [facility] ([facility]) Blood, Urine Blood Laboratory test result Normal (applies to non-numeric results) [facility] ([facility]) WBC, Urine Auto 1 /HPF 0-3 Normal (applies to non-numeric results) [facility] ([facility]) RBC, Urine Auto 5 /HPF 0-3 Above high normal [place] ([facility]) Bacteria, Urine Auto Laboratory test result Norm al (applies to non-numeric results) [facility] ([facility]) Squamous Epithelial Cell Ur AU 1 /HPF 0-6 N ormal (applies to non-numeric results) [facility] ([facility]) Mucus, Urine Laboratory test result Normal (applies to non -numeric results) [facility] ([facility]) Hyaline Cast, Urine Auto 0 /LPF 0-1 Normal (applies to non -numeric results) [facility] ([facility]) ID Date Data Source [id number] 09/13/2020 01:20:00 PM EST [place] ([facility]) Name Value Range Interpretation Code Description Data Ariane rce(s) Supporting Document(s) prothrombin time 13.0 seconds 12.5-14.3 normal Prothrombin Time [facility]) INR normal Inr [place] ([facility]) ID Date Data Source [id number] 09/13/2020 01:20:00 PM EST [facility]) Name Value Range Interpretation Code Description Data Ariane rce(s) Supporting Document(s) glucose, fasting 86 mg/dL 70-100 normal Glucose, Fasting AT [facility] ([facility]) glomerular filtration rate > 60.0 >51 normal Glomerula r Filtration Rate [facility]) creatinine for GFR 0.78 mg/dL 0.55-1.30 normal Creatinine for GF R [place] ([facility]) blood urea nitrogen 23 mg/dL 7-18 Above high normal Blood Ure a Nitrogen [place] ([facility]) sodium level 141 mEq/L 136-145 normal Sodium Level [place] ([facility]) potassium serum 4.7 mEq/L 3.5-5.1 normal Potassium Serum ATHE NA ([facility]) chloride level 112 mEq/L 98-107 Above high normal Chloride Level [place] ([facility]) calcium level 8.7 mg/dL 8.5-10.1 normal Calcium Level [place] ( [facility]) anion gap 4 mEq/L 8-16 Below low normal Anion Gap [place] ( [facility]) carbon dioxide level 25 mEq/L 21-32 normal Carbon Dioxide Level [place] ([facility]) ID Date Data Source [id number] 09/13/2020 01:20:00 PM EST [place] ([facility]) Name Value Range Interpretation Code Description Data Ariane rce(s) Supporting Document(s) partial thromboplastin time 27.5 seconds 24.2-38.5 normal Partial Thromboplastin Time [place] ([facility]) ID Date Data Source [id number] 09/13/2020 01:20:00 PM EST [place] ([facility]) Name Value Range Interpretation Code Description Data Ariane rce(s) Supporting Document(s) white blood count 6.2 10 4.0-10.0 normal White Blood Count [place] ([facility]) red blood count 3.93 10 4.00-5.40 Below low normal Red Blood Coun t [place] ([facility]) hemoglobin 12.5 g/dL 12.0-15.5 normal Hemoglobin [place] ([facility]) mean corpuscular volume 99.0 fL 80.0-96.0 Above high normal Mean Corpuscular Volume [place] ([facility]) hematocrit 38.9 % 36.0-47.0 normal Hematocrit [place] ([facility]) red cell distribution width 13.3 % 11.5-14.5 normal Red Cell Distribution Width [place] ([facility]) mean corpuscular hemoglobin 31.8 pg 27.0-33.0 normal Mean Corpuscular Hemoglobin [place] ([facility]) mean corpuscular HGB conc 32.1 g/dL 32.0-36.5 normal Mean Corpu scular HGB Conc [place] ([facility]) platelet count, automated 258 10 150-450 normal Platelet C ount, Automated [place] ([facility]) nucleated red blood cell % 0.0 % 0-0 normal Nucleated Red Blood Cell % [place] ([facility]) ID Date Data Source [id number] 09/13/2020 01:20:00 PM EST [place] ([facility]) Name Value Range Interpretation Code Description Data Ariane rce(s) Supporting Document(s) carboxyhemoglobin 1.8 % 0.0-1.5 Above high normal Carboxyhemo globin [place] ([facility]) ID Date Data Source [id number] 09/13/2020 01:20:00 PM EST [place] ([facility]) Name Value Range Interpretation Code Description Data Ariane rce(s) Supporting Document(s) prothrombin time 13.0 seconds 12.5-14.3 normal Prothrombin Time [place] ([facility]) INR normal Inr [place] ([facility]) ID Date Data Source [id number] 09/13/2020 01:20:00 PM EST [place] ([facility]) Name Value Range Interpretation Code Description Data Ariane rce(s) Supporting Document(s) creatinine for GFR 0.78 mg/dL 0.55-1.30 normal Creatinine for GF R [place] ([facility]) blood urea nitrogen 23 mg/dL 7-18 Above high normal Blood Ure a Nitrogen [place] ([facility]) glucose, fasting 86 mg/dL 70-100 normal Glucose, Fasting AT [place] ([facility]) potassium serum 4.7 mEq/L 3.5-5.1 normal Potassium Serum ATH NA ([facility]) sodium level 141 mEq/L 136-145 normal Sodium Level [place] (No [facility]) glomerular filtration rate > 60.0 >51 normal Glomerula r Filtration Rate [place] ([facility]) anion gap 4 mEq/L 8-16 Below low normal Anion Gap [place] ( [facility]) chloride level 112 mEq/L 98-107 Above high normal Chloride Level [place] ([facility]) carbon dioxide level 25 mEq/L 21-32 normal Carbon Dioxide Level [place] ([facility]) calcium level 8.7 mg/dL 8.5-10.1 normal Calcium Level [place] ( [facility]) ID Date Data Source [id number] 09/13/2020 01:20:00 [facility] Name Value Range Interpretation Code Description Data Ariane rce(s) Supporting Document(s) partial thromboplastin time 27.5 seconds 24.2-38.5 normal Partial Thromboplastin Time [place] ([facility]) ID Date Data Source [id number] 09/13/2020 01:20:00 PM EST [place] ([facility]) Name Value Range Interpretation Code Description Data Ariane rce(s) Supporting Document(s) white blood count 6.2 10 4.0-10.0 normal White Blood Count [place] ([facility]) red blood count 3.93 10 4.00-5.40 Below low normal Red Blood Coun t [place] ([facility]) hematocrit 38.9 % 36.0-47.0 normal Hematocrit [place] ([facility]) hemoglobin 12.5 g/dL 12.0-15.5 normal Hemoglobin [place] ([facility]) mean corpuscular volume 99.0 fL 80.0-96.0 Above high normal Mean Corpuscular Volume [place] ([facility]) mean corpuscular hemoglobin 31.8 pg 27.0-33.0 normal Mean Corpuscular Hemoglobin [place] ([facility]) platelet count, automated 258 10 150-450 normal Platelet C ount, Automated [place] ([facility]) red cell distribution width 13.3 % 11.5-14.5 normal Red Cell Distribution Width [place] ([facility]) mean corpuscular HGB conc 32.1 g/dL 32.0-36.5 normal Mean Corpu scular HGB Conc [place] ([facility]) nucleated red blood cell % 0.0 % 0-0 normal Nucleated Red Blood Cell % [place] ([facility]) ID Date Data Source [id number] 09/13/2020 01:20:00 PM EST [place] ([facility]) Name Value Range Interpretation Code Description Data Ariane rce(s) Supporting Document(s) carboxyhemoglobin 1.8 % 0.0-1.5 Above high normal Carboxyhemo globin [place] ([facility]) ID Date Data Source [id number] 09/13/2020 01:20:00 PM EST [place] ([facility]) Name Value Range Interpretation Code Description Data Ariane rce(s) Supporting Document(s) prothrombin time 13.0 seconds 12.5-14.3 normal Prothrombin Time [place] ([facility]) INR normal Inr [place] ([facility]) ID Date Data Source [id number] 09/13/2020 01:20:00 PM EST [place] ([facility]) Name Value Range Interpretation Code Description Data Ariane rce(s) Supporting Document(s) blood urea nitrogen 23 mg/dL 7-18 Above high normal Blood Ure a Nitrogen [place] ([facility]) glucose, fasting 86 mg/dL 70-100 normal Glucose, Fasting AT [facility] ([facility]) creatinine for GFR 0.78 mg/dL 0.55-1.30 normal Creatinine for GF R [place] ([facility]) sodium level 141 mEq/L 136-145 normal Sodium Level [place] (No [facility]) glomerular filtration rate > 60.0 >51 normal Glomerula r Filtration Rate [place] ([facility]) anion gap 4 mEq/L 8-16 Below low normal Anion Gap [place] ( [facility]) carbon dioxide level 25 mEq/L 21-32 normal Carbon Dioxide Level [place] ([facility]) chloride level 112 mEq/L 98-107 Above high normal Chloride Level [place] ([facility]) potassium serum 4.7 mEq/L 3.5-5.1 normal Potassium Serum ATHE NA ([facility]) calcium level 8.7 mg/dL 8.5-10.1 normal Calcium Level [place] ( [facility]) ID Date Data Source [id number] 09/13/2020 01:20:00 PM EST [facility]) Name Value Range Interpretation Code Description Data Ariane rce(s) Supporting Document(s) partial thromboplastin time 27.5 seconds 24.2-38.5 normal Partial Thromboplastin Time [facility]) ID Date Data Source [id number] 09/13/2020 01:20:00 PM EST [place] ([facility]) Name Value Range Interpretation Code Description Data Ariane rce(s) Supporting Document(s) hematocrit 38.9 % 36.0-47.0 normal Hematocrit [place] ([facility]) red blood count 3.93 10 4.00-5.40 Below low normal Red Blood Coun t [place] ([facility]) hemoglobin 12.5 g/dL 12.0-15.5 normal Hemoglobin [place] ([facility]) white blood count 6.2 10 4.0-10.0 normal White Blood Count [place] ([facility]) mean corpuscular HGB conc 32.1 g/dL 32.0-36.5 normal Mean Corpu scular HGB Conc [place] ([facility]) mean corpuscular volume 99.0 fL 80.0-96.0 Above high normal Mean Corpuscular Volume [place] ([facility]) mean corpuscular hemoglobin 31.8 pg 27.0-33.0 normal Mean Corpuscular Hemoglobin [place] ([facility]) platelet count, automated 258 10 150-450 normal Platelet C ount, Automated [place] ([facility]) nucleated red blood cell % 0.0 % 0-0 normal Nucleated Red Blood Cell % [place] ([facility]) red cell distribution width 13.3 % 11.5-14.5 normal Red Cell Distribution Width [place] ([facility]) ID Date Data Source [id number] 09/13/2020 01:20:00 PM EST [place] ([facility]) Name Value Range Interpretation Code Description Data Ariane rce(s) Supporting Document(s) carboxyhemoglobin 1.8 % 0.0-1.5 Above high normal Carboxyhemo globin [place] ([facility]) ID Date Data Source [id number] 09/13/2020 01:20:00 PM EST [facility]) Name Value Range Interpretation Code Description Data Ariane rce(s) Supporting Document(s) prothrombin time 13.0 seconds 12.5-14.3 normal Prothrombin Time [place] ([facility]) INR normal Inr [place] ([facility]) ID Date Data Source [id number] 09/13/2020 01:20:00 PM EST [facility]) Name Value Range Interpretation Code Description Data Ariane rce(s) Supporting Document(s) blood urea nitrogen 23 mg/dL 7-18 Above high normal Blood Ure a Nitrogen [place] ([facility]) glucose, fasting 86 mg/dL 70-100 normal Glucose, Fasting AT [facility]) glomerular filtration rate > 60.0 >51 normal Glomerula r Filtration Rate [place] ([facility]) creatinine for GFR 0.78 mg/dL 0.55-1.30 normal Creatinine for GF R [place] ([facility]) sodium level 141 mEq/L 136-145 normal Sodium Level [place] ([facility]) potassium serum 4.7 mEq/L 3.5-5.1 normal Potassium Serum ATH NA [facility]) chloride level 112 mEq/L 98-107 Above high normal Chloride Level [place] ([facility]) carbon dioxide level 25 mEq/L 21-32 normal Carbon Dioxide Level [place] ([facility]) calcium level 8.7 mg/dL 8.5-10.1 normal Calcium Level [place] ( [facility]) anion gap 4 mEq/L 8-16 Below low normal Anion Gap [place] ( [facility]) ID Date Data Source [id number] 09/13/2020 01:20:00 PM EST [place] ([facility]) Name Value Range Interpretation Code Description Data Ariane rce(s) Supporting Document(s) partial thromboplastin time 27.5 seconds 24.2-38.5 normal Partial Thromboplastin Time [facility]) ID Date Data Source [id number] 09/13/2020 01:20:00 PM EST [place] ([facility]) Name Value Range Interpretation Code Description Data Ariane rce(s) Supporting Document(s) red blood count 3.93 10 4.00-5.40 Below low normal Red Blood Coun t [place] ([facility]) white blood count 6.2 10 4.0-10.0 normal White Blood Count [place] ([facility]) hematocrit 38.9 % 36.0-47.0 normal Hematocrit [facility]) hemoglobin 12.5 g/dL 12.0-15.5 normal Hemoglobin [facility]) mean corpuscular volume 99.0 fL 80.0-96.0 Above high normal Mean Corpuscular Volume [place] ([facility]) mean corpuscular HGB conc 32.1 g/dL 32.0-36.5 normal Mean Corpu scular HGB Conc [place] ([facility]) red cell distribution width 13.3 % 11.5-14.5 normal Red Cell Distribution Width [place] ([facility]) mean corpuscular hemoglobin 31.8 pg 27.0-33.0 normal Mean Corpuscular Hemoglobin [place] ([facility]) nucleated red blood cell % 0.0 % 0-0 normal Nucleated Red Blood Cell % [place] ([facility]) platelet count, automated 258 10 150-450 normal Platelet C ount, Automated [place] ([facility]) ID Date Data Source [id number] 09/13/2020 01:20:00 PM EST [place] ([facility]) Name Value Range Interpretation Code Description Data Ariane rce(s) Supporting Document(s) carboxyhemoglobin 1.8 % 0.0-1.5 Above high normal Carboxyhemo globin [place] ([facility]) ID Date Data Source [id number] 09/13/2020 01:20:00 PM EST [place] ([facility]) Name Value Range Interpretation Code Description Data Ariane rce(s) Supporting Document(s) INR normal Inr [place] ([facility]) prothrombin time 13.0 seconds 12.5-14.3 normal Prothrombin Time [place] ([facility]) ID Date Data Source [id number] 09/13/2020 01:20:00 PM EST [place] ([facility]) Name Value Range Interpretation Code Description Data Ariane rce(s) Supporting Document(s) blood urea nitrogen 23 mg/dL 7-18 Above high normal Blood Ure a Nitrogen [place] ([facility]) creatinine for GFR 0.78 mg/dL 0.55-1.30 normal Creatinine for GF R [place] ([facility]) glucose, fasting 86 mg/dL 70-100 normal Glucose, Fasting AT [facility] ([facility]) sodium level 141 mEq/L 136-145 normal Sodium Level [place] ([facility]) glomerular filtration rate > 60.0 >51 normal Glomerula r Filtration Rate [place] ([facility]) potassium serum 4.7 mEq/L 3.5-5.1 normal Potassium Serum ATH NA ([facility]) chloride level 112 mEq/L 98-107 Above high normal Chloride Level [place] ([facility]) calcium level 8.7 mg/dL 8.5-10.1 normal Calcium Level [place] ( [facility]) carbon dioxide level 25 mEq/L 21-32 normal Carbon Dioxide Level [place] ([facility]) anion gap 4 mEq/L 8-16 Below low normal Anion Gap [place] ( [facility]) ID Date Data Source [id number] 09/13/2020 01:20:00 PM EST [place] ([facility]) Name Value Range Interpretation Code Description Data Ariane rce(s) Supporting Document(s) partial thromboplastin time 27.5 seconds 24.2-38.5 normal Partial Thromboplastin Time [place] ([facility]) ID Date Data Source [id number] 09/13/2020 01:20:00 PM EST [place] ([facility]) Name Value Range Interpretation Code Description Data Ariane rce(s) Supporting Document(s) white blood count 6.2 10 4.0-10.0 normal White Blood Count [place] ([facility]) hemoglobin 12.5 g/dL 12.0-15.5 normal Hemoglobin [place] ([facility]) hematocrit 38.9 % 36.0-47.0 normal Hematocrit [place] ([facility]) red blood count 3.93 10 4.00-5.40 Below low normal Red Blood Coun t [place] ([facility]) mean corpuscular hemoglobin 31.8 pg 27.0-33.0 normal Mean Corpuscular Hemoglobin [place] ([facility]) mean corpuscular volume 99.0 fL 80.0-96.0 Above high normal Mean Corpuscular Volume [place] ([facility]) mean corpuscular HGB conc 32.1 g/dL 32.0-36.5 normal Mean Corpu scular HGB Conc [place] ([facility]) red cell distribution width 13.3 % 11.5-14.5 normal Red Cell Distribution Width [place] ([facility]) platelet count, automated 258 10 150-450 normal Platelet C ount, Automated [place] ([facility]) nucleated red blood cell % 0.0 % 0-0 normal Nucleated Red Blood Cell % [place] ([facility]) ID Date Data Source [id number] 09/13/2020 01:20:00 PM EST [place] ([facility]) Name Value Range Interpretation Code Description Data Ariane rce(s) Supporting Document(s) carboxyhemoglobin 1.8 % 0.0-1.5 Above high normal Carboxyhemo globin [facility]) ID Date Data Source [id number] 09/13/2020 01:20:00 PM EST [facility] ([facility], ) Name Value Range Interpretation Code Description Data Ariane rce(s) Supporting Document(s) Prothrombin Time 13.0 s 12.5-14.3 Normal (applies to non-numeric results) [facility] ([facility]) Inr 0.96 Normal (applies to non-numeric resul ts) [facility]) THERAPUTIC HUMAN INR VALUES INDICATIONS NORMAL RANGES PROPHYLAXIS/TREATMENT OF: VENOUS THROMBOSIS 2.0-3.0 PULMONARY EMBOLISM 2.0-3.0 PREVENTION OF SYSTEMIC EMBOLISM FROM: TISSUE HEART VALVES 2.0-3.0 ACUTE MYOCARDIAL INFARCTION 2.0-3.0 VALVULAR HEART DISEASE 2.0-3.0 ATRIAL FIBRILLATION 2.0-3.0 MECHANICAL VALVES(HIGH RISK) 2.5-3.5 RECURRENT MYOCARDIAL INFARCTION 2.5-3.5 ID Date Data Source [id number] 09/13/2020 01:20:00 PM EST [facility] ([facility], ) Name Value Range Interpretation Code Description Data Ariane rce(s) Supporting Document(s) Blood Urea Nitrogen 23 mg/dL 7-18 Above high normal [facility] ([facility] [place], ) Glucose, Fasting 86 mg/dL 70-100 Normal (applies to non-numeric results) [facility] ([facility]) Creatinine For GFR 0.78 mg/dL 0.55-1.30 Normal (applies to non -numeric results) [facility]) Glomerular Filtration Rate Laboratory test result Normal (applies to non- numeric results) [facility]) <content>Units are mL/min/1.73 m2</content>
<content></content>
<content>Chronic Kidney Disease Staging per NKF:</content>
<content></content>
<content>Stage I & II GFR >=60 Normal to Mildly Decreased</content>
<content>Stage III GFR 30- 59 Moderately Decreased</content>
<content>Stage IV GFR 15-29 Severely Decreased</content>
<content>Stage V GFR <15 Very Little GFR Left</content>
<content>ESRD GFR <15 on UI [employer]</content>
<content></content> Sodium Level 141 meq/L 136-145 Normal (applies to non-numeric res ults) [facility] Potassium Serum 4.7 meq/L 3.5-5.1 Normal (applies to non-numeric results) [facility] ([facility]) Chloride Level 112 meq/L 98-107 Above high normal [facility] ([facility]) Carbon Dioxide Level 25 meq/L 21-32 Normal (applies to non-num ayaan results) [facility] ([facility]) Anion Gap 4 meq/L 8-16 Below low normal [facility] ( [facility]) Calcium Level 8.7 mg/dL 8.5-10.1 Normal (applies to non-numeric re sults) [facility] ([facility]) ID Date Data Source [id number] 09/13/2020 01:20:00 PM EST [facility] ([facility]) Name Value Range Interpretation Code Description Data Ariane rce(s) Supporting Document(s) aPTT in Platelet poor plasma by Coagulation assay 27.5 s 24.2-38.5 Normal (applies to non-numeric results) [facility] ([facility]) *Is patient on Anticoagulants? N Comments: PREOP TESTING By: RAHAT Time: 1301 ID Date Data Source [id number] 09/13/2020 01:20:00 PM EST [facility] ([facility]) Name Value Range Interpretation Code Description Data Ariane rce(s) Supporting Document(s) White Blood Count 6.2 10 4.0-10.0 Normal (applies to non-numeri c results) [facility]) Red Blood Count 3.93 10 4.00-5.40 Below low normal [facility] ([facility]) Hemoglobin 12.5 g/dL 12.0-15.5 Normal (applies to non-numeric resul ts) [facility] Hematocrit 38.9 % 36.0-47.0 Normal (applies to non-numeric resul ts) [facility]) Mean Corpuscular Volume 99.0 fl 80.0-96.0 Above high normal [facility] ([facility]) Mean Corpuscular HGB Conc 32.1 g/dL 32.0-36.5 Normal (applies to non-numeric results) [facility] ([facility]) Mean Corpuscular Hemoglobin 31.8 pg 27.0-33.0 Norm al (applies to non-numeric results) [facility] ([facility]) Red Cell Distribution Width 13.3 % 11.5-14.5 Norm al (applies to non-numeric results) [facility] ([facility]) Platelet Count, Automated 258 10 150-450 Normal (applies to non-numeric results) [facility] ([facility]) Nucleated Red Blood Cell % 0.0 % 0-0 Normal (applies to n on-numeric results) [facility] ([facility]) ID Date Data Source [id number] 09/13/2020 01:20:00 PM EST [facility] ([facility]) Name Value Range Interpretation Code Description Data Ariane rce(s) Supporting Document(s) Carboxyhemoglobin/Hemoglobin.total in Blood 1.8 % 0.0-1.5 Abo ve high normal [facility] ([facility]) CARBOXYHEMOGLOBIN EXPECTED VALUES SUBURBAN NON-SMOKERS LESS THAN 1.5% SMOKERS 1.5-5.0% HEAVY SMOKERS 5.0-9.0% ID Date Data Source [id number] 09/11/2020 10:30:00 AM EST [facility] Name Value Range Interpretation Code Description Data Ariane rce(s) Supporting Document(s) SARS coronavirus 2 RNA [facility] This lab was ordered by [facility] and reported by [facility]. ID Date Data Source [id number] 08/18/2020 12:25:00 PM EST [place] ([facility]) Name Value Range Interpretation Code Description Data Ariane rce(s) Supporting Document(s) appearance, urine clear clear normal Appearance, Urine [place] ([facility]) pH,urine 5.0 units 5.0-9.0 normal pH,urine [place] ([facility]) color, urine yellow yellow normal Color, Urine [place] ([facility]) glucose, urine (UA) auto negative negative normal Glucose, Ur ine (UA) Auto [place] ([facility]) protein, urine auto negative negative normal Protein, Urine A uto [place] ([facility]) ketone, urine auto negative negative normal Ketone, Urine Aut o [place] ([facility]) specific gravity urine auto 1.002-1.035 normal Specifi c [place] Urine Auto [place] ([facility]) urobilinogen, urine auto 0.2 mg/dL 0.0-2.0 normal Urobilinoge n, Urine Auto [place] ([facility]) bilirubin, urine auto negative negative normal Bilirubin, Uri ne Auto [place] ([facility]) nitrite, urine auto negative negative normal Nitrite, Urine A uto [place] ([facility]) RBC, urine auto 2 /hpf 0-3 normal RBC, Urine Auto [place] ([facility]) blood, urine blood 1+ negative Above high normal Blood, Uri ne Blood [place] ([facility]) WBC, urine auto 10 /hpf 0-3 Above high normal WBC, Urine Au to [place] ([facility]) leukocyte esterase, urine auto 1+ negative Above high normal Leukocyte Esterase, Urine Auto [place] ([facility]) squamous epithelial cell ur AU 0 /hpf 0-6 normal Squam ous Epithelial Cell Ur AU [place] ([facility]) mucus, urine small negative normal Mucus, Urine [place] ([facility]) bacteria, urine auto negative negative normal Bacteria, Urine Auto [place] ([facility]) hyaline cast, urine auto 0 /lpf 0-1 normal Hyaline Chris t, Urine Auto [place] ([facility]) ID Date Data Source [id number] 08/18/2020 12:25:00 PM EST [place] ([facility]) Name Value Range Interpretation Code Description Data Ariane rce(s) Supporting Document(s) specific gravity urine auto 1.002-1.035 normal Specifi c [place] Urine Auto [place] ([facility]) color, urine yellow yellow normal Color, Urine [place] ([facility]) pH,urine 5.0 units 5.0-9.0 normal pH,urine [place] ([facility]) appearance, urine clear clear normal Appearance, Urine [place] ([facility]) ketone, urine auto negative negative normal Ketone, Urine Aut o [place] ([facility]) glucose, urine (UA) auto negative negative normal Glucose, Ur ine (UA) Auto [place] ([facility]) urobilinogen, urine auto 0.2 mg/dL 0.0-2.0 normal Urobilinoge n, Urine Auto [place] ([facility]) protein, urine auto negative negative normal Protein, Urine A uto [place] ([facility]) leukocyte esterase, urine auto 1+ negative Above high normal Leukocyte Esterase, Urine Auto [place] ([facility]) bilirubin, urine auto negative negative normal Bilirubin, Uri ne Auto [place] ([facility]) nitrite, urine auto negative negative normal Nitrite, Urine A uto [place] ([facility]) blood, urine blood 1+ negative Above high normal Blood, Uri ne Blood [place] ([facility]) squamous epithelial cell ur AU 0 /hpf 0-6 normal Squam ous Epithelial Cell Ur AU [place] ([facility]) mucus, urine small negative normal Mucus, Urine [place] ([facility]) WBC, urine auto 10 /hpf 0-3 Above high normal WBC, Urine Au to [place] ([facility]) bacteria, urine auto negative negative normal Bacteria, Urine Auto [place] ([facility]) RBC, urine auto 2 /hpf 0-3 normal RBC, Urine Auto [place] ([facility]) hyaline cast, urine auto 0 /lpf 0-1 normal Hyaline Chris t, Urine Auto [place] ([facility]) ID Date Data Source [id number] 08/18/2020 12:25:00 PM EST [place] ([facility]) Name Value Range Interpretation Code Description Data Ariane rce(s) Supporting Document(s) color, urine yellow yellow normal Color, Urine [place] ([facility]) appearance, urine clear clear normal Appearance, Urine [place] ([facility]) pH,urine 5.0 units 5.0-9.0 normal pH,urine [place] ([facility]) ketone, urine auto negative negative normal Ketone, Urine Aut o [place] ([facility]) protein, urine auto negative negative normal Protein, Urine A uto [place] ([facility]) glucose, urine (UA) auto negative negative normal Glucose, Ur ine (UA) Auto [place] ([facility]) urobilinogen, urine auto 0.2 mg/dL 0.0-2.0 normal Urobilinoge n, Urine Auto [place] ([facility]) specific gravity urine auto 1.002-1.035 normal Specifi c [place] Urine Auto [place] ([facility]) nitrite, urine auto negative negative normal Nitrite, Urine A uto [place] ([facility]) blood, urine blood 1+ negative Above high normal Blood, Uri ne Blood [place] ([facility]) WBC, urine auto 10 /hpf 0-3 Above high normal WBC, Urine Au to [place] ([facility]) bilirubin, urine auto negative negative normal Bilirubin, Uri ne Auto [place] ([facility]) leukocyte esterase, urine auto 1+ negative Above high normal Leukocyte Esterase, Urine Auto [place] ([facility]) mucus, urine small negative normal Mucus, Urine [place] ([facility]) hyaline cast, urine auto 0 /lpf 0-1 normal Hyaline Chris t, Urine Auto [place] ([facility]) bacteria, urine auto negative negative normal Bacteria, Urine Auto [place] ([facility]) squamous epithelial cell ur AU 0 /hpf 0-6 normal Squam ous Epithelial Cell Ur AU [place] ([facility]) RBC, urine auto 2 /hpf 0-3 normal RBC, Urine Auto [place] [facility] ([facility]) ID Date Data Source [id number] 08/18/2020 12:25:00 PM EST [place] ([facility]) Name Value Range Interpretation Code Description Data Ariane rce(s) Supporting Document(s) pH,urine 5.0 units 5.0-9.0 normal pH,urine [place] ([facility]) appearance, urine clear clear normal Appearance, Urine [place] ([facility]) color, urine yellow yellow normal Color, Urine [place] ([facility]) protein, urine auto negative negative normal Protein, Urine A uto [place] ([facility]) glucose, urine (UA) auto negative negative normal Glucose, Ur ine (UA) Auto [place] ([facility]) urobilinogen, urine auto 0.2 mg/dL 0.0-2.0 normal Urobilinoge n, Urine Auto [place] ([facility]) ketone, urine auto negative negative normal Ketone, Urine Aut o [place] ([facility]) specific gravity urine auto 1.002-1.035 normal Specifi c [place] Urine Auto [place] ([facility]) WBC, urine auto 10 /hpf 0-3 Above high normal WBC, Urine Au to [place] ([facility]) leukocyte esterase, urine auto 1+ negative Above high normal Leukocyte Esterase, Urine Auto [place] ([facility]) blood, urine blood 1+ negative Above high normal Blood, Uri ne Blood [place] ([facility]) nitrite, urine auto negative negative normal Nitrite, Urine A uto [place] ([facility]) bilirubin, urine auto negative negative normal Bilirubin, Uri ne Auto [place] ([facility]) bacteria, urine auto negative negative normal Bacteria, Urine Auto [place] ([facility]) mucus, urine small negative normal Mucus, Urine [place] ([facility]) squamous epithelial cell ur AU 0 /hpf 0-6 normal Squam ous Epithelial Cell Ur AU [place] ([facility]) hyaline cast, urine auto 0 /lpf 0-1 normal Hyaline Chris t, Urine Auto [place] ([facility]) RBC, urine auto 2 /hpf 0-3 normal RBC, Urine Auto [place] [facility] ([facility]) ID Date Data Source [id number] 08/18/2020 12:25:00 PM EST [place] ([facility]) Name Value Range Interpretation Code Description Data Ariane rce(s) Supporting Document(s) appearance, urine clear clear normal Appearance, Urine [place] ([facility]) specific gravity urine auto 1.002-1.035 normal Specifi c [place] Urine Auto [place] ([facility]) pH,urine 5.0 units 5.0-9.0 normal pH,urine [place] ([facility]) glucose, urine (UA) auto negative negative normal Glucose, Ur ine (UA) Auto [place] ([facility]) protein, urine auto negative negative normal Protein, Urine A uto [place] ([facility]) color, urine yellow yellow normal Color, Urine [place] ([facility]) nitrite, urine auto negative negative normal Nitrite, Urine A uto [place] ([facility]) ketone, urine auto negative negative normal Ketone, Urine Aut o [place] ([facility]) bilirubin, urine auto negative negative normal Bilirubin, Uri ne Auto [place] ([facility]) urobilinogen, urine auto 0.2 mg/dL 0.0-2.0 normal Urobilinoge n, Urine Auto [place] ([facility]) leukocyte esterase, urine auto 1+ negative Above high normal Leukocyte Esterase, Urine Auto [place] ([facility]) RBC, urine auto 2 /hpf 0-3 normal RBC, Urine Auto [place] [facility] ([facility]) blood, urine blood 1+ negative Above high normal Blood, Uri ne Blood [place] ([facility]) WBC, urine auto 10 /hpf 0-3 Above high normal WBC, Urine Au to [place] ([facility]) bacteria, urine auto negative negative normal Bacteria, Urine Auto [place] ([facility]) hyaline cast, urine auto 0 /lpf 0-1 normal Hyaline Chris t, Urine Auto [place] ([facility]) mucus, urine small negative normal Mucus, Urine [place] ([facility]) squamous epithelial cell ur AU 0 /hpf 0-6 normal Squam ous Epithelial Cell Ur AU [place] ([facility]) ID Date Data Source [id number] 08/18/2020 12:25:00 PM EST [place] ([facility]) Name Value Range Interpretation Code Description Data Ariane rce(s) Supporting Document(s) appearance, urine clear clear normal Appearance, Urine [place] ([facility]) specific gravity urine auto 1.002-1.035 normal Specifi c [place] Urine Auto [place] ([facility]) color, urine yellow yellow normal Color, Urine [place] ([facility]) pH,urine 5.0 units 5.0-9.0 normal pH,urine [place] ([facility]) ketone, urine auto negative negative normal Ketone, Urine Aut o [place] ([facility]) urobilinogen, urine auto 0.2 mg/dL 0.0-2.0 normal Urobilinoge n, Urine Auto [place] ([facility]) protein, urine auto negative negative normal Protein, Urine A nho [place] ([facility]) glucose, urine (UA) auto negative negative normal Glucose, Ur ine (UA) Auto [place] ([facility]) bilirubin, urine auto negative negative normal Bilirubin, Uri ne Auto [place] ([facility]) blood, urine blood 1+ negative Above high normal Blood, Uri ne Blood [place] ([facility]) nitrite, urine auto negative negative normal Nitrite, Urine A uto [place] ([facility]) WBC, urine auto 10 /hpf 0-3 Above high normal WBC, Urine Au to [place] ([facility]) leukocyte esterase, urine auto 1+ negative Above high normal Leukocyte Esterase, Urine Auto [place] ([facility]) bacteria, urine auto negative negative normal Bacteria, Urine Auto [place] ([facility]) squamous epithelial cell ur AU 0 /hpf 0-6 normal Squam ous Epithelial Cell Ur AU [place] ([facility]) RBC, urine auto 2 /hpf 0-3 normal RBC, Urine Auto [place] ([facility]) mucus, urine small negative normal Mucus, Urine [place] ([facility]) hyaline cast, urine auto 0 /lpf 0-1 normal Hyaline Chris t, Urine Auto [place] ([facility]) ID Date Data Source [id number] 08/18/2020 12:25:00 PM EST [place] ([facility]) Name Value Range Interpretation Code Description Data Ariane rce(s) Supporting Document(s) appearance, urine clear clear normal Appearance, Urine [place] ([facility]) specific gravity urine auto 1.002-1.035 normal Specifi c [place] Urine Auto [place] ([facility]) protein, urine auto negative negative normal Protein, Urine A uto [place] ([facility]) pH,urine 5.0 units 5.0-9.0 normal pH,urine [place] ([facility]) color, urine yellow yellow normal Color, Urine [place] ([facility]) urobilinogen, urine auto 0.2 mg/dL 0.0-2.0 normal Urobilinoge n, Urine Auto [place] ([facility]) glucose, urine (UA) auto negative negative normal Glucose, Ur ine (UA) Auto [place] ([facility]) ketone, urine auto negative negative normal Ketone, Urine Aut o [place] ([facility]) bilirubin, urine auto negative negative normal Bilirubin, Uri ne Auto [place] ([facility]) nitrite, urine auto negative negative normal Nitrite, Urine A uto [place] ([facility]) WBC, urine auto 10 /hpf 0-3 Above high normal WBC, Urine Au to [place] ([facility]) leukocyte esterase, urine auto 1+ negative Above high normal Leukocyte Esterase, Urine Auto [place] ([facility]) blood, urine blood 1+ negative Above high normal Blood, Uri ne Blood [place] ([facility]) squamous epithelial cell ur AU 0 /hpf 0-6 normal Squam ous Epithelial Cell Ur AU [place] ([facility]) bacteria, urine auto negative negative normal Bacteria, Urine Auto [place] ([facility]) hyaline cast, urine auto 0 /lpf 0-1 normal Hyaline Chris t, Urine Auto [place] ([facility]) mucus, urine small negative normal Mucus, Urine [place] ([facility]) RBC, urine auto 2 /hpf 0-3 normal RBC, Urine Auto [place] ([facility]) ID Date Data Source [id number] 07/23/2020 10:45:00 AM EDT [facility]) Name Value Range Interpretation Code Description Data Ariane rce(s) Supporting Document(s) Prothrombin Time 12.2 s 12.5-14.3 Normal (applies to non-numeric results) [facility]) Inr 0.89 Normal (applies to non-numeric resul ts) [facility] ([facility]) THERAPUTIC HUMAN INR VALUES INDICATIONS NORMAL RANGES PROPHYLAXIS/TREATMENT OF: VENOUS THROMBOSIS 2.0-3.0 PULMONARY EMBOLISM 2.0-3.0 PREVENTION OF SYSTEMIC EMBOLISM FROM: TISSUE HEART VALVES 2.0-3.0 ACUTE MYOCARDIAL INFARCTION 2.0-3.0 VALVULAR HEART DISEASE 2.0-3.0 ATRIAL FIBRILLATION 2.0-3.0 MECHANICAL VALVES(HIGH RISK) 2.5-3.5 RECURRENT MYOCARDIAL INFARCTION 2.5-3.5 Partial Thromboplastin Time 29.0 s 24.2-38.5 Norm al (applies to non-numeric results) [facility] ([facility]) ID Date Data Source [id number] 07/23/2020 10:45:00 AM EDT [facility]) Name Value Range Interpretation Code Description Data Ariane rce(s) Supporting Document(s) Platelets [#/volume] in Blood by Automated count 258 10 150-450 Normal (applies to non-numeric results) [facility]) aPTT in Platelet poor plasma by Coagulation assay Laboratory test res ult [facility]) ID Date Data Source [id number] 07/22/2020 02:47:12 PM EDT [facility] Measurements & CalculationsHeight: 63 inches (5 ft. 3 in.) 160.02 cm Weight: 129 pounds 58.64 kg Body Mass Index (BMI): 22.93BMI Interpretation: Healthy WeightBody Surface Area (BSA): 1.61Weight Management Education Done (Nutrition/Physical Activity)Vital SignsTemperature: 98.1FPulse Rate: 89 beats/minuteRespiratory Rate: 16 respirations/minuteBlood Pressure: 117/85 O2 Saturation: 100% Vital Signs performed by: Angella Sands MA, July 22, 2020 2:55 PMInitial Intake Information From: patientRoom #: 14Infectious Disease / Travel ScreeningRecent travel for you or any close contacts? NoHave you had any close contact with anyone diagnosed with or under investigation for COVID-19 (coronavirus)? NoFever? NoRespiratory symptoms: cough, cold, congestion, shortness of breath, difficulty breathing? NoLoss of smell? NoLoss of taste? NoSmoking, Tobacco, Vaping or Smoke Exposure StatusSmoke Status: former smokerTobacco Use: NoDo you vape? NoMenstrual HistoryAny possibility of ? NoHealthcare HistorySince your last office visit...Have you been admitted to the hospital? No - smc-Hospital admission date reported today: 10/16/2019Have you been to an emergency room (ER) or urgent care clinic? No - endoscope last weekEmergency room (ER) or urgent care date reported today: 03/29/2019Have you seen another healthcare provider? Yes - [place], Neuro[place] date reported today: 01/28/2020Have you seen a dentist? Yes - [facility]HDIntake performed by: Angella Sands MA, July 22, 2020 2:54 PMRate Your HealthIn general, would you say your health is? FairPain AssessmentAre you currently having any pain which... You would like your provider to address? No Affects your activity level? NoDepression Screening - PHQ-2Over the last two weeks, have you... Had little interest or pleasure in doing things? Not at all Been feeling down, depressed, or hopeless? Not at all PHQ-2 Score: 0Anxiety Screening - SP-2Over the last two weeks, have you been... Feeling nervous, anxious, or on edge? Not at all Unable to stop or control worrying? Not at all SP-2 Score: 0Screening, Brief Intervention, & Referral to Treatment (SBIRT)Pre-Screening Questions How many times have you have 4 or more drinks in a day? 0How many times have you used an illegal drug or used a prescription medication for a non-medical reason? 0Performed by: Angella Sands MA, July 22, 2020 2:55 PMPatient History Medical History:AnxietyDepressionAsthmaSeizuresLung NodulesMigrainesSurgical History: section [id number]&CColonoscopy Endoscopy "cancer removed from uterus"Family History:No known family historySocial/Personal History: Chief Complaintspot on left hand x 8 months getting biggerHistory of Present Illness (HPI)Painful at times. Growing in size. No injury to area.Had PET scan last week and has follow up scheduled with pulmonary about her lung nodule.HPI performed by: Pa Mcdonough MD, July 22, 2020 3:35 PMTransitions of Care InboundProblem ReviewProblem List was reviewed and/or updated during this visit.Medication Reconciliation & ReviewMedication List was reviewed and/or updated during this visit, including review of any utgo-erd-zqrnsiu medications, herbal therapies, and/or supplements.Allergy ReviewAllergy List was reviewed and/or updated during this visit.Adult Preventive CareProvider Calculated and Reviewed all Clinical Protocols for patient today. Labs/Meds/Other Counseling- Nutrition and Physical Activity:BMI Interpretation: Healthy Weight (07/22/2020) Counseling: Done (07/22/2020) Physical Activity: Done (07/22/2020)Review of Systems General: Denies chills, fever. Cardiovascular: Denies chest pain. Respiratory: Denies shortness of breath. Gastrointestinal: Denies diarrhea, constipation. Genitourinary: Denies urinary frequency, urinary urgency, incomplete emptying. Physical ExamGeneral Appearance: well nourished, well hydrated, no acute distressPeripheral Circulation: no clubbing, cyanosis, edema, or varicositiesGait & Station: normalSkin, Inspection: Vaguely defined macule dorsal left hand about 1 cm in diameter.Orientation: oriented to time, place, and personMood & Affect: no depression, anxiety, or agitationJudgment & Insight: intactCare Management Plan Transitions of CareInboundRate Your HealthIn general, would you say your health is? FairAssessment & Plan Problems:Added: Squamous cell carcinoma of other specified sites of skin (ICD-173.82) (ICD10- C44.82) Assessment: Instructions: Working diagnosis.Refer to Derm or general surgery.Patient Instructions/Care Plan: Squamous cell carcinoma of other specified sites of skin: Working diagnosis.Refer to Derm or general surgery. Plan developed in collaboration with patient and/or familyMedications:CHANTIX STARTING MONTH ADAM 0.5 MG X 11 & 1 MG X 42 ORAL TABLETSYMBICORT 160-4.5 MCG/ACT INHALATION AEROSOLAMITRIPTYLINE HCL 50 MG ORAL TABLETRISPERIDONE 0.25 MG ORAL TABLETMAGNESIUM OXIDE 400 (240 MG) MG ORAL TABLETCARISOPRODOL 350 MG ORAL TABLETQUETIAPINE FUMARATE 400 MG ORAL TABLETQUETIAPINE FUMARATE 100 MG ORAL TABLETTOPIRAMATE 200 MG ORAL TABLETSYNTH ROID 88 MCG ORAL TABLETATORVASTATIN CALCIUM 10 MG ORAL TABLETLINZESS 290 MCG ORAL CAPSULELAMICTAL 100 MG ORAL TABLETHM VITAMIN D 1000 UNIT ORAL TABLETAllergies:PENICILLIN (Critical)* ASPRIN (Critical)DOXYCYCLINE (Moderate)MOTRIN (Mild)Orders:Adult - Ofc Vst, EST, Level III [CPT-43249] Dermatology Consult [CPT-48436] Name Value Range Interpretation Code Description Data Ariane rce(s) Supporting Document(s) ID Date Data Source [id number] 06/25/2020 10:18:53 AM EDT [facility] Measurements & CalculationsHeight: 63 inches (5 ft. 3 in.) 160.02 cm Weight: 129 pounds 58.64 kg Body Mass Index (BMI): 22.93BMI Interpretation: Healthy WeightBody Surface Area (BSA): 1.61Weight Management Education Done (Nutrition/Physical Activity)Vital SignsTemperature: 98.9F 37.17C Pulse Rate: 92 beats/minuteRespiratory Rate: 12 respirations/minuteBlood Pressure: 129/86 right arm sitting automaticO2 Saturation: 98% room air sittingVital Signs performed by: Eve Patel MA, June 25, 2020 10:29 AMVital Signs performed by: Eve Patel MA, June 25, 2020 10:29 AMInitial Intake Information From: patientRoom #: 14Infectious Disease / Travel ScreeningRecent travel for you or any close contacts? NoHave you had any close contact with anyone diagnosed with or under investigation for COVID-19 (coronavirus)? NoFever? NoRespiratory symptoms: cough, cold, congestion, shortness of breath, difficulty breathing? NoLoss of smell? NoLoss of taste? NoSmoking, Tobacco, Vaping or Smoke Exposure StatusSmoke Status: current every day smokerTobacco Use: YesAdv to Quit: YesDo you vape? YesWhat is in your device? marijuana (not CBD)Frequency: current every day vaperPassive Smoke Exposure: NoMenstrual HistoryAny possibility of ? NoComments: ablasion 2008Healthcare HistorySince your last office visit...Have you been admitted to the hospital? NoHave you been to an emergency room (ER) or urgent care clinic? NoHave you seen another healthcare provider? Yes [facility] [facility] a [facility]? Yes - NCFHDIntake performed by: Eve Patel MA, June 25, 2020 10:22 AMRate Your HealthIn general, would you say your health is? FairPain AssessmentAre you currently having any pain which... You would like your provider to address? No Affects your activity level? NoDepression Screening - PHQ-2Over the last two weeks, have you... Had little interest or pleasure in doing things? Not at all Been feeling down, depressed, or hopeless? Not at all PHQ-2 Score: 0Anxiety Screening - SP-2Over the last two weeks, have you been... Feeling nervous, anxious, or on edge? Not at all Unable to stop or control worrying? Not at all SP-2 Score: 0Food InsecurityWithin the past year...Did you worry whether your food would run out before you got money to buy more? Sometimes trueWas there a time when the food you bought didn't last and you didn't have money to get more? Sometimes trueScreening, Brief Intervention, & Referral to Treatment (SBIRT)Pre-Screening Questions How many times have you have 4 or more drinks in a day? 0How many times have you used an illegal drug or used a prescription medication for a non-medical reason? 0Performed by: Eve Patel MA, June 25, 2020 10:23 AMPatient History Medical History:AnxietyDepressionAsthmaSeizuresLung NodulesMigrainesSurgical History: section m1VjckovwumewJCBFU&CColonoscopy Endoscopy "cancer removed from uterus"Family History:No known family historySocial/Personal History: Advised to Quit/Tobacco Education: YesChief Complaintfollow-up visit CT scanHistory of Present Illness (HPI)49 YO female here for follow up on CT scan. There is now a solid component to the nodule on the CT.She is having increasing shortness of breath and non productive cough. Albuterol helps. She is using this more and more often.Would like to quit smokng.Seeing Dr. Stafford and Abbi for counselling here and things are going well with bipolar disorder.HPI performed by: Pa Mcdonough MD, June 25, 2020 10:50 AMTransitions of Care InboundProblem ReviewProblem List was reviewed and/or updated during this visit.Medication Reconciliation & ReviewMedication List was reviewed and/or updated during this visit, including review of any wrxk-lxj-yqeltmd medications, herbal therapies, and/or supplements.Allergy ReviewAllergy List was reviewed and/or updated during this visit.Adult Preventive CareProvider Calculated and Reviewed all Clinical Protocols for patient today. Screening Tobacco Screening: Smoking Status: current every day smoker (06/25/2020) Tobacco Use: Currently (06/25/2020) Advised to Quit: Yes (06/25/2020)Labs/Meds/Other Counseling- Nutrition and Physical Activity:BMI Interpretation: Healthy Weight (06/25/2020) Counseling: Done (06/25/2020) Physical Activity: Done (06/25/2020)Physical ExamGeneral Appearance: well nourished, well hydrated, no acute distressRespiratory, Auscultation: clear to auscultation bilaterally; no rales, rhonchi, or wheezesRespiratory, Effort: no intercostal retractions or use of accessory musclesCardiovascular, Auscultation: S1, S2 audible; no murmur, rub, or gallop; RRRGait & Station: normalSkin, Inspection: no rashes, lesions, or ulcerationsOrientation: oriented to time, place, and personMood & Affect: no depression, anxiety, or agitationJudgment & Insight: intactCare Management Plan Transitions of CareInboundRate Your HealthIn general, would you say your health is? FairAssessment & Plan Problems:Assessed:Solitary nodule of lung (ICD-793.11) (PFK43-I82.1) Assessment: Instructions: Set up PET scan and refer to Pulmonology.ASTHMA (ICD-493.90) (XPK65-I90.909) Assessment: Instructions: Add Symbicort to the Ventolin.Tobacco use (ICD-305.1) (SMB11-M13.0) Assessment: Instructions: Trial of Chantix.Patient Instructions/Care Plan: Solitary nodule of lung: Set up PET scan and refer to Pulmonology.ASTHMA: Add Symbicort to the Ventolin.Tobacco use: Trial of Chantix. Plan developed in collaboration with patient and/or familyMedications:CHANTIX STARTING MONTH ADAM 0.5 MG X 11 & 1 MG X 42 ORAL TABLETSYMBICORT 160-4.5 MCG/ACT INHALATION AEROSOLAMITRIPTYLINE HCL 50 MG ORAL TABLETRISPERIDONE 0.25 MG ORAL TABLETMAGNESIUM OXIDE 400 (240 MG) MG ORAL TABLETCARISOPRODOL 350 MG ORAL TABLETQUETIAPINE FUMARATE 400 MG ORAL TABLETQUETIAPINE FUMARATE 100 MG ORAL TABLETTOPIRAMATE 200 MG ORAL TABLETSYNTHROID 88 MCG ORAL TABLETATORVASTATIN CALCIUM 10 MG ORAL TABLETLINZESS 290 MCG ORAL CAPSULELAMICTAL 100 MG ORAL TABLETHM VITAMIN D 1000 UNIT ORAL TABLETMedication Changes:New Prescription:SYMBICORT 160-4.5 MCG/ACT INHALATION AEROSOL-2 puffs bid. Qty: 1[Unspecified] Refills: 2 Method: ElectronicCHANTIX STARTING MONTH ADAM 0.5 MG X 11 & 1 MG X 42 ORAL TABLET-UAD. Qty: 1[Unspecified] Refills: 0 Method: ElectronicAllergies:PENICILLIN (Critical)* ASPRIN (Critical)DOXYCYCLINE (Moderate)MOTRIN (Mild)Orders:Adult - Ofc Vst, EST, Level III [CPT-79024] Pulmonology Consult [CPT-35571] PET IMAGING CT FOR ATTENUATION LIMITED AREA [CPT-76854] Medications:CHANTIX STARTING MONTH ADAM 0.5 MG X 11 & 1 MG X 42 ORAL TABLET (VARENICLINE TARTRATE) UAD. #1[Unspecified] x 0 Route:ORAL Entered and Authorized by: Pa Mcdonough MD Method used: Electronically to [facility]* (retail) [address] [place] [address] Note to Pharmacy: Route: ORAL; RxID: [id number] 160-4.5 MCG/ACT INHALATION AEROSOL (BUDESONIDE-FORMOTEROL FUMARATE) 2 puffs bid. #1[Unspecified] x 2 Route:INHALATION Entered and Authorized by: Pa Mcdonough MD Method used: Electronically to [facility]* (retail) [address] [place] [address] Fax: Note to Pharmacy: Route: INHALATION; RxID: [id number] signed by Pa Mcdonough MD on 06/25/2020 at 11:10 AM Review of Systems General: Denies chills, fever. Cardiovascular: Denies chest pain, palpitations, feeling faint. Respiratory: Complains of see HPI, cough. Assessment & Plan Name Value Range Interpretation Code Description Data Ariane rce(s) Supporting Document(s) ID Date Data Source [id number] 06/07/2020 11:03:29 AM EDT [facility] Name Value Range Interpretation Code Description Data Ariane rce(s) Supporting Document(s) ID Date Data Source [id number] 05/26/2020 11:31:00 AM EDT [facility] Name Value Range Interpretation Code Description Data Ariane rce(s) Supporting Document(s) HGBA1C 5.2 % N [facility] ID Date Data Source [id number] 05/26/2020 11:31:00 AM EDT [facility] Name Value Range Interpretation Code Description Data Ariane rce(s) Supporting Document(s) BG FASTING 84 mg/dL 70-100 N [facility] TSH 1.070 microintl units/mL 0.358-3.740 N [facility] VIT D25 TOT 25.0 ng/mL 30.0-100.0 L [facility] ID Date Data Source [id number] 05/26/2020 11:30:41 AM EDT [facility] Labs In-House Blood TestsDate/Time Colle cted: May 26, 2020 11:31 AMTest Result Reference Range Normal ValueComments: labs drawn in office. Taken from right AC. Tolerated well. Sera Fieldsfatou BAIG, May 26, 2020 11:31 AMAssessment & Plan Orders:[id number] Vst-Est Level I [CPT-38651] 27391 - Venipuncture [CPT-10253] Name Value Range Interpretation Code Description Data Ariane rce(s) Supporting Document(s) ID Date Data Source [id number] 04/12/2020 04:07:00 PM EDT [facility] ([facility], ) Name Value Range Interpretation Code Description Data Ariane rce(s) Supporting Document(s) Surgical pathology study Laboratory test result [facility] ([facility] [place], ) FINAL DIAGNOSIS Esophagus, below Z line, biopsies: Fragments of gastroesophageal junctional mucosa with scattered chronic inflammation and regenerative change, no intestinal metaplasia or dysplasia is identified. 04/14/2020 - 1313 CLINICAL DIAGNOSIS Dysphagia, upper abdominal pain 04/13/2020 - 1403 GROSS DIAGNOSIS Received in formalin labeled "biopsy Z line" are five fragments of thacker soft tissue ranging from 0.2 to 0.4 cm in largest dimension. All in one. -YZ 04/13/2020 - 1403 Signed Tania Holland M.D. 04/14/2020 1322 ID Date Data Source [id number] 04/09/2020 12:00:00 AM EDT [facility] Name Value Range Interpretation Code Description Data Ariane rce(s) Supporting Document(s) SARS CORONAVIRUS 2 RNA [facility] This lab was ordered by [facility] and reported by [facility]. ID Date Data Source [id number] 04/06/2020 04:26:00 PM EDT [facility] Name Value Range Interpretation Code Description Data Ariane rce(s) Supporting Document(s) HCT 38.9 % 36.0-47.0 N [facility] HGB 12.8 g/dL 12.0-15.5 [facility] MCH 32.9 G/DL pg 32.0-36.5 N [facility] MCHC 31.4 PG % 27.0-33.0 N [facility] PLATELETS 269 10 10*3/mm3 150-450 N [facility] RBC 4.07 10 10*6/mm3 4.00-5.40 [facility] RDW 13.9 % 11.5-14.5 [facility] WBC TOTAL 6.8 4.0-10.0 [facility] ID Date Data Source [id number] 04/06/2020 04:26:00 PM EDT [facility] Name Value Range Interpretation Code Description Data Ariane rce(s) Supporting Document(s) BG FASTING 70 mg/dL 70-100 N [facility] ID Date Data Source [id number] 04/02/2020 09:55:00 AM EDT [facility] Name Value Range Interpretation Code Description Data Ariane rce(s) Supporting Document(s) BG FASTING 86 mg/dL 70-100 N [facility] TSH 1.160 microintl units/mL 0.358-3.740 [facility] ID Date Data Source [id number] 04/02/2020 09:22:40 AM EDT [facility] Measurements & CalculationsHeight: 63 inches (5 ft. 3 in.) 160.02 cm Weight: 120 pounds 54.55 kg Body Mass Index (BMI): 21.33BMI Interpretation: Healthy WeightBody Surface Area (BSA): 1.56Vital SignsTemperature: 98.0F 36.67C tympanic Pulse Rate: 66 beats/minuteRespiratory Rate: 16 respirations/minuteBlood Pressure: 99/68 left arm sitting automaticVital Signs performed by: Viv Logan , April 02, 2020 9:29 AMInitial Intake Information From: patientRoom #: 14Infectious Disease / T ravel ScreeningRecent travel for you or any close contacts? NoHave you had any close contact with anyone diagnosed with or under investigation for COVID-19 (coronavirus)? NoFever? NoRespiratory symptoms: cough, cold, congestion, shortness of breath, difficulty breathing? NoLoss of smell? NoLoss of taste? NoSmoking, Tobacco, Vaping or Smoke Exposure StatusSmoke Status: current every day smokerTobacco Use: YesAdv to Quit: YesDo you vape? YesCessation advice given: YesWhat is in your device? drugsFrequency: current some day vaperMenstrual HistoryAny possibility of ? NoHealthcare HistorySince y our last office visit...Have you been admitted to the hospital? NoHave you been to an emergency room (ER) or urgent care clinic? Yes - [facility] Have you seen another healthcare provider? NoHave you seen a dentist? NoIntake performed by: Viv Logan , April 02, 2020 9:26 AMRate Your HealthIn general, would you say your health is? GoodPain AssessmentAre you currently having any pain which... You would like your provider to address? No Affects your activity level? NoDepression Screening - PHQ-2Over the last two weeks, have you... Had little interest or pleasure in doing things? Not at all Been feeling down, depressed, or hopeless? Not at all PHQ-2 Score: 0Anxiety Screening - SP-2Over the last two weeks, have you been... Feeling nervous, anxious, or on edge? Not at all Unable to stop or control worrying? Not at all SP-2 Score: 0Screening, Brief Intervention, & Referral to Treatment (SBIRT)Pre-Screening Questions How many times have you have 4 or more drinks in a day? 0How many times have you used an illegal drug or used a prescription medication for a non- medical reason? 0Performed by: Viv Logan , April 02, 2020 9:26 AMPatient History Medical History:AnxietyDepressionAsthmaSeizuresLung NodulesMigrainesSurgical History: section t8YwcnfucgyqoSETVI&CColonoscopy Endoscopy "cancer removed from uterus"Family History:No known family historySocial/Personal History: Advised to Quit/Tobacco Education: YesChief ComplaintER follow up- abdominal pain- ecoliHistory of Present Illness (HPI)Was in the ER for what turned out to be an e. coli UTI and viral gastroenteritis. She is now completely better in this regard and has finished her course of Cipro.Left lower chest pain for the past week. Worse with time. Worse with bending or twisting Worse with deep breath. Has not tried ice or heat. Limited in what she can take for pain medication due to allergies.HPI performed by: Pa Mcdonough MD, April 02, 2020 9:47 AMTransitions of Care InboundProblem ReviewProblem List was reviewed and/or updated during this visit.Medication Reconciliation & ReviewMedication List was reviewed and/or updated during this visit, including review of any tirt-ybm-ellacvs medications, herbal therapies, and/or supplements.Allergy ReviewAllergy List was reviewed and/or updated during this visit.Adult Preventive CareProvider Calculated and Reviewed all Clinical Protocols for patient today. Screening Tobacco Screening: Smoking Status: current every day smoker (04/02/2020) Tobacco Use: Currently (04/02/2020) Advised to Quit: Yes (04/02/2020)Cancer Screening Mammogram Reviewed: Previous Comments: [facility] ([facility])Today's Comments: scheduled for May 2020Pap Smear/HPV TestingReviewed: Previous Comments: [facility] (02/06/2020)Today's Comments: scheduled for May 2020Review of Systems General: Complains of dizziness. Denies chills, fever. Cardiovascular: Complains of see HPI, chest pain, feeling faint. Respiratory: Denies difficulty breathing, shortness of breath. Gastrointestinal: Denies nausea, vomiting, diarrhea, constipation. Unable to vomit due to surgery.Genitourinary: Denies pain with urination, ur inary frequency, urinary urgency, incomplete emptying. Physical ExamGeneral Appearance: well nourished, well hydrated, no acute distressChest Wall: Tenderness to palpation left lower chest reproducing pain she has been having.Respiratory, Auscultation: clear to auscultation bilaterally; no rales, rhonchi, or wheezesRespiratory, Effort: no intercostal retractions or use of accessory musclesCardiovascular, Auscultation: S1, S2 audible; no murmur, rub, or gallop; RRRPeripheral Circulation: no clubbing, cyanosis, edema, or varicositiesGait & Station: normalSkin, Inspection: no rashes, lesions, or u lcerationsOrientation: oriented to time, place, and personMood & Affect: no depression, anxiety, or agitationJudgment & Insight: intactCare Management Plan Transitions of CareInboundRate Your HealthIn general, would you say your health is? GoodAssessment & Plan Problems:Added: Acute cystitis without hematuria (PKW08-D90.00) Assessment: Instructions: And viral gastroenteritis.Resolved.Recheck if symptoms recur.Assessed:Chest pain, unspecified (LXO63-B28.9) Assessment: Instructions: Most likely chest wall pain.Heat and rest.Recheck if persists.To ER if worsens.Patient Instruction s/Care Plan: Acute cystitis without hematuria: And viral gastroenteritis.Resolved.Recheck if symptoms recur.Chest pain- unspecified: Most likely chest wall pain.Heat and rest.Recheck if persists.To ER if worsens. Plan developed in collaboration with patient and/or familyMedications:RISPERIDONE 0.25 MG ORAL TABLETMAGNESIUM OXIDE 400 (240 MG) MG ORAL TABLETCARISOPRODOL 350 MG ORAL TABLETQUETIAPINE FUMARATE 400 MG ORAL TABLETQUETIAPINE FUMARATE 100 MG ORAL TABLETTOPIRAMATE 200 MG ORAL TABLETSYNTHROID 88 MCG ORAL TABLETATORVASTATIN CALCIUM 10 MG ORAL TABLETLINZESS 290 MCG ORAL CAPSULELAMICTAL 100 MG ORAL TABLETHM VITAMIN D 1000 UNIT ORAL TABLETAllergies:PENICILLIN (Critical)* ASPRIN (Critical)DOXYCYCLINE (Moderate)MOTRIN (Mild)Orders:Adult - Ofc Vst, EST, Level III [CPT-91815] Labs In-House Blood TestsDate/Time Collected: April 02, 2020 9:54 AMTest Result Reference Range Normal ValueComments: blood draw done in office, taken from right ac, tolerated well.Jyoti Ashford, April 02, 2020 9:54 AM Name Value Range Interpretation Code Description Data Ariane rce(s) Supporting Document(s) ID Date Data Source [id number] 03/23/2020 12:54:00 PM EDT [facility], ) Name Value Range Interpretation Code Description Data Ariane rce(s) Supporting Document(s) Free T4 1.10 ng/dL 0.76-1.46 Normal (applies to non-numeric resul ts) [facility] [place], ) 04/07/20 (SunApr 07) 09:18 AM MALLORY PAEZ Thyroid function is normal. 04/14/20 (SunApr 14) 01:06 PM MALLORY PAEZ No other BW results came through with this order. I checked [facility] and no results were seen for this day (03/23/20) for the other lab tests that I ordered. Not certain if perhaps they were not done. However, those tests were done at other times and this was reviewed in [facility]. Thyroid Stimulating Hormone 1.910 uIU/ML 0.358-3.740 Norm al (applies to non- numeric results) [facility] ([facility] [place], ) ID Date Data Source [id number] 03/23/2020 12:54:00 PM EDT [facility], ) Name Value Range Interpretation Code Description Data Ariane rce(s) Supporting Document(s) Lipoprotein lipase [Enzymatic activity/volume] in Seru m or Plasma Laboratory test result [facility] ([facility]) Amylase [Enzymatic activity/volume] in Serum or Plasma Laborator y test result [facility] ([facility] [place], ) ID Date Data Source [id number] 03/15/2020 01:47:15 PM EDT [facility] Measurements & CalculationsHeight: 63 inches (5 ft. 3 in.) 160.02 cm Weight: 123 pounds 55.91 kg Body Mass Index (BMI): 21.87BMI Interpretation: Healthy WeightBody Surface Area (BSA): 1.57Weight Management Education Done (Nutrition/Physical Activity)Vital SignsTemperature: 98.1FPulse Rate: 69 beats/minuteRespiratory Rate: 16 respirations/minuteBlood Pressure: 134/83 O2 Saturation: 98% Vital Signs performed by: Angella Sands MA, March 15, 2020 1:48 PMInitial Intake Information From: patientRoom #: 14Infectious Disease / Travel ScreeningRecent travel for you or any close contacts? NoHave you had any close contact with anyone diagnosed with or under investigation for COVID-19 (coronavirus)? NoFever? NoRespiratory symptoms: cough, cold, congestion, shortness of breath, difficulty breathing? NoLoss of smell? NoLoss of taste? NoSmoking, Tobacco, Vaping or Smoke Exposure StatusSmoke Status: current every day smokerTobacco Use: YesAdv to Quit: YesDo you vape? YesCessation advice given: YesWhat is in your device? drugsFrequency: current some day vaperPassive Smoke Exposure: YesMenstrual HistoryAny possibility of ? NoHealthcare HistorySince your last office visit...Have you been admitted to the hospital? No - [facility] date reported today: 10/16/2019Have you been to an emergency room (ER) or urgent care clinic? No - [facility]cEmergency room (ER) or urgent care date reported today: 03/29/2019Have you seen another healthcare provider? Yes - GI, Neuro, [facility] [place] ve[facility] provider date reported today: 01/28/2020Have you seen a dentist? No - NCFHDIntake performed by: Angella Sands MA, March 15, 2020 1:52 PMRate Your HealthIn general, would you say your health is? FairPain AssessmentAre you currently having any pain which... You would like your provider to address? No Affects your activity level? NoDepression Screening - PHQ-2Over the last two weeks, have you... Had little interest or pleasure in doing things? Not at all Been feeling down, depressed, or hopeless? Not at all PHQ-2 Score: 0Anxiety Screening - SP-2Over the last two weeks, have you been... Feeling nervous, anxious, or on edge? Not at all Unable to stop or control worrying? Not at all SP-2 Score: 0Screening, Brief Intervention, & Referral to Treatment (SBIRT)Pre-Screening Questions How many times have you have 4 or more drinks in a day? 0How many times have you used an illegal drug or used a prescription medication for a non-medical reason? 365Performed by: Angella Sands MA, March 15, 2020 1:53 PMPatient History Medical History:AnxietyDepressionAsthmaSeizuresLung NodulesMigrainesSurgical History: section x0JtniaerxmyuNHFPV&CColonoscopy Endoscopy "cancer removed from uterus"Family History:No known family historySocial/Personal History: Advised to Quit/Tobacco Education: YesChief Complaintwould like labs done and ct ordered History of Present Illness (HPI)Had a CT 02/06/20 which showed an ill defined density. They recomended 3 months follow up. She is going to be travelling next month. She is asymptomatic from this standpoint.Ongoing i ssues with anxiety and depression. She has been struggling more with this lately. Seeing Dr. Stafford and Abbi Snyder for this. Had suicidal ideation a week or two ago surrounding using her car but this has not been an issue for a week or to. She has gotten rid of her car since. She got frustrated and walked out of her last appointment with Dr. Stafford. She has rescheduled for 2 weeks [address] now [address] Dr. Stafford and has an appointment with Abbi in 4 days.History of hypothyroidism and dyslipidemia and we have not checked blood tests for this in a while.HPI performed by: Pa Mcdonough MD, March 15, 2020 2:25 PMTransitions of Care InboundAdult Preventive CareProvider Calculated and Reviewed all Clinical Protocols for patient today. Screening Tobacco Screening: Smoking Status: current every day smoker (03/15/2020) Tobacco Use: Currently (03/15/2020) Advised to Quit: Yes (03/15/2020)Labs/Meds/Other Counseling- Nutrition and Physical Activity:BMI Interpretation: Healthy Weight (03/15/2020) Counseling: Done (03/15/2020) Physical Activity: Done (03/15/2020)Cancer Screening Pap Smear/HPV TestingReviewed: Previous Comments: women to women 2 yrs ago (02/06/2020)Review of Systems General: Denies chills, fever. Cardiovascular: Denies chest pain. Respiratory: Denies shortness of breath. Gastrointestinal: Denies constipation. Genitourinary: Denies pain with urination. Physical ExamGeneral Appearance: well nourished, well hydrated, no acute distressRespiratory, Auscultation: clear to auscultation bilaterally; no rales, rhonchi, or wheezesRespiratory, Effort: no intercostal retractions or use of accessory musclesCardiovascular, Auscultation: S1, S2 audible; no murmur, rub, or gallop; RRRGait & Station: normalOrientation: oriented to time, place, and personMood & Affect: no depression, anxiety, or agitationJudgment & Insight: intactCare Management Plan Transitions of CareInboundRate Your HealthIn general, would you say your health is? FairAssessment & Plan Problems:Added: Solitary nodule of lung (ICD-793.11) (GAZ56-Z42.1) Assessment: Instructions: Recheck lung CT soon.Assessed:Post traumatic stress disorder (ICD-309.81) (QAK78-H08.10) Assessment: Instructions: Having more issues lately.Recheck as scheduled with counsellor and with Dr. Stafford.Sooner if worse.Hypothyroidism, unspecified (ZVC10-D73.9) Assessment: Instructions: And dyslipidemia.Continue current m edications and recheck labs soon.Recheck here 1-2 months, sooner as needed.Patient Instructions/Care Plan: Post traumatic stress disorder: Having more issues lately.Recheck as scheduled with counsellor and with Dr. Stafford.Sooner if worse.Solitary nodule of lung: Recheck lung CT soon.Hypothyroidism- unspecified: And dyslipidemia.Continue current medications and recheck labs soon.Recheck here 1-2 months, sooner as needed. Plan developed in collaboration with patient and/or familyOrders:Adult - Ofc Vst, EST, Level III [CPT-70736] CT COLONOGRPHY DX IMAGE POSTPROCESS W/CONTRAST [CPT- 08889] COMP METABOLIC PANEL [CPT-22394] TSH [CPT-27233] LIPID PANEL [CPT-51255] Name Value Range Interpretation Code Description Data Ariane rce(s) Supporting Document(s) ID Date Data Source [id number] 02/12/2020 09:59:12 AM EDT [facility] In-House Blood TestsDate/Time Colle cted: February 12, 2020 9:20 AMTest Result Reference Range Normal ValueComments: blood draw done in office, taken from left ac, tolerated well.Jyoti Ashford, February 12, 2020 9:59 AMAssessment & Plan Orders:[id number] Vst-Est Level I [CPT-24109] 11443 - Venipuncture [CPT-67606] Name Value Range Interpretation Code Description Data Ariane rce(s) Supporting Document(s) ID Date Data Source [id number] 02/12/2020 09:20:00 AM EDT [facility] Name Value Range Interpretation Code Description Data Ariane rce(s) Supporting Document(s) HCT 45.8 % 36.0-47.0 N [facility] HGB 14.4 g/dL 12.0-15.5 N [facility] MCH 31.4 G/DL pg 32.0-36.5 L [facility] MCHC 31.1 PG % 27.0-33.0 N [facility] PLATELETS 331 10 10*3/mm3 150-450 N [facility] RBC 4.63 10 10*6/mm3 4.00-5.40 N [facility] RDW 15.6 % 11.5-14.5 H [facility] WBC TOTAL 9.9 4.0-10.0 N [facility] ID Date Data Source [id number] 02/12/2020 09:20:00 AM EDT [facility] Name Value Range Interpretation Code Description Data Ariane rce(s) Supporting Document(s) BG FASTING 82 mg/dL 70-100 N [facility] Health ID Date Data Source [id number] 02/06/2020 01:44:34 PM EDT [facility] Measurements & CalculationsHeight: 63 inches (5 ft. 3 in.) 160.02 cm Weight: 119 pounds 6 oz. 54.26 kg Body Mass Index (BMI): 21.22BMI Interpretation: Healthy WeightBody Surface Area (BSA): 1.55Weight Management Education Done (Nutrition/Physical Activity)Vital SignsTemperature: 97.4FPulse Rate: 106 beats/minuteRespiratory Rate: 18 respirations/minuteBlood Pressure: 120/79 left arm sitting automaticO2 Saturation: 98% room airVital Signs performed by: Tracie Lara LPN, February 06, 2020 2:01 PMMultiple Vital SignsInitial Intake Information from: patientRoom #: 1Smoking, Tobacco, Vaping or Smoke Exposure StatusSmoke Status: current every day smokerTobacco Use: YesAdv to Quit: YesDo you vape? NoWhat is in your device? nicotine and drugsFrequency: former vaperPassive Smoke Exposure: YesMenstrual HistoryComments: ablasion 2008Healthcare HistorySince your last office visit...Have you been admitted to the hospital? NoHave you been to an emergency room (ER) or urgent care clinic? NoHave you seen another healthcare provider? Yes - GI, NeuroHave you seen a dentist? Yes - NCFHDRate Your HealthIn general, would you say your health is? FairPain AssessmentAre you currently having any pain which... You would like your provider to address? Yes Affects your activity level? YesDepression Screening - PHQ-2Over the last two weeks, have you... Had little interest or pleasure in doing things? Not at all Been feeling down, depressed, or hopeless? Not at all PHQ-2 Score: 0Anxiety Screening - SP-2Over the last two weeks, have you been... Feeling nervous, anxious, or on edge? Nearly every day Unable to stop or control worrying? Nearly every day SP-2 Score: 6Infectious Disease / Travel ScreeningRecent travel for you or any close contacts? NoHave you had any close contact with anyone diagnosed with or under investigation for COVID-19 (coronavirus)? NoHave you had any of the following symptoms recently? Fever? NoRespiratory symptoms: cough, cold, congestion, shortness of breath, difficulty breathing? NoGeneralized Anxiety Disorder 7-Item Screening (SP-7)Answer Guide:0 = Not at all1 = Several days2 = Over half the days3 = Nearly every dayOver the last 2 weeks, how often have you been bothered by the following problems?Feeling nervous, anxious, or on edge: 3Not being able to stop or control worryinWorrying too much about different things: 2Trouble relaxinBeing so restless that it's hard to sit still: 3Becoming easily annoyed or irritable: 3Feeling afraid as if something awful mi ght happen: 1Answer Guide:0 = Not difficult at all1 = Somewhat difficult2 = Very difficult3 = Extremely difficultHow difficult have these made it for you to do your work, take care of things at home, or get along with other people? 1GAD-7 Screening Results SP-2 Score: 6GAD-7 Score: 18Functional Impairment: Somewhat difficultRecommendation: Severe anxietyPain AssessmentPain ScaleNumeric Rating Scale: 8 / 10Location: chestDuration: weeksCharacter/Quality: sharp and dullIs the pain radiating? NoScreening, Brief Intervention, & Referral to Treatment (SBIRT)Pre-Screening Questions How many times have you have 4 or more drinks in a day? 0How many times have you used an illegal drug or used a prescription medication for a non-medical reason? 365Performed by: Tracie Lara LPN, February 06, 2020 1:52 PMPatient History Medical History:AnxietyDepressionAsthmaSeizuresLung NodulesMigrainesSurgical History: section w3OxnlrarfdfwXDKCJ&CColonoscopy Endoscopy "cancer removed from uterus"Family History:No known family historySocial/Personal History: Advised to Quit/Tobacco Education: YesChief Complaintleg numbnessHistory of Present Illness (HPI)49 yo female here for ongoing leg numbne ss.Pt states her GI told her there was issues with her right lung. She is still having chest pain.Pt states last night she had a nosebleed and she has never had one before. Lasted approximately 3-4 minutes, accompanied by headache. Pt states migraines are getting worse. Pt states her neurologist Dr. Hinkle is closed due to COVID19. Pt states she feels extremely aggitated, states her medications with Dr. Izaguirre aren't working. Pt feels alot of anxiety, feels she is on "pins and needles"'. Denies specific trigger. There is a question on her clonazepam being stopped., states she tried to talk to him about this at last appt but it was deferred to the future appt. Pt reports that she feels severely anxious without that, requests this medication until she sees Dr. Izaguirre next.Transitions of Care InboundProblem ReviewProblem List was reviewed and/or updated during this visit.Medication Reconciliation & ReviewMedication List was reviewed and/or updated during this visit, including review of any wwtl-lyi-bnbsvsg medications, herbal therapies, and/or supplements.Allergy ReviewAllergy List was reviewed and/or updated during this visit.Adult Preventive CareProvider Calculated and Reviewed all Clinical Protocols for patient today. Screening Tobacco Screening: Smoking Status: current every day smoker (02/06/2020) Tobacco Use: Currently (02/06/2020) Advised to Quit: Yes (02/06/2020)Labs/Meds/Other Counseling-Nutrition and Physical Activity:BMI Interpretation: Healthy Weight (02/06/2020) Counseling: Done (02/06/2020) Physical Activity: Done (02/06/2020)Cancer Screening Pap Smear/HPV TestingReviewed: Previous Comments: women to women almost 2 yrs ago. (12/09/2019)Today's Comments: women to women 2 yrs agoReview of Systems General: Complains of see HPI, headache. Denies loss of appetite, chills, dizziness, fatigue, fever, feeling ill. Ears/Nose/Throat: Complains of see HPI, nosebleeds. Denies earache, decreased hearing, nasal congestion, runny nose, sore throat, difficulty swallowing, bleeding gums, swollen glands. Cardiovascular: Complains of see HPI, chest pain. Denies palpitations, feeling faint, SOB upon lying down, peripheral edema, elevated blood pressure. Re spiratory: Denies cough, difficulty breathing, shortness of breath, coughing up blood, wheezing. Gastrointestinal: Denies nausea, vomiting, diarrhea, pain or discomfort. Neurologic: Complains of see HPI, weakness, numbness/tingling. Psychiatric: Complains of anxiety, feeling stressed. Denies depression, mental disturbance, hallucinations, paranoia, hearing voices. Physical ExamGeneral Appearance: well nourished, well hydrated, no acute distress, but does appear somewhat aggitatedEyes, External: conjunctivae and lids normal, EOMINeck: supple, no masses, trachea midline, full range of motion of neck, no carotid bruitsThyroid: no nodules, masses, tenderness, or enlargementRespiratory, Auscultation: clear to auscultation bilaterally; no rales, rhonchi, or wheezesRespiratory, Effort: no intercostal retractions or use of accessory musclesCardiovascular, Auscultation: S1, S2 audible; no murmur, rub, or gallop; RRR at time of examAbdomen: soft, non-tender, no masses, bowel sounds normalGait & Station: normalOrientation: oriented to time, place, and personMood & Affect: speech clear, good eye contact, affect full range, anxious at at times somewhat aggitated appearing, fidgity and restlessJudgment & Insight: intactCare Management Plan Transitions of CareInboundRate Your HealthIn general, would you say your health is? FairAssessment & Plan Problems:Added: Chronic tension-type headache (ICD-339.12) (BKD89-Q81.229) Assessment: Instructions: Update labs. Continue current medications as prescribed by your neurologist. Reviewed the role of emotional stress, physical tension, and worsening headaches. Please try to add massage, heating, gentle stretching, yoga.Assessed:Numbness of lower limb (ICD-782.0) (XBM86-U96.0) Assessment: Instructions: As above.Chest pain, unspecified (TIX40-O84.9) Assessment: Instructions: Will monitor, appears secondary to anxiety. EKG and CT chest do not correlate with complaint of chest pain.Bipolar II disorder (ICD-296.89) (IKC50-U06.81) Assessment: Instructions: Continue per your mental health specialists.Anxiety (ICD-300.00) (YQA14-S93.9) Assessment: Instructions: Significant heightened anxiety at this time with no prn medication that I can see. Will give her a few days worth of Klonipin to get her to Dr. Izaguirre's appt on 02/12/2020. Reiterated medication compliance and truthfullness at all times about all medications both prescribed and supplemental.Lung nodule (ICD-518.89) (OXU26-W43.8) Assessment: Instructions: Repeat CT chest 04/2020 for monitoring.Patient Instructions/Care Plan: Chronic tension-type headache: Update labs. Continue current medications as prescribed by your neurologist. Reviewed the role of emotional stress, physical tension, and worsening headaches. Please try to add massage, heating, gentle stretching, yoga.Numbness of lower limb: As above.Chest pain- unspecified: Will monitor, appears secondary to anxiety. EKG and CT chest do not correlate with complaint of chest pain.Bipolar II disorder: Continue per your mental health specialists.Anxiety: Significant heightened anxiety at this time with no prn medication that I can see. Will give her a few days worth of Klonipin to get her to Dr. Izaguirre's appt on 02/12/2020. Reiterated medication compliance and truthfullness at all times about all medications both prescribed and supplemental.Lung nodule: Repeat CT chest 04/2020 for remy dunne. Plan developed in collaboration with patient and/or familyMedications:CLONAZEPAM 1 MG ORAL TABLETMAGNESIUM OXIDE 400 (240 MG) MG ORAL TABLETCARISOPRODOL 350 MG ORAL TABLETQUETIAPINE FUMARATE 400 MG ORAL TABLETQUETIAPINE FUMARATE 100 MG ORAL TABLETTOPIRAMATE 200 MG ORAL TABLETSYNTHROID 88 MCG ORAL TABLETATORVASTATIN CALCIUM 10 MG ORAL TABLETLINZESS 290 MCG ORAL CAPSULELAMICTAL 100 MG ORAL TABLETHM VITAMIN D 1000 UNIT ORAL TABLETMedication Changes:Added: CARISOPRODOL 350 MG ORAL TABLET-1 tab po tid prnMAGNESIUM OXIDE 400 (240 MG) MG ORAL TABLET-1 tab po in amNew Prescription:CLONAZEPAM 1 MG ORAL TABLET-Take 1 tablet q 8 hrs prn anxiety; MDD 3mg Qty: 12[Tablet] Refills: 0 Method: ElectronicAllergies:PENICILLIN (Critical)* ASPRIN (Critical)DOXYCYCLINE (Moderate)MOTRIN (Mild)Orders:COMP METABOLIC PANEL [CPT-09156] CBC W/DIFF [CPT-56511] Adult - Ofc Vst, EST, Level III [CPT-51380] Follow-Up Return to clinic: as needed, as scheduled for follow upClinical Visit Summary CompletedMedications:CLONAZEPAM 1 MG ORAL TABLET (CLONAZEPAM) Take 1 tablet q 8 hrs prn anxiety; MDD 3mg #12[Tablet] x 0 Route:ORAL Entered and Authorized by: Jaqueline BOWIE Method used: Electronically to [facility]* (retail) [address] [place] [address] Fax: Note to Pharmacy: Route: ORAL; Indications: BIPOLAR II DISORDER RxID: [id number] signed by Jaqueline BOWIE on 02/12/2020 at 10:09 AM Name Value Range Interpretation Code Description Data Ariane rce(s) Supporting Document(s) ID Date Data Source [id number] 01/13/2020 12:56:51 PM EDT [facility] Measurements & CalculationsHeight: 63 inches 160.02 cm Weight: 118.6 pounds 53.91 kg Body Mass Index (BMI): 21.08BMI Interpretation: Healthy WeightBody Surface Area (BSA): 1.55Weight Management Education Done (Nutrition/Physical Activity)Vital SignsTemperature: 97.8F 36.56C tympanic Pulse Rate: 109 beats/minuteRespiratory Rate: 16 respirations/minuteBlood Pressure: 131/88 left arm sitting automaticO2 Saturation: 100% room airVital Signs performed by: Valorie Byrne , January 13, 2020 1:05 PMInitial Intake Information from: patientRoom #: 1Smoking, Tobacco, Vaping or Smoke Exposure StatusSmoke Status: current every day smokerTobacco Use: YesAdv to Quit: YesDo you vape? YesWhat is in your device? nicotine and drugsFrequency: current every day vaperPassive Smoke Exposure: YesMenstrual HistoryComments: menopauseHealthcare HistorySince your last office visit...Have you been admitted to the hospital? Yes - [facility]-Have you been to an emergency room (ER) or urgent care clinic? Yes - smcHave you seen another healthcare provider? NoHave you seen a dentist? Yes - ncfhcIntake performed by: Valorie Byrne , January 13, 2020 1:00 PMRate Your HealthIn general, would you say your health is? FairPain AssessmentAre you currently having any pain which... You would like your provider to address? No Affects your activity level? NoDepression Screening - PHQ-2Over the last two weeks, have you... Had little interest or pleasure in doing things? Not at all Been feeling down, depressed, or hopeless? Not at all PHQ-2 Score: 0Anxiety Screening - SP-2Over the last two weeks, have you been... Feeling nervous, anxious, or on edge? Not at all Unable to stop or control worrying? Nearly every day SP-2 Score: 3Infectious Disease / Travel ScreeningRecent travel for you or any close contacts? NoHave you had any close contact with anyone diagnosed with or under investigation for COVID-19 (coronavirus)? NoHave you had any of the following symptoms recently? Fever? NoRespiratory symptoms: cough, cold, congestion, shortness of breath, difficulty breathing? NoGeneralized Anxiety Disorder 7-Item Screening (SP-7)Answer Guide:0 = Not at all1 = Several days2 = Over half the days3 = Nearly every dayOver the last 2 weeks, how often have you been bothered by the following problems?Feeling nervous, anxious, or on edge: 0Not being able to stop or control worryinWorrying too much about different things: 3Trouble relaxinBeing so restless that it's hard to sit still: 3Becoming easily annoyed or irritable: 3Feeling afraid as if something awful might happen: 3Answer Guide:0 = Not difficult at all1 = Somewhat difficult2 = Very difficult3 = Extremely difficultHow difficult have these made it for you to do your work, take care of things at home, or get along with other people? 1GAD-7 Screening Results SP-2 Score: 3GAD-7 Score: 18Functional Impairment: Somewhat difficultRecommendation: Severe anxietyScreening, Brief Intervention, & Referral to Treatment (SBIRT)Patient declined SBIRT screening.Performed by: Valorie Byrne , January 13, 2020 1:03 PMPatient History Medical History:AnxietyDepressionAsthmaSeizuresLung NodulesMigrainesSurgical History: section u5ZoarkfqppuqSWJDK&CColonoscopy Endoscopy "cancer removed from uterus"Family History:No known family historySocial/Personal History: Advised to Quit/Tobacco Education: YesChief Complainter follow upHistory of Present Illness (HPI)Pt is a 49 y/o female, presents for [facility] ER/hospital follow-up.Pt was admitted to [facility] ER 01/08/2020-01/09/2020 for altered mental status. Pt was transferred by EMS from [facility], where she had presented for an appointment. There was concern from ER visit that patient had ingested 4 Somas and was kept for monitorin 24 hrs per poison control. Pt was found to have urine drug screen positive for benzos (she is prescribed Klonipin), cannabanoids (she is pres cribed medical marijuana), and cocaine. Pt adamently denies every using illicit drugs and states she has never used cocaine. Pt is adament that the episode was secondary to low blood pressure and states that was why she was lethargic and doesn't recall the event, pt also states hypotension was the reason for the 24 hrs hospital observation of her. Has a follow-up with Dr. Izaguirre tomorrow. Pt reports she is scheduled with her neurologist on 01/19/2020 in [place]. Pt reports she typically take Soma twice daily, third dose is only if "I absolutely need it". Pt states she did not take more than prescribed. Pt questions some ongoin left leg numbness, was seen 12/09/2019 by this provider and had mentioned this concern; at that visit she was advised to call her neurologist to discuss but apparently never did. Pt reports no left arm weakness, but when questioned she mentioned yesterday experiencing left sided chest pain that radiated into her shoulder and lasted all day. She did not seen emergency evaluation and had no accompanying symptoms. Transitions of Care InboundProblem ReviewProblem List was reviewed and/or updated during this visit.Medication Reconciliation & ReviewMedication List was reviewed and/or updated during this visit, including review of any klla-kum-abqbzgb medications, herbal therapies, and/or supplements.Allergy ReviewAllergy List was reviewed and/or updated during this visit.Adult Preventive CareScreening Tobacco Screening: Smoking Status: current every day smoker (01/13/2020) Tobacco Use: Currently (01/13/2020) Advised to Quit: Yes (01/13/2020)Labs/Meds/Other Counseling-Nutrition and Physical Activity:BMI Interpretation: Healthy Weight (01/13/2020) Counseling: Done (01/13/2020) Physical Activity: Done (01/13/2020)Review of Systems General: Denies loss of appetite, chills, dizziness, fatigue, fever, headache, feeling ill, sweats. Cardiovascular: Complains of see HPI, chest pain. Denies palpitations, feeling faint, SOB upon lying down, peripheral edema, elevated blood pressure. Respiratory: Denies cough, difficulty breathing, shortness of breath. Gastrointestinal: Denies nausea, vomiting, diarrhea, constipation, pain or discomfort. Musculoskeletal: Denies joint pain, leg pain, joint swelling, muscle aches, recent injury. Neurologic: Complains of weakness, numbness/tingling. Denies slurred speech, feeling faint. Psychiatric: Complai ns of anxiety. Denies depression. Physical ExamGeneral Appearance: well nourished, well hydrated, no acute distressEyes, External: conjunctivae and lids normal, EOMIChest Wall: non-tender, no massesRespiratory, Auscultation: clear to auscultation bilaterally; no rales, rhonchi, or wheezesRespiratory, Effort: no intercostal retractions or use of accessory musclesCardiovascular, Auscultation: S1, S2 audible; no murmur, rub, or gallop; RRRPeripheral Circulation: no clubbing, cyanosis, edema, or varicositiesAbdomen: soft, non- tender, no masses, bowel sounds normalGait & Station: normal, patellar reflexes 1-2+ b/l, distal sensation intactOrientation: oriented to time, place, and personMood & Affect: speech clear, good eye contact, affect full range, became somewhat argumentative when discussing the urine drug screen and reason for hospitalizationJudgment & Insight: seems intactCare Management Plan Transitions of CareInboundRate Your HealthIn general, would you say your health is? FairAsse ssment & Plan Problems:Added: Chest pain, unspecified (YVE67-V21.9) Assessment: Instructions: EKG did not show any acute coronary concerns today, sinus rhyhtm, normal EKG per automated report. ER for chest pain lasting more than a few fleeting seconds/minutes. Reiterated the importance of ER for chest pain that comes on suddenly and lasts all day like yesterday.Numbness of lower limb (ICD-782.0) (RUR37-M76.0) Assessment: Instructions: Please discuss with your neurologist. This is not new in the last few days, present for > 1 month and unchanged.Assessed:Bipolar II disorder (ICD-296.89) (GNR61-V77.81) Assessment: Instructions: Continue per Dr. Izaguirre as scheduled tomorrow.Post traumatic stress disorder (ICD-309.81) (SLZ06-A99.10) Assessment: Instructions: As above.SEIZURE DISORDER (ICD-780.39) (NBH86-C17.9) Assessment: Instructions: Continue per your neurologist. Keep appt as scheduled 01/19/2020.Removed:Generalized skin eruption due to drugs and medicaments taken internally & Adverse effect of unspecified drugs, medicaments and biological substances, initial encounter (ICD-693.0) (ICD10- L27.0), Acute upper respiratory infection, unspecified (DMH85-G18.9), Bipolar Disorder (ICD-296.80) (ITY60-H33.9)Patient Instructions/Care Plan: Bipolar II disorder: Continue per Dr. Izaguirre as scheduled tomorrow.Post traumatic stress disorder: As above.Chest pain- unspecified: EKG did not show any acute coronary concerns today, sinus rhyhtm, normal EKG per automated report. ER for chest pain lasting more than a few fleeting seconds/minutes. Reiterated the importance of ER for chest pain that comes on suddenly and lasts all day like yesterday.SEIZURE DISORDER: Continue per your neurologist. Keep appt as scheduled 01/19/2020.Numbness of lower limb: Please discuss with your neurologist. This is not new in the last few days, present for > 1 month and unchanged. Plan developed in collaboration with patient and/or familyMedications:SYNTHROID 88 MCG ORAL TABLETTRIAMCINOLONE ACETONIDE 0.1 % EXTERNAL OINTMENTKLONOPIN 1 MG ORAL TABLETATORVASTATIN CALCIUM 10 MG ORAL TABLETLEVOTHYROXINE SODIUM 100 MCG ORAL TABLETLINZESS 290 MCG ORAL CAPSULELAMICTAL 100 MG ORAL TABLETCELEBREX 200 MG ORAL CAPSULEHM VITAMIN D 1000 UNIT ORAL TABLETPROAIR HFA 108 (90 Base) MCG/ACT INHALATION AEROSOL SOLUTIONVENLAFAXINE HCL ER 150 MG ORAL CAPSULE EXTENDED RELEASE 24 HOURSUMATRIPTAN SUCCINATE 6 MG/0.5ML SUBCUTANEOUS SOLUTIONMedication Changes:Removed:TRAZODONE HCL 150 MG ORAL TABLET-One po qHS.Allergies:PENICILLIN (Critical)* ASPRIN (Critical)DOXYCYCLINE (Moderate)MOTRIN (Mild)Orders:Routine ECG with at least 12 leads; with interpretation and report [CPT-18384] Adult - Ofc Vst, EST, Level III [CPT-62209] Follow-Up Return to clinic: in 3 months for follow upAdditional Follow-Up: 3 month follow-up with Dr. Chapmaninical Visit Summary Completed Name Value Range Interpretation Code Description Data Ariane rce(s) Supporting Document(s) ID Date Data Source [id number] 12/09/2019 10:17:52 AM [facility] Measurements & CalculationsHeight: 66 inches (5 ft. 6 in.) 167.64 cm Weight: 122 pounds 55.45 kg Body Mass Index (BMI): 19.76BMI Interpretation: Healthy WeightBody Surface Area (BSA): 1.62Weight Management Education Done (Nutrition/Physical Activity)Vital SignsTemperature: 97.6F oral Pulse Rate: 80 beats/minuteRespiratory Rate: 17 respirations/minuteBlood Pressure: 100/71 left arm sitting automaticO2 Saturation: 98% room airVital Signs performed by: Tracie Lara LPN, December 09, 2019 10:36 AMVital Signs performed by: Jaqueline BOWIE, December 09, 2019 10:40 AMInitial Intake Information from: patientRoom #: 9Smoking, Tobacco, Vaping or Smoke Exposure StatusSmoke Status: current every day smokerTobacco Use: YesAdv to Quit: YesDo you vape? YesWhat is in your device? nicotine and drugsFrequency: current every day vaperPassive Smoke Exposure: YesHealthcare HistorySince your l ast office visit...Have you been admitted to the hospital? NoHave you been to an emergency room (ER) or urgent care clinic? NoHave you seen another healthcare provider? Yes - neuro, gastro, pulmHave you seen a dentist? Yes - [facility] [place]Rate Your HealthIn general, would you say your health is? GoodPain AssessmentAre you currently having any pain which... You would like your provider to address? No Affects your activity level? NoDepression Screening - PHQ-2Over the last two weeks, have you... Had little interest or pleasure in doing things? Nearly every day Been feeling down, depressed, or hopeless? Nearly every day PHQ-2 Score: 6Anxiety Screening - SP-2Over the last two weeks, have you been... Feeling nervous, anxious, or on edge? Not at all Unable to stop or control worrying? Not at all SP-2 Score: 0Infectious Disease / Travel ScreeningRecent travel for you, your family, and/or any sexual partners? NoPHQ-9 1. Over the last 2 weeks, patient reports the following frequency of symptoms: a. Little interest or pleasure in doing things -Nearly every day b. Feeling down, depressed, or hopeless -Nearly every day c. Trouble falling asleep, staying asleep, or sleeping too much -Nearly every day d. Feeling tired or having little energy -More than half the days e. Poor appetite or overeating -Nearly every day f. Feeling bad about yourself, feeling that you are a failure, or feeling that you have let yourself or your family down -Nearly every day g. Trouble concentrating on things such as reading the newspaper or wa tching television - Nearly every day h. Moving or speaking so slowly that other people could have noticed. Or being so fidgety or restless that you have been moving around a lot more than usual -More than half the days i. Thinking that you would be better off or that you want to hurt yourself in some way -Several days2. If you checked off any problems, how difficult have these problems made it for you to do your work, take care of things at home, or get along with other people? -Very DifficultToday's PHQ-9 Results Score: 23 Severity: Severe Diagnosis Recommendation: Major Depression Functional Impairment: Very DifficultScreening, Brief Intervention, & Referral to Treatment (SBIRT)Pre- Screening Questions How many times have you have 4 or more drinks in a day? 0How many times have you used an illegal drug or used a prescription medication for a non-medical reason? 365Performed by: Tracie Lara LPN, December 09, 2019 10:25 AMPatient History Medical History:AnxietyDepressionAsthmaSeizuresLung NodulesMigrainesSurgical History: section c3EnpmyxrvrlfOBAFS&CColonoscopy Endoscopy "cancer removed from uterus"Family History:No known family historySocial/Personal History: Advised to Quit/Tobacco Education: YesChief Complaintfu for seizures, left leg is dragging, weightlossHistory of Present Illness (HPI)49 yo female here for follow-up for seizures. Pt states her left leg has been dragging lately. Pt reports a few weeks ago she had chest pains that radiated into her left arm and left leg. She did not seek emergency care, pain resolved. Since then she notes the left leg feels like it has been dragging. Pt is concerned if she had a stroke. Pt sees neurology, last 1.5 weeks ago and next in January 2020. Pt states he is aware that she has been having seizures, but is not aware of the leg concern. Pt repo rts she is scheduled in January for a seizure monitor and what sounds to be an EEG monitoring. Pt states is currently homeless and staying with a friend who she said she has to beg to let her stay there. Kasey notified to reach out to her tomorrow per patient request.HPI performed by: Jaqueline BOWIE, December 09, 2019 10:41 AMTransitions of Care InboundProblem ReviewProblem List was reviewed and/or updated during this visit.Medication Reconciliation & ReviewMedication List was reviewed and/or updated during this visit, including review of any rzpd-zau-fczlqeb medications, herbal therapies, and/or supplements.Allergy ReviewAllergy List was reviewed and/or updated during this visit.Adult Preventive CareProvider Calculated and Reviewed all Clinical Protocols for patient today. Screening Tobacco Screening: Smoking Status: current every day smoker (12/09/2019) Tobacco Use: Currently (12/09/2019) Advised to Quit: Yes (12/09/2019)Labs/Meds/Other Counseling-Nutrition and Physical Activity:BMI Interpretation: Healthy Weight (12/09/2019) Counseling: Done (12/09/2019) Physical Activity: Done (12/09/2019)Cancer Screening Pap Smear/HPV TestingReviewed: Previous Comments: 2019 (10/16/2019)Today's Comments: [facility] women almost 2 yrs ago.Review of Systems General: Denies chills, dizziness, fatigue, fever, headache, feeling ill. Cardiovascular: denies further chest pain, palpitations, feeling faintRespiratory: Denies cough, shortness of breath, wheezing. Gastrointestinal: Denies nausea, vomiting, diarrhea, constipation. Musculoskeletal: Complains of muscle weakness. Denies stiffness, recent injury. Neurologic: Complains of see HPI, weakness, seizures. Denies paralysis on one side, paralysis on both sides. Psychiatric: Complains of depression. Denies hallucinations, paranoia. Physical ExamGeneral Appearance: well nourished, well hydrated, no acute distressEyes, External: conjunctivae and lids normal, EOMIRespiratory, Auscultation: clear to auscultation bilaterally; no rales, rho nchi, or wheezesCardiovascular, Auscultation: S1, S2 audible; no murmur, rub, or gallop; RRRPeripheral Circulation: no clubbing, cyanosis, edema, or varicositiesAbdomen: soft, non-tender, no masses, bowel sounds normalGait & Station: normal, patellar reflexes 2+ bilaterally, distal sensation intactLower Extremity, Right: normal ROM and strength, no joint enlargement or tendernessLower Extremity, Left: normal ROM and strength, no joint enlargement or tendernessOrientation: oriented to time, place, and personMood & Affect: no depression, anxiety, or agitation, possibly mildly manicJudgment & Insight: seems intactCare Management Plan Transitions of CareInboundRate Your HealthIn general, would you say your health is? GoodAssessment & Plan Problems:Added: Bipolar Disorder (ICD-296.80) (UZD46-V51.9)Assessed:Bipolar II disorder (ICD- 296.89) (IRE22-U29.81) Assessment: Instructions: Continue per your mental health specialists. I will send a note to Dr. Izaguirre regarding your venlaf axine and clarifying that dose.Hypothyroidism, unspecified (AHF10-J20.9) Assessment: Instructions: Stable on current medication dose. No changes at this time.Hyperlipidemia, unspecified (OPO24-D36.5) Assessment: Instructions: Stable on current medication dose. No changes at this time.SEIZURE DISORDER (ICD-780.39) (RTD94-B13.9) Assessment: Instructions: Call your neurologist TODAY to discuss your symptoms. They may want to see you sooner. If you have a sudden change in symptoms, you need to be seen in the ER without waiting.Patient Instructions/Care Plan: Bipolar II disorder: Continue per your mental health specialists. I will send a note to Dr. Izaguirre regarding your venlafaxine and clarifying that dose.Hypothyroidism- unspecified: Stable on current medication dose. No changes at this time.Hyperlipidemia- unspecified: Stable on current medication dose. No changes at this time.SEIZURE DISORDER: Call your neurologist TODAY to discuss your symptoms. They may want to see you sooner. If you have a sudden change in symptoms, you need to be seen in the ER without waiting. Plan developed in collaboration with patient and/or familyMedications:SYNTHROID 88 MCG ORAL TABLETTRIAMCINOLONE ACETONIDE 0.1 % EXTERNAL OINTMENTKLONOPIN 1 MG ORAL TABLETATORVASTATIN CALCIUM 10 MG ORAL TABLETLEVOTHYROXINE SODIUM 100 MCG ORAL TABLETLINZESS 290 MCG ORAL CAPSULELAMICTAL 100 MG ORAL TABLETCELEBREX 200 MG ORAL CAPSULEHM VITAMIN D 1000 UNIT ORAL TABLETPROAIR HFA 108 (90 Base) MCG/ACT INHALATION AEROSOL SOLUTIONVENLAFAXINE HCL ER 150 MG ORAL CAPSULE EXTENDED RELEASE 24 HOURSUMATRIPTAN SUCCINATE 6 MG/0.5ML SUBCUTANEOUS SOLUTIONTRAZODONE HCL 150 MG ORAL TABLETMedication Changes:Removed:TOPAMAX 200 MG ORAL TABLET-take one tab po daily, MYRBETRIQ 25 MG ORAL TABLET EXTENDED RELEASE 24 HOUR-take one tab po daily, SAPHRIS 5 MG SUBLINGUAL TABLET SUBLINGUAL-bidAllergies:PENICILLIN (Critical)* ASPRIN (Critical)DOXYCYCLINE (Moderate)MOTRIN (Mild)Orders:Adult - Ofc Vst, EST, Level III [CPT-26911] Follow-Up Return to clinic: in 90 days for follow upAdditional Follow-Up: hypothyroidClinical Visit Summary CompletedPatient in hospice care: no] Name Value Range Interpretation Code Description Data Ariane rce(s) Supporting Document(s) ID Date Data Source [id number] 12/03/2019 11:57:00 AM EST [facility] Name Value Range Interpretation Code Description Data Ariane rce(s) Supporting Document(s) T4, FREE 1.43 ng/dL 0.76-1.46 N [facility] TSH 0.395 microintl units/mL 0.358-3.740 N [facility] ID Date Data Source [id number] 10/16/2019 04:04:52 PM [facility] Measurements & CalculationsHeight: 66 inches (5 ft. 6 in.) 167.64 cm Weight: 126 pounds 4 oz. 57.39 kg Body Mass Index (BMI): 20.45BMI Interpretation: Healthy WeightBody Surface Area (BSA): 1.65Weight Management Education Done (Nutrition/Physical Activity)Vital SignsTemperature: 97.6F 36.44C oral Pulse Rate: 93 beats/minuteRespiratory Rate: 16 respirations/minuteBlood Pressure: 98/72 left arm sitting automaticO2 Saturation: 100% room airVital Signs performed by: Milvia Fonseca MA, October 16, 2019 4:06 PMInitial Intake Information from: patientRoom #: 11Infectious Disease- Travel Have you or your sexual partner travelled outside of the country recently? NoSmoking, Tobacco or Smoke Exposure StatusSmoke Status: current every day smokerTobacco Use: YesAdv to Quit: YesPassive Smoke Exposure: YesMenstrual HistoryComments: MENOPAUSE Healthcare HistorySince your last office visit...Have you been admitted to the hospital? Yes - [facility] admission date reported today: 10/12/2019Have you been to an emergency room (ER) or urgent care clinic? No - [facility] EREmergency room (ER) or urgent care date reported today: 03/29/2019Have you seen another healthcare provider? No - com clinicHave you seen a dentist? NoIntake performed by: Milvia Fonseca MA, October 16, 2019 4:08 PMRate Your HealthIn general, would you say your health is? GoodPain AssessmentAre you currently having any pain which... You would like your provider to address? No Affects your activity level? NoDepression Screening - PHQ-2Over the last two weeks, have you... Had little interest or pleasure in doing things? Nearly every day Been feeling down, depressed, or hopeless? Nearly every day PHQ-2 Score: 6Anxiety Screening - SP-2Over the last two weeks, have you been... Feeling nervous, anxious, or on edge? Nearly every day Unable to stop or control worrying? Nearly every day SP-2 Score: 6PHQ-9 1. Over the last 2 weeks, patient reports the following frequency of symptoms: a. Little interest or pleasure in doing things - Nearly every day b. Feeling down, depressed, or hopeless -Nearly every day c. Trouble falling asleep, staying asleep, or sleeping too much -Nearly every day d. Feeling tired or having little energy -Nearly every day e. Poor appetite or overeating -Nearly every day f. Feeling bad about yourself, feeling that you are a failure, or feeling that you have let yourself or your family down -Nearly every day g. Trouble concentrating on things such as reading the newspaper or watching television -Nearly every day h. Moving or speaking so slowly that other people could have noticed. Or being so fidgety or restless that you have been moving around a lot more than usual -Nearly every day i. Thinking that you would be better off or that you want to hurt yourself in some way -Several days2. If you checked off any problems, how difficult have these problems made it for you to do your work, take care of things at home, or get along with other people? - Extremely DifficultToday's PHQ-9 Results Score: 25 Severity: Severe Diagnosis Recommendation: Major Depression Functional Impairment: Extremely DifficultSuicide Addendum Follow-up plan: Pt states she worked though this with counseling. Screening, Brief Intervention, & Referral to Treatment (SBIRT)Pre-Screening Questions How many times have you have 4 or more drinks in a day? 0How many times have you used an illegal drug or used a prescription medication for a non-medical reason? 0Performed by: Milvia Fonseca MA, October 16, 2019 4:10 PMPatient History Medical History:AnxietyDepressionAsthmaSeizuresLung NodulesMigrainesSurgical History: section [id number]gcpe Endoscopy "cancer removed from uterus"Family History:No known family historySocial/Personal History: Smoking Status: current every day smokerAdvised to Quit/Tobacco Education: YesChief Complaintfollow-up visitHistory of Present Illness (HPI)Telemedicine visit with patient's location at [facility] and provider's location at offsite office. Additional person(s)participating in the visit: n/a. Pt here today for follow up after HD for possible overdose. Her family called 911 after they found her passed out and she was taken to the hospital for possible overdose, she denies overusing her meds. She sees Lisha and Dr. Stafford for her mental health. She states that she feels like "my mental health sucked" prior to the hospitalization. She states that since she was discharged she feels a lot better. She saw Lisha today and GAD7 and PHQ9 and the SA was reviewed. The only medication change was that she was instructed to take her Effexor in the AM. She has an appt with Dr. Stafford in a few weeks.Pt states that Juanita prescribed prednisone for her perioral rash recently and it helped a little bit but its still itchy.HPI performed by: Ana Rosa GONZALEZ, October 16, 2019 4:15 PMTransitions of Care InboundProblem ReviewProblem List was reviewed and/or updated during this visit.Medication Reconciliation & ReviewMedication List was reviewed and/or updated during this visit, including review of any gbbk-tyr-whqkesv medications, herbal therapies, and/or supplements.Allergy ReviewAllergy List was reviewed and/or updated during this visit.Adult Preventive CareProvider Calculated and Reviewed all Clinical Protocols for patient today. Screening Tobacco Screening: Smoking Status: current every day smoker (10/16/2019) Advised to Quit: Yes (10/16/2019)Labs/Meds/Other Counseling-Nutrition and Physical Activity:BMI Interpretation: Healthy Weight (10/16/2019) Counseling: Done (10/16/2019) Physical Activity: Done (10/16/2019)Cancer Screening Pap Smear/HPV TestingReviewed: Previous Comments: had done yesterday at [facility] woman (04/04/2019)Today's Comments: 2019Review of Systems General: Denies chills, fever, headache, feeling ill, sweats, night sweats. Psychiatric: Complains of see HPI, depression, anxiety, feeling stressed. Denies suicidal ideation, homicidal ideation. Physical ExamGeneral Appearance: well nourished, well hydrated, no acute distressEyes, External: conjunctivae and lids normal, EOMIHearing: grossly intactRespiratory, Effort: no intercostal retractions or use of accessory musclesGait & Station: normalSkin, Inspection: generalized rash noted on face, perioralOrientation: oriented to time, place, and personMood & Affect: no depression, anxiety, or agitationJudgment & Insight: seems intactMemory: intact for recent and remote eventsCare Management Plan Transitions of CareInboundRate Your HealthIn general, would you say your health is? GoodAssessment & Plan Problems:Assessed:Generalized skin eruption due to drugs and medicaments taken internally & Adverse effect of unspecified drugs, medicaments and biological substances, initial encounter (ICD-693.0) (ICD10- L27.0) Assessment: Instructions: Your prescriptions have been sent to your preferred pharmacy electronically, please take them as prescribed and report any significant side effects.Bipolar Disorder (ICD-296.80) (UIO48-Y84.9) Assessment: Instructions: Please make sure to follow up with Lisha as scheduled and with Dr. Stafford as scheduled.Generalized skin eruption due to drugs and medicaments taken internally & Adverse effect of unspecified drugs, medicaments and biological substances, initial encounter (ICD-693.0) (ICD10- L27.0) Assessment: Triamcinilone.Bipolar Disorder (ICD-296.80) (MCG78-K39.9) Assessment: Has appt set up for follow up with Dr. Stafford and has already seen Lisha.Patient Instructions/Care Plan: Generalized skin eruption due to drugs and medicaments taken internally & Adverse effect of unspecified drugs- medicaments and biological substances- initial encounter: Your prescriptions have been sent to your preferred pharmacy electronically, please take them as prescribed and report any significant side effects.Bipolar Disorder: Please make sure to follow up with Lisha as scheduled and with Dr. Stafford as scheduled. Plan developed in collaboration with patient and/or familyMedications:SYNTHROID 88 MCG ORAL TABLETTRIAMCINOLONE ACETONIDE 0.1 % EXTERNAL OINTMENTKLONOPIN 1 MG ORAL TABLETATORVASTATIN CALCIUM 10 MG ORAL TABLETLEVOTHYROXINE SODIUM 100 MCG ORAL TABLETSAPHRIS 5 MG SUBLINGUAL TABLET SUBLINGUALMYRBETRIQ 25 MG ORAL TABLET EXTENDED RELEASE 24 HOURLINZESS 290 MCG ORAL CAPSULELAMICTAL 100 MG ORAL TABLETTOPAMAX 200 MG ORAL TABLETCELEBREX 200 MG ORAL CAPSULEHM VITAMIN D 1000 UNIT ORAL TABLETPROAIR HFA 108 (90 Base) MCG/ACT INHALATION AEROSOL SOLUTIONVENLAFAXINE HCL ER 150 MG ORAL CAPSULE EXTENDED RELEASE 24 HOURSUMATRIPTAN SUCCINATE 6 MG/0.5ML SUBCUTANEOUS SOLUTIONTRAZODONE HCL 150 MG ORAL TABLETMedication Changes:Refilled:TRIAMCINOLONE ACETONIDE 0.1 % EXTERNAL OINTMENT-Apply to area around mouth twice per day Qty: 60[Tube] Refills: 0 Method: ElectronicChanged:From: EXTERNAL PREDNISONE 10 MG ORAL TABLET Qty: [id number] Refills: 60[Tube] To: TRIAMCINOLONE ACETONIDE 0.1 % EXTERNAL OINTMENT-Apply to area around mouth twice per day Qty: 60[Tube] Refills: 0Allergies:PENICILLIN (Critical)* ASPRIN (Critical)DOXYCYCLINE (Moderate)MOTRIN (Mild)Orders:Office Visit - Established, Level 3 [CPT-19628VC] Follow-Up Return to clinic: for appt with Juanita in November Clinical Visit Summary Completed Name Value Range Interpretation Code Description Data Ariane rce(s) Supporting Document(s) ID Date Data Source [id number] 10/09/2019 10:41:00 AM GIUL[facility]ERNER ([facility], ) Name Value Range Interpretation Code Description Data Ariane rce(s) Supporting Document(s) Cobalamin (Vitamin B12) [Mass/volume] in Serum or Plasma 421 pg/ mL 247-911 Normal (applies to non-numeric results) [facility] ([facility]) VITAMIN B12 NORMAL RANGE NORMAL 247 - 911 PG/ML INDETERMINATE 211 - 246 PG/ML DEFICIENT LESS THAN 211 PG/ML Gastrin [Mass/volume] in Serum or Plasma 46 pg/mL 0-115 Normal (applies to non- numeric results) [facility] ([facility]) [employer] 2000 Immunochemiluminom etric assay (ICMA) . Values obtained with different assay methods or kits cannot be used interchangeably. Results cannot be interpreted as absolute evidence of the presence or absence of malignant disease. Intrinsic factor blocking Ab [Units/volume] in Serum 1.0 AU/mL 0.0-1.1 Normal (applies to non-numeric results) [facility] ([facility]) Performed at: - [facility] [id number] Project[address] Booth Operator: Analia Corcoran MD, Phone: [phone] Performed at: - [facility] [address] [id number] Projector Booth Operator: Becky Carter MD, Phone: [phone] Parietal cell Ab [Units/volume] in Serum 1.5 units 0.0-20. 0 Normal (applies to non-numeric results) [facility] ([facility]) Negative 0.0 - 20.0 Equivocal 20.1 - 24.9 Positive >24.9 . Parietal Cell Antibodies are found in 90% of patients with pernicious anemia and 30% of first degree relatives with pernicious anemia. ID Date Data Source [id number] 09/19/2019 08:50:00 AM EST [facility] Name Value Range Interpretation Code Description Data [facility]) Supporting Document(s) T4, FREE 1.27 ng/dL 0.76-1.46 N [facility] TSH 0.093 microintl units/mL 0.358-3.740 L [facility] ID Date Data Source [id number] 09/19/2019 08:45:00 AM EST [facility] ([facility], ) Name Value Range Interpretation Code Description Data Ariane rce(s) Supporting Document(s) Gastrin [Mass/volume] in Serum or Plasma 148 pg/mL 0-115 Above high normal [facility] ([facility] [place], ) Siemens Immulite 2000 Immunochemiluminom etric assay (ICMA) . Values obtained with different assay methods or kits cannot be used interchangeably. Results cannot be interpreted as absolute evidence of the presence or absence of malignant disease. Chromogranin A [Moles/volume] in Serum or Plasma 4 nmol/L 0-5 Normal (applies to non-numeric results) MEDENT ([facility] [place], ) Chromogranin A performed by [employer] jonathan methodology. . Values obtained with different assay methods or kits cannot be used interchangeably. Performed at: [address] [id number] Projector Booth Operator: Analia Corcoran MD, Phone: [phone] ID Date Data Source [id number] 09/16/2019 10:01:46 AM [facility] Measurements & CalculationsHeight: 66 inches (5 ft. 6 in.) 167.64 cm Weight: 132 pounds 60 kg Body Mass Index (BMI): 21.38BMI Interpretation: Healthy WeightBody Surface Area (BSA): 1.68Weight Management Education Done (Nutrition/Physical Activity)Vital SignsTemperature: 97.5F 36.39C oral Pulse Rate: 106 beats/minuteRespiratory Rate: 16 respirations/minuteBlood Pressure: 105/83 right arm sitting automaticO2 Saturation: 97% room airVital Signs performed by: Milvia Fonseca MA, September 16, 2019 10:02 AMInitial Intake Information from: patientRoom #: 12Infectious Disease- Travel Have you or your sexual partner travelled outside of the country recently? NoSmoking, Tobacco or Smoke Exposure StatusSmoke Status: current every day smokerTobacco Use: YesAdv to Quit: YesPassive Smoke Exposure: YesMenstrual HistoryComments: menopause Healthcare HistorySince your last office visit...Have you been admitted to the hospital? Yes - [facility] Hospital admission date reported today: 09/13/2019Have you been to an emergency room (ER) or urgent care clinic? No - [facility] EREmergency room (ER) or urgent care date reported today: 03/29/2019Have you [facility] healthcare [facility]? [facility] clinicHave you seen a dentist? NoIntake performed by: Milvia Fonseca MA, September 16, 2019 10:05 AMRate Your HealthIn general, would you say your health is? GoodPain AssessmentAre you currently having any pain which... You would like your provider to address? No Affects your activity level? NoDepression Screening - PHQ-2Over the last two weeks, have you... Had little interest or pleasure in doing things? Not at all Been feeling down, depressed, or hopeless? Not at all PHQ-2 Score: 0Anxiety Screening - SP-2Over the last two weeks, have you been... Feeling nervous, anxious, or on edge? Nearly every day Unable to stop or control worrying? Nearly every day SP-2 Score: 6Gen eralized Anxiety Disorder 7-Item Screening (SP-7)Answer Guide:0 = Not at all1 = Several days2 = Over half the days3 = Nearly every dayOver the last 2 weeks, how often have you been bothered by the following problems?Feeling nervous, anxious, or on edge: 3Not being able to stop or control worryinWorrying too much about different things: 3Trouble relaxinBeing so restless that it's hard to sit still: 3Becoming easily annoyed or irritable: 3Feeling afraid as if something awful might happen: 3Answer Guide:0 = Not difficult at all1 = Somewhat difficult2 = Very difficult3 = Extremely difficultHow difficult have these made it for you to do your work, take care of things at home, or get along with other people? 3GAD-7 Screening Results SP-2 Score: 6GAD-7 Score: 21Functional Impairment: Extremely difficultRecommendation: Severe anxietyScreening, Brief Intervention, & Referral to Treatment (SBIRT)Pre-Screening Questions How many times have you have 4 or more drinks in a day? 0How many times have you used an illegal drug or used a prescription medication for a non-medical reason? 0Performed by: Milvia Fonseca MA, September 16, 2019 10:05 AMPatient History Medical History:AnxietyDepressionAsthmaSeizuresLung NodulesMigrainesSurgical History: section [id number] Endoscopy "cancer removed from uterus"Family History:No known family historySocial/Personal His tory: Smoking Status: current every day smokerAdvised to Quit/Tobacco Education: YesChief ComplaintIMU- Mental health History of Present Illness (HPI)49 y/o female here for [facility] Hospital D/C. Pt states she stil has some anxiety, but overall things are a lot better than it was. Pt states the ER did not give her anything for the rash. Pt states she needs medication for her symptoms. Transitions of Care InboundProblem ReviewProblem List was reviewed and/or updated during this visit.Medication Reconciliation & ReviewMedication List was reviewed and/or updated during this visit, including review of any jqfq-fdg-pzggewl medications, herbal therapies, and/or supplements.Allergy ReviewAllergy List was reviewed and/or updated during this visit.Adult Preventive CareProvider Calculated and Reviewed all Clinical Protocols for patient today. Screening Tobacco Screening: Smoking Status: current every day smoker (09/16/2019) Advised to Quit: Yes (09/16/2019)Labs/Meds/Other Counseling-Nutrition and Physical Activity:BMI Interpretation: Healthy Weight (09/16/2019) Counseling: Done (09/16/2019) Physical Activity: Done (09/16/2019)Review of Systems General: Complains of dizziness. Denies fever. fatigue gradually impovingCardiovascular: Denies chest pain. Respiratory: Complains of excessive sputum. Denies difficulty breathing. Gastrointestinal: Denies nausea, vomiting, diarrhea. Psychiatric: Complains of depression, anxiety. Denies suicidal ideation, homicidal ideation. Physical ExamGeneral Appearance: well nourished, well hydrated, no acute distressRespiratory, Auscultation: clear to auscultation bilaterally; no rales, rhonchi, or wheezesRespiratory, Effort: no intercostal retractions or use of accessory musclesCardiovascular, Auscultation: S1, S2 audible; no murmur, rub, or gallop; RRRPeripheral Circulation: no clubbing, cyanosis, edema, or varicositiesGait & Station: normalSkin, Inspection: generalized rash noted on face, neck, and chestOrientation: oriented to time, place, and personMood & Affect: no depression, anxiety, or agitationJudgment & Insight: intactCare Management Plan Transitions of CareInboundRate Your HealthIn general, would you say your health is? GoodAssessment & Plan Problems:Assessed:Generalized skin eruption due to drugs and medicaments taken internally & Adverse effect of unspecified drugs, medicaments and biological substances, initial encounter (ICD-693.0) (ICD10- L27.0) Assessment: Instructions: Will send for oral prednisone (steroid) once daily for 5 days, take with food. Reviewed side effects of medication and how to take the medication appropriately.DEPRESSION (ICD-311) (BQZ15-Z99.9) Assessment: Instructions: Follow-up as scheduled 09/18/19 with behavioral health.Anxiety (ICD-300.00) (EAU54-L12.9) Assessment: Instructions: Follow- up as scheduled 09/18/19 with behavioral health.Patient Instructions/Care Plan: Generalized skin eruption due to drugs and medicaments taken internally & Adverse effect of unspecified drugs- medicaments and biological substances- initial encounter: Will send for oral prednisone (steroid) once daily for 5 days, take with food. Reviewed side effects of medication and how to take the medication appropriately.DEPRESSION: Follow-up as scheduled 09/18/19 with behavioral health.Anxiety: Follow-up as scheduled 09/18/19 with behavioral health. Plan developed in collaboration with patient and/or familyMedications:PREDNISONE 10 MG ORAL TABLETKLONOPIN 1 MG ORAL TABLETATORVASTATIN CALCIUM 10 MG ORAL TABLETLEVOTHYROXINE SODIUM 100 MCG ORAL TABLETSAPHRIS 5 MG SUBLINGUAL TABLET SUBLINGUALMYRBETRIQ 25 MG ORAL TABLET EXTENDED RELEASE 24 HOURLINZESS 290 MCG ORAL CAPSULELAMICTAL 100 MG ORAL TABLETTOPAMAX 200 MG ORAL TABLETCELEBREX 200 MG ORAL CAPSULEHM VITAMIN D 1000 UNIT ORAL TABLETPROAIR HFA 108 (90 Base) MCG/ACT INHALATION AEROSOL SOLUTIONVENLAFAXINE HCL ER 150 MG ORAL CAPSULE EXTENDED RELEASE 24 HOURSUMATRIPTAN SUCCINATE 6 MG/0.5ML SUBCUTANEOUS SOLUTIONTRAZODONE HCL 150 MG ORAL TABLETMedication Changes:New Prescription:PREDNISONE 10 MG ORAL TABLET-Take 3 tablets once daily for 5 days Qty: 15[Tablet] Refills: 0 Method: ElectronicRemoved:DOXYCYCLINE HYCLATE 100 MG ORAL CAPSULE-Take one tab po BID for 5 daysAllergies:PENICILLIN (Critical)* ASPRIN (Critical)DOXYCYCLINE (Moderate)MOTRIN (Mild)Orders:Adult - Ofc Vst, EST, Level III [CPT-04057] Follow-Up Return to clinic: in 3 months for follow upMedications:PREDNISONE 10 MG ORAL TABLET (PREDNISONE) Take 3 tablets once daily for 5 days #15[Tablet] x 0 Route:ORAL Entered and Authorized by: Juanita SCHULZ Electronic ally signed by: Juanita SCHULZ on 09/16/2019 Method used: Electronically to [facility]* (retail) [address] [place] [address] Note to Pharmacy: Route: ORAL; RxID: [id number] signed by Juanita SCHULZ on 09/19/2019 at 11:44 AM Name Value Range Interpretation Code Description Data Ariane rce(s) Supporting Document(s) Procedure Social History Code Duration Value Status Description Data Source(s ) Smoking 10/11/2020 12:00:00 AM EST Patient is a former smoker completed Patient is a former smoker [facility]PHONSO ([facility] [place], ) Smoking 11/10/2019 12:00:00 AM EST Unknown if ever smoked comp leted Unknown if ever smoked [facility] ([facility]) Smoking 10/29/2019 12:00:00 AM EST Unknown if ever smoked comp leted Unknown if ever smoked [facility] ([facility]) Smoking 10/17/2019 12:00:00 AM EST Unknown if ever smoked comp leted Unknown if ever smoked [facility] ([facility]) Smoking 10/16/2019 12:00:00 AM EST Unknown if ever smoked comp leted Unknown if ever smoked [facility] ([facility]) Smoking 09/23/2019 12:00:00 AM EST Unknown if ever smoked comp leted Unknown if ever smoked [facility] ([facility]) 09/15/2019 12:00:00 AM EST Current Cigarette Smoker 1 Pack Daily completed Current Cigarette Smoker 1 Pack Daily MEDENT ([facility]) Vital Signs ID Date Data Source UNK Name Value Range Interpretation Code Description Data Source(s) Body weight 2435.2 [oz_av] 2435.2 [oz_av] ATHEN A ([facility]) Body mass index (BMI) [Ratio] 27 kg/m2 27 kg/ m2 SAVAGE ([facility]) Body height 63 [in_i] 63 [in_i] SAVAGE ([facility]) Body surface area Derived from formula 1.70 m2 1.70 m2 [facility]) Body weight 67.133 kg 67.133 kg [facility] ([facility] [place] body weight 115 [lb_av] 115 [lb_av] MEDEN T ([facility]) Body mass index (BMI) [Ratio] 26.2 kg/m2 26.2 k g/m2 [facility] Body weight 148.00 [lb_av] 148.00 [lb_av] MEDEN T ([facility]) Body height 63 [in_i] 63 [in_i] [facility] 5'3" Oxygen saturation in Arterial blood by Pulse oximetry 98 % 98 % [facility] ([facility]) Room Air Heart rate 82 /min 82 /min [facility]) Diastolic blood pressure 76 mm[Hg] 76 mm[Hg] [facility] Systolic blood pressure 130 mm[Hg] 130 mm[Hg] M EDENT ([facility]) Body surface area Derived from formula 1.68 m2 1.68 m2 [facility] Body weight 65.318 kg 65.318 kg [facility] ([facility]) [place] body weight 115 [lb_av] 115 [lb_av] MEDEN T ([facility]) Body mass index (BMI) [Ratio] 25.5 kg/m2 25.5 k g/m2 [facility] ([facility]) Body weight 144.00 [lb_av] 144.00 [lb_av] MEDEN T ([facility]) Body height 63 [in_i] 63 [in_i] [facility] ([facility]) 5'3" Oxygen saturation in Arterial blood by Pulse oximetry 98 % 98 % [facility] ([facility]) Room Air Heart rate 109 /min 109 /min [facility] ([facility]) Diastolic blood pressure 70 mm[Hg] 70 mm[Hg] [facility] ([facility]) Systolic blood pressure 120 mm[Hg] 120 mm[Hg] [facility] ([facility]) Body surface area Derived from formula 1.69 m2 1.69 m2 [facility] ([facility]) Body weight 66.226 kg 66.226 kg [facility] ([facility]) [place] body weight 115 [lb_av] 115 [lb_av] MEDEN T ([facility]) Body mass index (BMI) [Ratio] 25.9 kg/m2 25.9 k g/m2 [facility] ([facility]) Body weight 146.00 [lb_av] 146.00 [lb_av] MEDEN T ([facility]) Body height 63 [in_i] 63 [in_i] [facility] ([facility]) 5'3" Oxygen saturation in Arterial blood by Pulse oximetry 98 % 98 % [facility] ([facility]) Room Air Heart rate 100 /min 100 /min [facility] ([facility]) Diastolic blood pressure 80 mm[Hg] 80 mm[Hg] [facility] ([facility]) Systolic blood pressure 140 mm[Hg] 140 mm[Hg] [facility] Body weight 2370 [oz_av] 2370 [oz_av] S[facility]AGE ([facility]) Systolic blood pressure 117 mm[Hg] 117 mm[Hg] A THENA ([facility]) Body mass index (BMI) [Ratio] 26.2 kg/m2 26.2 k g/m2 S[facility] ([facility]) Body weight 2370 [oz_av] 2370 [oz_av] [facility] ([facility]) Systolic blood pressure 117 mm[Hg] 117 mm[Hg] A [facility] ([facility]) Body mass index (BMI) [Ratio] 26.2 kg/m2 26.2 k g/m2 S[facility]AGE ([facility]) Body height 63 [in_i] 63 [in_i] [facility] ([facility]) Diastolic blood pressure 74 mm[Hg] 74 mm[Hg] S[facility] ([facility]) Body height 63 [in_i] 63 [in_i] [facility] ([facility]) Diastolic blood pressure 74 mm[Hg] 74 mm[Hg] S[facility] ([facility]) Body weight 2370 [oz_av] 2370 [oz_av] S[facility]AGE ([facility]) Systolic blood pressure 117 mm[Hg] 117 mm[Hg] A [facility] ([facility]) Body mass index (BMI) [Ratio] 26.2 kg/m2 26.2 k g/m2 S[facility]AGE ([facility]) Body height 63 [in_i] 63 [in_i] S[facility]AGE ([facility]) Diastolic blood pressure 74 mm[Hg] 74 mm[Hg] S[facility]AGE ([facility]) Body weight 2370 [oz_av] 2370 [oz_av] [facility] ([facility]) Systolic blood pressure 117 mm[Hg] 117 mm[Hg] A THEN ([facility]) Body mass index (BMI) [Ratio] 26.2 kg/m2 26.2 k g/m2 S[facility]AGE ([facility]) Body height 63 [in_i] 63 [in_i] [facility] ([facility]) Diastolic blood pressure 74 mm[Hg] 74 mm[Hg] [facility] ([facility]) Body surface area Derived from formula 1.70 m2 1.70 m2 ALPHONSO ([facility]) Body weight 67.133 kg 67.133 kg ALPHONSO ([facility], ) [place] body weight 115 [lb_av] 115 [lb_av] [facility] T ([facility]) Body mass index (BMI) [Ratio] 26.2 kg/m2 26.2 k g/m2 [facility] ([facility]) Body weight 148.00 [lb_av] 148.00 [lb_av] [facility] [place], ) Body height 63 [in_i] 63 [in_i] [facility] ([facility], ) 5'3" Diastolic blood pressure 78 mm[Hg] 78 mm[Hg] [facility] ([facility]) Systolic blood pressure 110 mm[Hg] 110 mm[Hg] M HARMONY ([facility]) Body weight 2257 [oz_av] 2257 [oz_av] SAVAGE ([facility]) Systolic blood pressure 114 mm[Hg] 114 mm[Hg] A [facility] ([facility]) Body mass index (BMI) [Ratio] 25 kg/m2 25 kg/ m2 S[facility]AGE ([facility]) Body height 63 [in_i] 63 [in_i] [facility] ([facility]) Diastolic blood pressure 80 mm[Hg] 80 mm[Hg] [facility] ([facility]) Body weight 2257 [oz_av] 2257 [oz_av] [facility] ([facility]) Systolic blood pressure 114 mm[Hg] 114 mm[Hg] A [facility] ([facility]) Body mass index (BMI) [Ratio] 25 kg/m2 25 kg/ m2 S[facility] ([facility]) Body height 63 [in_i] 63 [in_i] [facility] ([facility]) Diastolic blood pressure 80 mm[Hg] 80 mm[Hg] [facility] ([facility]) Body weight 2257 [oz_av] 2257 [oz_av] [facility] ([facility]) Systolic blood pressure 114 mm[Hg] 114 mm[Hg] A [facility] ([facility]) Body mass index (BMI) [Ratio] 25 kg/m2 25 kg/ m2 [facility] ([facility]) Body height 63 [in_i] 63 [in_i] [facility] ([facility]) Diastolic blood pressure 80 mm[Hg] 80 mm[Hg] [facility] ([facility]) Body weight 2257 [oz_av] 2257 [oz_av] [facility] ([facility]) Systolic blood pressure 114 mm[Hg] 114 mm[Hg] A [facility] ([facility]) Body mass index (BMI) [Ratio] 25 kg/m2 25 kg/ m2 [facility] ([facility]) Body height 63 [in_i] 63 [in_i] [facility] ([facility]) Diastolic blood pressure 80 mm[Hg] 80 mm[Hg] S[facility] ([facility]) Body weight 2257 [oz_av] 2257 [oz_av] [facility] ([facility]) Systolic blood pressure 114 mm[Hg] 114 mm[Hg] A [facility] ([facility]) Body mass index (BMI) [Ratio] 25 kg/m2 25 kg/ m2 S[facility] ([facility]) Body height 63 [in_i] 63 [in_i] [facility] ([facility]) Diastolic blood pressure 80 mm[Hg] 80 mm[Hg] [facility] ([facility]) Body weight 2257 [oz_av] 2257 [oz_av] [facility] ([facility]) Systolic blood pressure 114 mm[Hg] 114 mm[Hg] A [facility] ([facility]) Body mass index (BMI) [Ratio] 25 kg/m2 25 kg/ m2 S[facility] ([facility]) Body height 63 [in_i] 63 [in_i] [facility] ([facility]) Diastolic blood pressure 80 mm[Hg] 80 mm[Hg] [facility] ([facility]) Body weight 2257 [oz_av] 2257 [oz_av] [facility] ([facility]) Systolic blood pressure 114 mm[Hg] 114 mm[Hg] A [facility] ([facility]) Body mass index (BMI) [Ratio] 25 kg/m2 25 kg/ m2 S[facility] ([facility]) Body height 63 [in_i] 63 [in_i] [facility] ([facility]) Diastolic blood pressure 80 mm[Hg] 80 mm[Hg] S[facility] ([facility]) Body weight 2257 [oz_av] 2257 [oz_av] [facility] ([facility]) Systolic blood pressure 114 mm[Hg] 114 mm[Hg] A THENA ([facility]) Body mass index (BMI) [Ratio] 25 kg/m2 25 kg/ m2 S[facility] ([facility]) Body height 63 [in_i] 63 [in_i] [facility] ([facility]) Diastolic blood pressure 80 mm[Hg] 80 mm[Hg] S[facility] ([facility]) Body weight 2257 [oz_av] 2257 [oz_av] [facility] ([facility]) Systolic blood pressure 114 mm[Hg] 114 mm[Hg] A THENA ([facility]) Body mass index (BMI) [Ratio] 25 kg/m2 25 kg/ m2 [facility] ([facility]) Body height 63 [in_i] 63 [in_i] [facility] ([facility]) Diastolic blood pressure 80 mm[Hg] 80 mm[Hg] S[facility]AGE ([facility]) Body weight 62.597 kg 62.597 kg ALPHONSO ([facility] ) [place] body weight 115 [lb_av] 115 [lb_av] MEDEN T ([facility] [place], ) Body mass index (BMI) [Ratio] 24.4 kg/m2 24.4 k g/m2 ALPHONSO ([facility] [place], ) Body weight 138.00 [lb_av] 138.00 [lb_av] MEDEN T ([facility] [place], ) Body height 63 [in_i] 63 [in_i] ALPHONSO ([facility], ) 5'3" Oxygen saturation in Arterial blood by Pulse oximetry 98 % 98 % [facility] [place], ) Room Air Heart rate 78 /min 78 /min ALPHONSO ([facility], ) Diastolic blood pressure 90 mm[Hg] 90 mm[Hg] ALPHONSO ([facility] [place], ) Systolic blood pressure 130 mm[Hg] 130 mm[Hg] Bean ANTUNEZ [facility] Body weight 64.411 kg 64.411 kg [facility] ([facility]) [place] body weight 115 [lb_av] 115 [lb_av] [facility] Body mass index (BMI) [Ratio] 25.2 kg/m2 25.2 k g/m2 [facility] ([facility]) Body weight 142.00 [lb_av] 142.00 [lb_av] [facility] Body height 63 [in_i] 63 [in_i] [facility] ([facility]) 5'3" Oxygen saturation in Arterial blood by Pulse oximetry 99 % 99 % [facility] ([facility]) Room Air Heart rate 70 /min 70 /min [facility] ([facility]) Diastolic blood pressure 70 mm[Hg] 70 mm[Hg] [facility] ([facility]) Systolic blood pressure 110 mm[Hg] 110 mm[Hg] [facility] Body weight 2104 [oz_av] 2104 [oz_av] SAVAGE ([facility]) Body height 63 [in_i] 63 [in_i] SAVAGE ([facility]) Body weight 2104 [oz_av] 2104 [oz_av] S[facility] ([facility]) Body height 63 [in_i] 63 [in_i] [facility] ([facility]) Body weight 2104 [oz_av] 2104 [oz_av] [facility] ([facility]) Body height 63 [in_i] 63 [in_i] [facility] ([facility]) Body weight 2104 [oz_av] 2104 [oz_av] [facility] ([facility]) Body height 63 [in_i] 63 [in_i] [facility] ([facility]) Body weight 2104 [oz_av] 2104 [oz_av] [facility] ([facility]) Body height 63 [in_i] 63 [in_i] [facility] ([facility]) Body weight 2104 [oz_av] 2104 [oz_av] [facility] ([facility]) Body height 63 [in_i] 63 [in_i] [facility] ([facility]) Body weight 2104 [oz_av] 2104 [oz_av] [facility] ([facility]) Body height 63 [in_i] 63 [in_i] [facility] ([facility]) Body weight 2104 [oz_av] 2104 [oz_av] [facility] ([facility]) Body height 63 [in_i] 63 [in_i] [facility] ([facility]) Body weight 2104 [oz_av] 2104 [oz_av] [facility] ([facility]) Body height 63 [in_i] 63 [in_i] [facility] ([facility]) Body weight 2104 [oz_av] 2104 [oz_av] [facility] ([facility]) Body height 63 [in_i] 63 [in_i] [facility] ([facility]) Body weight 2104 [oz_av] 2104 [oz_av] [facility] ([facility]) Body height 63 [in_i] 63 [in_i] [facility] ([facility]) Body mass index (BMI) [Ratio] 23.2 kg/m2 23.2 k g/m2 ALPHONSO ([facility], ) Body weight 131.00 [lb_av] 131.00 [lb_av] MEDEN T ([facility], ) Body height 63 [in_i] 63 [in_i] ALPHONSO ([facility], ) 5'3" Diastolic blood pressure 64 mm[Hg] 64 mm[Hg] MEDENT ([facility], ) Systolic blood pressure 104 mm[Hg] 104 mm[Hg] M HRAMONY ([facility], ) Body weight 59.422 kg 59.422 kg MEDJACQUELINE ([facility] ) [place] body weight 115 [lb_av] 115 [lb_av] MEDEN T ([facility] [facility], ) Body weight 1960 [oz_av] 1960 [oz_av] SAVAGE ([facility]) Body height 63 [in_i] 63 [in_i] SAVAGE ([facility]) Body weight 1960 [oz_av] 1960 [oz_av] SAVAGE ([facility]) Body height 63 [in_i] 63 [in_i] SAVAGE ([facility]) Body weight 1960 [oz_av] 1960 [oz_av] SAVAGE ([facility]) Body height 63 [in_i] 63 [in_i] SAVAGE ([facility]) Body weight 1960 [oz_av] 1960 [oz_av] SAVAGE ([facility]) Body height 63 [in_i] 63 [in_i] SAVAGE ([facility]) Body weight 1960 [oz_av] 1960 [oz_av] SAVAGE ([facility]) Body height 63 [in_i] 63 [in_i] SAVAGE ([facility]) Body weight 1960 [oz_av] 1960 [oz_av] SAVAGE ([facility]) Body height 63 [in_i] 63 [in_i] SAVAGE ([facility]) Body weight 1960 [oz_av] 1960 [oz_av] SAVAGE ([facility]) Body height 63 [in_i] 63 [in_i] SAVAGE ([facility]) Body weight 1960 [oz_av] 1960 [oz_av] SAVAGE ([facility]) Body height 63 [in_i] 63 [in_i] SAVAGE ([facility]) Body weight 1960 [oz_av] 1960 [oz_av] SAVAGE ([facility]) Body height 63 [in_i] 63 [in_i] SAVAGE ([facility]) Body weight 1960 [oz_av] 1960 [oz_av] SAVAGE ([facility]) Body height 63 [in_i] 63 [in_i] SAVAGE ([facility]) Body weight 1960 [oz_av] 1960 [oz_av] SAVAGE ([facility]) Body height 63 [in_i] 63 [in_i] SAVAGE ([facility]) Body weight 53.978 kg 53.978 kg ALPHONSO ([facility], ) Body mass index (BMI) [Ratio] 21.1 kg/m2 21.1 k g/m2 MEDJACQUELINE ([facility] [place], ) Body weight 119.00 [lb_av] 119.00 [lb_av] NESSA Gamez ([facility]) Body height 63 [in_i] 63 [in_i] ALPHONSO ([facility], ) 5'3" Diastolic blood pressure 70 mm[Hg] 70 mm[Hg] ALPHONSO ([facility]) Systolic blood pressure 120 mm[Hg] 120 mm[Hg] Bean ANTUNEZ ([facility] [place], ) Body weight 1920 [oz_av] 1920 [oz_av] SAVAGE ([facility]) Systolic blood pressure 99 mm[Hg] 99 mm[Hg] A [facility] ([facility]) Body height 63 [in_i] 63 [in_i] SAVAGE ([facility]) Diastolic blood pressure 68 mm[Hg] 68 mm[Hg] SAVAGE ([facility]) Body weight 1920 [oz_av] 1920 [oz_av] SAVAGE ([facility]) Systolic blood pressure 99 mm[Hg] 99 mm[Hg] A [facility] ([facility]) Body height 63 [in_i] 63 [in_i] SAVAGE ([facility]) Diastolic blood pressure 68 mm[Hg] 68 mm[Hg] SAVAGE ([facility]) Body weight 1920 [oz_av] 1920 [oz_av] SAVAGE ([facility]) Systolic blood pressure 99 mm[Hg] 99 mm[Hg] A [facility] ([facility]) Body height 63 [in_i] 63 [in_i] SAVAGE ([facility]) Diastolic blood pressure 68 mm[Hg] 68 mm[Hg] SAVAGE ([facility]) Body weight 1920 [oz_av] 1920 [oz_av] SAVAGE ([facility]) Systolic blood pressure 99 mm[Hg] 99 mm[Hg] A [facility] ([facility]) Body height 63 [in_i] 63 [in_i] SAVAGE ([facility]) Diastolic blood pressure 68 mm[Hg] 68 mm[Hg] SAVAGE ([facility]) Body weight 1920 [oz_av] 1920 [oz_av] SAVAGE ([facility]) Systolic blood pressure 99 mm[Hg] 99 mm[Hg] A [facility] ([facility]) Body height 63 [in_i] 63 [in_i] SAVAGE ([facility]) Diastolic blood pressure 68 mm[Hg] 68 mm[Hg] SAVAGE ([facility]) Body weight 1920 [oz_av] 1920 [oz_av] SAVAGE ([facility]) Systolic blood pressure 99 mm[Hg] 99 mm[Hg] A [facility] ([facility]) Body height 63 [in_i] 63 [in_i] SAVAGE ([facility]) Diastolic blood pressure 68 mm[Hg] 68 mm[Hg] SAVAGE ([facility]) Body weight 1920 [oz_av] 1920 [oz_av] SAVAGE ([facility]) Systolic blood pressure 99 mm[Hg] 99 mm[Hg] A [facility] ([facility]) Body height 63 [in_i] 63 [in_i] SAVAGE ([facility]) Diastolic blood pressure 68 mm[Hg] 68 mm[Hg] SAVAGE ([facility]) Body weight 1920 [oz_av] 1920 [oz_av] SAVAGE ([facility]) Systolic blood pressure 99 mm[Hg] 99 mm[Hg] A THENA ([facility]) Body height 63 [in_i] 63 [in_i] SAVAGE ([facility]) Diastolic blood pressure 68 mm[Hg] 68 mm[Hg] SAVAGE ([facility]) Body weight 1920 [oz_av] 1920 [oz_av] SAVAGE ([facility]) Systolic blood pressure 99 mm[Hg] 99 mm[Hg] A [facility] ([facility]) Body height 63 [in_i] 63 [in_i] SAVAGE ([facility]) Diastolic blood pressure 68 mm[Hg] 68 mm[Hg] SAVAGE ([facility]) Body weight 1920 [oz_av] 1920 [oz_av] SAVAGE ([facility]) Systolic blood pressure 99 mm[Hg] 99 mm[Hg] A THENA ([facility]) Body height 63 [in_i] 63 [in_i] SAVAGE ([facility]) Diastolic blood pressure 68 mm[Hg] 68 mm[Hg] SAVAGE ([facility]) Body weight 1920 [oz_av] 1920 [oz_av] SAVAGE ([facility]) Systolic blood pressure 99 mm[Hg] 99 mm[Hg] A THENA ([facility]) Body height 63 [in_i] 63 [in_i] SAVAGE ([facility]) Diastolic blood pressure 68 mm[Hg] 68 mm[Hg] SAVAGE ([facility]) Body weight 1926.08 [oz_av] 1926.08 [oz_av] ATH ELIZABETH ([facility]) Body height 63 [in_i] 63 [in_i] SAVAGE ([facility]) Body weight 1926.08 [oz_av] 1926.08 [oz_av] ATH ELIZABETH ([facility]) Body height 63 [in_i] 63 [in_i] SAVAGE ([facility]) Body weight 1926.08 [oz_av] 1926.08 [oz_av] ATH ELIZABETH ([facility]) Body height 63 [in_i] 63 [in_i] SAVAGE ([facility]) Body weight 1926.08 [oz_av] 1926.08 [oz_av] ATH ELIZABETH ([facility]) Body height 63 [in_i] 63 [in_i] SAVAGE ([facility]) Body weight 1926.08 [oz_av] 1926.08 [oz_av] ATH ELIZABETH ([facility]) Body height 63 [in_i] 63 [in_i] SAVAGE ([facility]) Body weight 1926.08 [oz_av] 1926.08 [oz_av] ATH ELIZABETH ([facility]) Body height 63 [in_i] 63 [in_i] SAVAGE ([facility]) Body weight 1926.08 [oz_av] 1926.08 [oz_av] ATH ELIZABETH ([facility]) Body height 63 [in_i] 63 [in_i] SAVAGE ([facility]) Body weight 1926.08 [oz_av] 1926.08 [oz_av] ATH ELIZABETH ([facility]) Body height 63 [in_i] 63 [in_i] SAVAGE ([facility]) Body weight 1926.08 [oz_av] 1926.08 [oz_av] ATH ELIZABETH ([facility]) Body height 63 [in_i] 63 [in_i] SAVAGE ([facility]) Body weight 1926.08 [oz_av] 1926.08 [oz_av] ATH ELIZABETH ([facility]) Body height 63 [in_i] 63 [in_i] SAVAGE ([facility]) Body weight 1926.08 [oz_av] 1926.08 [oz_av] ATH ELIZABETH ([facility]) Body height 63 [in_i] 63 [in_i] SAVAGE ([facility]) Body weight 1968 [oz_av] 1968 [oz_av] SAVAGE ([facility]) Systolic blood pressure 134 mm[Hg] 134 mm[Hg] A [facility] ([facility]) Body height 63 [in_i] 63 [in_i] SAVAGE ([facility]) Diastolic blood pressure 83 mm[Hg] 83 mm[Hg] SAVAGE ([facility]) Body weight 1968 [oz_av] 1968 [oz_av] SAVAGE ([facility]) Systolic blood pressure 134 mm[Hg] 134 mm[Hg] A [facility] ([facility]) Body height 63 [in_i] 63 [in_i] SAVAGE ([facility]) Diastolic blood pressure 83 mm[Hg] 83 mm[Hg] SAVAGE ([facility]) Body weight 1968 [oz_av] 1968 [oz_av] SAVAGE ([facility]) Systolic blood pressure 134 mm[Hg] 134 mm[Hg] A [facility] ([facility]) Body height 63 [in_i] 63 [in_i] SAVAGE ([facility]) Diastolic blood pressure 83 mm[Hg] 83 mm[Hg] SAVAGE ([facility]) Body weight 1968 [oz_av] 1968 [oz_av] SAVAGE ([facility]) Systolic blood pressure 134 mm[Hg] 134 mm[Hg] A [facility] ([facility]) Body height 63 [in_i] 63 [in_i] SAVAGE ([facility]) Diastolic blood pressure 83 mm[Hg] 83 mm[Hg] SAVAGE ([facility]) Body weight 1968 [oz_av] 1968 [oz_av] SAVAGE ([facility]) Systolic blood pressure 134 mm[Hg] 134 mm[Hg] A [facility] ([facility]) Body height 63 [in_i] 63 [in_i] SAVAGE ([facility]) Diastolic blood pressure 83 mm[Hg] 83 mm[Hg] SAVAGE ([facility]) Body weight 1967 [oz_av] 1967 [oz_av] SAVAGE ([facility]) Systolic blood pressure 134 mm[Hg] 134 mm[Hg] A THENA ([facility]) Body height 63 [in_i] 63 [in_i] SAVAGE ([facility]) Diastolic blood pressure 83 mm[Hg] 83 mm[Hg] SAVAGE ([facility]) Body height 63 [in_i] 63 [in_i] SAVAGE ([facility]) Diastolic blood pressure 83 mm[Hg] 83 mm[Hg] SAVAGE ([facility]) Body weight 1968 [oz_av] 1968 [oz_av] SAVAGE ([facility]) Systolic blood pressure 134 mm[Hg] 134 mm[Hg] A THENA ([facility]) Body height 63 [in_i] 63 [in_i] SAVAGE ([facility]) Diastolic blood pressure 83 mm[Hg] 83 mm[Hg] SAVAGE ([facility]) Body weight 1968 [oz_av] 1968 [oz_av] SAVAGE ([facility]) Systolic blood pressure 134 mm[Hg] 134 mm[Hg] A THENA ([facility]) Body height 63 [in_i] 63 [in_i] SAVAGE ([facility]) Diastolic blood pressure 83 mm[Hg] 83 mm[Hg] SAVAGE ([facility]) Body weight 1968 [oz_av] 1968 [oz_av] SAVAGE ([facility]) Systolic blood pressure 134 mm[Hg] 134 mm[Hg] A THENA ([facility]) Body height 63 [in_i] 63 [in_i] SAVAGE ([facility]) Diastolic blood pressure 83 mm[Hg] 83 mm[Hg] SAVAGE ([facility]) Body weight 1968 [oz_av] 1968 [oz_av] SAVAGE ([facility]) Systolic blood pressure 134 mm[Hg] 134 mm[Hg] A THENA ([facility]) Body weight 1968 [oz_av] 1968 [oz_av] SAVAGE ([facility]) Systolic blood pressure 134 mm[Hg] 134 mm[Hg] A THENA ([facility]) Body height 63 [in_i] 63 [in_i] SAVAGE ([facility]) Diastolic blood pressure 83 mm[Hg] 83 mm[Hg] SAVAGE ([facility]) Body weight 1986.08 [oz_av] 1986.08 [oz_av] ATH ELIZABETH ([facility]) Body height 63 [in_i] 63 [in_i] SAVAGE ([facility]) Body weight 1986.08 [oz_av] 1986.08 [oz_av] ATH ELIZABETH ([facility]) Body height 63 [in_i] 63 [in_i] SAVAGE ([facility]) Body weight 1986.08 [oz_av] 1986.08 [oz_av] ATH ELIZABETH ([facility]) Body height 63 [in_i] 63 [in_i] SAVAGE ([facility]) Body weight 1986.08 [oz_av] 1986.08 [oz_av] ATH ELIZABETH ([facility]) Body height 63 [in_i] 63 [in_i] SAVAGE ([facility]) Body weight 1986.08 [oz_av] 1986.08 [oz_av] ATH ELIZABETH ([facility]) Body height 63 [in_i] 63 [in_i] SAVAGE ([facility]) Body weight 1986.08 [oz_av] 1986.08 [oz_av] ATH ELIZABETH ([facility]) Body height 63 [in_i] 63 [in_i] SAVAGE ([facility]) Body weight 1986.08 [oz_av] 1986.08 [oz_av] ATH ELIZABETH ([facility]) Body height 63 [in_i] 63 [in_i] SAVAGE ([facility]) Body weight 1986.08 [oz_av] 1986.08 [oz_av] ATH ELIZABETH ([facility]) Body height 63 [in_i] 63 [in_i] SAVAGE ([facility]) Body weight 1986.08 [oz_av] 1986.08 [oz_av] ATH ELIZABETH ([facility]) Body height 63 [in_i] 63 [in_i] SAVAGE ([facility]) Body weight 1986.08 [oz_av] 1986.08 [oz_av] ATH ELIZABETH ([facility]) Body height 63 [in_i] 63 [in_i] SAVAGE ([facility]) Body weight 1986.08 [oz_av] 1986.08 [oz_av] ATH ELIZABETH ([facility]) Body height 63 [in_i] 63 [in_i] SAVAGE ([facility]) Body weight 57.607 kg 57.607 kg ALPHONSO ([facility], ) Body mass index (BMI) [Ratio] 22.5 kg/m2 22.5 k g/m2 ALPHONSO ([facility] [place], ) Body weight 127.00 [lb_av] 127.00 [lb_av] NESSA T ([facility] [place], ) Body height 63 [in_i] 63 [in_i] ALPHONSO ([facility], ) 5'3" Diastolic blood pressure 70 mm[Hg] 70 mm[Hg] ALPHONSO ([facility] [place], ) Systolic blood pressure 98 mm[Hg] 98 mm[Hg] Bean ANTUNEZ ([facility] [place], ) Body weight 1986.08 [oz_av] 1986.08 [oz_av] ATH ELIZABETH ([facility]) Body height 63 [in_i] 63 [in_i] SAVAGE ([facility]) Body weight 1986.08 [oz_av] 1986.08 [oz_av] ATH ELIZABETH ([facility]) Body height 63 [in_i] 63 [in_i] SAVAGE ([facility]) Body weight 1986.08 [oz_av] 1986.08 [oz_av] ATH ELIZABETH ([facility]) Body height 63 [in_i] 63 [in_i] SAVAGE ([facility]) Body weight 1986.08 [oz_av] 1986.08 [oz_av] ATH ELIZABETH ([facility]) Body height 63 [in_i] 63 [in_i] SAVAGE ([facility]) Body weight 1986.08 [oz_av] 1986.08 [oz_av] ATH ELIZABETH ([facility]) Body height 63 [in_i] 63 [in_i] SAVAGE ([facility]) Body weight 1986.08 [oz_av] 1986.08 [oz_av] ATH ELIZABETH ([facility]) Body height 63 [in_i] 63 [in_i] SAVAGE ([facility]) Body weight 1986.08 [oz_av] 1986.08 [oz_av] ATH ELIZABETH ([facility]) Body weight 1986.08 [oz_av] 1986.08 [oz_av] ATH ELIZABETH ([facility]) Body height 63 [in_i] 63 [in_i] SAVAGE ([facility]) Body weight 1986.08 [oz_av] 1986.08 [oz_av] ATH ELIZABETH ([facility]) Body height 63 [in_i] 63 [in_i] SAVAGE ([facility]) Body height 63 [in_i] 63 [in_i] SAVAGE ([facility]) Body weight 1986.08 [oz_av] 1986.08 [oz_av] ATH ELIZABETH ([facility]) Body height 63 [in_i] 63 [in_i] SAVAGE ([facility]) Body weight 1986.08 [oz_av] 1986.08 [oz_av] ATH ELIZABETH ([facility]) Body height 63 [in_i] 63 [in_i] SAVAGE ([facility]) Body weight 2002.08 [oz_av] 2002.08 [oz_av] ATH ELIZABETH ([facility]) Body height 63 [in_i] 63 [in_i] SAVAGE ([facility]) Body weight 2002.08 [oz_av] 2002.08 [oz_av] ATH ELIZABETH ([facility]) Body height 63 [in_i] 63 [in_i] SAVAGE ([facility]) Body weight 2002.08 [oz_av] 2002.08 [oz_av] ATH ELIZABETH ([facility]) Body height 63 [in_i] 63 [in_i] SAVAGE ([facility]) Body weight 2002.08 [oz_av] 2002.08 [oz_av] ATH ELIZABETH ([facility]) Body height 63 [in_i] 63 [in_i] SAVAGE ([facility]) Body weight 2002.08 [oz_av] 2002.08 [oz_av] ATH ELIZABETH ([facility]) Body height 63 [in_i] 63 [in_i] SAVAGE ([facility]) Body weight 2002.08 [oz_av] 2002.08 [oz_av] ATH ELIZABETH ([facility]) Body height 63 [in_i] 63 [in_i] SAVAGE ([facility]) Body weight 2002.08 [oz_av] 2002.08 [oz_av] ATH ELIZABETH ([facility]) Body height 63 [in_i] 63 [in_i] SAVAGE ([facility]) Body weight 2002.08 [oz_av] 2002.08 [oz_av] ATH ELIZABETH ([facility]) Body height 63 [in_i] 63 [in_i] SAVAGE ([facility]) Body weight 2002.08 [oz_av] 2002.08 [oz_av] ATH ELIZABETH ([facility]) Body height 63 [in_i] 63 [in_i] SAVAGE ([facility]) Body weight 2002.08 [oz_av] 2002.08 [oz_av] ATH ELIZABETH ([facility]) Body height 63 [in_i] 63 [in_i] SAVAGE ([facility]) Body weight 2002.08 [oz_av] 2002.08 [oz_av] ATH ELIZABETH ([facility]) Body height 63 [in_i] 63 [in_i] SAVAGE ([facility]) Body weight 1910.08 [oz_av] 1910.08 [oz_av] ATH ELIZABETH ([facility]) Systolic blood pressure 120 mm[Hg] 120 mm[Hg] A [facility] ([facility]) Body height 63 [in_i] 63 [in_i] SAVAGE ([facility]) Diastolic blood pressure 79 mm[Hg] 79 mm[Hg] SAVAGE ([facility]) Body weight 1910.08 [oz_av] 1910.08 [oz_av] ATH ELIZABETH ([facility]) Systolic blood pressure 120 mm[Hg] 120 mm[Hg] A [facility] ([facility]) Body height 63 [in_i] 63 [in_i] SAVAGE ([facility]) Diastolic blood pressure 79 mm[Hg] 79 mm[Hg] SVAAGE ([facility]) Body weight 1910.08 [oz_av] 1910.08 [oz_av] ATH ELIZABETH ([facility]) Systolic blood pressure 120 mm[Hg] 120 mm[Hg] A [facility] ([facility]) Body height 63 [in_i] 63 [in_i] SAVAGE ([facility]) Diastolic blood pressure 79 mm[Hg] 79 mm[Hg] SAVAGE ([facility]) Body weight 1910.08 [oz_av] 1910.08 [oz_av] ATH ELIZABETH ([facility]) Systolic blood pressure 120 mm[Hg] 120 mm[Hg] A [facility] ([facility]) Body height 63 [in_i] 63 [in_i] SAVAGE ([facility]) Diastolic blood pressure 79 mm[Hg] 79 mm[Hg] SAVAGE ([facility]) Body weight 1910.08 [oz_av] 1910.08 [oz_av] ATH ELIZABETH ([facility]) Systolic blood pressure 120 mm[Hg] 120 mm[Hg] A [facility] ([facility]) Body height 63 [in_i] 63 [in_i] SAVAGE ([facility]) Diastolic blood pressure 79 mm[Hg] 79 mm[Hg] SAVAGE ([facility]) Body weight 1910.08 [oz_av] 1910.08 [oz_av] ATH ELIZABETH ([facility]) Systolic blood pressure 120 mm[Hg] 120 mm[Hg] A [facility] ([facility]) Body height 63 [in_i] 63 [in_i] SAVAGE ([facility]) Diastolic blood pressure 79 mm[Hg] 79 mm[Hg] SAVAGE ([facility]) Body weight 1910.08 [oz_av] 1910.08 [oz_av] ATH ELIZABETH ([facility]) Systolic blood pressure 120 mm[Hg] 120 mm[Hg] A [facility] ([facility]) Body height 63 [in_i] 63 [in_i] SAVAGE ([facility]) Diastolic blood pressure 79 mm[Hg] 79 mm[Hg] SAVAGE ([facility]) Body weight 1910.08 [oz_av] 1910.08 [oz_av] ATH ELIZABETH ([facility]) Systolic blood pressure 120 mm[Hg] 120 mm[Hg] A [facility] ([facility]) Body height 63 [in_i] 63 [in_i] SAVAGE ([facility]) Diastolic blood pressure 79 mm[Hg] 79 mm[Hg] SAVAGE ([facility]) Body weight 1910.08 [oz_av] 1910.08 [oz_av] ATH ELIZABETH ([facility]) Systolic blood pressure 120 mm[Hg] 120 mm[Hg] A [facility] ([facility]) Body height 63 [in_i] 63 [in_i] SAVAGE ([facility]) Diastolic blood pressure 79 mm[Hg] 79 mm[Hg] SAVAGE ([facility]) Body weight 1910.08 [oz_av] 1910.08 [oz_av] ATH ELIZABETH ([facility]) Systolic blood pressure 120 mm[Hg] 120 mm[Hg] A THENA ([facility]) Body height 63 [in_i] 63 [in_i] SAVAGE ([facility]) Diastolic blood pressure 79 mm[Hg] 79 mm[Hg] SAVAGE ([facility]) Body weight 1910.08 [oz_av] 1910.08 [oz_av] ATH ELIZABETH ([facility]) Systolic blood pressure 120 mm[Hg] 120 mm[Hg] A THENA ([facility]) Body height 63 [in_i] 63 [in_i] SAVAGE ([facility]) Diastolic blood pressure 79 mm[Hg] 79 mm[Hg] SAVAGE ([facility]) Body weight 1896.96 [oz_av] 1896.96 [oz_av] ATH ELIZABETH ([facility]) Body height 63 [in_i] 63 [in_i] SAVAGE ([facility]) Body weight 1896.96 [oz_av] 1896.96 [oz_av] ATH ELIZABETH ([facility]) Body height 63 [in_i] 63 [in_i] SAVAGE ([facility]) Body weight 1896.96 [oz_av] 1896.96 [oz_av] ATH ELIZABETH ([facility]) Body height 63 [in_i] 63 [in_i] SAVAGE ([facility]) Body weight 1896.96 [oz_av] 1896.96 [oz_av] ATH ELIZABETH ([facility]) Body height 63 [in_i] 63 [in_i] SAVAGE ([facility]) Body weight 1896.96 [oz_av] 1896.96 [oz_av] ATH ELIZABETH ([facility]) Body height 63 [in_i] 63 [in_i] SAVAGE ([facility]) Body weight 1896.96 [oz_av] 1896.96 [oz_av] ATH ELIZABETH ([facility]) Body height 63 [in_i] 63 [in_i] SAVAGE ([facility]) Body weight 1896.96 [oz_av] 1896.96 [oz_av] ATH ELIZABETH ([facility]) Body height 63 [in_i] 63 [in_i] SAVAGE ([facility]) Body weight 1896.96 [oz_av] 1896.96 [oz_av] ATH ELIZABETH ([facility]) Body height 63 [in_i] 63 [in_i] SAVAGE ([facility]) Body weight 1896.96 [oz_av] 1896.96 [oz_av] ATH ELIZABETH ([facility]) Body height 63 [in_i] 63 [in_i] SAVAGE ([facility]) Body weight 1896.96 [oz_av] 1896.96 [oz_av] ATH ELIZABETH ([facility]) Body height 63 [in_i] 63 [in_i] SAVAGE ([facility]) Body weight 1896.96 [oz_av] 1896.96 [oz_av] ATH ELIZABETH ([facility]) Body height 63 [in_i] 63 [in_i] SAVAGE ([facility]) Body weight 1936 [oz_av] 1936 [oz_av] SAVAGE ([facility]) Body height 63 [in_i] 63 [in_i] SAVAGE ([facility]) Body weight 1936 [oz_av] 1936 [oz_av] SAVAGE ([facility]) Body height 63 [in_i] 63 [in_i] SAVAGE ([facility]) Body weight 1936 [oz_av] 1936 [oz_av] SAVAGE ([facility]) Body height 63 [in_i] 63 [in_i] SAVAGE ([facility]) Body weight 1936 [oz_av] 1936 [oz_av] [place] [facility] Body height 63 [in_i] 63 [in_i] [facility] ([facility]) Body weight 1936 [oz_av] 1936 [oz_av] [facility] ([facility]) Body height 63 [in_i] 63 [in_i] [facility] ([facility]) Body weight 1936 [oz_av] 1936 [oz_av] [facility] ([facility]) Body height 63 [in_i] 63 [in_i] [facility] ([facility]) Body weight 1936 [oz_av] 1936 [oz_av] [facility] ([facility]) Body height 63 [in_i] 63 [in_i] [facility] ([facility]) Body weight 1936 [oz_av] 1936 [oz_av] [facility] ([facility]) Body height 63 [in_i] 63 [in_i] [facility] ([facility]) Body weight 1936 [oz_av] 1936 [oz_av] [facility] ([facility]) Body height 63 [in_i] 63 [in_i] [facility] ([facility]) Body weight 1936 [oz_av] 1936 [oz_av] [facility] ([facility]) Body height 63 [in_i] 63 [in_i] [facility] ([facility]) Body weight 1936 [oz_av] 1936 [oz_av] [facility] ([facility]) Body height 63 [in_i] 63 [in_i] [facility] ([facility]) Body weight 1894.08 [oz_av] 1894.08 [oz_av] ATH ELIZABETH ([facility]) Body height 63 [in_i] 63 [in_i] [facility] ([facility]) Body weight 1894.08 [oz_av] 1894.08 [oz_av] ATH ELIZABETH ([facility]) Body height 63 [in_i] 63 [in_i] [facility] ([facility]) Body weight 1894.08 [oz_av] 1894.08 [oz_av] ATH ELIZABETH ([facility]) Body height 63 [in_i] 63 [in_i] [facility] ([facility]) Body weight 1894.08 [oz_av] 1894.08 [oz_av] ATH ELIZABETH ([facility]) Body height 63 [in_i] 63 [in_i] [facility] ([facility]) Body weight 1894.08 [oz_av] 1894.08 [oz_av] ATH ELIZABETH ([facility]) Body height 63 [in_i] 63 [in_i] [facility] ([facility]) Body weight 1894.08 [oz_av] 1894.08 [oz_av] ATH ELIZABETH ([facility]) Body height 63 [in_i] 63 [in_i] [facility] ([facility]) Body weight 1894.08 [oz_av] 1894.08 [oz_av] ATH ELIZABETH ([facility]) Body height 63 [in_i] 63 [in_i] [facility] ([facility]) Body weight 1894.08 [oz_av] 1894.08 [oz_av] ATH ELIZABETH ([facility]) Body height 63 [in_i] 63 [in_i] [facility] ([facility]) Body weight 1894.08 [oz_av] 1894.08 [oz_av] ATH ELIZABETH ([facility]) Body height 63 [in_i] 63 [in_i] [facility] ([facility]) Body weight 1894.08 [oz_av] 1894.08 [oz_av] ATH ELIZABETH ([facility]) Body height 63 [in_i] 63 [in_i] [facility] ([facility]) Body weight 1894.08 [oz_av] 1894.08 [oz_av] ATH ELIZABETH ([facility]) Body height 63 [in_i] 63 [in_i] [facility] ([facility]) Body weight 1897.6 [oz_av] 1897.6 [oz_av] ATHEN A ([facility]) Systolic blood pressure 131 mm[Hg] 131 mm[Hg] A THENA ([facility]) Body height 63 [in_i] 63 [in_i] [facility] ([facility]) Diastolic blood pressure 88 mm[Hg] 88 mm[Hg] [facility] ([facility]) Body weight 1897.6 [oz_av] 1897.6 [oz_av] ATHEN A ([facility]) Systolic blood pressure 131 mm[Hg] 131 mm[Hg] A [facility] ([facility]) Body height 63 [in_i] 63 [in_i] [place] ([facility]) Diastolic blood pressure 88 mm[Hg] 88 mm[Hg] [facility] ([facility]) Body weight 1897.6 [oz_av] 1897.6 [oz_av] ATHEN A ([facility]) Systolic blood pressure 131 mm[Hg] 131 mm[Hg] A [facility] ([facility]) Body height 63 [in_i] 63 [in_i] [facility] ([facility]) Diastolic blood pressure 88 mm[Hg] 88 mm[Hg] [facility] ([facility]) Body weight 1897.6 [oz_av] 1897.6 [oz_av] ATHEN A ([facility]) Systolic blood pressure 131 mm[Hg] 131 mm[Hg] A [facility] ([facility]) Body height 63 [in_i] 63 [in_i] [facility] ([facility]) Diastolic blood pressure 88 mm[Hg] 88 mm[Hg] [facility] ([facility]) Body weight 1897.6 [oz_av] 1897.6 [oz_av] ATHEN A ([facility]) Systolic blood pressure 131 mm[Hg] 131 mm[Hg] A [facility] ([facility]) Body height 63 [in_i] 63 [in_i] [facility] ([facility]) Diastolic blood pressure 88 mm[Hg] 88 mm[Hg] [facility] ([facility]) Body weight 1897.6 [oz_av] 1897.6 [oz_av] ATHEN A ([facility]) Systolic blood pressure 131 mm[Hg] 131 mm[Hg] A [facility] ([facility]) Body height 63 [in_i] 63 [in_i] [facility] ([facility]) Diastolic blood pressure 88 mm[Hg] 88 mm[Hg] [facility] ([facility]) Body weight 1897.6 [oz_av] 1897.6 [oz_av] ATHEN A ([facility]) Systolic blood pressure 131 mm[Hg] 131 mm[Hg] A [facility] ([facility]) Body height 63 [in_i] 63 [in_i] [facility] ([facility]) Diastolic blood pressure 88 mm[Hg] 88 mm[Hg] [facility] ([facility]) Body weight 1897.6 [oz_av] 1897.6 [oz_av] ATHEN A ([facility]) Systolic blood pressure 131 mm[Hg] 131 mm[Hg] A [facility] ([facility]) Body height 63 [in_i] 63 [in_i] [facility] ([facility]) Diastolic blood pressure 88 mm[Hg] 88 mm[Hg] AS[facility] ([facility]) Body weight 1897.6 [oz_av] 1897.6 [oz_av] ATHEN A ([facility]) Systolic blood pressure 131 mm[Hg] 131 mm[Hg] A [facility] ([facility]) Body height 63 [in_i] 63 [in_i] [facility] ([facility]) Diastolic blood pressure 88 mm[Hg] 88 mm[Hg] [facility] ([facility]) Body weight 1897.6 [oz_av] 1897.6 [oz_av] ATHEN A ([facility]) Systolic blood pressure 131 mm[Hg] 131 mm[Hg] A [facility] ([facility]) Body height 63 [in_i] 63 [in_i] [facility] ([facility]) Diastolic blood pressure 88 mm[Hg] 88 mm[Hg] [facility] ([facility]) Body weight 1897.6 [oz_av] 1897.6 [oz_av] ATHEN A ([facility]) Systolic blood pressure 131 mm[Hg] 131 mm[Hg] A [facility] ([facility]) Body height 63 [in_i] 63 [in_i] [facility] ([facility]) Diastolic blood pressure 88 mm[Hg] 88 mm[Hg] [facility] ([facility]) Body weight 1952 [oz_av] 1952 [oz_av] [facility] ([facility]) Systolic blood pressure 100 mm[Hg] 100 mm[Hg] A THENA ([facility]) Body height 66 [in_i] 66 [in_i] [facility] ([facility]) Diastolic blood pressure 71 mm[Hg] 71 mm[Hg] [facility] ([facility]) Body weight 195 [oz_av] 195 [oz_av] [facility] ([facility]) Systolic blood pressure 100 mm[Hg] 100 mm[Hg] A THENA ([facility]) Body height 66 [in_i] 66 [in_i] [facility] ([facility]) Diastolic blood pressure 71 mm[Hg] 71 mm[Hg] [facility] ([facility]) Body weight 195 [oz_av] 195 [oz_av] [facility] ([facility]) Systolic blood pressure 100 mm[Hg] 100 mm[Hg] A THENA ([facility]) Body height 66 [in_i] 66 [in_i] [facility] ([facility]) Diastolic blood pressure 71 mm[Hg] 71 mm[Hg] [facility] ([facility]) Body weight 195 [oz_av] 195 [oz_av] [facility] ([facility]) Systolic blood pressure 100 mm[Hg] 100 mm[Hg] A [facility] ([facility]) Body height 66 [in_i] 66 [in_i] [facility] ([facility]) Diastolic blood pressure 71 mm[Hg] 71 mm[Hg] [facility] ([facility]) Body weight 1952 [oz_av] 195 [oz_av] [facility] ([facility]) Systolic blood pressure 100 mm[Hg] 100 mm[Hg] A THENA ([facility]) Body height 66 [in_i] 66 [in_i] [facility] ([facility]) Diastolic blood pressure 71 mm[Hg] 71 mm[Hg] [facility] ([facility]) Body weight 1952 [oz_av] 195 [oz_av] [facility] ([facility]) Systolic blood pressure 100 mm[Hg] 100 mm[Hg] A THENA ([facility]) Body height 66 [in_i] 66 [in_i] [facility] ([facility]) Diastolic blood pressure 71 mm[Hg] 71 mm[Hg] [facility] ([facility]) Body weight 1952 [oz_av] 1952 [oz_av] [facility] ([facility]) Systolic blood pressure 100 mm[Hg] 100 mm[Hg] A THENA ([facility]) Body height 66 [in_i] 66 [in_i] [facility] ([facility]) Diastolic blood pressure 71 mm[Hg] 71 mm[Hg] [facility] ([facility]) Body weight 1952 [oz_av] 195 [oz_av] [facility] ([facility]) Systolic blood pressure 100 mm[Hg] 100 mm[Hg] A [facility] ([facility]) Body height 66 [in_i] 66 [in_i] [facility] ([facility]) Diastolic blood pressure 71 mm[Hg] 71 mm[Hg] [facility] ([facility]) Body weight 1952 [oz_av] 195 [oz_av] [facility] ([facility]) Systolic blood pressure 100 mm[Hg] 100 mm[Hg] A THENA ([facility]) Body height 66 [in_i] 66 [in_i] [facility] ([facility]) Diastolic blood pressure 71 mm[Hg] 71 mm[Hg] [facility] ([facility]) Body weight 1952 [oz_av] 1952 [oz_av] [facility] ([facility]) Systolic blood pressure 100 mm[Hg] 100 mm[Hg] A THENA ([facility]) Body height 66 [in_i] 66 [in_i] [facility] ([facility]) Diastolic blood pressure 71 mm[Hg] 71 mm[Hg] [facility] ([facility]) Body weight 1952 [oz_av] 195 [oz_av] [facility] ([facility]) Systolic blood pressure 100 mm[Hg] 100 mm[Hg] A THENA ([facility]) Body height 66 [in_i] 66 [in_i] [facility] ([facility]) Diastolic blood pressure 71 mm[Hg] 71 mm[Hg] [facility] ([facility]) Body weight 1904 [oz_av] 1904 [oz_av] [facility] ([facility]) Body height 66 [in_i] 66 [in_i] [facility] ([facility]) Body weight 1904 [oz_av] 1904 [oz_av] [facility] ([facility]) Body height 66 [in_i] 66 [in_i] [facility] ([facility]) Body weight 1904 [oz_av] 1904 [oz_av] [facility] ([facility]) Body height 66 [in_i] 66 [in_i] [facility] ([facility]) Body weight 1904 [oz_av] 1904 [oz_av] [facility] ([facility]) Body height 66 [in_i] 66 [in_i] [facility] ([facility]) Body weight 1904 [oz_av] 1904 [oz_av] [facility] ([facility]) Body height 66 [in_i] 66 [in_i] [facility] ([facility]) Body weight 1904 [oz_av] 1904 [oz_av] [facility] ([facility]) Body height 66 [in_i] 66 [in_i] SVAAGE ([facility]) Body weight 1904 [oz_av] 1904 [oz_av] [facility] ([facility]) Body height 66 [in_i] 66 [in_i] [facility] ([facility]) Body weight 1904 [oz_av] 1904 [oz_av] [facility] ([facility]) Body height 66 [in_i] 66 [in_i] [facility] ([facility]) Body weight 1904 [oz_av] 1904 [oz_av] [facility] ([facility]) Body height 66 [in_i] 66 [in_i] [facility] ([facility]) Body weight 1904 [oz_av] 1904 [oz_av] [facility] ([facility]) Body height 66 [in_i] 66 [in_i] [facility] ([facility]) Body weight 1904 [oz_av] 1904 [oz_av] [facility] ([facility]) Body height 66 [in_i] 66 [in_i] [facility] ([facility]) Body weight 2048 [oz_av] 2048 [oz_av] [facility] ([facility]) Body height 66 [in_i] 66 [in_i] [facility] ([facility]) Body weight 2048 [oz_av] 2048 [oz_av] [facility] ([facility]) Body height 66 [in_i] 66 [in_i] [facility] ([facility]) Body weight 2048 [oz_av] 2048 [oz_av] [facility] ([facility]) Body height 66 [in_i] 66 [in_i] [facility] ([facility]) Body weight 2048 [oz_av] 2048 [oz_av] [facility] ([facility]) Body height 66 [in_i] 66 [in_i] [facility] ([facility]) Body weight 2048 [oz_av] 2048 [oz_av] [facility] ([facility]) Body height 66 [in_i] 66 [in_i] [facility] ([facility]) Body weight 2048 [oz_av] 2048 [oz_av] [facility] ([facility]) Body height 66 [in_i] 66 [in_i] [facility] ([facility]) Body weight 2048 [oz_av] 2048 [oz_av] [facility] ([facility]) Body height 66 [in_i] 66 [in_i] [facility] ([facility]) Body weight 2048 [oz_av] 2048 [oz_av] [facility] ([facility]) Body height 66 [in_i] 66 [in_i] [facility] ([facility]) Body weight 2048 [oz_av] 2048 [oz_av] [facility] ([facility]) Body height 66 [in_i] 66 [in_i] [facility] ([facility]) Body weight 2048 [oz_av] 2048 [oz_av] [facility] ([facility]) Body height 66 [in_i] 66 [in_i] [facility] ([facility]) Body weight 2047 [oz_av] 2048 [oz_av] [facility] ([facility]) Body height 66 [in_i] 66 [in_i] [facility] ([facility]) Body weight 55.793 kg 55.793 kg [facility], ) Body mass index (BMI) [Ratio] 21.8 kg/m2 21.8 k g/m2 [facility] ([facility] [place], ) Body weight 123.00 [lb_av] 123.00 [lb_av] MEDEN T ([facility] [place], ) Body height 63 [in_i] 63 [in_i] [facility] ([facility], ) 5'3" Diastolic blood pressure 84 mm[Hg] 84 mm[Hg] [facility] [place], ) Systolic blood pressure 128 mm[Hg] 128 mm[Hg] M EDENT ([facility] [place], ) Diastolic blood pressure 0 mm[Hg] Normal (applies to non-numeric results) 0 mm[Hg] [facility] ([facility]) Systolic blood pressure 0 mm[Hg] Normal (applies t o non-numeric results) 0 mm[Hg] [facility] ([facility]) Body mass index (BMI) [Ratio] 0.00 kg/m2 No rmal (applies to non-numeric results) 0.00 kg/m2 [facility] Body weight Measured 0.00 lbs Normal (applies to n on-numeric results) 0.00 lbs [facility]) Body height 0.00 in Normal (applies to non-numeric resu lts) 0.00 in [facility] ([facility]) Body weight 2020 [oz_av] 2020 [oz_av] [place] ([facility]) Systolic blood pressure 98 mm[Hg] 98 mm[Hg] A THENA ([facility]) Body height 66 [in_i] 66 [in_i] [facility] ([facility]) Diastolic blood pressure 72 mm[Hg] 72 mm[Hg] [facility] ([facility]) Body weight 2020 [oz_av] 2020 [oz_av] [facility] ([facility]) Systolic blood pressure 98 mm[Hg] 98 mm[Hg] A [facility] ([facility]) Body height 66 [in_i] 66 [in_i] [facility] ([facility]) Diastolic blood pressure 72 mm[Hg] 72 mm[Hg] [facility] ([facility]) Body weight 2020 [oz_av] 2020 [oz_av] [facility] ([facility]) Systolic blood pressure 98 mm[Hg] 98 mm[Hg] A [facility] ([facility]) Body height 66 [in_i] 66 [in_i] [facility] ([facility]) Diastolic blood pressure 72 mm[Hg] 72 mm[Hg] [facility] ([facility]) Body weight 2020 [oz_av] 2020 [oz_av] [facility] ([facility]) Systolic blood pressure 98 mm[Hg] 98 mm[Hg] A THENA ([facility]) Body height 66 [in_i] 66 [in_i] [facility] ([facility]) Diastolic blood pressure 72 mm[Hg] 72 mm[Hg] [facility] ([facility]) Body weight 2020 [oz_av] 2020 [oz_av] [facility] ([facility]) Systolic blood pressure 98 mm[Hg] 98 mm[Hg] A THENA ([facility]) Body height 66 [in_i] 66 [in_i] [facility] ([facility]) Diastolic blood pressure 72 mm[Hg] 72 mm[Hg] [facility] ([facility]) Body weight 2020 [oz_av] 2020 [oz_av] [facility] ([facility]) Systolic blood pressure 98 mm[Hg] 98 mm[Hg] A [facility] ([facility]) Body height 66 [in_i] 66 [in_i] [facility] ([facility]) Diastolic blood pressure 72 mm[Hg] 72 mm[Hg] [facility] ([facility]) Body weight 2020 [oz_av] 2020 [oz_av] [facility] ([facility]) Systolic blood pressure 98 mm[Hg] 98 mm[Hg] A [facility] ([facility]) Body height 66 [in_i] 66 [in_i] [facility] ([facility]) Diastolic blood pressure 72 mm[Hg] 72 mm[Hg] [facility] ([facility]) Body weight 2020 [oz_av] 2020 [oz_av] [facility] ([facility]) Systolic blood pressure 98 mm[Hg] 98 mm[Hg] A [facility] ([facility]) Body height 66 [in_i] 66 [in_i] [facility] ([facility]) Diastolic blood pressure 72 mm[Hg] 72 mm[Hg] [facility] ([facility]) Body weight 2020 [oz_av] 2020 [oz_av] [facility] ([facility]) Systolic blood pressure 98 mm[Hg] 98 mm[Hg] A [facility] ([facility]) Body height 66 [in_i] 66 [in_i] [facility] ([facility]) Diastolic blood pressure 72 mm[Hg] 72 mm[Hg] [facility] ([facility]) Body weight 2020 [oz_av] 2020 [oz_av] [facility] ([facility]) Systolic blood pressure 98 mm[Hg] 98 mm[Hg] A [facility] ([facility]) Body height 66 [in_i] 66 [in_i] [facility] ([facility]) Diastolic blood pressure 72 mm[Hg] 72 mm[Hg] [facility] ([facility]) Body weight 2020 [oz_av] 2020 [oz_av] [facility] ([facility]) Systolic blood pressure 98 mm[Hg] 98 mm[Hg] A THENA ([facility]) Body height 66 [in_i] 66 [in_i] [facility] ([facility]) Diastolic blood pressure 72 mm[Hg] 72 mm[Hg] [facility] ([facility]) Body weight 2055 [oz_av] 2055 [oz_av] [facility] ([facility]) Body height 66 [in_i] 66 [in_i] [facility] ([facility]) Body weight 2055 [oz_av] 2056 [oz_av] [facility] ([facility]) Body height 66 [in_i] 66 [in_i] [facility] ([facility]) Body weight 2055 [oz_av] 2056 [oz_av] [facility] ([facility]) Body height 66 [in_i] 66 [in_i] [facility] ([facility]) Body weight 2055 [oz_av] 2056 [oz_av] [facility] ([facility]) Body height 66 [in_i] 66 [in_i] [facility] ([facility]) Body weight 2055 [oz_av] 205 [oz_av] [facility] ([facility]) Body height 66 [in_i] 66 [in_i] [facility] ([facility]) Body height 66 [in_i] 66 [in_i] [facility] ([facility]) Body weight 2055 [oz_av] 2056 [oz_av] [facility] ([facility]) Body height 66 [in_i] 66 [in_i] [facility] ([facility]) Body weight 2055 [oz_av] 2056 [oz_av] [facility] ([facility]) Body height 66 [in_i] 66 [in_i] [facility] ([facility]) Body weight 2055 [oz_av] 2056 [oz_av] [facility] ([facility]) Body weight 2055 [oz_av] 2056 [oz_av] [facility] ([facility]) Body height 66 [in_i] 66 [in_i] [facility] ([facility]) Body weight 2055 [oz_av] 2056 [oz_av] [facility] ([facility]) Body height 66 [in_i] 66 [in_i] [facility] ([facility]) Body weight 2056 [oz_av] 2056 [oz_av] [facility] ([facility]) Body height 66 [in_i] 66 [in_i] [facility] ([facility]) Body weight 2098.08 [oz_av] 2098.08 [oz_av] ATH ELIZABETH ([facility]) Systolic blood pressure 112 mm[Hg] 112 mm[Hg] A [facility] ([facility]) Body height 66 [in_i] 66 [in_i] [facility] ([facility]) Diastolic blood pressure 85 mm[Hg] 85 mm[Hg] [facility] ([facility]) Body weight 2098.08 [oz_av] 2098.08 [oz_av] ATH ELIZABETH ([facility]) Systolic blood pressure 112 mm[Hg] 112 mm[Hg] A [facility] ([facility]) Body height 66 [in_i] 66 [in_i] [facility] ([facility]) Diastolic blood pressure 85 mm[Hg] 85 mm[Hg] [facility] ([facility]) Body weight 2098.08 [oz_av] 2098.08 [oz_av] ATH ELIZABETH ([facility]) Systolic blood pressure 112 mm[Hg] 112 mm[Hg] A [facility] ([facility]) Body height 66 [in_i] 66 [in_i] [facility] ([facility]) Diastolic blood pressure 85 mm[Hg] 85 mm[Hg] [facility] ([facility]) Body weight 2098.08 [oz_av] 2098.08 [oz_av] ATH ELIZABETH ([facility]) Systolic blood pressure 112 mm[Hg] 112 mm[Hg] A [facility] ([facility]) Body height 66 [in_i] 66 [in_i] [facility] ([facility]) Diastolic blood pressure 85 mm[Hg] 85 mm[Hg] [facility] ([facility]) Body weight 2098.08 [oz_av] 2098.08 [oz_av] ATH ELIZABETH ([facility]) Systolic blood pressure 112 mm[Hg] 112 mm[Hg] A [facility] ([facility]) Body height 66 [in_i] 66 [in_i] [facility] ([facility]) Diastolic blood pressure 85 mm[Hg] 85 mm[Hg] [facility] ([facility]) Body weight 2098.08 [oz_av] 2098.08 [oz_av] ATH ELIZABETH ([facility]) Systolic blood pressure 112 mm[Hg] 112 mm[Hg] A THENA ([facility]) Body height 66 [in_i] 66 [in_i] [facility] ([facility]) Diastolic blood pressure 85 mm[Hg] 85 mm[Hg] [facility] ([facility]) Body weight 2098.08 [oz_av] 2098.08 [oz_av] ATH ELIZABETH ([facility]) Systolic blood pressure 112 mm[Hg] 112 mm[Hg] A [facility] ([facility]) Body height 66 [in_i] 66 [in_i] [facility] ([facility]) Diastolic blood pressure 85 mm[Hg] 85 mm[Hg] [facility] ([facility]) Body weight 2098.08 [oz_av] 2098.08 [oz_av] ATH ELIZABETH ([facility]) Systolic blood pressure 112 mm[Hg] 112 mm[Hg] A [facility] ([facility]) Body height 66 [in_i] 66 [in_i] [facility] ([facility]) Diastolic blood pressure 85 mm[Hg] 85 mm[Hg] [facility] [facility] Body weight 2098.08 [oz_av] 2098.08 [oz_av] ATH ELIZABETH ([facility]) Systolic blood pressure 112 mm[Hg] 112 mm[Hg] A [facility] ([facility]) Body height 66 [in_i] 66 [in_i] S[facility] ([facility]) Diastolic blood pressure 85 mm[Hg] 85 mm[Hg] S[facility] ([facility]) Body weight 2098.08 [oz_av] 2098.08 [oz_av] ATH ELIZABETH ([facility]) Systolic blood pressure 112 mm[Hg] 112 mm[Hg] A [facility] ([facility]) Body height 66 [in_i] 66 [in_i] [place] ([facility]) Diastolic blood pressure 85 mm[Hg] 85 mm[Hg] [facility] ([facility]) Body weight 2098.08 [oz_av] 2098.08 [oz_av] ATH ELIZABETH ([facility]) Systolic blood pressure 112 mm[Hg] 112 mm[Hg] A THENA ([facility]) Body height 66 [in_i] 66 [in_i] [place] ([facility]) Diastolic blood pressure 85 mm[Hg] 85 mm[Hg] [facility] ([facility]) Body weight 2112 [oz_av] 2112 [oz_av] [facility] ([facility]) Systolic blood pressure 105 mm[Hg] 105 mm[Hg] A [facility] ([facility]) Body height 66 [in_i] 66 [in_i] [place] ([facility]) Diastolic blood pressure 83 mm[Hg] 83 mm[Hg] [facility] ([facility]) Body weight 2112 [oz_av] 2112 [oz_av] [facility] ([facility]) Systolic blood pressure 105 mm[Hg] 105 mm[Hg] A [facility] ([facility]) Body height 66 [in_i] 66 [in_i] [place] ([facility]) Diastolic blood pressure 83 mm[Hg] 83 mm[Hg] [facility] ([facility]) Body weight 2112 [oz_av] 2112 [oz_av] [facility] ([facility]) Systolic blood pressure 105 mm[Hg] 105 mm[Hg] A [facility] ([facility]) Body height 66 [in_i] 66 [in_i] [place] ([facility]) Diastolic blood pressure 83 mm[Hg] 83 mm[Hg] [facility] ([facility]) Body weight 2112 [oz_av] 2112 [oz_av] [facility] ([facility]) Systolic blood pressure 105 mm[Hg] 105 mm[Hg] A [facility] ([facility]) Body height 66 [in_i] 66 [in_i] [facility] ([facility]) Diastolic blood pressure 83 mm[Hg] 83 mm[Hg] [facility] ([facility]) Body weight 2112 [oz_av] 2112 [oz_av] [facility] ([facility]) Systolic blood pressure 105 mm[Hg] 105 mm[Hg] A THENA ([facility]) Body height 66 [in_i] 66 [in_i] [facility] ([facility]) Diastolic blood pressure 83 mm[Hg] 83 mm[Hg] [facility] ([facility]) Body weight 2112 [oz_av] 2112 [oz_av] [facility] ([facility]) Systolic blood pressure 105 mm[Hg] 105 mm[Hg] A THENA ([facility]) Body height 66 [in_i] 66 [in_i] [place] ([facility]) Diastolic blood pressure 83 mm[Hg] 83 mm[Hg] [facility] ([facility]) Body weight 2112 [oz_av] 2112 [oz_av] [facility] ([facility]) Systolic blood pressure 105 mm[Hg] 105 mm[Hg] A [facility] ([facility]) Body height 66 [in_i] 66 [in_i] [place] ([facility]) Diastolic blood pressure 83 mm[Hg] 83 mm[Hg] [facility] ([facility]) Body weight 2112 [oz_av] 2112 [oz_av] [facility] ([facility]) Systolic blood pressure 105 mm[Hg] 105 mm[Hg] A THENA ([facility]) Body height 66 [in_i] 66 [in_i] [place] ([facility]) Diastolic blood pressure 83 mm[Hg] 83 mm[Hg] [facility] ([facility]) Body weight 2112 [oz_av] 2112 [oz_av] [facility] ([facility]) Systolic blood pressure 105 mm[Hg] 105 mm[Hg] A THENA ([facility]) Body height 66 [in_i] 66 [in_i] [facility] ([facility]) Diastolic blood pressure 83 mm[Hg] 83 mm[Hg] [facility] ([facility]) Body weight 2112 [oz_av] 2112 [oz_av] [facility] ([facility]) Systolic blood pressure 105 mm[Hg] 105 mm[Hg] A THENA ([facility]) Body height 66 [in_i] 66 [in_i] [place] ([facility]) Diastolic blood pressure 83 mm[Hg] 83 mm[Hg] [facility] ([facility]) Body weight 2112 [oz_av] 2112 [oz_av] [facility] ([facility]) Systolic blood pressure 105 mm[Hg] 105 mm[Hg] A THENA ([facility]) Body height 66 [in_i] 66 [in_i] [place] ([facility]) Diastolic blood pressure 83 mm[Hg] 83 mm[Hg] [facility] ([facility]) Body weight 59.875 kg 59.875 kg MEDENT ([facility]) Body height 162.6 cm 162.6 cm MEDENT (CHRONIC MANAGER [facility] of [facility], ) Body mass index (BMI) [Ratio] 22.7 kg/m2 22.7 k g/m2 MEDENT (CHRONIC MANAGER [facility] of [facility]) Body surface area 1.64 m2 1.64 m2 MEDENT (CHRONIC MANAGER [facility], ) Body weight 132.00 [lb_av] 132.00 [lb_av] MEDEN T (CHRONIC MANAGER [facility] of [facility]) Body height 64 [in_i] 64 [in_i] MEDENT ([facility]RONIC MANAGER [facility] of [facility]) 5'4" Respiratory rate 16 /min 16 /min MEDENT ( CHRONIC MANAGER [facility], ) Heart rate 117 /min 117 /min MEDENT (CHRONIC MANAGER [facility] of [facility]) Diastolic blood pressure 64 mm[Hg] 64 mm[Hg] MEDENT (CHRONIC MANAGER [facility], ) Systolic blood pressure 92 mm[Hg] 92 mm[Hg] M EDENT ([facility]RONIC MANAGER [facility] of [facility]) Patient Treatment Plan of Care Planned Activity Planned Date Details Description Data Source (s) Trulance 3 mg tablet [facility] ([facility]) Trulance 3 mg tablet [facility] ([facility]) Sulfamethoxazole 800 MG / Trimethoprim 160 MG Oral Tablet [facility] ([facility]) Sucralfate 100 MG/ML Oral Suspension [facility] ([facility]) quetiapine 400 MG Oral Tablet [facility] ([facility]) quetiapine 100 MG Oral Tablet [facility] ([facility]) Prazosin 1 MG Oral Capsule A THENA ([facility]) Ketorolac Tromethamine 10 MG Oral Tablet [facility] ([facility]) Clonazepam 1 MG Oral Tablet [facility] ([facility]) Chantix Starting Month Box 0.5 mg (11)-1 mg (42) tablets in dose pa ck [facility] ([facility]) varenicline 1 MG Oral Tablet [facility] ([facility]) celecoxib 200 MG Oral Capsule [facility] ([facility]) Trulance 3 mg tablet [facility] ([facility]) Sulfamethoxazole 800 MG / Trimethoprim 160 MG Oral Tablet [facility] ([facility]) Sucralfate 100 MG/ML Oral Suspension [facility] ([facility]) quetiapine 400 MG Oral Tablet [facility] ([facility]) quetiapine 100 MG Oral Tablet [facility] ([facility]) Prazosin 1 MG Oral Capsule A THENA ([facility]) Ketorolac Tromethamine 10 MG Oral Tablet [facility] ([facility]) Clonazepam 1 MG Oral Tablet [facility] ([facility]) Chantix Starting Month Box 0.5 mg (11)-1 mg (42) tablets in dose pa ck [facility] ([facility]) Sulfamethoxazole 800 MG / Trimethoprim 160 MG Oral Tablet [facility] ([facility]) Sucralfate 100 MG/ML Oral Suspension [facility] ([facility]) quetiapine 400 MG Oral Tablet [place] ([facility]) quetiapine 100 MG Oral Tablet [place] ([facility]) Prazosin 1 MG Oral Capsule A THENA ([facility]) Ketorolac Tromethamine 10 MG Oral Tablet [place] ([facility]) Furosemide 40 MG Oral Tablet [facility] ([facility]) Clonazepam 1 MG Oral Tablet [facility] ([facility]) Chantix Starting Month Box 0.5 mg (11)-1 mg (42) tablets in dose pa ck [facility] ([facility]) varenicline 1 MG Oral Tablet [facility] ([facility]) celecoxib 200 MG Oral Capsule [facility] ([facility]) Trulance 3 mg tablet [facility] ([facility]) Sulfamethoxazole 800 MG / Trimethoprim 160 MG Oral Tablet [facility] ([facility]) Sucralfate 100 MG/ML Oral Suspension [facility] ([facility]) quetiapine 400 MG Oral Tablet [place] ([facility]) quetiapine 100 MG Oral Tablet [facility] ([facility]) Prazosin 1 MG Oral Capsule A THENA ([facility]) Ketorolac Tromethamine 10 MG Oral Tablet [facility] ([facility]) Clonazepam 1 MG Oral Tablet [facility] ([facility]) Chantix Starting Month Box 0.5 mg (11)-1 mg (42) tablets in dose pa ck [facility] ([facility]) varenicline 1 MG Oral Tablet [facility] ([facility]) celecoxib 200 MG Oral Capsule [facility] ([facility]) varenicline 1 MG Oral Tablet [facility] ([facility]) celecoxib 200 MG Oral Capsule [facility] ([facility]) Trulance 3 mg tablet [facility] ([facility]) Sulfamethoxazole 800 MG / Trimethoprim 160 MG Oral Tablet [facility] ([facility]) Sucralfate 100 MG/ML Oral Suspension [facility] ([facility]) quetiapine 400 MG Oral Tablet [facility] ([facility]) quetiapine 100 MG Oral Tablet [facility] ([facility]) Prazosin 1 MG Oral Capsule A THENA ([facility]) Ketorolac Tromethamine 10 MG Oral Tablet [facility] ([facility]) Clonazepam 1 MG Oral Tablet [facility] ([facility]) celecoxib 200 MG Oral Capsule [facility] ([facility]) Trulance 3 mg tablet [facility] ([facility]) Sulfamethoxazole 800 MG / Trimethoprim 160 MG Oral Tablet [facility] ([facility]) Sucralfate 100 MG/ML Oral Suspension [facility] ([facility]) quetiapine 400 MG Oral Tablet [facility] ([facility]) quetiapine 100 MG Oral Tablet [facility] ([facility]) Prazosin 1 MG Oral Capsule A THENA ([facility]) Ketorolac Tromethamine 10 MG Oral Tablet [facility] ([facility]) Clonazepam 1 MG Oral Tablet [facility] ([facility]) celecoxib 200 MG Oral Capsule [facility] ([facility]) Trulance 3 mg tablet [facility] ([facility]) Sulfamethoxazole 800 MG / Trimethoprim 160 MG Oral Tablet [facility] ([facility]) Sucralfate 100 MG/ML Oral Suspension [facility] ([facility]) quetiapine 400 MG Oral Tablet [facility] ([facility]) quetiapine 100 MG Oral Tablet [facility] ([facility]) Prazosin 1 MG Oral Capsule A THENA ([facility]) Ketorolac Tromethamine 10 MG Oral Tablet [facility] ([facility]) Clonazepam 1 MG Oral Tablet [facility] ([facility]) celecoxib 200 MG Oral Capsule [facility] ([facility])
--- NOTE | 2020-11-12 19:31 | REP ---
INDICATION: CHEST PAIN. COMPARISON: Comparison chest x-ray September 20, 2020. TECHNIQUE: Portable upright AP chest radiograph. FINDINGS: Right hemidiaphragm is somewhat elevated and there is pleural tenting and fibrosis in the right base unchanged. Heart is not felt to be enlarged unchanged. Pulmonary vasculature is not increased. Left pleural angle is sharp. The lung palma are otherwise clear.. IMPRESSION: Elevated right hemidiaphragm with some tenting of the diaphragm consistent with fibrosis. No acute infiltrate. Pulmonary vasculature not increased. Otherwise no acute disease.. <Electronically signed by Ignacio Kramer > 11/12/201926
[2020-11-12] MEDS ORDERED: MORPHINE 4 MG/ML 1ML VIAL/SYRINGE (J2270) IV ONE (19:45)
[2020-11-12 19:47] LABS: BASO # 0.1 10^3/uL (0.0-0.2); BASO % 0.7 % (0.0-1.0); EOS # 0.2 10^3/uL (0.0-0.5); EOS % 2.2 % (0.0-3.0); HEMATOCRIT 39.1 % (36.0-47.0); HEMOGLOBIN 12.2 g/dl (12.0-15.5); LYMPH % 43.4 % (24.0-44.0); MEAN CORPUSCULAR HEMOGLOBIN 30.3 pg (27.0-33.0); MEAN CORPUSCULAR HGB CONC 31.2 g/dl (32.0-36.5); MEAN CORPUSCULAR VOLUME 97.3 fl (80.0-96.0); MONO # 0.5 10^3/uL (0.0-0.8); MONO % 7.8 % (0.0-5.0); NEUTROPHILS # 3.1 10^3/uL (1.5-8.5); NEUTROPHILS % 45.6 % (36.0-66.0); PLATELET COUNT, AUTOMATED 257 10^3/uL (150-450); RED BLOOD COUNT 4.02 10^6/uL (4.00-5.40); WHITE BLOOD COUNT 6.8 10^3/uL (4.0-10.0)
[2020-11-12 19:58] LABS: INR 1.15
[2020-11-12 19:59] LABS: PARTIAL THROMBOPLASTIN TIME 22.8 SECONDS (24.2-38.5)
--- OUTSIDE RECORDS SUMMARY | 2020-11-12 20:08 | CCD ---
Author Author [facility] Address Unknown Phone Unavailable Support Name Relationship Address Phone Jaqueline Galaviz Next Of Kin [address] [place] [address] Lencho Turk MD Next [place] Kin [address] [place] [address] Bob SCHULZ, Juanita Next Of Kin [address] [place] [address] AYO HURST Next Of Kin [address] [facility] 3 [place] [address] Ceasar ORTIZ, Pa Next Of Kin [address] [place] [address] Anna Marie Stephenson Next Of Kin [address] [place] [address] AYO ORTEGA Next Of Kin [address] [facility] [address], [place] [address] PAYTON RAE Next Of Kin [address] [facility] [address] [facility], [address] MORRIS LÓPEZ Next Of Kin [address] [place] [address] DISABLED Next Of Kin Unknown Unavailable DEVI RAE Next Of Kin [address] [facility] [place] [address] JAZMIN ZEE Next Of Kin JOHNSON [address] [facility], [place] [id number] MORRIS CASTILLO Next Of Kin [address] [place] [address] UE Next Of Kin Unknown Unavailable JEFFREYBERNY Next Of Kin [address] [address] morris lópez ECON Unknown [phone] ortega, Musa [address], [place] [address] [phone] Care Team Providers Care Fraud Investigator Name Role Phone Urbano Cobb MD Unavailable [...] Kaushik ORTIZ Unavailable Unavailable Abbi Snyder Unavailable [phone] Chance Mcdonough MD Unavailable Unavailable Chance Mcdonough MD Unavailable Unavailable Chance Mcdonough MD Unavailable Unavailable Chance Mcdonough MD Unavailable Unavailable Chance Mcdonough MD Unavailable Unavailable Chance Mcdonough MD Unavailable Unavailable Chance Mcdonough MD Unavailable Unavailable hCance Mcdonough MD Unavailable Unavailable Chance Mcdonough MD [...] Unavailable Unavailable Chance Mcdonough MD Unavailable Unavailable Chanec Mcdonough MD Unavailable Unavailable Chance Mcdonough MD [...] Chance Mcdonough MD Unavailable Unavailable Juanita Rojas STAFF COUNSELOR STAFF COUNSELOR Unavailable Unavailable StewartRenard lainez Jr, MD Unavailable Unavailable Renard Joiner Jr, MD Unavailable Unavailable Stewart Demond Valadezlas Evens ORTIZ Unavailable Unavailable Stewart JrRenard MD Unavailable Unavailable Stewart JrDemondRenard Evens ORTIZ Unavailable Unavailable Stewart Renard Valadez MD Unavailable Unavailable Stewart JrRenard MD Unavailable Unavailable Stewart JrRenard MD Unavailable Unavailable Stewart JrRenard MD Unavailable Unavailable Marisel JrRenard MD Unavailable Unavailable Marisel JrRenard MD Unavailable Unavailable Marisel JrRenard MD Unavailable Unavailable Stewart JrRenard MD Unavailable Unavailable Stewart JrRenard MD Unavailable Unavailable Stewart JrRenard MD Unavailable Unavailable Marisel JrRneard MD Unavailable Unavailable Stewart JrRenard MD Unavailable Unavailable Marisel JrRenard MD Unavailable Unavailable Stewart JrRenard MD Unavailable Unavailable Marisel JrRenard MD Unavailable Unavailable Stewart JrRenard MD Unavailable Unavailable Marisel JrRenard MD Unavailable Unavailable Marisel JrRenard MD Unavailable Unavailable Stewart JrRenard MD Unavailable Unavailable Marisel JrRenard MD Unavailable Unavailable Marisel JrRenard MD Unavailable Unavailable Marisel JrRenard MD Unavailable Unavailable Stewart JrRenard MD Unavailable Unavailable Stewart JrRenard MD Unavailable Unavailable Stewart JrRenard MD Unavailable Unavailable Stewart JrRenard MD Unavailable Unavailable Stewart Renard Valadez MD Unavailable Unavailable Marisel Renard Valadez MD Unavailable Unavailable Marisel Renard Valadez MD Unavailable Unavailable Stewart JrRenard MD Unavailable Unavailable Marisel JrRenard MD Unavailable Unavailable Stewart JrRenard MD Unavailable Unavailable Stewart Renard Valadez MD Unavailable Unavailable Marisel Renard Valadez MD Unavailable Unavailable Marisel JrRenard MD Unavailable Unavailable Marisel JrRenard MD Unavailable Unavailable Marisel JrRenard MD Unavailable Unavailable Stewart JrRenard MD Unavailable Unavailable Marisel JrRenard MD Unavailable Unavailable Stewart Renard Valadez MD Unavailable Unavailable Stewart JrRenard MD Unavailable Unavailable Stewart JrRenard MD Unavailable Unavailable Stewart JrRenard MD Unavailable Unavailable Stewart JrRenard MD Unavailable Unavailable Stewart JrRenard MD Unavailable Unavailable Stewart JrRenard MD Unavailable Unavailable Stewart JrRenard MD Unavailable Unavailable Marisel JrRenard MD Unavailable Unavailable Stewart JrRenard MD Unavailable Unavailable Stewart JrRenard MD Unavailable Unavailable Marisel Jr, Renard Horner MD Unavailable Unavailable Stewart Jr, Renard Horner MD Unavailable Unavailable Stewart Jr, Renard Horner MD Unavailable Unavailable Marisel Jr, Renard Horner MD Unavailable Unavailable Marisel Jr, Renard Horner MD Unavailable Unavailable Stewart Jr, Renard Horner MD Unavailable Unavailable Marisel Jr, Renard Horner MD Unavailable Unavailable Stewart Jr, Renard Horner MD Unavailable Unavailable Marisel Jr, Renard Horner MD Unavailable Unavailable Marisel Jr, Renard Horner MD Unavailable Unavailable Marisel Jr, Renard Horner MD Unavailable Unavailable Stewart Jr, Renard Horner MD Unavailable Unavailable Stewart Jr, Renard Horner MD Unavailable Unavailable Stewart Jr, Renard Horner MD Unavailable Unavailable Marisel Jr, Renard Horner MD Unavailable Unavailable Marisel Jr, Renard Horner MD Unavailable Unavailable Stewart Jr, Renard Horner MD Unavailable Unavailable Marisel Jr, Renard Horner MD Unavailable Unavailable Marisel Jr, Renard Horner MD Unavailable Unavailable Stewart Jr, Renard Horner MD Unavailable Unavailable Stewart Jr, Renard Horner MD Unavailable Unavailable Stewart Jr, Renard Horner MD Unavailable Unavailable Stewart Jr, Renard Horner MD Unavailable Unavailable Stewart Jr, Renard Horner MD Unavailable Unavailable Marisel Jr, Renard Horner MD Unavailable Unavailable Stewart Jr, Renard Horner MD Unavailable Unavailable Rojas, F Juanita STAFF COUNSELOR-BC Unavailable Unavailable Rojas, F Juanita STAFF COUNSELOR-BC Unavailable Unavailable Rojas, F Juanita STAFF COUNSELOR-BC Unavailable Unavailable Rojas, F Juanita STAFF COUNSELOR-BC Unavailable Unavailable Rojas, F Juanita STAFF COUNSELOR-BC Unavailable Unavailable Rojas, F Juanita STAFF COUNSELOR-BC Unavailable Unavailable Rjoas, F Juanita STAFF COUNSELOR-BC Unavailable Unavailable Rojas, F Juanita STAFF COUNSELOR-BC Unavailable Unavailable Rojas, F Juanita STAFF COUNSELOR-BC Unavailable Unavailable Rojas, F Juanita STAFF COUNSELOR-BC Unavailable Unavailable Rojas, F Juanita STAFF COUNSELOR-BC Unavailable Unavailable Rojas, F Juanita STAFF COUNSELOR-BC Unavailable Unavailable Rojas, F Juanita STAFF COUNSELOR-BC Unavailable Unavailable Rojas, F Juanita STAFF COUNSELOR-BC Unavailable Unavailable Rojas, F Juanita STAFF COUNSELOR-BC Unavailable Unavailable Rojas, F Juanita STAFF COUNSELOR-BC Unavailable Unavailable Rojas, F Juanita STAFF COUNSELOR-BC Unavailable Unavailable Rojas, F Juanita STAFF COUNSELOR-BC Unavailable Unavailable Rojas, F Juanita STAFF COUNSELOR-BC Unavailable Unavailable Rojas, F Juanita STAFF COUNSELOR-BC Unavailable Unavailable Rojas, F Juanita STAFF COUNSELOR-BC Unavailable Unavailable Rojas, F Juanita STAFF COUNSELOR-BC Unavailable Unavailable Sevilla, Sumendra MD Unavailable Unavailable [...] Rah Izaguirre MD Unavailable Unavailable Bean Adkins SENIOR QA TESTER Unavailable Unavailable Bean Adkins SENIOR QA TESTER Unavailable Unavailable Bean Adkins SENIOR QA TESTER Unavailable Unavailable Bena Adkins SENIOR QA TESTER Unavailable Unavailable Bean Adkins SENIOR QA TESTER Unavailable Unavailable Bean Adkins SENIOR QA TESTER Unavailable Unavailable Bean Adkins SENIOR QA TESTER Unavailable Unavailable Bean Adkins SENIOR QA TESTER Unavailable Unavailable VolBean martinez SENIOR QA TESTER Unavailable Unavailable Volcko, M Lila SENIOR QA TESTER Unavailable Unavailable Volcko, M Lila SENIOR QA TESTER Unavailable Unavailable Volcko, M Lila SENIOR QA TESTER Unavailable Unavailable Volcko, M Lila SENIOR QA TESTER Unavailable Unavailable Volcko, M Lila SENIOR QA TESTER Unavailable Unavailable Volcko, M Lila SENIOR QA TESTER Unavailable Unavailable Volcko, M Lila SENIOR QA TESTER Unavailable Unavailable Volcko, M Lila SENIOR QA TESTER Unavailable Unavailable Volcko, M Lila SENIOR QA TESTER Unavailable Unavailable Volcko, M Lila SENIOR QA TESTER Unavailable Unavailable Volcko, M Lila SENIOR QA TESTER Unavailable Unavailable Volcko, M Lila SENIOR QA TESTER Unavailable Unavailable Volcko, M Lila SENIOR QA TESTER Unavailable Unavailable Volcko, M Lila SENIOR QA TESTER Unavailable Unavailable Volcko, M Lila SENIOR QA TESTER Unavailable Unavailable Volcko, M Lila SENIOR QA TESTER Unavailable Unavailable Volcko, M Lila SENIOR QA TESTER Unavailable Unavailable Volcko, M Lila SENIOR QA TESTER Unavailable Unavailable Volcko, M Lila SENIOR QA TESTER Unavailable Unavailable Volcko, M Lila SENIOR QA TESTER Unavailable Unavailable Volcko, M Lila SENIOR QA TESTER Unavailable Unavailable Volcko, M Lila SENIOR QA TESTER Unavailable Unavailable Volcko, M Lila SENIOR QA TESTER Unavailable Unavailable Volcko, M Lila SENIOR QA TESTER Unavailable Unavailable Volcko, M Lila SENIOR QA TESTER Unavailable Unavailable Volcko, M Lila SENIOR QA TESTER Unavailable Unavailable Volcko, M Lila SENIOR QA TESTER Unavailable Unavailable Volcko, M Lila SENIOR QA TESTER Unavailable Unavailable Chance Mcdonough MD Unavailable Unavailable [...] Mcdonough MD Unavailable Unavailable Aureliano, K Lillian PMH-SENIOR QA TESTER Unavailable Unavailable Sorrento, K Lillian PMH-SENIOR QA TESTER Unavailable Unavailable Aureliano, K Lillian PMH-SENIOR QA TESTER Unavailable Unavailable Aureliano, K Lillian PMH-SENIOR QA TESTER Unavailable Unavailable Sorrento, K Lillian PMH-SENIOR QA TESTER Unavailable Unavailable Sorrento, K Lillian PMH-SENIOR QA TESTER Unavailable Unavailable Franco TURK MD Unavailable Unavailable [...] is protected by Article 27-F of the [facility] Public Health law. If you continue you may have access to information: Regarding HIV / AIDS; Provided by facilities licensed or operated by the [facility] Office of Mental Health; or Provided by the [facility] Office for People With Developmental Disabilities. If such information is present, then the following [facility] mandated warning applies: This information has been [...] law may result in a fine or senior living sentence or both. A general authorization for the release of medical or other information is NOT sufficient authorization for further disc losure. Allergies and Adverse Reactions Type Description Substance Reaction Status Data Source(s ) Propensity to adverse reactions to substance penicillin v po tassium Penicillin V Potassium 250 MG Oral Tablet anaphylaxis Active [facility] ( [facility]) Allergy to substance Allergy to substance Doxycycline [facility] ([facility]) Allergy to substance Allergy to substance Doxycycline [facility] ([facility]) Allergy to substance Allergy to substance Doxycycline [facility] ([facility]) Allergy to substance Allergy to substance Doxycycline [facility] ([facility]) Allergy to substance Allergy to substance Doxycycline [facility] ([facility]) Allergy to substance Allergy to substance Doxycycline [facility] ([facility]) Allergy to substance Allergy to substance Doxycycline [facility] ([facility]) Allergy to substance Allergy to substance Doxycycline [facility] ([facility]) Allergy to substance Allergy to substance Doxycycline [facility] ([facility]) Allergy to substance Allergy to substance Doxycycline [facility] ([facility]) Allergy to substance Allergy to substance Doxycycline [facility] ([facility]) Drug allergy DOXYCYCLINE DOXYCYCLINE generalized rash U [facility] Family History Family Member Name Family Member Gender Family Member Status Date o f Status Description Data Source(s) Unknown Unknown Problem [facility] ([facility]) Encounters Encounter Providers Location Date Indications Data Source(s ) Constantin Izaguirre MD: [address] [place] [address], Ph. Attender: Constantin Izaguirre MD [facility] Medical 11/08/2020 12:00:00 AM EST [facility] ([facility]) Abbi Snyder LMSW: [address] [place] [address], Ph. Attender: Abbi Snyder [facility] Medical 10/26/2020 12:00:00 AM EST [place] ([facility]) Abbi Snyder LMSW: [address] [place] [address], Ph. Attender: Abbi Snyder [facility] Medical 10/26/2020 12:00:00 AM EST [place] ([facility]) Office Visit Attender: Kaushik Powell/Serena/Zohaib/Gris lew 10/11/2020 07:45:00 AM EST [facility] ([facility]) Abbi Snyder LMSW: [address] [place] [address], Ph. Attender: Abbi Snyder [facility] Medical 09/30/2020 12:00:00 AM EST [place] ([facility]) Abbi Snyder LMSW: [address], [place] [address], Ph. Attender: Abbi Snyder [facility] Medical 09/30/2020 12:00:00 AM EST [place] ([facility]) Abbi Snyder, [facility]: [address], [place] [address], Ph. Attender: Abbi Snyder [facility] Medical 09/30/2020 12:00:00 AM EST [place] ([facility]) Office Visit Attender: Kaushik Powell/Serena/Zohaib/Gris indl 09/27/2020 08:15:00 AM EST [facility] ([facility]) Pa Mcdonough MD: [address] [place] [address], Ph. Attender: Pa Mcdonough MD [facility] Medical 09/23/2020 12:00:00 AM EST [place] ([facility]) Pa Mcdonough MD: [address] [place] [address], Ph. Attender: Pa Mcdonough MD [facility] Medical 09/23/2020 12:00:00 AM EST [place] ([facility]) Pa Mcdonough MD: [address] [place] [address], Ph. Attender: Pa Mcdonough MD [facility] Medical 09/23/2020 12:00:00 AM EST [place] ([facility]) Pa Mcdonough MD: [address] [place] [address], Ph. Attender: Pa Mcdonough MD [facility] Medical 09/23/2020 12:00:00 AM EST [place] ([facility]) Abbi Fariagerardo, [facility]: [address], [place] [address], Ph. Attender: Abbi Snyder [facility] Medical 09/14/2020 12:00:00 AM EST [place] ([facility]) Abbi Snyder, [facility]: [address], [place] [address], Ph. Attender: Abbi Snyder [facility] Medical 09/14/2020 12:00:00 AM EST [place] ([facility]) Abbi Snyder, CERTIFIED DRIVER EXAMINER: [address], [place] [address], Ph. Attender: Abbi Snyder [facility] Medical 09/14/2020 12:00:00 AM EST [place] ([facility]) Abbi Snyder, CERTIFIED DRIVER EXAMINER: [address], [place] [address], Ph. Attender: Abbi Snyder [facility] Medical 09/14/2020 12:00:00 AM EST [place] ([facility]) Abbi Snyder, [facility]: [address], [place] [address], Ph. Attender: Abbi Snyder [facility] Medical 09/14/2020 12:00:00 AM EST [place] ([facility]) Abbi Snyder, [facility]: [address], [place] [address], Ph. Attender: Abbi Snyder [facility] Medical 09/01/2020 12:00:00 AM EST [place] ([facility]) Abbi Snyder, [facility]: [address], [place] [address], Ph. Attender: Abbi Snyder [facility] Medical 09/01/2020 12:00:00 AM EST [place] ([facility]) Abbi aFriagerardo, [facility]: [address] [place] [address], Ph. Attender: Abbi Snyder [facility] Medical 09/01/2020 12:00:00 AM EST [place] ([facility]) Abbi Snyder, [facility]: [address] [place] [address], Ph. Attender: Abbi Snyder [facility] Medical 09/01/2020 12:00:00 AM EST [place] ([facility]) [facility] [address] [place] [address], Ph. Attender: Abbi Snyder [facility] Medical 09/01/2020 12:00:00 AM EST [place] ([facility]) [facility] [address] [place] [address], Ph. Attender: Abbi Snyder [facility] Medical 09/01/2020 12:00:00 AM EST [place] ([facility]) Outpatient Attender: Mallory Powell/Serena/Salvador wu/Saundra 08/26/2020 08:30:00 AM EST [facility] ([facility] ) [facility] [address] [place] [address], Ph. Attender: Abbi Snyder [facility] Medical 08/26/2020 12:00:00 AM EST [place] ([facility]) Abbi Fariagerardo [facility]: [address] [place] [address], Ph. Attender: Abbi Snyder [facility] Medical 08/26/2020 12:00:00 AM EST [place] ([facility]) Abbi Gianagerardo [facility]: [address] [place] [address], Ph. Attender: Abbi Snyder [facility] Medical 08/26/2020 12:00:00 AM EST [place] ([facility]) Abbi Snyder, [facility]: [address] [place] [address], Ph. Attender: Abbi Snyder [facility] Medical 08/26/2020 12:00:00 AM EST [place] ([facility]) Abbi Snyder, [facility]: [address] [place] [address], Ph. Attender: Abbi Snyder [facility] Medical 08/26/2020 12:00:00 AM EST [place] ([facility]) [facility] [address] [place] [address], Ph. Attender: Abbi Snyder [facility] Medical 08/26/2020 12:00:00 AM EST [place] ([facility]) [facility] [address] [place] [address], Ph. Attender: Abbi Snyder [facility] Medical 08/26/2020 12:00:00 AM EST [place] ([facility]) Outpatient Attender: Kaushik Powell/Serena/Zohaib/Gris indl 08/19/2020 09:45:00 AM EST [facility] ([facility]) Pa Mcdonough MD: [address] [place] [address], Ph. Attender: Pa Mcdonough MD [facility] Medical 08/18/2020 12:00:00 AM EST [place] ([facility]) Abbi Snyder, [facility]: [address] [place] [address], Ph. Attender: Abbi Snyder [facility] Medical 08/18/2020 12:00:00 AM EST [place] ([facility]) Pa Mcdonough MD: [address] [place] [address], Ph. Attender: Pa Mcdonough MD [facility] Medical 08/18/2020 12:00:00 AM EST [place] ([facility]) Abbi Snyder [facility]: [address] [place] [address], Ph. Attender: Abbi Snyder [facility] Medical 08/18/2020 12:00:00 AM EST [place] ([facility]) Pa Mcdonough MD: [address] [place] [address], Ph. Attender: Pa Mcdonough MD [facility] Medical 08/18/2020 12:00:00 AM EST [place] ([facility]) Abbi Snyder [facility]: [address] [place] [address], Ph. Attender: Abbi Snyder [facility] Medical 08/18/2020 12:00:00 AM EST [place] ([facility]) Pa Mcdonough MD: [address] [place] [address], Ph. Attender: Pa Mcdonough MD [facility] Medical 08/18/2020 12:00:00 AM EST [place] ([facility]) Abbi Snyder [facility]: [address] [place] [address], Ph. Attender: Abbi Snyder [facility] Medical 08/18/2020 12:00:00 AM EST [place] ([facility]) Pa Mcdonough MD: [address] [place] [address], Ph. Attender: Pa Mcdonough MD [facility] Medical 08/18/2020 12:00:00 AM EST [place] ([facility]) Abbiиван Fariagerardo [facility]: [address] [place] [address], Ph. Attender: Abbi Snyder [facility] Medical 08/18/2020 12:00:00 AM EST [place] ([facility]) Pa Mcdonough MD: [address] [place] [address], Ph. Attender: Pa Mcdonough MD [facility] Medical 08/18/2020 12:00:00 AM EST [place] ([facility]) Abbi Snyder [facility]: [address] [place] [address], Ph. Attender: Abbi Snyder [facility] Medical 08/18/2020 12:00:00 AM EST [place] ([facility]) Pa Mcdonough MD: [address] [place] [address], Ph. Attender: Pa Mcdonough MD [facility] Medical 08/18/2020 12:00:00 AM EST [place] ([facility]) Abbi Snyder [facility]: [address] [place] [address], Ph. Attender: Abbi Snyder [facility] Medical 08/18/2020 12:00:00 AM EST [place] ([facility]) Pa Mcdonough MD: [address] [place] [address], Ph. Attender: Pa Mcdonough MD [facility] Medical 08/18/2020 12:00:00 AM EST [place] ([facility]) Abbi Snyder LMSW: [address] [place] [address], Ph. Attender: Abbi Snyder [facility] Medical 08/18/2020 12:00:00 AM EST [place] ([facility]) Pa Mcdonough MD: [address] [place] [address], Ph. Attender: Pa Mcdonough MD [facility] Medical 08/18/2020 12:00:00 AM EST [place] ([facility]) Abbi Gianagerardo, [facility]: [address] [place] [address], Ph. Attender: Abbi Gianagerardo [facility] Medical 08/18/2020 12:00:00 AM EST [place] ([facility]) Outpatient Attender: Pa Mcdonough MD 08/06/2020 12:30:00 PM EDT [facility] Outpatient Attender: Joseph Powell/Serena/Zohaib/Eamon velasco 08/06/2020 10:00:00 AM EDT [facility] ([facility]) Abbi Gianagerardo [facility]: [address] [place] [address], Ph. Attender: Abbiиван Fariagerardo [facility] Medical 08/06/2020 12:00:00 AM EDT [place] ([facility]) Abbi GianaDEMETRA carrilloSW: [address] [place] [address], Ph. Attender: Abbi Gianagerardo [facility] Medical 08/06/2020 12:00:00 AM EDT [place] ([facility]) Abbi Snyder LMSW: [address] [place] [address], Ph. Attender: Abbi Gianagerardo [facility] Medical 08/06/2020 12:00:00 AM EDT [place] ([facility]) Abbi Snyder LMSW: [address], [place] [address], Ph. Attender: Abbi Snyder [facility] Medical 08/06/2020 12:00:00 AM EDT [facility] ([facility]) Abbi Snyder, CERTIFIED DRIVER EXAMINER: [address], [place] [address], Ph. Attender: Abbi Snyder [facility] Medical 08/06/2020 12:00:00 AM EDT [facility] ([facility] [facility] Abbi Snyder, [facility]: [address], [place] [address], Ph. Attender: Abbi Snyder [facility] Medical 08/06/2020 12:00:00 AM EDT [facility]) Abbi Snyder, [facility]: [address] [place] [address], Ph. Attender: Abbi Snyder [facility] Medical 08/06/2020 12:00:00 AM EDT [facility]) Abbi Snyder, [facility]: [address], [place] [address], Ph. Attender: Abbi Snyder [facility] Medical 08/06/2020 12:00:00 AM EDT [facility] ([facility]) Abbi Snyder, [facility]: [address], [place] [address], Ph. Attender: Abbi Snyder [facility] Medical 08/06/2020 12:00:00 AM EDT [facility] ([facility]) Abbi Snyder, [facility]: [address], [place] [address], Ph. Attender: Abbi Snyder [facility] Medical 08/06/2020 12:00:00 AM EDT [facility] ([facility]) Abbi Snyder, [facility]: [address], [place] [address], Ph. Attender: Abbi Snyder [facility] Medical 08/06/2020 12:00:00 AM EDT [facility]) Abbi Snyder, [facility]: [address], [place] [address], Ph. Attender: Abbi Snyder [facility] Medical 08/04/2020 12:00:00 AM EDT [facility]) Abbi Snyder, [facility]: [address], [place] [address], Ph. Attender: Abbi Snyder [facility] Medical 08/04/2020 12:00:00 AM EDT [facility]) Abbi Snyder, [facility]: [address], [place] [address], Ph. Attender: Abbi Snyder [facility] Medical 08/04/2020 12:00:00 AM EDT [facility] ([facility]) Abbi Snyder, [facility]: [address], [place] [address], Ph. Attender: Abbi Snyder [facility] Medical 08/04/2020 12:00:00 AM EDT [facility] ([facility]) Abbi Snyder, [facility]: [address], [place] [address], Ph. Attender: Abbi Snyder [facility] Medical 08/04/2020 12:00:00 AM EDT [facility]) Abbi Fariagerardo, [facility]: [address], [place] [address], Ph. Attender: Abbi Snyder [facility] Medical 08/04/2020 12:00:00 AM EDT [facility] ([facility]) Abbi Snyder, [facility]: [address] [place] [address], Ph. Attender: Abbi Snyder [facility] Medical 08/04/2020 12:00:00 AM EDT [facility] ([facility]) Abbi Snyder, [facility]: [address] [place] [address], Ph. Attender: Abbi Snyder [facility] Medical 08/04/2020 12:00:00 AM EDT [facility] ([facility]) Abbi Snyder, [facility]: [address] [place] [address], Ph. Attender: Abbi Snyder [facility] Medical 08/04/2020 12:00:00 AM EDT [facility] ([facility]) Abbi Snyder, [facility]: [address] [place] [address], Ph. Attender: Abbi Snyder [facility] Medical 08/04/2020 12:00:00 AM EDT [facility] ([facility]) [facility] [address] [place] [address], Ph. Attender: Abbi Snyder [facility] Medical 08/04/2020 12:00:00 AM EDT [facility] ([facility]) Outpatient Attender: Pa Mcdonough MD FP 07/26/2020 01:08:01 PM EDT [facility] Outpatient Attender: Pa Mcdonough MD FP 07/26/2020 08:47:01 AM EDT [facility] Outpatient Attender: Joseph Powell/Serena/Zohaib/Eamon velasco 07/23/2020 10:00:00 AM EDT [facility] ([facility] actice, ) Outpatient Attender: Pa Mcdonough MD FP 07/22/2020 03:40:03 PM EDT [facility] Outpatient Attender: Pa Mcdonough MD FP 07/22/2020 03:39:02 PM EDT [facility] Outpatient Attender: Pa Mcdonough MD FP 07/20/2020 12:05:08 PM EDT [facility] Outpatient Attender: Pa Mcdonough MD FP 07/12/2020 09:05:07 AM EDT [facility] Outpatient Attender: Pa Mcdonough MD FP 07/12/2020 09:05:05 AM EDT [facility] Outpatient Attender: Pa Mcdonough MD FP 07/12/2020 08:18:04 AM EDT [facility] Outpatient Attender: Pa Mcdonough MD FP 07/12/2020 08:18:02 AM EDT [facility] Outpatient Attender: Pa Mcdonough MD FP 07/07/2020 10:23:01 AM EDT [facility] Outpatient Attender: Pa Mcdonough MD FP 06/29/2020 09:48:02 AM EDT [facility] Outpatient Attender: Pa Mcdonough MD FP 06/25/2020 11:11:02 AM EDT [facility] Outpatient Attender: Pa Mcdonough MD FP 06/25/2020 08:21:01 AM EDT [facility] Outpatient Attender: Pa Mcdonough MD FP 06/23/2020 09:54:00 AM EDT [facility] Outpatient Attender: Pa Mcdonough MD FP 06/16/2020 08:01:00 AM EDT [facility] Outpatient Attender: Pa Mcdonough MD FP 06/11/2020 07:33:01 AM EDT [facility] Outpatient Attender: Pa Mcdonough MD FP 06/07/2020 10:03:00 AM EDT [facility] Outpatient Attender: Pa Mcdonough MD FP 06/03/2020 05:39:00 PM EDT [facility] Outpatient Attender: Pa Mcdonough MD FP 06/03/2020 12:03:01 PM EDT [facility] Outpatient Attender: Pa Mcdonough MD FP 06/03/2020 09:02:00 AM EDT [facility] Outpatient Attender: Pa Mcdonough MD FP 05/28/2020 12:23:00 PM EDT [facility] Outpatient Attender: Pa Mcdonough MD FP 05/27/2020 08:58:01 AM EDT [facility] Outpatient Attender: Pa Mcdonough MD FP 05/26/2020 11:15:01 AM EDT [facility] Outpatient Attender: Pa Mcdonough MD FP 05/26/2020 10:48:00 AM EDT [facility] Outpatient Attender: Mallory Nicholsonxochitlpatricio KRZYSZTOF Powell/Serena/Salvador wu/Saundra 05/26/2020 09:00:00 AM EDT [facility] ([facility] ) Outpatient Attender: Pa Mcdonough MD FP 05/25/2020 10:05:01 AM EDT [facility] Outpatient Attender: Pa Mcdonough MD FP 05/19/2020 12:02:23 AM EDT [facility] Outpatient Attender: Pa Mcdonough MD FP 05/18/2020 10:33:01 AM EDT [facility] Outpatient Attender: Pa Mcdonough MD FP 05/14/2020 08:01:14 PM EDT [facility] Outpatient Attender: Pa Mcdonough MD FP 05/14/2020 12:02:19 AM EDT [facility] Outpatient Attender: Pa Mcdonough MD FP 05/13/2020 09:13:01 AM EDT [facility] Outpatient Attender: Pa Mcdonough MD FP 05/06/2020 10:28:01 AM EDT [facility] Outpatient Attender: Pa Mcdonough MD FP 05/04/2020 09:17:00 AM EDT [facility] Outpatient Attender: Pa Mcdonough MD FP 05/04/2020 09:08:01 AM EDT [facility] Outpatient Attender: Pa Mcdonough MD FP 04/27/2020 12:07:00 PM EDT [facility] Outpatient Attender: Pa Mcdonough MD FP 04/27/2020 12:06:03 PM EDT [facility] Outpatient Attender: Pa Mcdonough MD FP 04/22/2020 02:16:01 PM EDT [facility] Outpatient Attender: Pa Mcdonough MD FP 04/22/2020 12:02:15 AM EDT [facility] Outpatient Attender: Pa Mcdonough MD FP 04/21/2020 01:23:00 PM EDT [facility] Outpatient Attender: Pa Mcdonough MD FP 04/19/2020 02:00:02 PM EDT [facility] Outpatient Attender: Pa Mcdonough MD FP 04/15/2020 10:54:00 AM EDT [facility] Outpatient Attender: Pa Mcdonough MD FP 04/13/2020 01:30:08 PM EDT [facility] Outpatient 04/13/2020 05:47:00 AM EDT [facility] Imaging Outpatient Attender: Mallory Nicholsonxochitlpatricio KRZYSZTOF Powell/Serena/Salvador wu/Reindl 04/08/2020 01:00:00 PM EDT [facility] ([facility] ) Outpatient Attender: Pa Mcdonough MD FP 04/08/2020 09:56:01 AM EDT [facility] Outpatient Attender: Pa Mcdonough MD FP 04/07/2020 08:01:03 PM EDT [facility] Health Outpatient Attender: Pa Mcdonough MD FP 04/07/2020 02:30:13 PM EDT [facility] Outpatient Attender: Pa Mcdonough MD FP 04/07/2020 02:30:01 PM EDT [facility] Outpatient Attender: Pa Mcdonough MD FP 04/07/2020 10:01:01 AM EDT [facility] Health Outpatient Attender: Pa Mcdonough MD FP 04/05/2020 05:22:02 PM EDT [facility] Outpatient Attender: Pa Mcdonough MD FP 04/05/2020 05:22:01 PM EDT [facility] Outpatient Attender: Pa Mcdonough MD FP 04/05/2020 02:23:00 PM EDT [facility] [address] [place] [address] 04/05/2020 12:00:00 AM EDT [facility] ([facility]) Outpatient Attender: Pa Mcdonough MD FP 04/02/2020 10:03:01 AM EDT [facility] Outpatient Attender: Pa Mcdonough MD FP 04/02/2020 09:52:03 AM EDT [facility] Outpatient Attender: Pa Mcdonough MD FP 04/02/2020 09:52:01 AM EDT [facility] Outpatient Attender: Pa Mcdonough MD FP 04/01/2020 03:25:00 PM EDT [facility] Outpatient Attender: Pa Mcdonough MD FP 03/31/2020 12:29:01 PM EDT [facility] Outpatient Attender: Pa Mcdonough MD FP 03/30/2020 08:01:01 PM EDT [facility] Outpatient Attender: Pa Mcdonough MD FP 03/30/2020 10:00:00 AM EDT [facility] Outpatient Attender: Pa Mcdonough MD FP 03/29/2020 02:47:01 PM EDT [facility] Outpatient Attender: Pa Mcdonough MD FP 03/24/2020 11:32:01 AM EDT [facility] Outpatient Attender: Pa Mcdonough MD FP 03/23/2020 07:45:17 PM EDT [facility] Outpatient Attender: Pa Mcdonough MD FP 03/17/2020 02:24:01 PM EDT [facility] Outpatient Attender: Pa Mcdonough MD FP 03/15/2020 02:30:06 PM EDT [facility] Outpatient Attender: Pa Mcdonough MD FP 03/15/2020 02:30:04 PM EDT [facility] Outpatient Attender: Pa Mcdonough MD FP 03/13/2020 11:13:01 AM EDT [facility] Health Outpatient Attender: Pa Mcdonough MD FP 03/11/2020 04:14:00 PM EDT [facility] Outpatient Attender: Pa Mcdonough MD FP 03/10/2020 09:52:00 AM EDT [facility] Health Outpatient Attender: Pa Mcdonough MD FP 03/09/2020 12:07:01 PM EDT [facility] Outpatient Attender: Pa Mcdonough MD FP 03/05/2020 03:22:01 PM EDT [facility] Health Outpatient Attender: Pa Mcdonough MD FP 03/04/2020 08:01:01 PM EDT [facility] Health Outpatient Attender: Pa Mcdonough MD FP 03/04/2020 12:27:00 PM EDT [facility] Outpatient Attender: Pa Mcdonough MD FP 03/03/2020 04:19:00 PM EDT [facility] Outpatient Attender: Pa Mcdonough MD FP 03/02/2020 09:32:01 AM EDT [facility] Outpatient Attender: Mallory Powell/Serena/Salvador wu/Saundra 03/01/2020 01:00:00 [facility] Outpatient Attender: Pa Mcdonough MD FP 02/26/2020 08:01:04 PM EDT [facility] Outpatient Attender: Pa Mcdonough MD FP 02/24/2020 09:01:00 AM EDT [facility] Outpatient Attender: Pa Mcdonough MD 02/19/2020 08:01:02 PM EDT [facility] Outpatient Attender: Pa Mcdonough MD 02/19/2020 03:43:00 PM EDT [facility] Outpatient Attender: BUSHRA GIORDANO JAMIR MALDONADO [facility] 02/2020 07:43:02 AM EDT [facility] Outpatient Attender: JAQUELINE GIORDANO RPA-C [facility] 02/17/2020 07:43:01 AM EDT [facility] Outpatient Attender: BUSHRA [facility]ORDANO [facility]/15 10:11:02 AM EDT [facility] Outpatient Attender: BUSHRA GIORDANO [facility] 01/15 10:10:01 AM EDT [facility] Outpatient Attender: JAQUELINE GIORDANO RPA-C [facility] 02/06/2020 02:32:00 PM EDT [facility] Outpatient 02/05/2020 05:31:00 AM EDT [facility] Imaging Outpatient 01/28/2020 05:19:00 AM EDT [facility] Imaging Outpatient Attender: BUSHRA ZENGIN [facility] 03/2020 09:48:00 AM EDT [facility] Outpatient 01/19/2020 04:58:00 AM EDT [facility] Imaging Outpatient Attender: BUSHRA GIORDANO JAMIR JAQUELINE [facility] 10/2019 08:45:00 AM EDT [facility] Outpatient Attender: JAQUELINE GIORDANO RPA-C [facility] 01/13/2020 01:44:01 PM EDT [facility] Outpatient Attender: BUSHRA GIORDANO JAMIR PARSONS [facility] 12/15 09:25:01 AM EDT [facility] Outpatient Attender: BUSHRA GIORDANO [facility] 12/15 09:15:02 AM EDT [facility] Outpatient Attender: Pa Mcdonough MD 01/08/2020 01:37:20 PM EDT [facility] Outpatient Attender: Pa Mcdonough MD 01/06/2020 12:25:00 PM EDT [facility] Outpatient Attender: LENCHO TURK MD 01/05/2020 02:43:01 P M EDT [facility] Outpatient Attender: LENCHO TURK MD 01/05/2020 11:27:01 A [facility] Outpatient Attender: Gabriela Sevilla MD 12/17/2019 12:00:00 AM [facility] Outpatient Attender: LENCHO TURK MD 12/12/2019 01:36:02 P [facility] Outpatient Attender: LENCHO TURK MD 12/12/2019 01:36:00 P [facility] Outpatient Attender: LENCHO TURK MD 12/10/2019 10:46:01 A [facility] Outpatient Attender: LENCHO TURK MD 12/10/2019 09:58:01 A [facility] Outpatient Attender: LENCHO TURK MD 12/09/2019 10:56:01 A [facility] Outpatient Attender: LENCHO TURK MD 12/09/2019 10:56:01 A [facility] Outpatient Attender: LENCHO TURK MD 12/08/2019 04:31:00 P [facility] Outpatient Attender: LENCHO TURK MD 12/06/2019 10:10:00 A [facility] Outpatient Attender: LENCHO TURK MD 12/04/2019 10:09:00 A [facility] Outpatient Attender: LENCHO TURK MD 11/28/2019 09:17:17 A [facility] Outpatient Attender: Evens Joiner Jr 11/26/2019 12:00:00 AM [facility] Outpatient Attender: LENCHO TURK MD 11/19/2019 03:09:00 P [facility] Outpatient Attender: LENCHO TURK MD 11/18/2019 12:16:01 P [facility] Outpatient Attender: LENCHO TURK MD 11/13/2019 11:21:39 A [facility] Extended Individual Psychotherapy - 45 min Attender: Chao Larios [facility] 11/10/2019 03:00:00 AM EST - 11/10/2019 03:00:00 AM EST [facility] Attender: Urbano Larios 11/10/2019 12:00:0 0 AM EST [facility] ([facility]) Attender: Urbano Larios 10/29/2019 12:00:0 0 AM EST [facility] ([facility]) Outpatient Attender: LENCHO BATES 10/28/2019 12:53:00 P M [facility] Extended Individual Psychotherapy - 45 min Attender: Chao Larios [facility] 10/28/2019 01:00:00 AM EST - 10/28/2019 01:00:00 AM EST [facility] Attender: ZEUS BATES 10/24/2019 10:05:00 AM [facility] Outpatient Attender: Mallory Powell/Serena/Salvador wu/Saundra 10/23/2019 10:00:00 AM EST [facility] ([facility] SHERON Nolasco) Outpatient Attender: Juanita BATES 10/17/2019 11: 11:59 AM [facility] Outpatient Attender: Lillian Bedoya [facility] 10/17/2019 02:30:00 AM EST - 10/17/2019 02:30:00 AM EST [facility] ([facility]) Attender: Lillian Bedoya [facility] 10/17/2019 12: 00:00 AM EST [facility] ([facility]) Outpatient Attender: ZEUS BATES 10/16/2019 04:41:01 PM [facility] Outpatient Attender: ZEUS BATES 10/16/2019 04:40:00 PM [facility] Outpatient Attender: ZEUS BATES 10/16/2019 04:39:00 PM [facility] Outpatient Attender: ZEUS BATES 10/16/2019 03:50:01 PM [facility] Outpatient Attender: Juanita BATES 10/16/2019 09: 18:02 AM [facility] Outpatient Attender: ZEUS BATES 10/16/2019 08:21:39 AM [facility] Attender: Urbano Larios 10/16/2019 12:00:0 0 AM EST [facility] ([facility]) Extended Individual Psychotherapy - 45 min Attender: Chao joshua Ric [facility] 10/14/2019 04:00:00 AM EST - 10/14/2019 04:00:00 AM EST [facility] ([facility]) Outpatient Attender: ZEUS BATES 10/13/2019 11:56:01 AM [facility] Outpatient Attender: Juanita COOLEY FP 10/09/2019 03: 05:01 PM [facility] Outpatient Attender: ZEUS SCHULZ FP 10/09/2019 09:10:00 AM [facility] Outpatient Attender: ZEUS BATES 10/06/2019 02:16:01 PM [facility] Outpatient Attender: Gabriela Sevilla MD 10/02/2019 12:00:00 AM [facility] Outpatient Attender: Gabriela Sevilla MD 10/01/2019 12:00:00 AM [facility] Outpatient Attender: Juanita COOLEY 09/29/2019 04: 00:02 PM [facility] Outpatient Attender: ZEUS BATES 09/26/2019 12:48:01 PM [facility] Outpatient Attender: Juanita COOLEY FP 09/26/2019 07: 50:59 AM [facility] Outpatient Attender: ZEUS BATES 09/26/2019 07:49:01 AM [facility] Outpatient Attender: Juanita BATES 09/25/2019 02: 57:01 PM [facility] Outpatient Attender: ZEUS BATES 09/24/2019 04:14:01 PM [facility] Outpatient Attender: ZEUS BATES 09/23/2019 11:41:00 AM [facility] Extended Individual Psychotherapy - 45 min Attender: Chao joshua Ric [facility] 09/23/2019 09:00:00 AM EST - 09/23/2019 09:00:00 AM EST [facility] ([facility]) Attender: Urbano Larios 09/23/2019 12:00:0 0 AM EST [facility] ([facility] Outpatient Attender: ZEUS SCHULZ FP 09/20/2019 12:00:12 AM EST [facility] Outpatient Attender: Juanita COOLEY FP 09/19/2019 08: 01:12 PM EST [facility] Outpatient Attender: ZEUS SCHULZ FP 09/19/2019 08:01:10 PM EST [facility] Outpatient Attender: ZEUS SCHULZ FP 09/19/2019 11:52:01 AM EST [facility] Outpatient Attender: Juanita COOLEY FP 09/19/2019 11: 52:01 AM EST [facility] Outpatient Attender: Juanita COOLEY FP 09/19/2019 11: 45:01 AM EST [facility] Outpatient Attender: Juanita COOLEY FP 09/19/2019 11: 41:01 AM [facility] Outpatient Attender: ZEUS SCHULZ FP 09/18/2019 09:02:00 AM [facility] Outpatient Attender: ZEUS SCHULZ FP 09/18/2019 09:01:01 AM [facility] Outpatient Attender: ZEUS SCHULZ FP 09/18/2019 09:00:00 AM [facility] Outpatient Attender: ZEUS SCHULZ FP 09/15/2019 03:24:01 PM [facility] Outpatient Attender: 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 IIV4 09/23/2020 02:08:00 PM EST completed 0.5 mL [facility] ([facility]) New in 2011. IIV4 09/23/2020 02:08:00 PM EST completed 0.5 mL [facility] ([facility] er) New in 2011. IIV4 09/23/2020 02:08:00 PM EST completed 0.5 mL [facility] ([facility]) Medications Medication Brand Name Start Date Product Form Dose Route Admi nistrative Instructions Pharmacy Instructions Status Indications Reaction Description Data Source(s) Furosemide 40 MG Oral Tablet [Lasix] Lasix 09/27/2020 12:00:00 AM EST ORAL completed [facility] ([facility], ) Nebulizer Kit/Tubing/Mouthpiece 09/22/2020 12:00:00 AM EST active [facility] ([facility], ) Albuterol 0.83 MG/ML Inhalant Solution Albuterol Sulfate 1 11/23/2019 12:00:00 AM EST active [facility] ([facility], ) Nebulizer 09/22/2020 12:00:00 AM EST active [facility] ([facility]) Acetaminophen 325 MG / Oxycodone Hydrochloride 5 MG Or al Tablet [Percocet] Percocet 09/20/2020 12:00:00 AM EST ORAL active [facility] ([facility]) 72 HR Fentanyl 0.025 MG/HR Transdermal Patch [Duragesic] Dur agesic-25 09/20/2020 12:00:00 AM EST TOPICAL active [facility] ([facility], ) linaclotide 0.29 MG Oral Capsule [Linzess] Linzess 03/17/2020 12:00:00 AM EDT ORAL active [facility] ([facility]) Docusate Sodium 100 MG Oral Capsule [Colace] Colace 12/2019 12:00:00 AM EDT ORAL active [facility] ( [facility]) Trulance Trulance 03/01/2020 12:00:00 AM EDT ORAL compl eted [facility] ([facility]) Magnesium Hydroxide 80 MG/ML Oral Suspension Milk Of Magnesi a 03/01/2020 12:00:00 AM EDT completed [facility] ([facility]) quetiapine 400 MG Oral Tablet [Seroquel] Seroquel 10/17/2019 12 :00:00 AM EST 400 mg by mouth completed [id number] Seroquel by mouth [id number] at bedtime 30 400 mg tablet [id number] [facility] [id number] Psychiatric/Mental Health [facility] ([facility]) 24 HR venlafaxine 150 MG Extended Release Oral Capsule [Effe xor] Effexor XR 10/17/2019 12:00:00 AM EST 150 mg completed [id number] Effexor XR 10/17/2019 01/15/2020 every morning 30 150 mg capsule,extended release 24h r [id number] Lillian Bedoya [id number] [facility] ([facility]) Prazosin 1 MG Oral Capsule prazosin 10/17/2019 12:00:00 AM EST 1 mg by mouth completed [id number] prazosin by mouth [id number] 10/17/201912/2019 at bedtime 30 1 mg capsule [id number] Lillian Bedoya [id number] [facility]) quetiapine 400 MG Oral Tablet [Seroquel] Seroquel 10/17/2019 12 :00:00 AM EST 400 mg by mouth completed [id number] Seroquel by mouth [id number] at bedtime 30 400 mg tablet [id number] Lillian gibson [id number] [facility] ([facility]) quetiapine 100 MG Oral Tablet [Seroquel] Seroquel 10/17/2019 12 :00:00 AM EST 100 mg by mouth completed [id number] Seroquel by mouth [id number] 10/17/2019 12/16/2019 at bedtime 30 100 mg tablet [id number] Francis Bedoya [id number] [facility] ([facility]) quetiapine 100 MG Oral Tablet [Seroquel] Seroquel 10/17/2019 12 :00:00 AM EST 100 mg by mouth completed [id number] Seroquel by mouth [id number] 10/17/2019 12/16/2019 at bedtime 30 100 mg tablet 25819 [id number] Francis Bedoya [id number] [facility] ([facility]) 24 HR venlafaxine 150 MG Extended Release Oral Capsule [Effe xor] Effexor XR 10/17/2019 12:00:00 AM EST 150 mg completed [id number] Effexor XR 10/17/2019 01/15/2020 every morning 30 150 mg capsule,extended release 24h r 07412 [id number] Lillian Bedoya [id number] [facility]) Prazosin 1 MG Oral Capsule prazosin 10/17/2019 12:00:00 AM EST 1 mg by mouth completed [id number] prazosin by mouth [id number] 10/17/201912/2019 at bedtime 30 1 mg capsule 35220 [id number] Lillian Bedoya [id number] [facility] ([facility]) 24 HR venlafaxine 150 MG Extended Release Oral Capsule [Effe xor] Effexor XR 10/17/2019 12:00:00 AM EST 150 mg completed [id number] Effexor XR 10/17/2019 01/15/2020 every morning 30 150 mg capsule,extended release 24h r 79947 [id number] Lillian Bedoya [id number] [facility]) lamotrigine 100 MG Oral Tablet lamotrigine 10/13/2019 12:00:00 AM EST 100 mg by mouth completed [id number] lamotrigine by mouth [id number] 04/10/2020 twice a day 30 100 mg tablet 90417 [id number] Rah Gaona [id number] [facility] lamotrigine 100 MG Oral Tablet lamotrigine 10/13/2019 12:00:00 AM EST 100 mg by mouth completed [id number] lamotrigine by mouth [id number] 04/10/2020 twice a day 30 100 mg tablet 68017 [id number] Rah Gaona [id number] [facility] ([facility]) lamotrigine 100 MG Oral Tablet lamotrigine 10/13/2019 12:00:00 AM EST 100 mg by mouth completed [id number] lamotrigine by mouth [id number] 04/10/2020 twice a day 30 100 mg tablet 97927 [id number] Rah Gaona [id number] [facility] ([facility]) lamotrigine 100 MG Oral Tablet lamotrigine 10/13/2019 12:00:00 AM EST 100 mg by mouth completed [id number] lamotrigine by mouth [id number] 04/10/2020 twice a day 30 100 mg tablet 10800 [id number] Rah Gaona [id number] [facility] ([facility]) Clonidine Hydrochloride 0.1 MG Oral Tablet clonidine HCl 08/07/2019 12:00:00 AM EDT 0.1 mg by mouth completed [id number] clonidine HCl by mouth [id number] 08/07/2019 10/17/2019 twice a day 30 0.1 mg tablet 90469 [id number] Lillian Bedoay [id number] [facility]) Clonidine Hydrochloride 0.1 MG Oral Tablet clonidine HCl 08/07/2019 12:00:00 AM EDT 0.1 mg by mouth completed [id number] clonidine HCl by mouth [id number] 08/07/2019 11/05/2019 twice a day 30 0.1 mg tablet 14921 [id number] Lillian Bedoya [id number] [facility]) Clonidine Hydrochloride 0.1 MG Oral Tablet clonidine HCl 08/07/2019 12:00:00 AM EDT 0.1 mg by mouth completed [id number] clonidine HCl by mouth [id number] 08/07/2019 11/05/2019 twice a day 30 0.1 mg tablet 18840 [id number] Lililan Bedoya [id number] [facility]) Trazodone Hydrochloride 300 MG Oral Tablet trazodone 03/27 12:00:00 AM EDT 300 mg by mouth completed [id number] trazodone by mout h [id number] 03/27/2019 09/30/2019 at bedtime 30 300 mg tablet 10382 [id number] Edward Beltran [id number] [facility] ([facility]) Trazodone Hydrochloride 300 MG Oral Tablet trazodone 03/27 12:00:00 AM EDT 300 mg by mouth completed [id number] trazodone by mout h [id number] 03/27/2019 09/30/2019 at bedtime 30 300 mg tablet 20640 [id number] Edward Ruby [id number] [facility] ([facility]) lamotrigine 100 MG Oral Tablet lamotrigine 02/27/2019 12:00:00 AM EDT 100 mg by mouth completed [id number] lamotrigine by mouth [id number] 09/30/2019 twice a day 30 100 mg tablet 32263 [id number] S rocío Ruby [id number] [facility] ([facility]) quetiapine 400 MG Oral Tablet [Seroquel] Seroquel 01/02/2019 12 :00:00 AM EDT 400 mg completed [id number] Seroquel 01/02/2019 0 10/17/2019 at bedtime 400 mg tablet 51410 [id number] Lillian Bedoya [id number] [facility] ([facility]) celecoxib 200 MG Oral Capsule celecoxib 200 mg capsule celec oxib 200 mg capsule completed celecoxib 200 MG Oral Capsule [facility] ([facility]) quetiapine 400 MG Oral Tablet quetiapine 400 mg tablet queti apine 400 mg tablet completed quetiapine 400 MG Oral Tablet [facility] ([facility]) Sucralfate 100 MG/ML Oral Suspension sucralfate 100 mg /mL oral suspension sucralfate 100 mg/mL oral suspension c ompleted sucralfate 100 MG/ML Oral Suspension [facility] ([facility]) varenicline 1 MG Oral Tablet Chantix Continuing Month Box 1 mg tablet Chantix Continuing Month Box 1 mg tablet compl eted varenicline 1 MG Oral Tablet [facility] ([facility]) Prazosin 1 MG Oral Capsule prazosin 1 mg capsule prazosin 1 mg capsule completed prazosin 1 MG Oral Capsul e [facility] ([facility]) Sulfamethoxazole 800 MG / Trimethoprim 1 60 MG Oral Tablet sulfamethoxazole 800 mg-trimethoprim 160 mg tablet sulfamethoxazole 800 mg-trimethoprim 160 mg tablet completed sulfame thoxazole 800 MG / trimethoprim 160 MG Oral Tablet [facility] ([facility]) Sulfamethoxazole 800 MG / Trimethoprim 1 60 MG Oral Tablet sulfamethoxazole 800 mg-trimethoprim 160 mg tablet sulfamethoxazole 800 mg-trimethoprim 160 mg tablet completed sulfame thoxazole 800 MG / trimethoprim 160 MG Oral Tablet [facility] ([facility]) varenicline 1 MG Oral Tablet Chantix Continuing Month Box 1 mg tablet Chantix Continuing Month Box 1 mg tablet compl eted varenicline 1 MG Oral Tablet [facility] ([facility]) Furosemide 40 MG Oral Tablet furosemide 40 mg tablet furosemide 40 mg tablet completed furosemide 40 MG Oral Tablet [facility] ([facility]) Clonazepam 1 MG Oral Tablet clonazepam 1 mg tablet clonazepam 1 mg ta blet completed clonazepam 1 MG Oral Tablet [facility] ([facility]) Sulfamethoxazole 800 MG / Trimethoprim 1 60 MG Oral Tablet sulfamethoxazole 800 mg-trimethoprim 160 mg tablet sulfamethoxazole 800 mg-trimethoprim 160 mg tablet completed sulfame thoxazole 800 MG / trimethoprim 160 MG Oral Tablet [facility] ([facility]) quetiapine 100 MG Oral Tablet quetiapine 100 mg tablet queti apine 100 mg tablet completed quetiapine 100 MG Oral Tablet [facility] ([facility]) Sulfamethoxazole 800 MG / Trimethoprim 1 60 MG Oral Tablet sulfamethoxazole 800 mg-trimethoprim 160 mg tablet sulfamethoxazole 800 mg-trimethoprim 160 mg tablet completed sulfame thoxazole 800 MG / trimethoprim 160 MG Oral Tablet [facility] ([facility]) Sucralfate 100 MG/ML Oral Suspension sucralfate 100 mg /mL oral suspension sucralfate 100 mg/mL oral suspension c ompleted sucralfate 100 MG/ML Oral Suspension [facility] ([facility]) Sucralfate 100 MG/ML Oral Suspension sucralfate 100 mg /mL oral suspension sucralfate 100 mg/mL oral suspension c ompleted sucralfate 100 MG/ML Oral Suspension [facility] ([facility]) Sucralfate 100 MG/ML Oral Suspension sucralfate 100 mg /mL oral suspension sucralfate 100 mg/mL oral suspension c ompleted sucralfate 100 MG/ML Oral Suspension [facility] ([facility]) Sucralfate 100 MG/ML Oral Suspension sucralfate 100 mg /mL oral suspension sucralfate 100 mg/mL oral suspension c ompleted sucralfate 100 MG/ML Oral Suspension [facility] ([facility]) celecoxib 200 MG Oral Capsule celecoxib 200 mg capsule celec oxib 200 mg capsule completed celecoxib 200 MG Oral Capsule [facility] ([facility]) Prazosin 1 MG Oral Capsule prazosin 1 mg capsule prazosin 1 mg capsule completed prazosin 1 MG Oral Capsul e [facility] ([facility]) Prazosin 1 MG Oral Capsule prazosin 1 mg capsule prazosin 1 mg capsule completed prazosin 1 MG Oral Capsul e [facility] ([facility]) quetiapine 100 MG Oral Tablet quetiapine 100 mg tablet queti apine 100 mg tablet completed quetiapine 100 MG Oral Tablet [facility] ([facility]) varenicline 1 MG Oral Tablet Chantix Continuing Month Box 1 mg tablet Chantix Continuing Month Box 1 mg tablet compl eted varenicline 1 MG Oral Tablet [facility] ([facility]) Ketorolac Tromethamine 10 MG Oral Tablet ketorolac 10 mg tablet ketorolac 10 mg tablet completed ketorolac trome thamine 10 MG Oral Tablet [facility] ([facility]) Trulance 3 mg tablet [id number] completed plecanatide 3 MG Oral Tablet [Trulance] [facility] ([facility]) Trulance 3 mg tablet [id number] completed plecanatide 3 MG Oral Tablet [Trulance] [facility] ([facility]) Ketorolac Tromethamine 10 MG Oral Tablet ketorolac 10 mg tablet ketorolac 10 mg tablet completed ketorolac trome thamine 10 MG Oral Tablet [facility] ([facility]) Sulfamethoxazole 800 MG / Trimethoprim 1 60 MG Oral Tablet sulfamethoxazole 800 mg-trimethoprim 160 mg tablet sulfamethoxazole 800 mg-trimethoprim 160 mg tablet completed sulfame thoxazole 800 MG / trimethoprim 160 MG Oral Tablet [facility] ([facility]) Clonazepam 1 MG Oral Tablet clonazepam 1 mg tablet clonazepam 1 mg ta blet completed clonazepam 1 MG Oral Tablet [facility] ([facility]) Sucralfate 100 MG/ML Oral Suspension sucralfate 100 mg /mL oral suspension sucralfate 100 mg/mL oral suspension c ompleted sucralfate 100 MG/ML Oral Suspension [facility] ([facility]) Ketorolac Tromethamine 10 MG Oral Tablet ketorolac 10 mg tablet ketorolac 10 mg tablet completed ketorolac trome thamine 10 MG Oral Tablet [facility] ([facility]) quetiapine 400 MG Oral Tablet quetiapine 400 mg tablet queti apine 400 mg tablet completed quetiapine 400 MG Oral Tablet [facility] ([facility]) Chantix Starting Month Box 0.5 mg (11)-1 mg (42) tablets in dose pack [id number] completed Chantix Starti ng Month Box 0.5 mg (11)-1 mg (42) tablets in dose pack [facility] ([facility]) Clonazepam 1 MG Oral Tablet clonazepam 1 mg tablet clonazepam 1 mg ta blet completed clonazepam 1 MG Oral Tablet [facility] ([facility]) Trulance 3 mg tablet [id number] completed plecanatide 3 MG Oral Tablet [Trulance] [facility] ([facility]) quetiapine 400 MG Oral Tablet quetiapine 400 mg tablet queti apine 400 mg tablet completed quetiapine 400 MG Oral Tablet [facility] ([facility]) Prazosin 1 MG Oral Capsule prazosin 1 mg capsule prazosin 1 mg capsule completed prazosin 1 MG Oral Capsul e [facility] ([facility]) quetiapine 100 MG Oral Tablet quetiapine 100 mg tablet queti apine 100 mg tablet completed quetiapine 100 MG Oral Tablet [facility] ([facility]) Sucralfate 100 MG/ML Oral Suspension sucralfate 100 mg /mL oral suspension sucralfate 100 mg/mL oral suspension c ompleted sucralfate 100 MG/ML Oral Suspension [facility] ([facility]) quetiapine 400 MG Oral Tablet quetiapine 400 mg tablet queti apine 400 mg tablet completed quetiapine 400 MG Oral Tablet [facility] ([facility]) quetiapine 100 MG Oral Tablet quetiapine 100 mg tablet queti apine 100 mg tablet completed quetiapine 100 MG Oral Tablet [facility] ([facility]) Trulance 3 mg tablet [id number] completed plecanatide 3 MG Oral Tablet [Trulance] [facility] ([facility]) quetiapine 400 MG Oral Tablet quetiapine 400 mg tablet queti apine 400 mg tablet completed quetiapine 400 MG Oral Tablet [facility] ([facility]) Ketorolac Tromethamine 10 MG Oral Tablet ketorolac 10 mg tablet ketorolac 10 mg tablet completed ketorolac trome thamine 10 MG Oral Tablet [facility] ([facility]) Clonazepam 1 MG Oral Tablet clonazepam 1 mg tablet clonazepam 1 mg ta blet completed clonazepam 1 MG Oral Tablet [facility] ([facility]) Prazosin 1 MG Oral Capsule prazosin 1 mg capsule prazosin 1 mg capsule completed prazosin 1 MG Oral Capsul e [facility]) Trulance 3 mg tablet [id number] completed plecanatide 3 MG Oral Tablet [Trulance] [facility] ([facility]) Trulance 3 mg tablet [id number] completed plecanatide 3 MG Oral Tablet [Trulance] [facility] ([facility]) Chantix Starting Month Box 0.5 mg (11)-1 mg (42) tablets in dose pack [id number] completed Chantix Starti ng Month Box 0.5 mg (11)-1 mg (42) tablets in dose pack [facility] ([facility]) Trulance 3 mg tablet [id number] completed plecanatide 3 MG Oral Tablet [Trulance] [facility] ([facility]) Chantix Starting Month Box 0.5 mg (11)-1 mg (42) tablets in dose pack [id number] completed Chantix Starti ng Month Box 0.5 mg (11)-1 mg (42) tablets in dose pack [facility] ([facility]) celecoxib 200 MG Oral Capsule celecoxib 200 mg capsule celec oxib 200 mg capsule completed celecoxib 200 MG Oral Capsule [facility] ([facility]) quetiapine 100 MG Oral Tablet quetiapine 100 mg tablet queti apine 100 mg tablet completed quetiapine 100 MG Oral Tablet [facility] ([facility]) Clonazepam 1 MG Oral Tablet clonazepam 1 mg tablet clonazepam 1 mg ta blet completed clonazepam 1 MG Oral Tablet [facility] ([facility]) Ketorolac Tromethamine 10 MG Oral Tablet ketorolac 10 mg tablet ketorolac 10 mg tablet completed ketorolac trome thamine 10 MG Oral Tablet [facility] ([facility]) quetiapine 100 MG Oral Tablet quetiapine 100 mg tablet queti apine 100 mg tablet completed quetiapine 100 MG Oral Tablet [facility] ([facility]) celecoxib 200 MG Oral Capsule celecoxib 200 mg capsule celec oxib 200 mg capsule completed celecoxib 200 MG Oral Capsule [facility] ([facility]) quetiapine 100 MG Oral Tablet quetiapine 100 mg tablet queti apine 100 mg tablet completed quetiapine 100 MG Oral Tablet [facility] ([facility]) Prazosin 1 MG Oral Capsule prazosin 1 mg capsule prazosin 1 mg capsule completed prazosin 1 MG Oral Capsul e [facility] ([facility]) quetiapine 400 MG Oral Tablet quetiapine 400 mg tablet queti apine 400 mg tablet completed quetiapine 400 MG Oral Tablet [facility] ([facility]) celecoxib 200 MG Oral Capsule celecoxib 200 mg capsule celec oxib 200 mg capsule completed celecoxib 200 MG Oral Capsule [facility] ([facility]) celecoxib 200 MG Oral Capsule celecoxib 200 mg capsule celec oxib 200 mg capsule completed celecoxib 200 MG Oral Capsule [facility] ([facility]) Sulfamethoxazole 800 MG / Trimethoprim 1 60 MG Oral Tablet sulfamethoxazole 800 mg-trimethoprim 160 mg tablet sulfamethoxazole 800 mg-trimethoprim 160 mg tablet completed sulfame thoxazole 800 MG / trimethoprim 160 MG Oral Tablet [facility]) Clonazepam 1 MG Oral Tablet clonazepam 1 mg tablet clonazepam 1 mg ta blet completed clonazepam 1 MG Oral Tablet [facility] ([facility]) Clonazepam 1 MG Oral Tablet clonazepam 1 mg tablet clonazepam 1 mg ta blet [facility] MG Oral Capsule celecoxib 200 mg capsule celec oxib 200 mg capsule completed celecoxib 200 MG Oral Capsule [facility] ([facility]) quetiapine 400 MG Oral Tablet quetiapine 400 mg tablet queti apine 400 mg tablet completed quetiapine 400 MG Oral Tablet [facility]) Prazosin 1 MG Oral Capsule prazosin 1 mg capsule prazosin 1 mg capsule completed prazosin 1 MG Oral Capsul e [facility] ([facility]) Chantix Starting Month Box 0.5 mg (11)-1 mg (42) tablets in dose pack [id number] completed Chantix Starti ng Month Box 0.5 mg (11)-1 mg (42) tablets in dose pack [facility] ([facility]) Sulfamethoxazole 800 MG / Trimethoprim 1 60 MG Oral Tablet sulfamethoxazole 800 mg-trimethoprim 160 mg tablet sulfamethoxazole 800 mg-trimethoprim 160 mg tablet completed sulfame thoxazole 800 MG / trimethoprim 160 MG Oral Tablet [facility] ([facility]) Ketorolac Tromethamine 10 MG Oral Tablet ketorolac 10 mg tablet ketorolac 10 mg tablet completed ketorolac trome thamine 10 MG Oral Tablet [facility] ([facility]) Ketorolac Tromethamine 10 MG Oral Tablet ketorolac 10 mg tablet ketorolac 10 mg tablet completed ketorolac trome thamine 10 MG Oral Tablet [facility] ([facility]) varenicline 1 MG Oral Tablet Chantix Continuing Month Box 1 mg tablet Chantix Continuing Month Box 1 mg tablet compl eted varenicline 1 MG Oral Tablet [facility] ([facility]) Insurance Providers Payer name Policy type / Coverage type Policy ID Covered constitution party ID Covered constitution party's relationship to gilbert Policy [place] Plan Information AETNA MEDICARE [id number] SP [id number] AETNA MEDICARE O [id number] S MEBTX [id number] AETNA MEDICARE COMPLETE G [id number] Self [id number] MEDICARE [id number] SP [id number] HUMANA GOLD [id number] SP [id number] MEDICARE [id number] SP [id number] A Aetna P [id number] S [id number] MEDICARE C [id number] S [id number] MEDICARE [id number] SP [id number] Sliding Fee Scale S [id number] S [id number] Sliding Fee Scale S [id number] S [id number] MEDICAID [id number] HUMANA GOLD [id number] SP [id number] AETNA MEDICARE [id number] SP [id number] Humana Health Plans P [id number] S [id number] MEDICARE [id number] SP [id number] MEDICARE [id number] SP [id number] HUMANA GOLD [id number] SP [id number] HUMANA MEDICARE ADVANTAGE G [id number] Self [id number] Medicare S [id number] S [id number] HUMANA GOLD [id number] SP [id number] Sliding Fee Scale S [id number] S [id number] Medicare P [id number] S [id number] Medicare Part B Medicare Primary [id number] Self [id number] MEDICARE MCA [id number] S [id number] MEDICARE MCA [id number] S [id number] MEDICAID [id number] SP [id number] Medicare P [id number] S [id number] A [place] MED[place] [id number] S [id number] [place]ICARE - [place] [id number] S [id number] [facility]BS [facility] [id number] S [id number] Sliding Fee Scale O [id number] S [id number] Medicare Part B Medicare Primary [id number] Self [id number] ANSI-Medicare Part B [id number] ANSI-Medicare Part B [id number] MEDICARE A [id number] Self [id number] [place] Primary [id number] Self [id number] ANSI-Medicare Part B [id number] HUMANA GOLD [id number] SP [id number] MEDICARE [id number] SP [id number] A [place] Primary [id number] Self [id number] [place] Primary [id number] Self [id number] Medicare P [id number] S [id number] A ANSI-Medicare Part B [id number] Medicaid S UNAVAILABLE S UNAVAILA BLE Medicaid [place] Medicaid [id number] S elf [id number] Medicare [facility] Medicare Primary [id number] Self [id number] MEDICARE A [id number] Self [id number] MEDICARE A [id number] Self [id number] A HUMANA PPO O [id number] O [id number] MEDICARE C [id number] S [id number] A HUMANA PPO [id number] SP [id number] HUMANA GOLD [id number] SP [id number] HUMANA GOLD [id number] SP [id number] HUMANA GOLD [id number] SP [id number] HUMANA GOLD [id number] SP [id number] HUMANA GOLD [id number] SP [id number] [facility] [id number] SP [id number] BCBS [place] HMO [id number] SP [id number] HMO BLUE [id number] SP [id number] [place] INS NO FAULT [id number] SP [id number] MEDICAID [id number] SP [id number] MEDICAID [id number] SP [id number] MEDICARE [id number] SP [id number] A [employer] P [id number] S [id number] [employer] Plans P [id number] S [id number] [employer] ([employer]) [id number] 18 [id number] [employer] Plans P [id number] S [id number] Medicare P [id number] S [id number] A Medicare S [id number] S [id number] A HUMANA GOLD O [id number] O [id number] Medicare Part B Medicare Primary Self Humana Gold Choice Commercial Self Humana Medicare F [id number] SELF [id number] HUMANA PPO [id number] SP [id number] MEDICARE [id number] SP [id number] A Medicare C [id number] SELF [id number] A Medicaid [place] Medigap Part B Self Humana Gold/Medicare Commercial Self [employer] [place] [employer] O [id number] S [id number] Humana Medicare F [id number] SELF [id number] HUMANA PPO [id number] SP [id number] Medicare Medicare Primary Self MEDICAID RICK[place] [id number] S [id number] MEDICARE [id number] SP [id number] MEDICARE [id number] SP [id number] Medicare Natl Gov't Servi Medicare Primary Self SELF PAY UNAVAILABLE SP UNAVAILA BLE MEDICARE OUTPATIENT M [id number] S [id number] MEDICARE - [place] MCR [id number] S [id number] BLUE CROSS STALEY PLAN [id number] SP [id number] BLUE CHOICE OPTN FHP O [id number] S [id number] [employer] INS NO FAULT [id number] SP [id number] Problems, Conditions, and Diagnoses Code Display Name Description Problem Type Effective Dates Data Source(s) 418112644 Adenocarcinoma of lung Adenocarcinoma of Lung Problem 09/23/2020 12:00:00 AM EST [facility] ([facility] [employer] [facility]) [id number] Adenocarcinoma of lung Adenocarcinoma of Lung Problem 09/23/2020 12:00:00 AM EST [facility] ([facility] [employer] [facility]) [id number] Adenocarcinoma of lung Adenocarcinoma of Lung Problem 09/23/2020 12:00:00 AM EST [facility] ([facility] [employer] [facility]) [id number] Adenocarcinoma of lung Adenocarcinoma of Lung Problem 09/23/2020 12:00:00 AM EST [facility] ([facility]) C44.82 Squamous cell carcinoma of overlapping s ites of skin Squamous cell carcinoma of other specified sites of skin 07/22/2020 03:38: 40 PM EDT [facility] [id number] Acute cystitis without hematuria Acute cystitis withou t hematuria 04/02/2020 09:51:46 AM EDT [facility] 30475088 Acute cystitis Acute Cystitis Problem 04/02/2020 12:00: 00 AM EDT [facility] ([facility]) 74858037 Acute cystitis Acute Cystitis Problem 04/02/2020 12:00: 00 AM EDT [facility] ([facility]) 64270184 Acute cystitis Acute Cystitis Problem 04/02/2020 12:00: 00 AM EDT [facility] ([facility]) 55593203 Acute cystitis Acute Cystitis Problem 04/02/2020 12:00: 00 AM EDT [facility] ([facility]) 95713440 Acute cystitis Acute Cystitis Problem 04/02/2020 12:00: 00 AM EDT [facility] ([facility]) 36822310 Acute cystitis Acute Cystitis Problem 04/02/2020 12:00: 00 AM EDT [facility] ([facility] [facility]) [id number] Acute cystitis Acute Cystitis Problem 04/02/2020 12:00: 00 AM EDT PERRY ([facility]) [id number] Acute cystitis Acute Cystitis Problem 04/02/2020 12:00: 00 AM EDT PERRY ([facility]) 63708303 Acute cystitis Acute Cystitis Problem 04/02/2020 12:00: 00 AM EDT PERRY ([facility]) 24929911 Acute cystitis Acute Cystitis Problem 04/02/2020 12:00: 00 AM EDT PERRY ([facility]) 68295787 Acute cystitis Acute Cystitis Problem 04/02/2020 12:00: 00 AM EDT PERRY ([facility]) 793.11 Solitary nodule of lung Solitary nodule of lung 03/15/2020 02:29:54 PM EDT [facility] [id number] Endeavor lesion of lung Endeavor Lesion of Lung Problem 0 03/15/2020 12:00:00 AM EDT [facility] ([facility]) [id number] Endeavor lesion of lung Endeavor Lesion of Lung Problem 0 03/15/2020 12:00:00 AM EDT [facility] ([facility]) [id number] Endeavor lesion of lung Endeavor Lesion of Lung Problem 0 03/15/2020 12:00:00 AM EDT [facility] ([facility]) [id number] Endeavor lesion of lung Endeavor Lesion of Lung Problem 0 03/15/2020 12:00:00 AM EDT [facility] ([facility]) [id number] Endeavor lesion of lung Endeavor Lesion of Lung Problem 0 03/15/2020 12:00:00 AM EDT [facility] ([facility]) [id number] Endeavor lesion of lung Endeavor Lesion of Lung Problem 0 03/15/2020 12:00:00 AM EDT [facility] ([facility]) [id number] Endeavor lesion of lung Endeavor Lesion of Lung Problem 0 03/15/2020 12:00:00 AM EDT [facility] ([facility]) [id number] Endeavor lesion of lung Endeavor Lesion of Lung Problem 0 03/15/2020 12:00:00 AM EDT [facility] ([facility]) [id number] Endeavor lesion of lung Endeavor Lesion of Lung Problem 0 03/15/2020 12:00:00 AM EDT [facility] ([facility]) [id number] Endeavor lesion of lung Endeavor Lesion of Lung Problem 0 03/15/2020 12:00:00 AM EDT [facility] ([facility]) [id number] Endeavor lesion of lung Endeavor Lesion of Lung Problem 0 03/15/2020 12:00:00 AM EDT [facility] ([facility]) G44.229 Chronic tension-type headache, not intra ctable Chronic tension-type headache 02/06/2020 02:30:13 PM EDT [facility] [id number] Chronic tension-type headache Chronic Tension-type Hea dache Problem 02/06/2020 12:00:00 AM EDT [facility] ([facility]) 535757698 Chronic tension-type headache Chronic Tension-type Hea dache Problem 02/06/2020 12:00:00 AM EDT [facility] ([facility]) 926369356 Chronic tension-type headache Chronic Tension-type Hea dache Problem 02/06/2020 12:00:00 AM EDT [facility] ([facility]) [id number] Chronic tension-type headache Chronic Tension-type Hea dache Problem 02/06/2020 12:00:00 AM EDT [facility] ([facility]) 088969637 Chronic tension-type headache Chronic Tension-type Hea dache Problem 02/06/2020 12:00:00 AM EDT [facility] ([facility]) 386532880 Chronic tension-type headache Chronic Tension-type Hea dache Problem 02/06/2020 12:00:00 AM EDT [facility] ([facility]) 593745174 Chronic tension-type headache Chronic Tension-type Hea dache Problem 02/06/2020 12:00:00 AM EDT [facility] ([facility]) 715849269 Chronic tension-type headache Chronic Tension-type Hea dache Problem 02/06/2020 12:00:00 AM EDT [facility] ([facility]) 561195128 Chronic tension-type headache Chronic Tension-type Hea dache Problem 02/06/2020 12:00:00 AM EDT [facility] ([facility]) 409128394 Chronic tension-type headache Chronic Tension-type Hea dache Problem 02/06/2020 12:00:00 AM EDT [facility] ([facility]) [id number] Chronic tension-type headache Chronic Tension-type Hea dache Problem 02/06/2020 12:00:00 AM EDT [facility] ([facility]) 782.0 Numbness of lower limb Numbness of lower limb 01/13/2020 01:42:40 PM EDT [facility] 31608716 Chest pain, unspecified Chest pain, unspecified 01/13/2020 01:42:40 PM EDT [facility] [id number] Chest pain Chest Pain Problem 01/13/2020 12:00:00 AM ED T [facility] ([facility]) 203377854 Anesthesia of skin Anesthesia of Skin Problem 12:00:00 AM EDT [facility] ([facility]) 48298498 Chest pain Chest Pain Problem 01/13/2020 12:00:00 AM ED T [facility] ([facility]) [id number] Anesthesia of skin Anesthesia of Skin Problem 12:00:00 AM EDT [facility] ([facility]) 87037238 Chest pain Chest Pain Problem 01/13/2020 12:00:00 AM ED T [facility] ([facility]) [id number] Anesthesia of skin Anesthesia of Skin Problem 12:00:00 AM EDT [facility] ([facility]) 28111825 Chest pain Chest Pain Problem 01/13/2020 12:00:00 AM ED T [facility] ([facility]) 656982003 Anesthesia of skin Anesthesia of Skin Problem 12:00:00 AM EDT [facility] ([facility]) 85207905 Chest pain Chest Pain Problem 01/13/2020 12:00:00 AM ED T [place] ([facility]) [id number] Anesthesia of skin Anesthesia of Skin Problem 12:00:00 AM EDT [facility] ([facility]) [id number] Chest pain Chest Pain Problem 01/13/2020 12:00:00 AM ED T [facility] ([facility]) [id number] Anesthesia of skin Anesthesia of Skin Problem 12:00:00 AM EDT [facility] ([facility]) 94324771 Chest pain Chest Pain Problem 01/13/2020 12:00:00 AM ED T [facility] ([facility]) [id number] Anesthesia of skin Anesthesia of Skin Problem 12:00:00 AM EDT [facility] ([facility]) 73187773 Chest pain Chest Pain Problem 01/13/2020 12:00:00 AM ED T [facility] ([facility]) [id number] Anesthesia of skin Anesthesia of Skin Problem 12:00:00 AM EDT [facility] ([facility]) 45449116 Chest pain Chest Pain Problem 01/13/2020 12:00:00 AM ED T [facility] ([facility]) 404166662 Anesthesia of skin Anesthesia of Skin Problem 12:00:00 AM EDT [facility] ([facility]) 37406492 Chest pain Chest Pain Problem 01/13/2020 12:00:00 AM ED T [place] ([facility]) 729612389 Anesthesia of skin Anesthesia of Skin Problem 12:00:00 AM EDT [facility] ([facility]) 08724015 Chest pain Chest Pain Problem 01/13/2020 12:00:00 AM ED T [facility] ([facility]) 588053785 Anesthesia of skin Anesthesia of Skin Problem 12:00:00 AM EDT [facility] ([facility]) F31.9 Bipolar disorder, unspecified Bipolar Disorder 12/12/2019 01:35:58 PM EST [facility] 34764154 Bipolar II disorder Bipolar II Disorder Problem 0 12/08/2019 12:00:00 AM EST [facility] ([facility]) 11158198 Bipolar II disorder Bipolar II Disorder Problem 0 12/08/2019 12:00:00 AM EST [facility] ([facility]) 87910132 Bipolar II disorder Bipolar II Disorder Problem 0 12/08/2019 12:00:00 AM EST [facility] ([facility]) 72349278 Bipolar II disorder Bipolar II Disorder Problem 0 12/08/2019 12:00:00 AM EST [facility] ([facility]) 20544280 Bipolar II disorder Bipolar II Disorder Problem 0 12/08/2019 12:00:00 AM EST [facility] ([facility]) 70010987 Bipolar II disorder Bipolar II Disorder Problem 0 12/08/2019 12:00:00 AM EST [facility] ([facility]) 86228456 Bipolar II disorder Bipolar II Disorder Problem 0 12/08/2019 12:00:00 AM EST [facility] ([facility]) [id number] Bipolar II disorder Bipolar II Disorder Problem 0 12/08/2019 12:00:00 AM EST [facility] ([facility]) 61091420 Bipolar II disorder Bipolar II Disorder Problem 0 12/08/2019 12:00:00 AM EST [facility] ([facility]) 75984779 Bipolar II disorder Bipolar II Disorder Problem 0 12/08/2019 12:00:00 AM EST [facility] ([facility]) 40409425 Bipolar II disorder Bipolar II Disorder Problem 0 12/08/2019 12:00:00 AM EST [facility] ([facility]) F17.200 Nicotine dependence, unspecified, uncomp licated Tobacco Use Disorder, Moderate Condition 11/10/2019 12:00:00 AM EST [facility] ( [facility]) F43.12 Post-traumatic stress disorder, chronic Post-traumatic stress disorder, chronic Condition 11/10/2019 12:00:00 AM EST [facility] ([facility]) F60.3 Borderline personality disorder Borderline Personality Disorder Condition 11/10/2019 12:00:00 AM EST [facility] ([facility]) F31.9 Bipolar disorder, unspecified Unspecified Bipola r and Related Disorder Condition 11/10/2019 12:00:00 AM EST [facility] ([facility]) 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) Spirometry 07/23/2020 12:00:00 AM EDT M [facility] ([facility]) Bronchospasm Evaluation 07/23/2020 12:00:00 AM EDT [facility] ([facility], ) Maximum Breathing Capacity, Maximal Voluntary Ventilation 07/23/2020 12:00:00 AM EDT [facility] ([facility]) Plethysmography Determination Lung Volumes & Per Airway Resi st 07/23/2020 12:00:00 AM EDT [facility] ([facility]) DIFFUSING CAPACITY 07/23/2020 12:00:00 AM EDT [facility] ([facility]) Endoscopy Upper GI Biopsy 04/12/2020 12:00:00 AM EDT [facility] ([facility], ) Dilate Esophagus Unguided Sound Or Bougie 04/12/2020 1 2:00:00 AM EDT [facility] ([facility], ) Extended Individual Psychotherapy - 45 min 11/10/2019 12:00:00 AM EST - 11/10/2019 12:00:00 AM EST [facility] ([facility]) Extended Individual Psychotherapy - 45 min 0 12:00:00 AM EST [facility] ([facility]) Extended Individual Psychotherapy - 45 min 10/29/2019 12:00:00 AM EST - 10/29/2019 12:00:00 AM EST [facility] ([facility]) Extended Individual Psychotherapy - 45 min 0 12:00:00 AM EST [facility] ([facility]) OFFICE OUTPATIENT VISIT 15 MINUTES 10/17 12:00:00 AM EST - 10/17/2019 12:00:00 AM EST [facility] ([facility]) Psychotherapy ADD ON - 30 Minutes 10/17/2019 12:00:00 AM EST [facility] ([facility]) OFFICE OUTPATIENT VISIT 15 MINUTES 10/17/2019 12:00:00 AM EST [facility] ([facility]) Extended Individual Psychotherapy - 45 min 10/16/2019 12:00:00 AM EST - 10/16/2019 12:00:00 AM EST [facility] ([facility]) Extended Individual Psychotherapy - 45 min 9 12:00:00 AM EST [facility] ([facility]) Extended Individual Psychotherapy - 45 min 09/23/2019 12:00:00 AM EST - 09/23/2019 12:00:00 AM EST [facility] ([facility]) Extended Individual Psychotherapy - 45 min 9 12:00:00 AM EST [facility] ([facility]) Results ID Date Data Source [id number] 09/20/2020 04:38:00 AM EST [facility] ([facility]) Name Value Range Interpretation Code Description Data Ariane rce(s) Supporting Document(s) glucose, fasting 103 mg/dL 70-100 Above high normal Glucose, Fas ting [facility] ([facility]) blood urea nitrogen 11 mg/dL 7-18 normal Blood Urea Nitro gen [facility] ([facility]) creatinine for GFR 0.69 mg/dL 0.55-1.30 normal Creatinine for GF R PERRY ([facility]) glomerular filtration rate > 60.0 >51 normal Glomerula r Filtration Rate [facility] ([facility]) sodium level 138 mEq/L 136-145 normal Sodium Level [facility] ([facility] potassium serum 4.4 mEq/L 3.5-5.1 normal Potassium Serum ATHE NA ([facility]) chloride level 109 mEq/L 98-107 Above high normal Chloride Level PERRY ([facility]) carbon dioxide level 24 mEq/L 21-32 normal Carbon Dioxide Level [facility] ([facility]) anion gap 5 mEq/L 8-16 Below low normal Anion Gap PERRY ( [facility]) calcium level 8.6 mg/dL 8.5-10.1 normal Calcium Level PERRY ( [facility]) ID Date Data Source [id number] 09/20/2020 04:38:00 AM EST [facility] ([facility]) Name Value Range Interpretation Code Description Data Ariane rce(s) Supporting Document(s) white blood count 8.2 10 4.0-10.0 normal White Blood Count [facility] ([facility]) red blood count 3.22 10 4.00-5.40 Below low normal Red Blood Coun t PERRY ([facility]) hematocrit 31.7 % 36.0-47.0 Below low normal Hematocrit [facility] ( [facility]) hemoglobin 10.2 g/dL 12.0-15.5 Below low normal Hemoglobin P[facility] ( [facility]) mean corpuscular volume 98.4 fL 80.0-96.0 Above high normal Mean Corpuscular Volume PERR[facility] ([facility]) mean corpuscular hemoglobin 31.7 pg 27.0-33.0 normal Mean Corpuscular Hemoglobin PERR[facility] ([facility]) mean corpuscular HGB conc 32.2 g/dL 32.0-36.5 normal Mean Corpu scular HGB Conc [facility] ([facility]) red cell distribution width 12.8 % 11.5-14.5 normal Red Cell Distribution Width PERRY ([facility]) platelet count, automated 253 10 150-450 normal Platelet C ount, Automated [facility] ([facility]) neutrophils % 73.6 % 36.0-66.0 Above high normal Neutrophils % A THENA ([facility]) lymph % 8.7 % 24.0-44.0 Below low normal Lymph % PERRY ( [facility]) eos % 5.6 % 0.0-3.0 Above high normal Eos % [facility] ([facility]) mono % 10.8 % 0.0-5.0 Above high normal [place] % P[facility] ([facility]) baso % 0.6 % 0.0-1.0 normal Baso % [facility] ([facility]) immature granulocyte % 0.7 % 0-3.0 normal Immature Gran ulocyte % PERR[facility] ([facility]) nucleated red blood cell % 0.0 % 0-0 normal Nucleated Red Blood Cell % PERR[facility] ([facility]) neutrophils # 6.0 10 1.5-8.5 normal Neutrophils # PERRY ( [facility]) lymph # 0.7 10 1.5-5.0 Below low normal Lymph # [facility] ( [facility]) mono # 0.9 10 0.0-0.8 Above high normal [place] # [facility] ([facility]) eos # 0.5 10 0.0-0.5 normal Eos # [facility] ([facility]) baso # 0.1 10 0.0-0.2 normal Baso # [facility] ([facility]) ID Date Data Source [id number] 09/20/2020 04:38:00 AM EST [facility] ([facility]) Name Value Range Interpretation Code Description Data Ariane rce(s) Supporting Document(s) glucose, fasting 103 mg/dL 70-100 Above high normal Glucose, Fas ting [facility] ([facility]) blood urea nitrogen 11 mg/dL 7-18 normal Blood Urea Nitro gen PERR[facility] ([facility]) creatinine for GFR 0.69 mg/dL 0.55-1.30 normal Creatinine for GF R SAVAEG ([facility]) glomerular filtration rate > 60.0 >51 normal Glomerula r Filtration Rate [facility] ([facility]) sodium level 138 mEq/L 136-145 normal Sodium Level [facility] ([facility]) potassium serum 4.4 mEq/L 3.5-5.1 normal Potassium Serum ATHE NA ([facility]) chloride level 109 mEq/L 98-107 Above high normal Chloride Level PERR[facility] ([facility]) carbon dioxide level 24 mEq/L 21-32 normal Carbon Dioxide Level [facility] ([facility]) anion gap 5 mEq/L 8-16 Below low normal Anion Gap PERR[facility] ( [facility]) calcium level 8.6 mg/dL 8.5-10.1 normal Calcium Level PERR[facility] ( [facility]) ID Date Data Source [id number] 09/20/2020 04:38:00 AM EST [facility] ([facility]) Name Value Range Interpretation Code Description Data Ariane rce(s) Supporting Document(s) white blood count 8.2 10 4.0-10.0 normal White Blood Count [facility] ([facility]) red blood count 3.22 10 4.00-5.40 Below low normal Red Blood Coun t [facility] ([facility]) hemoglobin 10.2 g/dL 12.0-15.5 Below low normal Hemoglobin [facility] ( [facility]) hematocrit 31.7 % 36.0-47.0 Below low normal Hematocrit [facility] ( [facility]) mean corpuscular volume 98.4 fL 80.0-96.0 Above high normal Mean Corpuscular Volume [facility] ([facility]) mean corpuscular hemoglobin 31.7 pg 27.0-33.0 normal Mean Corpuscular Hemoglobin [facility] ([facility]) mean corpuscular HGB conc 32.2 g/dL 32.0-36.5 normal Mean Corpu scular HGB Conc [facility] ([facility]) red cell distribution width 12.8 % 11.5-14.5 normal Red Cell Distribution Width [facility] ([facility]) platelet count, automated 253 10 150-450 normal Platelet C ount, Automated [facility] ([facility]) neutrophils % 73.6 % 36.0-66.0 Above high normal Neutrophils % A THENA ([facility]) lymph % 8.7 % 24.0-44.0 Below low normal Lymph % [facility] ( [facility]) eos % 5.6 % 0.0-3.0 Above high normal Eos % [facility] ([facility]) mono % 10.8 % 0.0-5.0 Above high normal [place] % P[facility] ([facility]) baso % 0.6 % 0.0-1.0 normal Baso % [facility] ([facility]) immature granulocyte % 0.7 % 0-3.0 normal Immature Gran ulocyte % [facility] ([facility]) nucleated red blood cell % 0.0 % 0-0 normal Nucleated Red Blood Cell % [facility] ([facility]) lymph # 0.7 10 1.5-5.0 Below low normal Lymph # [facility] ( [facility]) neutrophils # 6.0 10 1.5-8.5 normal Neutrophils # [facility] ( [facility]) mono # 0.9 10 0.0-0.8 Above high normal [place] # [facility] ([facility]) baso # 0.1 10 0.0-0.2 normal Baso # [facility] ([facility]) eos # 0.5 10 0.0-0.5 normal Eos # [facility] ([facility]) ID Date Data Source [id number] 09/20/2020 04:38:00 AM EST [facility] ([facility]) Name Value Range Interpretation Code Description Data Ariane rce(s) Supporting Document(s) glucose, fasting 103 mg/dL 70-100 Above high normal Glucose, Fas ting PERR[facility] ([facility]) blood urea nitrogen 11 mg/dL 7-18 normal Blood Urea Nitro gen PERRY ([facility]) creatinine for GFR 0.69 mg/dL 0.55-1.30 normal Creatinine for GF R [facility] ([facility]) glomerular filtration rate > 60.0 >51 normal Glomerula r Filtration Rate [facility] ([facility]) sodium level 138 mEq/L 136-145 normal Sodium Level [facility] ([facility]) potassium serum 4.4 mEq/L 3.5-5.1 normal Potassium Serum ATHE NA ([facility]) chloride level 109 mEq/L 98-107 Above high normal Chloride Level PERR[facility] ([facility]) carbon dioxide level 24 mEq/L 21-32 normal Carbon Dioxide Level [facility] ([facility]) anion gap 5 mEq/L 8-16 Below low normal Anion Gap PERRY ( [facility]) calcium level 8.6 mg/dL 8.5-10.1 normal Calcium Level PERRY ( [facility]) ID Date Data Source [id number] 09/20/2020 04:38:00 AM EST [facility] ([facility]) Name Value Range Interpretation Code Description Data Ariane rce(s) Supporting Document(s) white blood count 8.2 10 4.0-10.0 normal White Blood Count [facility] ([facility]) red blood count 3.22 10 4.00-5.40 Below low normal Red Blood Coun t PERR[facility] ([facility]) hemoglobin 10.2 g/dL 12.0-15.5 Below low normal Hemoglobin P[facility] ( [facility]) hematocrit 31.7 % 36.0-47.0 Below low normal Hematocrit [facility] ( [facility]) mean corpuscular volume 98.4 fL 80.0-96.0 Above high normal Mean Corpuscular Volume [facility] ([facility]) mean corpuscular hemoglobin 31.7 pg 27.0-33.0 normal Mean Corpuscular Hemoglobin [facility] ([facility]) mean corpuscular HGB conc 32.2 g/dL 32.0-36.5 normal Mean Corpu scular HGB Conc [facility] ([facility]) red cell distribution width 12.8 % 11.5-14.5 normal Red Cell Distribution Width [facility] ([facility]) platelet count, automated 253 10 150-450 normal Platelet C ount, Automated [facility] ([facility]) neutrophils % 73.6 % 36.0-66.0 Above high normal Neutrophils % A THENA ([facility]) lymph % 8.7 % 24.0-44.0 Below low normal Lymph % [facility] ( [facility]) mono % 10.8 % 0.0-5.0 Above high normal [place] % [facility] ([facility]) eos % 5.6 % 0.0-3.0 Above high normal Eos % [facility] ([facility]) baso % 0.6 % 0.0-1.0 normal Baso % [facility] ([facility]) immature granulocyte % 0.7 % 0-3.0 normal Immature Gran ulocyte % P[facility] ([facility]) nucleated red blood cell % 0.0 % 0-0 normal Nucleated Red Blood Cell % [facility] ([facility]) neutrophils # 6.0 10 1.5-8.5 normal Neutrophils # [facility] ( [facility]) lymph # 0.7 10 1.5-5.0 Below low normal Lymph # [facility] ( [facility]) mono # 0.9 10 0.0-0.8 Above high normal [place] # [facility] ([facility]) eos # 0.5 10 0.0-0.5 normal Eos # [facility] ([facility]) baso # 0.1 10 0.0-0.2 normal Baso # [facility] ([facility]) ID Date Data Source [id number] 09/20/2020 04:38:00 AM EST [facility] ([facility]) Name Value Range Interpretation Code Description Data Ariane rce(s) Supporting Document(s) glucose, fasting 103 mg/dL 70-100 Above high normal Glucose, Fas ting P[facility] ([facility]) blood urea nitrogen 11 mg/dL 7-18 normal Blood Urea Nitro gen PERR[facility] ([facility]) creatinine for GFR 0.69 mg/dL 0.55-1.30 normal Creatinine for GF R PERRY ([facility]) glomerular filtration rate > 60.0 >51 normal Glomerula r Filtration Rate [facility] ([facility]) sodium level 138 mEq/L 136-145 normal Sodium Level [facility] ([facility]) potassium serum 4.4 mEq/L 3.5-5.1 normal Potassium Serum ATHE NA ([facility]) chloride level 109 mEq/L 98-107 Above high normal Chloride Level [facility] ([facility]) carbon dioxide level 24 mEq/L 21-32 normal Carbon Dioxide Level [facility] ([facility]) anion gap 5 mEq/L 8-16 Below low normal Anion Gap [facility] ( [facility]) calcium level 8.6 mg/dL 8.5-10.1 normal Calcium Level PERRY ( [facility]) ID Date Data Source [id number] 09/20/2020 04:38:00 AM EST [facility]) Name Value Range Interpretation Code Description Data Ariane rce(s) Supporting Document(s) white blood count 8.2 10 4.0-10.0 normal White Blood Count [facility] ([facility]) red blood count 3.22 10 4.00-5.40 Below low normal Red Blood Coun t PERRY ([facility]) hemoglobin 10.2 g/dL 12.0-15.5 Below low normal Hemoglobin PERRY ( [facility]) hematocrit 31.7 % 36.0-47.0 Below low normal Hematocrit PERRY ( [facility]) mean corpuscular volume 98.4 fL 80.0-96.0 Above high normal Mean Corpuscular Volume SAVAGE ([facility]) mean corpuscular hemoglobin 31.7 pg 27.0-33.0 normal Mean Corpuscular Hemoglobin S[place] ([facility]) mean corpuscular HGB conc 32.2 g/dL 32.0-36.5 normal Mean Corpu scular HGB Conc PERRY ([facility]) red cell distribution width 12.8 % 11.5-14.5 normal Red Cell Distribution Width PERRY ([facility]) platelet count, automated 253 10 150-450 normal [facility] neutrophils % 73.6 % 36.0-66.0 Above high normal Neutrophils % A THENA ([facility]) lymph % 8.7 % 24.0-44.0 Below low normal Lymph % SAV[place] ( [facility]) mono % 10.8 % 0.0-5.0 Above high normal [place] % S[place] ([facility]) eos % 5.6 % 0.0-3.0 Above high normal Eos % S[place] ([facility]) baso % 0.6 % 0.0-1.0 normal Baso % PERRY ([facility]) immature granulocyte % 0.7 % 0-3.0 normal Immature Gran ulocyte % SAVAGE ([facility]) nucleated red blood cell % 0.0 % 0-0 normal Nucleated Red Blood Cell % PERRY ([facility]) neutrophils # 6.0 10 1.5-8.5 normal Neutrophils # SAVAGE ( [facility]) lymph # 0.7 10 1.5-5.0 Below low normal Lymph # S[place] ( [facility]) mono # 0.9 10 0.0-0.8 Above high normal [place] # S[place]AGE ([facility]) eos # 0.5 10 0.0-0.5 normal Eos # [place] ([facility]) baso # 0.1 10 0.0-0.2 normal Baso # [facility] ([facility]) ID Date Data Source [id number] 09/19/2020 05:07:00 AM EST PERRY ([facility]) Name Value Range Interpretation Code Description Data Ariane rce(s) Supporting Document(s) glucose, fasting 87 mg/dL 70-100 normal Glucose, Fasting AT [facility] ([facility]) blood urea nitrogen 16 mg/dL 7-18 normal Blood Urea Nitro gen PERRY ([facility]) creatinine for GFR 0.75 mg/dL 0.55-1.30 normal Creatinine for GF R PERRY ([facility]) glomerular filtration rate > 60.0 >51 normal Glomerula r Filtration Rate PERRY ([facility]) sodium level 139 mEq/L 136-145 normal Sodium Level [place] ([facility]) potassium serum 4.5 mEq/L 3.5-5.1 normal Potassium Serum ATH NA ([facility]) chloride level 109 mEq/L 98-107 Above high normal Chloride Level PERRY ([facility]) carbon dioxide level 24 mEq/L 21-32 normal Carbon Dioxide Level PERRY ([facility]) anion gap 6 mEq/L 8-16 Below low normal Anion Gap PERRY ( [facility]) calcium level 8.3 mg/dL 8.5-10.1 Below low normal Calcium Level AT [facility] ([facility]) ID Date Data Source [id number] 09/19/2020 05:07:00 AM EST [facility]) Name Value Range Interpretation Code Description Data Ariane rce(s) Supporting Document(s) white blood count 7.1 10 4.0-10.0 normal White Blood Count PERRY ([facility]) red blood count 3.02 10 4.00-5.40 Below low normal Red Blood Coun t PERRY ([facility]) hemoglobin 9.5 g/dL 12.0-15.5 Below low normal Hemoglobin PERRY ( [facility]) hematocrit 30.2 % 36.0-47.0 Below low normal Hematocrit [facility]) mean corpuscular volume 100.0 fL 80.0-96.0 Above high normal Mean Corpuscular Volume PERRY ([facility]) mean corpuscular hemoglobin 31.5 pg 27.0-33.0 normal Mean Corpuscular Hemoglobin PERRY ([facility]) mean corpuscular HGB conc 31.5 g/dL 32.0-36.5 Below low ryann l Mean Corpuscular HGB Conc PERRY ([facility]) red cell distribution width 13.2 % 11.5-14.5 normal Red Cell Distribution Width PERRY ([facility]) neutrophils % 62.8 % 36.0-66.0 normal Neutrophils % PERRY ( [facility]) platelet count, automated 220 10 150-450 normal [facility] C [facility]unt, [facility] lymph % 17.8 % 24.0-44.0 Below low normal Lymph % [place] ( [facility]) eos % 6.5 % 0.0-3.0 Above high normal Eos % [place] ([facility]) mono % 11.7 % 0.0-5.0 Above high normal [place] % PERRY ([facility]) baso % 0.4 % 0.0-1.0 normal Baso % P[facility] ([facility]) nucleated red blood cell % 0.0 % 0-0 normal Nucleated Red Blood Cell % [place] ([facility]) immature granulocyte % 0.8 % 0-3.0 normal Immature Gran ulocyte % PERRY ([facility]) neutrophils # 4.5 10 1.5-8.5 normal Neutrophils # S[place] ( [facility]) mono # 0.8 10 0.0-0.8 normal [place] # PERRY ([facility]) lymph # 1.3 10 1.5-5.0 Below low normal Lymph # [place] ( [facility]) baso # 0.0 10 0.0-0.2 normal Baso # [place] ([facility]) eos # 0.5 10 0.0-0.5 normal Eos # [place] ([facility]) ID Date Data Source [id number] 09/19/2020 05:07:00 AM EST PERRY ([facility]) Name Value Range Interpretation Code Description Data Ariane rce(s) Supporting Document(s) glucose, fasting 87 mg/dL 70-100 normal Glucose, Fasting AT [place] ([facility]) creatinine for GFR 0.75 mg/dL 0.55-1.30 normal Creatinine for GF R PERRY ([facility]) blood urea nitrogen 16 mg/dL 7-18 normal Blood Urea Nitro gen PERRY ([facility]) glomerular filtration rate > 60.0 >51 normal Glomerula r Filtration Rate PERRY ([facility]) potassium serum 4.5 mEq/L 3.5-5.1 normal Potassium Serum ATH NA ([facility]) sodium level 139 mEq/L 136-145 normal Sodium Level [place] ([facility]) carbon dioxide level 24 mEq/L 21-32 normal Carbon Dioxide Level [place] ([facility]) chloride level 109 mEq/L 98-107 Above high normal Chloride Level PERRY ([facility]) anion gap 6 mEq/L 8-16 Below low normal Anion Gap PERRY ( [facility]) calcium level 8.3 mg/dL 8.5-10.1 Below low normal Calcium Level AT [facility]) ID Date Data Source [id number] 09/19/2020 05:07:00 AM EST [facility]) Name Value Range Interpretation Code Description Data Ariane rce(s) Supporting Document(s) white blood count 7.1 10 4.0-10.0 normal White Blood Count PERRY ([facility]) hemoglobin 9.5 g/dL 12.0-15.5 Below low normal Hemoglobin PERRY ( [facility]) red blood count 3.02 10 4.00-5.40 Below low normal Red Blood Coun t PERRY ([facility]) hematocrit 30.2 % 36.0-47.0 Below low normal Hematocrit PERRY ( [facility]) mean corpuscular volume 100.0 fL 80.0-96.0 Above high normal Mean Corpuscular Volume PERRY ([facility]) mean corpuscular hemoglobin 31.5 pg 27.0-33.0 normal Mean Corpuscular Hemoglobin PERRY ([facility]) mean corpuscular HGB conc 31.5 g/dL 32.0-36.5 Below low ryann l Mean Corpuscular HGB Conc [place] ([facility]) red cell distribution width 13.2 % 11.5-14.5 normal Red Cell Distribution Width PERRY ([facility]) platelet count, automated 220 10 150-450 normal Platelet C ount, Automated [facility]) lymph % 17.8 % 24.0-44.0 Below low normal Lymph % [facility]) neutrophils % 62.8 % 36.0-66.0 normal Neutrophils % [facility]) mono % 11.7 % 0.0-5.0 Above high normal [place] % [place] ([facility]) eos % 6.5 % 0.0-3.0 Above high normal Eos % [place] ([facility]) baso % 0.4 % 0.0-1.0 normal Baso % [place] ([facility]) immature granulocyte % 0.8 % 0-3.0 normal Immature Gran ulocyte % [place] ([facility]) nucleated red blood cell % 0.0 % 0-0 normal Nucleated Red Blood Cell % [place] ([facility]) neutrophils # 4.5 10 1.5-8.5 normal Neutrophils # PERRY ( [facility]) lymph # 1.3 10 1.5-5.0 Below low normal Lymph # [place] ( [facility]) mono # 0.8 10 0.0-0.8 normal [place] # [place] ([facility]) eos # 0.5 10 0.0-0.5 normal Eos # [place] ([facility]) baso # 0.0 10 0.0-0.2 normal Baso # [place] ([facility]) ID Date Data Source [id number] 09/19/2020 05:07:00 AM EST PERRY ([facility]) Name Value Range Interpretation Code Description Data Ariane rce(s) Supporting Document(s) glucose, fasting 87 mg/dL 70-100 normal Glucose, Fasting AT [facility]) blood urea nitrogen 16 mg/dL 7-18 normal Blood Urea Nitro gen PERRY ([facility]) creatinine for GFR 0.75 mg/dL 0.55-1.30 normal Creatinine for GF R PERRY ([facility]) glomerular filtration rate > 60.0 >51 normal Glomerula r Filtration Rate PERRY ([facility]) sodium level 139 mEq/L 136-145 normal Sodium Level [facility] ([facility]) potassium serum 4.5 mEq/L 3.5-5.1 normal Potassium Serum ATH NA ([facility]) chloride level 109 mEq/L 98-107 Above high normal Chloride Level [place] ([facility]) carbon dioxide level 24 mEq/L 21-32 normal Carbon Dioxide Level PERRY ([facility]) anion gap 6 mEq/L 8-16 Below low normal Anion Gap PERRY ( [facility]) calcium level 8.3 mg/dL 8.5-10.1 Below low normal Calcium Level AT [facility] ([facility]) ID Date Data Source [id number] 09/19/2020 05:07:00 AM EST PERRY ([facility]) Name Value Range Interpretation Code Description Data Ariane rce(s) Supporting Document(s) white blood count 7.1 10 4.0-10.0 normal White Blood Count PERRY ([facility]) red blood count 3.02 10 4.00-5.40 Below low normal Red Blood Coun t PERRY ([facility]) hemoglobin 9.5 g/dL 12.0-15.5 Below low normal Hemoglobin PERRY ( [facility]) hematocrit 30.2 % 36.0-47.0 Below low normal Hematocrit PERRY ( [facility]) mean corpuscular volume 100.0 fL 80.0-96.0 Above high normal Mean Corpuscular Volume PERRY ([facility]) mean corpuscular hemoglobin 31.5 pg 27.0-33.0 normal Mean Corpuscular Hemoglobin PERRY ([facility]) mean corpuscular HGB conc 31.5 g/dL 32.0-36.5 Below low ryann l Mean Corpuscular HGB Conc [place] ([facility]) red cell distribution width 13.2 % 11.5-14.5 normal Red Cell Distribution Width PERRY ([facility]) platelet count, automated 220 10 150-450 normal Platelet C ount, Automated [facility]) neutrophils % 62.8 % 36.0-66.0 normal Neutrophils % [place] ( [facility]) lymph % 17.8 % 24.0-44.0 Below low normal Lymph % [facility]) mono % 11.7 % 0.0-5.0 Above high normal [place] % P[facility]Y ([facility]) eos % 6.5 % 0.0-3.0 Above high normal Eos % [place] ([facility]) baso % 0.4 % 0.0-1.0 normal Baso % [place] ([facility]) immature granulocyte % 0.8 % 0-3.0 normal Immature Gran ulocyte % [place] ([facility]) nucleated red blood cell % 0.0 % 0-0 normal Nucleated Red Blood Cell % [place] ([facility]) neutrophils # 4.5 10 1.5-8.5 normal Neutrophils # [place] ( [facility]) lymph # 1.3 10 1.5-5.0 Below low normal Lymph # [place] ( [facility]) mono # 0.8 10 0.0-0.8 normal [place] # [place] ([facility]) eos # 0.5 10 0.0-0.5 normal Eos # [place] ([facility]) baso # 0.0 10 0.0-0.2 normal Baso # [place] ([facility]) ID Date Data Source [id number] 09/19/2020 05:07:00 AM EST PERRY ([facility]) Name Value Range Interpretation Code Description Data Ariane rce(s) Supporting Document(s) glucose, fasting 87 mg/dL 70-100 normal Glucose, Fasting AT [facility]) blood urea nitrogen 16 mg/dL 7-18 normal Blood Urea Nitro gen [place] ([facility]) glomerular filtration rate > 60.0 >51 normal Glomerula r Filtration Rate S[place] ([facility]) creatinine for GFR 0.75 mg/dL 0.55-1.30 normal Creatinine for GF R PERRY ([facility]) sodium level 139 mEq/L 136-145 normal Sodium Level [place] (No [facility]) potassium serum 4.5 mEq/L 3.5-5.1 normal Potassium Serum ATH NA ([facility]) chloride level 109 mEq/L 98-107 Above high normal Chloride Level PERRY ([facility]) anion gap 6 mEq/L 8-16 Below low normal Anion Gap [place] ( [facility]) carbon dioxide level 24 mEq/L 21-32 normal Carbon Dioxide Level PERRY ([facility]) calcium level 8.3 mg/dL 8.5-10.1 Below low normal Calcium Level AT [facility] ([facility]) ID Date Data Source [id number] 09/19/2020 05:07:00 AM EST PERRY ([facility]) Name Value Range Interpretation Code Description Data Ariane rce(s) Supporting Document(s) white blood count 7.1 10 4.0-10.0 normal White Blood Count PERRY ([facility]) red blood count 3.02 10 4.00-5.40 Below low normal Red Blood Coun t PERRY ([facility]) hemoglobin 9.5 g/dL 12.0-15.5 Below low normal Hemoglobin PERRY ( [facility]) mean corpuscular volume 100.0 fL 80.0-96.0 Above high normal Mean Corpuscular Volume PERRY ([facility]) hematocrit 30.2 % 36.0-47.0 Below low normal Hematocrit PERRY ( [facility]) mean corpuscular hemoglobin 31.5 pg 27.0-33.0 normal Mean Corpuscular Hemoglobin PERRY ([facility]) mean corpuscular HGB conc 31.5 g/dL 32.0-36.5 Below low ryann l Mean Corpuscular HGB Conc PERRY ([facility]) red cell distribution width 13.2 % 11.5-14.5 normal Red Cell Distribution Width PERRY ([facility]) neutrophils % 62.8 % 36.0-66.0 normal Neutrophils % PERRY ( [facility]) platelet count, automated 220 10 150-450 normal Platelet C ount, Automated [facility]) lymph % 17.8 % 24.0-44.0 Below low normal Lymph % [facility]) eos % 6.5 % 0.0-3.0 Above high normal Eos % [facility]) mono % 11.7 % 0.0-5.0 Above high normal [place] % [place] ([facility]) baso % 0.4 % 0.0-1.0 normal Baso % [place] ([facility]) immature granulocyte % 0.8 % 0-3.0 normal Immature Gran ulocyte % [place] ([facility]) nucleated red blood cell % 0.0 % 0-0 normal Nucleated Red Blood Cell % [place] ([facility]) neutrophils # 4.5 10 1.5-8.5 normal Neutrophils # [place] ( [facility]) lymph # 1.3 10 1.5-5.0 Below low normal Lymph # [place] ( [facility]) mono # 0.8 10 0.0-0.8 normal [place] # [place] ([facility]) eos # 0.5 10 0.0-0.5 normal Eos # [place] ([facility]) baso # 0.0 10 0.0-0.2 normal Baso # PERRY ([facility]) ID Date Data Source [id number] 09/18/2020 05:08:00 AM EST [facility] ([facility]) Name Value Range Interpretation Code Description Data Ariane rce(s) Supporting Document(s) glucose, fasting 89 mg/dL 70-100 normal Glucose, Fasting AT [facility]) blood urea nitrogen 17 mg/dL 7-18 normal Blood Urea Nitro gen PERRY ([facility]) glomerular filtration rate > 60.0 >51 normal Glomerula r Filtration Rate PERRY ([facility]) creatinine for GFR 0.76 mg/dL 0.55-1.30 normal Creatinine for GF R PERRY ([facility]) potassium serum 4.7 mEq/L 3.5-5.1 D Potassium Serum ATHE NA ([facility]) sodium level 140 mEq/L 136-145 normal Sodium Level [place] ([facility]) chloride level 109 mEq/L 98-107 Above high normal Chloride Level P[facility]Y ([facility]) anion gap 3 mEq/L 8-16 Below low normal Anion Gap PERRY ( [facility]) carbon dioxide level 28 mEq/L 21-32 normal Carbon Dioxide Level [facility]ERRY ([facility]) calcium level 8.3 mg/dL 8.5-10.1 Below low normal Calcium Level AT [facility] ([facility]) ID Date Data Source [id number] 09/18/2020 05:08:00 AM EST [facility] ([facility]) Name Value Range Interpretation Code Description Data Ariane rce(s) Supporting Document(s) white blood count 8.3 10 4.0-10.0 normal White Blood Count [facility] ([facility]) red blood count 3.07 10 4.00-5.40 Below low normal Red Blood Coun t PERRY ([facility]) hemoglobin 9.7 g/dL 12.0-15.5 Below low normal Hemoglobin PERRY ( [facility]) hematocrit 30.2 % 36.0-47.0 Below low normal Hematocrit PERRY ( [facility]) mean corpuscular volume 98.4 fL 80.0-96.0 Above high normal Mean Corpuscular Volume PERRY ([facility]) mean corpuscular hemoglobin 31.6 pg 27.0-33.0 normal Mean Corpuscular Hemoglobin PERRY ([facility]) mean corpuscular HGB conc 32.1 g/dL 32.0-36.5 normal Mean Corpu scular HGB Conc PERRY ([facility]) red cell distribution width 13.2 % 11.5-14.5 normal Red Cell Distribution Width PERRY ([facility]) platelet count, automated 208 10 150-450 normal Platelet C ount, Automated [facility]Y ([facility]) lymph % 16.5 % 24.0-44.0 Below low normal Lymph % [place] ( [facility]) neutrophils % 65.9 % 36.0-66.0 normal Neutrophils % [place] ( [facility]) mono % 11.3 % 0.0-5.0 Above high normal [place] % [place] ([facility]) eos % 5.5 % 0.0-3.0 Above high normal Eos % [place] ([facility]) baso % 0.4 % 0.0-1.0 normal Baso % [place] ([facility]) nucleated red blood cell % 0.0 % 0-0 normal Nucleated Red Blood Cell % [place] ([facility]) immature granulocyte % 0.4 % 0-3.0 normal Immature Gran ulocyte % [place] ([facility]) neutrophils # 5.5 10 1.5-8.5 normal Neutrophils # [place] ( [facility]) lymph # 1.4 10 1.5-5.0 Below low normal Lymph # [place] ( [facility]) eos # 0.5 10 0.0-0.5 normal Eos # [place] ([facility]) mono # 0.9 10 0.0-0.8 Above high normal [place] # [place] ([facility]) baso # 0.0 10 0.0-0.2 normal Baso # [place] ([facility]) ID Date Data Source [id number] 09/18/2020 05:08:00 AM EST [facility] ([facility]) Name Value Range Interpretation Code Description Data Ariane rce(s) Supporting Document(s) glucose, fasting 89 mg/dL 70-100 normal Glucose, Fasting AT [facility]) blood urea nitrogen 17 mg/dL 7-18 normal Blood Urea Nitro gen PERRY ([facility]) creatinine for GFR 0.76 mg/dL 0.55-1.30 normal Creatinine for GF R [facility]ERRY ([facility]) glomerular filtration rate > 60.0 >51 normal Glomerula r Filtration Rate PERRY ([facility]) potassium serum 4.7 mEq/L 3.5-5.1 D Potassium Serum ATHE NA ([facility]) sodium level 140 mEq/L 136-145 normal Sodium Level [place] (No [facility]) chloride level 109 mEq/L 98-107 Above high normal Chloride Level [place] ([facility]) carbon dioxide level 28 mEq/L 21-32 normal Carbon Dioxide Level PERRY ([facility]) anion gap 3 mEq/L 8-16 Below low normal Anion Gap PERRY ( [facility]) calcium level 8.3 mg/dL 8.5-10.1 Below low normal Calcium Level AT [facility] ([facility]) ID Date Data Source [id number] 09/18/2020 05:08:00 AM EST [place] ([facility]) Name Value Range Interpretation Code Description Data Ariane rce(s) Supporting Document(s) white blood count 8.3 10 4.0-10.0 normal White Blood Count [facility] ([facility]) red blood count 3.07 10 4.00-5.40 Below low normal Red Blood Coun t [facility]ERR[facility] ([facility]) hemoglobin 9.7 g/dL 12.0-15.5 Below low normal Hemoglobin PERRY ( [facility]) hematocrit 30.2 % 36.0-47.0 Below low normal Hematocrit [facility] ( [facility]) mean corpuscular volume 98.4 fL 80.0-96.0 Above high normal Mean Corpuscular Volume PERRY ([facility]) mean corpuscular hemoglobin 31.6 pg 27.0-33.0 normal Mean Corpuscular Hemoglobin PERRY ([facility]) mean corpuscular HGB conc 32.1 g/dL 32.0-36.5 normal Mean Corpu scular HGB Conc PERRY ([facility]) red cell distribution width 13.2 % 11.5-14.5 normal Red Cell Distribution Width [facility] ([facility]) platelet count, automated 208 10 150-450 normal Platelet C ount, Automated [place] ([facility]) lymph % 16.5 % 24.0-44.0 Below low normal Lymph % [facility] ( [facility]) neutrophils % 65.9 % 36.0-66.0 normal Neutrophils % [place] ( [facility]) eos % 5.5 % 0.0-3.0 Above high normal Eos % [place] ([facility]) mono % 11.3 % 0.0-5.0 Above high normal [place] % [place] ([facility]) baso % 0.4 % 0.0-1.0 normal Baso % [place] ([facility]) immature granulocyte % 0.4 % 0-3.0 normal Immature Gran ulocyte % [place] ([facility]) nucleated red blood cell % 0.0 % 0-0 normal Nucleated Red Blood Cell % [place] ([facility]) lymph # 1.4 10 1.5-5.0 Below low normal Lymph # [facility] ( [facility]) neutrophils # 5.5 10 1.5-8.5 normal Neutrophils # [place] ( [facility]) mono # 0.9 10 0.0-0.8 Above high normal [place] # [place] ([facility]) eos # 0.5 10 0.0-0.5 normal Eos # [place] ([facility]) baso # 0.0 10 0.0-0.2 normal Baso # [facility] ([facility]) ID Date Data Source [id number] 09/18/2020 05:08:00 AM EST [facility]) Name Value Range Interpretation Code Description Data Ariane rce(s) Supporting Document(s) glucose, fasting 89 mg/dL 70-100 normal Glucose, Fasting AT [facility]) blood urea nitrogen 17 mg/dL 7-18 normal Blood Urea Nitro gen [facility] [facility] creatinine for GFR 0.76 mg/dL 0.55-1.30 normal Creatinine for GF R PERRY ([facility]) glomerular filtration rate > 60.0 >51 normal Glomerula r Filtration Rate PERRY ([facility]) sodium level 140 mEq/L 136-145 normal Sodium Level PERRY ([facility]) potassium serum 4.7 mEq/L 3.5-5.1 D Potassium Serum ATH NA ([facility]) chloride level 109 mEq/L 98-107 Above high normal Chloride Level PERRY ([facility]) carbon dioxide level 28 mEq/L 21-32 normal Carbon Dioxide Level PERRY ([facility]) anion gap 3 mEq/L 8-16 Below low normal Anion Gap PERRY ( [facility]) calcium level 8.3 mg/dL 8.5-10.1 Below low normal Calcium Level AT [facility]) ID Date Data Source [id number] 09/18/2020 05:08:00 AM EST PERRY ([facility]) Name Value Range Interpretation Code Description Data Ariane e(s) Supporting Document(s) white blood count 8.3 10 4.0-10.0 normal White Blood Count PERRY ([facility]) red blood count 3.07 10 4.00-5.40 Below low normal Red Blood Coun t PERRY ([facility]) hemoglobin 9.7 g/dL 12.0-15.5 Below low normal Hemoglobin PERRY ( [facility]) hematocrit 30.2 % 36.0-47.0 Below low normal Hematocrit PERRY ( [facility]) mean corpuscular volume 98.4 fL 80.0-96.0 Above high normal Mean Corpuscular Volume PERRY ([facility]) mean corpuscular hemoglobin 31.6 pg 27.0-33.0 normal Mean Corpuscular Hemoglobin PERRY ([facility]) mean corpuscular HGB conc 32.1 g/dL 32.0-36.5 normal Mean Corpu scular HGB Conc PERRY ([facility]) red cell distribution width 13.2 % 11.5-14.5 normal Red Cell Distribution Width PERRY ([facility]) platelet count, automated 208 10 150-450 normal Platelet C ount, Automated PERRY ([facility]) neutrophils % 65.9 % 36.0-66.0 normal Neutrophils % PERRY ( [facility]) lymph % 16.5 % 24.0-44.0 Below low normal Lymph % PERRY ( [facility]) mono % 11.3 % 0.0-5.0 Above high normal [place] % PERRY ([facility]) eos % 5.5 % 0.0-3.0 Above high normal Eos % PERRY ([facility]) baso % 0.4 % 0.0-1.0 normal Baso % [place] ([facility]) immature granulocyte % 0.4 % 0-3.0 normal Immature Gran ulocyte % [place] ([facility]) nucleated red blood cell % 0.0 % 0-0 normal Nucleated Red Blood Cell % [place] ([facility]) neutrophils # 5.5 10 1.5-8.5 normal Neutrophils # [place] ( [facility]) lymph # 1.4 10 1.5-5.0 Below low normal Lymph # [place] ( [facility]) mono # 0.9 10 0.0-0.8 Above high normal [place] # [place] ([facility]) eos # 0.5 10 0.0-0.5 normal Eos # [place] ([facility]) baso # 0.0 10 0.0-0.2 normal Baso # [place] ([facility]) ID Date Data Source [id number] 09/18/2020 05:08:00 AM EST [facility]) Name Value Range Interpretation Code Description Data Ariane rce(s) Supporting Document(s) glucose, fasting 89 mg/dL 70-100 normal Glucose, Fasting AT [facility]) blood urea nitrogen 17 mg/dL 7-18 normal Blood Urea Nitro gen PERRY ([facility]) glomerular filtration rate > 60.0 >51 normal Glomerula r Filtration Rate PERRY ([facility]) creatinine for GFR 0.76 mg/dL 0.55-1.30 normal Creatinine for GF R PERRY ([facility]) sodium level 140 mEq/L 136-145 normal Sodium Level PERRY ([facility]) potassium serum 4.7 mEq/L 3.5-5.1 D Potassium Serum ATH NA ([facility]) chloride level 109 mEq/L 98-107 Above high normal Chloride Level PERRY ([facility]) anion gap 3 mEq/L 8-16 Below low normal Anion Gap PERRY ( [facility]) carbon dioxide level 28 mEq/L 21-32 normal Carbon Dioxide Level PERRY ([facility]) calcium level 8.3 mg/dL 8.5-10.1 Below low normal Calcium Level AT [facility]) ID Date Data Source [id number] 09/18/2020 05:08:00 AM EST PERRY ([facility]) Name Value Range Interpretation Code Description Data Ariane rce(s) Supporting Document(s) white blood count 8.3 10 4.0-10.0 normal White Blood Count PERRY ([facility]) red blood count 3.07 10 4.00-5.40 Below low normal Red Blood Coun t PERRY ([facility]) hematocrit 30.2 % 36.0-47.0 Below low normal Hematocrit PERRY ( [facility]) hemoglobin 9.7 g/dL 12.0-15.5 Below low normal Hemoglobin PERRY ( [facility]) mean corpuscular hemoglobin 31.6 pg 27.0-33.0 normal Mean Corpuscular Hemoglobin PERRY ([facility]) mean corpuscular volume 98.4 fL 80.0-96.0 Above high normal Mean Corpuscular Volume PERRY ([facility]) mean corpuscular HGB conc 32.1 g/dL 32.0-36.5 normal Mean Corpu scular HGB Conc PERRY ([facility]) red cell distribution width 13.2 % 11.5-14.5 normal Red Cell Distribution Width PERRY ([facility]) platelet count, automated 208 10 150-450 normal Platelet C ount, Automated [facility]) neutrophils % 65.9 % 36.0-66.0 normal Neutrophils % [facility]) lymph % 16.5 % 24.0-44.0 Below low normal Lymph % [facility]) eos % 5.5 % 0.0-3.0 Above high normal Eos % PERRY ([facility]) mono % 11.3 % 0.0-5.0 Above high normal [place] % [facility]) immature granulocyte % 0.4 % 0-3.0 normal Immature Gran ulocyte % [facility]) baso % 0.4 % 0.0-1.0 normal Baso % PERRY ([facility]) nucleated red blood cell % 0.0 % 0-0 normal Nucleated Red Blood Cell % PERRY ([facility]) lymph # 1.4 10 1.5-5.0 Below low normal Lymph # [place] ( [facility]) neutrophils # 5.5 10 1.5-8.5 normal Neutrophils # [place] ( [facility]) eos # 0.5 10 0.0-0.5 normal Eos # [place] ([facility]) mono # 0.9 10 0.0-0.8 Above high normal [place] # [place] ([facility]) baso # 0.0 10 0.0-0.2 normal Baso # [place] ([facility]) ID Date Data Source [id number] 09/17/2020 09:25:00 AM EST PERRY ([facility]) Name Value Range Interpretation Code Description Data Ariane rce(s) Supporting Document(s) blood urea nitrogen 12 mg/dL 7-18 normal Blood Urea Nitro gen PERRY ([facility]) glucose, fasting 84 mg/dL 70-100 normal Glucose, Fasting AT [facility]) glomerular filtration rate > 60.0 >51 normal Glomerula r Filtration Rate PERRY ([facility]) creatinine for GFR 0.86 mg/dL 0.55-1.30 normal Creatinine for GF R PERRY ([facility]) potassium serum 3.6 mEq/L 3.5-5.1 normal Potassium Serum ATH NA ([facility]) sodium level 137 mEq/L 136-145 normal Sodium Level PERRY ([facility]) chloride level 108 mEq/L 98-107 Above high normal Chloride Level PERRY ([facility]) carbon dioxide level 23 mEq/L 21-32 normal Carbon Dioxide Level PERRY ([facility]) calcium level 8.0 mg/dL 8.5-10.1 Below low normal Calcium Level AT [facility]) anion gap 6 mEq/L 8-16 Below low normal Anion Gap PERRY ( [facility]) ID Date Data Source [id number] 09/17/2020 09:25:00 AM EST PERRY ([facility]) Name Value Range Interpretation Code Description Data Ariane rce(s) Supporting Document(s) white blood count 8.7 10 4.0-10.0 normal White Blood Count [place] ([facility]) red blood count 3.19 10 4.00-5.40 Below low normal Red Blood Coun t [place] ([facility]) hemoglobin 9.9 g/dL 12.0-15.5 Below low normal Hemoglobin [place] ( [facility]) hematocrit 32.2 % 36.0-47.0 Below low normal Hematocrit [place] ( [facility]) mean corpuscular volume 100.9 fL 80.0-96.0 Above high normal Mean Corpuscular Volume [place] ([facility]) mean corpuscular hemoglobin 31.0 pg 27.0-33.0 normal Mean Corpuscular Hemoglobin [place] ([facility]) red cell distribution width 13.7 % 11.5-14.5 normal Red Cell Distribution Width PERRY ([facility]) mean corpuscular HGB conc 30.7 g/dL 32.0-36.5 Below low ryann l Mean Corpuscular HGB Conc PERRY ([facility]) neutrophils % 78.5 % 36.0-66.0 Above high normal Neutrophils % A THENA ([facility]) platelet count, automated 201 10 150-450 normal Platelet C ount, Automated PERRY ([facility]) lymph % 11.2 % 24.0-44.0 Below low normal Lymph % PERRY ( [facility]) mono % 7.1 % 0.0-5.0 Above high normal [place] % PERRY ([facility]) eos % 2.0 % 0.0-3.0 normal Eos % [place] ([facility]) baso % 0.5 % 0.0-1.0 normal Baso % PERRY ([facility]) immature granulocyte % 0.7 % 0-3.0 normal Immature Gran ulocyte % PERRY ([facility]) neutrophils # 6.8 10 1.5-8.5 normal Neutrophils # [place] ( [facility]) nucleated red blood cell % 0.0 % 0-0 normal Nucleated Red Blood Cell % PERRY ([facility]) lymph # 1.0 10 1.5-5.0 Below low normal Lymph # [place] ( [facility]) mono # 0.6 10 0.0-0.8 normal [place] # [place] ([facility]) eos # 0.2 10 0.0-0.5 normal Eos # [place] ([facility]) baso # 0.0 10 0.0-0.2 normal Baso # [place] ([facility]) ID Date Data Source [id number] 09/17/2020 09:25:00 AM EST [place] ([facility]) Name Value Range Interpretation Code Description Data Ariane rce(s) Supporting Document(s) glucose, fasting 84 mg/dL 70-100 normal Glucose, Fasting AT [facility]) creatinine for GFR 0.86 mg/dL 0.55-1.30 normal Creatinine for GF R PERRY ([facility]) blood urea nitrogen 12 mg/dL 7-18 normal Blood Urea Nitro gen PERRY ([facility]) glomerular filtration rate > 60.0 >51 normal Glomerula r Filtration Rate PERRY ([facility]) potassium serum 3.6 mEq/L 3.5-5.1 normal Potassium Serum ATH NA ([facility]) sodium level 137 mEq/L 136-145 normal Sodium Level PERRY ([facility]) chloride level 108 mEq/L 98-107 Above high normal Chloride Level PERRY ([facility]) carbon dioxide level 23 mEq/L 21-32 normal Carbon Dioxide Level PERRY ([facility]) anion gap 6 mEq/L 8-16 Below low normal Anion Gap PERRY ( [facility]) calcium level 8.0 mg/dL 8.5-10.1 Below low normal Calcium Level AT [facility]) ID Date Data Source [id number] 09/17/2020 09:25:00 AM EST PERRY ([facility]) Name Value Range Interpretation Code Description Data Ariane rce(s) Supporting Document(s) white blood count 8.7 10 4.0-10.0 normal White Blood Count PERRY ([facility]) red blood count 3.19 10 4.00-5.40 Below low normal Red Blood Coun t [place] ([facility]) hematocrit 32.2 % 36.0-47.0 Below low normal Hematocrit [place] ( [facility]) hemoglobin 9.9 g/dL 12.0-15.5 Below low normal Hemoglobin [place] ( [facility]) mean corpuscular hemoglobin 31.0 pg 27.0-33.0 normal Mean Corpuscular Hemoglobin [place] ([facility]) mean corpuscular volume 100.9 fL 80.0-96.0 Above high normal Mean Corpuscular Volume [place] ([facility]) mean corpuscular HGB conc 30.7 g/dL 32.0-36.5 Below low ryann l Mean Corpuscular HGB Conc PERRY ([facility]) red cell distribution width 13.7 % 11.5-14.5 normal Red Cell Distribution Width PERRY ([facility]) platelet count, automated 201 10 150-450 normal Platelet C ount, Automated PERRY ([facility]) neutrophils % 78.5 % 36.0-66.0 Above high normal Neutrophils % A THENA ([facility]) lymph % 11.2 % 24.0-44.0 Below low normal Lymph % PERRY ( [facility]) eos % 2.0 % 0.0-3.0 normal Eos % PERRY ([facility]) mono % 7.1 % 0.0-5.0 Above high normal [place] % PERRY ([facility]) immature granulocyte % 0.7 % 0-3.0 normal Immature Gran ulocyte % PERRY ([facility]) baso % 0.5 % 0.0-1.0 normal Baso % PERR[facility] ([facility]) neutrophils # 6.8 10 1.5-8.5 normal Neutrophils # PERRY ( [facility]) nucleated red blood cell % 0.0 % 0-0 normal Nucleated Red Blood Cell % [place] ([facility]) lymph # 1.0 10 1.5-5.0 Below low normal Lymph # PERRY ( [facility]) mono # 0.6 10 0.0-0.8 normal [place] # [place] ([facility]) eos # 0.2 10 0.0-0.5 normal Eos # [place] ([facility]) baso # 0.0 10 0.0-0.2 normal Baso # [place] ([facility]) ID Date Data Source [id number] 09/17/2020 09:25:00 AM EST PERRY ([facility]) Name Value Range Interpretation Code Description Data Ariane rce(s) Supporting Document(s) glucose, fasting 84 mg/dL 70-100 normal Glucose, Fasting AT [facility]) blood urea nitrogen 12 mg/dL 7-18 normal Blood Urea Nitro gen PERRY ([facility]) creatinine for GFR 0.86 mg/dL 0.55-1.30 normal Creatinine for GF R PERRY ([facility]) glomerular filtration rate > 60.0 >51 normal Glomerula r Filtration Rate PERRY ([facility]) sodium level 137 mEq/L 136-145 normal Sodium Level [place] ([facility]) potassium serum 3.6 mEq/L 3.5-5.1 normal Potassium Serum ATH NA ([facility]) chloride level 108 mEq/L 98-107 Above high normal Chloride Level PERRY ([facility]) carbon dioxide level 23 mEq/L 21-32 normal Carbon Dioxide Level PERRY ([facility]) anion gap 6 mEq/L 8-16 Below low normal Anion Gap PERRY ( [facility]) calcium level 8.0 mg/dL 8.5-10.1 Below low normal Calcium Level AT [facility]) ID Date Data Source [id number] 09/17/2020 09:25:00 AM EST PERRY ([facility]) Name Value Range Interpretation Code Description Data Ariane rce(s) Supporting Document(s) white blood count 8.7 10 4.0-10.0 normal White Blood Count PERRY ([facility]) red blood count 3.19 10 4.00-5.40 Below low normal Red Blood Coun t [place] ([facility]) hemoglobin 9.9 g/dL 12.0-15.5 Below low normal Hemoglobin [place] ( [facility]) hematocrit 32.2 % 36.0-47.0 Below low normal Hematocrit [place] ( [facility]) mean corpuscular volume 100.9 fL 80.0-96.0 Above high normal Mean Corpuscular Volume [place] ([facility]) mean corpuscular HGB conc 30.7 g/dL 32.0-36.5 Below low ryann l Mean Corpuscular HGB Conc [place] ([facility]) mean corpuscular hemoglobin 31.0 pg 27.0-33.0 normal Mean Corpuscular Hemoglobin PERRY ([facility]) red cell distribution width 13.7 % 11.5-14.5 normal Red Cell Distribution Width PERRY ([facility]) platelet count, automated 201 10 150-450 normal Platelet C ount, Automated PERRY ([facility]) neutrophils % 78.5 % 36.0-66.0 Above high normal Neutrophils % A THENA ([facility]) lymph % 11.2 % 24.0-44.0 Below low normal Lymph % PERRY ( [facility]) mono % 7.1 % 0.0-5.0 Above high normal [place] % PERRY ([facility]) eos % 2.0 % 0.0-3.0 normal Eos % [facility] ([facility]) baso % 0.5 % 0.0-1.0 normal Baso % [place] ([facility]) immature granulocyte % 0.7 % 0-3.0 normal Immature Gran ulocyte % [place] ([facility]) nucleated red blood cell % 0.0 % 0-0 normal Nucleated Red Blood Cell % PERRY ([facility]) neutrophils # 6.8 10 1.5-8.5 normal Neutrophils # [place] ( [facility]) lymph # 1.0 10 1.5-5.0 Below low normal Lymph # [place] ( [facility]) mono # 0.6 10 0.0-0.8 normal [place] # [place] ([facility]) eos # 0.2 10 0.0-0.5 normal Eos # [place] ([facility]) baso # 0.0 10 0.0-0.2 normal Baso # [place] ([facility]) ID Date Data Source [id number] 09/17/2020 09:25:00 AM EST [place] ([facility]) Name Value Range Interpretation Code Description Data Ariane rce(s) Supporting Document(s) glucose, fasting 84 mg/dL 70-100 normal Glucose, Fasting AT [facility]) blood urea nitrogen 12 mg/dL 7-18 normal Blood Urea Nitro gen PERRY ([facility]) creatinine for GFR 0.86 mg/dL 0.55-1.30 normal Creatinine for GF R PERRY ([facility]) sodium level 137 mEq/L 136-145 normal Sodium Level PERRY ([facility]) glomerular filtration rate > 60.0 >51 normal Glomerula r Filtration Rate PERRY ([facility]) potassium serum 3.6 mEq/L 3.5-5.1 normal Potassium Serum ATH NA ([facility]) chloride level 108 mEq/L 98-107 Above high normal Chloride Level PERRY ([facility]) anion gap 6 mEq/L 8-16 Below low normal Anion Gap PERRY ( [facility]) carbon dioxide level 23 mEq/L 21-32 normal Carbon Dioxide Level PERRY ([facility]) calcium level 8.0 mg/dL 8.5-10.1 Below low normal Calcium Level AT [facility] ([facility]) ID Date Data Source [id number] 09/17/2020 09:25:00 AM EST [place] ([facility]) Name Value Range Interpretation Code Description Data Ariane rce(s) Supporting Document(s) white blood count 8.7 10 4.0-10.0 normal White Blood Count PERRY ([facility]) red blood count 3.19 10 4.00-5.40 Below low normal Red Blood Coun t PERRY ([facility]) hemoglobin 9.9 g/dL 12.0-15.5 Below low normal Hemoglobin [place] ( [facility]) mean corpuscular volume 100.9 fL 80.0-96.0 Above high normal Mean Corpuscular Volume [place] ([facility]) hematocrit 32.2 % 36.0-47.0 Below low normal Hematocrit [place] ( [facility]) mean corpuscular hemoglobin 31.0 pg 27.0-33.0 normal Mean Corpuscular Hemoglobin [place] ([facility]) red cell distribution width 13.7 % 11.5-14.5 normal Red Cell Distribution Width [place] ([facility]) mean corpuscular HGB conc 30.7 g/dL 32.0-36.5 Below low ryann l Mean Corpuscular HGB Conc [place] ([facility]) platelet count, automated 201 10 150-450 normal Platelet C ount, Automated [place] ([facility]) neutrophils % 78.5 % 36.0-66.0 Above high normal Neutrophils % A THENA ([facility]) mono % 7.1 % 0.0-5.0 Above high normal [place] % [place] ([facility]) lymph % 11.2 % 24.0-44.0 Below low normal Lymph % [place] ( [facility]) eos % 2.0 % 0.0-3.0 normal Eos % [place] ([facility]) immature granulocyte % 0.7 % 0-3.0 normal Immature Gran ulocyte % [place] ([facility]) baso % 0.5 % 0.0-1.0 normal Baso % [place] ([facility]) neutrophils # 6.8 10 1.5-8.5 normal Neutrophils # [place] ( [facility]) nucleated red blood cell % 0.0 % 0-0 normal Nucleated Red Blood Cell % [place] ([facility]) lymph # 1.0 10 1.5-5.0 Below low normal Lymph # [place] ( [facility]) mono # 0.6 10 0.0-0.8 normal [place] # [place] ([facility]) eos # 0.2 10 0.0-0.5 normal Eos # [place] ([facility]) baso # 0.0 10 0.0-0.2 normal Baso # [place] ([facility]) ID Date Data Source [id number] 09/16/2020 01:47:00 PM EST [place] ([facility]) Name Value Range Interpretation Code Description Data Ariane rce(s) Supporting Document(s) vancomycin level trough 17.2 ug/mL 10.0-20.0 normal Vancomycin L evel Trough [place] ([facility]) ID Date Data Source [id number] 09/16/2020 01:47:00 PM EST [place] ([facility]) Name Value Range Interpretation Code Description Data Ariane rce(s) Supporting Document(s) vancomycin level trough 17.2 ug/mL 10.0-20.0 normal Vancomycin L evel Trough [place] ([facility]) ID Date Data Source [id number] 09/16/2020 01:47:00 PM EST [place] ([facility]) Name Value Range Interpretation Code Description Data Ariane rce(s) Supporting Document(s) vancomycin level trough 17.2 ug/mL 10.0-20.0 normal Vancomycin L evel Trough [place] ([facility]) ID Date Data Source [id number] 09/16/2020 01:47:00 PM EST [place] ([facility]) Name Value Range Interpretation Code Description Data Ariane rce(s) Supporting Document(s) vancomycin level trough 17.2 ug/mL 10.0-20.0 normal Vancomycin L evel Trough [place] ([facility]) ID Date Data Source [id number] 09/16/2020 05:16:00 AM EST [place] ([facility]) Name Value Range Interpretation Code Description Data Ariane rce(s) Supporting Document(s) blood urea nitrogen 11 mg/dL 7-18 normal Blood Urea Nitro gen [place] ([facility]) glucose, fasting 101 mg/dL 70-100 Above high normal Glucose, Fas ting [place] ([facility]) glomerular filtration rate > 60.0 >51 normal Glomerula r Filtration Rate PERRY ([facility]) creatinine for GFR 0.58 mg/dL 0.55-1.30 normal Creatinine for GF R PERRY ([facility]) chloride level 111 mEq/L 98-107 Above high normal Chloride Level [place] ([facility]) sodium level 141 mEq/L 136-145 normal Sodium Level [place] ([facility]) potassium serum 4.1 mEq/L 3.5-5.1 normal Potassium Serum [facility] ([facility]) carbon dioxide level 23 mEq/L 21-32 normal Carbon Dioxide Level PERRY ([facility]) anion gap 7 mEq/L 8-16 Below low normal Anion Gap PERRY ( [facility]) calcium level 7.9 mg/dL 8.5-10.1 Below low normal Calcium Level AT [place] ([facility]) ID Date Data Source [id number] 09/16/2020 05:16:00 AM EST [place] ([facility]) Name Value Range Interpretation Code Description Data Ariane rce(s) Supporting Document(s) white blood count 9.9 10 4.0-10.0 normal White Blood Count PERRY ([facility]) red blood count 3.20 10 4.00-5.40 Below low normal Red Blood Coun t PERRY ([facility]) hematocrit 31.2 % 36.0-47.0 Below low normal Hematocrit SAVAGE ( [facility]) hemoglobin 9.9 g/dL 12.0-15.5 Below low normal Hemoglobin PERRY ( [facility]) mean corpuscular volume 97.5 fL 80.0-96.0 Above high normal Mean Corpuscular Volume PERRY ([facility]) mean corpuscular hemoglobin 30.9 pg 27.0-33.0 normal Mean Corpuscular Hemoglobin PERRY ([facility]) red cell distribution width 13.2 % 11.5-14.5 normal Red Cell Distribution Width S[facility] ([facility]) mean corpuscular HGB conc 31.7 g/dL 32.0-36.5 Below low ryann l Mean Corpuscular HGB Conc S[facility] ([facility]) platelet count, automated 238 10 150-450 normal Platelet C ount, Automated S[place] ([facility]) neutrophils % 74.0 % 36.0-66.0 Above high normal Neutrophils % A THENA ([facility]) mono % 9.1 % 0.0-5.0 Above high normal [place] % [place] ([facility]) lymph % 16.2 % 24.0-44.0 Below low normal Lymph % S[place] ( [facility]) eos % 0.0 % 0.0-3.0 normal Eos % P[facility]Y ([facility]) baso % 0.3 % 0.0-1.0 normal Baso % PERRY ([facility]) immature granulocyte % 0.4 % 0-3.0 normal Immature Gran ulocyte % S[facility] ([facility]) nucleated red blood cell % 0.0 % 0-0 normal Nucleated Red Blood Cell % S[facility] ([facility]) neutrophils # 7.3 10 1.5-8.5 normal Neutrophils # S[place]AGE ( [facility]) lymph # 1.6 10 1.5-5.0 normal Lymph # [place] ([facility]) mono # 0.9 10 0.0-0.8 Above high normal [place] # [facility] ([facility]) eos # 0.0 10 0.0-0.5 normal Eos # [place] ([facility]) baso # 0.0 10 0.0-0.2 normal Baso # [facility] ([facility]) ID Date Data Source [id number] 09/16/2020 05:16:00 AM EST PERRY ([facility]) Name Value Range Interpretation Code Description Data Ariane rce(s) Supporting Document(s) ABG pH (arterial) 7.375 units 7.350-7.450 normal ABG pH (Arterial ) S[facility] ([facility]) ABG total CO2 23.5 mEq/L 22.0-29.0 normal ABG Total CO2 [place] ( [facility]) ABG partial pressure CO2 39.0 mmHg 35.0-45.0 normal ABG Partial Pressure CO2 [place] ([facility]) ABG partial pressure O2 149.4 mmHg 75.0-100.0 Above high normal ABG Partial Pressure O2 [place] ([facility]) ABG HCO3 22.3 mEq/L 22.0-26.0 normal Abg Hco3 PERRY ([facility]) ABG base excess -2.0-2.0 Below low normal ABG Base Exces s [place] ([facility]) ABG O2 saturation 99.1 % 95.0-99.0 Above high normal ABG O2 Satu ration [facility] ([facility]) ABG standard HCO3 22.3 mEq/L 22.0-26.0 normal ABG Standard HCO3 [facility]Y ([facility]) ID Date Data Source [id number] 09/16/2020 05:16:00 AM EST PERRY ([facility]) Name Value Range Interpretation Code Description Data Ariane rce(s) Supporting Document(s) glucose, fasting 101 mg/dL 70-100 Above high normal Glucose, Fas ting PERRY ([facility]) creatinine for GFR 0.58 mg/dL 0.55-1.30 normal Creatinine for GF R PERRY ([facility]) blood urea nitrogen 11 mg/dL 7-18 normal Blood Urea Nitro gen [place] ([facility]) glomerular filtration rate > 60.0 >51 normal Glomerula r Filtration Rate S[facility] ([facility]) sodium level 141 mEq/L 136-145 normal Sodium Level [facility] (No [facility]) chloride level 111 mEq/L 98-107 Above high normal Chloride Level [facility] ([facility]) potassium serum 4.1 mEq/L 3.5-5.1 normal Potassium Serum ATH NA ([facility]) carbon dioxide level 23 mEq/L 21-32 normal Carbon Dioxide Level PERRY ([facility]) anion gap 7 mEq/L 8-16 Below low normal Anion Gap PERRY ( [facility]) calcium level 7.9 mg/dL 8.5-10.1 Below low normal Calcium Level AT [facility] ([facility]) ID Date Data Source [id number] 09/16/2020 05:16:00 AM EST PERRY ([facility]) Name Value Range Interpretation Code Description Data Ariane rce(s) Supporting Document(s) red blood count 3.20 10 4.00-5.40 Below low normal Red Blood Coun t PERRY ([facility]) white blood count 9.9 10 4.0-10.0 normal White Blood Count PERR[facility] ([facility]) hematocrit 31.2 % 36.0-47.0 Below low normal Hematocrit PERRY ( [facility]) hemoglobin 9.9 g/dL 12.0-15.5 Below low normal Hemoglobin PERRY ( [facility]) mean corpuscular hemoglobin 30.9 pg 27.0-33.0 normal Mean Corpuscular Hemoglobin PERRY ([facility]) mean corpuscular volume 97.5 fL 80.0-96.0 Above high normal Mean Corpuscular Volume PERRY ([facility]) mean corpuscular HGB conc 31.7 g/dL 32.0-36.5 Below low ryann l Mean Corpuscular HGB Conc PERR[facility] ([facility]) red cell distribution width 13.2 % 11.5-14.5 normal Red Cell Distribution Width [facility] ([facility]) platelet count, automated 238 10 150-450 normal Platelet C ount, Automated PERR[facility] ([facility]) neutrophils % 74.0 % 36.0-66.0 Above high normal Neutrophils % A THENA ([facility]) lymph % 16.2 % 24.0-44.0 Below low normal Lymph % PERRY ( [facility]) mono % 9.1 % 0.0-5.0 Above high normal [place] % [place] ([facility]) baso % 0.3 % 0.0-1.0 normal Baso % [place] ([facility]) eos % 0.0 % 0.0-3.0 normal Eos % [place] ([facility]) nucleated red blood cell % 0.0 % 0-0 normal Nucleated Red Blood Cell % [facility] ([facility]) immature granulocyte % 0.4 % 0-3.0 normal Immature Gran ulocyte % [facility] ([facility]) lymph # 1.6 10 1.5-5.0 normal Lymph # [place] ([facility]) mono # 0.9 10 0.0-0.8 Above high normal [place] # [facility] ([facility]) neutrophils # 7.3 10 1.5-8.5 normal Neutrophils # [place] ( [facility]) eos # 0.0 10 0.0-0.5 normal Eos # [facility] ([facility]) baso # 0.0 10 0.0-0.2 normal Baso # [place] ([facility]) ID Date Data Source [id number] 09/16/2020 05:16:00 AM EST PERRY ([facility]) Name Value Range Interpretation Code Description Data Ariane rce(s) Supporting Document(s) ABG pH (arterial) 7.375 units 7.350-7.450 normal ABG pH (Arterial ) [facility]ERRY ([facility]) ABG partial pressure CO2 39.0 mmHg 35.0-45.0 normal ABG Partial Pressure CO2 [facility] ([facility]) ABG partial pressure O2 149.4 mmHg 75.0-100.0 Above high normal ABG Partial Pressure O2 [facility] ([facility]) ABG total CO2 23.5 mEq/L 22.0-29.0 normal ABG Total CO2 P[facility] ( [facility]) ABG HCO3 22.3 mEq/L 22.0-26.0 normal Abg Hco3 [facility] ([facility]) ABG base excess -2.0-2.0 Below low normal ABG Base Exces s [facility]ERR[facility] ([facility]) ABG standard HCO3 22.3 mEq/L 22.0-26.0 normal ABG Standard HCO3 [facility] ([facility]) ABG O2 saturation 99.1 % 95.0-99.0 Above high normal ABG O2 Satu ration [facility] ([facility]) ID Date Data Source [id number] 09/16/2020 05:16:00 AM EST [place] ([facility]) Name Value Range Interpretation Code Description Data Ariane rce(s) Supporting Document(s) glucose, fasting 101 mg/dL 70-100 Above high normal Glucose, Fas ting PERRY ([facility]) blood urea nitrogen 11 mg/dL 7-18 normal Blood Urea Nitro gen PERRY ([facility]) creatinine for GFR 0.58 mg/dL 0.55-1.30 normal Creatinine for GF R PERRY ([facility]) glomerular filtration rate > 60.0 >51 normal Glomerula r Filtration Rate PERRY ([facility]) sodium level 141 mEq/L 136-145 normal Sodium Level [facility] (No [facility]) chloride level 111 mEq/L 98-107 Above high normal Chloride Level PERRY ([facility]) potassium serum 4.1 mEq/L 3.5-5.1 normal Potassium Serum ATH NA ([facility]) anion gap 7 mEq/L 8-16 Below low normal Anion Gap PERRY ( [facility]) carbon dioxide level 23 mEq/L 21-32 normal Carbon Dioxide Level PERRY ([facility]) calcium level 7.9 mg/dL 8.5-10.1 Below low normal Calcium Level AT [facility] ([facility]) ID Date Data Source [id number] 09/16/2020 05:16:00 AM EST [place] ([facility]) Name Value Range Interpretation Code Description Data Ariane rce(s) Supporting Document(s) white blood count 9.9 10 4.0-10.0 normal White Blood Count PERRY ([facility]) red blood count 3.20 10 4.00-5.40 Below low normal Red Blood Coun t PERRY ([facility]) hematocrit 31.2 % 36.0-47.0 Below low normal Hematocrit PERRY ( [facility]) hemoglobin 9.9 g/dL 12.0-15.5 Below low normal Hemoglobin PERRY ( [facility]) mean corpuscular hemoglobin 30.9 pg 27.0-33.0 normal Mean Corpuscular Hemoglobin [place] ([facility]) mean corpuscular volume 97.5 fL 80.0-96.0 Above high normal Mean Corpuscular Volume [facility] ([facility]) mean corpuscular HGB conc 31.7 g/dL 32.0-36.5 Below low ryann l Mean Corpuscular HGB Conc [facility] ([facility]) red cell distribution width 13.2 % 11.5-14.5 normal Red Cell Distribution Width [facility] ([facility]) neutrophils % 74.0 % 36.0-66.0 Above high normal Neutrophils % A THENA ([facility]) platelet count, automated 238 10 150-450 normal Platelet C ount, Automated [place] ([facility]) lymph % 16.2 % 24.0-44.0 Below low normal Lymph % PERRY ( [facility]) mono % 9.1 % 0.0-5.0 Above high normal [place] % [place] ([facility]) baso % 0.3 % 0.0-1.0 normal Baso % [place] ([facility]) eos % 0.0 % 0.0-3.0 normal Eos % [place] ([facility]) nucleated red blood cell % 0.0 % 0-0 normal Nucleated Red Blood Cell % [facility] ([facility]) immature granulocyte % 0.4 % 0-3.0 normal Immature Gran ulocyte % [facility] ([facility]) neutrophils # 7.3 10 1.5-8.5 normal Neutrophils # [place] ( [facility]) lymph # 1.6 10 1.5-5.0 normal Lymph # [place] ([facility]) mono # 0.9 10 0.0-0.8 Above high normal [place] # [facility] ([facility]) eos # 0.0 10 0.0-0.5 normal Eos # [place] ([facility]) baso # 0.0 10 0.0-0.2 normal Baso # [place] ([facility]) ID Date Data Source [id number] 09/16/2020 05:16:00 AM EST [place] ([facility]) Name Value Range Interpretation Code Description Data Ariane rce(s) Supporting Document(s) ABG pH (arterial) 7.375 units 7.350-7.450 normal ABG pH (Arterial ) P[facility]Y ([facility]) ABG partial pressure CO2 39.0 mmHg 35.0-45.0 normal ABG Partial Pressure CO2 [facility] ([facility]) ABG partial pressure O2 149.4 mmHg 75.0-100.0 Above high normal ABG Partial Pressure O2 [facility] ([facility]) ABG total CO2 23.5 mEq/L 22.0-29.0 normal ABG Total CO2 P[facility] ( [facility]) ABG HCO3 22.3 mEq/L 22.0-26.0 normal Abg Hco3 [facility]) ABG base excess -2.0-2.0 Below low normal ABG Base Exces s [facility]ERR[facility] ([facility]) ABG O2 saturation 99.1 % 95.0-99.0 Above high normal ABG O2 Satu ration PERRY ([facility]) ABG standard HCO3 22.3 mEq/L 22.0-26.0 normal ABG Standard HCO3 [facility] ([facility]) ID Date Data Source [id number] 09/16/2020 05:16:00 AM EST [place] ([facility]) Name Value Range Interpretation Code Description Data Ariane rce(s) Supporting Document(s) glucose, fasting 101 mg/dL 70-100 Above high normal Glucose, Fas ting PERRY ([facility]) blood urea nitrogen 11 mg/dL 7-18 normal Blood Urea Nitro gen [place] ([facility]) creatinine for GFR 0.58 mg/dL 0.55-1.30 normal Creatinine for GF R PERRY ([facility]) potassium serum 4.1 mEq/L 3.5-5.1 normal Potassium Serum ATHE NA ([facility]) glomerular filtration rate > 60.0 >51 normal Glomerula r Filtration Rate [place] ([facility]) sodium level 141 mEq/L 136-145 normal Sodium Level [facility] (No [facility]) carbon dioxide level 23 mEq/L 21-32 normal Carbon Dioxide Level [place] ([facility]) chloride level 111 mEq/L 98-107 Above high normal Chloride Level PERRY ([facility]) anion gap 7 mEq/L 8-16 Below low normal Anion Gap PERRY ( [facility]) calcium level 7.9 mg/dL 8.5-10.1 Below low normal Calcium Level AT [facility]) ID Date Data Source [id number] 09/16/2020 05:16:00 AM EST [facility]) Name Value Range Interpretation Code Description Data Ariane rce(s) Supporting Document(s) white blood count 9.9 10 4.0-10.0 normal White Blood Count PERRY ([facility]) red blood count 3.20 10 4.00-5.40 Below low normal Red Blood Coun t PERRY ([facility]) hematocrit 31.2 % 36.0-47.0 Below low normal Hematocrit [place] ( [facility]) hemoglobin 9.9 g/dL 12.0-15.5 Below low normal Hemoglobin PERRY ( [facility]) mean corpuscular HGB conc 31.7 g/dL 32.0-36.5 Below low ryann l Mean Corpuscular HGB Conc PERRY ([facility]) mean corpuscular volume 97.5 fL 80.0-96.0 Above high normal Mean Corpuscular Volume [place] ([facility]) mean corpuscular hemoglobin 30.9 pg 27.0-33.0 normal Mean Corpuscular Hemoglobin [facility] ([facility]) platelet count, automated 238 10 150-450 normal [facility] red cell distribution width 13.2 % 11.5-14.5 normal Red Cell Distribution Width [facility]) neutrophils % 74.0 % 36.0-66.0 Above high normal Neutrophils % A THENA [facility]) mono % 9.1 % 0.0-5.0 Above high normal [place] % [place] ([facility]) lymph % 16.2 % 24.0-44.0 Below low normal Lymph % [place] ( [facility]) eos % 0.0 % 0.0-3.0 normal Eos % [place] ([facility]) baso % 0.3 % 0.0-1.0 normal Baso % [place] ([facility]) nucleated red blood cell % 0.0 % 0-0 normal Nucleated Red Blood Cell % [facility] ([facility]) immature granulocyte % 0.4 % 0-3.0 normal Immature Gran ulocyte % [place] ([facility]) neutrophils # 7.3 10 1.5-8.5 normal Neutrophils # [place] ( [facility]) mono # 0.9 10 0.0-0.8 Above high normal [place] # PERRY ([facility]) lymph # 1.6 10 1.5-5.0 normal Lymph # [place] ([facility]) baso # 0.0 10 0.0-0.2 normal Baso # [place] ([facility]) eos # 0.0 10 0.0-0.5 normal Eos # [place] ([facility]) ID Date Data Source [id number] 09/16/2020 05:16:00 AM EST PERRY ([facility]) Name Value Range Interpretation Code Description Data Ariane rce(s) Supporting Document(s) ABG pH (arterial) 7.375 units 7.350-7.450 normal ABG pH (Arterial ) [facility] ([facility]) ABG partial pressure O2 149.4 mmHg 75.0-100.0 Above high normal ABG Partial Pressure O2 [place] ([facility]) ABG partial pressure CO2 39.0 mmHg 35.0-45.0 normal ABG Partial Pressure CO2 [place] ([facility]) ABG HCO3 22.3 mEq/L 22.0-26.0 normal Abg Hco3 [facility] ([facility]) ABG total CO2 23.5 mEq/L 22.0-29.0 normal ABG Total CO2 [place] ( [facility]) ABG standard HCO3 22.3 mEq/L 22.0-26.0 normal ABG Standard HCO3 [place] ([facility]) ABG base excess -2.0-2.0 Below low normal ABG Base Exces s [place] ([facility]) ABG O2 saturation 99.1 % 95.0-99.0 Above high normal ABG O2 Satu ration [facility]ERR[facility] ([facility]) ID Date Data Source [id number] 09/15/2020 11:50:00 AM EST [facility]ERR[facility] ([facility]) Name Value Range Interpretation Code Description Data Ariane rce(s) Supporting Document(s) blood urea nitrogen 15 mg/dL 7-18 normal Blood Urea Nitro gen [place] ([facility]) glucose, fasting 146 mg/dL 70-100 Above high normal Glucose, Fas ting PERRY ([facility]) glomerular filtration rate > 60.0 >51 normal Glomerula r Filtration Rate PERRY ([facility]) creatinine for GFR 0.60 mg/dL 0.55-1.30 normal Creatinine for GF R [facility]Y ([facility]) sodium level 137 mEq/L 136-145 normal Sodium Level PERRY (No [facility]) potassium serum 4.1 mEq/L 3.5-5.1 normal Potassium Serum ATH NA ([facility]) chloride level 110 mEq/L 98-107 Above high normal Chloride Level PERRY ([facility]) carbon dioxide level 23 mEq/L 21-32 normal Carbon Dioxide Level [facility]ERRY ([facility]) calcium level 8.3 mg/dL 8.5-10.1 Below low normal Calcium Level AT [facility]) anion gap 4 mEq/L 8-16 Below low normal Anion Gap PERRY ( [facility]) ID Date Data Source [id number] 09/15/2020 11:50:00 AM EST PERR[facility] ([facility]) Name Value Range Interpretation Code Description Data Ariane rce(s) Supporting Document(s) ABG pH (arterial) 7.266 units 7.350-7.450 Below low normal ABG pH (Ar terial) [facility] ([facility]) ABG partial pressure CO2 47.1 mmHg 35.0-45.0 Above high ryann l ABG Partial Pressure CO2 [facility] ([facility]) ABG partial pressure O2 76.3 mmHg 75.0-100.0 normal ABG Partial Pressure O2 [facility] ([facility]) ABG HCO3 20.9 mEq/L 22.0-26.0 Below low normal Abg Hco3 [place] ( [facility]) ABG total CO2 22.4 mEq/L 22.0-29.0 normal ABG Total CO2 [place] ( [facility]) ABG base excess -2.0-2.0 Below low normal ABG Base Exces s [place] ([facility]) ABG standard HCO3 19.5 mEq/L 22.0-26.0 Below low normal ABG Standard HCO3 [facility] ([facility]) ABG O2 saturation 93.8 % 95.0-99.0 Below low normal ABG O2 Satur ation [facility] ([facility]) ID Date Data Source [id number] 09/15/2020 11:50:00 AM EST [facility]ERR[facility] ([facility]) Name Value Range Interpretation Code Description Data Ariane rce(s) Supporting Document(s) red blood count 3.79 10 4.00-5.40 Below low normal Red Blood Coun t [place] ([facility]) white blood count 14.6 10 4.0-10.0 Above high normal White Blood Count [facility] ([facility]) hematocrit 36.9 % 36.0-47.0 normal Hematocrit [facility] ([facility]) hemoglobin 12.2 g/dL 12.0-15.5 normal Hemoglobin [facility] ([facility]) mean corpuscular volume 97.4 fL 80.0-96.0 Above high normal Mean Corpuscular Volume [facility] ([facility]) mean corpuscular hemoglobin 32.2 pg 27.0-33.0 normal Mean Corpuscular Hemoglobin [place] ([facility]) mean corpuscular HGB conc 33.1 g/dL 32.0-36.5 normal Mean Corpu scular HGB Conc [facility] ([facility]) red cell distribution width 13.2 % 11.5-14.5 normal Red Cell Distribution Width [facility] ([facility]) platelet count, automated 239 10 150-450 normal Platelet C ount, Automated [place] ([facility]) lymph % 4.2 % 24.0-44.0 Below low normal Lymph % [place] ( [facility]) neutrophils % 93.1 % 36.0-66.0 Above high normal Neutrophils % A THENA ([facility]) mono % 1.6 % 0.0-5.0 normal [place] % [facility] ([facility]) eos % 0.1 % 0.0-3.0 normal Eos % [facility] ([facility]) baso % 0.5 % 0.0-1.0 normal Baso % [place] ([facility]) nucleated red blood cell % 0.0 % 0-0 normal Nucleated Red Blood Cell % [facility] ([facility]) immature granulocyte % 0.5 % 0-3.0 normal Immature Gran ulocyte % [facility] ([facility]) mono # 0.2 10 0.0-0.8 normal [place] # [facility] ([facility]) lymph # 0.6 10 1.5-5.0 Below low normal Lymph # [place] ( [facility]) neutrophils # 13.7 10 1.5-8.5 Above high normal Neutrophils # A THENA ([facility]) baso # 0.1 10 0.0-0.2 normal Baso # [place] ([facility]) eos # 0.0 10 0.0-0.5 normal Eos # [place] ([facility]) ID Date Data Source [id number] 09/15/2020 11:50:00 AM EST [place] ([facility]) Name Value Range Interpretation Code Description Data Ariane rce(s) Supporting Document(s) creatinine for GFR 0.60 mg/dL 0.55-1.30 normal Creatinine for GF R [place] ([facility]) glucose, fasting 146 mg/dL 70-100 Above high normal Glucose, Fas ting [place] ([facility]) blood urea nitrogen 15 mg/dL 7-18 normal Blood Urea Nitro gen [place] ([facility]) sodium level 137 mEq/L 136-145 normal Sodium Level [facility] (No [facility]) glomerular filtration rate > 60.0 >51 normal Glomerula r Filtration Rate [place] ([facility]) potassium serum 4.1 mEq/L 3.5-5.1 normal Potassium Serum ATHE NA ([facility]) chloride level 110 mEq/L 98-107 Above high normal Chloride Level [place] ([facility]) anion gap 4 mEq/L 8-16 Below low normal Anion Gap PERRY ( [facility]) carbon dioxide level 23 mEq/L 21-32 normal Carbon Dioxide Level PERRY ([facility]) calcium level 8.3 mg/dL 8.5-10.1 Below low normal Calcium Level AT [facility]) ID Date Data Source [id number] 09/15/2020 11:50:00 AM EST [facility]) Name Value Range Interpretation Code Description Data Ariane rce(s) Supporting Document(s) ABG partial pressure O2 76.3 mmHg 75.0-100.0 normal ABG Partial Pressure O2 P[facility] ([facility]) ABG pH (arterial) 7.266 units 7.350-7.450 Below low normal ABG pH (Ar terial) [facility] ([facility]) ABG partial pressure CO2 47.1 mmHg 35.0-45.0 Above high ryann l ABG Partial Pressure CO2 [facility] [facility] ABG HCO3 20.9 mEq/L 22.0-26.0 Below low normal Abg Hco3 [place] ( [facility]) ABG total CO2 22.4 mEq/L 22.0-29.0 normal ABG Total CO2 [place] ( [facility]) ABG standard HCO3 19.5 mEq/L 22.0-26.0 Below low normal ABG Standard HCO3 [facility] ([facility]) ABG base excess -2.0-2.0 Below low normal ABG Base Exces s [place] ([facility]) ABG O2 saturation 93.8 % 95.0-99.0 Below low normal ABG O2 Satur ation [facility] ([facility]) ID Date Data Source [id number] 09/15/2020 11:50:00 AM EST P[facility] ([facility]) Name Value Range Interpretation Code Description Data Ariane rce(s) Supporting Document(s) white blood count 14.6 10 4.0-10.0 Above high normal White Blood Count [place] ([facility]) red blood count 3.79 10 4.00-5.40 Below low normal Red Blood Coun t [facility] ([facility]) hemoglobin 12.2 g/dL 12.0-15.5 normal Hemoglobin [facility] ([facility]) hematocrit 36.9 % 36.0-47.0 normal Hematocrit [facility] ([facility]) mean corpuscular volume 97.4 fL 80.0-96.0 Above high normal Mean Corpuscular Volume [place] ([facility]) mean corpuscular HGB conc 33.1 g/dL 32.0-36.5 normal Mean Corpu scular HGB Conc [facility] ([facility]) mean corpuscular hemoglobin 32.2 pg 27.0-33.0 normal Mean Corpuscular Hemoglobin [facility] ([facility]) platelet count, automated 239 10 150-450 normal Platelet C ount, Automated [place] ([facility]) neutrophils % 93.1 % 36.0-66.0 Above high normal Neutrophils % A [place] ([facility]) red cell distribution width 13.2 % 11.5-14.5 normal Red Cell Distribution Width [place] ([facility]) eos % 0.1 % 0.0-3.0 normal Eos % [facility] ([facility]) lymph % 4.2 % 24.0-44.0 Below low normal Lymph % [place] ( [facility]) mono % 1.6 % 0.0-5.0 normal [place] % [facility] ([facility]) immature granulocyte % 0.5 % 0-3.0 normal Immature Gran ulocyte % [place] ([facility]) nucleated red blood cell % 0.0 % 0-0 normal Nucleated Red Blood Cell % [place] ([facility]) baso % 0.5 % 0.0-1.0 normal Baso % [facility] ([facility]) neutrophils # 13.7 10 1.5-8.5 Above high normal Neutrophils # A THENA ([facility]) lymph # 0.6 10 1.5-5.0 Below low normal Lymph # [place] ( [facility]) mono # 0.2 10 0.0-0.8 normal [place] # [place] ([facility]) baso # 0.1 10 0.0-0.2 normal Baso # [place] ([facility]) eos # 0.0 10 0.0-0.5 normal Eos # [facility] ([facility]) ID Date Data Source [id number] 09/15/2020 11:50:00 AM EST [facility] ([facility]) Name Value Range Interpretation Code Description Data Ariane rce(s) Supporting Document(s) glucose, fasting 146 mg/dL 70-100 Above high normal Glucose, Fas ting [facility] ([facility]) blood urea nitrogen 15 mg/dL 7-18 normal Blood Urea Nitro gen [facility] ([facility]) creatinine for GFR 0.60 mg/dL 0.55-1.30 normal Creatinine for GF R [facility] ([facility]) glomerular filtration rate > 60.0 >51 normal Glomerula r Filtration Rate [facility] ([facility]) sodium level 137 mEq/L 136-145 normal Sodium Level [facility] ([facility]) potassium serum 4.1 mEq/L 3.5-5.1 normal Potassium Serum ATH NA ([facility]) chloride level 110 mEq/L 98-107 Above high normal Chloride Level [facility] ([facility]) carbon dioxide level 23 mEq/L 21-32 normal Carbon Dioxide Level [facility] ([facility]) calcium level 8.3 mg/dL 8.5-10.1 Below low normal Calcium Level AT [place] ([facility]) anion gap 4 mEq/L 8-16 Below low normal Anion Gap [place] ( [facility]) ID Date Data Source [id number] 09/15/2020 11:50:00 AM EST [place] ([facility]) Name Value Range Interpretation Code Description Data Ariane rce(s) Supporting Document(s) ABG pH (arterial) 7.266 units 7.350-7.450 Below low normal ABG pH (Ar terial) [place] ([facility]) ABG partial pressure O2 76.3 mmHg 75.0-100.0 normal ABG Partial Pressure O2 [facility] ([facility]) ABG partial pressure CO2 47.1 mmHg 35.0-45.0 Above high ryann l ABG Partial Pressure CO2 [place] ([facility]) ABG base excess -2.0-2.0 Below low normal ABG Base Exces s [facility] ([facility]) ABG total CO2 22.4 mEq/L 22.0-29.0 normal ABG Total CO2 [place] ( [facility]) ABG HCO3 20.9 mEq/L 22.0-26.0 Below low normal Abg Hco3 [facility] ( [facility]) ABG O2 saturation 93.8 % 95.0-99.0 Below low normal ABG O2 Satur ation [place] ([facility]) ABG standard HCO3 19.5 mEq/L 22.0-26.0 Below low normal ABG Standard HCO3 [place] ([facility]) ID Date Data Source [id number] 09/15/2020 11:50:00 AM EST [facility] ([facility]) Name Value Range Interpretation Code Description Data Ariane rce(s) Supporting Document(s) red blood count 3.79 10 4.00-5.40 Below low normal Red Blood Coun t [place] ([facility]) white blood count 14.6 10 4.0-10.0 Above high normal White Blood Count [place] ([facility]) hemoglobin 12.2 g/dL 12.0-15.5 normal Hemoglobin [place] ([facility]) hematocrit 36.9 % 36.0-47.0 normal Hematocrit [place] ([facility]) mean corpuscular HGB conc 33.1 g/dL 32.0-36.5 normal Mean Corpu scular HGB Conc [place] ([facility]) mean corpuscular hemoglobin 32.2 pg 27.0-33.0 normal Mean Corpuscular Hemoglobin [place] ([facility]) mean corpuscular volume 97.4 fL 80.0-96.0 Above high normal Mean Corpuscular Volume [place] ([facility]) platelet count, automated 239 10 150-450 normal Platelet C ount, Automated [place] ([facility]) red cell distribution width 13.2 % 11.5-14.5 normal Red Cell Distribution Width [place] ([facility]) lymph % 4.2 % 24.0-44.0 Below low normal Lymph % [place] ( [facility]) neutrophils % 93.1 % 36.0-66.0 Above high normal [facility]rophils % [facility] mono % 1.6 % 0.0-5.0 normal [place] % [place] ([facility]) eos % 0.1 % 0.0-3.0 normal Eos % [place] ([facility]) baso % 0.5 % 0.0-1.0 normal Baso % [place] ([facility]) immature granulocyte % 0.5 % 0-3.0 normal Immature Gran ulocyte % [place] ([facility]) neutrophils # 13.7 10 1.5-8.5 Above high normal Neutrophils # [facility] nucleated red blood cell % 0.0 % 0-0 normal Nucleated Red Blood Cell % [place] ([facility]) eos # 0.0 10 0.0-0.5 normal Eos # [place] ([facility]) mono # 0.2 10 0.0-0.8 normal [place] # [place] ([facility]) lymph # 0.6 10 1.5-5.0 Below low normal Lymph # [place] ( [facility]) baso # 0.1 10 0.0-0.2 normal Baso # [place] ([facility]) ID Date Data Source [id number] 09/15/2020 11:50:00 AM GIULIA WAN ([facility]) Name Value Range Interpretation Code Description Data Ariane rce(s) Supporting Document(s) glucose, fasting 146 mg/dL 70-100 Above high normal Glucose, Fas ting [facility] ([facility]) blood urea nitrogen 15 mg/dL 7-18 normal Blood Urea Nitro gen [place] ([facility]) creatinine for GFR 0.60 mg/dL 0.55-1.30 normal Creatinine for GF R [facility] ([facility]) glomerular filtration rate > 60.0 >51 normal [place]omer[place] r Filtration Rate [facility] ([facility]) sodium level 137 mEq/L 136-145 normal Sodium Level [facility] (No [facility]) potassium serum 4.1 mEq/L 3.5-5.1 normal Potassium Serum ATH NA ([facility]) chloride level 110 mEq/L 98-107 Above high normal Chloride Level [facility] ([facility]) carbon dioxide level 23 mEq/L 21-32 normal Carbon Dioxide Level [facility] ([facility]) anion gap 4 mEq/L 8-16 Below low normal Anion Gap [facility] ( [facility]) calcium level 8.3 mg/dL 8.5-10.1 Below low normal Calcium Level AT [facility]) ID Date Data Source [id number] 09/15/2020 11:50:00 AM EST [place] ([facility]) Name Value Range Interpretation Code Description Data Ariane rce(s) Supporting Document(s) ABG pH (arterial) 7.266 units 7.350-7.450 Below low normal ABG pH (Ar terial) [facility] ([facility]) ABG partial pressure CO2 47.1 mmHg 35.0-45.0 Above high ryann l ABG Partial Pressure CO2 [facility] ([facility]) ABG partial pressure O2 76.3 mmHg 75.0-100.0 normal ABG Partial Pressure O2 [facility] ([facility]) ABG total CO2 22.4 mEq/L 22.0-29.0 normal ABG Total CO2 [place] ( [facility]) ABG HCO3 20.9 mEq/L 22.0-26.0 Below low normal Abg Hco3 [place] ( [facility]) ABG base excess -2.0-2.0 Below low normal ABG Base Exces s [place] ([facility]) ABG standard HCO3 19.5 mEq/L 22.0-26.0 Below low normal ABG Standard HCO3 [place] ([facility]) ABG O2 saturation 93.8 % 95.0-99.0 Below low normal ABG O2 Satur ation [place] ([facility]) ID Date Data Source [id number] 09/15/2020 11:50:00 AM EST [facility]) Name Value Range Interpretation Code Description Data Ariane rce(s) Supporting Document(s) white blood count 14.6 10 4.0-10.0 Above high normal White Blood Count [place] ([facility]) red blood count 3.79 10 4.00-5.40 Below low normal Red Blood Coun t [facility] ([facility]) hemoglobin 12.2 g/dL 12.0-15.5 normal Hemoglobin [facility] ([facility]) hematocrit 36.9 % 36.0-47.0 normal Hematocrit [facility]) mean corpuscular volume 97.4 fL 80.0-96.0 Above high normal Mean Corpuscular Volume [place] ([facility]) mean corpuscular hemoglobin 32.2 pg 27.0-33.0 normal Mean Corpuscular Hemoglobin [place] ([facility]) mean corpuscular HGB conc 33.1 g/dL 32.0-36.5 normal Mean Corpu scular HGB Conc [facility] ([facility]) red cell distribution width 13.2 % 11.5-14.5 normal Red Cell Distribution Width [facility] ([facility]) platelet count, automated 239 10 150-450 normal Platelet C ount, Automated [place] ([facility]) lymph % 4.2 % 24.0-44.0 Below low normal Lymph % [place] ( [facility]) neutrophils % 93.1 % 36.0-66.0 Above high normal Neutrophils % A THE[place] ([facility]) eos % 0.1 % 0.0-3.0 normal Eos % [place] ([facility]) mono % 1.6 % 0.0-5.0 normal [place] % [place] ([facility]) baso % 0.5 % 0.0-1.0 normal Baso % [place] ([facility]) nucleated red blood cell % 0.0 % 0-0 normal Nucleated Red Blood Cell % [place] ([facility]) immature granulocyte % 0.5 % 0-3.0 normal Immature Gran ulocyte % [place] ([facility]) lymph # 0.6 10 1.5-5.0 Below low normal Lymph # [place] ( [facility]) neutrophils # 13.7 10 1.5-8.5 Above high normal Neutrophils # A THENA ([facility]) mono # 0.2 10 0.0-0.8 normal [place] # [place] ([facility]) baso # 0.1 10 0.0-0.2 normal Baso # [place] ([facility]) eos # 0.0 10 0.0-0.5 normal Eos # [place] ([facility]) ID Date Data Source [id number] 09/15/2020 06:25:00 AM EST [place] ([facility]) Name Value Range Interpretation Code Description Data Ariane rce(s) Supporting Document(s) blood type A positive normal Blood Type [place] ([facility]) Ab screen (indirect ronal)vis negative normal Ab Sc reen (Indirect Ronal)vis [place] ([facility]) ID Date Data Source [id number] 09/15/2020 06:25:00 AM EST [place] ([facility]) Name Value Range Interpretation Code Description Data Ariane rce(s) Supporting Document(s) blood type A positive normal Blood Type [place] ([facility]) Ab screen (indirect ronal)vis negative normal Ab Sc reen (Indirect Ronal)vis [place] ([facility]) ID Date Data Source [id number] 09/15/2020 06:25:00 AM EST [place] ([facility]) Name Value Range Interpretation Code Description Data Ariane rce(s) Supporting Document(s) blood type A positive normal Blood Type [place] ([facility]) Ab screen (indirect ronal)vis negative normal Ab Sc reen (Indirect Ronal)vis [facility] ([facility]) ID Date Data Source [id number] 09/15/2020 06:25:00 AM EST [facility]) Name Value Range Interpretation Code Description Data Ariane rce(s) Supporting Document(s) blood type A positive normal Blood Type [place] ([facility]) Ab screen (indirect ronal)vis negative normal Ab Sc reen (Indirect Ronal)vis [place] ([facility]) ID Date Data Source [id number] 09/13/2020 03[facility]00[facility]00 [facility] Name Value Range Interpretation Code Description Data Ariane rce(s) Supporting Document(s) ABG pH (arterial) 7.375 units 7.350-7.450 normal ABG pH (Arterial ) [place] ([facility]) ABG partial pressure CO2 32.0 mmHg 35.0-45.0 Below low normal ABG Partial Pressure CO2 [facility] ([facility]) ABG partial pressure O2 88.2 mmHg 75.0-100.0 normal ABG Partial Pressure O2 [place] ([facility]) ABG standard HCO3 19.6 mEq/L 22.0-26.0 Below low normal ABG Standard HCO3 [facility]) ABG total CO2 19.3 mEq/L 22.0-29.0 Below low normal ABG Total CO2 AT [facility]) ABG HCO3 18.3 mEq/L 22.0-26.0 Below low normal Abg Hco3 [place] ( [facility]) ABG base excess -2.0-2.0 Below low normal ABG Base Exces s [place] ([facility]) ABG O2 saturation 97.2 % 95.0-99.0 normal ABG O2 Saturation [place] ([facility]) ID Date Data Source [id number] 09/13/2020 03:00:00 PM EST [place] ([facility]) Name Value Range Interpretation Code Description Data Ariane rce(s) Supporting Document(s) ABG pH (arterial) 7.375 units 7.350-7.450 normal ABG pH (Arterial ) [facility] ([facility]) ABG partial pressure CO2 32.0 mmHg 35.0-45.0 Below low normal ABG Partial Pressure CO2 [facility] ([facility]) ABG partial pressure O2 88.2 mmHg 75.0-100.0 normal ABG Partial Pressure O2 [place] ([facility]) ABG base excess -2.0-2.0 Below low normal ABG Base Exces s [place] ([facility]) ABG HCO3 18.3 mEq/L 22.0-26.0 Below low normal Abg Hco3 [place] ( [facility]) ABG standard HCO3 19.6 mEq/L 22.0-26.0 Below low normal ABG Standard HCO3 [place] ([facility]) ABG total CO2 19.3 mEq/L 22.0-29.0 Below low normal ABG Total CO2 AT [place] ([facility]) ABG O2 saturation 97.2 % 95.0-99.0 normal ABG O2 Saturation [facility] ([facility]) ID Date Data Source [id number] 09/13/2020 03:00:00 PM EST [place] ([facility]) Name Value Range Interpretation Code Description Data Ariane rce(s) Supporting Document(s) ABG partial pressure CO2 32.0 mmHg 35.0-45.0 Below low normal ABG Partial Pressure CO2 [place] ([facility]) ABG pH (arterial) 7.375 units 7.350-7.450 normal ABG pH (Arterial ) [place] ([facility]) ABG standard HCO3 19.6 mEq/L 22.0-26.0 Below low normal ABG Standard HCO3 [place] ([facility]) ABG total CO2 19.3 mEq/L 22.0-29.0 Below low normal ABG Total CO2 AT [facility] ([facility]) ABG HCO3 18.3 mEq/L 22.0-26.0 Below low normal Abg Hco3 [place] ( [facility]) ABG base excess -2.0-2.0 Below low normal ABG Base Exces s [facility] ([facility]) ABG partial pressure O2 88.2 mmHg 75.0-100.0 normal ABG Partial Pressure O2 [facility] ([facility]) ABG O2 saturation 97.2 % 95.0-99.0 normal ABG O2 Saturation [facility] ([facility]) ID Date Data Source [id number] 09/13/2020 03:00:00 PM EST [place] ([facility]) Name Value Range Interpretation Code Description Data Ariane rce(s) Supporting Document(s) ABG pH (arterial) 7.375 units 7.350-7.450 normal ABG pH (Arterial ) [facility] ([facility]) ABG partial pressure O2 88.2 mmHg 75.0-100.0 normal ABG Partial Pressure O2 [place] ([facility]) ABG partial pressure CO2 32.0 mmHg 35.0-45.0 Below low normal ABG Partial Pressure CO2 [place] ([facility]) ABG total CO2 19.3 mEq/L 22.0-29.0 Below low normal ABG Total CO2 AT [facility] ([facility]) ABG HCO3 18.3 mEq/L 22.0-26.0 Below low normal Abg Hco3 [place] ( [facility]) ABG standard HCO3 19.6 mEq/L 22.0-26.0 Below low normal ABG Standard HCO3 [place] ([facility]) ABG O2 saturation 97.2 % 95.0-99.0 normal ABG O2 Saturation [place] ([facility]) ABG base excess -2.0-2.0 Below low normal ABG Base Exces s [place] ([facility]) ID Date Data Source [id number] 09/13/2020 03:00:00 PM EST [place] ([facility]) Name Value Range Interpretation Code Description Data Ariane rce(s) Supporting Document(s) ABG partial pressure CO2 32.0 mmHg 35.0-45.0 Below low normal ABG Partial Pressure CO2 [place] ([facility]) ABG pH (arterial) 7.375 units 7.350-7.450 normal ABG pH (Arterial ) [facility] ([facility]) ABG partial pressure O2 88.2 mmHg 75.0-100.0 normal ABG Partial Pressure O2 [facility] ([facility]) ABG total CO2 19.3 mEq/L 22.0-29.0 Below low normal ABG Total CO2 AT [facility] ([facility]) ABG HCO3 18.3 mEq/L 22.0-26.0 Below low normal Abg Hco3 [place] ( [facility]) ABG base excess -2.0-2.0 Below low normal ABG Base Exces s [place] ([facility]) ABG standard HCO3 19.6 mEq/L 22.0-26.0 Below low normal ABG Standard HCO3 [place] ([facility]) ABG O2 saturation 97.2 % 95.0-99.0 normal ABG O2 Saturation [facility] ([facility]) ID Date Data Source [id number] 09/13/2020 03:00:00 PM EST [facility] ([facility], ) Name Value Range Interpretation Code Description Data Ariane rce(s) Supporting Document(s) ABG pH (Arterial) 7.375 units 7.350-7.450 Normal (applie s to non-numeric results) [facility] ([facility], ) ABG Partial Pressure Co2 32.0 mmHg 35.0-45.0 Below low normal [facility] ([facility], ) ABG Partial Pressure O2 88.2 mmHg 75.0-100.0 Normal ( applies to non-numeric results) [facility] ([facility]) ABG Total Co2 19.3 meq/L 22.0-29.0 Below low normal MEDEN T ([facility]) ABG Base Excess -5.9 Below low normal MED E[facility] ([facility]) ABG Hco3 18.3 meq/L 22.0-26.0 Below low normal [facility] ( [facility]) ABG Standard Hco3 19.6 meq/L 22.0-26.0 Below low normal M EDENT ([facility]) ABG O2 Saturation 97.2 % 95.0-99.0 Normal (applies to non-numeri c results) [facility] ([facility]) ID Date Data Source [id number] 09/13/2020 02:21:00 PM EST PERR[facility] ([facility]) Name Value Range Interpretation Code Description Data Ariane rce(s) Supporting Document(s) color, urine yellow yellow normal Color, Urine [place] ([facility]) pH,urine 6.0 units 5.0-9.0 normal pH,urine [place] ([facility]) appearance, urine clear clear normal Appearance, Urine [place] ([facility]) protein, urine auto negative negative normal Protein, Urine A uto [place] ([facility]) glucose, urine (UA) auto negative negative normal Glucose, Ur ine (UA) Auto [place] ([facility]) ketone, urine auto negative negative normal Ketone, Urine Aut o [place] ([facility]) specific gravity urine auto 1.002-1.035 normal Specifi c [place] Urine Auto [place] ([facility]) nitrite, urine auto negative negative normal Nitrite, Urine A uto [place] ([facility]) urobilinogen, urine auto 0.2 mg/dL 0.0-2.0 normal Urobilinoge n, Urine Auto [place] ([facility]) bilirubin, urine auto negative negative normal Bilirubin, Uri ne Auto [place] ([facility]) WBC, urine auto 1 /hpf 0-3 normal WBC, Urine Auto ATHE NA ([facility]) leukocyte esterase, urine auto negative negative normal Leukocyte Esterase, Urine Auto SAVAEG ([facility]) RBC, urine auto 5 /hpf 0-3 Above high normal RBC, Urine Au to [place] ([facility]) blood, urine blood negative negative normal Blood, Urine Bloo d [place] ([facility]) squamous epithelial cell ur AU 1 /hpf 0-6 normal Squam ous Epithelial Cell Ur AU [place] ([facility]) bacteria, urine auto negative negative normal Bacteria, Urine Auto [place] ([facility]) mucus, urine small negative normal Mucus, Urine [place] ([facility]) hyaline cast, urine auto 0 /lpf 0-1 normal Hyaline Chris t, Urine Auto [place] ([facility]) ID Date Data Source [id number] 09/13/2020 02:21:00 PM EST [place] ([facility]) Name Value Range Interpretation Code Description Data Ariane rce(s) Supporting Document(s) color, urine yellow yellow normal Color, Urine [place] ([facility]) pH,urine 6.0 units 5.0-9.0 normal pH,urine [place] ([facility]) appearance, urine clear clear normal Appearance, Urine [place] ([facility]) protein, urine auto negative negative normal Protein, Urine A uto [place] ([facility]) ketone, urine auto negative negative normal Ketone, Urine Aut o [place] ([facility]) specific gravity urine auto 1.002-1.035 normal Specifi c [place] Urine Auto [place] ([facility]) glucose, urine (UA) auto negative negative normal Glucose, Ur ine (UA) Auto [place] ([facility]) nitrite, urine auto negative negative normal Nitrite, Urine A uto [place] ([facility]) bilirubin, urine auto negative negative normal Bilirubin, Uri ne Auto [place] ([facility]) urobilinogen, urine auto 0.2 mg/dL 0.0-2.0 normal Urobilinoge n, Urine Auto [place] ([facility]) blood, urine blood negative negative normal Blood, Urine Bloo d [place] ([facility]) WBC, urine auto 1 /hpf 0-3 normal WBC, Urine Auto [place]HE [place] ([facility]) leukocyte esterase, urine auto negative negative normal Leukocyte Esterase, Urine Auto [place] ([facility]) RBC, urine auto 5 /hpf 0-3 Above high normal RBC, Urine Au to [place] ([facility]) mucus, urine small negative normal Mucus, Urine [place] ([facility]) bacteria, urine auto negative negative normal Bacteria, Urine Auto [place] ([facility]) squamous epithelial cell ur AU 1 /hpf 0-6 normal Squam ous Epithelial Cell Ur AU [place] ([facility]) hyaline cast, urine auto 0 /lpf 0-1 normal Hyaline Chris t, Urine Auto [place] ([facility]) ID Date Data Source [id number] 09/13/2020 02:21:00 PM EST [place] ([facility]) Name Value Range Interpretation Code Description Data Ariane rce(s) Supporting Document(s) appearance, urine clear clear normal Appearance, Urine [place] ([facility]) pH,urine 6.0 units 5.0-9.0 normal pH,urine [place] ([facility]) color, urine yellow yellow normal Color, Urine [place] ([facility]) specific gravity urine auto 1.002-1.035 normal Specifi c [place] Urine Auto [place] ([facility]) protein, urine auto negative negative normal Protein, Urine A uto [place] ([facility]) glucose, urine (UA) auto negative negative normal Glucose, Ur ine (UA) Auto [place] ([facility]) ketone, urine auto negative negative normal Ketone, Urine Aut o [place] ([facility]) nitrite, urine auto negative negative normal Nitrite, Urine A uto [place] ([facility]) leukocyte esterase, urine auto negative negative normal Leukocyte Esterase, Urine Auto [place] ([facility]) urobilinogen, urine auto 0.2 mg/dL 0.0-2.0 normal Urobilinoge n, Urine Auto [place] ([facility]) bilirubin, urine auto negative negative normal Bilirubin, Uri ne Auto [place] ([facility]) WBC, urine auto 1 /hpf 0-3 normal WBC, Urine Auto [place] NA ([facility]) bacteria, urine auto negative negative normal Bacteria, Urine Auto [place] ([facility]) blood, urine blood negative negative normal Blood, Urine Bloo d [place] ([facility]) squamous epithelial cell ur AU 1 /hpf 0-6 normal Squam ous Epithelial Cell Ur AU [place] ([facility]) RBC, urine auto 5 /hpf 0-3 Above high normal RBC, Urine Au to [place] ([facility]) hyaline cast, urine auto 0 /lpf 0-1 normal Hyaline Chris t, Urine Auto [place] ([facility]) mucus, urine small negative normal Mucus, Urine [place] (No [facility]) ID Date Data Source [id number] 09/13/2020 02:21:00 PM EST [place] ([facility]) Name Value Range Interpretation Code Description Data Ariane rce(s) Supporting Document(s) pH,urine 6.0 units 5.0-9.0 normal pH,urine [place] ([facility]) appearance, urine clear clear normal Appearance, Urine [place] ([facility]) color, urine yellow yellow normal Color, Urine [place] ([facility]) protein, urine auto negative negative normal Protein, Urine A uto [place] ([facility]) glucose, urine (UA) auto negative negative normal Glucose, Ur ine (UA) Auto [place] ([facility]) specific gravity urine auto 1.002-1.035 normal Specifi c [place] Urine Auto [place] ([facility]) bilirubin, urine auto negative negative normal Bilirubin, Uri ne Auto [place] ([facility]) urobilinogen, urine auto 0.2 mg/dL 0.0-2.0 normal Urobilinoge n, Urine Auto [place] ([facility]) ketone, urine auto negative negative normal Ketone, Urine Aut o [place] ([facility]) leukocyte esterase, urine auto negative negative normal Leukocyte Esterase, Urine Auto [place] ([facility]) nitrite, urine auto negative negative normal Nitrite, Urine A uto [place] ([facility]) blood, urine blood negative negative normal Blood, Urine Bloo d [place] ([facility]) WBC, urine auto 1 /hpf 0-3 normal WBC, Urine Auto [place] ([facility]) RBC, urine auto 5 /hpf 0-3 Above high normal RBC, Urine Au to [place] ([facility]) bacteria, urine auto negative negative normal Bacteria, Urine Auto [place] ([facility]) squamous epithelial cell ur AU 1 /hpf 0-6 normal Squam ous Epithelial Cell Ur AU [place] ([facility]) hyaline cast, urine auto 0 /lpf 0-1 normal Hyaline Chris t, Urine Auto [place] ([facility]) mucus, urine small negative normal Mucus, Urine [place] (No [facility]) ID Date Data Source [id number] 09/13/2020 02:21:00 PM EST [place] ([facility]) Name Value Range Interpretation Code Description Data Ariane rce(s) Supporting Document(s) pH,urine 6.0 units 5.0-9.0 normal pH,urine [place] ([facility]) appearance, urine clear clear normal Appearance, Urine [place] ([facility]) color, urine yellow yellow normal Color, Urine [place] ([facility]) specific gravity urine auto 1.002-1.035 normal Specifi c [place] Urine Auto [place] ([facility]) protein, urine auto negative negative normal Protein, Urine A uto [place] ([facility]) ketone, urine auto negative negative normal Ketone, Urine Aut o [place] ([facility]) glucose, urine (UA) auto negative negative normal Glucose, Ur ine (UA) Auto [place] ([facility]) urobilinogen, urine auto 0.2 mg/dL 0.0-2.0 normal Urobilinoge n, Urine Auto [place] ([facility]) bilirubin, urine auto negative negative normal Bilirubin, Uri ne Auto [place] ([facility]) nitrite, urine auto negative negative normal Nitrite, Urine A uto [place] ([facility]) leukocyte esterase, urine auto negative negative normal Leukocyte Esterase, Urine Auto [place] ([facility]) WBC, urine auto 1 /hpf 0-3 normal WBC, Urine Auto [place] ([facility]) blood, urine blood negative negative normal Blood, Urine Bloo d [place] ([facility]) RBC, urine auto 5 /hpf 0-3 Above high normal RBC, Urine Au to [place] ([facility]) mucus, urine small negative normal Mucus, Urine [place] (No [facility]) hyaline cast, urine auto 0 /lpf 0-1 normal Hyaline Chris t, Urine Auto [place] ([facility]) bacteria, urine auto negative negative normal Bacteria, Urine Auto [place] ([facility]) squamous epithelial cell ur AU 1 /hpf 0-6 normal Squam ous Epithelial Cell Ur AU [place] ([facility]) ID Date Data Source [id number] 09/13/2020 02:21:00 PM EST [facility] ([facility], ) Name Value Range Interpretation Code Description Data Ariane rce(s) Supporting Document(s) Appearance, Urine Laboratory test result Normal (applies to non-numeric results) [facility] ([facility], ) Color, Urine Laboratory test result Normal (applies to non -numeric results) [facility] ([facility], ) PH,Urine 6.0 units 5.0-9.0 Normal (applies to non-numeric resul ts) [facility] ([facility], ) Specific [place] Urine Auto 1.019 1.002-1.035 Norm al (applies to non-numeric results) [facility] ([facility], ) Protein, Urine Auto Laboratory test result Ryann l (applies to non-numeric results) [facility], [facility] Glucose, Urine (Ua) Auto Laboratory test result Normal (applies to non-numeric results) [facility] ([facility], ) Urobilinogen, Urine Auto 0.2 mg/dL 0.0-2.0 Normal (applies to non-numeric results) [facility] ([facility], ) Ketone, Urine Auto Laboratory test result Normal (applies to non-numeric results) [facility] ([facility], ) Bilirubin, Urine Auto Laboratory test result Nor mal (applies to non-numeric results) [facility] ([facility], ) Nitrite, Urine Auto Laboratory test result Ryann l (applies to non-numeric results) [facility] ([facility]) Leukocyte Esterase, Urine Auto Laboratory test result Normal (applies to non- numeric results) [facility] ([facility]) Blood, Urine Blood Laboratory test result Normal (applies to non-numeric results) [facility] ([facility]) WBC, Urine Auto 1 /HPF 0-3 Normal (applies to non-numeric results) [facility] ([facility]) RBC, Urine Auto 5 /HPF 0-3 Above high normal [place] ([facility]) Bacteria, Urine Auto Laboratory test result Norm al (applies to non-numeric results) [facility] ([facility]) Squamous Epithelial Cell Ur AU 1 /HPF 0-6 N ormal (applies to non-numeric results) [facility] ([facility]) Mucus, Urine Laboratory test result Normal (applies to non -numeric results) [facility] ([facility]) Hyaline Cast, Urine Auto 0 /LPF 0-1 Normal (applies to non -numeric results) [facility] ([facility]) ID Date Data Source [id number] 09/13/2020 01:20:00 PM EST [place] ([facility]) Name Value Range Interpretation Code Description Data Ariane rce(s) Supporting Document(s) prothrombin time 13.0 seconds 12.5-14.3 normal Prothrombin Time [facility]) INR normal Inr [facility] ([facility]) ID Date Data Source [id number] 09/13/2020 01:20:00 PM EST [facility]) Name Value Range Interpretation Code Description Data Ariane rce(s) Supporting Document(s) glucose, fasting 86 mg/dL 70-100 normal Glucose, Fasting AT [facility] ([facility]) glomerular filtration rate > 60.0 >51 normal Glomerula r Filtration Rate [facility]) creatinine for GFR 0.78 mg/dL 0.55-1.30 normal Creatinine for GF R [place] ([facility]) blood urea nitrogen 23 mg/dL 7-18 Above high normal Blood Ure a Nitrogen [place] ([facility]) sodium level 141 mEq/L 136-145 normal Sodium Level [place] ([facility]) potassium serum 4.7 mEq/L 3.5-5.1 normal Potassium Serum ATHE NA ([facility]) chloride level 112 mEq/L 98-107 Above high normal Chloride Level [place] ([facility]) calcium level 8.7 mg/dL 8.5-10.1 normal Calcium Level [place] ( [facility]) anion gap 4 mEq/L 8-16 Below low normal Anion Gap [place] ( [facility]) carbon dioxide level 25 mEq/L 21-32 normal Carbon Dioxide Level [place] ([facility]) ID Date Data Source [id number] 09/13/2020 01:20:00 PM EST [place] ([facility]) Name Value Range Interpretation Code Description Data Ariane rce(s) Supporting Document(s) partial thromboplastin time 27.5 seconds 24.2-38.5 normal Partial Thromboplastin Time [place] ([facility]) ID Date Data Source [id number] 09/13/2020 01:20:00 PM EST [place] ([facility]) Name Value Range Interpretation Code Description Data Ariane rce(s) Supporting Document(s) white blood count 6.2 10 4.0-10.0 normal White Blood Count [place] ([facility]) red blood count 3.93 10 4.00-5.40 Below low normal Red Blood Coun t [place] ([facility]) hemoglobin 12.5 g/dL 12.0-15.5 normal Hemoglobin [place] ([facility]) mean corpuscular volume 99.0 fL 80.0-96.0 Above high normal Mean Corpuscular Volume [place] ([facility]) hematocrit 38.9 % 36.0-47.0 normal Hematocrit [place] ([facility]) red cell distribution width 13.3 % 11.5-14.5 normal Red Cell Distribution Width [place] ([facility]) mean corpuscular hemoglobin 31.8 pg 27.0-33.0 normal Mean Corpuscular Hemoglobin [place] ([facility]) mean corpuscular HGB conc 32.1 g/dL 32.0-36.5 normal Mean Corpu scular HGB Conc [place] ([facility]) platelet count, automated 258 10 150-450 normal Platelet C ount, Automated [place] ([facility]) nucleated red blood cell % 0.0 % 0-0 normal Nucleated Red Blood Cell % [place] ([facility]) ID Date Data Source [id number] 09/13/2020 01:20:00 PM EST [place] ([facility]) Name Value Range Interpretation Code Description Data Ariane rce(s) Supporting Document(s) carboxyhemoglobin 1.8 % 0.0-1.5 Above high normal Carboxyhemo globin [place] ([facility]) ID Date Data Source [id number] 09/13/2020 01:20:00 PM EST [place] ([facility]) Name Value Range Interpretation Code Description Data Ariane rce(s) Supporting Document(s) prothrombin time 13.0 seconds 12.5-14.3 normal Prothrombin Time [place] ([facility]) INR normal Inr [facility] ([facility]) ID Date Data Source [id number] 09/13/2020 01:20:00 PM EST [place] ([facility]) Name Value Range Interpretation Code Description Data Ariane rce(s) Supporting Document(s) creatinine for GFR 0.78 mg/dL 0.55-1.30 normal Creatinine for GF R [place] ([facility]) blood urea nitrogen 23 mg/dL 7-18 Above high normal Blood Ure a Nitrogen [place] ([facility]) glucose, fasting 86 mg/dL 70-100 normal Glucose, Fasting AT [place] ([facility]) potassium serum 4.7 mEq/L 3.5-5.1 normal Potassium Serum ATH NA ([facility]) sodium level 141 mEq/L 136-145 normal Sodium Level [place] (No [facility]) glomerular filtration rate > 60.0 >51 normal Glomerula r Filtration Rate [place] ([facility]) anion gap 4 mEq/L 8-16 Below low normal Anion Gap [place] ( [facility]) chloride level 112 mEq/L 98-107 Above high normal Chloride Level [place] ([facility]) carbon dioxide level 25 mEq/L 21-32 normal Carbon Dioxide Level [place] ([facility]) calcium level 8.7 mg/dL 8.5-10.1 normal Calcium Level [place] ( [facility]) ID Date Data Source [id number] 09/13/2020 01:20[facility]00 [facility] Name Value Range Interpretation Code Description Data Ariane rce(s) Supporting Document(s) partial thromboplastin time 27.5 seconds 24.2-38.5 normal Partial Thromboplastin Time [place] ([facility]) ID Date Data Source [id number] 09/13/2020 01:20:00 PM EST [place] ([facility]) Name Value Range Interpretation Code Description Data Ariane rce(s) Supporting Document(s) white blood count 6.2 10 4.0-10.0 normal White Blood Count [place] ([facility]) red blood count 3.93 10 4.00-5.40 Below low normal Red Blood Coun t [place] ([facility]) hematocrit 38.9 % 36.0-47.0 normal Hematocrit [place] ([facility]) hemoglobin 12.5 g/dL 12.0-15.5 normal Hemoglobin [place] ([facility]) mean corpuscular volume 99.0 fL 80.0-96.0 Above high normal Mean Corpuscular Volume [place] ([facility]) mean corpuscular hemoglobin 31.8 pg 27.0-33.0 normal Mean Corpuscular Hemoglobin [place] ([facility]) platelet count, automated 258 10 150-450 normal Platelet C ount, Automated [place] ([facility]) red cell distribution width 13.3 % 11.5-14.5 normal Red Cell Distribution Width [place] ([facility]) mean corpuscular HGB conc 32.1 g/dL 32.0-36.5 normal Mean Corpu scular HGB Conc [place] ([facility]) nucleated red blood cell % 0.0 % 0-0 normal Nucleated Red Blood Cell % [place] ([facility]) ID Date Data Source [id number] 09/13/2020 01:20:00 PM EST [place] ([facility]) Name Value Range Interpretation Code Description Data Ariane rce(s) Supporting Document(s) carboxyhemoglobin 1.8 % 0.0-1.5 Above high normal Carboxyhemo globin [place] ([facility]) ID Date Data Source [id number] 09/13/2020 01:20:00 PM EST [place] ([facility]) Name Value Range Interpretation Code Description Data Ariane rce(s) Supporting Document(s) prothrombin time 13.0 seconds 12.5-14.3 normal Prothrombin Time [facility] ([facility]) INR normal Inr [facility] ([facility]) ID Date Data Source [id number] 09/13/2020 01:20:00 PM EST [place] ([facility]) Name Value Range Interpretation Code Description Data Ariane rce(s) Supporting Document(s) blood urea nitrogen 23 mg/dL 7-18 Above high normal Blood Ure a Nitrogen [place] ([facility]) glucose, fasting 86 mg/dL 70-100 normal Glucose, Fasting AT [facility] ([facility]) creatinine for GFR 0.78 mg/dL 0.55-1.30 normal Creatinine for GF R [place] ([facility]) sodium level 141 mEq/L 136-145 normal Sodium Level [place] (No [facility]) glomerular filtration rate > 60.0 >51 normal Glomerula r Filtration Rate [place] ([facility]) anion gap 4 mEq/L 8-16 Below low normal Anion Gap [place] ( [facility]) carbon dioxide level 25 mEq/L 21-32 normal Carbon Dioxide Level [place] ([facility]) chloride level 112 mEq/L 98-107 Above high normal Chloride Level [place] ([facility]) potassium serum 4.7 mEq/L 3.5-5.1 normal Potassium Serum ATHE NA ([facility]) calcium level 8.7 mg/dL 8.5-10.1 normal Calcium Level [place] ( [facility]) ID Date Data Source [id number] 09/13/2020 01:20:00 PM EST [facility]) Name Value Range Interpretation Code Description Data Ariane rce(s) Supporting Document(s) partial thromboplastin time 27.5 seconds 24.2-38.5 normal Partial Thromboplastin Time [facility]) ID Date Data Source [id number] 09/13/2020 01:20:00 PM EST [place] ([facility]) Name Value Range Interpretation Code Description Data Ariane rce(s) Supporting Document(s) hematocrit 38.9 % 36.0-47.0 normal Hematocrit [facility] ([facility]) red blood count 3.93 10 4.00-5.40 Below low normal Red Blood Coun t [facility] ([facility]) hemoglobin 12.5 g/dL 12.0-15.5 normal Hemoglobin [place] ([facility]) white blood count 6.2 10 4.0-10.0 normal White Blood Count [place] ([facility]) mean corpuscular HGB conc 32.1 g/dL 32.0-36.5 normal Mean Corpu scular HGB Conc [place] ([facility]) mean corpuscular volume 99.0 fL 80.0-96.0 Above high normal Mean Corpuscular Volume [facility] ([facility]) mean corpuscular hemoglobin 31.8 pg 27.0-33.0 normal Mean Corpuscular Hemoglobin [facility] ([facility]) platelet count, automated 258 10 150-450 normal Platelet C ount, Automated [place] ([facility]) nucleated red blood cell % 0.0 % 0-0 normal Nucleated Red Blood Cell % [facility] ([facility]) red cell distribution width 13.3 % 11.5-14.5 normal Red Cell Distribution Width [facility] ([facility]) ID Date Data Source [id number] 09/13/2020 01:20:00 PM EST [place] ([facility]) Name Value Range Interpretation Code Description Data Ariane rce(s) Supporting Document(s) carboxyhemoglobin 1.8 % 0.0-1.5 Above high normal Carboxyhemo globin [facility] ([facility]) ID Date Data Source [id number] 09/13/2020 01:20:00 PM EST [facility]) Name Value Range Interpretation Code Description Data Ariane rce(s) Supporting Document(s) prothrombin time 13.0 seconds 12.5-14.3 normal Prothrombin Time [facility] ([facility]) INR normal Inr [facility] ([facility]) ID Date Data Source [id number] 09/13/2020 01:20:00 PM EST [facility]) Name Value Range Interpretation Code Description Data Ariane rce(s) Supporting Document(s) blood urea nitrogen 23 mg/dL 7-18 Above high normal Blood Ure a Nitrogen [facility] ([facility]) glucose, fasting 86 mg/dL 70-100 normal Glucose, Fasting AT [facility]) glomerular filtration rate > 60.0 >51 normal Glomerula r Filtration Rate [place] ([facility]) creatinine for GFR 0.78 mg/dL 0.55-1.30 normal Creatinine for GF R [place] ([facility]) sodium level 141 mEq/L 136-145 normal Sodium Level [facility] ([facility]) potassium serum 4.7 mEq/L 3.5-5.1 normal Potassium Serum ATH NA [facility]) chloride level 112 mEq/L 98-107 Above high normal Chloride Level [place] ([facility]) carbon dioxide level 25 mEq/L 21-32 normal Carbon Dioxide Level [place] ([facility]) calcium level 8.7 mg/dL 8.5-10.1 normal Calcium Level [facility] ( [facility]) anion gap 4 mEq/L 8-16 Below low normal Anion Gap [facility] ( [facility]) ID Date Data Source [id number] 09/13/2020 01:20:00 PM EST [facility] ([facility]) Name Value Range Interpretation Code Description Data Ariane rce(s) Supporting Document(s) partial thromboplastin time 27.5 seconds 24.2-38.5 normal Partial Thromboplastin Time [facility]) ID Date Data Source [id number] 09/13/2020 01:20:00 PM EST [facility] ([facility]) Name Value Range Interpretation Code Description Data Ariane rce(s) Supporting Document(s) red blood count 3.93 10 4.00-5.40 Below low normal Red Blood Coun t [facility] ([facility]) white blood count 6.2 10 4.0-10.0 normal White Blood Count [facility] ([facility]) hematocrit 38.9 % 36.0-47.0 normal Hematocrit [facility]) hemoglobin 12.5 g/dL 12.0-15.5 normal Hemoglobin [facility]) mean corpuscular volume 99.0 fL 80.0-96.0 Above high normal Mean Corpuscular Volume [place] ([facility]) mean corpuscular HGB conc 32.1 g/dL 32.0-36.5 normal Mean Corpu scular HGB Conc [facility] ([facility]) red cell distribution width 13.3 % 11.5-14.5 normal Red Cell Distribution Width [facility] ([facility]) mean corpuscular hemoglobin 31.8 pg 27.0-33.0 normal Mean Corpuscular Hemoglobin P[facility] ([facility]) nucleated red blood cell % 0.0 % 0-0 normal Nucleated Red Blood Cell % [facility] ([facility]) platelet count, automated 258 10 150-450 normal Platelet C ount, Automated [facility] ([facility]) ID Date Data Source [id number] 09/13/2020 01:20:00 PM EST [facility] ([facility]) Name Value Range Interpretation Code Description Data Ariane rce(s) Supporting Document(s) carboxyhemoglobin 1.8 % 0.0-1.5 Above high normal Carboxyhemo globin [facility] ([facility]) ID Date Data Source [id number] 09/13/2020 01:20:00 PM EST P[facility] ([facility]) Name Value Range Interpretation Code Description Data Ariane rce(s) Supporting Document(s) INR normal Inr [facility] ([facility]) prothrombin time 13.0 seconds 12.5-14.3 normal Prothrombin Time P[facility] ([facility]) ID Date Data Source [id number] 09/13/2020 01:20:00 PM EST [facility] ([facility]) Name Value Range Interpretation Code Description Data Ariane rce(s) Supporting Document(s) blood urea nitrogen 23 mg/dL 7-18 Above high normal Blood Ure a Nitrogen [facility] ([facility]) creatinine for GFR 0.78 mg/dL 0.55-1.30 normal Creatinine for GF R [facility] ([facility]) glucose, fasting 86 mg/dL 70-100 normal Glucose, Fasting AT [facility] ([facility]) sodium level 141 mEq/L 136-145 normal Sodium Level [facility] ([facility]) glomerular filtration rate > 60.0 >51 normal Glomerula r Filtration Rate PERRY ([facility]) potassium serum 4.7 mEq/L 3.5-5.1 normal Potassium Serum ATH NA ([facility]) chloride level 112 mEq/L 98-107 Above high normal Chloride Level PERRY ([facility]) calcium level 8.7 mg/dL 8.5-10.1 normal Calcium Level [facility] ( [facility]) carbon dioxide level 25 mEq/L 21-32 normal Carbon Dioxide Level [facility] ([facility]) anion gap 4 mEq/L 8-16 Below low normal Anion Gap PERRY ( [facility]) ID Date Data Source [id number] 09/13/2020 01:20:00 PM EST [facility] ([facility]) Name Value Range Interpretation Code Description Data Ariane rce(s) Supporting Document(s) partial thromboplastin time 27.5 seconds 24.2-38.5 normal Partial Thromboplastin Time [facility] ([facility]) ID Date Data Source [id number] 09/13/2020 01:20:00 PM EST [facility] ([facility]) Name Value Range Interpretation Code Description Data Ariane rce(s) Supporting Document(s) white blood count 6.2 10 4.0-10.0 normal White Blood Count [facility] ([facility]) hemoglobin 12.5 g/dL 12.0-15.5 normal Hemoglobin P[facility] ([facility]) hematocrit 38.9 % 36.0-47.0 normal Hematocrit [facility] ([facility]) red blood count 3.93 10 4.00-5.40 Below low normal Red Blood Coun t PERRY ([facility]) mean corpuscular hemoglobin 31.8 pg 27.0-33.0 normal Mean Corpuscular Hemoglobin [facility] ([facility]) mean corpuscular volume 99.0 fL 80.0-96.0 Above high normal Mean Corpuscular Volume [facility] ([facility]) mean corpuscular HGB conc 32.1 g/dL 32.0-36.5 normal Mean Corpu scular HGB Conc P[facility] ([facility]) red cell distribution width 13.3 % 11.5-14.5 normal Red Cell Distribution Width [facility] ([facility]) platelet count, automated 258 10 150-450 normal Platelet C ount, Automated [facility] ([facility]) nucleated red blood cell % 0.0 % 0-0 normal Nucleated Red Blood Cell % [facility] ([facility]) ID Date Data Source [id number] 09/13/2020 01:20:00 PM EST [facility] ([facility]) Name Value Range Interpretation Code Description Data Ariane rce(s) Supporting Document(s) carboxyhemoglobin 1.8 % 0.0-1.5 Above high normal Carboxyhemo globin [facility]) ID Date Data Source [id number] 09/13/2020 01:20:00 PM EST [facility] ([facility], ) Name Value Range Interpretation Code Description Data Ariane rce(s) Supporting Document(s) Prothrombin Time 13.0 s 12.5-14.3 Normal (applies to non-numeric results) [facility] ([facility]) Inr 0.96 Normal (applies to non-numeric resul ts) [facility]) THERAPUTIC HUMAN INR VALUES INDICATIONS NORMAL RANGES PROPHYLAXIS/TREATMENT OF: VENOUS THROMBOSIS 2.0-3.0 PULMONARY EMBOLISM 2.0-3.0 PREVENTION OF SYSTEMIC EMBOLISM FROM: TISSUE HEART VALVES 2.0-3.0 ACUTE MYOCARDIAL INFARCTION 2.0-3.0 VALVULAR HEART DISEASE 2.0-3.0 ATRIAL FIBRILLATION 2.0-3.0 MECHANICAL VALVES(HIGH RISK) 2.5-3.5 RECURRENT MYOCARDIAL INFARCTION 2.5-3.5 ID Date Data Source [id number] 09/13/2020 01:20:00 PM EST [facility] ([facility], ) Name Value Range Interpretation Code Description Data Ariane rce(s) Supporting Document(s) Blood Urea Nitrogen 23 mg/dL 7-18 Above high normal [facility] ([facility], ) Glucose, Fasting 86 mg/dL 70-100 Normal (applies to non-numeric results) [facility] ([facility]) Creatinine For GFR 0.78 mg/dL 0.55-1.30 Normal (applies to non -numeric results) [facility]) Glomerular Filtration Rate Laboratory test result Normal (applies to non- numeric results) [facility]) <content>Units are mL/min/1.73 m2</content>
<content></content>
<content>Chronic Kidney Disease Staging per NKF:</content>
<content></content>
<content>Stage I & II GFR >=60 Normal to Mildly Decreased</content>
<content>Stage III GFR 30- 59 Moderately Decreased</content>
<content>Stage IV GFR 15-29 Severely Decreased</content>
<content>Stage V GFR <15 Very Little GFR Left</content>
<content>ESRD GFR <15 on SENIOR SHAREPOINT ARCHITECT</content>
<content></content> Sodium Level 141 meq/L 136-145 Normal (applies to non-numeric res ults) [facility] Potassium Serum 4.7 meq/L 3.5-5.1 Normal (applies to non-numeric results) [facility] ([facility]) Chloride Level 112 meq/L 98-107 Above high normal [facility] ([facility]) Carbon Dioxide Level 25 meq/L 21-32 Normal (applies to non-num ayaan results) [facility] ([facility]) Anion Gap 4 meq/L 8-16 Below low normal [facility] ( [facility]) Calcium Level 8.7 mg/dL 8.5-10.1 Normal (applies to non-numeric re sults) [facility] ([facility]) ID Date Data Source [id number] 09/13/2020 01:20:00 PM EST [facility] ([facility]) Name Value Range Interpretation Code Description Data Ariane rce(s) Supporting Document(s) aPTT in Platelet poor plasma by Coagulation assay 27.5 s 24.2-38.5 Normal (applies to non-numeric results) [facility] ([facility]) *Is patient on Anticoagulants? N Comments: PREOP TESTING By: RAHAT Time: 1301 ID Date Data Source [id number] 09/13/2020 01:20:00 PM EST [facility] ([facility]) Name Value Range Interpretation Code Description Data Ariane rce(s) Supporting Document(s) White Blood Count 6.2 10 4.0-10.0 Normal (applies to non-numeri c results) [facility]) Red Blood Count 3.93 10 4.00-5.40 Below low normal [facility] ([facility]) Hemoglobin 12.5 g/dL 12.0-15.5 Normal (applies to non-numeric resul ts) [facility] Hematocrit 38.9 % 36.0-47.0 Normal (applies to non-numeric resul ts) [facility]) Mean Corpuscular Volume 99.0 fl 80.0-96.0 Above high normal [facility] ([facility]) Mean Corpuscular HGB Conc 32.1 g/dL 32.0-36.5 Normal (applies to non-numeric results) [facility] ([facility]) Mean Corpuscular Hemoglobin 31.8 pg 27.0-33.0 Norm al (applies to non-numeric results) [facility] ([facility]) Red Cell Distribution Width 13.3 % 11.5-14.5 Norm al (applies to non-numeric results) [facility] ([facility]) Platelet Count, Automated 258 10 150-450 Normal (applies to non-numeric results) [facility] ([facility]) Nucleated Red Blood Cell % 0.0 % 0-0 Normal (applies to n on-numeric results) [facility] ([facility]) ID Date Data Source [id number] 09/13/2020 01:20:00 PM EST [facility] ([facility]) Name Value Range Interpretation Code Description Data Ariane rce(s) Supporting Document(s) Carboxyhemoglobin/Hemoglobin.total in Blood 1.8 % 0.0-1.5 Abo ve high normal [facility] ([facility]) CARBOXYHEMOGLOBIN EXPECTED VALUES [place] NON-SMOKERS LESS THAN 1.5% SMOKERS 1.5-5.0% HEAVY SMOKERS 5.0-9.0% ID Date Data Source [id number] 09/11/2020 10:30:00 AM EST [facility] Name Value Range Interpretation Code Description Data Ariane rce(s) Supporting Document(s) SARS coronavirus 2 RNA [facility] This lab was ordered by [facility] and reported by [facility]. ID Date Data Source [id number] 08/18/2020 12:25:00 PM EST [facility] ([facility]) Name Value Range Interpretation Code Description Data Ariane rce(s) Supporting Document(s) appearance, urine clear clear normal Appearance, Urine [facility] ([facility]) pH,urine 5.0 units 5.0-9.0 normal pH,urine [facility] ([facility]) color, urine yellow yellow normal Color, Urine [facility] ([facility]) glucose, urine (UA) auto negative negative normal Glucose, Ur ine (UA) Auto [facility] ([facility]) protein, urine auto negative negative normal Protein, Urine A uto [facility] ([facility]) ketone, urine auto negative negative normal Ketone, Urine Aut o [facility] ([facility]) specific gravity urine auto 1.002-1.035 normal Specifi c [place] Urine Auto [facility] ([facility]) urobilinogen, urine auto 0.2 mg/dL 0.0-2.0 normal Urobilinoge n, Urine Auto [facility] ([facility]) bilirubin, urine auto negative negative normal Bilirubin, Uri ne Auto [facility] ([facility]) nitrite, urine auto negative negative normal Nitrite, Urine A uto [facility] ([facility]) RBC, urine auto 2 /hpf 0-3 normal RBC, Urine Auto ATHE NA ([facility]) blood, urine blood 1+ negative Above high normal Blood, Uri ne Blood [facility] ([facility]) WBC, urine auto 10 /hpf 0-3 Above high normal WBC, Urine Au to [facility] ([facility]) leukocyte esterase, urine auto 1+ negative Above high normal Leukocyte Esterase, Urine Auto [facility] ([facility]) squamous epithelial cell ur AU 0 /hpf 0-6 normal Squam ous Epithelial Cell Ur AU [facility] ([facility]) mucus, urine small negative normal Mucus, Urine [facility] ([facility]) bacteria, urine auto negative negative normal Bacteria, Urine Auto [facility] ([facility]) hyaline cast, urine auto 0 /lpf 0-1 normal Hyaline Chris t, Urine Auto [facility] ([facility]) ID Date Data Source [id number] 08/18/2020 12:25:00 PM EST [facility] ([facility]) Name Value Range Interpretation Code Description Data Ariane rce(s) Supporting Document(s) specific gravity urine auto 1.002-1.035 normal Specifi c [place] Urine Auto [facility] ([facility]) color, urine yellow yellow normal Color, Urine [facility] ([facility]) pH,urine 5.0 units 5.0-9.0 normal pH,urine [facility] ([facility]) appearance, urine clear clear normal Appearance, Urine [facility] ([facility]) ketone, urine auto negative negative normal Ketone, Urine Aut o [facility] ([facility]) glucose, urine (UA) auto negative negative normal Glucose, Ur ine (UA) Auto [facility] ([facility]) urobilinogen, urine auto 0.2 mg/dL 0.0-2.0 normal Urobilinoge n, Urine Auto [facility] ([facility]) protein, urine auto negative negative normal Protein, Urine A uto [facility] ([facility]) leukocyte esterase, urine auto 1+ negative Above high normal Leukocyte Esterase, Urine Auto [facility] ([facility]) bilirubin, urine auto negative negative normal Bilirubin, Uri ne Auto [facility] ([facility]) nitrite, urine auto negative negative normal Nitrite, Urine A uto [facility] ([facility]) blood, urine blood 1+ negative Above high normal Blood, Uri ne Blood [facility] ([facility]) squamous epithelial cell ur AU 0 /hpf 0-6 normal Squam ous Epithelial Cell Ur AU [facility] ([facility]) mucus, urine small negative normal Mucus, Urine [facility] ([facility]) WBC, urine auto 10 /hpf 0-3 Above high normal WBC, Urine Au to [facility] ([facility]) bacteria, urine auto negative negative normal Bacteria, Urine Auto [facility] ([facility]) RBC, urine auto 2 /hpf 0-3 normal RBC, Urine Auto ATHE NA ([facility]) hyaline cast, urine auto 0 /lpf 0-1 normal Hyaline Chris t, Urine Auto [facility] ([facility]) ID Date Data Source [id number] 08/18/2020 12:25:00 PM EST [facility] ([facility]) Name Value Range Interpretation Code Description Data Ariane rce(s) Supporting Document(s) color, urine yellow yellow normal Color, Urine [facility] ([facility]) appearance, urine clear clear normal Appearance, Urine [facility] ([facility]) pH,urine 5.0 units 5.0-9.0 normal pH,urine [facility] ([facility]) ketone, urine auto negative negative normal Ketone, Urine Aut o [facility] ([facility]) protein, urine auto negative negative normal Protein, Urine A uto [facility] ([facility]) glucose, urine (UA) auto negative negative normal Glucose, Ur ine (UA) Auto [facility] ([facility]) urobilinogen, urine auto 0.2 mg/dL 0.0-2.0 normal Urobilinoge n, Urine Auto [facility] ([facility]) specific gravity urine auto 1.002-1.035 normal Specifi c [place] Urine Auto [facility] ([facility]) nitrite, urine auto negative negative normal Nitrite, Urine A uto [facility] ([facility]) blood, urine blood 1+ negative Above high normal Blood, Uri ne Blood [facility] ([facility]) WBC, urine auto 10 /hpf 0-3 Above high normal WBC, Urine Au to [facility] ([facility]) bilirubin, urine auto negative negative normal Bilirubin, Uri ne Auto [facility] ([facility]) leukocyte esterase, urine auto 1+ negative Above high normal Leukocyte Esterase, Urine Auto [facility] ([facility]) mucus, urine small negative normal Mucus, Urine [facility] ([facility]) hyaline cast, urine auto 0 /lpf 0-1 normal Hyaline Chris t, Urine Auto [facility] ([facility]) bacteria, urine auto negative negative normal Bacteria, Urine Auto [facility] ([facility]) squamous epithelial cell ur AU 0 /hpf 0-6 normal Squam ous Epithelial Cell Ur AU [facility] ([facility]) RBC, urine auto 2 /hpf 0-3 normal RBC, Urine Auto ATHE NA ([facility]) ID Date Data Source [id number] 08/18/2020 12:25:00 PM EST [facility] ([facility]) Name Value Range Interpretation Code Description Data Ariane rce(s) Supporting Document(s) pH,urine 5.0 units 5.0-9.0 normal pH,urine [facility] ([facility]) appearance, urine clear clear normal Appearance, Urine [facility] ([facility]) color, urine yellow yellow normal Color, Urine [facility] ([facility]) protein, urine auto negative negative normal Protein, Urine A uto [facility] ([facility]) glucose, urine (UA) auto negative negative normal Glucose, Ur ine (UA) Auto [facility] ([facility]) urobilinogen, urine auto 0.2 mg/dL 0.0-2.0 normal Urobilinoge n, Urine Auto [facility] ([facility]) ketone, urine auto negative negative normal Ketone, Urine Aut o [facility] ([facility]) specific gravity urine auto 1.002-1.035 normal Specifi c [place] Urine Auto [facility] ([facility]) WBC, urine auto 10 /hpf 0-3 Above high normal WBC, Urine Au to [facility] ([facility]) leukocyte esterase, urine auto 1+ negative Above high normal Leukocyte Esterase, Urine Auto [facility] ([facility]) blood, urine blood 1+ negative Above high normal Blood, Uri ne Blood [facility] ([facility]) nitrite, urine auto negative negative normal Nitrite, Urine A uto [facility] ([facility]) bilirubin, urine auto negative negative normal Bilirubin, Uri ne Auto [facility] ([facility]) bacteria, urine auto negative negative normal Bacteria, Urine Auto [facility] ([facility]) mucus, urine small negative normal Mucus, Urine [facility] (No [facility]) squamous epithelial cell ur AU 0 /hpf 0-6 normal Squam ous Epithelial Cell Ur AU [facility] ([facility]) hyaline cast, urine auto 0 /lpf 0-1 normal Hyaline Chris t, Urine Auto [facility] ([facility]) RBC, urine auto 2 /hpf 0-3 normal RBC, Urine Auto ATHE NA ([facility]) ID Date Data Source [id number] 08/18/2020 12:25:00 PM EST [facility] ([facility]) Name Value Range Interpretation Code Description Data Ariane rce(s) Supporting Document(s) appearance, urine clear clear normal Appearance, Urine [facility] ([facility]) specific gravity urine auto 1.002-1.035 normal Specifi c [place] Urine Auto [facility] ([facility]) pH,urine 5.0 units 5.0-9.0 normal pH,urine [facility] ([facility]) glucose, urine (UA) auto negative negative normal Glucose, Ur ine (UA) Auto [facility] ([facility]) protein, urine auto negative negative normal Protein, Urine A uto [facility] ([facility]) color, urine yellow yellow normal Color, Urine [facility] ([facility]) nitrite, urine auto negative negative normal Nitrite, Urine A uto [facility] ([facility]) ketone, urine auto negative negative normal Ketone, Urine Aut o [facility] ([facility]) bilirubin, urine auto negative negative normal Bilirubin, Uri ne Auto [facility] ([facility]) urobilinogen, urine auto 0.2 mg/dL 0.0-2.0 normal Urobilinoge n, Urine Auto [facility] ([facility]) leukocyte esterase, urine auto 1+ negative Above high normal Leukocyte Esterase, Urine Auto [facility] ([facility]) RBC, urine auto 2 /hpf 0-3 normal RBC, Urine Auto [facility] ([facility]) blood, urine blood 1+ negative Above high normal Blood, Uri ne Blood [facility] ([facility]) WBC, urine auto 10 /hpf 0-3 Above high normal WBC, Urine Au to [facility] ([facility]) bacteria, urine auto negative negative normal Bacteria, Urine Auto [facility] ([facility]) hyaline cast, urine auto 0 /lpf 0-1 normal Hyaline Chris t, Urine Auto [facility] ([facility]) mucus, urine small negative normal Mucus, Urine [facility] ([facility]) squamous epithelial cell ur AU 0 /hpf 0-6 normal Squam ous Epithelial Cell Ur AU [facility] ([facility]) ID Date Data Source [id number] 08/18/2020 12:25:00 PM EST [facility] ([facility]) Name Value Range Interpretation Code Description Data Ariane rce(s) Supporting Document(s) appearance, urine clear clear normal Appearance, Urine [facility] ([facility]) specific gravity urine auto 1.002-1.035 normal Specifi c [place] Urine Auto [facility] ([facility]) color, urine yellow yellow normal Color, Urine [facility] (No [facility]) pH,urine 5.0 units 5.0-9.0 normal pH,urine [facility] ([facility]) ketone, urine auto negative negative normal Ketone, Urine Aut o [facility] ([facility]) urobilinogen, urine auto 0.2 mg/dL 0.0-2.0 normal Urobilinoge n, Urine Auto [facility] ([facility]) protein, urine auto negative negative normal Protein, Urine A rio [facility] ([facility]) glucose, urine (UA) auto negative negative normal Glucose, Ur ine (UA) Auto [facility] ([facility]) bilirubin, urine auto negative negative normal Bilirubin, Uri ne Auto [facility] ([facility]) blood, urine blood 1+ negative Above high normal Blood, Uri ne Blood [facility] ([facility]) nitrite, urine auto negative negative normal Nitrite, Urine A uto [facility] ([facility]) WBC, urine auto 10 /hpf 0-3 Above high normal WBC, Urine Au to [facility] ([facility]) leukocyte esterase, urine auto 1+ negative Above high normal Leukocyte Esterase, Urine Auto [facility] ([facility]) bacteria, urine auto negative negative normal Bacteria, Urine Auto [facility] ([facility]) squamous epithelial cell ur AU 0 /hpf 0-6 normal Squam ous Epithelial Cell Ur AU [facility] ([facility]) RBC, urine auto 2 /hpf 0-3 normal RBC, Urine Auto ATHE NA ([facility]) mucus, urine small negative normal Mucus, Urine [facility] (No [facility]) hyaline cast, urine auto 0 /lpf 0-1 normal Hyaline Chris t, Urine Auto [facility] ([facility]) ID Date Data Source [id number] 08/18/2020 12:25:00 PM EST [facility] ([facility]) Name Value Range Interpretation Code Description Data Ariane rce(s) Supporting Document(s) appearance, urine clear clear normal Appearance, Urine [facility] ([facility]) specific gravity urine auto 1.002-1.035 normal Specifi c [place] Urine Auto [facility] ([facility]) protein, urine auto negative negative normal Protein, Urine A uto [facility] ([facility]) pH,urine 5.0 units 5.0-9.0 normal pH,urine [facility] ([facility]) color, urine yellow yellow normal Color, Urine [facility] (No [facility]) urobilinogen, urine auto 0.2 mg/dL 0.0-2.0 normal Urobilinoge n, Urine Auto [facility] ([facility]) glucose, urine (UA) auto negative negative normal Glucose, Ur ine (UA) Auto [facility] ([facility]) ketone, urine auto negative negative normal Ketone, Urine Aut o [facility] ([facility]) bilirubin, urine auto negative negative normal Bilirubin, Uri ne Auto [facility] ([facility]) nitrite, urine auto negative negative normal Nitrite, Urine A uto [facility] ([facility] [facility]) WBC, urine auto 10 /hpf 0-3 Above high normal WBC, Urine Au to SAVAGE ([facility]) leukocyte esterase, urine auto 1+ negative Above high normal Leukocyte Esterase, Urine Auto [facility] ([facility]) blood, urine blood 1+ negative Above high normal Blood, Uri ne Blood SAVAGE ([facility]) squamous epithelial cell ur AU 0 /hpf 0-6 normal Squam ous Epithelial Cell Ur AU [facility] ([facility]) bacteria, urine auto negative negative normal Bacteria, Urine Auto [facility] ([facility]) hyaline cast, urine auto 0 /lpf 0-1 normal Hyaline Chris t, Urine Auto [facility] ([facility]) mucus, urine small negative normal Mucus, Urine [facility] (No [facility]) RBC, urine auto 2 /hpf 0-3 normal RBC, Urine Auto ATHE NA ([facility]) ID Date Data Source [id number] 07/23/2020 10:45:00 AM EDT [facility]) Name Value Range Interpretation Code Description Data Ariane rce(s) Supporting Document(s) Prothrombin Time 12.2 s 12.5-14.3 Normal (applies to non-numeric results) [facility]) Inr 0.89 Normal (applies to non-numeric resul ts) [facility] ([facility]) THERAPUTIC HUMAN INR VALUES INDICATIONS NORMAL RANGES PROPHYLAXIS/TREATMENT OF: VENOUS THROMBOSIS 2.0-3.0 PULMONARY EMBOLISM 2.0-3.0 PREVENTION OF SYSTEMIC EMBOLISM FROM: TISSUE HEART VALVES 2.0-3.0 ACUTE MYOCARDIAL INFARCTION 2.0-3.0 VALVULAR HEART DISEASE 2.0-3.0 ATRIAL FIBRILLATION 2.0-3.0 MECHANICAL VALVES(HIGH RISK) 2.5-3.5 RECURRENT MYOCARDIAL INFARCTION 2.5-3.5 Partial Thromboplastin Time 29.0 s 24.2-38.5 Norm al (applies to non-numeric results) [facility] ([facility]) ID Date Data Source [id number] 07/23/2020 10:45:00 AM EDT [facility]) Name Value Range Interpretation Code Description Data Ariane rce(s) Supporting Document(s) Platelets [#/volume] in Blood by Automated count 258 10 150-450 Normal (applies to non-numeric results) [facility]) aPTT in Platelet poor plasma by Coagulation assay Laboratory test res ult [facility]) ID Date Data Source [id number] 07/22/2020 02:47:12 PM EDT [facility] Measurements & CalculationsHeight: 63 inches (5 ft. [...] provider? Yes - [place], Neuro[place] date reported today: 01/28/2020Have you seen [...] PMPatient History Medical History:AnxietyDepressionAsthmaSeizuresLung NodulesMigrainesSurgical History: section c6OsmmimqmojpCXMBM&CColonoscopy Endoscopy "cancer removed from uterus"Family History:No known [...] during this visit, including review of any cuno-pqg-giuvqsj medications, herbal therapies, and/or supplements.Allergy ReviewAllergy List [...] (Mild)Orders:Adult - Ofc Vst, EST, Level III [CPT-85732] Dermatology Consult [CPT-47690] Name Value Range Interpretation Code Description Data Ariane rce(s) Supporting Document(s) ID Date Data Source [id number] 06/25/2020 10:18:53 AM EDT [facility] Measurements & CalculationsHeight: 63 inches (5 ft. [...] provider? Yes - [facility] Neuro[facility] [place] [facility] [place] [facility] [place]? Yes - NCFHDIntake [...] AMPatient History Medical History:AnxietyDepressionAsthmaSeizuresLung NodulesMigrainesSurgical History: section c5OebbrhqekosJUWPO&CColonoscopy Endoscopy "cancer removed from uterus"Family History:No known [...] during this visit, including review of any mtyd-teg-uszzgri medications, herbal therapies, and/or supplements.Allergy ReviewAllergy List [...] & Plan Problems:Assessed:Solitary nodule of lung (ICD-793.11) (PYO85-U43.1) Assessment: Instructions: Set up PET scan and refer to Pulmonology.ASTHMA (ICD-493.90) (ZBY94-G82.909) Assessment: Instructions: Add Symbicort to the Ventolin.Tobacco use (ICD-305.1) (TPM74-B93.0) Assessment: Instructions: Trial of Chantix.Patient Instructions/Care Plan: [...] (Mild)Orders:Adult - Ofc Vst, EST, Level III [CPT-86623] Pulmonology Consult [CPT-27418] PET IMAGING CT FOR ATTENUATION LIMITED AREA [CPT-70945] Medications:CHANTIX STARTING MONTH ADAM 0.5 MG X 11 & 1 MG X 42 ORAL TABLET (VARENICLINE TARTRATE) UAD. #1[Unspecified] x 0 Route:ORAL Entered and Authorized by: Pa Mcdonough MD Method used: Electronically to [facility]* (retail) [address] [place] [address] Note to Pharmacy: Route: ORAL; RxID: [id number] 160-4.5 MCG/ACT INHALATION AEROSOL (BUDESONIDE-FORMOTEROL FUMARATE) 2 puffs bid. #1[Unspecified] x 2 Route:INHALATION Entered and Authorized by: Pa Mcdonough MD Method used: Electronically to [facility]* (retail) [address] [place] [address] Fax: Note to Pharmacy: Route: INHALATION; RxID: [id number] signed by Pa Mcdonough MD on 06/25/2020 at 11:10 AM Review of Systems General: Denies chills, fever. Cardiovascular: Denies chest pain, palpitations, feeling faint. Respiratory: Complains of see HPI, cough. Assessment & Plan Name Value Range Interpretation Code Description Data Ariane rce(s) Supporting Document(s) ID Date Data Source [id number] 06/07/2020 11:03:29 AM EDT [facility] Name Value Range Interpretation Code Description Data Ariane rce(s) Supporting Document(s) ID Date Data Source [id number] 05/26/2020 11:31:00 AM EDT [facility] Name Value Range Interpretation Code Description Data Ariane rce(s) Supporting Document(s) HGBA1C 5.2 % N [facility] ID Date Data Source [id number] 05/26/2020 11:31:00 AM EDT [facility] Name Value Range Interpretation Code Description Data Ariane rce(s) Supporting Document(s) BG FASTING 84 mg/dL 70-100 N [facility] TSH 1.070 microintl units/mL 0.358-3.740 N [facility] VIT D25 TOT 25.0 ng/mL 30.0-100.[address] [facility] ID Date Data Source [id number] 05/26/2020 11:30:41 AM EDT [facility] Labs In-House Blood TestsDate/Time Colle cted: May 26, 2020 11:31 AMTest Result Reference Range Normal ValueComments: labs drawn in office. Taken from right AC. Tolerated well. Sera Fieldsfatou BAIG, May 26, 2020 11:31 AMAssessment & Plan Orders:[id number] Vst-Est Level I [CPT-76565] 26283 - Venipuncture [CPT-37274] Name Value Range Interpretation Code Description Data Ariane rce(s) Supporting Document(s) ID Date Data Source [id number] 04/12/2020 04:07:00 PM EDT [facility] ([facility], ) Name Value Range Interpretation Code Description Data Ariane rce(s) Supporting Document(s) Surgical pathology study Laboratory test result [facility] ([facility], ) FINAL DIAGNOSIS Esophagus, below Z line, [...] one. -YZ 04/13/2020 - 1403 Signed Tania oHlland M.D. 04/14/2020 1322 ID Date Data Source [id number] 04/09/2020 12:00:00 AM EDT [facility] Name Value Range Interpretation Code Description Data Ariane rce(s) Supporting Document(s) SARS CORONAVIRUS 2 RNA [facility] This lab was ordered by [facility] and reported by [facility]. ID Date Data Source [id number] 04/06/2020 04:26:00 PM EDT [facility] Name Value Range Interpretation Code Description Data Ariane rce(s) Supporting Document(s) HCT 38.9 % 36.0-47.0 N [facility] HGB 12.8 g/dL 12.0-15.5 [facility] MCH 32.9 G/DL pg 32.0-36.5 N [facility] MCHC 31.4 PG % 27.0-33.0 N [facility] PLATELETS 269 10 10*3/mm3 150-450 N [facility] RBC 4.07 10 10*6/mm3 4.00-5.40 [facility] RDW 13.9 % 11.5-14.5 [facility] WBC TOTAL 6.8 4.0-10.0 [facility] ID Date Data Source [id number] 04/06/2020 04:26:00 PM EDT [facility] Name Value Range Interpretation Code Description Data Ariane rce(s) Supporting Document(s) BG FASTING 70 mg/dL 70-100 N [facility] ID Date Data Source [id number] 04/02/2020 09:55:00 AM EDT [facility] Name Value Range Interpretation Code Description Data Ariane rce(s) Supporting Document(s) BG FASTING 86 mg/dL 70-100 N [facility] TSH 1.160 microintl units/mL 0.358-3.740 [facility] ID Date Data Source [id number] 04/02/2020 09:22:40 AM EDT [facility] Measurements & CalculationsHeight: 63 inches (5 ft. [...] AMPatient History Medical History:AnxietyDepressionAsthmaSeizuresLung NodulesMigrainesSurgical History: section w0IasaucfedpmJPHYD&CColonoscopy Endoscopy "cancer removed from uterus"Family History:No known [...] during this visit, including review of any qxss-anw-erwkfpk medications, herbal therapies, and/or supplements.Allergy ReviewAllergy List [...] & Plan Problems:Added: Acute cystitis without hematuria (FKS40-S63.00) Assessment: Instructions: And viral gastroenteritis.Resolved.Recheck if symptoms recur.Assessed:Chest pain, unspecified (HGQ60-A92.9) Assessment: Instructions: Most likely chest wall pain.Heat [...] (Mild)Orders:Adult - Ofc Vst, EST, Level III [CPT-48407] Labs In-House Blood TestsDate/Time Collected: April 02, 2020 9:54 AMTest Result Reference Range Normal ValueComments: blood draw done in office, taken from right ac, tolerated well.Jyoti Ashford, April 02, 2020 9:54 AM Name Value Range Interpretation Code Description Data Ariane rce(s) Supporting Document(s) ID Date Data Source [id number] 03/23/2020 12:54:00 PM EDT [facility] ) Name Value Range Interpretation Code Description Data Ariane rce(s) Supporting Document(s) Free T4 1.10 ng/dL 0.76-1.46 Normal (applies to non-numeric resul ts) [facility] ) 04/07/20 (SunApr 07) 09:18 AM MALLORY PAEZ Thyroid function is normal. 04/14/20 (SunApr 14) 01:06 PM MALLORY PAEZ No other BW results came through with this order. I checked [facility] and no results were seen for this day (03/23/20) for the other lab tests that I ordered. Not certain if perhaps they were not done. However, those tests were done at other times and this was reviewed in [facility]. Thyroid Stimulating Hormone 1.910 uIU/ML 0.358-3.740 Norm al (applies to non- numeric results) [facility] ) ID Date Data Source [id number] 03/23/2020 12:54:00 PM EDT [facility] ) Name Value Range Interpretation Code Description Data Ariane rce(s) Supporting Document(s) Lipoprotein lipase [Enzymatic activity/volume] in Seru m or Plasma Laboratory test result [facility] ([facility]) Amylase [Enzymatic activity/volume] in Serum or Plasma Laborator y test result [facility] ([facility], ) ID Date Data Source [id number] 03/15/2020 01:47:15 PM EDT [facility] Measurements & CalculationsHeight: 63 inches (5 ft. [...] provider? Yes - GI, Neuro, [place], [facility] provider date reported today: 01/28/2020Have you [...] PMPatient History Medical History:AnxietyDepressionAsthmaSeizuresLung NodulesMigrainesSurgical History: section o8RbofhixflmeKKBKF&CColonoscopy Endoscopy "cancer removed from uterus"Family History:No known [...] Plan Problems:Added: Solitary nodule of lung (ICD-793.11) (SEC71-M98.1) Assessment: Instructions: Recheck lung CT soon.Assessed:Post traumatic stress disorder (ICD-309.81) (ASO18-E51.10) Assessment: Instructions: Having more issues lately.Recheck as scheduled with counsellor and with Dr. Stafford.Sooner if worse.Hypothyroidism, unspecified (DSH76-I89.9) Assessment: Instructions: And dyslipidemia.Continue current m edications [...] familyOrders:Adult - Ofc Vst, EST, Level III [CPT-44234] CT COLONOGRPHY DX IMAGE POSTPROCESS W/CONTRAST [CPT- 92809] COMP METABOLIC PANEL [CPT-31854] TSH [CPT-44294] LIPID PANEL [CPT-60931] Name Value Range Interpretation Code Description Data Ariane rce(s) Supporting Document(s) ID Date Data Source [id number] 02/12/2020 09:59:12 AM EDT [facility] Labs In-House Blood TestsDate/Time Colle cted: February 12, 2020 9:20 AMTest Result Reference Range Normal ValueComments: blood draw done in office, taken from left ac, tolerated well.Jyoti Ashford, February 12, 2020 9:59 AMAssessment & Plan Orders:[id number] Vst-Est Level I [CPT-36169] 91032 - Venipuncture [CPT-53286] Name Value Range Interpretation Code Description Data Ariane rce(s) Supporting Document(s) ID Date Data Source [id number] 02/12/2020 09:20:00 AM EDT [facility] Name Value Range Interpretation Code Description Data Ariane rce(s) Supporting Document(s) HCT 45.8 % 36.0-47.0 N [facility] HGB 14.4 g/dL 12.0-15.5 N [facility] MCH 31.4 G/DL pg 32.0-36.5 L [facility] MCHC 31.1 PG % 27.0-33.0 N [facility] PLATELETS 331 10 10*3/mm3 150-450 N [facility] RBC 4.63 10 10*6/mm3 4.00-5.40 N [facility] RDW 15.6 % 11.5-14.5 H [facility] WBC TOTAL 9.9 4.0-10.0 N [facility] ID Date Data Source [id number] 02/12/2020 09:20:00 AM EDT [facility] Name Value Range Interpretation Code Description Data Ariane rce(s) Supporting Document(s) BG FASTING 82 mg/dL 70-100 N [facility] ID Date Data Source [id number] 02/06/2020 01:44:34 PM EDT [facility] Measurements & CalculationsHeight: 63 inches (5 ft. [...] PMPatient History Medical History:AnxietyDepressionAsthmaSeizuresLung NodulesMigrainesSurgical History: section s7RvijqndcnwyCLBWT&CColonoscopy Endoscopy "cancer removed from uterus"Family History:No known [...] during this visit, including review of any djfx-zex-hxmaggx medications, herbal therapies, and/or supplements.Allergy ReviewAllergy List [...] & Plan Problems:Added: Chronic tension-type headache (ICD-339.12) (KMF93-A26.229) Assessment: Instructions: Update labs. Continue current medications as prescribed by your neurologist. Reviewed the role of emotional stress, physical tension, and worsening headaches. Please try to add massage, heating, gentle stretching, yoga.Assessed:Numbness of lower limb (ICD-782.0) (YQO61-A59.0) Assessment: Instructions: As above.Chest pain, unspecified (TJY03-A80.9) Assessment: Instructions: Will monitor, appears secondary to anxiety. EKG and CT chest do not correlate with complaint of chest pain.Bipolar II disorder (ICD-296.89) (PZE33-G32.81) Assessment: Instructions: Continue per your mental health specialists.Anxiety (ICD-300.00) (YBN81-N36.9) Assessment: Instructions: Significant heightened anxiety at this time with no prn medication that I can see. Will give her a few days worth of Klonipin to get her to Dr. Izaguirre's appt on 02/12/2020. Reiterated medication compliance and truthfullness at all times about all medications both prescribed and supplemental.Lung nodule (ICD-518.89) (LOX26-Y94.8) Assessment: Instructions: Repeat CT chest 04/2020 for [...] (Critical)* ASPRIN (Critical)DOXYCYCLINE (Moderate)MOTRIN (Mild)Orders:COMP METABOLIC PANEL [CPT-69245] CBC W/DIFF [CPT-29993] Adult - Ofc Vst, EST, Level III [CPT-63331] Follow-Up Return to clinic: as needed, as scheduled for follow upClinical Visit Summary CompletedMedications:CLONAZEPAM 1 MG ORAL TABLET (CLONAZEPAM) Take 1 tablet q 8 hrs prn anxiety; MDD 3mg #12[Tablet] x 0 Route:ORAL Entered and Authorized by: Jaqueline BOWIE Method used: Electronically to [facility]* (retail) [address] [place] [address] Fax: Note to Pharmacy: Route: ORAL; Indications: BIPOLAR II DISORDER RxID: [id number] signed by Jaqueline BOWIE on 02/12/2020 at 10:09 AM Name Value Range Interpretation Code Description Data Ariane rce(s) Supporting Document(s) ID Date Data Source [id number] 01/13/2020 12:56:51 PM EDT [facility] Measurements & CalculationsHeight: 63 inches 160.02 cm [...] PMPatient History Medical History:AnxietyDepressionAsthmaSeizuresLung NodulesMigrainesSurgical History: section o2LbzpixldsqxICWGO&CColonoscopy Endoscopy "cancer removed from uterus"Family History:No known family historySocial/Personal History: Advised to Quit/Tobacco Education: YesChief Complainter follow upHistory of Present Illness (HPI)Pt is a 49 y/o female, presents for [facility] ER/hospital follow-up.Pt was admitted to [facility] ER 01/08/2020-01/09/2020 for altered mental status. Pt was transferred by EMS from [facility], where she had presented for an [...] scheduled with her neurologist on 01/19/2020 in [place]. Pt reports she typically take Soma twice [...] during this visit, including review of any izyg-bmz-runyngr medications, herbal therapies, and/or supplements.Allergy ReviewAllergy List [...] ssment & Plan Problems:Added: Chest pain, unspecified (KEB76-U88.9) Assessment: Instructions: EKG did not show any acute coronary concerns today, sinus rhyhtm, normal EKG per automated report. ER for chest pain lasting more than a few fleeting seconds/minutes. Reiterated the importance of ER for chest pain that comes on suddenly and lasts all day like yesterday.Numbness of lower limb (ICD-782.0) (RQT84-J58.0) Assessment: Instructions: Please discuss with your neurologist. This is not new in the last few days, present for > 1 month and unchanged.Assessed:Bipolar II disorder (ICD-296.89) (HVZ73-C11.81) Assessment: Instructions: Continue per Dr. Izaguirre as scheduled tomorrow.Post traumatic stress disorder (ICD-309.81) (RXU72-V11.10) Assessment: Instructions: As above.SEIZURE DISORDER (ICD-780.39) (ZEN69-Q58.9) Assessment: Instructions: Continue per your neurologist. Keep appt as scheduled 01/19/2020.Removed:Generalized skin eruption due to drugs and medicaments taken internally & Adverse effect of unspecified drugs, medicaments and biological substances, initial encounter (ICD-693.0) (ICD10- L27.0), Acute upper respiratory infection, unspecified (UUO63-Y17.9), Bipolar Disorder (ICD-296.80) (ODH05-A88.9)Patient Instructions/Care Plan: Bipolar II disorder: Continue per [...] least 12 leads; with interpretation and report [CPT-77081] Adult - Ofc Vst, EST, Level III [CPT-49787] Follow-Up Return to clinic: in 3 months for follow upAdditional Follow-Up: 3 month follow-up with Dr. Chapmaninical Visit Summary Completed Name Value Range Interpretation Code Description Data Ariane rce(s) Supporting Document(s) ID Date Data Source [id number] 12/09/2019 10:17:52 AM [facility] Measurements & CalculationsHeight: 66 inches [...] AMPatient History Medical History:AnxietyDepressionAsthmaSeizuresLung NodulesMigrainesSurgical History: section d3DptovigqnybQILVY&CColonoscopy Endoscopy "cancer removed from uterus"Family History:No known [...] during this visit, including review of any hhqx-koo-pazwxhj medications, herbal therapies, and/or supplements.Allergy ReviewAllergy List [...] GoodAssessment & Plan Problems:Added: Bipolar Disorder (ICD-296.80) (SFO58-S83.9)Assessed:Bipolar II disorder (ICD- 296.89) (AQB09-V63.81) Assessment: Instructions: Continue per your mental health specialists. I will send a note to Dr. Izaguirre regarding your venlaf axine and clarifying that dose.Hypothyroidism, unspecified (APW96-E22.9) Assessment: Instructions: Stable on current medication dose. No changes at this time.Hyperlipidemia, unspecified (PVJ47-G21.5) Assessment: Instructions: Stable on current medication dose. No changes at this time.SEIZURE DISORDER (ICD-780.39) (TKB62-A40.9) Assessment: Instructions: Call your neurologist TODAY to [...] (Mild)Orders:Adult - Ofc Vst, EST, Level III [CPT-10567] Follow-Up Return to clinic: in 90 days for follow upAdditional Follow-Up: hypothyroidClinical Visit Summary CompletedPatient in hospice care: no] Name Value Range Interpretation Code Description Data Ariane rce(s) Supporting Document(s) ID Date Data Source [id number] 12/03/2019 11:57:00 AM EST [facility] Name Value Range Interpretation Code Description Data Ariane rce(s) Supporting Document(s) T4, FREE 1.43 ng/dL 0.76-1.46 N [facility] TSH 0.395 microintl units/mL 0.358-3.740 N [facility] ID Date Data Source [id number] 10/16/2019 04:04:52 PM [facility] Measurements & CalculationsHeight: 66 inches [...] (ER) or urgent care clinic? No - [facility] EREmergency room (ER) or urgent care [...] PMPatient History Medical History:AnxietyDepressionAsthmaSeizuresLung NodulesMigrainesSurgical History: section i8CxdfzoxjiraMWOKDvNAwxateaoqgs Endoscopy "cancer removed from uterus"Family History:No known family historySocial/Personal History: Smoking Status: current every day smokerAdvised to Quit/Tobacco Education: YesChief Complaintfollow-up visitHistory of Present Illness (HPI)Telemedicine visit with patient's location at [facility] and provider's location at offsite office. [...] during this visit, including review of any hrqe-bmt-trdjeao medications, herbal therapies, and/or supplements.Allergy ReviewAllergy List [...] report any significant side effects.Bipolar Disorder (ICD-296.80) (DOX08-L02.9) Assessment: Instructions: Please make sure to follow up with Lisha as scheduled and with Dr. Stafford as scheduled.Generalized skin eruption due to drugs and medicaments taken internally & Adverse effect of unspecified drugs, medicaments and biological substances, initial encounter (ICD-693.0) (ICD10- L27.0) Assessment: Triamcinilone.Bipolar Disorder (ICD-296.80) (KBI43-T57.9) Assessment: Has appt set up for follow [...] EXTERNAL PREDNISONE 10 MG ORAL TABLET Qty: [id number] Refills: 60[Tube] To: TRIAMCINOLONE ACETONIDE 0.1 % EXTERNAL OINTMENT-Apply to area around mouth twice per day Qty: 60[Tube] Refills: 0Allergies:PENICILLIN (Critical)* ASPRIN (Critical)DOXYCYCLINE (Moderate)MOTRIN (Mild)Orders:Office Visit - Established, Level 3 [CPT-01966FE] Follow-Up Return to clinic: for appt with Juanita in November Clinical Visit Summary Completed Name Value Range Interpretation Code Description Data Ariane rce(s) Supporting Document(s) ID Date Data Source [id number] 10/09/2019 10:41:00 AM [facility] (Miriam cabello [facility], ) Name Value Range Interpretation Code Description Data Ariane rce(s) Supporting Document(s) Cobalamin (Vitamin B12) [Mass/volume] in Serum or Plasma 421 pg/ mL 247-911 Normal (applies to non-numeric results) [facility] ([facility]) VITAMIN B12 NORMAL RANGE NORMAL 247 - 911 PG/ML INDETERMINATE 211 - 246 PG/ML DEFICIENT LESS THAN 211 PG/ML Gastrin [Mass/volume] in Serum or Plasma 46 pg/mL 0-115 Normal (applies to non- numeric results) [facility] ([facility]) Siemens ManageIQ 2000 Immunochemiluminom etric assay (ICMA) . Values obtained with different assay methods or kits cannot be used interchangeably. Results cannot be interpreted as absolute evidence of the presence or absence of malignant disease. Intrinsic factor blocking Ab [Units/volume] in Serum 1.0 AU/mL 0.0-1.1 Normal (applies to non-numeric results) [facility] ([facility] System) Performed at: - [facility] [id number] Electrical Engineering Draftsperson: Analia Corcoran MD, Phone: [phone] Performed at: - [facility] [address] [id number] Electrical Engineering Draftsperson: Becky Carter MD, Phone: [phone] Parietal cell Ab [Units/volume] in Serum 1.5 units 0.0-20. 0 Normal (applies to non-numeric results) [facility] ([facility]) Negative 0.0 - 20.0 Equivocal 20.1 - 24.9 Positive >24.9 . Parietal Cell Antibodies are found in 90% of patients with pernicious anemia and 30% of first degree relatives with pernicious anemia. ID Date Data Source [id number] 09/19/2019 08:50:00 AM EST [facility] Name Value Range Interpretation Code Description Data Ariane [facility](s) Supporting Document(s) T4, FREE 1.27 ng/dL 0.76-1.46 N [facility] y Health TSH 0.093 microintl units/mL 0.358-3.740 L [facility] ID Date Data Source [id number] 09/19/2019 08:45:00 AM EST [facility] ([facility], ) Name Value Range Interpretation Code Description Data Ariane rce(s) Supporting Document(s) Gastrin [Mass/volume] in Serum or Plasma 148 pg/mL 0-115 Above high normal [facility] Siemens Immulite 2000 Immunochemiluminom etric assay (ICMA) . Values obtained with different assay methods or kits cannot be used interchangeably. Results cannot be interpreted as absolute evidence of the presence or absence of malignant disease. Chromogranin A [Moles/volume] in Serum or Plasma 4 nmol/L 0-5 Normal (applies to non-numeric results) [facility] ([facility], ) Chromogranin A performed by eZelleron jonathan methodology. . Values obtained with different assay methods or kits cannot be used interchangeably. Performed at: [address] [id number] Electrical Engineering Draftsperson: Analia Corcoran MD, Phone: [phone] ID Date Data Source [id number] 09/16/2019 10:01:46 AM [facility] Measurements & CalculationsHeight: 66 inches (5 ft. 6 in.) 167.64 cm Weight: 132 pounds 60 kg Body Mass Index (BMI): 21.38BMI Interpretation: Healthy WeightBody Surface Area (BSA): 1.68Weight Management Education Done (Nutrition/Physical Activity)Vital SignsTemperature: 97.5F 36.39C oral Pulse Rate: 106 beats/minuteRespiratory Rate: 16 respirations/minuteBlood Pressure: 105/83 right arm sitting automaticO2 Saturation: 97% room airVital Signs performed by: Milvia Fnoseca MA, September 16, 2019 10:02 AMInitial Intake Information from: patientRoom #: 12Infectious Disease- Travel Have you or your sexual partner travelled outside of the country recently? NoSmoking, Tobacco or Smoke Exposure StatusSmoke Status: current every day smokerTobacco Use: YesAdv to Quit: YesPassive Smoke Exposure: YesMenstrual HistoryComments: menopause Healthcare HistorySince your last office visit...Have you been admitted to the hospital? Yes - [facility] Hospital admission date reported today: 09/13/2019Have you been to an emergency room (ER) or urgent care clinic? No - [facility] EREmergency room (ER) or urgent care date reported today: 03/29/2019Have you seen another healthcare provider? [facility] NoIntake performed [...] AMPatient History Medical History:AnxietyDepressionAsthmaSeizuresLung NodulesMigrainesSurgical History: section x3EysiqqhxaieDANZQzYBuibdrkoeev Endoscopy "cancer removed from uterus"Family History:No known family historySocial/Personal His tory: Smoking Status: current every day smokerAdvised to Quit/Tobacco Education: YesChief ComplaintIMU- Mental health History of Present Illness (HPI)49 y/o female here for [facility] Hospital D/C. Pt states she stil has [...] during this visit, including review of any kfrh-lyg-nbhjvhn medications, herbal therapies, and/or supplements.Allergy ReviewAllergy List [...] how to take the medication appropriately.DEPRESSION (ICD-311) (EGP28-J66.9) Assessment: Instructions: Follow-up as scheduled 09/18/19 with behavioral health.Anxiety (ICD-300.00) (FKQ52-A73.9) Assessment: Instructions: Follow- up as scheduled 09/18/19 [...] (Mild)Orders:Adult - Ofc Vst, EST, Level III [CPT-41002] Follow-Up Return to clinic: in 3 months for follow upMedications:PREDNISONE 10 MG ORAL TABLET (PREDNISONE) Take 3 tablets once daily for 5 days #15[Tablet] x 0 Route:ORAL Entered and Authorized by: Juanita SCHULZ Electronic ally signed by: Juanita SCHULZ on 09/16/2019 Method used: Electronically to [facility]* (retail) [address] [place] [address] Note to Pharmacy: Route: ORAL; RxID: [id number] signed by Juanita SCHULZ on 09/19/2019 at 11:44 AM Name Value Range Interpretation Code Description Data Ariane rce(s) Supporting Document(s) Procedure Social History Code Duration Value Status Description Data Source(s ) Smoking 10/11/2020 12:00:00 AM EST Patient is a former smoker completed Patient is a former smoker [facility] ([facility], ) Smoking 11/10/2019 12:00:00 AM EST Unknown if ever smoked comp leted Unknown if ever smoked [facility] ([facility]) Smoking 10/29/2019 12:00:00 AM EST Unknown if ever smoked comp leted Unknown if ever smoked [facility] ([facility]) Smoking 10/17/2019 12:00:00 AM EST Unknown if ever smoked comp leted Unknown if ever smoked [facility] ([facility]) Smoking 10/16/2019 12:00:00 AM EST Unknown if ever smoked comp leted Unknown if ever smoked [facility] ([facility]) Smoking 09/23/2019 12:00:00 AM EST Unknown if ever smoked comp leted Unknown if ever smoked [facility] ([facility]) 09/15/2019 12:00:00 AM EST Current Cigarette Smoker 1 Pack Daily completed Current Cigarette Smoker 1 Pack Daily [facility] ([facility]) Vital Signs ID Date Data Source UNK Name Value Range Interpretation Code Description Data Source(s) Body weight 2435.2 [oz_av] 2435.2 [oz_av] ATHEN A ([facility]) Body mass index (BMI) [Ratio] 27 kg/m2 27 kg/ m2 [facility] ([facility]) Body height 63 [in_i] 63 [in_i] [facility] ([facility]) Body surface area Derived from formula 1.70 m2 1.70 m2 [facility] Body weight 67.133 kg 67.133 kg [facility] ([facility]) [place] body weight 115 [lb_av] 115 [lb_av] MEDEN T ([facility]) Body mass index (BMI) [Ratio] 26.2 kg/m2 26.2 k g/m2 [facility]) Body weight 148.00 [lb_av] 148.00 [lb_av] MEDEN T ([facility]) Body height 63 [in_i] 63 [in_i] [facility]) 5'3" Oxygen saturation in Arterial blood by Pulse oximetry 98 % 98 % [facility] ([facility]) Room Air Heart rate 82 /min 82 /min [facility]) Diastolic blood pressure 76 mm[Hg] 76 mm[Hg] [facility]) Systolic blood pressure 130 mm[Hg] 130 mm[Hg] M [facility]ENT ([facility]) Body surface area Derived from formula 1.68 m2 1.68 m2 [facility] Body weight 65.318 kg 65.318 kg [facility] ([facility]) [place] body weight 115 [lb_av] 115 [lb_av] MEDEN T ([facility]) Body mass index (BMI) [Ratio] 25.5 kg/m2 25.5 k g/m2 [facility] ([facility]) Body weight 144.00 [lb_av] 144.00 [lb_av] MEDEN T ([facility]) Body height 63 [in_i] 63 [in_i] [facility] ([facility]) 5'3" Oxygen saturation in Arterial blood by Pulse oximetry 98 % 98 % [facility] ([facility]) Room Air Heart rate 109 /min 109 /min [facility] ([facility]) Diastolic blood pressure 70 mm[Hg] 70 mm[Hg] [facility] ([facility]) Systolic blood pressure 120 mm[Hg] 120 mm[Hg] [facility] ([facility]) Body surface area Derived from formula 1.69 m2 1.69 m2 [facility] ([facility]) Body weight 66.226 kg 66.226 kg [facility] ([facility]) [place] body weight 115 [lb_av] 115 [lb_av] MEDEN T ([facility]) Body mass index (BMI) [Ratio] 25.9 kg/m2 25.9 k g/m2 [facility] ([facility]) Body weight 146.00 [lb_av] 146.00 [lb_av] MEDEN T ([facility]) Body height 63 [in_i] 63 [in_i] [facility] ([facility]) 5'3" Oxygen saturation in Arterial blood by Pulse oximetry 98 % 98 % [facility] ([facility]) Room Air Heart rate 100 /min 100 /min [facility] ([facility]) Diastolic blood pressure 80 mm[Hg] 80 mm[Hg] [facility] ([facility]) Systolic blood pressure 140 mm[Hg] 140 mm[Hg] [facility] Body weight 2370 [oz_av] 2370 [oz_av] [facility] ([facility]) Systolic blood pressure 117 mm[Hg] 117 mm[Hg] A THENA ([facility]) Body mass index (BMI) [Ratio] 26.2 kg/m2 26.2 k g/m2 [facility] ([facility]) Body weight 2370 [oz_av] 2370 [oz_av] [facility] ([facility]) Systolic blood pressure 117 mm[Hg] 117 mm[Hg] [facility] Body mass index (BMI) [Ratio] 26.2 kg/m2 26.2 k g/m2 [facility] ([facility]) Body height 63 [in_i] 63 [in_i] [facility] ([facility]) Diastolic blood pressure 74 mm[Hg] 74 mm[Hg] [facility] ([facility]) Body height 63 [in_i] 63 [in_i] [facility] ([facility]) Diastolic blood pressure 74 mm[Hg] 74 mm[Hg] [facility] ([facility]) Body weight 2370 [oz_av] 2370 [oz_av] [facility] ([facility]) Systolic blood pressure 117 mm[Hg] 117 mm[Hg] A [facility] ([facility]) Body mass index (BMI) [Ratio] 26.2 kg/m2 26.2 k g/m2 [facility] ([facility]) Body height 63 [in_i] 63 [in_i] [facility] ([facility]) Diastolic blood pressure 74 mm[Hg] 74 mm[Hg] [facility] ([facility]) Body weight 2370 [oz_av] 2370 [oz_av] [facility] ([facility]) Systolic blood pressure 117 mm[Hg] 117 mm[Hg] A THEN ([facility]) Body mass index (BMI) [Ratio] 26.2 kg/m2 26.2 k g/m2 [facility] ([facility]) Body height 63 [in_i] 63 [in_i] [facility] ([facility]) Diastolic blood pressure 74 mm[Hg] 74 mm[Hg] [facility] ([facility]) Body surface area Derived from formula 1.70 m2 1.70 m2 [facility] ([facility]) Body weight 67.133 kg 67.133 kg [facility] ([facility], ) [place] body weight 115 [lb_av] 115 [lb_av] [facility] ([facility]) Body mass index (BMI) [Ratio] 26.2 kg/m2 26.2 k g/m2 [facility] ([facility]) Body weight 148.00 [lb_av] 148.00 [[facility]_av] [facility] Body height 63 [in_i] 63 [in_i] [facility] ([facility], ) 5'3" Diastolic blood pressure 78 mm[Hg] 78 mm[Hg] [facility] ([facility]) Systolic blood pressure 110 mm[Hg] 110 mm[Hg] M HARMONY ([facility]) Body weight 2257 [oz_av] 2257 [oz_av] [facility] ([facility]) Systolic blood pressure 114 mm[Hg] 114 mm[Hg] A [facility] ([facility]) Body mass index (BMI) [Ratio] 25 kg/m2 25 kg/ m2 [facility] ([facility]) Body height 63 [in_i] 63 [in_i] [facility] ([facility]) Diastolic blood pressure 80 mm[Hg] 80 mm[Hg] [facility] ([facility]) Body weight 2257 [oz_av] 2257 [oz_av] [facility] ([facility]) Systolic blood pressure 114 mm[Hg] 114 mm[Hg] A [facility] ([facility]) Body mass index (BMI) [Ratio] 25 kg/m2 25 kg/ m2 [facility] ([facility]) Body height 63 [in_i] 63 [in_i] [facility] ([facility]) Diastolic blood pressure 80 mm[Hg] 80 mm[Hg] [facility] ([facility]) Body weight 2257 [oz_av] 2257 [oz_av] [facility] ([facility]) Systolic blood pressure 114 mm[Hg] 114 mm[Hg] A [facility] ([facility]) Body mass index (BMI) [Ratio] 25 kg/m2 25 kg/ m2 [facility] ([facility]) Body height 63 [in_i] 63 [in_i] [facility] ([facility]) Diastolic blood pressure 80 mm[Hg] 80 mm[Hg] [facility] ([facility]) Body weight 2257 [oz_av] 2257 [oz_av] [facility] ([facility]) Systolic blood pressure 114 mm[Hg] 114 mm[Hg] A [facility] ([facility]) Body mass index (BMI) [Ratio] 25 kg/m2 25 kg/ m2 [facility] ([facility]) Body height 63 [in_i] 63 [in_i] [facility] ([facility]) Diastolic blood pressure 80 mm[Hg] 80 mm[Hg] [facility] ([facility]) Body weight 2257 [oz_av] 2257 [oz_av] [facility] ([facility]) Systolic blood pressure 114 mm[Hg] 114 mm[Hg] A [facility] ([facility]) Body mass index (BMI) [Ratio] 25 kg/m2 25 kg/ m2 [facility] ([facility]) Body height 63 [in_i] 63 [in_i] [facility] ([facility]) Diastolic blood pressure 80 mm[Hg] 80 mm[Hg] [facility] ([facility]) Body weight 2257 [oz_av] 2257 [oz_av] SAAVGE ([facility]) Systolic blood pressure 114 mm[Hg] 114 mm[Hg] [facility] Body mass index (BMI) [Ratio] 25 kg/m2 25 kg/ m2 [facility] ([facility]) Body height 63 [in_i] 63 [in_i] [facility] ([facility]) Diastolic blood pressure 80 mm[Hg] 80 mm[Hg] [facility] ([facility]) Body weight 2257 [oz_av] 2257 [oz_av] [facility] ([facility]) Systolic blood pressure 114 mm[Hg] 114 mm[Hg] A [facility] ([facility]) Body mass index (BMI) [Ratio] 25 kg/m2 25 kg/ m2 [facility] ([facility]) Body height 63 [in_i] 63 [in_i] [facility] ([facility]) Diastolic blood pressure 80 mm[Hg] 80 mm[Hg] [facility] ([facility]) Body weight 2257 [oz_av] 2257 [oz_av] [facility] ([facility]) Systolic blood pressure 114 mm[Hg] 114 mm[Hg] A THENA ([facility]) Body mass index (BMI) [Ratio] 25 kg/m2 25 kg/ m2 [facility] ([facility]) Body height 63 [in_i] 63 [in_i] [facility] ([facility]) Diastolic blood pressure 80 mm[Hg] 80 mm[Hg] [facility] ([facility]) Body weight 2257 [oz_av] 2257 [oz_av] [facility] ([facility]) Systolic blood pressure 114 mm[Hg] 114 mm[Hg] A THENA ([facility]) Body mass index (BMI) [Ratio] 25 kg/m2 25 kg/ m2 [facility] ([facility]) Body height 63 [in_i] 63 [in_i] [facility] ([facility]) Diastolic blood pressure 80 mm[Hg] 80 mm[Hg] [facility] ([facility]) Body weight 62.597 kg 62.597 kg [facility] ([facility], ) [place] body weight 115 [lb_av] 115 [lb_av] MEDEN T ([facility], ) Body mass index (BMI) [Ratio] 24.4 kg/m2 24.4 k g/m2 [facility] ([facility], ) Body weight 138.00 [lb_av] 138.00 [lb_av] MEDEN T ([facility], ) Body height 63 [in_i] 63 [in_i] [facility] ([facility], ) 5'3" Oxygen saturation in Arterial blood by Pulse oximetry 98 % 98 % [facility] Room Air Heart rate 78 /min 78 /min [facility] ([facility], ) Diastolic blood pressure 90 mm[Hg] 90 mm[Hg] [facility] ([facility], ) Systolic blood pressure 130 mm[Hg] 130 mm[Hg] [facility] Body weight 64.411 kg 64.411 kg [facility] ([facility]) [place] body weight 115 [lb_av] 115 [lb_av] [facility] Body mass index (BMI) [Ratio] 25.2 kg/m2 25.2 k g/m2 [facility] ([facility]) Body weight 142.00 [lb_av] 142.00 [lb_av] [facility] Body height 63 [in_i] 63 [in_i] [facility] ([facility]) 5'3" Oxygen saturation in Arterial blood by Pulse oximetry 99 % 99 % [facility] ([facility]) Room Air Heart rate 70 /min 70 /min [facility] ([facility]) Diastolic blood pressure 70 mm[Hg] 70 mm[Hg] [facility] ([facility]) Systolic blood pressure 110 mm[Hg] 110 mm[Hg] [facility] Body weight 2104 [oz_av] 2104 [oz_av] [facility] ([facility]) Body height 63 [in_i] 63 [in_i] [facility] ([facility]) Body weight 2104 [oz_av] 2104 [oz_av] [facility] ([facility]) Body height 63 [in_i] 63 [in_i] [facility] ([facility]) Body weight 2104 [oz_av] 2104 [oz_av] [facility] ([facility]) Body height 63 [in_i] 63 [in_i] [facility] ([facility]) Body weight 2104 [oz_av] 2104 [oz_av] [facility] ([facility]) Body height 63 [in_i] 63 [in_i] [facility] ([facility]) Body weight 2104 [oz_av] 2104 [oz_av] [facility] ([facility]) Body height 63 [in_i] 63 [in_i] [facility] ([facility]) Body weight 2104 [oz_av] 2104 [oz_av] [facility] ([facility]) Body height 63 [in_i] 63 [in_i] [facility] ([facility]) Body weight 2104 [oz_av] 2104 [oz_av] [facility] ([facility]) Body height 63 [in_i] 63 [in_i] [facility] ([facility]) Body weight 2104 [oz_av] 2104 [oz_av] [facility] ([facility]) Body height 63 [in_i] 63 [in_i] [facility] ([facility]) Body weight 2104 [oz_av] 2104 [oz_av] [facility] ([facility]) Body height 63 [in_i] 63 [in_i] [facility] ([facility]) Body weight 2104 [oz_av] 2104 [oz_av] [facility] ([facility]) Body height 63 [in_i] 63 [in_i] [facility] ([facility]) Body weight 2104 [oz_av] 2104 [oz_av] [facility] ([facility]) Body height 63 [in_i] 63 [in_i] [facility] ([facility]) Body mass index (BMI) [Ratio] 23.2 kg/m2 23.2 k g/m2 [facility] ([facility] ) Body weight 131.00 [lb_av] 131.00 [lb_av] MEDEN T ([facility], ) Body height 63 [in_i] 63 [in_i] [facility] ([facility], ) 5'3" Diastolic blood pressure 64 mm[Hg] 64 mm[Hg] [facility] ([facility] ) Systolic blood pressure 104 mm[Hg] 104 mm[Hg] M HARMONY ([facility], ) Body weight 59.422 kg 59.422 kg [facility]JACQU[facility]INE ([facility], ) [place] body weight 115 [lb_av] 115 [lb_av] MEDEN T ([facility] ) Body weight 1960 [oz_av] 1960 [oz_av] [facility] ([facility]) Body height 63 [in_i] 63 [in_i] [facility] ([facility]) Body weight 1960 [oz_av] 1960 [oz_av] [facility] ([facility]) Body height 63 [in_i] 63 [in_i] [facility] ([facility]) Body weight 1960 [oz_av] 1960 [oz_av] [facility] ([facility]) Body height 63 [in_i] 63 [in_i] [facility] ([facility]) Body weight 1960 [oz_av] 1960 [oz_av] [facility] ([facility]) Body height 63 [in_i] 63 [in_i] [facility] ([facility]) Body weight 1960 [oz_av] 1960 [oz_av] [facility] ([facility]) Body height 63 [in_i] 63 [in_i] [facility] ([facility]) Body weight 1960 [oz_av] 1960 [oz_av] [facility] ([facility]) Body height 63 [in_i] 63 [in_i] [facility] ([facility]) Body weight 1960 [oz_av] 1960 [oz_av] [facility] ([facility]) Body height 63 [in_i] 63 [in_i] [facility] ([facility]) Body weight 1960 [oz_av] 1960 [oz_av] [facility] ([facility]) Body height 63 [in_i] 63 [in_i] [facility] ([facility]) Body weight 1960 [oz_av] 1960 [oz_av] [facility] ([facility]) Body height 63 [in_i] 63 [in_i] [facility] ([facility]) Body weight 1960 [oz_av] 1960 [oz_av] [facility] ([facility]) Body height 63 [in_i] 63 [in_i] [facility] ([facility]) Body weight 1960 [oz_av] 1960 [oz_av] [facility] ([facility]) Body height 63 [in_i] 63 [in_i] [facility] ([facility]) Body weight 53.978 kg 53.978 kg [facility] ([facility], ) Body mass index (BMI) [Ratio] 21.1 kg/m2 21.1 k g/m2 MEDJACQUELINE ([facility], ) Body weight 119.00 [lb_av] 119.00 [lb_av] NESSA Gamez ([facility]) Body height 63 [in_i] 63 [in_i] [facility] ([facility], ) 5'3" Diastolic blood pressure 70 mm[Hg] 70 mm[Hg] [facility] ([facility]) Systolic blood pressure 120 mm[Hg] 120 mm[Hg] Bean ANTUNEZ ([facility], ) Body weight 1920 [oz_av] 1920 [oz_av] [facility] ([facility]) Systolic blood pressure 99 mm[Hg] 99 mm[Hg] A [facility] ([facility]) Body height 63 [in_i] 63 [in_i] [facility] ([facility]) Diastolic blood pressure 68 mm[Hg] 68 mm[Hg] [facility] ([facility]) Body weight 1920 [oz_av] 1920 [oz_av] [facility] ([facility]) Systolic blood pressure 99 mm[Hg] 99 mm[Hg] [facility] Body height 63 [in_i] 63 [in_i] [facility] ([facility]) Diastolic blood pressure 68 mm[Hg] 68 mm[Hg] [facility] ([facility]) Body weight 1920 [oz_av] 1920 [oz_av] [facility] ([facility]) Systolic blood pressure 99 mm[Hg] 99 mm[Hg] [facility] Body height 63 [in_i] 63 [in_i] [facility] ([facility]) Diastolic blood pressure 68 mm[Hg] 68 mm[Hg] [facility] ([facility]) Body weight 1920 [oz_av] 1920 [oz_av] [facility] ([facility]) Systolic blood pressure 99 mm[Hg] 99 mm[Hg] [facility] Body height 63 [in_i] 63 [in_i] [facility] ([facility]) Diastolic blood pressure 68 mm[Hg] 68 mm[Hg] [facility] ([facility]) Body weight 1920 [oz_av] 1920 [oz_av] [facility] ([facility]) Systolic blood pressure 99 mm[Hg] 99 mm[Hg] [facility] Body height 63 [in_i] 63 [in_i] [facility] ([facility]) Diastolic blood pressure 68 mm[Hg] 68 mm[Hg] [facility] ([facility]) Body weight 1920 [oz_av] 1920 [oz_av] [facility] ([facility]) Systolic blood pressure 99 mm[Hg] 99 mm[Hg] [facility] Body height 63 [in_i] 63 [in_i] [facility] ([facility]) Diastolic blood pressure 68 mm[Hg] 68 mm[Hg] [facility] ([facility]) Body weight 1920 [oz_av] 1920 [oz_av] [facility] ([facility]) Systolic blood pressure 99 mm[Hg] 99 mm[Hg] [facility] Body height 63 [in_i] 63 [in_i] S[facility] ([facility]) Diastolic blood pressure 68 mm[Hg] 68 mm[Hg] S[facility] ([facility]) Body weight 1920 [oz_av] 1920 [oz_av] S[facility] ([facility]) Systolic blood pressure 99 mm[Hg] 99 mm[Hg] A THENA ([facility]) Body height 63 [in_i] 63 [in_i] S[place] ([facility]) Diastolic blood pressure 68 mm[Hg] 68 mm[Hg] S[facility] ([facility]) Body weight 1920 [oz_av] 1920 [oz_av] S[facility] ([facility]) Systolic blood pressure 99 mm[Hg] 99 mm[Hg] [facility] Body height 63 [in_i] 63 [in_i] S[place] ([facility]) Diastolic blood pressure 68 mm[Hg] 68 mm[Hg] S[facility] ([facility]) Body weight 1920 [oz_av] 1920 [oz_av] S[facility] ([facility]) Systolic blood pressure 99 mm[Hg] 99 mm[Hg] A THENA ([facility]) Body height 63 [in_i] 63 [in_i] [place] ([facility]) Diastolic blood pressure 68 mm[Hg] 68 mm[Hg] S[facility] ([facility]) Body weight 1920 [oz_av] 1920 [oz_av] S[facility] ([facility]) Systolic blood pressure 99 mm[Hg] 99 mm[Hg] A THENA ([facility]) Body height 63 [in_i] 63 [in_i] [place] ([facility]) Diastolic blood pressure 68 mm[Hg] 68 mm[Hg] S[facility] ([facility]) Body weight 1926.08 [oz_av] 1926.08 [oz_av] ATH ELIZABETH ([facility]) Body height 63 [in_i] 63 [in_i] [place] ([facility]) Body weight 1926.08 [oz_av] 1926.08 [oz_av] ATH ELIZABETH ([facility]) Body height 63 [in_i] 63 [in_i] [place] ([facility]) Body weight 1926.08 [oz_av] 1926.08 [oz_av] ATH ELIZABETH ([facility]) Body height 63 [in_i] 63 [in_i] [place] ([facility]) Body weight 1926.08 [oz_av] 1926.08 [oz_av] ATH ELIZABETH ([facility]) Body height 63 [in_i] 63 [in_i] [place] ([facility]) Body weight 1926.08 [oz_av] 1926.08 [oz_av] ATH ELIZABETH ([facility]) Body height 63 [in_i] 63 [in_i] [place] ([facility]) Body weight 1926.08 [oz_av] 1926.08 [oz_av] ATH ELIZABETH ([facility]) Body height 63 [in_i] 63 [in_i] [place] ([facility]) Body weight 1926.08 [oz_av] 1926.08 [oz_av] ATH ELIZABETH ([facility]) Body height 63 [in_i] 63 [in_i] [place] ([facility]) Body weight 1926.08 [oz_av] 1926.08 [oz_av] ATH ELIZABETH ([facility]) Body height 63 [in_i] 63 [in_i] [facility] ([facility]) Body weight 1926.08 [oz_av] 1926.08 [oz_av] ATH ELIZABETH ([facility]) Body height 63 [in_i] 63 [in_i] [facility] ([facility]) Body weight 1926.08 [oz_av] 1926.08 [oz_av] ATH ELIZABETH ([facility]) Body height 63 [in_i] 63 [in_i] [facility] ([facility]) Body weight 1926.08 [oz_av] 1926.08 [oz_av] ATH ELIZABETH ([facility]) Body height 63 [in_i] 63 [in_i] [facility] ([facility]) Body weight 1968 [oz_av] 1968 [oz_av] [facility] ([facility]) Systolic blood pressure 134 mm[Hg] 134 mm[Hg] [facility] Body height 63 [in_i] 63 [in_i] [place] ([facility]) Diastolic blood pressure 83 mm[Hg] 83 mm[Hg] S[facility] ([facility]) Body weight 1968 [oz_av] 1968 [oz_av] [facility] ([facility]) Systolic blood pressure 134 mm[Hg] 134 mm[Hg] [facility] Body height 63 [in_i] 63 [in_i] [place] ([facility]) Diastolic blood pressure 83 mm[Hg] 83 mm[Hg] S[facility] ([facility]) Body weight 1968 [oz_av] 1968 [oz_av] [facility] ([facility]) Systolic blood pressure 134 mm[Hg] 134 mm[Hg] [facility] Body height 63 [in_i] 63 [in_i] [place] ([facility]) Diastolic blood pressure 83 mm[Hg] 83 mm[Hg] S[facility] ([facility]) Body weight 1968 [oz_av] 1968 [oz_av] [facility] ([facility]) Systolic blood pressure 134 mm[Hg] 134 mm[Hg] [facility] Body height 63 [in_i] 63 [in_i] S[facility] ([facility]) Diastolic blood pressure 83 mm[Hg] 83 mm[Hg] ASVAGE ([facility]) Body weight 1968 [oz_av] 1968 [oz_av] [facility] ([facility]) Systolic blood pressure 134 mm[Hg] 134 mm[Hg] [facility] Body height 63 [in_i] 63 [in_i] [place] ([facility]) Diastolic blood pressure 83 mm[Hg] 83 mm[Hg] [facility] ([facility]) Body weight 1967 [oz_av] 1967 [oz_av] [facility] ([facility]) Systolic blood pressure 134 mm[Hg] 134 mm[Hg] A THENA ([facility]) Body height 63 [in_i] 63 [in_i] [facility] ([facility]) Diastolic blood pressure 83 mm[Hg] 83 mm[Hg] [facility] ([facility]) Body height 63 [in_i] 63 [in_i] [facility] ([facility]) Diastolic blood pressure 83 mm[Hg] 83 mm[Hg] [facility] ([facility]) Body weight 1968 [oz_av] 1968 [oz_av] [facility] ([facility]) Systolic blood pressure 134 mm[Hg] 134 mm[Hg] A THENA ([facility]) Body height 63 [in_i] 63 [in_i] [facility] ([facility]) Diastolic blood pressure 83 mm[Hg] 83 mm[Hg] S[facility] ([facility]) Body weight 1968 [oz_av] 1968 [oz_av] [facility] ([facility]) Systolic blood pressure 134 mm[Hg] 134 mm[Hg] A THENA ([facility]) Body height 63 [in_i] 63 [in_i] [facility] ([facility]) Diastolic blood pressure 83 mm[Hg] 83 mm[Hg] S[facility] ([facility]) Body weight 1968 [oz_av] 1968 [oz_av] [facility] ([facility]) Systolic blood pressure 134 mm[Hg] 134 mm[Hg] A THENA ([facility]) Body height 63 [in_i] 63 [in_i] [facility] ([facility]) Diastolic blood pressure 83 mm[Hg] 83 mm[Hg] S[facility] ([facility]) Body weight 1968 [oz_av] 1968 [oz_av] [facility] ([facility]) Systolic blood pressure 134 mm[Hg] 134 mm[Hg] A THENA ([facility]) Body weight 1968 [oz_av] 1968 [oz_av] [facility] ([facility]) Systolic blood pressure 134 mm[Hg] 134 mm[Hg] A THENA ([facility]) Body height 63 [in_i] 63 [in_i] [facility] ([facility]) Diastolic blood pressure 83 mm[Hg] 83 mm[Hg] [facility] ([facility]) Body weight 1986.08 [oz_av] 1986.08 [oz_av] ATH ELIZABETH ([facility]) Body height 63 [in_i] 63 [in_i] [facility] ([facility]) Body weight 1986.08 [oz_av] 1986.08 [oz_av] ATH ELIZABETH ([facility]) Body height 63 [in_i] 63 [in_i] [facility] ([facility]) Body weight 1986.08 [oz_av] 1986.08 [oz_av] ATH ELIZABETH ([facility]) Body height 63 [in_i] 63 [in_i] [facility] ([facility]) Body weight 1986.08 [oz_av] 1986.08 [oz_av] ATH ELIZABETH ([facility]) Body height 63 [in_i] 63 [in_i] [facility] ([facility]) Body weight 1986.08 [oz_av] 1986.08 [oz_av] ATH ELIZABETH ([facility]) Body height 63 [in_i] 63 [in_i] [facility] ([facility]) Body weight 1986.08 [oz_av] 1986.08 [oz_av] ATH ELIZABETH ([facility]) Body height 63 [in_i] 63 [in_i] [facility] ([facility]) Body weight 1986.08 [oz_av] 1986.08 [oz_av] ATH ELIZABETH ([facility]) Body height 63 [in_i] 63 [in_i] [facility] ([facility]) Body weight 1986.08 [oz_av] 1986.08 [oz_av] ATH ELIZABETH ([facility]) Body height 63 [in_i] 63 [in_i] [facility] ([facility]) Body weight 1986.08 [oz_av] 1986.08 [oz_av] ATH ELIZABETH ([facility]) Body height 63 [in_i] 63 [in_i] [facility] ([facility]) Body weight 1986.08 [oz_av] 1986.08 [oz_av] ATH ELIZABETH ([facility]) Body height 63 [in_i] 63 [in_i] [facility] ([facility]) Body weight 1986.08 [oz_av] 1986.08 [oz_av] ATH ELIZABETH ([facility]) Body height 63 [in_i] 63 [in_i] [place] ([facility]) Body weight 57.607 kg 57.607 kg ALPHONSO ([facility], ) Body mass index (BMI) [Ratio] 22.5 kg/m2 22.5 k g/m2 ALPHONSO ([facility], ) Body weight 127.00 [lb_av] 127.00 [lb_av] NESSA T ([facility], ) Body height 63 [in_i] 63 [in_i] ALPHONSO ([facility], ) 5'3" Diastolic blood pressure 70 mm[Hg] 70 mm[Hg] ALPHONSO ([facility], ) Systolic blood pressure 98 mm[Hg] 98 mm[Hg] Bean ANTUNEZ ([facility], ) Body weight 1986.08 [oz_av] 1986.08 [oz_av] ATH ELIZABETH ([facility]) Body height 63 [in_i] 63 [in_i] S[facility] ([facility]) Body weight 1986.08 [oz_av] 1986.08 [oz_av] ATH ELIZABETH ([facility]) Body height 63 [in_i] 63 [in_i] [facility] ([facility]) Body weight 1986.08 [oz_av] 1986.08 [oz_av] ATH ELIZABETH ([facility]) Body height 63 [in_i] 63 [in_i] S[place] ([facility]) Body weight 1986.08 [oz_av] 1986.08 [oz_av] ATH ELIZABETH ([facility]) Body height 63 [in_i] 63 [in_i] S[place] ([facility]) Body weight 1986.08 [oz_av] 1986.08 [oz_av] ATH ELIZABETH ([facility]) Body height 63 [in_i] 63 [in_i] S[place] ([facility]) Body weight 1986.08 [oz_av] 1986.08 [oz_av] ATH ELIZABETH ([facility]) Body height 63 [in_i] 63 [in_i] S[place] ([facility]) Body weight 1986.08 [oz_av] 1986.08 [oz_av] ATH ELIZABETH ([facility]) Body weight 1986.08 [oz_av] 1986.08 [oz_av] ATH ELIZABETH ([facility]) Body height 63 [in_i] 63 [in_i] S[facility] ([facility]) Body weight 1986.08 [oz_av] 1986.08 [oz_av] ATH ELIZABETH ([facility]) Body height 63 [in_i] 63 [in_i] S[place] ([facility]) Body height 63 [in_i] 63 [in_i] S[facility]AGE ([facility]) Body weight 1986.08 [oz_av] 1986.08 [oz_av] ATH ELIZABETH ([facility]) Body height 63 [in_i] 63 [in_i] S[facility]AGE ([facility]) Body weight 1986.08 [oz_av] 1986.08 [oz_av] ATH ELIZABETH ([facility]) Body height 63 [in_i] 63 [in_i] S[facility] ([facility]) Body weight 2002.08 [oz_av] 2002.08 [oz_av] ATH ELIZABETH ([facility]) Body height 63 [in_i] 63 [in_i] S[facility] ([facility]) Body weight 2002.08 [oz_av] 2002.08 [oz_av] ATH ELIZABETH ([facility]) Body height 63 [in_i] 63 [in_i] S[place] ([facility]) Body weight 2002.08 [oz_av] 2002.08 [oz_av] ATH ELIZABETH ([facility]) Body height 63 [in_i] 63 [in_i] S[facility] ([facility]) Body weight 2002.08 [oz_av] 2002.08 [oz_av] ATH ELIZABETH ([facility]) Body height 63 [in_i] 63 [in_i] S[facility] ([facility]) Body weight 2002.08 [oz_av] 2002.08 [oz_av] ATH ELIZABETH ([facility]) Body height 63 [in_i] 63 [in_i] S[place] ([facility]) Body weight 2002.08 [oz_av] 2002.08 [oz_av] ATH ELIZABETH ([facility]) Body height 63 [in_i] 63 [in_i] S[place] ([facility]) Body weight 2002.08 [oz_av] 2002.08 [oz_av] ATH ELIZABETH ([facility]) Body height 63 [in_i] 63 [in_i] S[place] ([facility]) Body weight 2002.08 [oz_av] 2002.08 [oz_av] ATH ELIZABETH ([facility]) Body height 63 [in_i] 63 [in_i] S[place] ([facility]) Body weight 2002.08 [oz_av] 2002.08 [oz_av] ATH ELIZABETH ([facility]) Body height 63 [in_i] 63 [in_i] S[place] ([facility]) Body weight 2002.08 [oz_av] 2002.08 [oz_av] ATH ELIZABETH ([facility]) Body height 63 [in_i] 63 [in_i] S[place] ([facility]) Body weight 2002.08 [oz_av] 2002.08 [oz_av] ATH ELIZABETH ([facility]) Body height 63 [in_i] 63 [in_i] S[place] ([facility]) Body weight 1910.08 [oz_av] 1910.08 [oz_av] ATH ELIZABETH ([facility]) Systolic blood pressure 120 mm[Hg] 120 mm[Hg] [facility] Body height 63 [in_i] 63 [in_i] S[place]AGE ([facility]) Diastolic blood pressure 79 mm[Hg] 79 mm[Hg] S[facility]AGE ([facility]) Body weight 1910.08 [oz_av] 1910.08 [oz_av] ATH ELIZABETH ([facility]) Systolic blood pressure 120 mm[Hg] 120 mm[Hg] [facility] Body height 63 [in_i] 63 [in_i] S[place]AGE ([facility]) Diastolic blood pressure 79 mm[Hg] 79 mm[Hg] S[facility]AGE ([facility]) Body weight 1910.08 [oz_av] 1910.08 [oz_av] ATH ELIZABETH ([facility]) Systolic blood pressure 120 mm[Hg] 120 mm[Hg] [facility] Body height 63 [in_i] 63 [in_i] SAVGAE ([facility]) Diastolic blood pressure 79 mm[Hg] 79 mm[Hg] SAVAGE ([facility]) Body weight 1910.08 [oz_av] 1910.08 [oz_av] ATH ELIZABETH ([facility]) Systolic blood pressure 120 mm[Hg] 120 mm[Hg] [facility] Body height 63 [in_i] 63 [in_i] SAVAGE ([facility]) Diastolic blood pressure 79 mm[Hg] 79 mm[Hg] S[facility]AGE ([facility]) Body weight 1910.08 [oz_av] 1910.08 [oz_av] ATH ELIZABETH ([facility]) Systolic blood pressure 120 mm[Hg] 120 mm[Hg] [facility] Body height 63 [in_i] 63 [in_i] S[place]AGE ([facility]) Diastolic blood pressure 79 mm[Hg] 79 mm[Hg] S[facility]AGE ([facility]) Body weight 1910.08 [oz_av] 1910.08 [oz_av] ATH ELIZABETH ([facility]) Systolic blood pressure 120 mm[Hg] 120 mm[Hg] A [facility] ([facility]) Body height 63 [in_i] 63 [in_i] SAVAGE ([facility]) Diastolic blood pressure 79 mm[Hg] 79 mm[Hg] S[facility]AGE ([facility]) Body weight 1910.08 [oz_av] 1910.08 [oz_av] ATH ELIZABETH ([facility]) Systolic blood pressure 120 mm[Hg] 120 mm[Hg] A [facility] ([facility]) Body height 63 [in_i] 63 [in_i] SAVAGE ([facility]) Diastolic blood pressure 79 mm[Hg] 79 mm[Hg] S[facility]AGE ([facility]) Body weight 1910.08 [oz_av] 1910.08 [oz_av] ATH ELIZABETH ([facility]) Systolic blood pressure 120 mm[Hg] 120 mm[Hg] A [facility] ([facility]) Body height 63 [in_i] 63 [in_i] S[place] ([facility]) Diastolic blood pressure 79 mm[Hg] 79 mm[Hg] S[facility] ([facility]) Body weight 1910.08 [oz_av] 1910.08 [oz_av] ATH ELIZABETH ([facility]) Systolic blood pressure 120 mm[Hg] 120 mm[Hg] [facility] Body height 63 [in_i] 63 [in_i] S[place] ([facility]) Diastolic blood pressure 79 mm[Hg] 79 mm[Hg] S[facility] ([facility]) Body weight 1910.08 [oz_av] 1910.08 [oz_av] ATH ELIZABETH ([facility]) Systolic blood pressure 120 mm[Hg] 120 mm[Hg] A THENA ([facility]) Body height 63 [in_i] 63 [in_i] S[place] ([facility]) Diastolic blood pressure 79 mm[Hg] 79 mm[Hg] S[facility] ([facility]) Body weight 1910.08 [oz_av] 1910.08 [oz_av] ATH ELIZABETH ([facility]) Systolic blood pressure 120 mm[Hg] 120 mm[Hg] A THENA ([facility]) Body height 63 [in_i] 63 [in_i] S[place]AGE ([facility]) Diastolic blood pressure 79 mm[Hg] 79 mm[Hg] S[facility] ([facility]) Body weight 1896.96 [oz_av] 1896.96 [oz_av] ATH ELIZABETH ([facility]) Body height 63 [in_i] 63 [in_i] S[place]AGE ([facility]) Body weight 1896.96 [oz_av] 1896.96 [oz_av] ATH ELIZABETH ([facility]) Body height 63 [in_i] 63 [in_i] S[place]AGE ([facility]) Body weight 1896.96 [oz_av] 1896.96 [oz_av] ATH ELIZABETH ([facility]) Body height 63 [in_i] 63 [in_i] S[place] ([facility]) Body weight 1896.96 [oz_av] 1896.96 [oz_av] ATH ELIZABETH ([facility]) Body height 63 [in_i] 63 [in_i] S[place] ([facility]) Body weight 1896.96 [oz_av] 1896.96 [oz_av] ATH ELIZABETH ([facility]) Body height 63 [in_i] 63 [in_i] S[place] ([facility]) Body weight 1896.96 [oz_av] 1896.96 [oz_av] ATH ELIZABETH ([facility]) Body height 63 [in_i] 63 [in_i] S[place] ([facility]) Body weight 1896.96 [oz_av] 1896.96 [oz_av] ATH ELIZABETH ([facility]) Body height 63 [in_i] 63 [in_i] S[place] ([facility]) Body weight 1896.96 [oz_av] 1896.96 [oz_av] ATH ELIZABETH ([facility]) Body height 63 [in_i] 63 [in_i] S[place]AGE ([facility]) Body weight 1896.96 [oz_av] 1896.96 [oz_av] ATH ELIZABETH ([facility]) Body height 63 [in_i] 63 [in_i] S[place]AGE ([facility]) Body weight 1896.96 [oz_av] 1896.96 [oz_av] ATH ELIZABETH ([facility]) Body height 63 [in_i] 63 [in_i] S[place] ([facility]) Body weight 1896.96 [oz_av] 1896.96 [oz_av] ATH ELIZABETH ([facility]) Body height 63 [in_i] 63 [in_i] S[place] ([facility]) Body weight 1936 [oz_av] 1936 [oz_av] SAVAGE ([facility]) Body height 63 [in_i] 63 [in_i] SAVAGE ([facility]) Body weight 1936 [oz_av] 1936 [oz_av] SAVAGE ([facility]) Body height 63 [in_i] 63 [in_i] S[facility]AGE ([facility]) Body weight 1936 [oz_av] 1936 [oz_av] S[facility]AGE ([facility]) Body height 63 [in_i] 63 [in_i] S[facility]AGE ([facility]) Body weight 1936 [oz_av] 1936 [oz_av] S[facility] ([facility]) Body height 63 [in_i] 63 [in_i] S[facility]AGE ([facility]) Body weight 1936 [oz_av] 1936 [oz_av] S[facility]AGE ([facility]) Body height 63 [in_i] 63 [in_i] S[facility]AGE ([facility]) Body weight 1936 [oz_av] 1936 [oz_av] S[facility] ([facility]) Body height 63 [in_i] 63 [in_i] S[facility]AGE ([facility]) Body weight 1936 [oz_av] 1936 [oz_av] SAVAGE ([facility]) Body height 63 [in_i] 63 [in_i] SAVAGE ([facility]) Body weight 1936 [oz_av] 1936 [oz_av] S[facility]AGE ([facility]) Body height 63 [in_i] 63 [in_i] SAVAGE ([facility]) Body weight 1936 [oz_av] 1936 [oz_av] SAVAGE ([facility]) Body height 63 [in_i] 63 [in_i] SAVAGE ([facility]) Body weight 1936 [oz_av] 1936 [oz_av] SAVAGE ([facility]) Body height 63 [in_i] 63 [in_i] SAVAGE ([facility]) Body weight 1936 [oz_av] 1936 [oz_av] SAVAGE ([facility]) Body height 63 [in_i] 63 [in_i] S[place]AGE ([facility]) Body weight 1894.08 [oz_av] 1894.08 [oz_av] ATH ELIZABETH ([facility]) Body height 63 [in_i] 63 [in_i] S[place]AGE ([facility]) Body weight 1894.08 [oz_av] 1894.08 [oz_av] ATH ELIZABETH ([facility]) Body height 63 [in_i] 63 [in_i] S[place]AGE ([facility]) Body weight 1894.08 [oz_av] 1894.08 [oz_av] ATH ELIZABETH ([facility]) Body height 63 [in_i] 63 [in_i] S[place]AGE ([facility]) Body weight 1894.08 [oz_av] 1894.08 [oz_av] ATH ELIZABETH ([facility]) Body height 63 [in_i] 63 [in_i] S[place]AGE ([facility]) Body weight 1894.08 [oz_av] 1894.08 [oz_av] ATH ELIZABETH ([facility]) Body height 63 [in_i] 63 [in_i] S[place]AGE ([facility]) Body weight 1894.08 [oz_av] 1894.08 [oz_av] ATH ELIZABETH ([facility]) Body height 63 [in_i] 63 [in_i] S[place]AGE ([facility]) Body weight 1894.08 [oz_av] 1894.08 [oz_av] ATH ELIZABETH ([facility]) Body height 63 [in_i] 63 [in_i] S[place]AGE ([facility]) Body weight 1894.08 [oz_av] 1894.08 [oz_av] ATH ELIZABETH ([facility]) Body height 63 [in_i] 63 [in_i] S[place]AGE ([facility]) Body weight 1894.08 [oz_av] 1894.08 [oz_av] ATH ELIZABETH ([facility]) Body height 63 [in_i] 63 [in_i] S[place]AGE ([facility]) Body weight 1894.08 [oz_av] 1894.08 [oz_av] ATH ELIZABETH ([facility]) Body height 63 [in_i] 63 [in_i] S[place]AGE ([facility]) Body weight 1894.08 [oz_av] 1894.08 [oz_av] ATH ELIZABETH ([facility]) Body height 63 [in_i] 63 [in_i] S[place] ([facility]) Body weight 1897.6 [oz_av] 1897.6 [oz_av] ATHEN A ([facility]) Systolic blood pressure 131 mm[Hg] 131 mm[Hg] A THENA ([facility]) Body height 63 [in_i] 63 [in_i] SAVAGE ([facility]) Diastolic blood pressure 88 mm[Hg] 88 mm[Hg] S[facility]AGE ([facility]) Body weight 1897.6 [oz_av] 1897.6 [oz_av] ATHEN A ([facility]) Systolic blood pressure 131 mm[Hg] 131 mm[Hg] [facility] Body height 63 [in_i] 63 [in_i] SAVAGE ([facility]) Diastolic blood pressure 88 mm[Hg] 88 mm[Hg] S[place] ([facility]) Body weight 1897.6 [oz_av] 1897.6 [oz_av] ATHEN A ([facility]) Systolic blood pressure 131 mm[Hg] 131 mm[Hg] [facility] [facility] Body height 63 [in_i] 63 [in_i] [facility] ([facility]) Diastolic blood pressure 88 mm[Hg] 88 mm[Hg] [facility] ([facility]) Body weight 1897.6 [oz_av] 1897.6 [oz_av] ATHEN A ([facility]) Systolic blood pressure 131 mm[Hg] 131 mm[Hg] [facility] Body height 63 [in_i] 63 [in_i] [facility] ([facility]) Diastolic blood pressure 88 mm[Hg] 88 mm[Hg] [facility] ([facility]) Body weight 1897.6 [oz_av] 1897.6 [oz_av] ATHEN A ([facility]) Systolic blood pressure 131 mm[Hg] 131 mm[Hg] [facility] Body height 63 [in_i] 63 [in_i] [facility] ([facility]) Diastolic blood pressure 88 mm[Hg] 88 mm[Hg] [facility] ([facility]) Body weight 1897.6 [oz_av] 1897.6 [oz_av] ATHEN A ([facility]) Systolic blood pressure 131 mm[Hg] 131 mm[Hg] [facility] Body height 63 [in_i] 63 [in_i] [place] ([facility]) Diastolic blood pressure 88 mm[Hg] 88 mm[Hg] [facility] ([facility]) Body weight 1897.6 [oz_av] 1897.6 [oz_av] ATHEN A ([facility]) Systolic blood pressure 131 mm[Hg] 131 mm[Hg] [facility] Body height 63 [in_i] 63 [in_i] [place] ([facility]) Diastolic blood pressure 88 mm[Hg] 88 mm[Hg] [facility] ([facility]) Body weight 1897.6 [oz_av] 1897.6 [oz_av] ATHEN A ([facility]) Systolic blood pressure 131 mm[Hg] 131 mm[Hg] [facility] Body height 63 [in_i] 63 [in_i] [place] ([facility]) Diastolic blood pressure 88 mm[Hg] 88 mm[Hg] [facility] ([facility]) Body weight 1897.6 [oz_av] 1897.6 [oz_av] ATHEN A ([facility]) Systolic blood pressure 131 mm[Hg] 131 mm[Hg] [facility] Body height 63 [in_i] 63 [in_i] [place] ([facility]) Diastolic blood pressure 88 mm[Hg] 88 mm[Hg] [facility] ([facility]) Body weight 1897.6 [oz_av] 1897.6 [oz_av] ATHEN A ([facility]) Systolic blood pressure 131 mm[Hg] 131 mm[Hg] [facility] Body height 63 [in_i] 63 [in_i] [facility] ([facility]) Diastolic blood pressure 88 mm[Hg] 88 mm[Hg] [facility] ([facility]) Body weight 1897.6 [oz_av] 1897.6 [oz_av] ATHEN A ([facility]) Systolic blood pressure 131 mm[Hg] 131 mm[Hg] [facility] Body height 63 [in_i] 63 [in_i] [facility] ([facility]) Diastolic blood pressure 88 mm[Hg] 88 mm[Hg] [facility] ([facility]) Body weight 1952 [oz_av] 1952 [oz_av] [facility] ([facility]) Systolic blood pressure 100 mm[Hg] 100 mm[Hg] A THENA ([facility]) Body height 66 [in_i] 66 [in_i] [facility] ([facility]) Diastolic blood pressure 71 mm[Hg] 71 mm[Hg] [facility] ([facility]) Body weight 195 [oz_av] 195 [oz_av] [facility] ([facility]) Systolic blood pressure 100 mm[Hg] 100 mm[Hg] A THENA ([facility]) Body height 66 [in_i] 66 [in_i] [facility] ([facility]) Diastolic blood pressure 71 mm[Hg] 71 mm[Hg] [facility] ([facility]) Body weight 195 [oz_av] 195 [oz_av] [facility] ([facility]) Systolic blood pressure 100 mm[Hg] 100 mm[Hg] A THENA ([facility]) Body height 66 [in_i] 66 [in_i] [facility] ([facility]) Diastolic blood pressure 71 mm[Hg] 71 mm[Hg] [facility] ([facility]) Body weight 195 [oz_av] 195 [oz_av] [facility] ([facility]) Systolic blood pressure 100 mm[Hg] 100 mm[Hg] [facility] Body height 66 [in_i] 66 [in_i] [facility] ([facility]) Diastolic blood pressure 71 mm[Hg] 71 mm[Hg] [facility] ([facility]) Body weight 1952 [oz_av] 195 [oz_av] [facility] ([facility]) Systolic blood pressure 100 mm[Hg] 100 mm[Hg] A THENA ([facility]) Body height 66 [in_i] 66 [in_i] [facility] ([facility]) Diastolic blood pressure 71 mm[Hg] 71 mm[Hg] [facility] ([facility]) Body weight 1952 [oz_av] 195 [oz_av] [facility] ([facility]) Systolic blood pressure 100 mm[Hg] 100 mm[Hg] A THENA ([facility]) Body height 66 [in_i] 66 [in_i] [facility] ([facility]) Diastolic blood pressure 71 mm[Hg] 71 mm[Hg] [facility] ([facility]) Body weight 1952 [oz_av] 1952 [oz_av] [facility] ([facility]) Systolic blood pressure 100 mm[Hg] 100 mm[Hg] A THENA ([facility]) Body height 66 [in_i] 66 [in_i] SAVAEG ([facility]) Diastolic blood pressure 71 mm[Hg] 71 mm[Hg] [facility] ([facility]) Body weight 1952 [oz_av] 195 [oz_av] [facility] ([facility]) Systolic blood pressure 100 mm[Hg] 100 mm[Hg] [facility] Body height 66 [in_i] 66 [in_i] [facility] ([facility]) Diastolic blood pressure 71 mm[Hg] 71 mm[Hg] [facility] ([facility]) Body weight 1952 [oz_av] 195 [oz_av] [facility] ([facility]) Systolic blood pressure 100 mm[Hg] 100 mm[Hg] A THENA ([facility]) Body height 66 [in_i] 66 [in_i] [facility] ([facility]) Diastolic blood pressure 71 mm[Hg] 71 mm[Hg] [facility] ([facility]) Body weight 1952 [oz_av] 1952 [oz_av] [facility] ([facility]) Systolic blood pressure 100 mm[Hg] 100 mm[Hg] A THENA ([facility]) Body height 66 [in_i] 66 [in_i] [facility] ([facility]) Diastolic blood pressure 71 mm[Hg] 71 mm[Hg] [facility] ([facility]) Body weight 1952 [oz_av] 195 [oz_av] [facility] ([facility]) Systolic blood pressure 100 mm[Hg] 100 mm[Hg] A THENA ([facility]) Body height 66 [in_i] 66 [in_i] [facility] ([facility]) Diastolic blood pressure 71 mm[Hg] 71 mm[Hg] [facility] ([facility]) Body weight 1904 [oz_av] 1904 [oz_av] [facility] ([facility]) Body height 66 [in_i] 66 [in_i] [facility] ([facility]) Body weight 1904 [oz_av] 1904 [oz_av] [facility] ([facility]) Body height 66 [in_i] 66 [in_i] [facility] ([facility]) Body weight 1904 [oz_av] 1904 [oz_av] [facility] ([facility]) Body height 66 [in_i] 66 [in_i] [facility] ([facility]) Body weight 1904 [oz_av] 1904 [oz_av] [facility] ([facility]) Body height 66 [in_i] 66 [in_i] [facility] ([facility]) Body weight 1904 [oz_av] 1904 [oz_av] [facility] ([facility]) Body height 66 [in_i] 66 [in_i] [facility] ([facility]) Body weight 1904 [oz_av] 1904 [oz_av] [facility] ([facility]) Body height 66 [in_i] 66 [in_i] [facility] ([facility]) Body weight 1904 [oz_av] 1904 [oz_av] [facility] ([facility]) Body height 66 [in_i] 66 [in_i] [facility] ([facility]) Body weight 1904 [oz_av] 1904 [oz_av] [facility] ([facility]) Body height 66 [in_i] 66 [in_i] [facility] ([facility]) Body weight 1904 [oz_av] 1904 [oz_av] [facility] ([facility]) Body height 66 [in_i] 66 [in_i] [facility] ([facility]) Body weight 1904 [oz_av] 1904 [oz_av] [facility] ([facility]) Body height 66 [in_i] 66 [in_i] [facility] ([facility]) Body weight 1904 [oz_av] 1904 [oz_av] [facility] ([facility]) Body height 66 [in_i] 66 [in_i] [facility] ([facility]) Body weight 2048 [oz_av] 2048 [oz_av] [facility] ([facility]) Body height 66 [in_i] 66 [in_i] [facility] ([facility]) Body weight 2048 [oz_av] 2048 [oz_av] [facility] ([facility]) Body height 66 [in_i] 66 [in_i] [facility] ([facility]) Body weight 2048 [oz_av] 2048 [oz_av] [facility] ([facility]) Body height 66 [in_i] 66 [in_i] [facility] ([facility]) Body weight 2048 [oz_av] 2048 [oz_av] [facility] ([facility]) Body height 66 [in_i] 66 [in_i] [facility] ([facility]) Body weight 2048 [oz_av] 2048 [oz_av] [facility] ([facility]) Body height 66 [in_i] 66 [in_i] [facility] ([facility]) Body weight 2048 [oz_av] 2048 [oz_av] [facility] ([facility]) Body height 66 [in_i] 66 [in_i] [facility] ([facility]) Body weight 2048 [oz_av] 2048 [oz_av] [facility] ([facility]) Body height 66 [in_i] 66 [in_i] [facility] ([facility]) Body weight 2048 [oz_av] 2048 [oz_av] [facility] ([facility]) Body height 66 [in_i] 66 [in_i] [facility] ([facility]) Body weight 2048 [oz_av] 2048 [oz_av] [facility] ([facility]) Body height 66 [in_i] 66 [in_i] [facility] ([facility]) Body weight 2048 [oz_av] 2048 [oz_av] [facility] ([facility]) Body height 66 [in_i] 66 [in_i] [facility] ([facility]) Body weight 2047 [oz_av] 2048 [oz_av] [facility] ([facility]) Body height 66 [in_i] 66 [in_i] [facility] ([facility]) Body weight 55.793 kg 55.793 kg [facility] Body mass index (BMI) [Ratio] 21.8 kg/m2 21.8 k g/m2 [facility] ([facility], ) Body weight 123.00 [lb_av] 123.00 [lb_av] MEDEN T ([facility], ) Body height 63 [in_i] 63 [in_i] [facility] ([facility], ) 5'3" Diastolic blood pressure 84 mm[Hg] 84 mm[Hg] [facility] Systolic blood pressure 128 mm[Hg] 128 mm[Hg] M EDENT ([facility], ) Diastolic blood pressure 0 mm[Hg] Normal (applies to non-numeric results) 0 mm[Hg] [facility] ([facility]) Systolic blood pressure 0 mm[Hg] Normal (applies t o non-numeric results) 0 mm[Hg] [facility] ([facility]) Body mass index (BMI) [Ratio] 0.00 kg/m2 No rmal (applies to non-numeric results) 0.00 kg/m2 [facility]) Body weight Measured 0.00 lbs Normal (applies to n on-numeric results) 0.00 lbs [facility] Body height 0.00 in Normal (applies to non-numeric resu lts) 0.00 in [facility] ([facility]) Body weight 2020 [oz_av] 2020 [oz_av] [place] ([facility]) Systolic blood pressure 98 mm[Hg] 98 mm[Hg] A THENA ([facility]) Body height 66 [in_i] 66 [in_i] [facility] ([facility]) Diastolic blood pressure 72 mm[Hg] 72 mm[Hg] [facility] ([facility]) Body weight 2020 [oz_av] 2020 [oz_av] [facility] ([facility]) Systolic blood pressure 98 mm[Hg] 98 mm[Hg] [facility] Body height 66 [in_i] 66 [in_i] [facility] ([facility]) Diastolic blood pressure 72 mm[Hg] 72 mm[Hg] [facility] ([facility]) Body weight 2020 [oz_av] 2020 [oz_av] [facility] ([facility]) Systolic blood pressure 98 mm[Hg] 98 mm[Hg] [facility] Body height 66 [in_i] 66 [in_i] [facility] ([facility]) Diastolic blood pressure 72 mm[Hg] 72 mm[Hg] [facility] ([facility]) Body weight 2020 [oz_av] 2020 [oz_av] [facility] ([facility]) Systolic blood pressure 98 mm[Hg] 98 mm[Hg] A THENA ([facility]) Body height 66 [in_i] 66 [in_i] [facility] ([facility]) Diastolic blood pressure 72 mm[Hg] 72 mm[Hg] [facility] ([facility]) Body weight 2020 [oz_av] 2020 [oz_av] [facility] ([facility]) Systolic blood pressure 98 mm[Hg] 98 mm[Hg] A THENA ([facility]) Body height 66 [in_i] 66 [in_i] [facility] ([facility]) Diastolic blood pressure 72 mm[Hg] 72 mm[Hg] [facility] ([facility]) Body weight 2020 [oz_av] 2020 [oz_av] [facility] ([facility]) Systolic blood pressure 98 mm[Hg] 98 mm[Hg] [facility] Body height 66 [in_i] 66 [in_i] [place] ([facility]) Diastolic blood pressure 72 mm[Hg] 72 mm[Hg] [facility] ([facility]) Body weight 2020 [oz_av] 2020 [oz_av] [facility] ([facility]) Systolic blood pressure 98 mm[Hg] 98 mm[Hg] [facility] Body height 66 [in_i] 66 [in_i] [place] ([facility]) Diastolic blood pressure 72 mm[Hg] 72 mm[Hg] [facility] ([facility]) Body weight 2020 [oz_av] 2020 [oz_av] [facility] ([facility]) Systolic blood pressure 98 mm[Hg] 98 mm[Hg] [facility] Body height 66 [in_i] 66 [in_i] [facility] ([facility]) Diastolic blood pressure 72 mm[Hg] 72 mm[Hg] [facility] ([facility]) Body weight 2020 [oz_av] 2020 [oz_av] [facility] ([facility]) Systolic blood pressure 98 mm[Hg] 98 mm[Hg] [facility] Body height 66 [in_i] 66 [in_i] [facility] ([facility]) Diastolic blood pressure 72 mm[Hg] 72 mm[Hg] [facility] ([facility]) Body weight 2020 [oz_av] 2020 [oz_av] [facility] ([facility]) Systolic blood pressure 98 mm[Hg] 98 mm[Hg] [facility] Body height 66 [in_i] 66 [in_i] [facility] ([facility]) Diastolic blood pressure 72 mm[Hg] 72 mm[Hg] [facility] ([facility]) Body weight 2020 [oz_av] 2020 [oz_av] [facility] ([facility]) Systolic blood pressure 98 mm[Hg] 98 mm[Hg] A THENA ([facility]) Body height 66 [in_i] 66 [in_i] [facility] ([facility]) Diastolic blood pressure 72 mm[Hg] 72 mm[Hg] [facility] ([facility]) Body weight 2055 [oz_av] 2055 [oz_av] [facility] ([facility]) Body height 66 [in_i] 66 [in_i] [facility] ([facility]) Body weight 2055 [oz_av] 2056 [oz_av] [facility] ([facility]) Body height 66 [in_i] 66 [in_i] [facility] ([facility]) Body weight 2055 [oz_av] 2056 [oz_av] [facility] ([facility]) Body height 66 [in_i] 66 [in_i] [facility] ([facility]) Body weight 2055 [oz_av] 2056 [oz_av] [facility] ([facility]) Body height 66 [in_i] 66 [in_i] [facility] ([facility]) Body weight 2055 [oz_av] 205 [oz_av] [facility] ([facility]) Body height 66 [in_i] 66 [in_i] [facility] ([facility]) Body height 66 [in_i] 66 [in_i] [facility] ([facility]) Body weight 2055 [oz_av] 2056 [oz_av] [facility] ([facility]) Body height 66 [in_i] 66 [in_i] [facility] ([facility]) Body weight 2055 [oz_av] 2056 [oz_av] [facility] ([facility]) Body height 66 [in_i] 66 [in_i] [facility] ([facility]) Body weight 2055 [oz_av] 2056 [oz_av] [facility] ([facility]) Body weight 2055 [oz_av] 2056 [oz_av] [facility] ([facility]) Body height 66 [in_i] 66 [in_i] [facility] ([facility]) Body weight 2055 [oz_av] 2056 [oz_av] [facility] ([facility]) Body height 66 [in_i] 66 [in_i] [facility] ([facility]) Body weight 2056 [oz_av] 2056 [oz_av] [facility] ([facility]) Body height 66 [in_i] 66 [in_i] [facility] ([facility]) Body weight 2098.08 [oz_av] 2098.08 [oz_av] ATH ELIZABETH ([facility]) Systolic blood pressure 112 mm[Hg] 112 mm[Hg] [facility] Body height 66 [in_i] 66 [in_i] [place] ([facility]) Diastolic blood pressure 85 mm[Hg] 85 mm[Hg] [facility] ([facility]) Body weight 2098.08 [oz_av] 2098.08 [oz_av] ATH ELIZABETH ([facility]) Systolic blood pressure 112 mm[Hg] 112 mm[Hg] [facility] Body height 66 [in_i] 66 [in_i] [place] ([facility]) Diastolic blood pressure 85 mm[Hg] 85 mm[Hg] [facility] ([facility]) Body weight 2098.08 [oz_av] 2098.08 [oz_av] ATH ELIZABETH ([facility]) Systolic blood pressure 112 mm[Hg] 112 mm[Hg] A [facility] ([facility]) Body height 66 [in_i] 66 [in_i] [place] ([facility]) Diastolic blood pressure 85 mm[Hg] 85 mm[Hg] [facility] ([facility]) Body weight 2098.08 [oz_av] 2098.08 [oz_av] ATH ELIZABETH ([facility]) Systolic blood pressure 112 mm[Hg] 112 mm[Hg] [facility] Body height 66 [in_i] 66 [in_i] [place] ([facility]) Diastolic blood pressure 85 mm[Hg] 85 mm[Hg] [facility] ([facility]) Body weight 2098.08 [oz_av] 2098.08 [oz_av] ATH ELIZABETH ([facility]) Systolic blood pressure 112 mm[Hg] 112 mm[Hg] [facility] Body height 66 [in_i] 66 [in_i] [place] ([facility]) Diastolic blood pressure 85 mm[Hg] 85 mm[Hg] [facility] ([facility]) Body weight 2098.08 [oz_av] 2098.08 [oz_av] ATH ELIZABETH ([facility]) Systolic blood pressure 112 mm[Hg] 112 mm[Hg] A THENA ([facility]) Body height 66 [in_i] 66 [in_i] [facility] ([facility]) Diastolic blood pressure 85 mm[Hg] 85 mm[Hg] [facility] ([facility]) Body weight 2098.08 [oz_av] 2098.08 [oz_av] ATH ELIZABETH ([facility]) Systolic blood pressure 112 mm[Hg] 112 mm[Hg] [facility] Body height 66 [in_i] 66 [in_i] [place] ([facility]) Diastolic blood pressure 85 mm[Hg] 85 mm[Hg] [facility] ([facility]) Body weight 2098.08 [oz_av] 2098.08 [oz_av] ATH ELIZABETH ([facility]) Systolic blood pressure 112 mm[Hg] 112 mm[Hg] [facility] Body height 66 [in_i] 66 [in_i] [place] ([facility]) Diastolic blood pressure 85 mm[Hg] 85 mm[Hg] [facility] ([facility]) Body weight 2098.08 [oz_av] 2098.08 [oz_av] ATH ELIZABETH ([facility]) Systolic blood pressure 112 mm[Hg] 112 mm[Hg] [facility] Body height 66 [in_i] 66 [in_i] [facility] ([facility]) Diastolic blood pressure 85 mm[Hg] 85 mm[Hg] [facility] ([facility]) Body weight 2098.08 [oz_av] 2098.08 [oz_av] ATH ELIZABETH ([facility]) Systolic blood pressure 112 mm[Hg] 112 mm[Hg] [facility] Body height 66 [in_i] 66 [in_i] [facility] ([facility]) Diastolic blood pressure 85 mm[Hg] 85 mm[Hg] [facility] ([facility]) Body weight 2098.08 [oz_av] 2098.08 [oz_av] ATH ELIZABETH ([facility]) Systolic blood pressure 112 mm[Hg] 112 mm[Hg] A THENA ([facility]) Body height 66 [in_i] 66 [in_i] [facility] ([facility]) Diastolic blood pressure 85 mm[Hg] 85 mm[Hg] [facility] ([facility]) Body weight 2112 [oz_av] 2112 [oz_av] [facility] ([facility]) Systolic blood pressure 105 mm[Hg] 105 mm[Hg] [facility] Body height 66 [in_i] 66 [in_i] [facility] ([facility]) Diastolic blood pressure 83 mm[Hg] 83 mm[Hg] [facility] ([facility]) Body weight 2112 [oz_av] 2112 [oz_av] [facility] ([facility]) Systolic blood pressure 105 mm[Hg] 105 mm[Hg] [facility] Body height 66 [in_i] 66 [in_i] [facility] ([facility]) Diastolic blood pressure 83 mm[Hg] 83 mm[Hg] [facility] ([facility]) Body weight 2112 [oz_av] 2112 [oz_av] [facility] ([facility]) Systolic blood pressure 105 mm[Hg] 105 mm[Hg] [facility] Body height 66 [in_i] 66 [in_i] [facility] ([facility]) Diastolic blood pressure 83 mm[Hg] 83 mm[Hg] [facility] ([facility]) Body weight 2112 [oz_av] 2112 [oz_av] [facility] ([facility]) Systolic blood pressure 105 mm[Hg] 105 mm[Hg] [facility] Body height 66 [in_i] 66 [in_i] [facility] ([facility]) Diastolic blood pressure 83 mm[Hg] 83 mm[Hg] [facility] ([facility]) Body weight 2112 [oz_av] 2112 [oz_av] [facility] ([facility]) Systolic blood pressure 105 mm[Hg] 105 mm[Hg] A THENA ([facility]) Body height 66 [in_i] 66 [in_i] [facility] ([facility]) Diastolic blood pressure 83 mm[Hg] 83 mm[Hg] [facility] ([facility]) Body weight 2112 [oz_av] 2112 [oz_av] [facility] ([facility]) Systolic blood pressure 105 mm[Hg] 105 mm[Hg] A THENA ([facility]) Body height 66 [in_i] 66 [in_i] [facility] ([facility]) Diastolic blood pressure 83 mm[Hg] 83 mm[Hg] [facility] ([facility]) Body weight 2112 [oz_av] 2112 [oz_av] [facility] ([facility]) Systolic blood pressure 105 mm[Hg] 105 mm[Hg] [facility] Body height 66 [in_i] 66 [in_i] [facility] ([facility]) Diastolic blood pressure 83 mm[Hg] 83 mm[Hg] [facility] ([facility]) Body weight 2112 [oz_av] 2112 [oz_av] [facility] ([facility]) Systolic blood pressure 105 mm[Hg] 105 mm[Hg] A THENA ([facility]) Body height 66 [in_i] 66 [in_i] [facility] ([facility]) Diastolic blood pressure 83 mm[Hg] 83 mm[Hg] [facility] ([facility]) Body weight 2112 [oz_av] 2112 [oz_av] [facility] [facility] Systolic blood pressure 105 mm[Hg] 105 mm[Hg] A THENA ([facility]) Body height 66 [in_i] 66 [in_i] SAVAGE ([facility]) Diastolic blood pressure 83 mm[Hg] 83 mm[Hg] SAVAGE ([facility]) Body weight 2112 [oz_av] 2112 [oz_av] SAVAGE ([facility]) Systolic blood pressure 105 mm[Hg] 105 mm[Hg] A THENA ([facility]) Body height 66 [in_i] 66 [in_i] SAVAGE ([facility]) Diastolic blood pressure 83 mm[Hg] 83 mm[Hg] SAVAGE ([facility]) Body weight 2112 [oz_av] 2112 [oz_av] SAVAGE ([facility]) Systolic blood pressure 105 mm[Hg] 105 mm[Hg] A THENA ([facility]) Body height 66 [in_i] 66 [in_i] SAVAGE ([facility]) Diastolic blood pressure 83 mm[Hg] 83 mm[Hg] SAVAGE ([facility]) Body weight 59.875 kg 59.875 kg MEDENT ([facility]) Body height 162.6 cm 162.6 cm MEDENT ([facility], ) Body mass index (BMI) [Ratio] 22.7 kg/m2 22.7 k g/m2 MEDENT ([facility]) Body surface area 1.64 m2 1.64 m2 MEDENT ([facility], ) Body weight 132.00 [lb_av] 132.00 [lb_av] MEDEN T ([facility]) Body height 64 [in_i] 64 [in_i] MEDENT ([facility]) 5'4" Respiratory rate 16 /min 16 /min MEDENT ( [facility], ) Heart rate 117 /min 117 /min MEDENT ([facility]) Diastolic blood pressure 64 mm[Hg] 64 mm[Hg] MEDENT ([facility], ) Systolic blood pressure 92 mm[Hg] 92 mm[Hg] M EDENT ([facility]) Patient Treatment Plan of Care Planned Activity Planned Date Details Description Data Source (s) Trulance 3 mg tablet SAVAGE ([facility]) Trulance 3 mg tablet SAVAGE ([facility]) Sulfamethoxazole 800 MG / Trimethoprim 160 MG Oral Tablet SAVAGE ([facility]) Sucralfate 100 MG/ML Oral Suspension SAVAGE ([facility]) quetiapine 400 MG Oral Tablet SAVAGE ([facility]) quetiapine 100 MG Oral Tablet SAVAGE ([facility]) Prazosin 1 MG Oral Capsule A THENA ([facility]) Ketorolac Tromethamine 10 MG Oral Tablet SAVAGE ([facility]) Clonazepam 1 MG Oral Tablet SAVAGE ([facility]) Chantix Starting Month Box 0.5 mg (11)-1 mg (42) tablets in dose pa ck SAVAGE ([facility]) varenicline 1 MG Oral Tablet SAVAGE ([facility]) celecoxib 200 MG Oral Capsule SAVAGE ([facility]) Trulance 3 mg tablet SAVAGE ([facility]) Sulfamethoxazole 800 MG / Trimethoprim 160 MG Oral Tablet SAVAGE ([facility]) Sucralfate 100 MG/ML Oral Suspension SAVAGE ([facility]) quetiapine 400 MG Oral Tablet SAVAGE ([facility]) quetiapine 100 MG Oral Tablet SAVAGE ([facility]) Prazosin 1 MG Oral Capsule A THENA ([facility]) Ketorolac Tromethamine 10 MG Oral Tablet SAVAGE ([facility]) Clonazepam 1 MG Oral Tablet SAVAGE ([facility]) Chantix Starting Month Box 0.5 mg (11)-1 mg (42) tablets in dose pa ck SAVAGE ([facility]) Sulfamethoxazole 800 MG / Trimethoprim 160 MG Oral Tablet SAVAGE ([facility]) Sucralfate 100 MG/ML Oral Suspension SAVAGE ([facility]) quetiapine 400 MG Oral Tablet SAVAGE ([facility]) quetiapine 100 MG Oral Tablet SAVAGE ([facility]) Prazosin 1 MG Oral Capsule A THENA ([facility]) Ketorolac Tromethamine 10 MG Oral Tablet SAVAGE ([facility]) Furosemide 40 MG Oral Tablet SAVAGE ([facility]) Clonazepam 1 MG Oral Tablet SAVAGE ([facility]) Chantix Starting Month Box 0.5 mg (11)-1 mg (42) tablets in dose pa ck SAVAGE ([facility]) varenicline 1 MG Oral Tablet SAVAGE ([facility]) celecoxib 200 MG Oral Capsule SAVAGE ([facility]) Trulance 3 mg tablet SAVAGE ([facility]) Sulfamethoxazole 800 MG / Trimethoprim 160 MG Oral Tablet SAVAGE ([facility]) Sucralfate 100 MG/ML Oral Suspension SAVAGE ([facility]) quetiapine 400 MG Oral Tablet SAVAGE ([facility]) quetiapine 100 MG Oral Tablet SAVAGE ([facility]) Prazosin 1 MG Oral Capsule A THENA ([facility]) Ketorolac Tromethamine 10 MG Oral Tablet SAVAGE ([facility]) Clonazepam 1 MG Oral Tablet SAVAGE ([facility]) Chantix Starting Month Box 0.5 mg (11)-1 mg (42) tablets in dose pa ck SAVAGE ([facility]) varenicline 1 MG Oral Tablet SAVAGE ([facility]) celecoxib 200 MG Oral Capsule SAVAGE ([facility]) varenicline 1 MG Oral Tablet SAVAGE ([facility]) celecoxib 200 MG Oral Capsule SAVAGE ([facility]) Trulance 3 mg tablet SAVAGE ([facility]) Sulfamethoxazole 800 MG / Trimethoprim 160 MG Oral Tablet SAVAGE ([facility]) Sucralfate 100 MG/ML Oral Suspension SAVAGE ([facility]) quetiapine 400 MG Oral Tablet SAVAGE ([facility]) quetiapine 100 MG Oral Tablet SAVAGE ([facility]) Prazosin 1 MG Oral Capsule A THENA ([facility]) Ketorolac Tromethamine 10 MG Oral Tablet SAVAGE ([facility]) Clonazepam 1 MG Oral Tablet SAVAGE ([facility]) celecoxib 200 MG Oral Capsule SAVAGE ([facility]) Trulance 3 mg tablet SAVAGE ([facility]) Sulfamethoxazole 800 MG / Trimethoprim 160 MG Oral Tablet SAVAGE ([facility]) Sucralfate 100 MG/ML Oral Suspension SAVAGE ([facility]) quetiapine 400 MG Oral Tablet SAVGAE ([facility]) quetiapine 100 MG Oral Tablet SAVAGE ([facility]) Prazosin 1 MG Oral Capsule A THENA ([facility]) Ketorolac Tromethamine 10 MG Oral Tablet SAVAGE ([facility]) Clonazepam 1 MG Oral Tablet SAVAGE ([facility]) celecoxib 200 MG Oral Capsule SAVAGE ([facility]) Trulance 3 mg tablet SAVAGE ([facility]) Sulfamethoxazole 800 MG / Trimethoprim 160 MG Oral Tablet SAVAGE ([facility]) Sucralfate 100 MG/ML Oral Suspension SAVAGE ([facility]) quetiapine 400 MG Oral Tablet SAVAGE ([facility]) quetiapine 100 MG Oral Tablet SAVAGE ([facility]) Prazosin 1 MG Oral Capsule A THENA ([facility]) Ketorolac Tromethamine 10 MG Oral Tablet SAVAGE ([facility]) Clonazepam 1 MG Oral Tablet SAVAGE ([facility]) celecoxib 200 MG Oral Capsule SAVAGE ([facility])
[2020-11-12 20:18] LABS: ALBUMIN 3.7 GM/DL (3.2-5.2); ALT/SGPT 38 U/L (12-78); BILIRUBIN,DIRECT < 0.1 MG/DL (0.0-0.2); BILIRUBIN,TOTAL 0.3 MG/DL (0.2-1.0); BLOOD UREA NITROGEN 22 MG/DL (7-18); CALCIUM LEVEL 8.9 MG/DL (8.5-10.1); CARBON DIOXIDE LEVEL 22 MEQ/L (21-32); CHLORIDE LEVEL 111 MEQ/L (98-107); CK-MB VALUE MASS 1.1 NG/ML (<3.6); CPK CREATINE PHOSPHOKINASE 190 U/L (26-192); CREATININE FOR GFR 0.83 MG/DL (0.55-1.30); FREE T4 0.78 NG/DL (0.76-1.46); GLOMERULAR FILTRATION RATE > 60.0 (>51); GLUCOSE, FASTING 79 MG/DL (70-100); MB/CK RELATIVE INDEX 0.58 (< OR =4); POTASSIUM SERUM 5.5 MEQ/L (3.5-5.1); SODIUM LEVEL 141 MEQ/L (136-145); TOTAL PROTEIN 7.9 GM/DL (6.4-8.2); TROPONIN I < 0.02 NG/ML (< 0.10)
[2020-11-12] MEDS ORDERED: ISOVUE-370 76% 100ML VIAL As Ordered ONE (20:31)
--- NOTE | 2020-11-12 21:39 | REPVR ---
PROCEDURE INFORMATION: Exam: CT Angiography Chest With Contrast Exam date and time: 11/12/2020 8:45 PM Age: 50 years old Clinical indication: Right sided chest pain TECHNIQUE: Imaging protocol: Computed tomographic angiography of the chest with contrast. 3D rendering (Not supervised by radiologist): MIP and/or 3D reconstructed images were created by the technologist. Radiation optimization: All CT scans at this facility use at least one of these dose optimization techniques: automated exposure control; mA and/or kV adjustment per patient size (includes targeted exams where dose is matched to clinical indication); or iterative reconstruction. Contrast material: ISOVUE 370; Contrast volume: 75 ml; Contrast route: INTRAVENOUS (IV); COMPARISON: 1. CT Chest with contrast 08/24/2020 5:[address] guide needle placement 08/02/2020 9:06:53 AM FINDINGS: Pulmonary arteries: No pulmonary embolism. Aorta: The thoracic aorta is intact and patent. There is no thoracic aortic aneurysm, pseudoaneurysm, penetrating atherosclerotic ulcer, intramural hematoma, or dissection. Trachea: Normal. Bronchial tree: Normal. Lungs: There has been a partial resection of the right lower lobe containing the previously noted 12 mm pulmonary nodule seen in the prior CT chest on 08/24/2020. No mass, consolidation, or ground-glass opacification is noted. There is mild atelectasis, predominantly in the dependent portions of both lower lobes. Pleural spaces: There is a trace right pleural effusion. No pneumothorax. Heart: No cardiomegaly or pericardial effusion. The ratio of the diameter of the right ventricle to the diameter of the left ventricle measures less than 1, which is within normal limits and there is no CT evidence for a right ventricular strain. There are coronary artery calcifications. Mediastinal space: No mediastinal mass, fluid collection, or pneumomediastinum. Lymph nodes: No enlarged lymph nodes. Gallbladder and bile ducts: There has been a cholecystectomy. The bile ducts were not fully imaged. Spleen: Unremarkable. No splenomegaly is noted. Adrenal glands: There is a 3.2 cm left adrenal nodule that measures -5 Hounsfield units, which is compatible with a benign left adrenal adenoma that is unchanged compared to the prior CT chest on 08/24/2020 and for which further follow-up is not necessary. The adrenal glands were not fully imaged. Bones/joints: There are healing mildly displaced fractures of the right lateral 6th and 7th ribs with callus formation, which are new compared to the prior CT chest on 08/24/2020. There are degenerative changes in the thoracic spine. Soft tissues: Unremarkable. No soft tissue fluid collection. IMPRESSION: 1. No pulmonary embolism. 2. Healing mildly displaced fractures of the right lateral 6th and 7th ribs, which are new compared to the prior CT chest on 08/24/2020. No pneumothorax. 3. Trace right pleural effusion. 4. Status post partial resection of the right lower lobe containing the previously noted 12 mm pulmonary nodule seen in the CT chest on 08/24/2020. No new pulmonary nodule or mass. Electronically signed by: Vega Ramos On 11/12/2020 21:38:50 PM
[2020-11-12] MEDS ORDERED: NEUR300C PO (21:49)
[2020-11-12 21:52] VITALS: BP 122/62
--- NOTE | 2020-11-13 07:19 | ED PDOC ---
Post-Departure Follow-Up radiology report faxed to Dr. Mcdonough, Mariana Ghosh MD Nov 13, 2020 07:19
--- NOTE | 2020-11-13 09:31 | ECGEPIP ---
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
== END 2020-11-12 22:18 | disposition home or self-care (01) ==
LOC: M ED 18:52
DX: R07.9 Chest pain, unspecified (principal); R06.09 Other forms of dyspnea; J44.9 Chronic obstructive pulmonary disease, unspecified; E07.9 Disorder of thyroid, unspecified; F31.9 Bipolar disorder, unspecified; Z85.118 Personal history of other malignant neoplasm of bronchus and lung; Z79.899 Other long term (current) drug therapy; Z79.891 Long term (current) use of opiate analgesic; Z88.0 Allergy status to penicillin; Z88.1 Allergy status to other antibiotic agents; Z88.8 Allergy status to other drugs, medicaments and biological substances
CPT/HCPCS: 71045; 71275; 80048; 80076; 82550; 82553; 84439; 84443; 84484; 85025; 85610; 85730; 93005; 93041; 94760; 96374; 99285; J2270; Q9967

== ENCOUNTER → 2020-12-30 | Outpatient (CLI) | payer OTHER ==
[~2020-12-30] MED LIST changes: -AMIT10TA PO; +AMIT10TA7 PO; +NEUR300C PO
[2020-12-30 12:37] LABS: HEMATOCRIT 42.9 % (36.0-47.0); MEAN CORPUSCULAR HEMOGLOBIN 31.5 pg (27.0-33.0); MEAN CORPUSCULAR HGB CONC 32.6 g/dl (32.0-36.5); MEAN CORPUSCULAR VOLUME 96.6 fl (80.0-96.0); PLATELET COUNT, AUTOMATED 251 10^3/uL (150-450); RED BLOOD COUNT 4.44 10^6/uL (4.00-5.40); WHITE BLOOD COUNT 5.3 10^3/uL (4.0-10.0)
== END ==
LOC: M LAB 11:38
PROVIDERS: ATTEND Physician Assistant Medical
DX: K62.5 Hemorrhage of anus and rectum (principal)

== ENCOUNTER → 2021-01-03 | Outpatient (CLI) | payer OTHER ==
--- NOTE | 2021-01-03 14:13 | REP ---
INDICATION: UNSPECIFIED INJURY OF THORAX, INITIAL ENCOUNTER. COMPARISON: PA and lateral chest dated 10/25/[address] dated 11/12/2020. TECHNIQUE: Right ribs three views, PA chest single-view. FINDINGS: Patient reportedly has had a right lower lobectomy. Right ribs three views: On 10/25/2020 there were fractures of the right 5th and 6th ribs laterally. These fractures have healed and there are now rib deformities laterally of these ribs. No new or acute rib fractures are identified. There is effacement of the right costophrenic angle and linear stranding inferiorly in the right lung, similar to 10/25/2020, possibly postsurgical scarring and pleural adhesion. PA chest: Postsurgical changes inferiorly in the right hemithorax are again identified. There is no pneumothorax, hemothorax or pulmonary contusion. Right lung is otherwise clear. Left lung is clear. Cardiac size normal. [place], mediastinum, and skeletal structures otherwise are unremarkable. IMPRESSION: Postsurgical changes in the right hemithorax as described. There are no new or acute rib fractures. <Electronically signed by Glenn Maddox > 01/03/21 [id number]
--- NOTE | 2021-01-03 14:19 | REP ---
INDICATION: UNSPECIFIED INJURY OF THORAX, INITIAL ENCOUNTER. COMPARISON: PA and lateral chest dated 10/15/2020. TECHNIQUE: There are three views. FINDINGS: Vertebral body heights and alignment are unremarkable. The pedicles are unremarkable. There is no compression deformity or listhesis. There is moderate degenerative disc disease throughout the thoracic spine, unchanged. IMPRESSION: No fracture or listhesis. Moderate multilevel degenerative disc disease throughout the thoracic spine, unchanged. <Electronically signed by Glenn Maddox > 01/03/21 [id number]
== END ==
LOC: M RAD 11:14
PROVIDERS: ATTEND Family Medicine Addiction Medicine
DX: S29.9XXA Unspecified injury of thorax, initial encounter (principal); X58.XXXA Exposure to other specified factors, initial encounter; Y92.89 Other specified places as the place of occurrence of the external cause

== ENCOUNTER → 2021-02-13 | Outpatient (CLI) | payer OTHER ==
[~2021-02-13] MED LIST changes: +AMIT25TA17
== END ==
LOC: M LABSMTC 09:23
PROVIDERS: ATTEND Anesthesiology
DX: Z01.812 Encounter for preprocedural laboratory examination (principal); Z11.52 Encounter for screening for COVID-19

== ENCOUNTER 2021-02-18 09:36 | Day surgery (SDC) | payer OTHER ==
[~2021-02-18] VITALS: Ht 160 cm; Wt 76.2 kg
[~2021-02-18 09:36] MED LIST changes: +NS 1,000 ML IV ONE
[2021-02-18] MEDS ORDERED: LIDOCAINE 2% 100MG/5ML SDV (FOR ANES.) As Ordered ONE (12:14)
[2021-02-18] MEDS ORDERED: fentaNYL 100 MCG/2 ML INJECTION (J3010) As Ordered ONE (12:14)
[2021-02-18] MEDS ORDERED: propofoL 500 MG/50 ML VIAL As Ordered ONE (12:14)
[2021-02-18] MEDS ORDERED: ePHEDrine SULFATE 25 MG/5 ML(5MG/ML) SYRINGE As Ordered ONE (12:38)
--- NOTE | 2021-02-18 12:39 | ROOR ---
Patient Name: Sara Chavarria Procedure Date: 02/18/2021 12:14 PM Date of : 1970 Age: 50 Room: [facility] Gender: Female Note Status: Finalized Procedure: Upper GI endoscopy Indications: Oropharyngeal phase dysphagia Providers: Chente ARGUELLO MD Referring MD: Pa TORRES MD Requesting Provider: Medicines: Monitored Anesthesia Care Complications: No immediate complications. Procedure: Pre-Anesthesia Assessment: - The heart rate, respiratory rate, oxygen saturations, blood pressure, adequacy of pulmonary ventilation, and response to care were monitored throughout the procedure. The Endoscope was introduced through the mouth, and advanced to the second part of duodenum. The upper GI endoscopy was accomplished without difficulty. The patient tolerated the procedure well. Findings: The Z-line was variable and was found 38 cm from the incisors. Circumferential salmon-colored mucosa was present at 38 cm. Nodularity was present at 38 cm. Biopsies were taken with a cold forceps for histology. Evidence of a fundoplication was found in the cardia. The wrap appeared loose. The entire examined stomach was normal. The examined duodenum was normal. No endoscopic abnormality was evident in the esophagus to explain the patient's complaint of dysphagia. It was decided, however, to proceed with dilation of the entire esophagus. The scope was withdrawn. Dilation was performed with a Mackey dilator with no resistance at 56 Fr. The dilation site was examined and showed no change. This was biopsied with a cold forceps for evaluation of eosinophilic esophagitis. Impression: - Z-line variable, 38 cm from the incisors with mildly nodular salmon colored mucosa. Biopsied to r/o short segment barretts esophagus. - A fundoplication was found in the cardia. - Otherwise normal stomach. - Normal examined duodenum. - No endoscopic esophageal abnormality to explain patient's dysphagia. Esophagus dilated. Dilated. Biopsied. Recommendation: - Observe patient's clinical course. - Telephone endoscopist for pathology results in 2 weeks. Procedure Code(s): --- Professional --- 35678, Esophagogastroduodenoscopy, flexible, transoral; with biopsy, single or multiple 83415, Dilation of esophagus, by unguided sound or bougie, single or multiple passes Diagnosis Code(s): --- Professional --- K22.8, Other specified diseases of esophagus Z98.890, Other specified postprocedural states R13.12, Dysphagia, oropharyngeal phase CPT copyright 2019 [employer]. All rights reserved. The codes documented in this report are preliminary and upon data coder operator review may be revised to meet current compliance requirements. Chente Arguello MD Chente ARGUELLO MD 02/18/2021 12:38:43 PM Electronically signed by Chente ARGUELLO MD Number of Addenda: 0 Note Initiated On: 02/18/2021 12:14 PM Estimated Blood Loss: Estimated blood loss: none.
[2021-02-18] MEDS ORDERED: propofoL 200 MG/20 ML VIAL As Ordered ONE (12:41)
--- NOTE | 2021-02-18 12:54 | ROOR ---
Patient Name: Sara Chavarria Procedure Date: 02/18/2021 12:14 PM Date of : 1970 Age: 50 Room: [facility] Gender: Female Note Status: Finalized Procedure: Colonoscopy Indications: Rectal bleeding Providers: Chente ARGUELLO MD Referring MD: Pa TORRES MD Requesting Provider: Medicines: Monitored Anesthesia Care Complications: No immediate complications. Procedure: Pre-Anesthesia Assessment: - The heart rate, respiratory rate, oxygen saturations, blood pressure, adequacy of pulmonary ventilation, and response to care were monitored throughout the procedure. The Colonoscope was introduced through the anus and advanced to 10 cm into the ileum. The colonoscopy was performed without difficulty. The patient tolerated the procedure well. The quality of the bowel preparation was fair. Findings: The perianal and digital rectal examinations were normal. Mild sigmoid diverticulosis and small internal hemorrhoids. The entire examined colon appeared normal on direct and retroflexion views. The terminal ileum appeared normal. Impression: - Preparation of the colon was fair. - Mild sigmoid diverticulosis and small internal hemorrhoids. - The entire examined colon is normal on direct and retroflexion views. - The examined portion of the ileum was normal. - No specimens collected. Recommendation: - Use fiber, for example Citrucel, Fibercon, Konsyl or Metamucil. Procedure Code(s): --- Professional --- 48133, Colonoscopy, flexible; diagnostic, including collection of specimen(s) by brushing or washing, when performed (separate procedure) Diagnosis Code(s): --- Professional --- K62.5, Hemorrhage of anus and rectum CPT copyright 2019 [employer]. All rights reserved. The codes documented in this report are preliminary and upon duco polisher review may be revised to meet current compliance requirements. Chente Arguello MD Chente ARGUELLO MD 02/18/2021 12:53:52 PM Electronically signed by Chente ARGUELLO MD Number of Addenda: 0 Note Initiated On: 02/18/2021 12:14 PM Estimated Blood Loss: Estimated blood loss: none.
[2021-02-18 13:20] VITALS: BP 123/70
== END 2021-02-18 13:20 | disposition home or self-care (01) ==
LOC: M OPP 09:36
PROVIDERS: ATTEND Internal Medicine Gastroenterology
DX: K57.30 Diverticulosis of large intestine without perforation or abscess without bleeding (principal); K64.8 Other hemorrhoids; K62.5 Hemorrhage of anus and rectum; K22.8 Other specified diseases of esophagus; Z98.890 Other specified postprocedural states; R13.12 Dysphagia, oropharyngeal phase; Z86.69 Personal history of other diseases of the nervous system and sense organs; Z85.118 Personal history of other malignant neoplasm of bronchus and lung; Z79.899 Other long term (current) drug therapy; Z88.0 Allergy status to penicillin; Z88.8 Allergy status to other drugs, medicaments and biological substances; Z87.891 Personal history of nicotine dependence
CPT/HCPCS: 43239; 43450; 45378; 88305; J3010

== ENCOUNTER → 2021-03-22 | Outpatient (CLI) | payer OTHER ==
[~2021-03-22] MED LIST changes: +E-Z-GAS II EFFERVESCENT PACKET (SODIUM BICARB./CITRIC ACID/SIMETHICONE) As Ordered ONE; +E-Z-HD 98% w/w 340GM SUSP BTL As Ordered ONE; +E-Z-PAQUE 96% w/w SUSP 176GM BTL As Ordered ONE; -NS 1,000 ML IV ONE
--- NOTE | 2021-03-22 20:14 | REP ---
INDICATION: GERD. COMPARISON: Esophagram dated 05/05/2016 TECHNIQUE: This procedure was performed by Radha Lee [facility], under the direct supervision of Dr. Nevarez. Images were reviewed with Dr. Nevarez prior to dictation. Liquid barium and gas producing crystals were given in the erect position, as well as liquid barium in the prone oblique position in order to perform a double contrast upper GI examination. FINDINGS: The realtime reporter film shows no organomegaly or pathological masses. The intestinal gas pattern is unremarkable. The patient is status post Linh fundoplasty in 2002. The oral and pharyngeal stages of deglutition were unremarkable. Esophageal transport is prompt and efficient and there is no evidence of esophagitis, stricture, or mucosal ring. However tertiary contractions were visualized throughout the exam. There is no evidence of a hiatal hernia. There was no gastroesophageal reflux noted . The stomach hinojosa are normally outlined. The rugal folds are smooth and regular. There is no gastritis, neoplasm, or ulcerative disease. The duodenal hinojosa are normally outlined. The mucosal folds are smooth and regular. There is no duodenitis, peptic ulcer disease or neoplasm. The visualized portion of the proximal small bowel appears normal in course and caliber. There is a moderate-sized diverticulum of the descending duodenum. IMPRESSION: 1. Tertiary contractions were visualized throughout the exam. 2. Moderate-sized diverticulum of the descending duodenum. 0.6 minutes of fluoroscopy time was utilized for this procedure. Some fluoroscopic images are performed with last image hold technology. These images require no additional radiation. <Electronically signed by Radha Lee > 03/22/21 1746 <Electronically signed by Glenn Nevarez > 03/22/212010
== END ==
LOC: M RAD 07:40
PROVIDERS: ATTEND Surgery
DX: K57.10 Diverticulosis of small intestine without perforation or abscess without bleeding (principal); K21.9 Gastro-esophageal reflux disease without esophagitis

== ENCOUNTER 2021-04-26 20:58 | Emergency (ER) | payer OTHER ==
[~2021-04-26] VITALS: Ht 160 cm; Wt 77.3 kg
[~2021-04-26 20:58] MED LIST changes: -E-Z-GAS II EFFERVESCENT PACKET (SODIUM BICARB./CITRIC ACID/SIMETHICONE) As Ordered ONE; -E-Z-HD 98% w/w 340GM SUSP BTL As Ordered ONE; -E-Z-PAQUE 96% w/w SUSP 176GM BTL As Ordered ONE; +ERGO500029 PO
[2021-04-26] MEDS ORDERED: ALPR0.25 PO (21:07)
[2021-04-26 22:53] LABS: HEMATOCRIT 38.2 % (36.0-47.0); HEMOGLOBIN 12.5 g/dl (12.0-15.5); MEAN CORPUSCULAR HEMOGLOBIN 31.2 pg (27.0-33.0); MEAN CORPUSCULAR HGB CONC 32.7 g/dl (32.0-36.5); MEAN CORPUSCULAR VOLUME 95.3 fl (80.0-96.0); PLATELET COUNT, AUTOMATED 275 10^3/uL (150-450); RED BLOOD COUNT 4.01 10^6/uL (4.00-5.40); WHITE BLOOD COUNT 5.5 10^3/uL (4.0-10.0)
[2021-04-26] MEDS ORDERED: ALPRAZolam 0.5 MG TAB PO ONE (23:05)
[2021-04-26 23:20] LABS: AMPHETAMINES LEVEL URINE NEGATIVE (NEGATIVE); BARBITURATES URINE NEGATIVE (NEGATIVE); BENZODIAZEPINES URINE POSITIVE (NEGATIVE); CANNABINOIDS URINE POSITIVE (NEGATIVE); COCAINE METABOLITE URINE NEGATIVE (NEGATIVE); METHADONE URINE NEGATIVE (NEGATIVE); OPIATES URINE NEGATIVE (NEGATIVE); PHENCYCLIDINE URINE NEGATIVE (NEGATIVE)
[2021-04-26 23:26] LABS: ACETAMINOPHEN LEVEL < 2.0 UG/ML (10.0-30.0); ALBUMIN 3.4 GM/DL (3.2-5.2); ALT/SGPT 21 U/L (12-78); BILIRUBIN,DIRECT < 0.1 MG/DL (0.0-0.2); BILIRUBIN,TOTAL 0.2 MG/DL (0.2-1.0); BLOOD UREA NITROGEN 13 MG/DL (7-18); CARBON DIOXIDE LEVEL 21 MEQ/L (21-32); CHLORIDE LEVEL 112 MEQ/L (98-107); ETHYL ALCOHOL (ETHANOL) < 0.003 % (0.000-0.010); GLOMERULAR FILTRATION RATE > 60.0 (>51); GLUCOSE, FASTING 78 MG/DL (70-100); POTASSIUM SERUM 3.7 MEQ/L (3.5-5.1); SALICYLATE LEVEL 2.1 MG/DL (5.0-30.0); SODIUM LEVEL 143 MEQ/L (136-145); TOTAL PROTEIN 6.9 GM/DL (6.4-8.2)
[2021-04-27 00:44] VITALS: BP 121/77
== END 2021-04-27 00:44 | disposition home or self-care (01) ==
LOC: M ED 20:58
DX: F33.9 Major depressive disorder, recurrent, unspecified (principal); I10 Essential (primary) hypertension; E78.5 Hyperlipidemia, unspecified; G40.909 Epilepsy, unspecified, not intractable, without status epilepticus; K21.9 Gastro-esophageal reflux disease without esophagitis; Z85.118 Personal history of other malignant neoplasm of bronchus and lung; Z88.0 Allergy status to penicillin; Z88.1 Allergy status to other antibiotic agents; Z88.8 Allergy status to other drugs, medicaments and biological substances; Z87.891 Personal history of nicotine dependence

== ENCOUNTER → 2021-04-28 | Outpatient (CLI) | payer OTHER ==
[~2021-04-28] MED LIST changes: +ALPR0.25 PO
--- NOTE | 2021-04-28 10:52 | PFTRPT ---
Height: 63.00 Inches Weight: 171.00 Lbs BSA: 1.81 Diagnosis: J45.40 DATE: 04/28/2021 ORDERING PHYSICIAN: Joseph Choe MD Pre and post bronchodilator studies have excellent technical quality. Forced vital capacity is normal. FEV1 is in proportion. Obstructive index is therefore normal. Expiratory limit of the flow-volume loop is normal. No significant bronchodilator response is identified. Total lung capacity is normal. Residual volume is generally in proportion. Diffusing capacity although minimally reduced is appropriate for alveolar volume. Hemoglobin is acceptable at 15.4. Airway resistance and conductance are normal. IMPRESSION: Mild reduction in the absolute diffusing capacity, otherwise normal study. MTDD
== END ==
LOC: M CARPUL 10:07
PROVIDERS: ATTEND Internal Medicine Pulmonary Disease
DX: J45.40 Moderate persistent asthma, uncomplicated (principal)

== ENCOUNTER → 2021-05-02 | Outpatient (CLI) | payer OTHER ==
--- NOTE | 2021-05-02 08:33 | REP ---
INDICATION: H/O MALIGANT JOANA OF LUNG. COMPARISON: CTA 11/12/2020 TECHNIQUE: Standard noncontrast axial images with coronal and sagittal reconstructions. Bone windows were reviewed. FINDINGS: There is some volume loss in the right hemithorax compared to the left with changes of a right lower lobectomy. There are healing right lateral 5th and 6 rib fractures postsurgery. Tenting of the diaphragm laterally on the right side. Some linear scarring in the right base noted. There is no pleural effusion, small amount of the subpleural fat posteriorly in the right midlung zone. No pulmonary nodule or parenchymal mass in the right lung. The left lung is clear. There are no pleural effusions. Heart size not grossly enlarged. Coronary artery calcifications are seen. There is no pericardial thickening or effusion. The aorta is without aneurysm. Small amount of fluid in the superior pericardial recess. Subcentimeter precarinal, right paratracheal, prevascular, AP window and hilar nodes noted. No pathologic sized adenopathy. No axillary or supraclavicular adenopathy. Bone windows show the sternum, manubrium, clavicles, visualized scapulae, humeral heads and ribs without acute finding. No compression deformity in the spine. No destructive lesion. The left adrenal gland shows the stable appearance with enlargement 3.1 by 1.9 cm. Has low attenuation consistent with fat. The right adrenal gland was normal. Visualized portion of liver is intact. There are prior cholecystectomy changes. Spleen not enlarged and without focal lesion. There are surgical clips at the GE junction. Visualized portion of pancreas unremarkable. IMPRESSION: 1. Status post right lower lobectomy with some postoperative changes but no evidence of pleural effusion, new mass, pulmonary nodule, nor other acute finding. Left lung clear. 2. No mediastinal or hilar pathologic sized adenopathy. Bony structures without acute finding 3. Stable appearance of the left adrenal adenoma with low attenuation consistent with a benign fatty change. Right adrenal gland normal. <Electronically signed by Asim Leach > 05/02/21 2402
== END ==
LOC: M RAD 07:17
PROVIDERS: ATTEND Internal Medicine Pulmonary Disease
DX: Z85.118 Personal history of other malignant neoplasm of bronchus and lung (principal); Z90.2 Acquired absence of lung [part of]; E27.9 Disorder of adrenal gland, unspecified

== ENCOUNTER 2021-05-08 11:52 | Emergency (ER) | payer OTHER ==
[~2021-05-08] VITALS: Ht 160 cm; Wt 77.2 kg
[2021-05-08 11:55] VITALS: BP 138/88
== END 2021-05-08 14:15 | disposition left against medical advice (07) ==
LOC: M ED 11:52
DX: Z53.21 Procedure and treatment not carried out due to patient leaving prior to being seen by health care provider (principal)

== ENCOUNTER → 2021-05-25 | Outpatient (CLI) | payer OTHER ==
[~2021-05-25] MED LIST changes: -QUET400T PO; +QUET400T2 PO
== END ==
LOC: M LABSMTC 14:07
PROVIDERS: ATTEND Internal Medicine Gastroenterology
DX: Z01.818 Encounter for other preprocedural examination (principal)

== ENCOUNTER → 2021-06-04 | Outpatient (CLI) | payer OTHER | LOC: M LABSMTC 10:20 | PROVIDERS: ATTEND Internal Medicine Gastroenterology | DX: Z01.812 Encounter for preprocedural laboratory examination (principal); Z20.822 Contact with and (suspected) exposure to COVID-19 ==

== ENCOUNTER 2021-12-23 11:14 | Emergency (ER) | payer MEDICARE ==
[~2021-12-23] VITALS: Ht 160 cm; Wt 85.5 kg
[~2021-12-23 11:14] MED LIST changes: -D31000TA2 PO; +SUMA6CAR SC; -SUMA6KIT SC; +VITA100093 PO
[2021-12-23 12:52] LABS: BASO # 0.1 10^3/uL (0.0-0.2); EOS # 0.1 10^3/uL (0.0-0.5); EOS % 0.9 % (0.0-3.0); HEMATOCRIT 38.8 % (36.0-47.0); HEMOGLOBIN 12.7 g/dl (12.0-15.5); LYMPH # 2.6 10^3/uL (1.5-5.0); LYMPH % 32.5 % (24.0-44.0); MEAN CORPUSCULAR HEMOGLOBIN 31.2 pg (27.0-33.0); MEAN CORPUSCULAR HGB CONC 32.7 g/dl (32.0-36.5); MEAN CORPUSCULAR VOLUME 95.3 fl (80.0-96.0); MONO # 0.6 10^3/uL (0.0-0.8); MONO % 7.3 % (2.0-8.0); NEUTROPHILS # 4.5 10^3/uL (1.5-8.5); NEUTROPHILS % 57.7 % (36.0-66.0); PLATELET COUNT, AUTOMATED 256 10^3/uL (150-450); RED BLOOD COUNT 4.07 10^6/uL (4.00-5.40); WHITE BLOOD COUNT 7.8 10^3/uL (4.0-10.0)
[2021-12-23 13:28] LABS: CK-MB VALUE MASS < 1.0 NG/ML (<3.6); CPK CREATINE PHOSPHOKINASE 132 U/L (26-192); MB/CK RELATIVE INDEX 0.76 (< OR =4)
[2021-12-23 13:34] LABS: ALBUMIN 3.5 GM/DL (3.2-5.2); ALT/SGPT 26 U/L (12-78); BILIRUBIN,DIRECT < 0.1 MG/DL (0.0-0.2); BILIRUBIN,TOTAL 0.2 MG/DL (0.2-1.0); BLOOD UREA NITROGEN 11 MG/DL (7-18); CALCIUM LEVEL 8.6 MG/DL (8.5-10.1); CARBON DIOXIDE LEVEL 24 MEQ/L (21-32); CHLORIDE LEVEL 109 MEQ/L (98-107); GLOMERULAR FILTRATION RATE > 60.0 (>51); GLUCOSE, FASTING 98 MG/DL (70-100); LIPASE 99 U/L (73-393); NT-PRO BNP 42 PG/ML (<125); POTASSIUM SERUM 4.2 MEQ/L (3.5-5.1); SODIUM LEVEL 138 MEQ/L (136-145); TOTAL PROTEIN 7.1 GM/DL (6.4-8.2)
[2021-12-23] MEDS ORDERED: ISOVUE-370 76% 100ML VIAL As Ordered ONE (13:44)
[2021-12-23 14:13] LABS: CK-MB VALUE MASS < 1.0 NG/ML (<3.6); CPK CREATINE PHOSPHOKINASE 111 U/L (26-192)
[2021-12-23] MEDS ORDERED: PRED10TA2 PO (14:51)
[2021-12-23 15:00] VITALS: BP 132/67
== END 2021-12-23 15:05 | disposition home or self-care (01) ==
LOC: M ED 11:14
DX: J20.9 Acute bronchitis, unspecified (principal); E11.9 Type 2 diabetes mellitus without complications; J45.909 Unspecified asthma, uncomplicated; F31.9 Bipolar disorder, unspecified; E78.5 Hyperlipidemia, unspecified; Z85.118 Personal history of other malignant neoplasm of bronchus and lung; Z79.899 Other long term (current) drug therapy; Z88.0 Allergy status to penicillin; Z88.1 Allergy status to other antibiotic agents; Z88.8 Allergy status to other drugs, medicaments and biological substances; Z87.891 Personal history of nicotine dependence
CPT/HCPCS: 36415; 71045; 71275; 80048; 80076; 82550; 82553; 83690; 83880; 84443; 84484; 85025; 93005; 93041; 94760; 99285; Q9967

== ENCOUNTER → 2022-06-30 | Outpatient (CLI) | payer MEDICARE ==
[~2022-06-30] MED LIST changes: +PRED10TA2 PO; -ZONI100C17 PO; +ZONI100C67 PO
== END ==
LOC: M RAD 12:46
PROVIDERS: ATTEND Internal Medicine Pulmonary Disease
DX: R91.8 Other nonspecific abnormal finding of lung field (principal)

== ENCOUNTER → 2022-08-11 | Outpatient (REF) | payer MEDICARE, MEDICAID ==
[2022-08-11 15:28] LABS: ALBUMIN 3.5 GM/DL (3.2-5.2); ALT/SGPT 32 U/L (12-78); BILIRUBIN,TOTAL 0.3 MG/DL (0.2-1.0); BLOOD UREA NITROGEN 16 MG/DL (7-18); CALCIUM LEVEL 9.5 MG/DL (8.5-10.1); CARBON DIOXIDE LEVEL 23 MEQ/L (21-32); CHLORIDE LEVEL 109 MEQ/L (98-107); CHOLESTEROL LEVEL 213 MG/DL (<200); CHOLESTEROL RISK RATIO 1.868 (<5); GLOMERULAR FILTRATION RATE > 60.0 (>51); GLUCOSE, FASTING 81 MG/DL (70-100); HDL CHOLESTEROL 114 MG/DL (>40); LDL CHOLESTEROL 69 MG/DL (<100); NON-HDL-C 99 MG/DL; POTASSIUM SERUM 4.8 MEQ/L (3.5-5.1); SODIUM LEVEL 140 MEQ/L (136-145); TOTAL PROTEIN 7.6 GM/DL (6.4-8.2); TRIGLYCERIDES LEVEL 149 MG/DL (<150)
== END ==
LOC: M LAB REF 12:59
PROVIDERS: ATTEND Family Medicine Addiction Medicine
DX: E03.9 Hypothyroidism, unspecified (principal)

== ENCOUNTER 2022-09-21 11:56 | Emergency (ER) | payer MEDICARE, MEDICAID ==
[~2022-09-21] VITALS: Ht 160 cm; Wt 89.1 kg
[2022-09-21 11:58] VITALS: BP 141/84
== END 2022-09-21 15:33 | disposition left against medical advice (07) ==
LOC: M ED 11:56
DX: Z53.21 Procedure and treatment not carried out due to patient leaving prior to being seen by health care provider (principal)

== ENCOUNTER → 2022-10-02 | Outpatient (REF) | payer MEDICARE | LOC: M SFHCWAGY 16:59 | PROVIDERS: ATTEND Obstetrics & Gynecology | DX: Z12.4 Encounter for screening for malignant neoplasm of cervix (principal) | CPT/HCPCS: 87624; G0123 ==

== ENCOUNTER → 2022-10-02 | Outpatient (CLI) | payer MEDICARE | LOC: M WHC 07:16 | PROVIDERS: ATTEND Obstetrics & Gynecology | DX: Z12.31 Encounter for screening mammogram for malignant neoplasm of breast (principal) ==

== ENCOUNTER → 2023-01-10 | Outpatient (REF) | payer MEDICARE, MEDICAID ==
[2023-01-10 17:41] LABS: THYROID STIMULATING HORMONE 7.485 uIU/ML (0.55-4.78); TOTAL 25(OH) VITAMIN D 18.6 NG/ML (20.0-100.0)
[2023-01-10 17:42] LABS: ALBUMIN 3.7 G/DL (3.2-5.2); ALKALINE PHOSPHATASE 116 U/L (46-116); ALT/SGPT 22 U/L (7.0-40); AST/SGOT 17 U/L (<34); BILIRUBIN,TOTAL 0.3 MG/DL (0.3-1.2); BLOOD UREA NITROGEN 14 MG/DL (9-23); CALCIUM LEVEL 9.5 MG/DL (8.5-10.1); CARBON DIOXIDE LEVEL 24 MMOL/L (20-31); CHLORIDE LEVEL 109 MMOL/L (98-107); CHOLESTEROL LEVEL 197 MG/DL (<200); CHOLESTEROL RISK RATIO 2.16 (<5); CREATININE FOR GFR 0.69 MG/DL (0.55-1.30); GLOMERULAR FILTRATION RATE > 60.0 (>51); GLUCOSE, FASTING 82 MG/DL (60-100); HDL CHOLESTEROL 90.8 MG/DL (>40); LDL CHOLESTEROL 78.8 MG/DL (<100); NON-HDL-C 106.2 MG/DL; SODIUM LEVEL 140 MMOL/L (136-145); TOTAL PROTEIN 7.2 G/DL (5.7-8.2); TRIGLYCERIDES LEVEL 137 MG/DL (<150)
== END ==
LOC: M LAB REF 16:44
PROVIDERS: ATTEND Family Medicine Addiction Medicine
DX: E78.5 Hyperlipidemia, unspecified (principal); E55.9 Vitamin D deficiency, unspecified

== ENCOUNTER → 2023-01-22 | Outpatient (CLI) | payer MEDICARE | LOC: M PLAIMG 07:57 | PROVIDERS: ATTEND Internal Medicine Pulmonary Disease | DX: Z85.118 Personal history of other malignant neoplasm of bronchus and lung (principal); Z90.49 Acquired absence of other specified parts of digestive tract ==

== ENCOUNTER → 2023-03-01 | Outpatient (CLI) | payer MEDICARE | LOC: M RAD 07:57 | PROVIDERS: ATTEND Physician Assistant Medical | DX: R13.12 Dysphagia, oropharyngeal phase (principal); Z53.8 Procedure and treatment not carried out for other reasons ==

== ENCOUNTER → 2023-06-12 | Outpatient (REF) | payer MEDICARE ==
[~2023-06-12] MED LIST changes: -AMIT25TA17; -AMIT25TA17 PO; +AMIT25TA19; +AMIT25TA19 PO
[2023-06-12 15:10] LABS: ALBUMIN 3.5 G/DL (3.2-5.2); ALKALINE PHOSPHATASE 103 U/L (46-116); ALT/SGPT 17 U/L (7.0-40); AST/SGOT 10 U/L (<34); BILIRUBIN,TOTAL 0.2 MG/DL (0.3-1.2); BLOOD UREA NITROGEN 18 MG/DL (9-23); CALCIUM LEVEL 9.1 MG/DL (8.5-10.1); CARBON DIOXIDE LEVEL 23 MMOL/L (20-31); CHLORIDE LEVEL 108 MMOL/L (98-107); CHOLESTEROL LEVEL 210 MG/DL (<200); CHOLESTEROL RISK RATIO 2.06 (<5); CREATININE FOR GFR 0.97 MG/DL (0.55-1.30); GLOMERULAR FILTRATION RATE > 60.0 (>51); GLUCOSE, FASTING 80 MG/DL (60-100); HDL CHOLESTEROL 101.8 MG/DL (>40); LDL CHOLESTEROL 75.6 MG/DL (<100); NON-HDL-C 108.2 MG/DL; POTASSIUM SERUM 4.3 MMOL/L (3.5-5.1); SODIUM LEVEL 139 MMOL/L (136-145); TOTAL PROTEIN 7.2 G/DL (5.7-8.2); TRIGLYCERIDES LEVEL 163 MG/DL (<150)
[2023-06-12 15:12] LABS: THYROID STIMULATING HORMONE 7.744 uIU/ML (0.55-4.78)
== END ==
LOC: M LAB REF 11:59
PROVIDERS: ATTEND Family Medicine Addiction Medicine
DX: E55.9 Vitamin D deficiency, unspecified (principal); E03.9 Hypothyroidism, unspecified

== ENCOUNTER → 2023-07-03 | Outpatient (CLI) | payer MEDICARE ==
[~2023-07-03] MED LIST changes: +CELE0.09 PO; -CELE1CAP9 PO; +QUET400T2; +TEMA30CA
== END ==
LOC: M SOG 08:09
PROVIDERS: ATTEND Orthopaedic Surgery
DX: S93.402A Sprain of unspecified ligament of left ankle, initial encounter (principal); X58.XXXA Exposure to other specified factors, initial encounter; Y92.9 Unspecified place or not applicable; Y93.9 Activity, unspecified; Y99.9 Unspecified external cause status

== ENCOUNTER → 2023-07-19 | Outpatient (CLI) | payer MEDICARE | LOC: M SOG 07:51 | PROVIDERS: ATTEND Orthopaedic Surgery | DX: S82.62XA Displaced fracture of lateral malleolus of left fibula, initial encounter for closed fracture (principal); M25.472 Effusion, left ankle; Y93.9 Activity, unspecified; Y92.9 Unspecified place or not applicable ==

== ENCOUNTER → 2023-08-14 | Outpatient (CLI) | payer MEDICARE ==
[~2023-08-14] MED LIST changes: +E-Z-GAS II EFFERVESCENT PACKET (SODIUM BICARB./CITRIC ACID/SIMETHICONE) As Ordered ONE; +E-Z-HD 98% w/w 340GM SUSP BTL As Ordered ONE; +E-Z-PAQUE 96% w/w SUSP 176GM BTL As Ordered ONE
== END ==
LOC: M RAD 09:18
PROVIDERS: ATTEND Physician Assistant Medical
DX: R13.12 Dysphagia, oropharyngeal phase (principal); K57.10 Diverticulosis of small intestine without perforation or abscess without bleeding; K31.89 Other diseases of stomach and duodenum

== ENCOUNTER → 2023-11-12 | Day surgery (SDC) | payer MEDICARE ==
[~2023-11-12] VITALS: Ht 160 cm; Wt 127.9 kg
[~2023-11-12] MED LIST changes: -E-Z-GAS II EFFERVESCENT PACKET (SODIUM BICARB./CITRIC ACID/SIMETHICONE) As Ordered ONE; -E-Z-HD 98% w/w 340GM SUSP BTL As Ordered ONE; -E-Z-PAQUE 96% w/w SUSP 176GM BTL As Ordered ONE; -EFFE150C2 PO; +EFFE150C3 PO; +LAMO150T3 PO; +LEVO150T7 PO; +LIDOCAINE 2% 100MG/5ML SDV (FOR ANES.) As Ordered ONE; +NS 1,000 ML IV ONE; -QUET400T2; +RISP-7 PO; -TEMA30CA; +TEMA30CA PO; +fentaNYL 100 MCG/2 ML INJECTION As Ordered ONE; +propofoL 200 MG/20 ML VIAL As Ordered ONE
[2023-11-12 14:33] VITALS: TEMP 98.2
[2023-11-12 14:56] VITALS: BP 118/77; O2SAT 94
== END | disposition home or self-care (01) ==
LOC: M OPP 13:09
PROVIDERS: ATTEND Internal Medicine Gastroenterology
DX: K21.00 Gastro-esophageal reflux disease with esophagitis, without bleeding (principal); Z98.890 Other specified postprocedural states; K31.89 Other diseases of stomach and duodenum; R13.10 Dysphagia, unspecified; R12 Heartburn; Z79.02 Long term (current) use of antithrombotics/antiplatelets; Z79.51 Long term (current) use of inhaled steroids; Z79.890 Hormone replacement therapy; Z79.899 Other long term (current) drug therapy; Z88.0 Allergy status to penicillin; Z88.1 Allergy status to other antibiotic agents; Z88.6 Allergy status to analgesic agent; Z88.8 Allergy status to other drugs, medicaments and biological substances
CPT/HCPCS: 43239; 88305; J3010

== ENCOUNTER → 2024-01-17 | Outpatient (REF) | payer MEDICARE ==
[~2024-01-17] MED LIST changes: -LIDOCAINE 2% 100MG/5ML SDV (FOR ANES.) As Ordered ONE; -NS 1,000 ML IV ONE; -RISP-7 PO; +RISP0.5T82 PO; -fentaNYL 100 MCG/2 ML INJECTION As Ordered ONE; -propofoL 200 MG/20 ML VIAL As Ordered ONE
[2024-01-17 12:48] LABS: ALBUMIN 3.3 G/DL (3.2-5.2); ALKALINE PHOSPHATASE 99 U/L (46-116); ALT/SGPT 17 U/L (7.0-40); AST/SGOT 9 U/L (<34); BILIRUBIN,TOTAL 0.3 MG/DL (0.3-1.2); BLOOD UREA NITROGEN 13 MG/DL (9-23); CALCIUM LEVEL 9.1 MG/DL (8.5-10.1); CARBON DIOXIDE LEVEL 22 MMOL/L (20-31); CHLORIDE LEVEL 110 MMOL/L (98-107); CHOLESTEROL LEVEL 190 MG/DL (<200); CHOLESTEROL RISK RATIO 2.13 (<5); CREATININE FOR GFR 0.79 MG/DL (0.55-1.30); GLOMERULAR FILTRATION RATE > 60.0 (>51); GLUCOSE, FASTING 88 MG/DL (60-100); HDL CHOLESTEROL 88.8 MG/DL (>40); LDL CHOLESTEROL 67.4 MG/DL (<100); NON-HDL-C 101.2 MG/DL; POTASSIUM SERUM 4.2 MMOL/L (3.5-5.1); SODIUM LEVEL 140 MMOL/L (136-145); TOTAL PROTEIN 6.8 G/DL (5.7-8.2); TRIGLYCERIDES LEVEL 169 MG/DL (<150)
[2024-01-17 12:53] LABS: THYROID STIMULATING HORMONE 0.389 uIU/ML (0.55-4.78)
[2024-01-17 12:54] LABS: TOTAL 25(OH) VITAMIN D 23.6 NG/ML (20.0-100.0)
== END ==
LOC: M LAB REF 11:52
PROVIDERS: ATTEND Family Medicine Addiction Medicine
DX: E03.9 Hypothyroidism, unspecified (principal); E55.9 Vitamin D deficiency, unspecified

== ENCOUNTER 2024-04-01 18:09 | Inpatient (IN) | payer MEDICARE ==
[~2024-04-01] VITALS: Ht 160 cm; Wt 37.5 kg
[2024-04-01 19:10] LABS: HEMATOCRIT 39.2 % (36.0-47.0); HEMOGLOBIN 13.2 g/dl (12.0-15.5); MEAN CORPUSCULAR HEMOGLOBIN 32.5 pg (27.0-33.0); MEAN CORPUSCULAR HGB CONC 33.7 g/dl (32.0-36.5); MEAN CORPUSCULAR VOLUME 96.6 fl (80.0-96.0); PLATELET COUNT, AUTOMATED 251 10^3/uL (150-450); RED BLOOD COUNT 4.06 10^6/uL (4.00-5.40)
[2024-04-01 19:32] LABS: AMPHETAMINES LEVEL URINE NEGATIVE (NEGATIVE); BARBITURATES URINE NEGATIVE (NEGATIVE); COCAINE METABOLITE URINE NEGATIVE (NEGATIVE); METHADONE URINE NEGATIVE (NEGATIVE); OPIATES URINE NEGATIVE (NEGATIVE); PHENCYCLIDINE URINE NEGATIVE (NEGATIVE)
[2024-04-01 19:34] LABS: ETHYL ALCOHOL (ETHANOL) 0.005 % (0.000-0.010)
[2024-04-01 19:36] LABS: ALBUMIN 3.5 G/DL (3.2-5.2); ALKALINE PHOSPHATASE 95 U/L (46-116); ALT/SGPT 18 U/L (7.0-40); AST/SGOT 11 U/L (<34); BILIRUBIN,DIRECT < 0.1 MG/DL (<0.4); BILIRUBIN,TOTAL 0.2 MG/DL (0.3-1.2); BLOOD UREA NITROGEN 15 MG/DL (9-23); CALCIUM LEVEL 9.5 MG/DL (8.5-10.1); CARBON DIOXIDE LEVEL 21 MMOL/L (20-31); CHLORIDE LEVEL 112 MMOL/L (98-107); CREATININE FOR GFR 0.87 MG/DL (0.55-1.30); GLOMERULAR FILTRATION RATE > 60.0 (>51); GLUCOSE, FASTING 90 MG/DL (60-100); SALICYLATE LEVEL < 3.0 MG/DL (<30); SODIUM LEVEL 140 MMOL/L (136-145); TOTAL PROTEIN 6.8 G/DL (5.7-8.2)
[2024-04-01 19:37] LABS: BENZODIAZEPINES URINE POSITIVE (NEGATIVE); CANNABINOIDS URINE POSITIVE (NEGATIVE)
[2024-04-01 19:38] LABS: THYROID STIMULATING HORMONE 2.058 uIU/ML (0.55-4.78)
[2024-04-01] MEDS: TOPIRAMATE (TopAMAX) 100 MG TAB PO ONE (21:19)
[2024-04-01] MEDS: QUEtiapine FUMARATE 200 MG TAB PO ONE (21:19)
[2024-04-01] MEDS: ALPRAZolam 0.5 MG TAB PO ONE (21:20)
[2024-04-01] MEDS: TEMAZEPAM 15 MG CAP PO ONE (21:20)
[2024-04-01] MEDS: risperiDONE 0.5 MG TAB PO ONE (21:20)
[2024-04-01] MEDS ORDERED: HOME MED LIST COMPLETE! XX SCH (22:15)
[2024-04-02] MEDS ORDERED: ALBUTEROL 90 MCG/ACT 8GM HFA INHALER INH PRN ×2 (09:25→09:45)
[2024-04-02] MEDS ORDERED: carisoprodoL 350 MG TAB PO PRN ×2 (09:25→09:45)
[2024-04-02] MEDS: ATORVASTATIN 10 MG TAB PO SCH (10:01)
[2024-04-02] MEDS: risperiDONE 0.5 MG TAB PO SCH (10:01)
[2024-04-02] MEDS: TOPIRAMATE (TopAMAX) 100 MG TAB PO SCH (10:01)
[2024-04-02] MEDS: VITAMIN D 1,000 INTERNATIONAL UNITS TABLET PO SCH (10:01)
[2024-04-02] MEDS: ALPRAZolam 0.5 MG TAB PO SCH (10:02)
[2024-04-02] MEDS: BACTRIM 160MG/800MG DS TAB PO SCH (10:02)
[2024-04-02] MEDS: LEVOTHYROXINE 150MCG TABLET (0.15MG) PO SCH (11:10)
[2024-04-02] MEDS ORDERED: ALPRAZolam 0.5 MG TAB PO SCH (13:00)
[2024-04-02] MEDS ORDERED: MOM 30ML SUSPENSION UDC PO PRN (14:30)
[2024-04-02] MEDS ORDERED: MAALOX 30 ML SUSP *UDC PO PRN (14:30)
[2024-04-02 17:25] VITALS: BP 135/93; TEMP 97; O2SAT 97
[2024-04-02] MEDS: QUEtiapine FUMARATE 200 MG TAB PO SCH (20:22)
[2024-04-02] MEDS: QUEtiapine FUMARATE 100 MG TAB PO SCH (20:22)
[2024-04-02] MEDS: TEMAZEPAM 15 MG CAP PO SCH (20:22)
[2024-04-02] MEDS ORDERED: QUEtiapine FUMARATE 100 MG TAB PO SCH (21:00)
[2024-04-02] MEDS ORDERED: VITAMIN D 1,000 INTERNATIONAL UNITS TABLET PO SCH (21:00)
[2024-04-02] MEDS ORDERED: QUEtiapine FUMARATE 200 MG TAB PO SCH (21:00)
[2024-04-02] MEDS ORDERED: TEMAZEPAM 15 MG CAP PO SCH (21:00)
[2024-04-02] MEDS ORDERED: risperiDONE 0.5 MG TAB PO SCH (21:00)
[2024-04-02] MEDS ORDERED: TOPIRAMATE (TopAMAX) 100 MG TAB PO SCH (21:00)
[2024-04-03] MEDS: traZODone 50 MG TAB PO PRN (00:18)
[2024-04-03 06:28] VITALS: BP 137/76; TEMP 97; O2SAT 98
[2024-04-03] MEDS: LEVOTHYROXINE 150MCG TABLET (0.15MG) PO SCH (06:52)
[2024-04-03] MEDS ORDERED: LEVOTHYROXINE 150MCG TABLET (0.15MG) PO SCH (09:00)
[2024-04-03] MEDS ORDERED: TOPIRAMATE (TopAMAX) 100 MG TAB PO SCH (09:00)
[2024-04-03] MEDS ORDERED: ATORVASTATIN 10 MG TAB PO SCH ×2 (09:00)
[2024-04-03] MEDS ORDERED: ALBUTEROL 90 MCG/ACT 8GM HFA INHALER INH PRN (11:35)
[2024-04-03] MEDS: NITROFURANTOIN (MACROBID) 100 MG CAP PO SCH (11:39)
[2024-04-03] MEDS: ATORVASTATIN 10 MG TAB PO SCH (13:14)
[2024-04-03] MEDS: VITAMIN D 1,000 INTERNATIONAL UNITS TABLET PO SCH (13:14)
[2024-04-03] MEDS: ALPRAZolam 0.5 MG TAB PO SCH (13:14)
[2024-04-03] MEDS: TOPIRAMATE (TopAMAX) 100 MG TAB PO SCH (13:14)
[2024-04-03] MEDS: carisoprodoL 350 MG TAB PO PRN (14:27)
[2024-04-03 18:02] VITALS: BP 106/74; TEMP 98.9; O2SAT 99
[2024-04-03] MEDS: QUEtiapine FUMARATE 200 MG TAB PO SCH (20:28)
[2024-04-03] MEDS: risperiDONE 0.5 MG TAB PO SCH (20:28)
[2024-04-03] MEDS: QUEtiapine FUMARATE 100 MG TAB PO SCH (20:28)
[2024-04-03] MEDS: TEMAZEPAM 15 MG CAP PO PRN (20:28)
[2024-04-03] MEDS: lamoTRIgine 100MG TAB PO SCH (20:28)
[2024-04-04] MEDS: diphenhydrAMINE 25MG CAP PO PRN (01:06)
[2024-04-04 06:20] VITALS: BP 106/73; TEMP 96.9; O2SAT 100
[2024-04-04 07:32] LABS: CHOLESTEROL RISK RATIO 2.32 (<5); HDL CHOLESTEROL 90.3 MG/DL (>40); LDL CHOLESTEROL 86.7 MG/DL (<100); NON-HDL-C 119.7 MG/DL
[2024-04-04] MEDS ORDERED: LINZESS 290 MCG PO SCH (09:00)
== END 2024-04-04 11:15 | disposition home or self-care (01) | DRG 885 ==
LOC: M ED 18:09 → M ED INP 04-02 14:26 → M PSY 04-02 15:54
PROVIDERS: ADMIT Student in an Organized Health Care Education/Training Program; ATTEND Student in an Organized Health Care Education/Training Program
DX: F31.9 Bipolar disorder, unspecified (principal); R45.851 Suicidal ideations; N39.0 Urinary tract infection, site not specified; F12.10 Cannabis abuse, uncomplicated; B96.20 Unspecified Escherichia coli [E. coli] as the cause of diseases classified elsewhere; K58.9 Irritable bowel syndrome, unspecified; E03.9 Hypothyroidism, unspecified; K21.9 Gastro-esophageal reflux disease without esophagitis; F17.200 Nicotine dependence, unspecified, uncomplicated; M54.9 Dorsalgia, unspecified; G89.29 Other chronic pain; G43.909 Migraine, unspecified, not intractable, without status migrainosus; E78.5 Hyperlipidemia, unspecified; Z79.890 Hormone replacement therapy; Z79.899 Other long term (current) drug therapy; Z88.0 Allergy status to penicillin; Z88.1 Allergy status to other antibiotic agents; Z88.6 Allergy status to analgesic agent; Z88.8 Allergy status to other drugs, medicaments and biological substances; Z63.5 Disruption of family by separation and divorce; Z63.8 Other specified problems related to primary support group; Z91.51 Personal history of suicidal behavior

== ENCOUNTER → 2024-04-04 | Outpatient (CLI) | payer MEDICARE | LOC: M RAD 15:28 | PROVIDERS: ATTEND Internal Medicine Pulmonary Disease | DX: Z85.118 Personal history of other malignant neoplasm of bronchus and lung (principal) ==

== ENCOUNTER → 2024-04-07 | Outpatient (REF) | payer MEDICARE ==
[2024-04-07 18:37] LABS: ALBUMIN 3.3 G/DL (3.2-5.2); ALKALINE PHOSPHATASE 106 U/L (46-116); ALT/SGPT 24 U/L (7.0-40); AST/SGOT 13 U/L (<34); BILIRUBIN,TOTAL 0.3 MG/DL (0.3-1.2); BLOOD UREA NITROGEN 18 MG/DL (9-23); CALCIUM LEVEL 9.3 MG/DL (8.5-10.1); CARBON DIOXIDE LEVEL 23 MMOL/L (20-31); CHLORIDE LEVEL 111 MMOL/L (98-107); CHOLESTEROL LEVEL 194 MG/DL (<200); CHOLESTEROL RISK RATIO 2.21 (<5); GLOMERULAR FILTRATION RATE > 60.0 (>51); GLUCOSE, FASTING 86 MG/DL (60-100); HDL CHOLESTEROL 87.4 MG/DL (>40); LDL CHOLESTEROL 75.6 MG/DL (<100); NON-HDL-C 106.6 MG/DL; POTASSIUM SERUM 4.5 MMOL/L (3.5-5.1); SODIUM LEVEL 142 MMOL/L (136-145); TOTAL PROTEIN 6.7 G/DL (5.7-8.2); TRIGLYCERIDES LEVEL 155 MG/DL (<150)
== END ==
LOC: M LAB REF 16:47
PROVIDERS: ATTEND Family Medicine Addiction Medicine
DX: E03.9 Hypothyroidism, unspecified (principal)

== ENCOUNTER 2024-08-05 06:54 | Day surgery (SDC) | payer MEDICARE ==
[~2024-08-05] VITALS: Ht 160 cm; Wt 90.5 kg
[~2024-08-05 06:54] MED LIST changes: +ALBU8.5H INH; +BUDE10.2 INH
[2024-08-05] MEDS: NS 250 ML IV ONE (07:11)
[2024-08-05] MEDS ORDERED: propofoL 200 MG/20 ML VIAL As Ordered ONE (08:10)
[2024-08-05] MEDS ORDERED: LIDOCAINE 2% 100MG/5ML SDV (FOR ANES.) As Ordered ONE (08:10)
[2024-08-05 08:33] VITALS: TEMP 97
[2024-08-05 08:47] VITALS: BP 115/79; O2SAT 98
== END 2024-08-05 09:00 | disposition home or self-care (01) ==
LOC: M OPP 06:54
PROVIDERS: ATTEND Internal Medicine Gastroenterology
DX: K63.5 Polyp of colon (principal); Z86.0100 Personal history of colon polyps, unspecified; K64.8 Other hemorrhoids; E78.5 Hyperlipidemia, unspecified; E03.9 Hypothyroidism, unspecified; K21.9 Gastro-esophageal reflux disease without esophagitis; F41.9 Anxiety disorder, unspecified; F31.9 Bipolar disorder, unspecified; G43.909 Migraine, unspecified, not intractable, without status migrainosus; J45.909 Unspecified asthma, uncomplicated; Z85.118 Personal history of other malignant neoplasm of bronchus and lung; Z87.891 Personal history of nicotine dependence; Z88.0 Allergy status to penicillin; Z88.1 Allergy status to other antibiotic agents; Z88.6 Allergy status to analgesic agent; Z88.8 Allergy status to other drugs, medicaments and biological substances; Z79.51 Long term (current) use of inhaled steroids; Z79.890 Hormone replacement therapy; Z79.899 Other long term (current) drug therapy

== ENCOUNTER → 2024-10-24 | Outpatient (REF) | payer MEDICARE ==
[2024-10-24 20:53] LABS: Trichomonas vaginalis (AMP) NOT DETECTED (NEGATIVE)
[2024-10-24 21:17] LABS: GC DNA AMPLIFICATION NEGATIVE (NEGATIVE)
== END ==
LOC: M LAB REF 18:26
PROVIDERS: ATTEND Nurse Practitioner Family
DX: R30.0 Dysuria (principal); Z11.3 Encounter for screening for infections with a predominantly sexual mode of transmission; Z72.89 Other problems related to lifestyle

== ENCOUNTER → 2024-12-08 | Outpatient (CLI) | payer MEDICARE ==
[~2024-12-08] MED LIST changes: +CARI-555; +CARI-555 PO; -CARI1TAB7; -CARI1TAB7 PO
== END ==
LOC: M RAD 13:50
PROVIDERS: ATTEND Psychiatry & Neurology Neurology
DX: G44.311 Acute post-traumatic headache, intractable (principal)

== ENCOUNTER → 2024-12-23 | Outpatient (CLI) | payer MEDICARE | LOC: M RAD 08:30 | PROVIDERS: ATTEND Physician Assistant Medical | DX: R10.84 Generalized abdominal pain (principal) ==

== ENCOUNTER → 2025-02-03 | Outpatient (CLI) | payer MEDICARE ==
[~2025-02-03] MED LIST changes: +PROHANCE 279.3MG/ML 15ML VIAL As Ordered ONE
== END ==
LOC: M RAD 08:30
PROVIDERS: ATTEND Physician Assistant Medical
DX: D44.12 Neoplasm of uncertain behavior of left adrenal gland (principal)
CPT/HCPCS: 74183; A9576

== ENCOUNTER → 2025-05-18 | Outpatient (CLI) | payer MEDICARE ==
[~2025-05-18] MED LIST changes: +AMIT10TA11 PO; -AMIT10TA7 PO; -PROHANCE 279.3MG/ML 15ML VIAL As Ordered ONE; +TOPI-14 PO; +TOPI-257 PO; -TOPI100T9 PO; -TOPI200T7 PO
== END ==
LOC: M RAD 14:46
PROVIDERS: ATTEND Internal Medicine Pulmonary Disease
DX: Z12.2 Encounter for screening for malignant neoplasm of respiratory organs (principal); Z87.891 Personal history of nicotine dependence; J98.11 Atelectasis; Z90.2 Acquired absence of lung [part of]; I70.0 Atherosclerosis of aorta; I25.10 Atherosclerotic heart disease of native coronary artery without angina pectoris; D35.02 Benign neoplasm of left adrenal gland; I77.810 Thoracic aortic ectasia

== ENCOUNTER → 2025-07-03 | Outpatient (REF) | payer MEDICARE ==
[2025-07-07 14:53] LABS: HPV APTIMA Not Detected (Not Detected)
== END ==
LOC: M SFHCWAGY 13:36
PROVIDERS: ATTEND Obstetrics & Gynecology
DX: Z12.4 Encounter for screening for malignant neoplasm of cervix (principal); Z77.9 Other contact with and (suspected) exposures hazardous to health
CPT/HCPCS: 87624; G0123

== ENCOUNTER → 2025-07-03 | Outpatient (CLI) | payer MEDICARE | LOC: M WHC 09:30 | PROVIDERS: ATTEND Obstetrics & Gynecology | DX: Z12.31 Encounter for screening mammogram for malignant neoplasm of breast (principal); R92.313 Mammographic fatty tissue density, bilateral breasts ==

== ENCOUNTER → 2025-09-08 | Outpatient (REF) | payer MEDICARE ==
[2025-09-08 13:06] LABS: ALT/SGPT 10.0 U/L (7.0-40); AST/SGOT 14.0 U/L (<34); CALCIUM LEVEL 9.2 MG/DL (8.5-10.1); CARBON DIOXIDE LEVEL 23.0 MMOL/L (20-31); CHLORIDE LEVEL 112.0 MMOL/L (98-107); CHOLESTEROL LEVEL 188.0 MG/DL (<200); CHOLESTEROL RISK RATIO 2.55 (<5); CREATININE FOR GFR 0.85 MG/DL (0.55-1.30); GLOMERULAR FILTRATION RATE 79.9 (>51); LDL CHOLESTEROL 92.3 MG/DL (<100); NON-HDL-C 114.5 MG/DL; POTASSIUM SERUM 4.4 MMOL/L (3.5-5.1); SODIUM LEVEL 142.0 MMOL/L (136-145); TRIGLYCERIDES LEVEL 111.0 MG/DL (<150)
== END ==
LOC: M LAB REF 11:56
PROVIDERS: ATTEND Family Medicine Addiction Medicine
DX: E03.9 Hypothyroidism, unspecified (principal)